=== PATIENT | male | born 1965 | race Caucasian/White ===

== ENCOUNTER 2016-12-13 17:26 | Emergency (ER) | payer OTHER ==
[2016-12-13 17:49] VITALS: RESP 18
--- NOTE | 2016-12-13 18:22 | ED ---
General Adult HPI - General Chief complaint: Psychiatric Symptoms Stated complaint: ETOH/Suicidal Time Seen by Provider: 12/13/16 17:29 Source: patient, police, EMS, RN notes reviewed, old records reviewed Mode of arrival: EMS Limitations: no limitations - History of Present Illness Initial comments: Chief complaint history of present illness this is a 51-year-old male who is intoxicated. Brought emergency room by police. States he is suicidal. States he's been kicked out of most of the facilities in town because of alcohol. Denies any current medical problems. Blood alcohol is 0.138 - Related Data Home Medications Medication Instructions Recorded Confirmed QUEtiapine FUMARATE [SEROquel] 600 mg PO HS 05/04/16 06/26/16 Previous Rx's Medication Instructions Recorded Nicotine 21Mg/24Hr Patch [Habitrol] 1 patch TRANSDERM DAILY #30 patch 06/05/16 Benztropine Mesylate [Cogentin] 1 mg PO DAILY #30 tab 06/30/16 Escitalopram [Lexapro] 20 mg PO DAILY #30 tab 06/30/16 Folic Acid 1 mg PO DAILY@1200 #30 tab 06/30/16 Haloperidol [Haldol] 10 mg PO HS #30 tab 06/30/16 Ibuprofen [Motrin] 800 mg PO Q8HR PRN #20 tab 06/30/16 LORazepam [Ativan] 1 mg PO Q4HR PRN #20 tab 06/30/16 Lisinopril [Zestril] 10 mg PO DAILY #30 tab 06/30/16 Loratadine [Claritin] 10 mg PO DAILY #30 tab 06/30/16 Propranolol HCl [Inderal Xl] 120 mg PO DAILY #30 cap.er.24h 06/30/16 QUEtiapine [SEROquel] 400 mg PO HS #30 tab 06/30/16 Thiamine [Vitamin B-1] 100 mg PO DAILY@1200 #30 tab 06/30/16 Topiramate [Topamax] 50 mg PO BID #30 tablet 06/30/16 Venlafaxine HCl [Effexor XR] 300 mg PO DAILY #30 cap.er.24h 06/30/16 cloNIDine HCL [Catapres] 0.1 mg PO TID PRN #60 tab 06/30/16 Allergies Allergy/AdvReac Type Severity Reaction Status Date / Time No Known Allergies Allergy Verified 06/26/16 04:07 Review of Systems ROS Statement: Those systems with pertinent positive or pertinent negative responses have been documented in the HPI. Review of systems patient denying any headache chest pain shortness breath GI/ problems. States not alcoholic. States he's depressed and wants to kill himself. States he's penniless homeless. He's been kicked out of most homeless shelters because of his alcohol problems. States he is suicidal all systems are reviewed. Past medical problems denies hypertension, denies any medical problems other than alcohol abuse. Surgeries he has a salma in his left femur had reconstruction of his right knee. Family history mental health issues or relatives with dependencies. Patient denies any ALLERGIES she does smoke strongly encouraged to stop the patient's alcoholic. ROS Other: All systems not noted in ROS Statement are negative. Past Medical History Past Medical History: Hypertension Additional Past Medical History / Comment(s): etoh History of Any Multi-Drug Resistant Organisms: None Reported Past Surgical History: Orthopedic Surgery Additional Past Surgical History / Comment(s): Right knee surgery and salma placed in left femur, 3 surgeries on his eyes. Past Anesthesia/Blood Transfusion Reactions: No Reported Reaction Past Psychological History: Anxiety, Bipolar, Depression, Schizoaffective Disorder Additional Psychological History / Comment(s): pt states he hears voices in his head, and they them him to harm himself and sometimes others. Smoking Status: Current every day smoker Past Alcohol Use History: Abuse, Daily, Heavy Additional Past Alcohol Use History / Comment(s): Patient states that he is a smoker one pack per day for 40 years. He states he smokes marijuana when he can get it. He drinks alcohol 12 pack per day for greater than 20 years. Patient is single and does not have any children. Patient is unemployment, homeless, and he is trying to get disability. Past Drug Use History: None Reported - Past Family History Mother Additional Family Medical History / Comment(s): Mother at age 36 from motor vehicle accident. His father is also past but does not know the cause or his age. Patient has 3 brothers that are apparently without major medical problems. General Exam - General Exam Comments Initial Comments: General: The patient is awake and answering questions appropriately. Denies any current medical problems. Denying any headache chest pain shortness breath GI/ problems. He is intoxicated breath alcohol is 0.138. Vital signs show temperature 96.2 pulse 83 respiratory rate 18 pulse ox 90% room air blood pressure 142/92 elevated systolic and diastolic noted. Patient denies ever having had hypertension in the past. He'll be in hospital and is to be dealt with here or discharge to be given then pain follow-up with a local family physician next week. Eye: Pupils are equal, extra-ocular movements are intact; there is normal conjunctiva bilaterally. No signs of icterus. Ears, nose, mouth and throat: There are moist mucous membranes and no oral lesions. Neck: The neck is supple, there is no tenderness , no complaint of neck pain. Cardiovascular: There is a regular rate and rhythm. No murmur, rub or gallop is appreciated. Respiratory: Lungs are clear to auscultation, respirations are non-labored, breath sounds are equal. No wheezes, stridor, rales, or rhonchi. Gastrointestinal: Soft, non-distended, non-tender abdomen without masses or organomegaly noted. There is no rebound or guarding present. Denies pain to his abdomen or back Back: Chronic back pain. No new issues. Musculoskeletal: Normal ROM, no tenderness, There is no pedal edema. There is no calf tenderness or swelling. Sensation intact. Neurological: No dizziness. No evidence of any focal or lateralizing findings. No complaint of any weakness. Skin: Skin is warm and dry and no rashes or lesions are noted. Psychiatric: Depressed, suicidal, plan would be to jump in front of cars. Limitations: no limitations Course Vital Signs 12/13/16 17:47 Temperature 96.2 F L Pulse Rate 83 Respiratory 18 Rate Blood Pressure 142/92 O2 Sat by Pulse 98 Oximetry Medical Decision Making - Medical Decision Making Medical decision-making. The patient was evaluated by the psychiatric nurse. The act team was notified. The plant this time is for the patient to follow-up tomorrow with [facility]. This evening [facility] He will be taken there by taxi. Patient was advised to consider alcohol rehab programs. - Lab Data Lab Results 12/13/16 Range/Units 18:30 Urine Opiates Screen Not Detected (NotDetected) Ur Oxycodone Screen Not Detected (NotDetected) Urine Methadone Screen Not Detected (NotDetected) Ur Propoxyphene Screen Not Detected (NotDetected) Ur Barbiturates Screen Not Detected (NotDetected) U Tricyclic Antidepress Not Detected (NotDetected) Ur Phencyclidine Scrn Not Detected (NotDetected) Ur Amphetamines Screen Not Detected (NotDetected) U Methamphetamines Scrn Not Detected (NotDetected) U Benzodiazepines Scrn Not Detected (NotDetected) Urine Cocaine Screen Not Detected (NotDetected) U Marijuana (THC) Screen Not Detected (NotDetected) Disposition Clinical Impression: ETOH abuse Disposition: HOME SELF-CARE Condition: Stable Instructions: Abuse of Alcohol (ED) Additional Instructions: Follow-up tomorrow morning with [facility]. Follow-up with Alcoholics Anonymous and consider going to rehab programs for alcohol abuse Time of Disposition: 00:51
[2016-12-14 00:50] VITALS: BP 129/85; PULSE 98; TEMP 98
== END 2016-12-14 00:53 | disposition home or self-care (01) ==
LOC: EC 17:26
DX: F10.129 Alcohol abuse with intoxication, unspecified (principal); Y90.6 Blood alcohol level of 120-199 mg/100 ml; Z79.899 Other long term (current) drug therapy; I10 Essential (primary) hypertension; Z59.0 Homelessness; F41.9 Anxiety disorder, unspecified; F31.9 Bipolar disorder, unspecified; F25.9 Schizoaffective disorder, unspecified; F17.200 Nicotine dependence, unspecified, uncomplicated
CPT/HCPCS: 80306; 82075; 99285

== ENCOUNTER 2017-04-03 00:11 | Emergency (ER) | payer OTHER ==
[2017-04-03 00:18] VITALS: RESP 18
--- NOTE | 2017-04-03 02:35 | ED ---
Psych HPI - General Chief Complaint: Psychiatric Symptoms Stated Complaint: Suicidal Time Seen by Provider: 04/03/17 00:43 Source: patient, RN notes reviewed Mode of arrival: ambulatory - History of Present Illness Initial Comments: Patient is a 51-year-old male presents to the emergency room for psychiatric evaluation. Patient states he's been very depressed. Patient states he does have a history of depression. Patient states he's been on depression medications for a while. Patient states he sees a counselor and psychiatrist. Patient states that over the past few days he's been developing suicidal ideations. Patient denies any specific trigger. Patient states he wants to jump off the bridge. Patient does admit that he had a few beers earlier today. Patient denies illicit drug use. Patient states he smokes about a pack per day. Patient denies homicidal ideations. Patient denies visual or auditory hallucinations. Patient denies any significant past medical history. Patient denies headache, dizziness, chest pain, shortness of breath, abdominal pain, nausea, vomiting, fevers, chills. - Related Data Home Medications Medication Instructions Recorded Confirmed QUEtiapine FUMARATE [SEROquel] 600 mg PO HS 05/04/16 04/03/17 Previous Rx's Medication Instructions Recorded Nicotine 21Mg/24Hr Patch [Habitrol] 1 patch TRANSDERM DAILY #30 patch 06/05/16 Benztropine Mesylate [Cogentin] 1 mg PO DAILY #30 tab 06/30/16 Escitalopram [Lexapro] 20 mg PO DAILY #30 tab 06/30/16 Folic Acid 1 mg PO DAILY@1200 #30 tab 06/30/16 Haloperidol [Haldol] 10 mg PO HS #30 tab 06/30/16 Ibuprofen [Motrin] 800 mg PO Q8HR PRN #20 tab 06/30/16 LORazepam [Ativan] 1 mg PO Q4HR PRN #20 tab 06/30/16 Lisinopril [Zestril] 10 mg PO DAILY #30 tab 06/30/16 Loratadine [Claritin] 10 mg PO DAILY #30 tab 06/30/16 Propranolol HCl [Inderal Xl] 120 mg PO DAILY #30 cap.er.24h 06/30/16 QUEtiapine [SEROquel] 400 mg PO HS #30 tab 06/30/16 Thiamine [Vitamin B-1] 100 mg PO DAILY@1200 #30 tab 06/30/16 Topiramate [Topamax] 50 mg PO BID #30 tablet 06/30/16 Venlafaxine HCl [Effexor XR] 300 mg PO DAILY #30 cap.er.24h 06/30/16 cloNIDine HCL [Catapres] 0.1 mg PO TID PRN #60 tab 06/30/16 Allergies Allergy/AdvReac Type Severity Reaction Status Date / Time No Known Allergies Allergy Verified 04/03/17 00:18 Review of Systems ROS Statement: Those systems with pertinent positive or pertinent negative responses have been documented in the HPI. ROS Other: All systems not noted in ROS Statement are negative. Past Medical History Past Medical History: Hypertension Additional Past Medical History / Comment(s): etoh History of Any Multi-Drug Resistant Organisms: None Reported Past Surgical History: Orthopedic Surgery Additional Past Surgical History / Comment(s): Right knee surgery and salma placed in left femur, 3 surgeries on his eyes. Past Anesthesia/Blood Transfusion Reactions: No Reported Reaction Past Psychological History: Anxiety, Bipolar, Depression, Schizoaffective Disorder Smoking Status: Current every day smoker Past Alcohol Use History: Abuse, Daily, Heavy Past Drug Use History: None Reported - Past Family History Mother Additional Family Medical History / Comment(s): Mother at age 36 from motor vehicle accident. His father is also past but does not know the cause or his age. Patient has 3 brothers that are apparently without major medical problems. General Exam - General Exam Comments Initial Comments: sitting in exam room, no acute distress. Limitations: no limitations General appearance: alert, in no apparent distress, appears intoxicated Head exam: Present: atraumatic, normocephalic, normal inspection Eye exam: Present: normal appearance ENT exam: Present: normal exam Neck exam: Present: normal inspection Respiratory exam: Present: normal lung sounds bilaterally. Absent: respiratory distress Cardiovascular Exam: Present: regular rate, normal rhythm, normal heart sounds Extremities exam: Present: normal inspection Back exam: Present: normal inspection Neurological exam: Present: alert, oriented X3, CN II-XII intact, normal gait Psychiatric exam: Present: normal affect, normal mood Skin exam: Present: warm, dry, intact, normal color. Absent: rash Course Vital Signs 04/03/17 04/03/17 00:14 03:24 Temperature 98.1 F 97.8 F Pulse Rate 102 H 82 Respiratory 18 18 Rate Blood Pressure 115/71 142/70 O2 Sat by Pulse 95 95 Oximetry Medical Decision Making - Medical Decision Making Patient is a 51-year-old male presents emergency room facility for evaluation. Patient is well-known to the emergency room and to emergency psych services. Patient was evaluated by psych. The ACT team was notified. ACT team states that they will have patient follow up with [facility] tomorrow. - Lab Data Lab Results 04/03/17 Range/Units 00:40 Urine Opiates Screen Not Detected (NotDetected) Ur Oxycodone Screen Not Detected (NotDetected) Urine Methadone Screen Not Detected (NotDetected) Ur Propoxyphene Screen Not Detected (NotDetected) Ur Barbiturates Screen Not Detected (NotDetected) U Tricyclic Antidepress Not Detected (NotDetected) Ur Phencyclidine Scrn Not Detected (NotDetected) Ur Amphetamines Screen Not Detected (NotDetected) U Methamphetamines Scrn Not Detected (NotDetected) U Benzodiazepines Scrn Not Detected (NotDetected) Urine Cocaine Screen Not Detected (NotDetected) U Marijuana (THC) Screen Not Detected (NotDetected) Disposition Clinical Impression: Depression, Alcohol intoxication Disposition: HOME SELF-CARE Condition: Good Instructions: Depression (ED) Additional Instructions: Please follow-up with outpatient [facility]. If any new symptom arises or symptoms worsen, return to ER as soon as possible. Referrals: Kermit Partida MD [Primary Care Provider] - 1-2 days Time of Disposition: 03:16
[2017-04-03 03:24] VITALS: BP 142/70; PULSE 82; TEMP 97.8
== END 2017-04-03 03:23 | disposition home or self-care (01) ==
LOC: EC 00:11
DX: F32.9 Major depressive disorder, single episode, unspecified (principal); F10.129 Alcohol abuse with intoxication, unspecified; F25.9 Schizoaffective disorder, unspecified; F31.9 Bipolar disorder, unspecified; F41.9 Anxiety disorder, unspecified; F17.200 Nicotine dependence, unspecified, uncomplicated; Z79.899 Other long term (current) drug therapy
CPT/HCPCS: 80306; 82075; 99284

== ENCOUNTER 2017-04-11 07:38 | Emergency (ER) | payer OTHER ==
--- NOTE | 2017-04-11 07:44 | ED ---
Psych HPI - General Stated Complaint: depression, sucidal Time Seen by Provider: 04/11/17 07:38 Source: patient, police, EMS, RN notes reviewed Mode of arrival: EMS - History of Present Illness Initial Comments: This is a 51-year-old male with a history depression and suicidal ideation who is apparently been off his medications for past 4 days. He states he saw depressed and suicidal he does not have any particular plan it seems. He denies any drugs or alcohol doesn't smoking cigarettes. Patient does admit to being a smoker. MD Complaint: suicidal ideation, feels depressed - Related Data Home Medications Medication Instructions Recorded Confirmed QUEtiapine FUMARATE [SEROquel] 600 mg PO HS 05/04/16 04/11/17 Previous Rx's Medication Instructions Recorded Nicotine 21Mg/24Hr Patch [Habitrol] 1 patch TRANSDERM DAILY #30 patch 06/05/16 Benztropine Mesylate [Cogentin] 1 mg PO DAILY #30 tab 06/30/16 Escitalopram [Lexapro] 20 mg PO DAILY #30 tab 06/30/16 Folic Acid 1 mg PO DAILY@1200 #30 tab 06/30/16 Haloperidol [Haldol] 10 mg PO HS #30 tab 06/30/16 Ibuprofen [Motrin] 800 mg PO Q8HR PRN #20 tab 06/30/16 LORazepam [Ativan] 1 mg PO Q4HR PRN #20 tab 06/30/16 Lisinopril [Zestril] 10 mg PO DAILY #30 tab 06/30/16 Loratadine [Claritin] 10 mg PO DAILY #30 tab 06/30/16 Propranolol HCl [Inderal Xl] 120 mg PO DAILY #30 cap.er.24h 06/30/16 QUEtiapine [SEROquel] 400 mg PO HS #30 tab 06/30/16 Thiamine [Vitamin B-1] 100 mg PO DAILY@1200 #30 tab 06/30/16 Topiramate [Topamax] 50 mg PO BID #30 tablet 06/30/16 Venlafaxine HCl [Effexor XR] 300 mg PO DAILY #30 cap.er.24h 06/30/16 cloNIDine HCL [Catapres] 0.1 mg PO TID PRN #60 tab 06/30/16 Allergies Allergy/AdvReac Type Severity Reaction Status Date / Time No Known Allergies Allergy Verified 04/11/17 08:05 Review of Systems ROS Statement: Those systems with pertinent positive or pertinent negative responses have been documented in the HPI. ROS Other: All systems not noted in ROS Statement are negative. Past Medical History Past Medical History: Hypertension Additional Past Medical History / Comment(s): etoh History of Any Multi-Drug Resistant Organisms: None Reported Past Surgical History: Orthopedic Surgery Additional Past Surgical History / Comment(s): Right knee surgery and salma placed in left femur, 3 surgeries on his eyes. Past Anesthesia/Blood Transfusion Reactions: No Reported Reaction Past Psychological History: Anxiety, Bipolar, Depression, Schizoaffective Disorder Smoking Status: Current every day smoker Past Alcohol Use History: Abuse, Daily, Heavy Past Drug Use History: None Reported - Past Family History Mother Additional Family Medical History / Comment(s): Mother at age 36 from motor vehicle accident. His father is also past but does not know the cause or his age. Patient has 3 brothers that are apparently without major medical problems. General Exam - General Exam Comments Initial Comments: This is a well-developed well-nourished awake alert oriented 3 male he is disheveled. He does demonstrate poor hygiene General appearance: alert, in no apparent distress Head exam: Present: atraumatic, normocephalic, normal inspection Eye exam: Present: normal appearance, PERRL, EOMI. Absent: scleral icterus, conjunctival injection, periorbital swelling ENT exam: Present: normal exam, mucous membranes moist Neck exam: Present: normal inspection. Absent: tenderness, meningismus, lymphadenopathy Respiratory exam: Present: normal lung sounds bilaterally. Absent: respiratory distress, wheezes, rales, rhonchi, stridor Cardiovascular Exam: Present: regular rate, normal rhythm, normal heart sounds. Absent: systolic murmur, diastolic murmur, rubs, gallop, clicks GI/Abdominal exam: Present: soft, normal bowel sounds. Absent: distended, tenderness, guarding, rebound, rigid Extremities exam: Present: normal inspection, full ROM, normal capillary refill. Absent: tenderness, pedal edema, joint swelling, calf tenderness Back exam: Present: normal inspection Neurological exam: Present: alert, oriented X3, CN II-XII intact Psychiatric exam: Present: depressed, flat affect, suicidal ideation Skin exam: Present: warm, dry, intact, normal color. Absent: rash Course Vital Signs 04/11/17 07:45 Temperature 97.7 F Pulse Rate 90 Respiratory 20 Rate Blood Pressure 150/89 O2 Sat by Pulse 95 Oximetry - Reevaluation(s) Reevaluation #1: 04/11/17 07:47 We did discuss the risks and benefits of smoking cessation certain benefits or decreased wrist of lung disease heart disease stroke various cancers. Patient does states that he will stop smoking when he denies. This conversation lasted 3. Medical Decision Making - Medical Decision Making The patient was evaluated by the psychiatric service he currently is not a risk to himself or anyone else he will be discharged Disposition Clinical Impression: Adjustment disorder Disposition: HOME SELF-CARE Condition: Good Instructions: Anxiety (ED), Generalized Anxiety Disorder (ED) Referrals: Kermit Partida MD [Primary Care Provider] - 1-2 days
[2017-04-11 07:48] VITALS: TEMP 97.7
--- NOTE | 2017-04-11 10:38 | ED ---
Disposition Clinical Impression: Adjustment disorder, Alcohol intoxication Disposition: HOME SELF-CARE Condition: Good Instructions: Generalized Anxiety Disorder (ED), Anxiety (ED) Referrals: Kermit Partida MD [Primary Care Provider] - 1-2 days
[2017-04-11 11:52] VITALS: BP 127/80; PULSE 94; RESP 20
== END 2017-04-11 11:51 | disposition home or self-care (01) ==
LOC: EC 07:38
DX: F43.20 Adjustment disorder, unspecified (principal); R45.851 Suicidal ideations; F25.9 Schizoaffective disorder, unspecified; F31.9 Bipolar disorder, unspecified; F17.200 Nicotine dependence, unspecified, uncomplicated; Z79.899 Other long term (current) drug therapy
CPT/HCPCS: 82075; 99285

== ENCOUNTER 2017-04-14 16:41 | Emergency (ER) | payer OTHER ==
--- NOTE | 2017-04-14 17:26 | ED ---
Psych HPI - General Chief Complaint: Psychiatric Symptoms Stated Complaint: Mental Health Time Seen by Provider: 04/14/17 16:58 Source: patient, police, RN notes reviewed, old records reviewed Mode of arrival: ambulatory - History of Present Illness Initial Comments: 51-year-old male presenting to the ED chief complaint of suicidal ideation. Patient reports that he has been off of his Seroquel for the past 5 days. He reports that he restarted taking it yesterday. He states without Seroquel he has not slept. Patient reports that he feels like he wants to end his life. He does have some suicidal thoughts and wants to run in oncoming traffic. He reports he is currently living at the [facility]. Previously has been homeless. He denies any recent drug or alcohol use. Patient states that he is also going through nicotine withdrawals. Patient also reports that he was having some homicidal ideations however he states that he does not really mean that. Patient states that he was just "talking". - Related Data Home Medications Medication Instructions Recorded Confirmed Gabapentin [Neurontin] 800 mg PO TID 04/14/17 04/14/17 Ibuprofen [Motrin] 800 mg PO Q8HR PRN 04/14/17 04/14/17 Previous Rx's Medication Instructions Recorded Lisinopril [Zestril] 10 mg PO DAILY #30 tab 06/30/16 Loratadine [Claritin] 10 mg PO DAILY #30 tab 06/30/16 QUEtiapine [SEROquel] 400 mg PO HS #30 tab 06/30/16 Allergies Allergy/AdvReac Type Severity Reaction Status Date / Time No Known Allergies Allergy Verified 04/11/17 08:05 Review of Systems ROS Statement: Those systems with pertinent positive or pertinent negative responses have been documented in the HPI. ROS Other: All systems not noted in ROS Statement are negative. Past Medical History Past Medical History: Hypertension Additional Past Medical History / Comment(s): etoh History of Any Multi-Drug Resistant Organisms: None Reported Past Surgical History: Orthopedic Surgery Additional Past Surgical History / Comment(s): Right knee surgery and salma placed in left femur, 3 surgeries on his eyes. Past Anesthesia/Blood Transfusion Reactions: No Reported Reaction Past Psychological History: Anxiety, Bipolar, Depression, Schizoaffective Disorder Smoking Status: Current every day smoker Past Alcohol Use History: Abuse, Daily, Heavy Past Drug Use History: None Reported - Past Family History Mother Additional Family Medical History / Comment(s): Mother at age 36 from motor vehicle accident. His father is also past but does not know the cause or his age. Patient has 3 brothers that are apparently without major medical problems. General Exam - General Exam Comments Initial Comments: 51-year-old male. No acute distress. Limitations: no limitations General appearance: alert, in no apparent distress Head exam: Present: atraumatic, normocephalic, normal inspection Eye exam: Present: normal appearance, PERRL, EOMI. Absent: scleral icterus, conjunctival injection, periorbital swelling ENT exam: Present: normal exam, mucous membranes moist Neck exam: Present: normal inspection. Absent: tenderness, meningismus, lymphadenopathy Respiratory exam: Present: normal lung sounds bilaterally. Absent: respiratory distress, wheezes, rales, rhonchi, stridor Cardiovascular Exam: Present: regular rate, normal rhythm, normal heart sounds. Absent: systolic murmur, diastolic murmur, rubs, gallop, clicks GI/Abdominal exam: Present: soft, normal bowel sounds. Absent: distended, tenderness, guarding, rebound, rigid Extremities exam: Present: normal inspection, full ROM, normal capillary refill. Absent: tenderness, pedal edema, joint swelling, calf tenderness Back exam: Present: normal inspection Neurological exam: Present: alert, oriented X3, CN II-XII intact Psychiatric exam: Present: normal affect, normal mood, homicidal ideation, suicidal ideation (Patient wants to run into the streets. ) Skin exam: Present: warm, dry, intact, normal color. Absent: rash Course Vital Signs 04/14/17 16:42 Temperature 97.5 F L Pulse Rate 102 H Respiratory 16 Rate Blood Pressure 132/90 O2 Sat by Pulse 96 Oximetry Medical Decision Making - Medical Decision Making 51-year-old male presents the ED with PD for chief complaint suicidal ideation. He reports that he wanted to walk on traffic. Patient reports that he has been out of his Seroquel and recently started back on it. Reports that he has a scaling prescription is not having Much sleep. Patient evaluated by EPS. They determined the patient was out of his Seroquel due to the fact that he was placed in shelter for the past 3 days after violating probation for drinking. Patient does admit to this. Patient will be discharged at this time back to the [facility]. They feel is safe to discharge the patient home. He does have a court order to be there. Patient agrees. Discussed these make his medication and follow his probation. - Lab Data Lab Results 04/14/17 Range/Units 18:53 Urine Opiates Screen Not Detected (NotDetected) Ur Oxycodone Screen Not Detected (NotDetected) Urine Methadone Screen Not Detected (NotDetected) Ur Propoxyphene Screen Not Detected (NotDetected) Ur Barbiturates Screen Not Detected (NotDetected) U Tricyclic Antidepress Not Detected (NotDetected) Ur Phencyclidine Scrn Not Detected (NotDetected) Ur Amphetamines Screen Not Detected (NotDetected) U Methamphetamines Scrn Not Detected (NotDetected) U Benzodiazepines Scrn Not Detected (NotDetected) Urine Cocaine Screen Not Detected (NotDetected) U Marijuana (THC) Screen Not Detected (NotDetected) Disposition Clinical Impression: Depression Disposition: HOME SELF-CARE Condition: Good Instructions: Depression (ED) Additional Instructions: Follow-up with [facility] and the [facility]. Return to the emergency department if any alarming signs or symptoms occur. Take your medications as prescribed. Referrals: Kermit Partida MD [Primary Care Provider] - 1-2 days Time of Disposition: 21:37
[2017-04-15 04:24] VITALS: BP 132/61; PULSE 88; RESP 18; TEMP 98
== END 2017-04-14 22:00 | disposition home or self-care (01) ==
LOC: EC 16:41
DX: F32.9 Major depressive disorder, single episode, unspecified (principal); F17.200 Nicotine dependence, unspecified, uncomplicated; Z79.899 Other long term (current) drug therapy
CPT/HCPCS: 80306; 82075; 99285

== ENCOUNTER 2017-06-17 05:33 | Inpatient (IN) | payer MEDICAID ==
[2017-06-17] MEDS ORDERED: MAGNESIUM HYDROXIDE 2,400 MG/10 ML CUP PO PRN (17:59)
[2017-06-17] MEDS ORDERED: MAG HYDROX/AL HYDROX/SIMETH 30 ML CUP PO PRN (17:59)
[2017-06-17] MEDS ORDERED: LORazepam 1 MG TAB PO PRN ×2 (18:03→19:39)
[2017-06-17] MEDS: NICOTINE 14MG/24HR PATCH TRANSDERM SCH (18:24)
[2017-06-18 06:34] VITALS: RESP 16; TEMP 98
[2017-06-18] MEDS: NICOTINE 14MG/24HR PATCH TRANSDERM SCH (09:07)
--- NOTE | 2017-06-18 11:23 | P.HP ---
Psychiatric H&P - . H&P Date: 06/18/17 History & Physical: Allergies Allergy/AdvReac Type Severity Reaction Status Date / Time No Known Allergies Allergy Verified 04/11/17 08:05 Vital Signs Temp 98.0 F 06/18/17 06:33 Pulse 95 06/18/17 06:33 Resp 16 06/18/17 06:33 BP 125/79 06/18/17 06:33 Pulse Ox Intake & Output 06/17/17 06/18/17 06/18/17 18:59 06:59 18:59 Weight 72.575 kg Laboratory Last Values TSH 3.530 mIU/L (0.465-4.680) 06/18/17 08:24 06/18/17 10:37 Identification: Patient is a 51-year-old male who presented to the emergency room stating that he doesn't feel good and wanted to kill himself, by jumping in the river or jumping in front of a car. History of Present Illness: [Patient presents to the emergency room reporting that he did not feel good and wanted to kill himself. Patient is a poor historian and has not been seen since March [address] [facility]. Patient states he has let [facility] where he has been living several days ago because he didn't like the rules there. He states that he was "tired of it". Patient states he's been living on the streets since that time and states he has not taken any of his medications for the last several days. Patient also reports that he's been drinking 8 beers a day. Patient also presented to the emergency room and claimed that he was aRymond Jones and so some of this information is on that chart. Patient is unable to tell me why he used a different name when he presented to the emergency room for admission. Patient is unable to tell me why he has been feeling suicidal, in reviewing the most recent [facility] medication review dated 03/27/2017, patient was in the act program and it is unclear to me if he has followed up with that or not. Patient states that he last took his medications 2 days ago referring to his gabapentin and Seroquel he is unclear about whether he is been taking his lisinopril or not. Patient does not give any prior history stating he is unclear about when he was last in the hospital or not. Patient tells me that he is unclear about how long he has been a [facility]. Patient states that he has had 1 prior suicide attempt a long time ago he states he jumped in the car and this is when he fractured his leg and shattered his knee however he is unable to tell me when this was. Past Psychiatric History: Per the record the patient was admitted here in June 2016 for the last time he says he has about 5 inpatient admissions unable to tell me when they began. Patient has no idea what other medications he's been on but per the record the patient has been tried on numerous medications in the past per [facility] record patient has been on Celexa Effexor and Remeron naltrexone Topamax propranolol clonidine. Patient's last appointment at [facility] in March he was taking 400 mg of Seroquel at bedtime, gabapentin 800 mg 3 times a day and lisinopril 10 mg once a day is unclear to me if these are his current meds or not. Past Medical/Surgical History: Patient states that his right foot hurts and he is in a wheelchair due to this his x-rays of his right ankle and right foot showed no acute injuries. Patient reports that he fractured his left femur, and shattered his right knee in the past and he says he thinks he has a history of hypertension but is unsure. Home Medications Medication Instructions Recorded Confirmed Gabapentin [Neurontin] 800 mg PO TID 04/14/17 04/14/17 Ibuprofen [Motrin] 800 mg PO Q8HR PRN 04/14/17 04/14/17 Previous Rx's Medication Instructions Recorded Lisinopril [Zestril] 10 mg PO DAILY #30 tab 06/30/16 Loratadine [Claritin] 10 mg PO DAILY #30 tab 06/30/16 QUEtiapine [SEROquel] 400 mg PO HS #30 tab 06/30/16 Family History: Patient states that he known as family has a psychiatric history and no one in his family has an alcohol or drug use history and no one has completed suicide in his family. Social History: Patient states he was born and raised in [place] and his parents are both and he has 3 living brothers. He quit high school in the 11th grade but did obtain his GED. 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 Is unable to tell me why he stopped working. Patient states he is on disability and this is how he supports himself currently. Patient is not and has no children and denies any history of abuse. Patient does have a guardian. Substance Use History: Patient states he began using alcohol at the age of 16 and is unable to tell me what his longest sobriety was and he states he drinks 8 beers a day "as long as I can afford it". Patient denies any current drug use and states he has no history of IV drug use in the past. Patient states he used marijuana in the past. Legal History: Patient states he's had 6 DUIs Mental Status:Appearance/Attitude: Patient is in a wheelchair due to pain in his right foot, he was dressed in a hospital gown and he was superficially cooperative and kept his head down and made no eye contact during the interview. Behavior: Patient does not display any psychomotor agitation or retardation. Speech/Language: Patient's speech is not spontaneous, he only responds to questions and he is coherent. Thought Process: Patient's responses to questions are mostly "I don't know or I can't remember" no loose associations or flight of ideas were noted. Thought Content: Patient denies any auditory or visual hallucinations no paranoid or delusional ideation was elicited. Patient states that he just wants to because he doesn't feel good. Patient can't tell me if he has been sleeping or eating well prior to his admission. Suicidal/Homicidal Ideation: Patient states he had suicidal thoughts to jump in the river or jump in front of a car prior to admission and this is why he came to the emergency room yesterday and he denies any homicidal ideation at this time. Sensorium/Cognition: Patient is alert and oriented to person, date, and location and his memory was not formally tested due to his not being cooperative. Mood/Affect: Patient's mood is irritable and his affect is blunted. Insight/Judgement: Patient's insight and judgment are limited. Intellectual Functioning: Patient's intellectual functioning appears average. Strength/Weaknesses: Patient was on the act team, living at [facility]/ continued to use alcohol and noncompliance with medication Assessment: Patient presented to the emergency room and used a different name, he is unable to tell me why but states he came to the emergency room because he "doesn't feel good" and states that he wants to kill himself he had thoughts of jumping in the river or jumping in front of a car. Patient is supposed to be followed by the act team that he is unable to tell me when he was last seen by them. Patient was last seen at [facility] in March of this year. Patient states he has not taken his medications for the last 2 days after he left the [facility] where he had been living. He states he was tired of it there and didn't like the rules. Patient has been using alcohol 8 beers a day for the last several days and it is unclear if he been drinking prior to that or not. Admission Diagnoses: Alcohol-induced depressive disorder, alcohol use disorder Plan: Patient was admitted on a voluntary basis, routine laboratory studies were ordered and these were done under the name of Raymond Jones but they revealed that the patient's white count revealed an elevated white count of 11.4 with an increased neutrophil count of 8.1. Patient's metabolic panel revealed an elevated alk phos and his TSH was within normal limits. His UDS was negative for any drug use and his blood alcohol level in the emergency room was 0.183. Patient also had a x-ray of his right foot and right ankle both of which showed no acute injuries. Patient will be placed on routine precautions, ordered group and activity therapy and a physical examination was also performed when he was admitted under the name of Raymond Jones. Patient will be restarted on his Seroquel 400 milligrams at bedtime and gabapentin 800 mg 3 times a day. Will continue to follow the patient's blood pressure while he was in the hospital and evaluate the need for lisinopril. Will discuss with [facility] with the discharge plans for this gentleman are, can he returned to [facility] and is he still being followed by the act team. 06/18/17 10:41 06/18/17 11:10 06/18/17 11:22
--- NOTE | 2017-06-18 11:55 | HP ---
HISTORY AND PHYSICAL DATE OF SERVICE: June 17, 2017. IDENTIFYING DATA: The patient is a 51-year-old male, he had been living in [facility]. He was referred to the emergency room for evaluation. CHIEF COMPLAINT: The patient was depressed he had suicide thinking. He had jumped in the [place] with the idea of killing himself. He stated that when he hit the water he realized that this was an impulsive mistake. HISTORY OF PRESENT ILLNESS: The patient has had long-term psychiatric issues. He had a number of past hospitalizations. His last psych admission at this facility was June 20, 2016. At that time, he was admitted due to depression. His complaint at that time, was that he had someone has stole his medications. He was off his medications for a week or 2 and developed increasing depression with suicide thoughts. Medications included Seroquel and Effexor, Cogentin, Lexapro, Haldol and Topamax. He was admitted for substance use disorder and depression. The patient states that he has been followed through [facility]. He said he was seen a couple of weeks ago though he was vague on details. He says that he has had a number of stress issues which identified as "life in general." Though he did not provide details. He notes that he had been living in a [facility] and found that he had stress in that setting. He apparently has had on and off drinking though he did not provide details. He did say that he drank on the day prior to admission. Though said otherwise he was off of alcohol for about 1 month until a few days prior to admission. He was in the [facility]. He was vague about his alcohol use prior to 1 month ago. He notes that he has had long-term stress years issues. One included that his mother in a motor vehicle accident in 1996 when she essentially was going to work for her last day at a job where she was working to take care of him. He notes that after that he moved home to take care of his father who needed support in the house. The patient's father had alcoholism. He ultimately in 2014. The patient notes that he was exposed to alcohol in the home and started drinking himself at age 15. He said recently he had been drinking about 10 high alcohol content beers per day. He reports some vague symptoms of auditory hallucinations that come and go. He notes anxiety. He does not clearly identify panic attacks. It is unclear whether he has posttraumatic symptoms. There is question about medications that he was taking at home. There is a question that he may have been on Seroquel 400 mg at bedtime as well as Neurontin 800 mg 3 times a day. Though we have no information to confirm that. He is admitted for further evaluation. SUBSTANCE USE HISTORY: As above. Past medical history, review of systems and physical exam as per medical consultation. Family and social history: The only information I have is as above. MENTAL STATUS EXAM: Patient was somewhat unkempt in appearance. Eye contact fair. Psychomotor activity was a little restless. Speech was clear though he spoke with a soft voice. He had an anxious affect. His mood was dysphoric. He was moderately distressed. He did make an effort to answer formal cognitive questions. He appeared oriented and alert. He seemed to have recent remote memory intact. Insight was questionable. Judgment poor. Fund of knowledge and intellectual level average. ASSESSMENT: This 51-year-old male is admitted for depression and substance use disorder. He has had long-term psychiatric issues. Social support system appears to be limited. Strengths include his efforts to connect with outpatient treatment. Weakness includes risk for relapse to alcohol use. DIAGNOSES: 1. Major depressive disorder, chronic and recurrent with acute exacerbation. Unclear severity without psychotic features. 2. Alcohol dependence and acute alcohol abuse. 3. Hypertension. RECOMMENDATIONS: Patient will be admitted for comprehensive medical psychiatric and psychosocial evaluation. We will engage the patient in individual and group therapeutic activity. At this time, I will defer starting any psychotropic medications. Will continue to monitor for both withdrawal issues as well as mood difficulties. We will focus on stabilization and discharge planning. MMODL / IJN: [id number] /
[2017-06-18] MEDS: ACETAMINOPHEN TAB 325 MG TAB PO PRN ×2 (13:30→19:29)
[2017-06-18] MEDS: GABAPENTIN 400 MG CAP PO SCH ×2 (16:26→20:53)
[2017-06-18] MEDS ORDERED: QUEtiapine 400 MG TAB PO SCH (21:00)
[2017-06-19 06:46] VITALS: BP 112/74; PULSE 93
[2017-06-19] MEDS: NICOTINE 14MG/24HR PATCH TRANSDERM SCH (09:49)
[2017-06-19] MEDS: GABAPENTIN 400 MG CAP PO SCH (09:49)
--- NOTE | 2017-06-19 12:13 | P.DS ---
Providers Date of admission: 06/17/17 05:33 Expected date of discharge: 06/19/17 Attending physician: Keerthi Chavez MD Consults: 06/17/17 17:59 Consult Physician Routine Consulting Provider: Osmany Benito Consult Reason/Comments: h and p, eval and tx. r/o metabolic disorder Do you want consulting provider notified?: Already Contacted Primary care physician: [facility] Course: Discharge Diagnoses:[ Alcohol-induced depressive disorder, alcohol use disorder , moderate Reason for Admission: Patient presented to the emergency room reporting that he did not feel good and wanted to kill himself. Patient was a poor historian and was last seen at [facility] in March for a medication management appointment. Patient is also part of the act team. Patient states that he left a [place] house because he did not like the rules there and states that he is tired of it. Reports that he been living on the streets and has not taken any of his medication for the last several days. He also reported that he has been using 8 beers a day. When patient presented to the emergency room he claimed that he was his brother Raymond Jones and this was later found to be incorrect and he was correctly identified as Zhao Jones. Patient is unable to verbalize why he has been feeling suicidal, stating that he would throw himself in the river or jump in front of a car other than that he dislikes having to follow rules. Patient has been prescribed gabapentin 800 mg 3 times a day, Seroquel 400 mg at bedtime and Zestril 10 mg daily which she is uncertain if he has taken any of these for the last several days. Patient has multiple admissions in the past his last one here was in June 2016.] Hospital Course: Patient was admitted on a voluntary basis, routine laboratory studies were ordered these were done under the name of Raymond Jones but they revealed that the patient's white count was elevated to 11.4 with an increased neutrophil count of 8.1. His metabolic panel revealed an elevated alk phos and his TSH was within normal limits. His UDS on admission was negative for any drug use and his blood alcohol level in the emergency room was 0.183. Patient also had an x-ray of his right foot and ankle due to complaints of pain and there were no acute injuries noted. Patient was placed on routine precautions and he was ordered group and activity therapy and a medical consultation was also obtained. Patient was restarted on his prior medications of Seroquel 400 mg at bedtime, gabapentin 800 mg 3 times a day. Patient was not restarted on his lisinopril as he claimed that he had not been taking it. Patient's blood pressure in the hospital was within normal limits. Patient was discussed with [facility] and they requested the patient be rude at least for his mental health court date today as well as follow up with the act team. Discharge Mental Status:Appearance/Attitude: Patient is appropriately dressed, makes intermittent eye contact and is superficially cooperative. Behavior: Patient does not display any psychomotor agitation or retardation. Speech/Language: Patient's speech is nonspontaneous he is only responding to questions, and he is coherent. Thought Process: Patient is goal-directed in his brief responses to questions and there is no evidence of flight of ideas or loose associations. Thought Content: Patient denies any auditory or visual hallucinations and no delusions or paranoid ideation were elicited. Patient states "I hate all the stuff I have to go through" and I'm going to act crazy so that I can stay in the hospital. He stated that he was tired of "following all of these rules" and ripped off his hospital bracelet. Patient states that he does not want to return to the [facility] does not want to follow up with anything. Suicidal/Homicidal Ideation: Patient denied any current suicidal or homicidal ideation but stated I may act crazy in the future. Sensorium/Cognition: Patient is alert and oriented to person, place, and time and his memory Mood/Affect: Patient's mood is argumentative and his affect is appropriate to his mood Insight/Judgement: Patient's insight and judgment are limited. Laboratory Last Values TSH 3.530 mIU/L (0.465-4.680) 06/18/17 08:24 Risk Assessment: Patient's risk for self-harm is moderate due to his continued use of alcohol, noncompliance with housing and follow-up care as well as medication. Discharge Plan: Patient will be discharged to return to the [facility] and will be followed by the act team patient will be transported to his mental health court hearing this afternoon. Patient will continue on Seroquel 400 mg at bedtime and gabapentin 800 mg 3 times a day and he will be given prescriptions for these. Patient will also continue on lisinopril and a prescription will be given for this. Patient was advised to avoid any alcohol and be compliant with medication and follow up care. Patient Condition at Discharge: Stable Plan - Discharge Summary New Discharge Prescriptions: Continue Loratadine [Claritin] 10 mg PO DAILY #30 tab Ibuprofen [Motrin] 800 mg PO Q8HR PRN PRN Reason: Pain Gabapentin [Neurontin] 800 mg PO TID #52 Lisinopril [Zestril] 10 mg PO DAILY #14 tab QUEtiapine [SEROquel] 400 mg PO HS #14 tab Discharge Medication List Loratadine [Claritin] 10 mg PO DAILY #30 tab 06/30/16 [Rx] Ibuprofen [Motrin] 800 mg PO Q8HR PRN 04/14/17 [History] Gabapentin [Neurontin] 800 mg PO TID #52 06/19/17 [Rx] Lisinopril [Zestril] 10 mg PO DAILY #14 tab 06/19/17 [Rx] QUEtiapine [SEROquel] 400 mg PO HS #14 tab 06/19/17 [Rx] Patient Instructions/Handouts: Abuse of Alcohol (DC) Activity/Diet/Wound Care/Special Instructions: Remove all weapons and firearms from the home. No street drugs or alcohol. Regular Diet. Activity as tolerated. Follow up care with your PCP in 1-2 days. Keep all scheduled follow up appointments for continuity of care. Any problems call your PCP or the Crisis Line Discharge Disposition: OTHER INSTITUTION NOT DEFINED
== END 2017-06-19 13:54 | disposition home or self-care (01) | DRG 897 ==
LOC: 3MHU 05:33
PROVIDERS: ADMIT Psychiatry & Neurology Psychiatry; ATTEND Psychiatry & Neurology Psychiatry
DX: F10.24 Alcohol dependence with alcohol-induced mood disorder (principal); R45.851 Suicidal ideations; I10 Essential (primary) hypertension; F32.9 Major depressive disorder, single episode, unspecified; F41.9 Anxiety disorder, unspecified; Z79.899 Other long term (current) drug therapy; Z91.14 Patient's other noncompliance with medication regimen; Z91.19 Patient's noncompliance with other medical treatment and regimen; Z91.5 Personal history of self-harm
CPT/HCPCS: 84443

== ENCOUNTER 2017-07-16 21:30 | Emergency (ER) | payer MEDICAID, OTHER ==
--- NOTE | 2017-07-16 22:00 | ED ---
General Adult HPI - General Stated complaint: ETOH Time Seen by Provider: 07/16/17 21:32 Source: patient, EMS, RN notes reviewed, old records reviewed - History of Present Illness Initial comments: 51-year-old male with known history of depression and alcohol abuse presents from the bus stop acutely intoxicated. Patient does report to EMS that he is suicidal. Patient denies a specific plan, states he wants to "". Patient originally stated he would like to be admitted directly to the psychiatric floor. When informed that he could not be admitted psychiatrically without suicidal thoughts he immediately began complaining of suicidal ideation. Patient has complaints of chronic back pain, no chest pain or shortness of breath. No nausea vomiting or diarrhea. Patient does admit to drinking alcohol today. - Related Data Home Medications Medication Instructions Recorded Confirmed Ibuprofen [Motrin] 800 mg PO Q8HR PRN 04/14/17 07/16/17 Previous Rx's Medication Instructions Recorded Loratadine [Claritin] 10 mg PO DAILY #30 tab 06/30/16 Gabapentin [Neurontin] 800 mg PO TID #52 06/19/17 Lisinopril [Zestril] 10 mg PO DAILY #14 tab 06/19/17 QUEtiapine [SEROquel] 400 mg PO HS #14 tab 06/19/17 Allergies Allergy/AdvReac Type Severity Reaction Status Date / Time No Known Allergies Allergy Verified 07/16/17 22:02 Review of Systems ROS Statement: Those systems with pertinent positive or pertinent negative responses have been documented in the HPI. ROS Other: All systems not noted in ROS Statement are negative. Past Medical History Past Medical History: Hypertension Additional Past Medical History / Comment(s): etoh History of Any Multi-Drug Resistant Organisms: None Reported Past Surgical History: Orthopedic Surgery Additional Past Surgical History / Comment(s): Right knee surgery and salma placed in left femur, 3 surgeries on his eyes. Past Anesthesia/Blood Transfusion Reactions: No Reported Reaction Past Psychological History: Anxiety, Bipolar, Depression, Schizoaffective Disorder Smoking Status: Current every day smoker Past Alcohol Use History: Abuse, Daily, Heavy Past Drug Use History: None Reported - Past Family History Mother Additional Family Medical History / Comment(s): Mother at age 36 from motor vehicle accident. His father is also past but does not know the cause or his age. Patient has 3 brothers that are apparently without major medical problems. General Exam Limitations: no limitations General appearance: alert, in no apparent distress, appears intoxicated Head exam: Present: normocephalic, other (Superficial abrasion above the left eye) Eye exam: Present: normal appearance, PERRL ENT exam: Present: normal exam Neck exam: Present: normal inspection, full ROM. Absent: tenderness Respiratory exam: Present: normal lung sounds bilaterally. Absent: respiratory distress Cardiovascular Exam: Present: regular rate, normal rhythm GI/Abdominal exam: Present: soft. Absent: distended, tenderness Extremities exam: Present: normal inspection, full ROM Back exam: Present: full ROM. Absent: normal inspection, tenderness Neurological exam: Present: alert, oriented X3. Absent: motor sensory deficit Psychiatric exam: Present: depressed, flat affect, suicidal ideation Skin exam: Present: warm, dry, intact Course Vital Signs 07/16/17 07/16/17 07/17/17 21:57 23:20 00:51 Temperature 98.1 F Pulse Rate 95 Respiratory 16 18 18 Rate Blood Pressure 167/90 O2 Sat by Pulse 96 Oximetry 07/17/17 07/17/17 02:52 05:00 Temperature 98.7 F Pulse Rate 93 Respiratory 16 16 Rate Blood Pressure 103/75 O2 Sat by Pulse 99 Oximetry - Reevaluation(s) Reevaluation #1: 07/17/17 05:46 Patient is medically cleared, clinically sober. Medical Decision Making - Medical Decision Making 51-year-old male presenting with alcohol intoxication. Patient does have abrasion over the left eye. Head CT is obtained. This does show hydrocephalus , this is unchanged from previous. No intracranial hemorrhage. Patient is awaiting clinical sobriety and EPS evaluation. There is a court order for Zhao Jones to not be evaluated by EPS. He will be discharged into the custody of police. They will take him to [facility] or to his [facility]. Patient has tried on multiple occasions to be admitted for psychiatric reasons, including using his brothers IV. He did not begin complaining of suicidal ideation until he was told he could not be admitted. Diagnosis: Alcohol intoxication, closed head injury - Lab Data Lab Results 07/16/17 Range/Units 21:54 Urine Opiates Screen Not Detected (NotDetected) Ur Oxycodone Screen Not Detected (NotDetected) Urine Methadone Screen Not Detected (NotDetected) Ur Propoxyphene Screen Not Detected (NotDetected) Ur Barbiturates Screen Not Detected (NotDetected) U Tricyclic Antidepress Not Detected (NotDetected) Ur Phencyclidine Scrn Not Detected (NotDetected) Ur Amphetamines Screen Not Detected (NotDetected) U Methamphetamines Scrn Not Detected (NotDetected) U Benzodiazepines Scrn Not Detected (NotDetected) Urine Cocaine Screen Not Detected (NotDetected) U Marijuana (THC) Screen Not Detected (NotDetected) Disposition Clinical Impression: Alcohol dependence, Forehead laceration Disposition: HOME SELF-CARE Condition: Good Instructions: Alcohol Intoxication (ED) Additional Instructions: Patient will return to emergency department with worsening symptoms. Follow up with both his primary care physician and his psychiatrist. Referrals: None,Stated [Primary Care Provider] - 1-2 days Time of Disposition: 05:48
--- NOTE | 2017-07-16 22:43 | CT ---
EXAMINATION TYPE: CT brain nikolai wo con DATE OF EXAM: 07/16/2017 COMPARISON: 05/25/2016 HISTORY: Headache. Neck pain. CT DLP: 1454.50 mGycm Automated exposure control for dose reduction was used. TECHNIQUE: CT scan of the head and cervical spine are performed without contrast. FINDINGS: There is some cerebral cortical atrophy with enlargement of the ventricles. There is no m ass effect nor midline shift. There is no sign of intracranial hemorrhage. The calvarium is intact. There is multilevel anterior fusion surgery from C4 to C7. Vertebra have normal alignment. Posterior elements appear intact. Skull base is intact. There is no sign of a fracture. There is severe thinnin g or agenesis of the corpus callosum. IMPRESSION: No acute intracranial abnormality. 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 No fracture. There is no significant change in the cervical spine and brain compared to old exam.
[2017-07-17 02:53] VITALS: RESP 16
[2017-07-17 06:55] VITALS: BP 122/85; PULSE 116; TEMP 98.3
== END 2017-07-17 06:55 | disposition home or self-care (01) ==
LOC: EC 21:30 → EEVIPCON 21:30 → EC 07-17 06:55
DX: S01.81XA Laceration without foreign body of other part of head, initial encounter (principal); F10.229 Alcohol dependence with intoxication, unspecified; F17.200 Nicotine dependence, unspecified, uncomplicated; X58.XXXA Exposure to other specified factors, initial encounter; Y92.89 Other specified places as the place of occurrence of the external cause
CPT/HCPCS: 70450; 72125; 80306; 82075; 99285

== ENCOUNTER 2017-07-23 10:59 | Emergency (ER) | payer OTHER ==
[2017-07-23 11:50] VITALS: BP 144/93; PULSE 105; RESP 17; TEMP 98.3
--- NOTE | 2017-07-23 12:13 | ED ---
General Adult HPI - General Chief complaint: Recheck/Abnormal Lab/Rx Stated complaint: toenail issue Time Seen by Provider: 07/23/17 12:01 Source: patient Mode of arrival: ambulatory Limitations: no limitations - History of Present Illness Initial comments: 51-year-old male patient presents to emergency department today for evaluation of overgrown and thick toenails. Patient states that he has difficulty cutting them on his own as they do not fit into a regular set of nail clippers. Patient denies ever having staked care for this from his primary care physician or mingler operator. He states that they are getting to the point where they're uncomfortable in his shoes. He denies any erythema, drainage, fever, chills, or difficulty ambulating. He denies any other physical concerns. - Related Data Home Medications Medication Instructions Recorded Confirmed Ibuprofen [Motrin] 800 mg PO Q8HR PRN 04/14/17 07/16/17 Previous Rx's Medication Instructions Recorded Loratadine [Claritin] 10 mg PO DAILY #30 tab 06/30/16 Gabapentin [Neurontin] 800 mg PO TID #52 06/19/17 Lisinopril [Zestril] 10 mg PO DAILY #14 tab 06/19/17 QUEtiapine [SEROquel] 400 mg PO HS #14 tab 06/19/17 Allergies Allergy/AdvReac Type Severity Reaction Status Date / Time No Known Allergies Allergy Verified 07/16/17 22:02 Review of Systems ROS Statement: Those systems with pertinent positive or pertinent negative responses have been documented in the HPI. ROS Other: All systems not noted in ROS Statement are negative. Past Medical History Past Medical History: Hypertension Additional Past Medical History / Comment(s): etoh History of Any Multi-Drug Resistant Organisms: None Reported Past Surgical History: Orthopedic Surgery Additional Past Surgical History / Comment(s): Right knee surgery and salma placed in left femur, 3 surgeries on his eyes. Past Anesthesia/Blood Transfusion Reactions: No Reported Reaction Past Psychological History: Anxiety, Bipolar, Depression, Schizoaffective Disorder Smoking Status: Current every day smoker Past Alcohol Use History: Abuse, Daily, Heavy Past Drug Use History: None Reported - Past Family History Mother Additional Family Medical History / Comment(s): Mother at age 36 from motor vehicle accident. His father is also past but does not know the cause or his age. Patient has 3 brothers that are apparently without major medical problems. General Exam Limitations: no limitations General appearance: alert, in no apparent distress, other (This is a well- developed, well-nourished adult male patient in no acute distress. Vital signs upon presentation her temperature 98.3F, pulse 105, respirations 17, blood pressure 144/93, pulse ox 100% on room air.) Respiratory exam: Present: normal lung sounds bilaterally. Absent: respiratory distress, wheezes, rales, rhonchi, stridor Cardiovascular Exam: Present: regular rate, normal rhythm, normal heart sounds. Absent: systolic murmur, diastolic murmur, rubs, gallop, clicks Neurological exam: Present: alert, oriented X3, CN II-XII intact Psychiatric exam: Present: normal affect, normal mood Skin exam: Present: warm, dry, intact, normal color. Absent: rash Course Vital Signs 07/23/17 11:45 Temperature 98.3 F Pulse Rate 105 H Respiratory 17 Rate Blood Pressure 144/93 O2 Sat by Pulse 100 Oximetry Medical Decision Making - Medical Decision Making 51-year-old male patient presented for assistance cutting his toenails. I explained to patient that we did not have the proper equipment for this and I would refer him to a mingler operator. He stated that he did have this procedure done here before and he was upset that I would not help him. He stated that he had the procedure done here before. I told him I would look through the medical records to see which equipment was used at that time, when I returned to the room patient had left the department. Disposition Clinical Impression: Overgrown toenails Disposition: HOME SELF-CARE Condition: Good Additional Instructions: Follow up with a mingler operator as soon as possible for further evaluation. Follow up with your primary care physician for a recheck. Return here for any new, worsening, or concerning symptoms. Referrals: Kermit Partida MD [Primary Care Provider] - 1-2 days Yong Chambers DPM [STAFF PHYSICIAN] - 1-2 days Time of Disposition: 12:12
== END 2017-07-23 12:30 | disposition home or self-care (01) ==
LOC: EC 10:59 → EEVIPCON 10:59 → EC 12:30
DX: L60.8 Other nail disorders (principal); F17.200 Nicotine dependence, unspecified, uncomplicated
CPT/HCPCS: 99282

== ENCOUNTER 2017-08-31 19:12 | Inpatient (IN) | payer MEDICAID, OTHER ==
--- NOTE | 2017-08-31 20:28 | ED ---
General Adult HPI - General Chief complaint: Psychiatric Symptoms Stated complaint: Mental Health Time Seen by Provider: 08/31/17 19:37 Source: patient, RN notes reviewed Mode of arrival: ambulatory Limitations: no limitations - History of Present Illness Initial comments: 52-year-old male presents emergency department with a chief complaint of suicidal thoughts. Patient states that everything is just feeling very overwhelmed. He feels like he wanted to kill himself earlier and he had a plan. He states that he is not homicidal. He states that he's been taking his medications as well as using alcohol. He states that he just feels like he needs help he's been admitted psychiatrically for any feels like he is at that point again. Patient denies any recent fever, chills, shortness of breath, chest pain, back pain, abdominal pain, nausea vomiting, numbness or tingling, dysuria or hematuria, constipation or diarrhea, headaches or visual changes, or any other current symptoms. - Related Data Previous Rx's Medication Instructions Recorded Gabapentin [Neurontin] 800 mg PO TID #52 06/19/17 QUEtiapine [SEROquel] 400 mg PO HS #14 tab 06/19/17 Allergies Allergy/AdvReac Type Severity Reaction Status Date / Time No Known Allergies Allergy Verified 08/31/17 20:18 Review of Systems ROS Statement: Those systems with pertinent positive or pertinent negative responses have been documented in the HPI. ROS Other: All systems not noted in ROS Statement are negative. Past Medical History Past Medical History: Hypertension Additional Past Medical History / Comment(s): etoh History of Any Multi-Drug Resistant Organisms: None Reported Past Surgical History: Orthopedic Surgery Additional Past Surgical History / Comment(s): Right knee surgery and salma placed in left femur, 3 surgeries on his eyes. Past Anesthesia/Blood Transfusion Reactions: No Reported Reaction Past Psychological History: Anxiety, Bipolar, Depression, Schizoaffective Disorder Smoking Status: Current every day smoker Past Alcohol Use History: Abuse, Daily, Heavy Past Drug Use History: None Reported - Past Family History Mother Additional Family Medical History / Comment(s): Mother at age 36 from motor vehicle accident. His father is also past but does not know the cause or his age. Patient has 3 brothers that are apparently without major medical problems. General Exam Limitations: no limitations General appearance: alert, in no apparent distress ENT exam: Present: normal exam, mucous membranes moist Respiratory exam: Present: normal lung sounds bilaterally. Absent: respiratory distress, wheezes, rales, rhonchi, stridor Cardiovascular Exam: Present: regular rate, normal rhythm, normal heart sounds. Absent: systolic murmur, diastolic murmur, rubs, gallop, clicks Back exam: Present: normal inspection Neurological exam: Present: alert, oriented X3 Psychiatric exam: Present: suicidal ideation. Absent: homicidal ideation Skin exam: Present: warm, dry, intact, normal color. Absent: rash Course Vital Signs 08/31/17 19:16 Temperature 96.8 F L Pulse Rate 102 H Respiratory 18 Rate Blood Pressure 155/102 O2 Sat by Pulse 97 Oximetry Medical Decision Making - Medical Decision Making 52-year-old male presents emergency Department chief complaint of suicidal ideation. At this time the patient does not be suffering from any acute medical emergencies. This time the patient is cleared to be evaluated by psychiatry. At this time patient was evaluated and will be admitted for psychiatric care. - Lab Data Lab Results 08/31/17 Range/Units 20:22 Urine Opiates Screen Not Detected (NotDetected) Ur Oxycodone Screen Not Detected (NotDetected) Urine Methadone Screen Not Detected (NotDetected) Ur Propoxyphene Screen Not Detected (NotDetected) Ur Barbiturates Screen Not Detected (NotDetected) U Tricyclic Antidepress Detected H (NotDetected) Ur Phencyclidine Scrn Not Detected (NotDetected) Ur Amphetamines Screen Not Detected (NotDetected) U Methamphetamines Scrn Not Detected (NotDetected) U Benzodiazepines Scrn Not Detected (NotDetected) Urine Cocaine Screen Not Detected (NotDetected) U Marijuana (THC) Screen Not Detected (NotDetected) Disposition Clinical Impression: Alcohol dependence, Major depression Disposition: TRANSFER TO PSYCH HOSP/UNIT Referrals: Kermit Partida MD [Primary Care Provider] - 1-2 days
[2017-09-01] MEDS ORDERED: IBUPROFEN 600 MG TAB PO STA (02:38)
[2017-09-01] MEDS ORDERED: ZIPRASIDONE 20 MG VIAL IM PRN (04:41)
[2017-09-01] MEDS ORDERED: MAG HYDROX/AL HYDROX/SIMETH 30 ML CUP PO PRN (04:41)
[2017-09-01] MEDS ORDERED: LORazepam 1 MG TAB PO PRN (04:41)
[2017-09-01] MEDS ORDERED: ACETAMINOPHEN TAB 325 MG TAB PO PRN (04:41)
[2017-09-01] MEDS ORDERED: MAGNESIUM HYDROXIDE 2,400 MG/10 ML CUP PO PRN (04:41)
[2017-09-01] MEDS: GABAPENTIN 400 MG CAP PO SCH ×3 (08:54→21:36)
--- NOTE | 2017-09-01 13:05 | P.CONS ---
History of Present Illness - Reason for Consult Medical clearance - History of Present Illness She was admitted for suicidal ideations. Patient denied any fever, chills, nausea, vomiting, abdominal pain patient doesn't have any major medical problems patient is bit tachycardic secondary to anxiety. Review of Systems REVIEW OF SYSTEMS: CONSTITUTIONAL: No fever, no malaise, no fatigue. HEENT: No recent visual problems or hearing problems. Denied any sore throat. CARDIOVASCULAR: No chest pain, orthopnea, PND, no palpitations, no syncope. PULMONARY: No shortness of breath, no cough, no hemoptysis. GASTROINTESTINAL: No diarrhea, no nausea, no vomiting, no abdominal pain. Normoactive bowel sounds. NEUROLOGICAL: No headaches, no weakness, no numbness. HEMATOLOGICAL: Denies any bleeding or petechiae. GENITOURINARY: Denies any burning micturition, frequency, or urgency. MUSCULOSKELETAL/RHEUMATOLOGICAL: Denies any joint pain, swelling, or any muscle pain. ENDOCRINE: Denies any polyuria or polydipsia. The rest of the 14-point review of systems is negative. Past Medical History Past Medical History: Hypertension Additional Past Medical History / Comment(s): etoh History of Any Multi-Drug Resistant Organisms: None Reported Past Surgical History: Orthopedic Surgery Additional Past Surgical History / Comment(s): Right knee surgery and salma placed in left femur, 3 surgeries on his eyes. Past Anesthesia/Blood Transfusion Reactions: No Reported Reaction Past Psychological History: Anxiety, Bipolar, Depression, Schizoaffective Disorder Smoking Status: Current every day smoker Past Alcohol Use History: Abuse, Daily, Heavy Past Drug Use History: None Reported - Past Family History Mother Additional Family Medical History / Comment(s): Mother at age 36 from motor vehicle accident. His father is also past but does not know the cause or his age. Patient has 3 brothers that are apparently without major medical problems. Medications and Allergies Home Medications Medication Instructions Recorded Confirmed Type Gabapentin [Neurontin] 800 mg PO TID #52 06/19/17 08/31/17 Rx QUEtiapine [SEROquel] 400 mg PO HS #14 tab 06/19/17 08/31/17 Rx Allergies Allergy/AdvReac Type Severity Reaction Status Date / Time No Known Allergies Allergy Verified 08/31/17 20:18 Physical Exam Vitals: Vital Signs Temp Pulse Pulse Resp BP BP Pulse Ox 09/01/17 05:49 97.8 F 80 16 126/79 95 08/31/17 19:16 96.8 F L 102 H 18 155/102 97 Intake and Output 08/31/17 09/01/17 09/01/17 22:59 06:59 14:59 Other: Weight 72.575 kg 69.5 kg PHYSICAL EXAMINATION: GENERAL: The patient is alert and oriented x3, not in any acute distress. Well developed, well nourished. HEENT: Pupils are round and equally reacting to light. EOMI. No scleral icterus. No conjunctival pallor. Normocephalic, atraumatic. No pharyngeal erythema. No thyromegaly. CARDIOVASCULAR: S1 and S2 present. No murmurs, rubs, or gallops. PULMONARY: Chest is clear to auscultation, no wheezing or crackles. ABDOMEN: Soft, nontender, nondistended, normoactive bowel sounds. No palpable organomegaly. MUSCULOSKELETAL: No joint swelling or deformity. EXTREMITIES: No cyanosis, clubbing, or pedal edema. NEUROLOGICAL: Gross neurological examination did not reveal any focal deficits. SKIN: No rashes. Results Labs: Abnormal Lab Results - Last 24 Hours (Table) 08/31/17 Range/Units 20:22 U Tricyclic Antidepress Detected H (NotDetected) Assessment and Plan Plan: #1 depression and suicidal ideation: Management as per primary service #2 tachycardia: Although patient does not have any other symptoms of alcohol withdrawal patient does have heavy alcohol use history counseling was provided #3 nicotine abuse: Counseling was provided Patient is otherwise clinically doing well and no further recommendations from medicine perspective. Please call us back if needed.
--- NOTE | 2017-09-01 14:42 | P.HP ---
Psychiatric H&P - . H&P Date: 09/01/17 History & Physical: Allergies Allergy/AdvReac Type Severity Reaction Status Date / Time No Known Allergies Allergy Verified 08/31/17 20:18 Vital Signs Temp 97.8 F 09/01/17 05:49 Pulse 80 09/01/17 05:49 Resp 16 09/01/17 05:49 BP 126/79 09/01/17 05:49 Pulse Ox 95 09/01/17 05:49 Intake & Output 08/31/17 09/01/17 09/01/17 18:59 06:59 18:59 Weight 69.5 kg Laboratory Last Values Urine Opiates Screen Not Detected (NotDetected) 08/31/17 20:22 Ur Oxycodone Screen Not Detected (NotDetected) 08/31/17 20:22 Urine Methadone Screen Not Detected (NotDetected) 08/31/17 20:22 Ur Propoxyphene Screen Not Detected (NotDetected) 08/31/17 20:22 Ur Barbiturates Screen Not Detected (NotDetected) 08/31/17 20:22 U Tricyclic Antidepress Detected (NotDetected) H 08/31/17 20:22 Ur Phencyclidine Scrn Not Detected (NotDetected) 08/31/17 20:22 Ur Amphetamines Screen Not Detected (NotDetected) 08/31/17 20:22 U Methamphetamines Scrn Not Detected (NotDetected) 08/31/17 20:22 U Benzodiazepines Scrn Not Detected (NotDetected) 08/31/17 20:22 Urine Cocaine Screen Not Detected (NotDetected) 08/31/17 20:22 U Marijuana (THC) Screen Not Detected (NotDetected) 08/31/17 20:22 09/01/17 14:32 IDENTIFYING DATA: 52-year-old single male patient HPI: patient admitted to the inpatient psychiatric unit [facility] on an involuntary basis with concerns of depression and thoughts of suicide.he relates that he doesn't know what happened. He says "I'm going crazy." He admits to recent depression and says that he was starting to have some thoughts of suicide. Reports that he had a thought of jumping in front of a car. Says he came in on his own and he has been homeless recently, living on the street. Says the most recent place he was living with at the snf. He has been on Neurontin and Seroquel and feels that those work pretty well for him. PAST PSYCHIATRIC HISTORY: he has had multiple inpatient psychiatric hospitalizations, the last in June 2017. Past medications include Effexor , Cogentin, Lexapro, Haldol, Topamax.he thinks he may have been on Zoloft in the past, does not report having any problems with it. Discharge medications from his last admission were Neurontin 800 mg 3 times a day and Seroquel 400 mg at bedtime. His history of diagnoses of major depressive disorder and alcohol use disorder. He has seen Dr. Ravi in the past. He does admit to suicide attempts a couple of times where he jumped in front of a car and then by drinking. PMH:hypertension ALLERGIES: no known ALLERGIES MEDICATIONS: Tylenol when necessary, Maalox when necessary,Neurontin, Ativan when necessary,milk of magnesia when necessary, Seroquel,Geodon when necessary CHEMICAL DEPENDENCY HISTORY: patient states that he has been drinking alcohol lately as much as he can. He says the last day without alcohol he is not sure he has been to [employer] in the past once he does have some interest in going to [place] again. No other drug use. FAMILY PSYCHIATRIC HISTORY: none known at this time. FAMILY CHEMICAL DEPENDENCY HISTORY: per chart history dad with alcoholism. SOCIAL HISTORY: currently homeless. No current relationship. He's never been . He does not have any children. He is not recently working. He says he was on state disability he has been denied for federal disability but is appealing this. MENTAL STATUS EXAM: he is alert and cooperative with the interview. His speech is fluent, not rapid or pressured. Thought processes organized. Mood is depressed. He denies any current thoughts of harm to self or others. No current evidence of psychosis. Is not appears slightly to any interval stimuli. Cognitively appears to be grossly intact. I do not note any significant memory disturbance or disorientation. Insight is adequate, judgment shows evidence of recent impairment. STRENGTHS/WEAKNESSES: strengthsseeking treatment; weaknessescoping skills INTELLECTUAL FUNCTIONING: average IMPRESSIONS: major depressive disorder recurrent; alcohol use disorder PLAN: patient is admitted to the inpatient psychiatric unit [facility] on a voluntary basis. He is agreeable to sign an adult formal voluntary form. He will be placed on SP 15 minute precautions. Baseline laboratory workup will be done the patient and medical custody she'll be ordered. We'll maintain his Neurontin and Seroquel as current. We will be initiating Zoloft 50 motives daily to help with depression. We'll monitor for any medication side effects and continue to monitor regarding any suicidal ideations. Look into the options for substance abuse treatment including inpatient treatment at [place]. We'll continue to cover this patient through the weekend. Estimated length of stay is 3-5 days. Prognosis is guarded.
[2017-09-01] MEDS: QUEtiapine 400 MG TAB PO SCH (21:36)
[2017-09-02 08:25] LABS: Basophils % (A) 1 %; CH 29.2; CHCM 32.5; Eosinophils # (A) 0.2 k/uL (0-0.7); Eosinophils % (A) 3 %; HCT 44.7 % (39.0-53.0); HDW 2.31; HGB 14.4 gm/dL (13.0-17.5); Luc # (Auto) 0.18; Luc % (Auto) 3; Lymphocytes # (A) 2.7 k/uL (1.0-4.8); Lymphocytes % (A) 38 %; MCHC 32.2 g/dL (31.0-37.0); MCV 90.3 fL (80.0-100.0); Mean Platelet Volume 7.3; Monocytes # (A) 0.6 k/uL (0-1.0); Monocytes % (A) 8 %; Neutrophils # (A) 3.4 k/uL (1.3-7.7); Neutrophils % (A) 48 %; RBC 4.95 m/uL (4.30-5.90); WBC 7.1 k/uL (3.8-10.6)
[2017-09-02 08:36] LABS: ALT 21 U/L (21-72); AST 17 U/L (17-59); Alkaline Phosphatase 82 U/L (38-126); Anion Gap 8 mmol/L; Blood Urea Nitrogen 22 mg/dL (9-20); Calcium 9.7 mg/dL (8.4-10.2); Carbon Dioxide 23 mmol/L (22-30); Chloride 109 mmol/L (98-107); Cholesterol 224 mg/dL (<200); Glucose 85 mg/dL (74-99); HDL Cholesterol 44 mg/dL (40-60); Non-African American GFR(MDRD) >60 (>60 ml/min/1.73 sqM); Potassium 4.2 mmol/L (3.5-5.1); Sodium 140 mmol/L (137-145); Total Bilirubin 0.3 mg/dL (0.2-1.3)
[2017-09-02] MEDS: GABAPENTIN 400 MG CAP PO SCH ×3 (09:38→21:18)
[2017-09-02] MEDS: SERTRALINE 50 MG TAB PO SCH (09:38)
--- NOTE | 2017-09-02 17:39 | P.PN ---
Progress Note - Text Progress Note Date: 09/02/17 Interval history: Patient reports that he slept pretty well last night. He seems to be eating well. He does not voice any adverse psychotropic medication side effects. He has started the Zoloft. He describes his mood is maybe a little bit better. He does describe the stress of thinking about going back to the same situations after discharge. Mental status exam: He is alert and cooperative with the interview. His speech is fluent, not rapid or pressured. His mood is some described as a little bit better, affect is restricted. He denies any thoughts of harm to others. He does admit to still some ongoing thoughts of suicide but feels safe here on the unit. He does not show any active evidence of psychosis. He does not show any agitation. Plan: Patient will be maintained on current psychotropic medication regimen. He will be monitored regarding his mood and regarding any suicidal ideations. Dr. Márquez to initiate care this patient starting tomorrow.
[2017-09-02] MEDS: QUEtiapine 400 MG TAB PO SCH (21:18)
[2017-09-03] MEDS: SERTRALINE 50 MG TAB PO SCH (08:53)
[2017-09-03] MEDS: GABAPENTIN 400 MG CAP PO SCH ×3 (08:53→21:45)
[2017-09-03] MEDS: QUEtiapine 400 MG TAB PO SCH (21:45)
--- NOTE | 2017-09-03 22:45 | HP ---
HISTORY AND PHYSICAL ADDENDUM: DATE OF ADMISSION: 09/03/17. CHIEF COMPLAINT: Major depression. HISTORY OF PRESENT ILLNESS: This gentleman was admitted to the psych floor in my absence. He has a history of hypertension and dementia as well as alcoholism and schizophrenia. He has not been seen in the office since October of 2015. The remainder of his history is was obtained at the time of his admission and is otherwise unremarkable. PHYSICAL EXAMINATION: Physical exam also performed at the time of admission. IMPRESSION: 1. Major depression. 2. Alcoholism. 3. History of schizophrenia and bipolar depression. RECOMMENDATIONS: None. MMODL / IJN: [id number] /
--- NOTE | 2017-09-04 02:18 | P.PN ---
Progress Note - Text Progress Note Date: 09/03/17 Interval history: Patient reports that he slept pretty well last night. He seems to be eating well. He does not voice any adverse psychotropic medication side effects. He has started the Zoloft. He describes his mood is maybe a little bit better. He does describe the stress of thinking about going back to the same situations after discharge. Patient initially resistant to discharging tomorrow but after extensive discussion accepts that he needs to participate in his own recovery. Mental status exam: He is alert and cooperative with the interview. His speech is fluent, not rapid or pressured. His mood is some described as a little bit better, affect is restricted. He denies any thoughts of harm to others. He does admit to still some ongoing thoughts of suicide but feels safe here on the unit. He does not show any active evidence of psychosis. He does not show any agitation. Plan: Patient will be maintained on current psychotropic medication regimen. He will be monitored regarding his mood and regarding any suicidal ideations.
[2017-09-04 06:45] VITALS: BP 123/73; PULSE 78; RESP 14; TEMP 98
[2017-09-04] MEDS ORDERED: NALTREXONE HCL 50 MG TAB PO SCH (07:30)
[2017-09-04] MEDS: SERTRALINE 50 MG TAB PO SCH (08:36)
[2017-09-04] MEDS: GABAPENTIN 400 MG CAP PO SCH (08:37)
[2017-09-04 14:30] VITALS: BMI 19.1
== END 2017-09-04 15:40 | disposition home or self-care (01) | DRG 751 ==
LOC: EC 19:12 → 3MHU 09-01 04:39
PROVIDERS: ADMIT Psychiatry & Neurology Psychiatry; ATTEND Psychiatry & Neurology Psychiatry
DX: F33.9 Major depressive disorder, recurrent, unspecified (principal); F03.90 Unspecified dementia, unspecified severity, without behavioral disturbance, psychotic disturbance, mood disturbance, and anxiety; R45.851 Suicidal ideations; F10.20 Alcohol dependence, uncomplicated; F17.200 Nicotine dependence, unspecified, uncomplicated; F25.9 Schizoaffective disorder, unspecified; F41.9 Anxiety disorder, unspecified; I10 Essential (primary) hypertension; Z59.0 Homelessness; Z79.899 Other long term (current) drug therapy
CPT/HCPCS: 80053; 80061; 80306; 82075; 83036; 84443; 85025; 99285

== ENCOUNTER 2017-09-13 17:14 | Emergency (ER) | payer OTHER ==
[2017-09-13 17:33] VITALS: BP 172/81; PULSE 80; RESP 20; TEMP 97.4
--- NOTE | 2017-09-13 17:47 | ED ---
Psych HPI - General Source: patient, RN notes reviewed Mode of arrival: ambulatory Limitations: no limitations <Ángel Klein - Last Filed: 09/13/17 17:49> <Cordell Cervantes - Last Filed: 09/13/17 22:35> - General Chief Complaint: Psychiatric Symptoms Stated Complaint: sucidal Time Seen by Provider: 09/13/17 17:33 - History of Present Illness Initial Comments: Is a 52-year-old male presents emergency Department chief complaint depression, suicidal ideation. Patient states that he has chronic depression. He states he has not been taking his medications as directed. Patient states he did drink some alcohol today. Patient denies any physical complaints. Patient denies any plan to harm himself denies any illicit drug use no homicidal ideation. (Ángel Klein) - Related Data Previous Rx's Medication Instructions Recorded Gabapentin [Neurontin] 800 mg PO TID #52 tablet 09/04/17 Naltrexone HCl [Revia] 50 mg PO W/BRKFST #14 tab 09/04/17 QUEtiapine [SEROquel] 400 mg PO HS #14 tab 09/04/17 Sertraline [Zoloft] 50 mg PO DAILY #14 tab 09/04/17 Allergies Allergy/AdvReac Type Severity Reaction Status Date / Time No Known Allergies Allergy Verified 09/13/17 17:33 Review of Systems ROS Other: All systems not noted in ROS Statement are negative. <Ángel Klein - Last Filed: 09/13/17 17:49> ROS Other: All systems not noted in ROS Statement are negative. <Cordell Cervantes - Last Filed: 09/13/17 22:35> ROS Statement: Those systems with pertinent positive or pertinent negative responses have been documented in the HPI. Past Medical History Past Medical History: Hypertension Additional Past Medical History / Comment(s): etoh History of Any Multi-Drug Resistant Organisms: None Reported Past Surgical History: Orthopedic Surgery Additional Past Surgical History / Comment(s): Right knee surgery and salma placed in left femur, 3 surgeries on his eyes. Past Anesthesia/Blood Transfusion Reactions: No Reported Reaction Past Psychological History: Anxiety, Bipolar, Depression, Schizoaffective Disorder Smoking Status: Current every day smoker Past Alcohol Use History: Daily Past Drug Use History: None Reported - Past Family History Mother Additional Family Medical History / Comment(s): Mother at age 36 from motor vehicle accident. His father is also past but does not know the cause or his age. Patient has 3 brothers that are apparently without major medical problems. <LatoyaÁngel Miguelito - Last Filed: 09/13/17 17:49> General Exam Limitations: no limitations General appearance: alert, in no apparent distress Head exam: Present: atraumatic, normocephalic, normal inspection Eye exam: Present: normal appearance, PERRL, EOMI. Absent: scleral icterus, conjunctival injection, periorbital swelling ENT exam: Present: normal exam, normal oropharynx, mucous membranes moist Neck exam: Present: normal inspection, full ROM. Absent: tenderness, meningismus, lymphadenopathy Respiratory exam: Present: normal lung sounds bilaterally. Absent: respiratory distress, wheezes, rales, rhonchi, stridor Cardiovascular Exam: Present: regular rate, normal rhythm, normal heart sounds. Absent: systolic murmur, diastolic murmur, rubs, gallop, clicks Extremities exam: Present: other (Bilateral knee is full range of motion there are abrasions noted but non-tender.) Neurological exam: Present: alert Psychiatric exam: Present: depressed <Ángel Klein - Last Filed: 09/13/17 17:49> Vital Signs 09/13/17 17:31 Temperature 97.4 F L Pulse Rate 80 Respiratory 20 Rate Blood Pressure 172/81 O2 Sat by Pulse 98 Oximetry Medical Decision Making <Ángel Klein - Last Filed: 09/13/17 17:49> <Cordell Cervantes - Last Filed: 09/13/17 22:35> - Medical Decision Making Patient reevaluated by myself, Dr. Cervantes. Patient resting comfortably in bed. No suicidal ideation at this time. Patient was seen by mental health services who states patient is chronically suicidal. They did discuss the case with the act team as well as the patient's guardian as well as a psychiatrist twice. They do recommend discharge. Patient states he has a prison he can go to. ( Cordell Cervantes) - Lab Data Lab Results 09/13/17 Range/Units 19:10 Urine Opiates Screen Not Detected (NotDetected) Ur Oxycodone Screen Not Detected (NotDetected) Urine Methadone Screen Not Detected (NotDetected) Ur Propoxyphene Screen Not Detected (NotDetected) Ur Barbiturates Screen Not Detected (NotDetected) U Tricyclic Antidepress Detected H (NotDetected) Ur Phencyclidine Scrn Not Detected (NotDetected) Ur Amphetamines Screen Not Detected (NotDetected) U Methamphetamines Scrn Not Detected (NotDetected) U Benzodiazepines Scrn Not Detected (NotDetected) Urine Cocaine Screen Not Detected (NotDetected) U Marijuana (THC) Screen Detected H (NotDetected) Disposition <Ángel Klein - Last Filed: 09/13/17 17:49> <Cordell Cervantes - Last Filed: 09/13/17 22:35> Clinical Impression: Alcohol abuse, Depression Disposition: HOME SELF-CARE Condition: Stable Instructions: Depression (ED), Abuse of Alcohol (ED) Additional Instructions: Discontinue alcohol use. Return for worsening symptoms or other concerns. Please follow-up with your doctor tomorrow. Follow-up with the act team tomorrow Referrals: Kermit Partida MD [Primary Care Provider] - 1-2 days
== END 2017-09-13 23:26 | disposition home or self-care (01) ==
LOC: EEVIPCON 17:14 → EC 17:14
DX: F10.10 Alcohol abuse, uncomplicated (principal); F32.9 Major depressive disorder, single episode, unspecified; R45.851 Suicidal ideations; F17.200 Nicotine dependence, unspecified, uncomplicated
CPT/HCPCS: 80306; 82075; 99284

== ENCOUNTER 2018-03-24 12:41 | Emergency (ER) | payer OTHER ==
[2018-03-24] MEDS ORDERED: KETOROLAC 30 MG/ML 1 ML VIAL IVP STA (12:59)
--- NOTE | 2018-03-24 13:04 | ED ---
Chest Pain HPI - General Stated Complaint: Chest Pain Time Seen by Provider: 03/24/18 12:41 Source: patient, EMS, RN notes reviewed, old records reviewed Mode of arrival: EMS Limitations: no limitations - History of Present Illness Initial Comments: This is a 52-year-old male with a history of depression and alcoholism who currently staying a portable hopes who is brought in by EMS because of chest pain and apparently started last evening. He describes it as sharp achy in nature about 6/10 severity he took 2 nitroglycerin from EMS he took his own aspirin prior no relief she states is actually low but worse describes it more now sharp and throbbing 67/10. He has had a recent cough with some yellow phlegm production no fevers chills or sweats. No known history of heart disease she does have a family history of heart disease. He is a smoker. Additionally he states he showing depressed and suicidal and would like to walk on her telephone of a car he had killed. He has tried this in the past he has a intermittently salma in her left femur apparently has a history of right knee injury from the same. He does admit to drinking alcohol yesterday. MD Complaint: chest pain, other - Related Data Home Medications Medication Instructions Recorded Confirmed Cymbalta 1 cap PO QAM 03/24/18 03/24/18 Previous Rx's Medication Instructions Recorded QUEtiapine [SEROquel] 400 mg PO HS #14 tab 09/04/17 Allergies Allergy/AdvReac Type Severity Reaction Status Date / Time No Known Allergies Allergy Verified 03/24/18 13:01 Review of Systems ROS Statement: Those systems with pertinent positive or pertinent negative responses have been documented in the HPI. ROS Other: All systems not noted in ROS Statement are negative. EKG Findings - EKG Results: EKG: interpreted by WYATT, sinus rhythm (Sinus rhythm rate of 95. Interval 176 QRS duration 60 QT since QTC of 364/457 left exodeviation evidence of old inferior changes) Past Medical History Past Medical History: Hypertension Additional Past Medical History / Comment(s): etoh History of Any Multi-Drug Resistant Organisms: None Reported Past Surgical History: Orthopedic Surgery Additional Past Surgical History / Comment(s): Right knee surgery and salma placed in left femur, 3 surgeries on his eyes. Past Anesthesia/Blood Transfusion Reactions: No Reported Reaction Past Psychological History: Anxiety, Bipolar, Depression, Schizoaffective Disorder Smoking Status: Current every day smoker Past Alcohol Use History: Abuse, Daily, Heavy Past Drug Use History: None Reported - Past Family History Mother Additional Family Medical History / Comment(s): Mother at age 36 from motor vehicle accident. His father is also past but does not know the cause or his age. Patient has 3 brothers that are apparently without major medical problems. General Exam - General Exam Comments Initial Comments: This a well-developed well-nourished awake alert oriented 3 male Limitations: no limitations General appearance: alert, in no apparent distress Head exam: Present: atraumatic, normocephalic, normal inspection Eye exam: Present: normal appearance, PERRL, EOMI. Absent: scleral icterus, conjunctival injection, periorbital swelling ENT exam: Present: normal exam, mucous membranes moist Neck exam: Present: normal inspection. Absent: tenderness, meningismus, lymphadenopathy Respiratory exam: Present: normal lung sounds bilaterally, chest wall tenderness (Reproducible tennis palpation of left costochondral costal sternal margin.). Absent: respiratory distress, wheezes, rales, rhonchi, stridor Cardiovascular Exam: Present: regular rate, normal rhythm, normal heart sounds. Absent: systolic murmur, diastolic murmur, rubs, gallop, clicks GI/Abdominal exam: Present: soft, normal bowel sounds. Absent: distended, tenderness, guarding, rebound, rigid Extremities exam: Present: normal inspection, full ROM, normal capillary refill. Absent: tenderness, pedal edema, joint swelling, calf tenderness Back exam: Present: normal inspection Neurological exam: Present: alert, oriented X3, CN II-XII intact Psychiatric exam: Present: depressed, flat affect, suicidal ideation Skin exam: Present: warm, dry, intact, normal color. Absent: rash Course Vital Signs 03/24/18 03/24/18 03/24/18 12:53 14:02 14:42 Temperature 97.7 F 100.1 F H Pulse Rate 108 H 96 98 Respiratory 18 18 16 Rate Blood Pressure 141/87 156/87 O2 Sat by Pulse 95 94 L 95 Oximetry - Reevaluation(s) Reevaluation #1: 03/24/18 15:52 The patient is a smoker and is well prior to arrival in emergency department this would explain the elevated oral temperature Chest Pain MDM - MDM I did review the imaging and report no acute findings lab work thus far indicates no evidence of cardiopulmonary disease the chest pain was reproducible. Patient was evaluated by psychiatric service and found not to be wrist herself or anyone else he'll be discharged and picked up by the act team. Disposition Clinical Impression: Chest wall pain, Costochondritis, acute, Adjustment disorder, Substance abuse Disposition: HOME SELF-CARE Condition: Good Instructions: Costochondritis (ED), Mood Disorders (ED), Polysubstance Abuse ( ED), Abuse of Alcohol (ED) Is patient prescribed a controlled substance at d/c from ED?: No Referrals: None,Stated [Primary Care Provider] - 1-2 days
[2018-03-24 13:50] LABS: Basophils % (A) 0 %; Eosinophils # (A) 0.2 k/uL (0-0.7); Eosinophils % (A) 2 %; HCT 45.4 % (39.0-53.0); HGB 15.3 gm/dL (13.0-17.5); Lymphocytes # (A) 1.9 k/uL (1.0-4.8); Lymphocytes % (A) 16 %; MCH 29.3 pg (25.0-35.0); MCHC 33.7 g/dL (31.0-37.0); Mean Platelet Volume 6.5; Monocytes # (A) 0.7 k/uL (0-1.0); Monocytes % (A) 6 %; Neutrophils # (A) 8.7 k/uL (1.3-7.7); Neutrophils % (A) 75 %; Platelet Count 362 k/uL (150-450); RBC 5.21 m/uL (4.30-5.90); RDW 14.4 % (11.5-15.5); WBC 11.7 k/uL (3.8-10.6)
[2018-03-24 13:54] LABS: Partial Thromboplastin Time 23.8 sec (22.0-30.0); Prothrombin Time 9.9 sec (9.0-12.0)
--- NOTE | 2018-03-24 13:54 | XR ---
EXAMINATION TYPE: XR chest 2V DATE OF EXAM: 03/24/2018 COMPARISON: 09/15/2017 TECHNIQUE: PA and lateral views submitted. HISTORY: Chest pain FINDINGS: The lungs are clear and there is no pneumothorax, pleural effusion, or focal pneumonia. Chronic def ormity right clavicle stable. No overt failure. Mild hypertrophic change of the spine. Linear changes at the lung bases. IMPRESSION: 1. Subsegmental linear changes at the lung bases. Atelectasis favored over infiltrate correlate clini emy..
[2018-03-24 13:55] LABS: Albumin 4.3 g/dL (3.5-5.0); Alcohol 41 mg/dL; Amylase 103 U/L (30-110); Anion Gap 14 mmol/L; Calcium 9.2 mg/dL (8.4-10.2); Carbon Dioxide 24 mmol/L (22-30); Chloride 102 mmol/L (98-107); Glucose 94 mg/dL (74-99); Lipase 121 U/L (23-300); Sodium 140 mmol/L (137-145); Total Bilirubin 0.5 mg/dL (0.2-1.3); Total Protein 7.2 g/dL (6.3-8.2)
[2018-03-24 14:01] LABS: ALT 26 U/L (21-72); AST 32 U/L (17-59); Alkaline Phosphatase 115 U/L (38-126); Blood Urea Nitrogen 6 mg/dL (9-20); Potassium 4.5 mmol/L (3.5-5.1)
[2018-03-24 14:04] LABS: Creatine Kinase 214 U/L (55-170)
[2018-03-24 14:16] LABS: Appearance,Urine Clear (Clear); Bacteria,Urine Rare /hpf; Bilirubin,Urine Negative (Negative); Blood,Urine Small (Negative); Color,Urine Yellow; Glucose,Urine (UA) Negative (Negative); Ketones,Urine Trace (Negative); Leukocyte Esterase,Urine Small (Negative); Mucus,Urine Rare /hpf; Nitrite,Urine Negative (Negative); PH, Urine 6.5 (5.0-8.0); Protein,Urine 1+ (Negative); RBC,Urine 8 /hpf (0-5); Specific Gravity,Urine 1.011 (1.001-1.035); WBC,Urine 3 /hpf (0-5)
[2018-03-24 14:17] LABS: Creatine Kinase MB 0.8 ng/mL (0.0-2.4); Troponin I <0.012 ng/mL (0.000-0.034)
[2018-03-24 14:27] LABS: Amphetamine Screen,Urine Not Detected (NotDetected); Barbiturate Screen,Urine Not Detected (NotDetected); Benzodiazepines Screen,Urine Detected (NotDetected); Cocaine Screen,Urine Not Detected (NotDetected); Methadone Screen, Urine Not Detected (NotDetected); Opiate Screen,Urine Not Detected (NotDetected); Oxycodone Screen, Urine Not Detected (NotDetected); Phencyclidine Screen,Urine Not Detected (NotDetected); Tricyclic Antidepressant,Urine Detected (NotDetected); Urn Cannabinoid Scrn Detected (NotDetected)
[2018-03-24 16:23] VITALS: BP 152/86; PULSE 92; RESP 18; TEMP 98
== END 2018-03-24 16:30 | disposition home or self-care (01) ==
LOC: EC 12:41
DX: M94.0 Chondrocostal junction syndrome [Tietze] (principal); F43.20 Adjustment disorder, unspecified; F19.10 Other psychoactive substance abuse, uncomplicated; F32.9 Major depressive disorder, single episode, unspecified; R45.851 Suicidal ideations; R05 Cough; F17.200 Nicotine dependence, unspecified, uncomplicated; Z79.899 Other long term (current) drug therapy; Z82.49 Family history of ischemic heart disease and other diseases of the circulatory system
CPT/HCPCS: 99285; 96374; 82075; 36415; 93005; 83880; 80053; 82150; 82550; 82553; 83690; 83735; 84484; 85025; 85610; 85730; 81001; 80306; 80320; 71046; J1885

== ENCOUNTER 2018-03-27 00:16 | Emergency (ER) | payer OTHER ==
[2018-03-27 00:54] VITALS: RESP 18
--- NOTE | 2018-03-27 02:52 | ED ---
Psych HPI <Max Head - Last Filed: 03/27/18 05:54> - General Source: patient Mode of arrival: wheelchair <Tawanna Narvaez - Last Filed: 03/27/18 21:22> - General Chief Complaint: Psychiatric Symptoms Stated Complaint: Mental health Time Seen by Provider: 03/27/18 02:28 - History of Present Illness Initial Comments: 52-year-old male patient presented to the emergency department today for evaluation of suicidal ideation. Patient states that he is sick of living his life. He states that all he does is "drink and feels sorry for myself, drink and feels sorry for myself, and I'm getting sick of it". He states that he is currently homeless, [facility]. States he doesn' t feel like going back to like to be admitted to 3 . Patient states his plan is to jump in front of a car. Patient states he has tried to commit suicide in the past. Denies taking any medications currently. Denies any street drug use. Denies any hallucinations. Patient denies any recent rash, fever, chills, shortness breath, chest pain, abdominal pain, nausea, vomiting, diarrhea, constipation, back pain, numbness, tingling, dizziness, weakness, hematuria, dysuria, urinary urgency, urinary frequency, headache, visual changes, or any other complaints. (Tawanna Narvaez) - Related Data Home Medications Medication Instructions Recorded Confirmed Cymbalta 1 cap PO QAM 03/24/18 03/27/18 Previous Rx's Medication Instructions Recorded QUEtiapine [SEROquel] 400 mg PO HS #14 tab 09/04/17 Allergies Allergy/AdvReac Type Severity Reaction Status Date / Time No Known Allergies Allergy Verified 03/27/18 00:54 Review of Systems ROS Other: All systems not noted in ROS Statement are negative. <Max Head - Last Filed: 03/27/18 05:54> ROS Other: All systems not noted in ROS Statement are negative. <Tawanna Narvaez - Last Filed: 03/27/18 21:22> ROS Statement: Those systems with pertinent positive or pertinent negative responses have been documented in the HPI. Past Medical History Past Medical History: Hypertension Additional Past Medical History / Comment(s): etoh History of Any Multi-Drug Resistant Organisms: None Reported Past Surgical History: Orthopedic Surgery Additional Past Surgical History / Comment(s): Right knee surgery and salma placed in left femur, 3 surgeries on his eyes. Past Anesthesia/Blood Transfusion Reactions: No Reported Reaction Past Psychological History: Anxiety, Bipolar, Depression, Schizoaffective Disorder Smoking Status: Current every day smoker Past Alcohol Use History: Abuse, Daily, Heavy Past Drug Use History: None Reported - Past Family History Mother Additional Family Medical History / Comment(s): Mother at age 36 from motor vehicle accident. His father is also past but does not know the cause or his age. Patient has 3 brothers that are apparently without major medical problems. <Tawanna Narvaez - Last Filed: 03/27/18 21:22> General Exam Limitations: no limitations General appearance: alert, in no apparent distress, appears intoxicated, other ( Physical well-developed, well-nourished adult male patient in no acute distress. Vital signs upon presentation To 97.6F, pulse 100, respirations 18, blood pressure 95/61, pulse ox 94% on room air.) Eye exam: Present: normal appearance, PERRL, EOMI. Absent: scleral icterus, conjunctival injection, periorbital swelling ENT exam: Present: normal exam, normal oropharynx, mucous membranes moist Respiratory exam: Present: normal lung sounds bilaterally. Absent: respiratory distress, wheezes, rales, rhonchi, stridor Cardiovascular Exam: Present: regular rate, normal rhythm, normal heart sounds. Absent: systolic murmur, diastolic murmur, rubs, gallop, clicks GI/Abdominal exam: Present: soft, normal bowel sounds. Absent: distended, tenderness, guarding, rebound, rigid Neurological exam: Present: alert, oriented X3, CN II-XII intact Psychiatric exam: Present: suicidal ideation Skin exam: Present: warm, dry, intact, normal color. Absent: rash <Tawanna Narvaez - Last Filed: 03/27/18 21:22> Vital Signs 03/27/18 03/27/18 00:51 06:15 Temperature 97.6 F 98 F Pulse Rate 100 102 H Respiratory 18 18 Rate Blood Pressure 95/61 90/51 O2 Sat by Pulse 94 L 98 Oximetry Medical Decision Making <Max Head - Last Filed: 03/27/18 05:54> <Tawanna Narvaez - Last Filed: 03/27/18 21:22> - Medical Decision Making 52-year-old male patient presented to the emergency department today for evaluation of suicidal ideation. Patient was intoxicated upon arrival. Patient was seen and evaluated by emergency psychiatric services. She does have to call the psychiatrist for recommendations. At this time care will be handed over to my attending Dr. Head will manage patient until disposition. (Tawanna Narvaez) - Lab Data Lab Results 03/27/18 Range/Units 02:30 Urine Opiates Screen Not Detected (NotDetected) Ur Oxycodone Screen Not Detected (NotDetected) Urine Methadone Screen Not Detected (NotDetected) Ur Propoxyphene Screen Not Detected (NotDetected) Ur Barbiturates Screen Not Detected (NotDetected) U Tricyclic Antidepress Detected H (NotDetected) Ur Phencyclidine Scrn Not Detected (NotDetected) Ur Amphetamines Screen Not Detected (NotDetected) U Methamphetamines Scrn Not Detected (NotDetected) U Benzodiazepines Scrn Not Detected (NotDetected) Urine Cocaine Screen Not Detected (NotDetected) U Marijuana (THC) Screen Not Detected (NotDetected) Disposition Is patient prescribed a controlled substance at d/c from ED?: No <Max Head - Last Filed: 03/27/18 05:54> Is patient prescribed a controlled substance at d/c from ED?: No <Tawanna Narvaez - Last Filed: 03/27/18 21:22> Clinical Impression: Alcohol intoxication, Mood disorder Disposition: HOME SELF-CARE Condition: Good Instructions: Alcohol Intoxication (ED) Referrals: Kermit Partida MD [Primary Care Provider] - 1-2 days
[2018-03-27 03:09] LABS: Amphetamine Screen,Urine Not Detected (NotDetected); Barbiturate Screen,Urine Not Detected (NotDetected); Benzodiazepines Screen,Urine Not Detected (NotDetected); Cocaine Screen,Urine Not Detected (NotDetected); Methadone Screen, Urine Not Detected (NotDetected); Opiate Screen,Urine Not Detected (NotDetected); Oxycodone Screen, Urine Not Detected (NotDetected); Phencyclidine Screen,Urine Not Detected (NotDetected); Tricyclic Antidepressant,Urine Detected (NotDetected); Urn Cannabinoid Scrn Not Detected (NotDetected)
[2018-03-27 06:20] VITALS: BP 90/51; PULSE 102; TEMP 98
== END 2018-03-27 06:15 | disposition home or self-care (01) ==
LOC: EC 00:16
DX: F39 Unspecified mood [affective] disorder (principal); F10.129 Alcohol abuse with intoxication, unspecified; R45.851 Suicidal ideations; F25.9 Schizoaffective disorder, unspecified; F31.9 Bipolar disorder, unspecified; F41.9 Anxiety disorder, unspecified; F17.200 Nicotine dependence, unspecified, uncomplicated; Z79.899 Other long term (current) drug therapy
CPT/HCPCS: 80306; 82075; 99284

== ENCOUNTER 2018-03-29 14:28 | Emergency (ER) | payer OTHER ==
--- NOTE | 2018-03-29 14:43 | ED ---
General Adult HPI - General Chief complaint: Psychiatric Symptoms Stated complaint: ETOH/Suicidal Time Seen by Provider: 03/29/18 14:32 Source: patient, EMS, RN notes reviewed Mode of arrival: EMS Limitations: altered mental status - History of Present Illness Initial comments: Patient is a pleasant 52-year-old male presenting to the emergency Department with alcohol intoxication and depression. Patient has felt suicidal for the past week or so. Patient has thoughts of jumping in front of the car. patient does have a history of similar problems previously. Patient does admit to drinking frequently and drinking alcohol today. No reported street drugs. Patient does at times hear voices however is unable to hear what they're saying. No homicidal thoughts. No physical complaints. - Related Data Home Medications Medication Instructions Recorded Confirmed DULoxetine HCL [Cymbalta] 40 mg PO DAILY 03/29/18 03/29/18 QUEtiapine [SEROquel] 400 mg PO HS 03/29/18 03/29/18 Allergies Allergy/AdvReac Type Severity Reaction Status Date / Time No Known Allergies Allergy Verified 03/27/18 00:54 Review of Systems ROS Statement: Those systems with pertinent positive or pertinent negative responses have been documented in the HPI. ROS Other: All systems not noted in ROS Statement are negative. Constitutional: Denies: fever Eyes: Denies: eye pain ENT: Denies: ear pain Respiratory: Denies: cough Cardiovascular: Denies: chest pain Endocrine: Denies: fatigue Gastrointestinal: Denies: abdominal pain Genitourinary: Denies: dysuria Musculoskeletal: Denies: back pain Skin: Denies: rash Neurological: Denies: headache Psychiatric: Reports: depression, suicidal thoughts Past Medical History Past Medical History: Hypertension Additional Past Medical History / Comment(s): etoh History of Any Multi-Drug Resistant Organisms: None Reported Past Surgical History: Orthopedic Surgery Additional Past Surgical History / Comment(s): Right knee surgery and salma placed in left femur, 3 surgeries on his eyes. Past Anesthesia/Blood Transfusion Reactions: No Reported Reaction Past Psychological History: Anxiety, Bipolar, Depression, Schizoaffective Disorder Smoking Status: Current every day smoker Past Alcohol Use History: Abuse, Daily, Heavy Past Drug Use History: None Reported - Past Family History Mother Additional Family Medical History / Comment(s): Mother at age 36 from motor vehicle accident. His father is also past but does not know the cause or his age. Patient has 3 brothers that are apparently without major medical problems. General Exam Limitations: altered mental status General appearance: alert, in no apparent distress Head exam: Present: atraumatic Eye exam: Present: normal appearance, PERRL ENT exam: Present: normal oropharynx Neck exam: Present: normal inspection Respiratory exam: Present: normal lung sounds bilaterally Cardiovascular Exam: Present: regular rate, normal rhythm GI/Abdominal exam: Present: soft. Absent: tenderness Extremities exam: Present: normal inspection Neurological exam: Present: alert Psychiatric exam: Present: depressed Skin exam: Present: normal color Course Vital Signs 03/29/18 14:31 Temperature 99.1 F Pulse Rate 109 H Respiratory 18 Rate Blood Pressure 135/84 O2 Sat by Pulse 92 L Oximetry Medical Decision Making - Medical Decision Making Patient was seen by mental health services with plan for discharge. Patient meet with act team in the morning. Patient reevaluated and denies suicidal ideation. Patient does contract for safety. - Lab Data Lab Results 03/29/18 Range/Units 14:43 Urine Opiates Screen Not Detected (NotDetected) Ur Oxycodone Screen Not Detected (NotDetected) Urine Methadone Screen Not Detected (NotDetected) Ur Propoxyphene Screen Not Detected (NotDetected) Ur Barbiturates Screen Not Detected (NotDetected) U Tricyclic Antidepress Detected H (NotDetected) Ur Phencyclidine Scrn Not Detected (NotDetected) Ur Amphetamines Screen Not Detected (NotDetected) U Methamphetamines Scrn Not Detected (NotDetected) U Benzodiazepines Scrn Not Detected (NotDetected) Urine Cocaine Screen Not Detected (NotDetected) U Marijuana (THC) Screen Not Detected (NotDetected) Disposition Clinical Impression: Alcohol abuse, Intoxication, Bipolar disorder Disposition: HOME SELF-CARE Condition: Stable Instructions: Depression (ED), Abuse of Alcohol (ED) Additional Instructions: Discontinue alcohol use. Follow-up with act team as planned at 9:30 in the morning. Follow up with her primary care physician being the week. Return for thoughts of self-harm, worsening symptoms or other concerns. Is patient prescribed a controlled substance at d/c from ED?: No Referrals: Kermit Partida MD [Primary Care Provider] - 1-2 days Time of Disposition: 20:40
[2018-03-29 15:08] LABS: Amphetamine Screen,Urine Not Detected (NotDetected); Barbiturate Screen,Urine Not Detected (NotDetected); Benzodiazepines Screen,Urine Not Detected (NotDetected); Cocaine Screen,Urine Not Detected (NotDetected); Methadone Screen, Urine Not Detected (NotDetected); Opiate Screen,Urine Not Detected (NotDetected); Oxycodone Screen, Urine Not Detected (NotDetected); Phencyclidine Screen,Urine Not Detected (NotDetected); Tricyclic Antidepressant,Urine Detected (NotDetected); Urn Cannabinoid Scrn Not Detected (NotDetected)
[2018-03-29 20:59] VITALS: BP 114/70; PULSE 80; RESP 16; TEMP 98.5
== END 2018-03-29 21:02 | disposition home or self-care (01) ==
LOC: EC 14:28
DX: F10.120 Alcohol abuse with intoxication, uncomplicated (principal); F25.0 Schizoaffective disorder, bipolar type; F41.9 Anxiety disorder, unspecified; F25.1 Schizoaffective disorder, depressive type; F17.200 Nicotine dependence, unspecified, uncomplicated; Z79.899 Other long term (current) drug therapy
CPT/HCPCS: 80306; 82075; 99285

== ENCOUNTER 2018-03-30 19:37 | Emergency (ER) | payer OTHER ==
--- NOTE | 2018-03-30 20:18 | ED ---
General Adult HPI - General Stated complaint: Fall Time Seen by Provider: 03/30/18 19:37 Source: patient, EMS, RN notes reviewed Mode of arrival: EMS Limitations: no limitations - History of Present Illness Initial comments: This a 52-year-old male presents from chief complaint of trip and fall. Patient states she's been drinking alcohol today states is bleeding when these and fell striking his chest and right knee. Patient has had a history of right knee problems. Denies any head injury, neck pain, back pain. Patient was hematuria after his fall. Patient states he called EMS because of his right knee and fall. Patient denies any loss conscious denies any nausea and diarrhea constipation. Patient chronically drinks alcohol. Patient has had several ER visits last few days for similar complaints. Patient reports after triage and exam that he is now suicidal because he has no place to go. - Related Data Home Medications Medication Instructions Recorded Confirmed DULoxetine HCL [Cymbalta] 40 mg PO DAILY 03/29/18 03/29/18 QUEtiapine [SEROquel] 400 mg PO HS 03/29/18 03/29/18 Allergies Allergy/AdvReac Type Severity Reaction Status Date / Time No Known Allergies Allergy Verified 03/27/18 00:54 Review of Systems ROS Statement: Those systems with pertinent positive or pertinent negative responses have been documented in the HPI. ROS Other: All systems not noted in ROS Statement are negative. Past Medical History Past Medical History: Hypertension Additional Past Medical History / Comment(s): etoh History of Any Multi-Drug Resistant Organisms: None Reported Past Surgical History: Orthopedic Surgery Additional Past Surgical History / Comment(s): Right knee surgery and salma placed in left femur, 3 surgeries on his eyes. Past Anesthesia/Blood Transfusion Reactions: No Reported Reaction Past Psychological History: Anxiety, Bipolar, Depression, Schizoaffective Disorder Smoking Status: Current every day smoker Past Alcohol Use History: Abuse, Daily, Heavy Past Drug Use History: None Reported - Past Family History Mother Additional Family Medical History / Comment(s): Mother at age 36 from motor vehicle accident. His father is also past but does not know the cause or his age. Patient has 3 brothers that are apparently without major medical problems. General Exam Limitations: no limitations General appearance: alert, in no apparent distress Head exam: Present: atraumatic, normocephalic, normal inspection Eye exam: Present: normal appearance, PERRL, EOMI. Absent: scleral icterus, conjunctival injection, periorbital swelling ENT exam: Present: normal exam, normal oropharynx, mucous membranes moist Neck exam: Present: normal inspection, full ROM. Absent: tenderness, meningismus, lymphadenopathy Respiratory exam: Present: normal lung sounds bilaterally, chest wall tenderness. Absent: respiratory distress, wheezes, rales, rhonchi, stridor Cardiovascular Exam: Present: regular rate, normal rhythm, normal heart sounds. Absent: systolic murmur, diastolic murmur, rubs, gallop, clicks GI/Abdominal exam: Present: soft, normal bowel sounds. Absent: distended, tenderness, guarding, rebound, rigid Extremities exam: Present: other (Right knee old surgical scar noted, small abrasion full range of motion minimally tender) Back exam: Absent: CVA tenderness (R), CVA tenderness (L) Neurological exam: Present: alert, oriented X3, CN II-XII intact Skin exam: Present: warm, dry, intact, normal color. Absent: rash Course Vital Signs 03/30/18 03/30/18 03/30/18 19:39 21:41 22:05 Temperature 98.4 F Pulse Rate 101 H 108 H Respiratory 18 16 16 Rate Blood Pressure 171/102 150/84 O2 Sat by Pulse 95 94 L Oximetry Medical Decision Making - Medical Decision Making 52-year-old male present emergency from via EMS for a fall. Patient x-rays of his knee and chest after injury which show no acute abnormality. Patient proceeded states he was suicidal. Patient was evaluated by EPS and patient is safe for discharge patient states that he is not suicidal after being sober. - Lab Data Lab Results 03/30/18 Range/Units Unknown Urine Opiates Screen Not Detected (NotDetected) Ur Oxycodone Screen Not Detected (NotDetected) Urine Methadone Screen Not Detected (NotDetected) Ur Propoxyphene Screen Not Detected (NotDetected) Ur Barbiturates Screen Not Detected (NotDetected) U Tricyclic Antidepress Detected H (NotDetected) Ur Phencyclidine Scrn Not Detected (NotDetected) Ur Amphetamines Screen Not Detected (NotDetected) U Methamphetamines Scrn Not Detected (NotDetected) U Benzodiazepines Scrn Not Detected (NotDetected) Urine Cocaine Screen Not Detected (NotDetected) U Marijuana (THC) Screen Not Detected (NotDetected) Disposition Clinical Impression: Alcohol abuse, Alcohol intoxication, Knee contusion Disposition: HOME SELF-CARE Condition: Stable Instructions: Abuse of Alcohol (ED) Additional Instructions: Please return to the Emergency Department if symptoms worsen or any other concerns. Is patient prescribed a controlled substance at d/c from ED?: No Referrals: Kermit Partida MD [Primary Care Provider] - 1-2 days Time of Disposition: 01:12
--- NOTE | 2018-03-30 20:43 | XR ---
EXAMINATION TYPE: XR chest 2V DATE OF EXAM: 03/30/2018 COMPARISON: 03/24/2018 HISTORY: Chest pain TECHNIQUE: Frontal and lateral views of the chest are obtained. FINDINGS: Heart and mediastinum are normal. Lungs are clear of infiltrate. There is no heart failure . There are no hilar masses. Costophrenic angles are clear. Bony thorax is intact IMPRESSION: Normal chest. No change.
--- NOTE | 2018-03-30 20:44 | XR ---
EXAMINATION TYPE: XR knee complete RT DATE OF EXAM: 03/30/2018 COMPARISON: 02/05/2014 HISTORY: Knee pain. Fall. TECHNIQUE: 3 views FINDINGS: There are jacey in the lateral femoral and tibial condyles. I see no fracture nor disloca tion. There is no sign of joint effusion. Joint spaces are fairly normal. IMPRESSION: Previous surgery. No acute abnormality of the right knee. Old ligamentous injury. No andrade ge compared to old exam.
[2018-03-30 21:01] LABS: Amphetamine Screen,Urine Not Detected (NotDetected); Barbiturate Screen,Urine Not Detected (NotDetected); Benzodiazepines Screen,Urine Not Detected (NotDetected); Cocaine Screen,Urine Not Detected (NotDetected); Methadone Screen, Urine Not Detected (NotDetected); Opiate Screen,Urine Not Detected (NotDetected); Oxycodone Screen, Urine Not Detected (NotDetected); Phencyclidine Screen,Urine Not Detected (NotDetected); Tricyclic Antidepressant,Urine Detected (NotDetected); Urn Cannabinoid Scrn Not Detected (NotDetected)
[2018-03-31] MEDS ORDERED: ONDANSETRON ODT 4 MG TAB PO STA (01:03)
[2018-03-31 01:14] VITALS: BP 154/94; PULSE 109; RESP 18; TEMP 99.7
== END 2018-03-31 01:22 | disposition home or self-care (01) ==
LOC: EC 19:37
DX: S80.01XA Contusion of right knee, initial encounter (principal); F10.129 Alcohol abuse with intoxication, unspecified; S29.9XXA Unspecified injury of thorax, initial encounter; F31.9 Bipolar disorder, unspecified; F41.9 Anxiety disorder, unspecified; F17.200 Nicotine dependence, unspecified, uncomplicated; Z79.899 Other long term (current) drug therapy; Z98.890 Other specified postprocedural states; W01.0XXA Fall on same level from slipping, tripping and stumbling without subsequent striking against object, initial encounter; Y92.89 Other specified places as the place of occurrence of the external cause
CPT/HCPCS: 71046; 80306; 82075; 99284

== ENCOUNTER 2018-04-02 23:00 | Emergency (ER) | payer OTHER ==
[2018-04-02] MEDS ORDERED: LORazepam 2 MG/ML INJ IV STA (23:02)
--- NOTE | 2018-04-02 23:07 | ED ---
General Adult HPI - General Stated complaint: Fall-ETOH Time Seen by Provider: 04/02/18 23:02 Source: RN notes reviewed, old records reviewed - History of Present Illness Initial comments: This is a 52-year-old male the ER for evaluation. Patient presents today for evaluation of fall. Patient multiple this hospital for mental health alcoholism and falls. Patient did call EMS himself after having a fall. Patient states his headache back pain. Patient has no neurological complaints. Able to move all extremities without difficulty. Patient is awake and alert, does admit to alcohol intoxication again tonight - Related Data Home Medications Medication Instructions Recorded Confirmed DULoxetine HCL [Cymbalta] 40 mg PO DAILY 03/29/18 04/02/18 QUEtiapine [SEROquel] 400 mg PO HS 03/29/18 04/02/18 Allergies Allergy/AdvReac Type Severity Reaction Status Date / Time No Known Allergies Allergy Verified 04/03/18 23:27 Review of Systems ROS Statement: Those systems with pertinent positive or pertinent negative responses have been documented in the HPI. ROS Other: All systems not noted in ROS Statement are negative. Past Medical History Past Medical History: Hypertension Additional Past Medical History / Comment(s): etoh History of Any Multi-Drug Resistant Organisms: None Reported Past Surgical History: Orthopedic Surgery Additional Past Surgical History / Comment(s): Right knee surgery and salma placed in left femur, 3 surgeries on his eyes. Past Anesthesia/Blood Transfusion Reactions: No Reported Reaction Past Psychological History: Anxiety, Bipolar, Depression, Schizoaffective Disorder Smoking Status: Current every day smoker Past Alcohol Use History: Abuse, Daily, Heavy Past Drug Use History: None Reported - Past Family History Mother Additional Family Medical History / Comment(s): Mother at age 36 from motor vehicle accident. His father is also past but does not know the cause or his age. Patient has 3 brothers that are apparently without major medical problems. General Exam General appearance: alert, in no apparent distress Head exam: Present: atraumatic, normocephalic, normal inspection Eye exam: Present: normal appearance, PERRL, EOMI. Absent: scleral icterus, conjunctival injection, periorbital swelling ENT exam: Present: normal exam, mucous membranes moist Neck exam: Present: normal inspection. Absent: tenderness, meningismus, lymphadenopathy Respiratory exam: Present: normal lung sounds bilaterally. Absent: respiratory distress, wheezes, rales, rhonchi, stridor Cardiovascular Exam: Present: regular rate, normal rhythm, normal heart sounds. Absent: systolic murmur, diastolic murmur, rubs, gallop, clicks GI/Abdominal exam: Present: soft, normal bowel sounds. Absent: distended, tenderness, guarding, rebound, rigid Extremities exam: Present: normal inspection, full ROM, normal capillary refill. Absent: tenderness, pedal edema, joint swelling, calf tenderness Back exam: Present: normal inspection Neurological exam: Present: alert, oriented X3, CN II-XII intact Psychiatric exam: Present: normal affect, normal mood Skin exam: Present: warm, dry, intact, normal color. Absent: rash Course Vital Signs 04/02/18 04/03/18 23:00 03:07 Temperature 97.7 F 97.2 F L Pulse Rate 71 102 H Respiratory 16 16 Rate Blood Pressure 158/93 153/92 O2 Sat by Pulse 97 94 L Oximetry Medical Decision Making - Medical Decision Making 52 male this facility patient presents ER for evaluation of fall. Patient is no injury. Patient will be discharged home - Lab Data Lab Results 04/03/18 Range/Units 00:17 Urine Opiates Screen Not Detected (NotDetected) Ur Oxycodone Screen Not Detected (NotDetected) Urine Methadone Screen Not Detected (NotDetected) Ur Propoxyphene Screen Not Detected (NotDetected) Ur Barbiturates Screen Not Detected (NotDetected) U Tricyclic Antidepress Not Detected (NotDetected) Ur Phencyclidine Scrn Not Detected (NotDetected) Ur Amphetamines Screen Not Detected (NotDetected) U Methamphetamines Scrn Not Detected (NotDetected) U Benzodiazepines Scrn Not Detected (NotDetected) Urine Cocaine Screen Not Detected (NotDetected) U Marijuana (THC) Screen Not Detected (NotDetected) - Radiology Data Radiology results: report reviewed (CT brain C-spine x-ray chest and pelvis negative for traumatic injury), image reviewed Disposition Clinical Impression: Alcohol dependence, continuous, Alcohol abuse Disposition: HOME SELF-CARE Instructions: Alcohol Use Disorder (ED) Additional Instructions: Please follow-up with [facility], the ACT team and your public guardian later this morning. Is patient prescribed a controlled substance at d/c from ED?: No Referrals: Kermit Partida MD [Primary Care Provider] - 1-2 days
[2018-04-02 23:19] VITALS: RESP 16
[2018-04-03] MEDS ORDERED: LORazepam 2 MG/ML INJ IM STA (00:22)
[2018-04-03 00:41] LABS: Amphetamine Screen,Urine Not Detected (NotDetected); Barbiturate Screen,Urine Not Detected (NotDetected); Benzodiazepines Screen,Urine Not Detected (NotDetected); Cocaine Screen,Urine Not Detected (NotDetected); Methadone Screen, Urine Not Detected (NotDetected); Opiate Screen,Urine Not Detected (NotDetected); Oxycodone Screen, Urine Not Detected (NotDetected); Phencyclidine Screen,Urine Not Detected (NotDetected); Tricyclic Antidepressant,Urine Not Detected (NotDetected); Urn Cannabinoid Scrn Not Detected (NotDetected)
--- NOTE | 2018-04-03 00:56 | CT ---
EXAMINATION TYPE: CT brain [facility] [place] DATE OF EXAM: 04/03/2018 COMPARISON: July 16, 2017 HISTORY: fall CT DLP: 1618.10 mGycm Automated exposure control for dose reduction was used. TECHNIQUE: CT scan of the head and cervical spine are performed without contrast. FINDINGS: There is some enlargement of the ventricles. There is no mass effect nor midline shift. T here is no sign of intracranial hemorrhage. There is 1.7 cm subcutaneous cystic area anterior to the right zygoma. There is mild cerebral atrophy. There is marked thinning of the corpus callosum. There is apparent old anterior fusion surgery from C4 to C7. There is moderate anterior spurring at C 7-T1 disc space. The posterior elements are intact. There is no evidence of a compression fracture. T he skull base appears intact. IMPRESSION: Hydrocephalus. Cerebral atrophy. No acute intracranial abnormality. No change. Multilevel fusion surgery. Spondylotic changes. No fracture. No change.
--- NOTE | 2018-04-03 01:35 | XR ---
EXAMINATION TYPE: XR pelvis AP view DATE OF EXAM: 04/03/2018 COMPARISON: NONE HISTORY: Pain TECHNIQUE: Single view FINDINGS: The pelvic ring is intact. There is intramedullary salma in the left femur. Proximal femurs a nd hip joints are intact. Sacroiliac joints are normal. IMPRESSION: No acute abnormality of the pelvis. Normal hip joint spaces.
--- NOTE | 2018-04-03 01:35 | XR ---
EXAMINATION TYPE: XR lumbar spine 2 or 3V DATE OF EXAM: 04/03/2018 COMPARISON: NONE HISTORY: Back pain TECHNIQUE: 3 views FINDINGS: The lumbar vertebra have normal alignment. Posterior element are intact. Disc spaces are fa irly normal. There is minor spurring of the endplates. Sacroiliac joints appear intact. IMPRESSION: Negative lumbar spine exam. No fracture.
--- NOTE | 2018-04-03 01:36 | XR ---
EXAMINATION TYPE: XR chest 1V DATE OF EXAM: 04/03/2018 COMPARISON: 03/30/2018 HISTORY: Chest pain TECHNIQUE: Single frontal view of the chest is obtained. FINDINGS: There is no heart failure nor confluent pneumonic infiltrate. Costophrenic angles are nicole r. Heart size is normal. Bony thorax is intact. There is deformity of the right AC joint consistent w ith old injury. IMPRESSION: No active cardiopulmonary disease. Normal heart. No change.
[2018-04-03 03:12] VITALS: BP 153/92; PULSE 102; TEMP 97.2
== END 2018-04-03 03:15 | disposition home or self-care (01) ==
LOC: EC 23:00
DX: F10.229 Alcohol dependence with intoxication, unspecified (principal); R51 Headache; M54.9 Dorsalgia, unspecified; R29.6 Repeated falls; F31.9 Bipolar disorder, unspecified; F41.9 Anxiety disorder, unspecified; F17.200 Nicotine dependence, unspecified, uncomplicated; Z79.899 Other long term (current) drug therapy; Z53.8 Procedure and treatment not carried out for other reasons; W19.XXXA Unspecified fall, initial encounter; Y92.009 Unspecified place in unspecified non-institutional (private) residence as the place of occurrence of the external cause
CPT/HCPCS: 82075; 80306; 72100; 72170; 71045; 72125; 70450; 99285; 96372; J2060

== ENCOUNTER 2018-04-03 05:01 | Emergency (ER) | payer OTHER ==
--- NOTE | 2018-04-03 06:51 | ED ---
General Adult HPI - General Chief complaint: Skin/Abscess/Foreign Body Stated complaint: boil on face Time Seen by Provider: 04/03/18 05:51 Source: patient, RN notes reviewed, old records reviewed Mode of arrival: ambulatory Limitations: no limitations - History of Present Illness Initial comments: This is a 32-year-old male the ER for evaluation. This patient's second ER evaluation tonight. Is known to be homeless, known alcoholic. Patient is discharged mental health and no further admission was necessary. Patient has no medical history, states that he may have abscess. Patient states he is states something do for the next few hours - Related Data Home Medications Medication Instructions Recorded Confirmed DULoxetine HCL [Cymbalta] 40 mg PO DAILY 03/29/18 04/02/18 QUEtiapine [SEROquel] 400 mg PO HS 03/29/18 04/02/18 Allergies Allergy/AdvReac Type Severity Reaction Status Date / Time No Known Allergies Allergy Verified 04/03/18 05:05 Review of Systems ROS Statement: Those systems with pertinent positive or pertinent negative responses have been documented in the HPI. ROS Other: All systems not noted in ROS Statement are negative. Past Medical History Past Medical History: Hypertension Additional Past Medical History / Comment(s): etoh History of Any Multi-Drug Resistant Organisms: None Reported Past Surgical History: Orthopedic Surgery Additional Past Surgical History / Comment(s): Right knee surgery and salma placed in left femur, 3 surgeries on his eyes. Past Anesthesia/Blood Transfusion Reactions: No Reported Reaction Past Psychological History: Anxiety, Bipolar, Depression, Schizoaffective Disorder Smoking Status: Current every day smoker Past Alcohol Use History: Abuse, Daily, Heavy Past Drug Use History: None Reported - Past Family History Mother Additional Family Medical History / Comment(s): Mother at age 36 from motor vehicle accident. His father is also past but does not know the cause or his age. Patient has 3 brothers that are apparently without major medical problems. General Exam Limitations: no limitations General appearance: alert, in no apparent distress Head exam: Present: atraumatic, normocephalic, normal inspection Eye exam: Present: normal appearance, PERRL, EOMI. Absent: scleral icterus, conjunctival injection, periorbital swelling ENT exam: Present: normal exam, mucous membranes moist Neck exam: Present: normal inspection. Absent: tenderness, meningismus, lymphadenopathy Respiratory exam: Present: normal lung sounds bilaterally. Absent: respiratory distress, wheezes, rales, rhonchi, stridor Cardiovascular Exam: Present: regular rate, normal rhythm, normal heart sounds. Absent: systolic murmur, diastolic murmur, rubs, gallop, clicks GI/Abdominal exam: Present: soft, normal bowel sounds. Absent: distended, tenderness, guarding, rebound, rigid Extremities exam: Present: normal inspection, full ROM, normal capillary refill. Absent: tenderness, pedal edema, joint swelling, calf tenderness Back exam: Present: normal inspection Neurological exam: Present: alert, oriented X3, CN II-XII intact Psychiatric exam: Present: normal affect, normal mood Skin exam: Present: warm, dry, intact, normal color. Absent: rash Course Vital Signs 04/03/18 05:03 Temperature 98.2 F Pulse Rate 100 Respiratory 18 Rate Blood Pressure 148/92 O2 Sat by Pulse 96 Oximetry Medical Decision Making - Medical Decision Making 52 male the ER for evaluation. Patient's to be discharged home Disposition Clinical Impression: Alcohol abuse Disposition: HOME SELF-CARE Condition: Good Instructions: Abuse of Alcohol (ED) Is patient prescribed a controlled substance at d/c from ED?: No Referrals: Kermit Partida MD [Primary Care Provider] - 1-2 days
[2018-04-03 07:10] VITALS: BP 154/98; PULSE 89; RESP 17; TEMP 98.8
== END 2018-04-03 07:12 | disposition home or self-care (01) ==
LOC: EC 05:01
DX: F10.10 Alcohol abuse, uncomplicated (principal); F41.9 Anxiety disorder, unspecified; F31.9 Bipolar disorder, unspecified; F25.9 Schizoaffective disorder, unspecified; F17.200 Nicotine dependence, unspecified, uncomplicated; Z59.0 Homelessness; Z79.899 Other long term (current) drug therapy
CPT/HCPCS: 99283

== ENCOUNTER 2018-04-03 23:15 | Emergency (ER) | payer OTHER ==
--- NOTE | 2018-04-03 23:39 | ED ---
General Adult HPI - General Chief complaint: Psychiatric Symptoms Stated complaint: Chest pain Time Seen by Provider: 04/03/18 23:23 Source: EMS, RN notes reviewed, old records reviewed Mode of arrival: EMS Limitations: no limitations - History of Present Illness Initial comments: This is a 52-year-old male the ER for evaluation based coming in for recurrent psychiatric evaluation. Patient as well as this emergency room and myself with reviewed the ER in the last 24 hours. Patient states he does not feel well he just feels like something is wrong, he is depressed. - Related Data Home Medications Medication Instructions Recorded Confirmed DULoxetine HCL [Cymbalta] 40 mg PO DAILY 03/29/18 04/02/18 QUEtiapine [SEROquel] 400 mg PO HS 03/29/18 04/02/18 Allergies Allergy/AdvReac Type Severity Reaction Status Date / Time No Known Allergies Allergy Verified 04/03/18 23:27 Review of Systems ROS Statement: Those systems with pertinent positive or pertinent negative responses have been documented in the HPI. ROS Other: All systems not noted in ROS Statement are negative. Past Medical History Past Medical History: Hypertension Additional Past Medical History / Comment(s): etoh History of Any Multi-Drug Resistant Organisms: None Reported Past Surgical History: Orthopedic Surgery Additional Past Surgical History / Comment(s): Right knee surgery and salma placed in left femur, 3 surgeries on his eyes. Past Anesthesia/Blood Transfusion Reactions: No Reported Reaction Past Psychological History: Anxiety, Bipolar, Depression, Schizoaffective Disorder Smoking Status: Current every day smoker Past Alcohol Use History: Abuse, Daily, Heavy Past Drug Use History: None Reported - Past Family History Mother Additional Family Medical History / Comment(s): Mother at age 36 from motor vehicle accident. His father is also past but does not know the cause or his age. Patient has 3 brothers that are apparently without major medical problems. General Exam Limitations: no limitations General appearance: alert, in no apparent distress Head exam: Present: atraumatic, normocephalic, normal inspection Eye exam: Present: normal appearance, PERRL, EOMI. Absent: scleral icterus, conjunctival injection, periorbital swelling ENT exam: Present: normal exam, mucous membranes moist Neck exam: Present: normal inspection. Absent: tenderness, meningismus, lymphadenopathy Respiratory exam: Present: normal lung sounds bilaterally. Absent: respiratory distress, wheezes, rales, rhonchi, stridor Cardiovascular Exam: Present: regular rate, normal rhythm, normal heart sounds. Absent: systolic murmur, diastolic murmur, rubs, gallop, clicks GI/Abdominal exam: Present: soft, normal bowel sounds. Absent: distended, tenderness, guarding, rebound, rigid Extremities exam: Present: normal inspection, full ROM, normal capillary refill. Absent: tenderness, pedal edema, joint swelling, calf tenderness Back exam: Present: normal inspection Neurological exam: Present: alert, oriented X3, CN II-XII intact Psychiatric exam: Present: normal affect, normal mood Skin exam: Present: warm, dry, intact, normal color. Absent: rash Course Vital Signs 04/03/18 04/04/18 23:24 01:11 Temperature 98.8 F Pulse Rate 87 85 Respiratory 18 20 Rate Blood Pressure 141/85 117/64 O2 Sat by Pulse 97 97 Oximetry - Reevaluation(s) Reevaluation #1: 04/04/18 01:45 Patient medically clear for psychiatric evaluation Medical Decision Making - Medical Decision Making 52 male the ER for evaluation, patient seen evaluated with psychiatry. Patient can be discharged home Disposition Clinical Impression: Alcohol abuse Disposition: HOME SELF-CARE Condition: Good Instructions: Alcohol Use Disorder (ED) Is patient prescribed a controlled substance at d/c from ED?: No Referrals: Kermit Partida MD [Primary Care Provider] - 1-2 days
[2018-04-04 01:12] VITALS: RESP 20
[2018-04-04 06:58] VITALS: BP 147/85; PULSE 107; TEMP 97.8
== END 2018-04-04 06:58 | disposition home or self-care (01) ==
LOC: EC 23:15
DX: F10.10 Alcohol abuse, uncomplicated (principal); R07.9 Chest pain, unspecified; F41.9 Anxiety disorder, unspecified; F25.1 Schizoaffective disorder, depressive type; F25.0 Schizoaffective disorder, bipolar type; F17.200 Nicotine dependence, unspecified, uncomplicated; Z79.899 Other long term (current) drug therapy
CPT/HCPCS: 82075; 99285

== ENCOUNTER 2018-04-05 05:37 | Emergency (ER) | payer OTHER ==
--- NOTE | 2018-04-05 06:00 | ED ---
General Adult HPI - General Chief complaint: Psychiatric Symptoms Stated complaint: Chest pain Time Seen by Provider: 04/05/18 05:44 Source: patient, RN notes reviewed, old records reviewed Mode of arrival: EMS Limitations: no limitations - History of Present Illness Initial comments: This is a 52-year-old male the ER for evaluation. Patient presents today by EMS for evaluation chest pain, upon arrival to ER patient states related is wants to began last. Patient states he has been in the hospital 3 straight days and continues to complain of suicidal thoughts not feeling well and not feeling himself. - Related Data Home Medications Medication Instructions Recorded Confirmed DULoxetine HCL [Cymbalta] 40 mg PO DAILY 03/29/18 04/02/18 QUEtiapine [SEROquel] 400 mg PO HS 03/29/18 04/02/18 Allergies Allergy/AdvReac Type Severity Reaction Status Date / Time No Known Allergies Allergy Verified 04/03/18 23:27 Review of Systems ROS Statement: Those systems with pertinent positive or pertinent negative responses have been documented in the HPI. ROS Other: All systems not noted in ROS Statement are negative. Past Medical History Past Medical History: Hypertension Additional Past Medical History / Comment(s): etoh History of Any Multi-Drug Resistant Organisms: None Reported Past Surgical History: Orthopedic Surgery Additional Past Surgical History / Comment(s): Right knee surgery and salma placed in left femur, 3 surgeries on his eyes. Past Anesthesia/Blood Transfusion Reactions: No Reported Reaction Past Psychological History: Anxiety, Bipolar, Depression, Schizoaffective Disorder Smoking Status: Current every day smoker Past Alcohol Use History: Abuse, Daily, Heavy Past Drug Use History: None Reported - Past Family History Mother Additional Family Medical History / Comment(s): Mother at age 36 from motor vehicle accident. His father is also past but does not know the cause or his age. Patient has 3 brothers that are apparently without major medical problems. General Exam Limitations: no limitations General appearance: alert, in no apparent distress Head exam: Present: atraumatic, normocephalic, normal inspection Eye exam: Present: normal appearance, PERRL, EOMI. Absent: scleral icterus, conjunctival injection, periorbital swelling ENT exam: Present: normal exam, mucous membranes moist Neck exam: Present: normal inspection. Absent: tenderness, meningismus, lymphadenopathy Respiratory exam: Present: normal lung sounds bilaterally. Absent: respiratory distress, wheezes, rales, rhonchi, stridor Cardiovascular Exam: Present: regular rate, normal rhythm, normal heart sounds. Absent: systolic murmur, diastolic murmur, rubs, gallop, clicks GI/Abdominal exam: Present: soft, normal bowel sounds. Absent: distended, tenderness, guarding, rebound, rigid Extremities exam: Present: normal inspection, full ROM, normal capillary refill. Absent: tenderness, pedal edema, joint swelling, calf tenderness Back exam: Present: normal inspection Neurological exam: Present: alert, oriented X3, CN II-XII intact Psychiatric exam: Present: normal affect, normal mood Skin exam: Present: warm, dry, intact, normal color. Absent: rash Course Vital Signs 04/05/18 05:42 Temperature 98.1 F Pulse Rate 106 H Respiratory 20 Rate Blood Pressure 124/77 O2 Sat by Pulse 93 L Oximetry - Reevaluation(s) Reevaluation #1: 04/05/18 06:11 Medically clear for psychiatric evaluation Reevaluation #2: 04/05/18 06:22 Patient does not follow up with [facility] as directed he is not follow-up with active as directed EKG Findings - EKG Comments: EKG Findings:: EKG shows normal sinus rhythm 95, PA 146, QRS 80, QTC 505 Medical Decision Making - Medical Decision Making 52 male the ER for evaluation psychiatric evaluation chest pain evaluation. Patient well-known to facility patient will be discharged home Disposition Clinical Impression: Alcohol abuse Disposition: HOME SELF-CARE Condition: Good Instructions: Alcohol Use Disorder (ED), Abuse of Alcohol (ED) Is patient prescribed a controlled substance at d/c from ED?: No Referrals: Kermit Partida MD [Primary Care Provider] - 1-2 days
[2018-04-05 06:46] VITALS: BP 129/82; PULSE 100; RESP 16; TEMP 97.1
== END 2018-04-05 07:38 | disposition home or self-care (01) ==
LOC: EC 05:37
DX: F10.10 Alcohol abuse, uncomplicated (principal); R07.9 Chest pain, unspecified; R45.851 Suicidal ideations; F31.9 Bipolar disorder, unspecified; F41.9 Anxiety disorder, unspecified; F25.9 Schizoaffective disorder, unspecified; F17.200 Nicotine dependence, unspecified, uncomplicated; Z79.899 Other long term (current) drug therapy
CPT/HCPCS: 82075; 93005; 99285

== ENCOUNTER 2018-04-05 20:49 | Emergency (ER) | payer OTHER ==
[2018-04-05 20:56] VITALS: BP 137/87; PULSE 81; RESP 20; TEMP 98.1
--- NOTE | 2018-04-05 22:03 | ED ---
Psych HPI - General Chief Complaint: Psychiatric Symptoms Stated Complaint: Mental Health Eval Time Seen by Provider: 04/05/18 21:44 Source: patient, RN notes reviewed Mode of arrival: ambulatory - History of Present Illness Initial Comments: This is a 52-year-old male who presents to the emergency department for mental health evaluation. Patient states that he has been feeling depressed over the past few days. He states that he ran out of his Cymbalta and Seroquel. He admits to suicidal ideation and does state that he has thoughts of hurting others. He states there are "people get on my nerves." Patient denies any auditory or visual hallucinations. Does state that he drank a few beers prior to arrival. Denies illicit drug use. Denies recent illnesses or infections. Denies fever, chills, chest pain, shortness of breath, abdominal pain, nausea or vomiting, constipation or diarrhea, dysuria or hematuria, numbness or tingling, headache or vision changes. - Related Data Home Medications Medication Instructions Recorded Confirmed DULoxetine HCL [Cymbalta] 40 mg PO DAILY 03/29/18 04/05/18 QUEtiapine [SEROquel] 400 mg PO HS 03/29/18 04/05/18 Allergies Allergy/AdvReac Type Severity Reaction Status Date / Time No Known Allergies Allergy Verified 04/05/18 21:45 Review of Systems ROS Statement: Those systems with pertinent positive or pertinent negative responses have been documented in the HPI. ROS Other: All systems not noted in ROS Statement are negative. Past Medical History Past Medical History: Hypertension Additional Past Medical History / Comment(s): etoh History of Any Multi-Drug Resistant Organisms: None Reported Past Surgical History: Orthopedic Surgery Additional Past Surgical History / Comment(s): Right knee surgery and salma placed in left femur, 3 surgeries on his eyes. Past Anesthesia/Blood Transfusion Reactions: No Reported Reaction Past Psychological History: Anxiety, Bipolar, Depression, Schizoaffective Disorder Smoking Status: Current every day smoker Past Alcohol Use History: Abuse, Daily, Heavy Past Drug Use History: None Reported - Past Family History Mother Additional Family Medical History / Comment(s): Mother at age 36 from motor vehicle accident. His father is also past but does not know the cause or his age. Patient has 3 brothers that are apparently without major medical problems. General Exam - General Exam Comments Initial Comments: General: Awake and alert, well-developed; in no apparent distress. Calm and cooperative. HEENT: Head atraumatic, normocephalic. Pupils are equal, round and reactive to light. Extraocular movements intact. Oropharynx moist without erythema or exudate. Neck: Supple. Normal ROM. Cardiovascular: Regular rate and rhythm. No murmurs, rubs or gallops. Chest symmetrical. Respiratory: Lungs clear to auscultation bilaterally. No wheezes, rales or rhonchi. Normal respiratory effort with no use of accessory muscles. Abdomen: Soft, non-tender, non-distended. No rigidity, rebound or guarding. Normal bowel sounds in all 4 quadrants. Musculoskeletal: Normal ROM, no tenderness bilateral upper and lower extremities. Ambulating normally. Skin: [place], warm and dry without rashes or lesions. Neurological: Alert and oriented x3. CN II-XII grossly intact. Speech is fluent and answers are appropriate. No focal neuro deficits. Psychiatric: Normal mood and affect. No overt signs of depression or anxiety noted. Limitations: no limitations Course Vital Signs 04/05/18 20:51 Temperature 98.1 F Pulse Rate 81 Respiratory 20 Rate Blood Pressure 137/87 O2 Sat by Pulse 98 Oximetry Medical Decision Making - Medical Decision Making This is a 52-year-old male who presents to the emergency department for mental health evaluation. Patient admits to feeling depressed, stating that he has run out of his Cymbalta and Seroquel. Patient has been seen in the emergency department multiple times over the past few days with similar complaints. Patient is on court order to refrain from drinking alcohol and is in violation of this. Patient was evaluated by EPS nurse and they're recommending discharge home. EPS nurse was in contact with the patient's guardian who will be in contact with the local police department where patient will be transported to [facility] for violation of his probation. Vital signs are stable and patient is in no acute distress. Denies suicidal or homicidal ideation at this time. He'll be discharged home. Disposition Clinical Impression: Alcohol abuse, Depression Disposition: HOME SELF-CARE Condition: Good Instructions: Abuse of Alcohol (ED), Depression (ED) Additional Instructions: Please follow up with primary care provider within 1-2 days. Return to emergency department if symptoms should worsen or any concerns arise. Is patient prescribed a controlled substance at d/c from ED?: No Referrals: Kermit Partida MD [Primary Care Provider] - 1-2 days Time of Disposition: 23:18
== END 2018-04-05 23:45 | disposition home or self-care (01) ==
LOC: EC 20:49
DX: F32.9 Major depressive disorder, single episode, unspecified (principal); F10.10 Alcohol abuse, uncomplicated; F25.0 Schizoaffective disorder, bipolar type; F41.9 Anxiety disorder, unspecified; F17.200 Nicotine dependence, unspecified, uncomplicated; Z79.899 Other long term (current) drug therapy
CPT/HCPCS: 82075; 99285

== ENCOUNTER 2018-04-09 00:33 | Emergency (ER) | payer OTHER ==
[2018-04-09 00:40] VITALS: RESP 18
--- NOTE | 2018-04-09 01:14 | ED ---
Alcohol HPI - General Chief Complaint: Alcohol Stated Complaint: Fall-ETOH Time Seen by Provider: 04/09/18 00:58 Source: patient, RN notes reviewed Mode of arrival: ambulatory Limitations: no limitations, language barrier - History of Present Illness Initial Comments: This is a 52-year-old male who presents to the emergency department with chief complaint of fall and alcohol intoxication. Patient states that he has been drinking a little bit tonight. He states he was walking and tripped on the sidewalk, falling and injuring the palms of his hands. He states that his head hurts a little bit. Patient was transported to the emergency department via EMS. Patient does complain of a mild headache and some neck tenderness. He denies any other injuries or trauma. Patient states that he is depressed. Denies suicidal homicidal ideation. Denies auditory or visual hallucinations. Denies illicit drug use. Denies fevers or chills, chest pain or shortness breath, abdominal pain, nausea or vomiting. Denies any loss of consciousness. - Related Data Home Medications Medication Instructions Recorded Confirmed DULoxetine HCL [Cymbalta] 40 mg PO DAILY 03/29/18 04/09/18 QUEtiapine [SEROquel] 400 mg PO HS 03/29/18 04/09/18 Allergies Allergy/AdvReac Type Severity Reaction Status Date / Time No Known Allergies Allergy Verified 04/09/18 00:38 Review of Systems ROS Statement: Those systems with pertinent positive or pertinent negative responses have been documented in the HPI. ROS Other: All systems not noted in ROS Statement are negative. Past Medical History Past Medical History: Hypertension Additional Past Medical History / Comment(s): etoh History of Any Multi-Drug Resistant Organisms: None Reported Past Surgical History: Orthopedic Surgery Additional Past Surgical History / Comment(s): Right knee surgery and salma placed in left femur, 3 surgeries on his eyes. Past Anesthesia/Blood Transfusion Reactions: No Reported Reaction Past Psychological History: Anxiety, Bipolar, Depression, Schizoaffective Disorder Smoking Status: Current every day smoker Past Alcohol Use History: Abuse, Daily, Heavy Past Drug Use History: None Reported - Past Family History Mother Additional Family Medical History / Comment(s): Mother at age 36 from motor vehicle accident. His father is also past but does not know the cause or his age. Patient has 3 brothers that are apparently without major medical problems. General Exam - General Exam Comments Initial Comments: General: Awake and alert, well-developed; in no apparent distress. HEENT: Head atraumatic, normocephalic. Pupils are equal, round and reactive to light. Extraocular movements intact. Oropharynx moist without erythema or exudate. Neck: Supple. Normal ROM. Cardiovascular: Regular rate and rhythm. No murmurs, rubs or gallops. Chest symmetrical. Respiratory: Lungs clear to auscultation bilaterally. No wheezes, rales or rhonchi. Normal respiratory effort with no use of accessory muscles. Musculoskeletal: Normal ROM, no tenderness bilateral upper and lower extremities. Skin: [place], warm and dry without rashes or lesions. Neurological: Alert and oriented x3. CN II-XII grossly intact. Speech is fluent and answers are appropriate. No focal neuro deficits. Psychiatric: Patient does appear slightly intoxicated. Limitations: no limitations, language barrier Course Vital Signs 04/09/18 00:34 Temperature 97 F L Pulse Rate 87 Respiratory 18 Rate Blood Pressure 161/94 O2 Sat by Pulse 95 Oximetry Medical Decision Making - Medical Decision Making 52-year-old male who presents to the emergency department with chief complaint of alcohol intoxication and fall. Patient did have c-collar in place on presentation to the emergency department. He was transported via EMS. Patient does complain of some head and neck pain. Denies back or extremity pain. States he has been drinking and had a fall on the sidewalk. Denies loss of consciousness, nausea or vomiting, dizziness. Computed tomography scan of brain and C-spine was obtained. This revealed no acute abnormalities. Patient was evaluated by EPS nurse. Patient will be discharged to [facility] on . He is in no acute distress. - Lab Data Lab Results 04/09/18 Range/Units 01:40 Urine Opiates Screen Not Detected (NotDetected) Ur Oxycodone Screen Not Detected (NotDetected) Urine Methadone Screen Not Detected (NotDetected) Ur Propoxyphene Screen Not Detected (NotDetected) Ur Barbiturates Screen Not Detected (NotDetected) U Tricyclic Antidepress Detected H (NotDetected) Ur Phencyclidine Scrn Not Detected (NotDetected) Ur Amphetamines Screen Not Detected (NotDetected) U Methamphetamines Scrn Not Detected (NotDetected) U Benzodiazepines Scrn Not Detected (NotDetected) Urine Cocaine Screen Not Detected (NotDetected) U Marijuana (THC) Screen Detected H (NotDetected) - Radiology Data Radiology results: report reviewed CT brain and C-spine without contrast impression: Hydrocephalus. No evidence of cerebral edema. Mild atrophy. No change compared to old exam. Previous cervical spine surgery. No acute bony abnormality. No change compared to old exam. Disposition Clinical Impression: Alcohol abuse, Alcohol dependence Disposition: HOME SELF-CARE Condition: Good Instructions: Abuse of Alcohol (ED), Alcohol Dependence (ED) Additional Instructions: Please follow up with primary care provider within 1-2 days. Return to emergency department if symptoms should worsen or any concerns arise. Is patient prescribed a controlled substance at d/c from ED?: No Referrals: Kermit Partida MD [Primary Care Provider] - 1-2 days Time of Disposition: 04:01
[2018-04-09 02:07] LABS: Amphetamine Screen,Urine Not Detected (NotDetected); Barbiturate Screen,Urine Not Detected (NotDetected); Benzodiazepines Screen,Urine Not Detected (NotDetected); Cocaine Screen,Urine Not Detected (NotDetected); Methadone Screen, Urine Not Detected (NotDetected); Opiate Screen,Urine Not Detected (NotDetected); Oxycodone Screen, Urine Not Detected (NotDetected); Phencyclidine Screen,Urine Not Detected (NotDetected); Tricyclic Antidepressant,Urine Detected (NotDetected); Urn Cannabinoid Scrn Detected (NotDetected)
--- NOTE | 2018-04-09 02:11 | CT ---
EXAMINATION TYPE: CT brain [facility] [place] DATE OF EXAM: 04/09/2018 COMPARISON: 04/03/2018 HISTORY: Prior on synapse, ETOH, dizziness, fall CT DLP: [id number] body-318.80 mGycm Automated exposure control for dose reduction was used. TECHNIQUE: CT scan of the head and cervical spine are performed without contrast. FINDINGS: There is enlargement of the ventricles. There is mild cerebral cortical atrophy. There is no mass effect nor midline shift. There is no sign of intracranial hemorrhage. Calvarium is intact. The cervical vertebra show normal alignment. There is anterior fusion of the cervical spine from C4 t o C7. There is moderate spurring at C7-T1. There is no evidence of cervical spine fracture. Skull bas e is intact. IMPRESSION: Hydrocephalus. No evidence of cerebral edema. Mild atrophy. No change compared to old exam. Previous cervical spine surgery. No acute bony abnormality. No change compared to old exam.
[2018-04-09 04:24] VITALS: BP 149/79; PULSE 78; TEMP 98.5
== END 2018-04-09 04:30 | disposition home or self-care (01) ==
LOC: EC 00:33
DX: F10.229 Alcohol dependence with intoxication, unspecified (principal); G91.9 Hydrocephalus, unspecified; G31.9 Degenerative disease of nervous system, unspecified; S69.91XA Unspecified injury of right wrist, hand and finger(s), initial encounter; S69.92XA Unspecified injury of left wrist, hand and finger(s), initial encounter; R51 Headache; M54.2 Cervicalgia; F31.9 Bipolar disorder, unspecified; F41.9 Anxiety disorder, unspecified; F17.200 Nicotine dependence, unspecified, uncomplicated; Z79.899 Other long term (current) drug therapy; W18.09XA Striking against other object with subsequent fall, initial encounter; Y93.01 Activity, walking, marching and hiking; Y92.480 Sidewalk as the place of occurrence of the external cause
CPT/HCPCS: 70450; 72125; 80306; 82075; 99285

== ENCOUNTER 2018-04-11 10:01 | Emergency (ER) | payer OTHER ==
[2018-04-11 10:07] VITALS: RESP 20
--- NOTE | 2018-04-11 11:20 | ED ---
Psych HPI - General Chief Complaint: Psychiatric Symptoms Stated Complaint: Mental Health Time Seen by Provider: 04/11/18 10:07 Source: patient, police, RN notes reviewed Mode of arrival: ambulatory Limitations: no limitations - History of Present Illness Initial Comments: This a 52-year-old male present emergency from with police for psychiatric evaluation. Patient states that is not suicidal or homicidal denies any recent alcohol drinking but has a history of alcohol abuse. Patient has been from several times. Patient reportedly stated the police that he was any kill himself and jumped out front of vehicles. Patient denies this. Patient denies illicit drug use at this time. - Related Data Home Medications Medication Instructions Recorded Confirmed DULoxetine HCL [Cymbalta] 40 mg PO DAILY 03/29/18 04/11/18 QUEtiapine [SEROquel] 400 mg PO HS 03/29/18 04/11/18 Allergies Allergy/AdvReac Type Severity Reaction Status Date / Time No Known Allergies Allergy Verified 04/11/18 10:32 Review of Systems ROS Statement: Those systems with pertinent positive or pertinent negative responses have been documented in the HPI. ROS Other: All systems not noted in ROS Statement are negative. Past Medical History Past Medical History: Hypertension Additional Past Medical History / Comment(s): etoh History of Any Multi-Drug Resistant Organisms: None Reported Past Surgical History: Orthopedic Surgery Additional Past Surgical History / Comment(s): Right knee surgery and salma placed in left femur, 3 surgeries on his eyes. Past Anesthesia/Blood Transfusion Reactions: No Reported Reaction Past Psychological History: Anxiety, Bipolar, Depression, Schizoaffective Disorder Smoking Status: Current every day smoker Past Alcohol Use History: Abuse, Daily, Heavy Past Drug Use History: None Reported - Past Family History Mother Additional Family Medical History / Comment(s): Mother at age 36 from motor vehicle accident. His father is also past but does not know the cause or his age. Patient has 3 brothers that are apparently without major medical problems. General Exam General appearance: alert, in no apparent distress Head exam: Present: atraumatic, normocephalic, normal inspection Eye exam: Present: normal appearance, PERRL, EOMI. Absent: scleral icterus, conjunctival injection, periorbital swelling Respiratory exam: Present: normal lung sounds bilaterally. Absent: respiratory distress, wheezes, rales, rhonchi, stridor Cardiovascular Exam: Present: regular rate, normal rhythm, normal heart sounds. Absent: systolic murmur, diastolic murmur, rubs, gallop, clicks Neurological exam: Present: alert, oriented X3, CN II-XII intact Psychiatric exam: Present: normal affect, normal mood Skin exam: Present: warm, dry, intact, normal color. Absent: rash Course Vital Signs 04/11/18 10:04 Temperature 98.2 F Pulse Rate 97 Respiratory 20 Rate Blood Pressure 151/101 O2 Sat by Pulse 97 Oximetry Medical Decision Making - Medical Decision Making 52-year-old male presented for psychiatric evaluation. Patient was evaluated by [facility] and [facility]. Patient has a safety plan in place. Patient will be with CM to go to your offices and will be set up with programs and possible rehab. Disposition Clinical Impression: Alcohol dependence, Depression Disposition: HOME SELF-CARE Condition: Stable Instructions: Depression (ED) Additional Instructions: Please return to the Emergency Department if symptoms worsen or any other concerns. Is patient prescribed a controlled substance at d/c from ED?: No Referrals: Phillip Noel MD [Primary Care Provider] - 1-2 days Time of Disposition: 13:05
[2018-04-11 13:24] VITALS: BP 135/56; PULSE 78; TEMP 98.3
== END 2018-04-11 13:10 | disposition home or self-care (01) ==
LOC: SUPCPDRO 10:01 → EC 10:01
DX: F10.20 Alcohol dependence, uncomplicated (principal); F31.9 Bipolar disorder, unspecified; F25.9 Schizoaffective disorder, unspecified; F41.9 Anxiety disorder, unspecified; F17.200 Nicotine dependence, unspecified, uncomplicated; Z79.899 Other long term (current) drug therapy
CPT/HCPCS: 82075; 99284

== ENCOUNTER 2018-04-26 02:54 | Emergency (ER) | payer OTHER ==
[2018-04-26 03:02] VITALS: RESP 18
[2018-04-26] MEDS ORDERED: SODIUM CHLORIDE 0.9% 500 ML IV ONE (03:02)
--- NOTE | 2018-04-26 03:50 | XR ---
EXAMINATION TYPE: XR chest 2V DATE OF EXAM: 04/26/2018 COMPARISON: 04/03/2018 HISTORY: Chest pain TECHNIQUE: Frontal and lateral views of the chest are obtained. FINDINGS: Heart and mediastinum are normal. Lungs are clear. Diaphragm is normal. Bony thorax appear s normal. IMPRESSION: Normal chest. No change.
--- NOTE | 2018-04-26 04:12 | ED ---
General Adult HPI - General Chief complaint: Chest Pain Stated complaint: Chest pain Time Seen by Provider: 04/26/18 02:55 Source: patient, EMS, RN notes reviewed, old records reviewed Mode of arrival: EMS Limitations: no limitations - History of Present Illness Initial comments: 52-year-old male presents for evaluation of chest pain. Patient has had chest pain on and off for several days. This is typical for this patient. He is an alcoholic and admits to drinking heavily this evening. He is also having some epigastric pain associated with this chest pain. No dyspnea. Pain is nonradiating. No vomiting or diarrhea. No diaphoresis. - Related Data Home Medications Medication Instructions Recorded Confirmed DULoxetine HCL [Cymbalta] 40 mg PO DAILY 03/29/18 04/11/18 QUEtiapine [SEROquel] 400 mg PO HS 03/29/18 04/11/18 Allergies Allergy/AdvReac Type Severity Reaction Status Date / Time No Known Allergies Allergy Verified 04/26/18 03:00 Review of Systems ROS Statement: Those systems with pertinent positive or pertinent negative responses have been documented in the HPI. ROS Other: All systems not noted in ROS Statement are negative. Past Medical History Past Medical History: Hypertension Additional Past Medical History / Comment(s): etoh History of Any Multi-Drug Resistant Organisms: None Reported Past Surgical History: Orthopedic Surgery Additional Past Surgical History / Comment(s): Right knee surgery and salma placed in left femur, 3 surgeries on his eyes. Past Anesthesia/Blood Transfusion Reactions: No Reported Reaction Past Psychological History: Anxiety, Bipolar, Depression, Schizoaffective Disorder Smoking Status: Current every day smoker Past Alcohol Use History: Abuse, Daily, Heavy Past Drug Use History: None Reported - Past Family History Mother Additional Family Medical History / Comment(s): Mother at age 36 from motor vehicle accident. His father is also past but does not know the cause or his age. Patient has 3 brothers that are apparently without major medical problems. General Exam Limitations: no limitations General appearance: alert, in no apparent distress Head exam: Present: atraumatic, normocephalic Eye exam: Present: normal appearance, PERRL ENT exam: Present: mucous membranes dry Neck exam: Present: normal inspection. Absent: tenderness, meningismus Respiratory exam: Present: normal lung sounds bilaterally. Absent: respiratory distress, wheezes Cardiovascular Exam: Present: regular rate, normal rhythm GI/Abdominal exam: Present: soft, tenderness (Mild epigastric tenderness). Absent: distended Extremities exam: Present: normal inspection, normal capillary refill. Absent: pedal edema Neurological exam: Present: alert, motor sensory deficit Psychiatric exam: Present: normal affect, normal mood Skin exam: Present: warm, dry, intact. Absent: cyanosis, diaphoretic Course Vital Signs 04/26/18 04/26/18 04/26/18 02:56 04:53 06:20 Temperature 97.7 F 98.0 F Pulse Rate 100 108 H 103 H Respiratory 18 Rate Blood Pressure 144/87 129/71 112/62 O2 Sat by Pulse 96 98 96 Oximetry - Reevaluation(s) Reevaluation #1: 04/26/18 06:38 On reevaluation, patient is chest pain-free. EKG Findings - EKG Comments: EKG Findings:: EKG: Sinus tachycardia, left anterior fascicular block and inferior infarct, age undetermined, rate of 102, MD interval 170, QRS duration 86, QTC [address] segment elevation or depression Medical Decision Making - Medical Decision Making CBC, CMP and troponin are negative. Lipase is negative. Patient is resting comfortably on reevaluation. Chest x-ray negative for acute cardiopulmonary disease. - Lab Data Result diagrams: 04/26/18 04:05 04/26/18 04:05 Lab Results 04/26/18 04/26/18 04/26/18 Range/Units 04:05 04:05 04:05 WBC 10.0 (3.8-10.6) k/uL RBC 5.69 (4.30-5.90) m/uL Hgb 16.4 (13.0-17.5) gm/dL Hct 51.2 (39.0-53.0) % MCV 89.9 (80.0-100.0) fL MCH 28.8 (25.0-35.0) pg MCHC 32.1 (31.0-37.0) g/dL RDW 14.1 (11.5-15.5) % Plt Count 398 (150-450) k/uL Neutrophils % 73 % Lymphocytes % 17 % Monocytes % 8 % Eosinophils % 1 % Basophils % 0 % Neutrophils # 7.3 (1.3-7.7) k/uL Lymphocytes # 1.7 (1.0-4.8) k/uL Monocytes # 0.8 (0-1.0) k/uL Eosinophils # 0.1 (0-0.7) k/uL Basophils # 0.0 (0-0.2) k/uL Sodium 139 (137-145) mmol/L Potassium 4.2 (3.5-5.1) mmol/L Chloride 101 (98-107) mmol/L Carbon Dioxide 22 (22-30) mmol/L Anion Gap 16 mmol/L BUN 14 (9-20) mg/dL Creatinine 0.70 (0.66-1.25) mg/dL Est GFR (CKD-EPI)AfAm >90 (>60 ml/min/1.73 sqM) Est GFR (CKD-EPI)NonAf >90 (>60 ml/min/1.73 sqM) Glucose 90 (74-99) mg/dL Calcium 9.7 (8.4-10.2) mg/dL Magnesium 2.3 (1.6-2.3) mg/dL Total Bilirubin 0.5 (0.2-1.3) mg/dL AST 32 (17-59) U/L ALT 29 (21-72) U/L Alkaline Phosphatase 133 H (38-126) U/L Total Creatine Kinase 106 (55-170) U/L CK-MB (CK-2) 1.0 (0.0-2.4) ng/mL CK-MB (CK-2) Rel Index 0.9 Troponin I <0.012 (0.000-0.034) ng/mL Total Protein 8.4 H (6.3-8.2) g/dL Albumin 4.8 (3.5-5.0) g/dL Lipase 265 (23-300) U/L Serum Alcohol 57 mg/dL Disposition Clinical Impression: Chest pain, Alcohol dependence, continuous Disposition: HOME SELF-CARE Condition: Fair Instructions: Chest Pain (ED) Is patient prescribed a controlled substance at d/c from ED?: No Referrals: Phillip Noel MD [Primary Care Provider] - 1-2 days Time of Disposition: 05:38
[2018-04-26 04:35] LABS: ALT 29 U/L (21-72); AST 32 U/L (17-59); Albumin 4.8 g/dL (3.5-5.0); Alcohol 57 mg/dL; Alkaline Phosphatase 133 U/L (38-126); Anion Gap 16 mmol/L; Blood Urea Nitrogen 14 mg/dL (9-20); Calcium 9.7 mg/dL (8.4-10.2); Carbon Dioxide 22 mmol/L (22-30); Chloride 101 mmol/L (98-107); Glucose 90 mg/dL (74-99); Lipase 265 U/L (23-300); Magnesium 2.3 mg/dL (1.6-2.3); Potassium 4.2 mmol/L (3.5-5.1); Sodium 139 mmol/L (137-145); Total Bilirubin 0.5 mg/dL (0.2-1.3); Total Protein 8.4 g/dL (6.3-8.2)
[2018-04-26 04:38] LABS: Basophils % (A) 0 %; Eosinophils # (A) 0.1 k/uL (0-0.7); Eosinophils % (A) 1 %; HCT 51.2 % (39.0-53.0); HGB 16.4 gm/dL (13.0-17.5); Lymphocytes # (A) 1.7 k/uL (1.0-4.8); Lymphocytes % (A) 17 %; MCH 28.8 pg (25.0-35.0); MCHC 32.1 g/dL (31.0-37.0); MCV 89.9 fL (80.0-100.0); Mean Platelet Volume 6.9; Monocytes # (A) 0.8 k/uL (0-1.0); Monocytes % (A) 8 %; Neutrophils # (A) 7.3 k/uL (1.3-7.7); Neutrophils % (A) 73 %; Platelet Count 398 k/uL (150-450); RBC 5.69 m/uL (4.30-5.90); RDW 14.1 % (11.5-15.5)
[2018-04-26 04:40] LABS: Creatine Kinase 106 U/L (55-170)
[2018-04-26 04:53] LABS: Troponin I <0.012 ng/mL (0.000-0.034)
[2018-04-26 06:21] VITALS: BP 112/62; PULSE 103; TEMP 98
== END 2018-04-26 06:48 | disposition home or self-care (01) ==
LOC: EC 02:54
DX: R07.9 Chest pain, unspecified (principal); F10.20 Alcohol dependence, uncomplicated; R10.13 Epigastric pain; F25.0 Schizoaffective disorder, bipolar type; F25.1 Schizoaffective disorder, depressive type; F41.9 Anxiety disorder, unspecified; F17.200 Nicotine dependence, unspecified, uncomplicated; Z79.899 Other long term (current) drug therapy
CPT/HCPCS: 36415; 71046; 80053; 80320; 82550; 82553; 83690; 83735; 84484; 85025; 93005; 96360; 96361; 99285

== ENCOUNTER 2018-04-27 01:33 | Emergency (ER) | payer OTHER ==
--- NOTE | 2018-04-27 03:21 | ED ---
Alcohol HPI - General Chief Complaint: Alcohol Stated Complaint: ETOH Time Seen by Provider: 04/27/18 01:51 Source: patient Mode of arrival: EMS Limitations: no limitations - History of Present Illness Initial Comments: 52-year-old male patient presents the emergency department today after being picked up for alcohol intoxication. Reports from EMS states the patient was stumbling around nares concerned. Patient does admit to drinking alcohol. He denies any current physical symptoms or concerns. States he does not have a ride home. Patient does have a public guardian who was contacted and states that patient is in court order for rehabilitation services but keeps leaving to get drunk. Patient denies any suicidal or homicidal ideation. Patient denies any recent rash, fever, chills, shortness breath, chest pain, abdominal pain, nausea, vomiting, diarrhea, constipation, back pain, numbness, tingling, dizziness, weakness, hematuria, dysuria, urinary urgency, urinary frequency, headache, visual changes, or any other complaints. - Related Data Home Medications Medication Instructions Recorded Confirmed DULoxetine HCL [Cymbalta] 40 mg PO DAILY 03/29/18 04/27/18 QUEtiapine [SEROquel] 400 mg PO HS 03/29/18 04/27/18 Allergies Allergy/AdvReac Type Severity Reaction Status Date / Time No Known Allergies Allergy Verified 04/26/18 03:00 Review of Systems ROS Statement: Those systems with pertinent positive or pertinent negative responses have been documented in the HPI. ROS Other: All systems not noted in ROS Statement are negative. Past Medical History Past Medical History: Hypertension Additional Past Medical History / Comment(s): etoh History of Any Multi-Drug Resistant Organisms: None Reported Past Surgical History: Orthopedic Surgery Additional Past Surgical History / Comment(s): Right knee surgery and salma placed in left femur, 3 surgeries on his eyes. Past Anesthesia/Blood Transfusion Reactions: No Reported Reaction Past Psychological History: Anxiety, Bipolar, Depression, Schizoaffective Disorder Smoking Status: Current every day smoker Past Alcohol Use History: Abuse, Daily, Heavy Past Drug Use History: None Reported - Past Family History Mother Additional Family Medical History / Comment(s): Mother at age 36 from motor vehicle accident. His father is also past but does not know the cause or his age. Patient has 3 brothers that are apparently without major medical problems. General Exam Limitations: no limitations General appearance: alert, in no apparent distress, other (The well-developed, well-nourished adult male patient in no acute distress. Vital signs upon presentation are temperature 98.0F, pulse 111, respirations 20, blood pressure 153/90, pulse ox 96% on room air.) Eye exam: Present: normal appearance, PERRL, EOMI. Absent: scleral icterus, conjunctival injection, periorbital swelling ENT exam: Present: normal exam, normal oropharynx, mucous membranes moist Respiratory exam: Present: normal lung sounds bilaterally. Absent: respiratory distress, wheezes, rales, rhonchi, stridor Cardiovascular Exam: Present: regular rate, normal rhythm, normal heart sounds. Absent: systolic murmur, diastolic murmur, rubs, gallop, clicks GI/Abdominal exam: Present: soft, normal bowel sounds. Absent: distended, tenderness, guarding, rebound, rigid Neurological exam: Present: alert, oriented X3, CN II-XII intact Psychiatric exam: Present: normal affect, normal mood Skin exam: Present: warm, dry, intact, normal color. Absent: rash Course Vital Signs 04/27/18 04/27/18 01:39 03:43 Temperature 98.0 F 98.7 F Pulse Rate 111 H 110 H Respiratory 20 17 Rate Blood Pressure 153/90 120/75 O2 Sat by Pulse 96 98 Oximetry Medical Decision Making - Medical Decision Making 52-year-old male patient presented to the emergency department today brought in by EMS for being intoxicated. Physical examination is unremarkable. Patient denies any current physical concerns. Repeat that testing did show an alcohol level 0. 027. He'll be discharged home a blood guardian was informed of discharge. He is instructed to follow-up with his primary care physician for recheck in 1-2 days. He is instructed to avoid alcohol and the future. Return parameters discussed in detail. He verbalizes understanding and agrees with this plan. Disposition Clinical Impression: Alcohol intoxication Disposition: HOME SELF-CARE Condition: Good Instructions: Alcohol Intoxication (ED) Additional Instructions: Avoid alcohol use in the future. Follow-up with your primary care physician for further evaluation 1-2 days. Return here immediately for any new, worsening , or concerning symptoms. Is patient prescribed a controlled substance at d/c from ED?: No Referrals: Phillip Noel MD [Primary Care Provider] - 1-2 days Time of Disposition: 03:21
[2018-04-27 03:45] VITALS: BP 120/75; PULSE 110; RESP 17; TEMP 98.7
== END 2018-04-27 03:45 | disposition home or self-care (01) ==
LOC: EC 01:33
DX: F10.129 Alcohol abuse with intoxication, unspecified (principal); F31.9 Bipolar disorder, unspecified; F41.9 Anxiety disorder, unspecified; F25.9 Schizoaffective disorder, unspecified; F17.200 Nicotine dependence, unspecified, uncomplicated; Z79.899 Other long term (current) drug therapy
CPT/HCPCS: 82075; 99284

== ENCOUNTER 2018-06-06 04:05 | Emergency (ER) | payer OTHER ==
[2018-06-06 04:10] VITALS: RESP 18; TEMP 97
--- NOTE | 2018-06-06 04:28 | ED ---
Psych HPI - General Source: EMS Mode of arrival: EMS - History of Present Illness MD Complaint: suicidal ideation <Marlene Velázquez - Last Filed: 06/06/18 07:37> <Anam Foy - Last Filed: 06/06/18 10:47> - General Chief Complaint: Psychiatric Symptoms Stated Complaint: ETOH Time Seen by Provider: 06/06/18 04:06 - History of Present Illness Initial Comments: 52-year-old male with a history of depression and alcoholism is brought to the ER today via EMS for evaluation of suicidal thoughts. Patient reports that for the past 2 days he has been having suicidal thoughts and increased frequency. He denies any recent events that have caused this. He states that he is an alcoholic and this causes some emotional stress with his family. He states that over the past 2 days he has just been trying to drink himself into a stupor. Patient reports that he drank 10 beers today prior to EMS being called. He denies any other attempts to hurt himself but denies any other ingestions, admits to smoking marijuana. He has a history of depression, history of suicide attempts in the past, patient is an alcoholic reports daily alcohol use, he is currently homeless and reports that he is living in the [address]. He states that he is on antidepressant medication and has been taking it, he states that he takes Seroquel Remeron and he cannot recall what his third medication is but that he has been taking. (Marlene Velázquez) - Related Data Home Medications Medication Instructions Recorded Confirmed FLUoxetine HCL [PROzac] 20 mg PO DAILY 06/06/18 06/06/18 Gabapentin 800 mg PO TID 06/06/18 06/06/18 Mirtazapine [Remeron] 30 mg PO HS 06/06/18 06/06/18 Naltrexone HCl [Revia] 50 mg PO DAILY 06/06/18 06/06/18 QUEtiapine FUMARATE [SEROquel] 300 mg PO HS 06/06/18 06/06/18 Terbinafine [LamISIL] 250 mg PO DAILY 06/06/18 06/06/18 Vivitrol 380mg Injection 380 mg IM Q28D 06/06/18 06/06/18 Allergies Allergy/AdvReac Type Severity Reaction Status Date / Time No Known Allergies Allergy Verified 06/06/18 10:19 Review of Systems ROS Other: All systems not noted in ROS Statement are negative. <Marlene Velázquez - Last Filed: 06/06/18 07:37> ROS Other: All systems not noted in ROS Statement are negative. <Anam Foy - Last Filed: 06/06/18 10:47> ROS Statement: Those systems with pertinent positive or pertinent negative responses have been documented in the HPI. Past Medical History Past Medical History: Hypertension Additional Past Medical History / Comment(s): etoh History of Any Multi-Drug Resistant Organisms: None Reported Past Surgical History: Orthopedic Surgery Additional Past Surgical History / Comment(s): Right knee surgery and salma placed in left femur, 3 surgeries on his eyes. Past Anesthesia/Blood Transfusion Reactions: No Reported Reaction Past Psychological History: Anxiety, Bipolar, Depression, Schizoaffective Disorder Smoking Status: Current every day smoker Past Alcohol Use History: Abuse, Daily, Heavy Past Drug Use History: None Reported - Past Family History Mother Additional Family Medical History / Comment(s): Mother at age 36 from motor vehicle accident. His father is also past but does not know the cause or his age. Patient has 3 brothers that are apparently without major medical problems. <Marlene Velázquez P - Last Filed: 06/06/18 07:37> General Exam Limitations: no limitations General appearance: alert, appears intoxicated, other Head exam: Present: atraumatic, normocephalic Eye exam: Present: normal appearance, PERRL ENT exam: Present: normal exam Neck exam: Present: normal inspection Respiratory exam: Absent: respiratory distress Cardiovascular Exam: Present: regular rate, normal rhythm GI/Abdominal exam: Present: soft. Absent: distended Rectal exam: Present: deferred Extremities exam: Present: full ROM Back exam: Present: full ROM Neurological exam: Present: alert, oriented X3 Psychiatric exam: Present: depressed, suicidal ideation. Absent: homicidal ideation Skin exam: Present: warm, dry <Marlene Velázquez P - Last Filed: 06/06/18 07:37> Vital Signs 06/06/18 04:07 Temperature 97.0 F L Pulse Rate 90 Respiratory 18 Rate Blood Pressure 138/79 O2 Sat by Pulse 100 Oximetry Medical Decision Making - Lab Data Result diagrams: 06/06/18 05:30 06/06/18 05:30 <Marlene Velázquez - Last Filed: 06/06/18 07:37> - Lab Data Result diagrams: 06/06/18 05:30 06/06/18 05:30 <Anam Foy - Last Filed: 06/06/18 10:47> - Medical Decision Making The patient was seen and evaluated, history was obtained from the patient and EMS Patient with a history of alcohol abuse and depression reports that he has been trying to drink himself into a stupor because he is feeling suicidal Patient currently intoxicated, labs were ordered 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 Foy who will follow-up on psych recommendations (Marlene Velázquez) formula room worker will be driving the patient from the emergency department to his psychiatrist (Anam Foy) - Lab Data Lab Results 06/06/18 06/06/18 06/06/18 Range/Units 04:40 05:30 05:30 WBC 10.3 (3.8-10.6) k/uL RBC 5.37 (4.30-5.90) m/uL Hgb 14.6 (13.0-17.5) gm/dL Hct 47.7 (39.0-53.0) % MCV 88.9 (80.0-100.0) fL MCH 27.1 (25.0-35.0) pg MCHC 30.5 L (31.0-37.0) g/dL RDW 14.4 (11.5-15.5) % Plt Count 215 (150-450) k/uL Neutrophils % 73 % Lymphocytes % 18 % Monocytes % 6 % Eosinophils % 1 % Basophils % 0 % Neutrophils # 7.6 (1.3-7.7) k/uL Lymphocytes # 1.8 (1.0-4.8) k/uL Monocytes # 0.6 (0-1.0) k/uL Eosinophils # 0.1 (0-0.7) k/uL Basophils # 0.0 (0-0.2) k/uL Sodium 142 (137-145) mmol/L Potassium 4.3 (3.5-5.1) mmol/L Chloride 110 H (98-107) mmol/L Carbon Dioxide 16 L (22-30) mmol/L Anion Gap 16 mmol/L BUN 8 L (9-20) mg/dL Creatinine 0.70 (0.66-1.25) mg/dL Est GFR (CKD-EPI)AfAm >90 (>60 ml/min/1.73 sqM) Est GFR (CKD-EPI)NonAf >90 (>60 ml/min/1.73 sqM) Glucose 87 (74-99) mg/dL Calcium 9.3 (8.4-10.2) mg/dL Total Bilirubin 0.6 (0.2-1.3) mg/dL AST 32 (17-59) U/L ALT 23 (21-72) U/L Alkaline Phosphatase 104 (38-126) U/L Total Protein 7.6 (6.3-8.2) g/dL Albumin 4.6 (3.5-5.0) g/dL Urine Color Colorless Urine Appearance Clear (Clear) Urine pH 5.0 (5.0-8.0) Ur Specific [place] 1.002 (1.001-1.035) Urine Protein Negative (Negative) Urine Glucose (UA) Negative (Negative) Urine Ketones Negative (Negative) Urine Blood Negative (Negative) Urine Nitrite Negative (Negative) Urine Bilirubin Negative (Negative) Urine Urobilinogen <2.0 (<2.0) mg/dL Ur Leukocyte Esterase Negative (Negative) Urine Opiates Screen Not Detected (NotDetected) Ur Oxycodone Screen Not Detected (NotDetected) Urine Methadone Screen Not Detected (NotDetected) Ur Propoxyphene Screen Not Detected (NotDetected) Ur Barbiturates Screen Not Detected (NotDetected) U Tricyclic Antidepress Detected H (NotDetected) Ur Phencyclidine Scrn Not Detected (NotDetected) Ur Amphetamines Screen Not Detected (NotDetected) U Methamphetamines Scrn Not Detected (NotDetected) U Benzodiazepines Scrn Not Detected (NotDetected) Urine Cocaine Screen Not Detected (NotDetected) U Marijuana (THC) Screen Detected H (NotDetected) Serum Alcohol 128 mg/dL Disposition <Marlene Velázquez P - Last Filed: 06/06/18 07:37> Is patient prescribed a controlled substance at d/c from ED?: No Time of Disposition: 10:47 <Anam Foy - Last Filed: 06/06/18 10:47> Clinical Impression: Situational depression, Alcohol intoxication Disposition: HOME SELF-CARE Referrals: Phillip Noel MD [Primary Care Provider] - 1-2 days
[2018-06-06 05:12] LABS: Appearance,Urine Clear (Clear); Bilirubin,Urine Negative (Negative); Blood,Urine Negative (Negative); Color,Urine Colorless; Glucose,Urine (UA) Negative (Negative); Ketones,Urine Negative (Negative); Leukocyte Esterase,Urine Negative (Negative); Nitrite,Urine Negative (Negative); Protein,Urine Negative (Negative); Specific Gravity,Urine 1.002 (1.001-1.035); Urobilinogen,Urine <2.0 mg/dL (<2.0)
[2018-06-06 05:38] LABS: Basophils % (A) 0 %; Eosinophils # (A) 0.1 k/uL (0-0.7); Eosinophils % (A) 1 %; HCT 47.7 % (39.0-53.0); HGB 14.6 gm/dL (13.0-17.5); Lymphocytes # (A) 1.8 k/uL (1.0-4.8); Lymphocytes % (A) 18 %; MCH 27.1 pg (25.0-35.0); MCHC 30.5 g/dL (31.0-37.0); MCV 88.9 fL (80.0-100.0); Mean Platelet Volume 7.4; Monocytes # (A) 0.6 k/uL (0-1.0); Monocytes % (A) 6 %; Neutrophils # (A) 7.6 k/uL (1.3-7.7); Neutrophils % (A) 73 %; Platelet Count 215 k/uL (150-450); RBC 5.37 m/uL (4.30-5.90); RDW 14.4 % (11.5-15.5); WBC 10.3 k/uL (3.8-10.6)
[2018-06-06 05:39] LABS: Amphetamine Screen,Urine Not Detected (NotDetected); Barbiturate Screen,Urine Not Detected (NotDetected); Benzodiazepines Screen,Urine Not Detected (NotDetected); Cocaine Screen,Urine Not Detected (NotDetected); Methadone Screen, Urine Not Detected (NotDetected); Opiate Screen,Urine Not Detected (NotDetected); Oxycodone Screen, Urine Not Detected (NotDetected); Phencyclidine Screen,Urine Not Detected (NotDetected); Tricyclic Antidepressant,Urine Detected (NotDetected); Urn Cannabinoid Scrn Detected (NotDetected)
[2018-06-06 05:50] LABS: Anion Gap 16 mmol/L; Calcium 9.3 mg/dL (8.4-10.2); Carbon Dioxide 16 mmol/L (22-30); Chloride 110 mmol/L (98-107); Glucose 87 mg/dL (74-99); Sodium 142 mmol/L (137-145); Total Bilirubin 0.6 mg/dL (0.2-1.3)
[2018-06-06 06:02] LABS: ALT 23 U/L (21-72); AST 32 U/L (17-59); Albumin 4.6 g/dL (3.5-5.0); Alcohol 128 mg/dL; Alkaline Phosphatase 104 U/L (38-126); Blood Urea Nitrogen 8 mg/dL (9-20); Potassium 4.3 mmol/L (3.5-5.1); Total Protein 7.6 g/dL (6.3-8.2)
[2018-06-06 11:00] VITALS: BP 97/59; PULSE 125
== END 2018-06-06 11:00 | disposition home or self-care (01) ==
LOC: EC 04:05
DX: F43.21 Adjustment disorder with depressed mood (principal); F10.120 Alcohol abuse with intoxication, uncomplicated; F41.9 Anxiety disorder, unspecified; F25.1 Schizoaffective disorder, depressive type; F25.0 Schizoaffective disorder, bipolar type; F17.200 Nicotine dependence, unspecified, uncomplicated; Z79.899 Other long term (current) drug therapy
CPT/HCPCS: 36415; 80053; 80306; 80320; 81003; 82075; 85025; 99285

== ENCOUNTER 2018-06-07 22:49 | Emergency (ER) | payer OTHER ==
[2018-06-07 23:42] LABS: Appearance,Urine Clear (Clear); Basophils % (A) 0 %; Bilirubin,Urine Negative (Negative); Blood,Urine Negative (Negative); Color,Urine Colorless; Eosinophils # (A) 0.2 k/uL (0-0.7); Eosinophils % (A) 2 %; Glucose,Urine (UA) Negative (Negative); HCT 52.6 % (39.0-53.0); HGB 16.9 gm/dL (13.0-17.5); Ketones,Urine Negative (Negative); Leukocyte Esterase,Urine Negative (Negative); Lymphocytes # (A) 2.3 k/uL (1.0-4.8); Lymphocytes % (A) 27 %; MCH 28.2 pg (25.0-35.0); MCHC 32.2 g/dL (31.0-37.0); MCV 87.5 fL (80.0-100.0); Mean Platelet Volume 7.3; Monocytes # (A) 0.5 k/uL (0-1.0); Monocytes % (A) 6 %; Neutrophils # (A) 5.4 k/uL (1.3-7.7); Neutrophils % (A) 64 %; Nitrite,Urine Negative (Negative); PH, Urine 5.5 (5.0-8.0); Platelet Count 270 k/uL (150-450); Protein,Urine Negative (Negative); RBC 6.01 m/uL (4.30-5.90); RDW 14.4 % (11.5-15.5); Specific Gravity,Urine 1.002 (1.001-1.035); Urobilinogen,Urine <2.0 mg/dL (<2.0); WBC 8.4 k/uL (3.8-10.6)
[2018-06-07 23:50] LABS: Partial Thromboplastin Time 26.1 sec (22.0-30.0)
[2018-06-07 23:54] LABS: ALT 27 U/L (21-72); AST 29 U/L (17-59); Alkaline Phosphatase 143 U/L (38-126); Anion Gap 16 mmol/L; Blood Urea Nitrogen 8 mg/dL (9-20); Calcium 9.9 mg/dL (8.4-10.2); Carbon Dioxide 24 mmol/L (22-30); Chloride 107 mmol/L (98-107); Glucose 108 mg/dL (74-99); Magnesium 2.3 mg/dL (1.6-2.3); Potassium 3.8 mmol/L (3.5-5.1); Sodium 147 mmol/L (137-145); Total Bilirubin 0.5 mg/dL (0.2-1.3); Total Protein 8.5 g/dL (6.3-8.2)
--- NOTE | 2018-06-08 00:42 | CT ---
EXAMINATION TYPE: CT brain nikolai powell con DATE OF EXAM: 06/08/2018 COMPARISON: 04/09/2018 HISTORY: Fall;evaluate for trauma CT DLP: 1684 mGycm Automated exposure control for dose reduction was used. TECHNIQUE: CT scan of the head and cervical spine are performed without contrast. FINDINGS: There is enlargement of the ventricles. There is no mass effect nor midline shift. There is no sign of intracranial hemorrhage. There is no evidence of cerebral edema. The calvarium appears intact. Cervical vertebra have normal alignment. There is apparent old anterior fusion from C4 to C7. There i s spurring at C6-7 endplates. There is mild hypertrophic multilevel facet arthropathy. The skull base is intact. There is no evidence of cervical spine fracture. IMPRESSION: Moderate hydrocephalus. No evidence of cerebral edema. No acute intracranial abnormality. No change c ompared to old exam. Spondylotic changes and multilevel fusion surgery. No fracture. No change.
--- NOTE | 2018-06-08 03:38 | ED ---
General Adult HPI - General Source: patient, RN notes reviewed Mode of arrival: EMS Limitations: no limitations <Bala Rodgers P - Last Filed: 06/08/18 17:00> <Marlene Velázquez P - Last Filed: 06/09/18 06:45> - General Chief complaint: Fall Stated complaint: ETOH/Fall Time Seen by Provider: 06/07/18 23:16 - History of Present Illness Initial comments: 52-year-old male presents to the emergency department for a chief complaint of head injury. Patient states he was walking near a [employer] when he tripped on the sidewalk and fell and hit his head. Patient denies any loss of consciousness. Patient denies any headache. Patient admits to drinking tonight stating he drank about 20 beers. Patient denies pain elsewhere. Patient denies any thoughts of suicide or harming himself. Patient denies any thoughts of harming anyone else. Patient has no other complaints at this time including shortness of breath, chest pain, abdominal pain, nausea or vomiting, headache, or visual changes. (Bala Rodgers) - Related Data Home Medications Medication Instructions Recorded Confirmed FLUoxetine HCL [PROzac] 20 mg PO DAILY 06/06/18 06/07/18 Gabapentin 800 mg PO TID 06/06/18 06/07/18 Mirtazapine [Remeron] 30 mg PO HS 06/06/18 06/07/18 Naltrexone HCl [Revia] 50 mg PO DAILY 06/06/18 06/07/18 QUEtiapine FUMARATE [SEROquel] 300 mg PO HS 06/06/18 06/07/18 Terbinafine [LamISIL] 250 mg PO DAILY 06/06/18 06/07/18 Vivitrol 380mg Injection 380 mg IM Q28D 06/06/18 06/07/18 Allergies Allergy/AdvReac Type Severity Reaction Status Date / Time No Known Allergies Allergy Verified 06/07/18 23:07 Review of Systems ROS Other: All systems not noted in ROS Statement are negative. <Bala Rodgers P - Last Filed: 06/08/18 17:00> ROS Other: All systems not noted in ROS Statement are negative. <Marlene Velázquez P - Last Filed: 06/09/18 06:45> ROS Statement: Those systems with pertinent positive or pertinent negative responses have been documented in the HPI. Past Medical History Past Medical History: Hypertension Additional Past Medical History / Comment(s): etoh History of Any Multi-Drug Resistant Organisms: None Reported Past Surgical History: Orthopedic Surgery Additional Past Surgical History / Comment(s): Right knee surgery and salma placed in left femur, 3 surgeries on his eyes. Past Anesthesia/Blood Transfusion Reactions: No Reported Reaction Past Psychological History: Anxiety, Bipolar, Depression, Schizoaffective Disorder Smoking Status: Current every day smoker Past Alcohol Use History: Abuse, Daily, Heavy Past Drug Use History: None Reported - Past Family History Mother Additional Family Medical History / Comment(s): Mother at age 36 from motor vehicle accident. His father is also past but does not know the cause or his age. Patient has 3 brothers that are apparently without major medical problems. <Bala Rodgers P - Last Filed: 06/08/18 17:00> General Exam Limitations: no limitations General appearance: alert, in no apparent distress Head exam: Present: atraumatic (no evidence of hematoma or contusion), normocephalic, normal inspection Eye exam: Present: normal appearance, PERRL, EOMI. Absent: scleral icterus, conjunctival injection, periorbital swelling ENT exam: Present: normal exam, mucous membranes moist Neck exam: Present: normal inspection, full ROM. Absent: tenderness, meningismus, lymphadenopathy Respiratory exam: Present: normal lung sounds bilaterally. Absent: respiratory distress, wheezes, rales, rhonchi, stridor Cardiovascular Exam: Present: regular rate, normal rhythm, normal heart sounds. Absent: systolic murmur, diastolic murmur, rubs, gallop, clicks GI/Abdominal exam: Present: soft, normal bowel sounds. Absent: distended, tenderness, guarding, rebound, rigid Neurological exam: Present: alert, oriented X3, CN II-XII intact Psychiatric exam: Present: normal affect, normal mood. Absent: homicidal ideation, suicidal ideation <Bala Rodgers P - Last Filed: 06/08/18 17:00> Vital Signs 06/07/18 06/08/18 06/08/18 23:02 03:51 06:33 Temperature 98.7 F 97.8 F 98.6 F Pulse Rate 97 90 123 H Respiratory 18 17 18 Rate Blood Pressure 161/83 110/62 104/62 O2 Sat by Pulse 96 96 96 Oximetry EKG Findings - EKG Comments: EKG Findings:: EKG shows ventricular rate of 106, sinus tachycardia, AK interval 156, QTc 523 <Bala Rodgers - Last Filed: 06/08/18 17:00> Medical Decision Making - Lab Data Result diagrams: 06/07/18 22:28 06/07/18 22:28 <Bala Rodgers - Last Filed: 06/08/18 17:00> - Lab Data Result diagrams: 06/07/18 22:28 06/07/18 22:28 <Marlene Velázquez - Last Filed: 06/09/18 06:45> - Medical Decision Making 52-year-old male presents to the emergency department for a chief complaint of fall occurring about one hour ago. Patient denies loss of consciousness but does state he hit his head. Patient denies headache at this time. Full range of motion of the neck. No focal neuro deficits. GCS 15. Patient does have a sinus tachycardia 106 on EKG with a prolonged QT. CBC and CMP were unremarkable. Sodium 147, potassium 3.8. Urine negative. Patient does have a positive EtOH in the emergency department. Head CT showed moderate hydrocephalus without evidence of cerebral edema or acute intracranial abnormality. No change compared to old exam. No fracture in the C-spine. At this time, patient is stable. He is alert and interactive. Care handed over to Dr. Velázquez at 0530. (Bala Rodgers) I personally saw and examined the patient. I reviewed and agree with the mid- level provider findings including all diagnostic interpretations and treatment plans as written unless otherwise stated. I was present for wesley portions of any procedures performed. EKG revealed a prolonged QT which was new from previous EKGs however cardiac workup and electrolytes were within normal limits The patient was noted to be intoxicated, patient care was signed out to me by Bala BROWNE awaiting patient's clinical sobriety. Patient was sober in the morning is stable for discharge home. Patient was able to cough or ride home. (Marlene Velázquez) - Lab Data Lab Results 06/07/18 06/07/18 06/07/18 Range/Units 22:28 22:28 22:28 WBC 8.4 (3.8-10.6) k/uL RBC 6.01 H (4.30-5.90) m/uL Hgb 16.9 (13.0-17.5) gm/dL Hct 52.6 (39.0-53.0) % MCV 87.5 (80.0-100.0) fL MCH 28.2 (25.0-35.0) pg MCHC 32.2 (31.0-37.0) g/dL RDW 14.4 (11.5-15.5) % Plt Count 270 (150-450) k/uL Neutrophils % 64 % Lymphocytes % 27 % Monocytes % 6 % Eosinophils % 2 % Basophils % 0 % Neutrophils # 5.4 (1.3-7.7) k/uL Lymphocytes # 2.3 (1.0-4.8) k/uL Monocytes # 0.5 (0-1.0) k/uL Eosinophils # 0.2 (0-0.7) k/uL Basophils # 0.0 (0-0.2) k/uL PT 10.0 (9.0-12.0) sec INR 1.0 (<1.2) APTT 26.1 (22.0-30.0) sec Sodium 147 H (137-145) mmol/L Potassium 3.8 (3.5-5.1) mmol/L Chloride 107 (98-107) mmol/L Carbon Dioxide 24 (22-30) mmol/L Anion Gap 16 mmol/L BUN 8 L (9-20) mg/dL Creatinine 0.80 (0.66-1.25) mg/dL Est GFR (CKD-EPI)AfAm >90 (>60 ml/min/1.73 sqM) Est GFR (CKD-EPI)NonAf >90 (>60 ml/min/1.73 sqM) Glucose 108 H (74-99) mg/dL Calcium 9.9 (8.4-10.2) mg/dL Magnesium 2.3 (1.6-2.3) mg/dL Total Bilirubin 0.5 (0.2-1.3) mg/dL AST 29 (17-59) U/L ALT 27 (21-72) U/L Alkaline Phosphatase 143 H (38-126) U/L Troponin I (0.000-0.034) ng/mL Total Protein 8.5 H (6.3-8.2) g/dL Albumin 5.0 (3.5-5.0) g/dL Urine Color Urine Appearance (Clear) Urine pH (5.0-8.0) Ur Specific [place] (1.001-1.035) Urine Protein (Negative) Urine Glucose (UA) (Negative) Urine Ketones (Negative) Urine Blood (Negative) Urine Nitrite (Negative) Urine Bilirubin (Negative) Urine Urobilinogen (<2.0) mg/dL Ur Leukocyte Esterase (Negative) 06/07/18 06/07/18 Range/Units 22:28 22:28 WBC (3.8-10.6) k/uL RBC (4.30-5.90) m/uL Hgb (13.0-17.5) gm/dL Hct (39.0-53.0) % MCV (80.0-100.0) fL MCH (25.0-35.0) pg MCHC (31.0-37.0) g/dL RDW (11.5-15.5) % Plt Count (150-450) k/uL Neutrophils % % Lymphocytes % % Monocytes % % Eosinophils % % Basophils % % Neutrophils # (1.3-7.7) k/uL Lymphocytes # (1.0-4.8) k/uL Monocytes # (0-1.0) k/uL Eosinophils # (0-0.7) k/uL Basophils # (0-0.2) k/uL PT (9.0-12.0) sec INR (<1.2) APTT (22.0-30.0) sec Sodium (137-145) mmol/L Potassium (3.5-5.1) mmol/L Chloride (98-107) mmol/L Carbon Dioxide (22-30) mmol/L Anion Gap mmol/L BUN (9-20) mg/dL Creatinine (0.66-1.25) mg/dL Est GFR (CKD-EPI)AfAm (>60 ml/min/1.73 sqM) Est GFR (CKD-EPI)NonAf (>60 ml/min/1.73 sqM) Glucose (74-99) mg/dL Calcium (8.4-10.2) mg/dL Magnesium (1.6-2.3) mg/dL Total Bilirubin (0.2-1.3) mg/dL AST (17-59) U/L ALT (21-72) U/L Alkaline Phosphatase (38-126) U/L Troponin I <0.012 (0.000-0.034) ng/mL Total Protein (6.3-8.2) g/dL Albumin (3.5-5.0) g/dL Urine Color Colorless Urine Appearance Clear (Clear) Urine pH 5.5 (5.0-8.0) Ur Specific [place] 1.002 (1.001-1.035) Urine Protein Negative (Negative) Urine Glucose (UA) Negative (Negative) Urine Ketones Negative (Negative) Urine Blood Negative (Negative) Urine Nitrite Negative (Negative) Urine Bilirubin Negative (Negative) Urine Urobilinogen <2.0 (<2.0) mg/dL Ur Leukocyte Esterase Negative (Negative) Disposition Is patient prescribed a controlled substance at d/c from ED?: No Time of Disposition: 04:34 <Bala Rodgers P - Last Filed: 06/08/18 17:00> <Marlene Velázquez P - Last Filed: 06/09/18 06:45> Clinical Impression: Head injury Disposition: HOME SELF-CARE Condition: Good Instructions: Head Injury (ED) Additional Instructions: Please take Tylenol for pain. Please follow-up with primary care in 1-2 days. Return to the emergency department if you have any worsening symptoms. Referrals: Phillip Noel MD [Primary Care Provider] - 1-2 days
[2018-06-08 06:34] VITALS: BP 104/62; PULSE 123; RESP 18; TEMP 98.6
== END 2018-06-08 06:47 | disposition home or self-care (01) ==
LOC: EC 22:49
DX: S09.90XA Unspecified injury of head, initial encounter (principal); G91.9 Hydrocephalus, unspecified; R40.2412 Glasgow coma scale score 13-15, at arrival to emergency department; R00.0 Tachycardia, unspecified; F41.9 Anxiety disorder, unspecified; F25.0 Schizoaffective disorder, bipolar type; F25.1 Schizoaffective disorder, depressive type; F17.200 Nicotine dependence, unspecified, uncomplicated; Z79.899 Other long term (current) drug therapy; W01.10XA Fall on same level from slipping, tripping and stumbling with subsequent striking against unspecified object, initial encounter; Y92.480 Sidewalk as the place of occurrence of the external cause
CPT/HCPCS: 36415; 70450; 72125; 80053; 81003; 83735; 84484; 85025; 85610; 85730; 93005; 99285

== ENCOUNTER 2018-06-14 02:13 | Emergency (ER) | payer OTHER ==
[2018-06-14 02:27] VITALS: RESP 18
[2018-06-14 07:24] VITALS: PULSE 98
[2018-06-14 08:27] VITALS: BP 133/78; TEMP 98.2
--- NOTE | 2018-06-27 07:34 | ED ---
Alcohol HPI - General Chief Complaint: Fall Stated Complaint: ETOH Time Seen by Provider: 06/14/18 02:16 Source: patient, EMS Mode of arrival: EMS Limitations: no limitations - History of Present Illness Initial Comments: This patient is a 52-year-old man who was brought to be evaluated after first responders were called for an intoxicated person. When I interview the patient he does not have any complaints. He states that he wants to go home. 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 Previous Visits for Alcohol Intoxication?: Yes Recent Trauma: No Associated Symptoms: denies other symptoms Treatments Prior to Arrival: none Chronic Alcohol Use: Yes - Related Data Home Medications Medication Instructions Recorded Confirmed FLUoxetine HCL [PROzac] 20 mg PO DAILY 06/06/18 06/24/18 Gabapentin 800 mg PO TID 06/06/18 06/24/18 Mirtazapine [Remeron] 30 mg PO HS 06/06/18 06/24/18 Naltrexone HCl [Revia] 50 mg PO DAILY 06/06/18 06/24/18 QUEtiapine FUMARATE [SEROquel] 300 mg PO HS 06/06/18 06/24/18 [place] Carbonate 600 mg PO HS 06/24/18 06/24/18 Vivitrol 380 mg INJ Q28D 06/24/18 06/24/18 Previous Rx's Medication Instructions Recorded Metoprolol Tartrate [Lopressor] 50 mg PO BID #20 tab 06/25/18 Thiamine [Vitamin B-1] 100 mg PO BID@1200,1700 tab 06/25/18 Allergies Allergy/AdvReac Type Severity Reaction Status Date / Time No Known Allergies Allergy Verified 06/24/18 14:35 Review of Systems ROS Statement: Those systems with pertinent positive or pertinent negative responses have been documented in the HPI. ROS Other: All systems not noted in ROS Statement are negative. Constitutional: Denies: fever, chills Respiratory: Denies: cough, dyspnea Cardiovascular: Denies: chest pain, syncope Gastrointestinal: Denies: abdominal pain, vomiting, diarrhea Musculoskeletal: Denies: back pain Skin: Denies: rash Neurological: Denies: headache, weakness, numbness Psychiatric: Denies: homicidal thoughts, suicidal thoughts Past Medical History Past Medical History: Hypertension Additional Past Medical History / Comment(s): etoh History of Any Multi-Drug Resistant Organisms: None Reported Past Surgical History: Orthopedic Surgery Additional Past Surgical History / Comment(s): Right knee surgery and salma placed in left femur, 3 surgeries on his eyes. Past Anesthesia/Blood Transfusion Reactions: No Reported Reaction Past Psychological History: Anxiety, Bipolar, Depression, Schizoaffective Disorder Smoking Status: Current every day smoker Past Alcohol Use History: Abuse, Daily, Heavy Past Drug Use History: None Reported - Past Family History Mother Additional Family Medical History / Comment(s): Mother at age 36 from motor vehicle accident. His father is also past but does not know the cause or his age. Patient has 3 brothers that are apparently without major medical problems. General Exam Limitations: no limitations General appearance: alert, in no apparent distress, appears intoxicated Head exam: Present: atraumatic, normocephalic Eye exam: Present: normal appearance. Absent: scleral icterus, conjunctival injection Neck exam: Present: normal inspection, full ROM Respiratory exam: Present: normal lung sounds bilaterally. Absent: respiratory distress, wheezes, rales, rhonchi, stridor, chest wall tenderness Cardiovascular Exam: Present: regular rate, normal rhythm, normal heart sounds. Absent: systolic murmur, diastolic murmur, rubs, gallop GI/Abdominal exam: Present: soft. Absent: distended, tenderness, guarding, rebound, rigid, mass Extremities exam: Present: normal inspection, normal capillary refill Back exam: Present: normal inspection. Absent: CVA tenderness (R), CVA tenderness (L), paraspinal tenderness, vertebral tenderness Neurological exam: Present: alert, oriented X3, normal gait. Absent: motor sensory deficit Skin exam: Present: warm, dry, intact, normal color. Absent: rash Course Vital Signs 06/14/18 06/14/18 06/14/18 02:16 07:22 08:26 Temperature 97.1 F L 98.2 F Pulse Rate 77 98 98 Respiratory 18 18 18 Rate Blood Pressure 158/88 132/85 133/78 O2 Sat by Pulse 96 99 100 Oximetry Medical Decision Making - Medical Decision Making This patient's 52-year-old man wrought in by EMS after they were called to a gas station for an intoxicated person. He did not have any complaints and was observed in the emergency department. Review of the triage note reveal that he did have a fall. Patient did not have tenderness and declined x-ray Disposition Clinical Impression: Alcohol intoxication, Fall Disposition: HOME SELF-CARE Condition: Good Instructions: Abuse of Alcohol (ED) Is patient prescribed a controlled substance at d/c from ED?: No Referrals: Phillip Noel MD [Primary Care Provider] - 1-2 days
== END 2018-06-14 08:29 | disposition home or self-care (01) ==
LOC: EC 02:13
DX: F10.129 Alcohol abuse with intoxication, unspecified (principal); F31.9 Bipolar disorder, unspecified; F41.9 Anxiety disorder, unspecified; F17.200 Nicotine dependence, unspecified, uncomplicated; Z79.899 Other long term (current) drug therapy; W10.1XXA Fall (on)(from) sidewalk curb, initial encounter; Y92.89 Other specified places as the place of occurrence of the external cause
CPT/HCPCS: 99283

== ENCOUNTER 2018-06-15 11:50 | Emergency (ER) | payer OTHER ==
--- NOTE | 2018-06-15 12:12 | ED ---
Fall HPI - General Chief Complaint: Fall Stated Complaint: ETOH Time Seen by Provider: 06/15/18 12:03 Source: patient, EMS, RN notes reviewed Mode of arrival: EMS Limitations: no limitations - History of Present Illness Initial Comments: This is a 52-year-old male who presented to the emergency room via EMS for alcohol intoxication. Patient was found asleep on a porch of a house that is for sale. Police were called EMS were called. He is brought here because he was intoxicated. Patient has had multiple falls recently. He did have a CAT scan of his head and neck which was shown have no acute abnormality. He does have an abrasion on his nose and last tetanus and record was from 2014. Patient denies headache, blurred vision, nausea, vomiting, neck pain, back pain , chest pain or shortness breath. Patient was able to ambulate without difficulty. Patient is alcoholic he does admit to drinking 6-8 beers today. - Related Data Home Medications Medication Instructions Recorded Confirmed FLUoxetine HCL [PROzac] 20 mg PO DAILY 06/06/18 06/14/18 Gabapentin 800 mg PO TID 06/06/18 06/14/18 Mirtazapine [Remeron] 30 mg PO HS 06/06/18 06/14/18 Naltrexone HCl [Revia] 50 mg PO DAILY 06/06/18 06/14/18 QUEtiapine FUMARATE [SEROquel] 300 mg PO HS 06/06/18 06/14/18 Allergies Allergy/AdvReac Type Severity Reaction Status Date / Time No Known Allergies Allergy Verified 06/15/18 12:08 Review of Systems ROS Statement: Those systems with pertinent positive or pertinent negative responses have been documented in the HPI. ROS Other: All systems not noted in ROS Statement are negative. Past Medical History Past Medical History: Hypertension Additional Past Medical History / Comment(s): etoh History of Any Multi-Drug Resistant Organisms: None Reported Past Surgical History: Orthopedic Surgery Additional Past Surgical History / Comment(s): Right knee surgery and salma placed in left femur, 3 surgeries on his eyes. Past Anesthesia/Blood Transfusion Reactions: No Reported Reaction Past Psychological History: Anxiety, Bipolar, Depression, Schizoaffective Disorder Smoking Status: Current every day smoker Past Alcohol Use History: Abuse, Daily, Heavy Past Drug Use History: None Reported - Past Family History Mother Additional Family Medical History / Comment(s): Mother at age 36 from motor vehicle accident. His father is also past but does not know the cause or his age. Patient has 3 brothers that are apparently without major medical problems. General Exam Limitations: no limitations General appearance: alert, in no apparent distress Head exam: Present: atraumatic, normocephalic, normal inspection Eye exam: Present: normal appearance, PERRL, EOMI. Absent: scleral icterus, conjunctival injection, periorbital swelling ENT exam: Present: normal oropharynx, mucous membranes moist, TM's normal bilaterally, normal external ear exam. Absent: normal exam (An abrasion noted on the bridge of the nose, no ecchymosis no septal hematoma or deformity) Neck exam: Present: normal inspection, full ROM. Absent: tenderness, meningismus, lymphadenopathy Respiratory exam: Present: normal lung sounds bilaterally. Absent: respiratory distress, wheezes, rales, rhonchi, stridor Cardiovascular Exam: Present: regular rate, normal rhythm, normal heart sounds. Absent: systolic murmur, diastolic murmur, rubs, gallop, clicks Neurological exam: Present: alert, oriented X3, CN II-XII intact, reflexes normal. Absent: motor sensory deficit Skin exam: Present: warm, dry, intact, normal color. Absent: rash Course Vital Signs 06/15/18 06/15/18 06/15/18 12:03 13:41 16:56 Temperature 97.9 F Pulse Rate 81 72 70 Respiratory 18 16 16 Rate Blood Pressure 127/82 102/64 109/71 O2 Sat by Pulse 94 L 94 L 93 L Oximetry Medical Decision Making - Medical Decision Making 52-year-old male presented to emergency department for alcohol intoxication. He did have a fall CT was obtained that showed no acute findings. Patient is sober at this time. Patient is able to ambulate with no difficulty. Patient will be discharged. Disposition Clinical Impression: Alcohol abuse, Alcohol intoxication, Facial abrasion, Fall Disposition: HOME SELF-CARE Condition: Stable Instructions: Alcohol Intoxication (ED) Additional Instructions: Please return to the Emergency Department if symptoms worsen or any other concerns. Is patient prescribed a controlled substance at d/c from ED?: No Referrals: Kermit Partida MD [Primary Care Provider] - 1-2 days Time of Disposition: 18:53
[2018-06-15 13:42] VITALS: RESP 16
--- NOTE | 2018-06-15 14:14 | CT ---
EXAMINATION TYPE: CT brain nikolai powell con DATE OF EXAM: 06/15/2018 COMPARISON: 06/08/2018 HISTORY: 52-year-old male with pain after Fall, head injury, alcohol intoxication CT DLP: 1651 mGycm Automated exposure control for dose reduction was used. Technique: Examination of the head was done in axial plane without intravenous contrast. Coronal and sagittal reconstructions performed. CT of the cervical spine was obtained in axial plane without intravenous injection of contrast mater ial. Coronal and sagittal reformatted images were obtained from the axial views for evaluation of f ractures, spinal alignment and canal. FINDINGS: Head: There is no evidence of acute intracranial hemorrhage, acute ischemic changes, mass, mass-effect, or extra-axial fluid collection. There is no effacement of cerebral sulci or basal subarachnoid cister ns. Stable moderate hydrocephalus. There is no midline shift. Hammer-white matter distinction is prese rved. No calvarial fracture. Paranasal sinuses and mastoid air cells are well pneumatized. Cervical spine: No craniocervical junction abnormality, predental space widening, or prevertebral soft tissue swellin g. Preserved alignment of the cervical spine with interbody lordosis from C4 through C7 levels. Moderate degenerative disc disease below the fusion at C7-T1. Posterior osteophytic ridging contributing to v lesley minimal mild narrowing of the spinal canal. Scattered facet and uncovertebral joint arthropathy contributing to variable [id number] neurofo raminal stenoses. No acute fracture of the cervical spine. Some bony hypertrophic changes suggesting old injury at the right AC joint and coracoclavicular ligaments. The alignment of the cervical spine is normal on coronal and reformatted images. There is no cranial vertebral abnormality. Fracture of the cervical spine is not seen. . There is no evidence of focal d isk herniation. There is no central spinal canal stenosis. Sagittal and coronal reformatted images confirm above findings. COMBINED IMPRESSION: 1. Stable moderate hydrocephalus; correlate for possible component of NPH. No acute intracranial abno rmality seen. 2. No acute fracture or malalignment of the cervical spine. Stable interbody fusion changes from C4 t hrough C7.
[2018-06-15 19:08] VITALS: BP 135/70; PULSE 79; TEMP 98.7
== END 2018-06-15 19:07 | disposition home or self-care (01) ==
LOC: EC 11:50
DX: S00.31XA Abrasion of nose, initial encounter (principal); F10.129 Alcohol abuse with intoxication, unspecified; F25.9 Schizoaffective disorder, unspecified; F31.9 Bipolar disorder, unspecified; F41.9 Anxiety disorder, unspecified; F17.200 Nicotine dependence, unspecified, uncomplicated; Z79.899 Other long term (current) drug therapy; W19.XXXA Unspecified fall, initial encounter
CPT/HCPCS: 70450; 72125; 82075; 99284; 99285

== ENCOUNTER 2018-06-15 19:39 | Emergency (ER) | payer OTHER ==
--- NOTE | 2018-06-15 20:03 | ED ---
Psych HPI - General Chief Complaint: Psychiatric Symptoms Stated Complaint: suicidal Time Seen by Provider: 06/15/18 19:55 Source: patient, RN notes reviewed Mode of arrival: wheelchair Limitations: no limitations - History of Present Illness Initial Comments: This is a 52-year-old male presents emergency department for psychiatric evaluation. Patient was just discharged from the hospital for alcohol intoxication of fall. He did have a CT which negative for acute intracranial bleed or acute abnormality. Patient was not suicidal at this time states that he is now suicidal and wants to jump in front of the car because he has no place to live currently. Patient states that he does drink alcohol on a regular basis. Patient denies any homicidal ideation. Denies any illicit drug use. - Related Data Home Medications Medication Instructions Recorded Confirmed FLUoxetine HCL [PROzac] 20 mg PO DAILY 06/06/18 06/14/18 Gabapentin 800 mg PO TID 06/06/18 06/14/18 Mirtazapine [Remeron] 30 mg PO HS 06/06/18 06/14/18 Naltrexone HCl [Revia] 50 mg PO DAILY 06/06/18 06/14/18 QUEtiapine FUMARATE [SEROquel] 300 mg PO HS 06/06/18 06/14/18 Allergies Allergy/AdvReac Type Severity Reaction Status Date / Time No Known Allergies Allergy Verified 06/15/18 12:08 Review of Systems ROS Statement: Those systems with pertinent positive or pertinent negative responses have been documented in the HPI. ROS Other: All systems not noted in ROS Statement are negative. Past Medical History Past Medical History: Hypertension Additional Past Medical History / Comment(s): etoh History of Any Multi-Drug Resistant Organisms: None Reported Past Surgical History: Orthopedic Surgery Additional Past Surgical History / Comment(s): Right knee surgery and salma placed in left femur, 3 surgeries on his eyes. Past Anesthesia/Blood Transfusion Reactions: No Reported Reaction Past Psychological History: Anxiety, Bipolar, Depression, Schizoaffective Disorder Smoking Status: Current every day smoker Past Alcohol Use History: Abuse, Daily, Heavy Past Drug Use History: None Reported - Past Family History Mother Additional Family Medical History / Comment(s): Mother at age 36 from motor vehicle accident. His father is also past but does not know the cause or his age. Patient has 3 brothers that are apparently without major medical problems. General Exam Limitations: no limitations General appearance: alert, in no apparent distress Head exam: Present: atraumatic, normocephalic, normal inspection Eye exam: Present: normal appearance, PERRL, EOMI. Absent: scleral icterus, conjunctival injection, periorbital swelling ENT exam: Present: normal oropharynx, mucous membranes moist, TM's normal bilaterally, normal external ear exam. Absent: normal exam (Abrasion over the nasal bridge noted) Neck exam: Present: normal inspection, full ROM. Absent: tenderness, meningismus, lymphadenopathy Respiratory exam: Present: normal lung sounds bilaterally. Absent: respiratory distress, wheezes, rales, rhonchi, stridor Cardiovascular Exam: Present: regular rate, normal rhythm, normal heart sounds. Absent: systolic murmur, diastolic murmur, rubs, gallop, clicks Neurological exam: Present: alert, oriented X3, CN II-XII intact Psychiatric exam: Present: normal affect, normal mood Skin exam: Present: warm, dry, intact, normal color. Absent: rash Course Vital Signs 06/15/18 19:54 Temperature 98.4 F Pulse Rate 108 H Respiratory 18 Rate Blood Pressure 97/68 O2 Sat by Pulse 97 Oximetry Medical Decision Making - Medical Decision Making 52-year-old male present emergency Department for psychiatric evaluation. Patient was evaluated case discussed with psychiatrist they do not feel he needs to be admitted. Patient will be discharged return parameters were discussed. Disposition Clinical Impression: Alcohol abuse Disposition: HOME SELF-CARE Condition: Stable Instructions: Abuse of Alcohol (ED) Additional Instructions: Please return to the Emergency Department if symptoms worsen or any other concerns. Is patient prescribed a controlled substance at d/c from ED?: No Referrals: Kermit Partida MD [Primary Care Provider] - 1-2 days Time of Disposition: 22:10
[2018-06-15 23:19] VITALS: BP 115/60; PULSE 99; RESP 16; TEMP 98.6
== END 2018-06-15 23:17 | disposition home or self-care (01) ==
LOC: EC 19:39
DX: F10.10 Alcohol abuse, uncomplicated (principal); S00.31XA Abrasion of nose, initial encounter; R45.851 Suicidal ideations; F31.9 Bipolar disorder, unspecified; F41.9 Anxiety disorder, unspecified; F17.200 Nicotine dependence, unspecified, uncomplicated; Z79.899 Other long term (current) drug therapy; X58.XXXA Exposure to other specified factors, initial encounter
CPT/HCPCS: 82075; 99285

== ENCOUNTER 2018-06-23 20:59 | Observation (INO) | payer OTHER ==
--- NOTE | 2018-06-23 21:53 | ED ---
General Adult HPI - General Chief complaint: Psychiatric Symptoms Stated complaint: Petition Time Seen by Provider: 06/23/18 21:19 Source: patient, police Mode of arrival: ambulatory Limitations: no limitations - History of Present Illness Initial comments: Patient is a 52-year-old male presenting for chest pain and suicidal ideation. He currently states that he is homeless and that he has been coughing for an unknown period of time. He states that the chest pain started after he was coughing and the pain feels a sharp sensation radiating upwards. He admits to some nausea but no vomiting or diarrhea and states that he is abusing alcohol but no drugs. He admits to chills but no fevers or abdominal pain. - Related Data Home Medications Medication Instructions Recorded Confirmed FLUoxetine HCL [PROzac] 20 mg PO DAILY 06/06/18 06/14/18 Gabapentin 800 mg PO TID 06/06/18 06/14/18 Mirtazapine [Remeron] 30 mg PO HS 06/06/18 06/14/18 Naltrexone HCl [Revia] 50 mg PO DAILY 06/06/18 06/14/18 QUEtiapine FUMARATE [SEROquel] 300 mg PO HS 06/06/18 06/14/18 Allergies Allergy/AdvReac Type Severity Reaction Status Date / Time No Known Allergies Allergy Verified 06/23/18 21:06 Review of Systems ROS Statement: Those systems with pertinent positive or pertinent negative responses have been documented in the HPI. Constitutional: Negative for chills, fatigue and fever. HENT: Negative for congestion. Respiratory: Negative for chest tightness, shortness of breath and wheezing. Positive for cough Cardiovascular: Positive for chest pain and negative palpitations. Gastrointestinal: Negative for abdominal pain. Negative for abdominal distention , diarrhea, nausea and vomiting. Genitourinary: Negative for dysuria. Musculoskeletal: Negative for back pain, neck pain and neck stiffness. Skin: Negative for color change. Neurological: Negative for dizziness, speech difficulty, weakness and light- headedness. Psychiatric/Behavioral: Negative for agitation and confusion. Negative for anxiety. Positive for suicidal ideation ROS Other: All systems not noted in ROS Statement are negative. Past Medical History Past Medical History: Hypertension Additional Past Medical History / Comment(s): etoh History of Any Multi-Drug Resistant Organisms: None Reported Past Surgical History: Orthopedic Surgery Additional Past Surgical History / Comment(s): Right knee surgery and salma placed in left femur, 3 surgeries on his eyes. Past Anesthesia/Blood Transfusion Reactions: No Reported Reaction Past Psychological History: Anxiety, Bipolar, Depression, Schizoaffective Disorder Smoking Status: Current every day smoker Past Alcohol Use History: Abuse, Daily, Heavy Past Drug Use History: None Reported - Past Family History Mother Additional Family Medical History / Comment(s): Mother at age 36 from motor vehicle accident. His father is also past but does not know the cause or his age. Patient has 3 brothers that are apparently without major medical problems. General Exam - General Exam Comments Initial Comments: Constitutional: Pt is oriented to person, place, and time. Pt appears well- developed and well-nourished. No distress. HENT: Head: Normocephalic and atraumatic. Eyes: EOM are normal. Neck: Normal range of motion. Neck supple. Cardiovascular: Normal rate, regular rhythm, S1 normal, S2 normal and normal heart sounds. Exam reveals no gallop and no friction rub. No murmur heard. Pulmonary/Chest: Effort normal and breath sounds normal. No tachypnea and no bradypnea. No respiratory distress. No wheezes or rales noted. Abdominal: Soft. Bowel sounds are normal. Pt exhibits no shifting dullness, no distension, no pulsatile liver, no fluid wave, no abdominal bruit and no ascites. There is no tenderness. There is no rigidity, no rebound, no guarding, no tenderness at McBurney's point and negative Thomason's sign. Musculoskeletal: Normal range of motion. Neurological: Pt is alert and oriented to person, place, and time. No cranial nerve deficit. Skin: Skin is warm and dry. No rash noted. Pt is not diaphoretic. No erythema. No pallor. Psychiatric: Pt has a normal mood and affect. Pt behavior is normal. Patient expresses suicidal ideation with a plan. Patient denies any hallucinations Limitations: no limitations Course Vital Signs 06/23/18 21:04 Temperature 98.7 F Pulse Rate 81 Respiratory 16 Rate Blood Pressure 160/87 O2 Sat by Pulse 98 Oximetry EKG Findings - EKG Comments: EKG Findings:: EKG shows normal sinus rhythm with a rate of 83 bpm, WA interval 160, QRS 72, QTC 611. Medical Decision Making - Medical Decision Making Cardiac evaluation revealed that initial troponin was negative and chest x-ray showed no significant ST depressions or elevations. Laboratory studies also did show mild leukocytosis but there is no evidence of active infection and electrolytes were relatively within normal limits. However, because the EKG showed a QTC of 611, it was felt that the patient could not be safely cleared medically until further evaluation is completed. Explained all labs and diagnostic test results and that we will admit patient to hospital. Pt is agreeable to plan and case has been discussed with Dr. Partida and they agree to accept the pt. - Lab Data Result diagrams: 06/23/18 22:10 06/23/18 22:10 Lab Results 06/23/18 06/23/18 06/23/18 Range/Units 21:21 22:10 22:10 WBC 14.0 H (3.8-10.6) k/uL RBC 5.40 (4.30-5.90) m/uL Hgb 15.7 (13.0-17.5) gm/dL Hct 48.0 (39.0-53.0) % MCV 88.8 (80.0-100.0) fL MCH 29.0 (25.0-35.0) pg MCHC 32.6 (31.0-37.0) g/dL RDW 15.8 H (11.5-15.5) % Plt Count 301 (150-450) k/uL Neutrophils % 80 % Lymphocytes % 10 % Monocytes % 8 % Eosinophils % 1 % Basophils % 0 % Neutrophils # 11.2 H (1.3-7.7) k/uL Lymphocytes # 1.4 (1.0-4.8) k/uL Monocytes # 1.1 H (0-1.0) k/uL Eosinophils # 0.1 (0-0.7) k/uL Basophils # 0.0 (0-0.2) k/uL PT (9.0-12.0) sec INR (<1.2) APTT (22.0-30.0) sec Sodium 138 (137-145) mmol/L Potassium 3.9 (3.5-5.1) mmol/L Chloride 95 L (98-107) mmol/L Carbon Dioxide 27 (22-30) mmol/L Anion Gap 16 mmol/L BUN 4 L (9-20) mg/dL Creatinine 0.59 L (0.66-1.25) mg/dL Est GFR (CKD-EPI)AfAm >90 (>60 ml/min/1.73 sqM) Est GFR (CKD-EPI)NonAf >90 (>60 ml/min/1.73 sqM) Glucose 83 (74-99) mg/dL Calcium 9.4 (8.4-10.2) mg/dL Magnesium 2.0 (1.6-2.3) mg/dL Troponin I (0.000-0.034) ng/mL Urine Opiates Screen Not Detected (NotDetected) Ur Oxycodone Screen Not Detected (NotDetected) Urine Methadone Screen Not Detected (NotDetected) Ur Propoxyphene Screen Not Detected (NotDetected) Ur Barbiturates Screen Not Detected (NotDetected) U Tricyclic Antidepress Not Detected (NotDetected) Ur Phencyclidine Scrn Not Detected (NotDetected) Ur Amphetamines Screen Not Detected (NotDetected) U Methamphetamines Scrn Not Detected (NotDetected) U Benzodiazepines Scrn Not Detected (NotDetected) Urine Cocaine Screen Not Detected (NotDetected) U Marijuana (THC) Screen Detected H (NotDetected) 06/23/18 06/23/18 Range/Units 22:10 22:10 WBC (3.8-10.6) k/uL RBC (4.30-5.90) m/uL Hgb (13.0-17.5) gm/dL Hct (39.0-53.0) % MCV (80.0-100.0) fL MCH (25.0-35.0) pg MCHC (31.0-37.0) g/dL RDW (11.5-15.5) % Plt Count (150-450) k/uL Neutrophils % % Lymphocytes % % Monocytes % % Eosinophils % % Basophils % % Neutrophils # (1.3-7.7) k/uL Lymphocytes # (1.0-4.8) k/uL Monocytes # (0-1.0) k/uL Eosinophils # (0-0.7) k/uL Basophils # (0-0.2) k/uL PT 9.7 (9.0-12.0) sec INR 1.0 (<1.2) APTT 22.7 (22.0-30.0) sec Sodium (137-145) mmol/L Potassium (3.5-5.1) mmol/L Chloride (98-107) mmol/L Carbon Dioxide (22-30) mmol/L Anion Gap mmol/L BUN (9-20) mg/dL Creatinine (0.66-1.25) mg/dL Est GFR (CKD-EPI)AfAm (>60 ml/min/1.73 sqM) Est GFR (CKD-EPI)NonAf (>60 ml/min/1.73 sqM) Glucose (74-99) mg/dL Calcium (8.4-10.2) mg/dL Magnesium (1.6-2.3) mg/dL Troponin I <0.012 (0.000-0.034) ng/mL Urine Opiates Screen (NotDetected) Ur Oxycodone Screen (NotDetected) Urine Methadone Screen (NotDetected) Ur Propoxyphene Screen (NotDetected) Ur Barbiturates Screen (NotDetected) U Tricyclic Antidepress (NotDetected) Ur Phencyclidine Scrn (NotDetected) Ur Amphetamines Screen (NotDetected) U Methamphetamines Scrn (NotDetected) U Benzodiazepines Scrn (NotDetected) Urine Cocaine Screen (NotDetected) U Marijuana (THC) Screen (NotDetected) Disposition Clinical Impression: Chest pain, Prolonged QT interval Disposition: ADMITTED IP TO THIS [facility] Condition: Good Referrals: Kermit Partida MD [Primary Care Provider] - 1-2 days Decision to Admit Reason: Admit from EC Decision Date: 06/24/18 Decision Time: 00:18
[2018-06-23 22:12] LABS: Amphetamine Screen,Urine Not Detected (NotDetected); Barbiturate Screen,Urine Not Detected (NotDetected); Benzodiazepines Screen,Urine Not Detected (NotDetected); Cocaine Screen,Urine Not Detected (NotDetected); Methadone Screen, Urine Not Detected (NotDetected); Opiate Screen,Urine Not Detected (NotDetected); Oxycodone Screen, Urine Not Detected (NotDetected); Phencyclidine Screen,Urine Not Detected (NotDetected); Tricyclic Antidepressant,Urine Not Detected (NotDetected); Urn Cannabinoid Scrn Detected (NotDetected)
--- NOTE | 2018-06-23 22:18 | XR ---
EXAMINATION TYPE: XR chest 2V DATE OF EXAM: 06/23/2018 COMPARISON: 04/26/2018 HISTORY: Chest pain TECHNIQUE: Frontal and lateral views of the chest are obtained. FINDINGS: Heart and mediastinum are normal. Lungs are clear. Diaphragm is normal. Bony thorax appear s normal. IMPRESSION: Normal chest. No change.
[2018-06-23 22:34] LABS: Basophils % (A) 0 %; Eosinophils # (A) 0.1 k/uL (0-0.7); Eosinophils % (A) 1 %; HGB 15.7 gm/dL (13.0-17.5); Lymphocytes # (A) 1.4 k/uL (1.0-4.8); Lymphocytes % (A) 10 %; MCHC 32.6 g/dL (31.0-37.0); MCV 88.8 fL (80.0-100.0); Monocytes # (A) 1.1 k/uL (0-1.0); Monocytes % (A) 8 %; Neutrophils # (A) 11.2 k/uL (1.3-7.7); Neutrophils % (A) 80 %; Platelet Count 301 k/uL (150-450); RDW 15.8 % (11.5-15.5)
[2018-06-23 22:42] LABS: Partial Thromboplastin Time 22.7 sec (22.0-30.0); Prothrombin Time 9.7 sec (9.0-12.0)
[2018-06-23 22:47] LABS: Anion Gap 16 mmol/L; Blood Urea Nitrogen 4 mg/dL (9-20); Calcium 9.4 mg/dL (8.4-10.2); Carbon Dioxide 27 mmol/L (22-30); Chloride 95 mmol/L (98-107); Glucose 83 mg/dL (74-99); Potassium 3.9 mmol/L (3.5-5.1); Sodium 138 mmol/L (137-145)
[2018-06-24] MEDS ORDERED: NALOXONE 0.4 MG/ML 1 ML VIAL IV PRN (00:20)
[2018-06-24] MEDS ORDERED: THIAMINE 100 MG/ML 2 ML VIAL IM STA (00:31)
[2018-06-24] MEDS ORDERED: LORazepam 2 MG/ML INJ IV PRN ×2 (00:31)
[2018-06-24 01:41] VITALS: BMI 21.4
--- NOTE | 2018-06-24 09:31 | P.CRDCN ---
History of Present Illness Consult date: 06/24/18 Requesting physician: Kermit Partida Consult reason: chest pain Chief complaint: Chest pain History of present illness: This is a 52-year-old gentleman who is currently homeless, he has history of hypertension, no diabetes, no hyperlipidemia, smokes approximately a pack of cigarettes per day, and drinks 7-8 alcoholic drinks per day when he can afford it. Patient also has had admissions to the hospital with mental health issues and depression. Patient presents to the hospital on this occasion with symptoms of chest tightness and heaviness which she states is intermittent, lasting 5-10 minutes each time he gets it. It can come with rest or with exertion according to the patient. He denies any associated symptoms with this other than the fact he states he gets diaphoretic, but the patient states he has intermittent episodes of diaphoresis. He is unsure of his family history. The patient was also having suicidal ideations and for this reason has a sitter at the bedside. Cardiology consultation was requested because of the chest discomfort. Chest x-ray on admission was normal. EKG shows a normal sinus rhythm with no acute changes noted, patient does have a prolonged QT interval, QTc measuring 611. Patient does take Remeron, Neurontin, Prozac, Seroquel, and ReVia at home. Temperature on arrival here 98.7, he has been running a low- grade temperature since admission up to 100.2. Blood pressure on admission 160/ 80 with a heart rate in the 100-120 range. Continues to have low-grade temperature of 99.5 this morning. Blood cell count 14.0, hemoglobin 15.7, platelet count 301. Sodium 138, potassium 3.9, BUN 4, creatinine 0.5. Magnesium 2.0, troponins negative 2. Drug screen positive for marijuana. Time of my examination this morning, patient denies any chest discomfort, he is quite diaphoretic. Past Medical History Past Medical History: Chest Pain / Angina, Hypertension Additional Past Medical History / Comment(s): ETOH History of Any Multi-Drug Resistant Organisms: None Reported Past Surgical History: Orthopedic Surgery Additional Past Surgical History / Comment(s): Right knee surgery and salma placed in left femur, 3 surgeries on his eyes. Past Anesthesia/Blood Transfusion Reactions: No Reported Reaction Past Psychological History: Anxiety, Bipolar, Depression, Schizoaffective Disorder Additional Psychological History / Comment(s): pt states he hears voices in his head, and they tell him to harm himself and sometimes others. Smoking Status: Current every day smoker Past Alcohol Use History: Abuse, Daily, Heavy Additional Past Alcohol Use History / Comment(s): Patient states that he is a smoker one pack per day for 40 years. He states he smokes marijuana when he can get it. He drinks 6/7 beers a day. Patient is single and does not have any children. Patient is unemployment, homeless, and he is trying to get disability. Past Drug Use History: None Reported - Past Family History Mother Additional Family Medical History / Comment(s): Mother at age 36 from motor vehicle accident. His father is also past but does not know the cause or his age. Patient has 3 brothers that are apparently without major medical problems. Medications and Allergies Home Medications Medication Instructions Recorded Confirmed Type FLUoxetine HCL [PROzac] 20 mg PO DAILY 06/06/18 06/24/18 History Gabapentin 800 mg PO TID 06/06/18 06/24/18 History Mirtazapine [Remeron] 30 mg PO HS 06/06/18 06/24/18 History Naltrexone HCl [Revia] 50 mg PO DAILY 06/06/18 06/24/18 History QUEtiapine FUMARATE [SEROquel] 300 mg PO HS 06/06/18 06/24/18 History Allergies Allergy/AdvReac Type Severity Reaction Status Date / Time No Known Allergies Allergy Verified 06/23/18 21:06 Physical Exam Vitals: Vital Signs Temp Pulse Pulse Resp BP BP Pulse Ox 06/24/18 08:50 99.5 F 108 H 18 133/75 95 06/24/18 03:58 99.1 F 123 H 17 133/68 94 L 06/24/18 00:59 100.2 F H 118 H 18 129/97 96 06/24/18 00:51 100.6 F H 109 H 18 139/82 95 06/23/18 21:04 98.7 F 81 16 160/87 98 Intake and Output 06/23/18 06/24/18 06/24/18 22:59 06:59 14:59 Intake Total 480 240 Balance 480 240 Intake: Oral 480 240 Other: Voiding Method Toilet Weight 68.039 kg 68 kg PHYSICAL EXAMINATION: GENERAL: 52-year-old gentleman in no acute distress at the time of my examination HEENT: Head is atraumatic, normocephalic. Pupils equal, round. Sclera anicteric. Conjunctiva are clear. Mucous membranes of the mouth are moist. Neck is supple. There is no elevated jugular venous pressure. No carotid bruit is heard. HEART EXAMINATION: Heart S1 and S2 tachycardic CHEST EXAMINATION: Lungs are clear to auscultation and precussion. No chest wall tenderness is noted on palpation or with deep breathing. ABDOMEN: Soft, nontender. Bowel sounds are heard. No organomegaly noted. EXTREMITIES: 2+ peripheral pulses with no evidence of peripheral edema and no calf tenderness noted. NEUROLOGIC patient is awake, alert and oriented ?-3. . Results 06/23/18 22:10 06/23/18 22:10 Cardiac Enzymes 06/23/18 06/24/18 Range/Units 22:10 03:59 Troponin I <0.012 <0.012 (0.000-0.034) ng/mL Coagulation 06/23/18 Range/Units 22:10 PT 9.7 (9.0-12.0) sec APTT 22.7 (22.0-30.0) sec CBC 06/23/18 Range/Units 22:10 WBC 14.0 H (3.8-10.6) k/uL RBC 5.40 (4.30-5.90) m/uL Hgb 15.7 (13.0-17.5) gm/dL Hct 48.0 (39.0-53.0) % Plt Count 301 (150-450) k/uL Comprehensive Metabolic Panel 06/23/18 Range/Units 22:10 Sodium 138 (137-145) mmol/L Potassium 3.9 (3.5-5.1) mmol/L Chloride 95 L (98-107) mmol/L Carbon Dioxide 27 (22-30) mmol/L BUN 4 L (9-20) mg/dL Creatinine 0.59 L (0.66-1.25) mg/dL Glucose 83 (74-99) mg/dL Calcium 9.4 (8.4-10.2) mg/dL Current Medications Generic Name Dose Route Start Last Admin Trade Name Freq PRN Reason Stop Dose Admin Lorazepam 1 mg 06/24/18 00:31 Ativan IV Q2HR PRN CIWA 8 or 9 Lorazepam 1 mg 06/24/18 00:31 Ativan IV Q1HR PRN CIWA 10 to 15 Lorazepam 2 mg 06/24/18 00:31 Ativan IV 06/26/18 00:31 Q10M PRN CIWA 16 or higher Naloxone HCl 0.2 mg 06/24/18 00:20 Narcan IV Q2M PRN Opioid Reversal Thiamine HCl 100 mg 06/24/18 12:00 Vitamin B-1 PO BID@1200,1700 AIDEN Intake and Output 06/23/18 06/24/18 06/24/18 22:59 06:59 14:59 Intake Total 480 240 Balance 480 240 Intake: Oral 480 240 Other: Voiding Method Toilet Weight 68.039 kg 68 kg 06/23/18 22:10 06/23/18 22:10 EKG Interpretations (text) EKG on admission shows normal sinus rhythm with a prolonged QT interval Assessment and Plan Plan: Assessment and plan #1 symptoms of chest discomfort, atypical for acute coronary syndrome. Troponins negative 2. EKG shows normal sinus rhythm with prolonged QT interval #2 fever of unknown origin #3 history of hypertension, not on any medications for this #4 nicotine dependence #5 EtOH use, history of alcoholism with several admissions to the emergency room for this #6 bipolar depression and suicidal ideation Plan Will obtain an echocardiogram with Doppler study. Obtain a third troponin as well. Repeat EKG this morning. Recommend patient undergo stress echocardiographic study today. Psychiatry and Social work has also been consulted. Further recommendations to follow. DNP note has been reviewed, I agree with a documented findings and plan of care. Patient was seen and examined.
[2018-06-24] MEDS: THIAMINE 100 MG TAB PO SCH ×2 (12:11→17:13)
--- NOTE | 2018-06-24 12:59 | ECHOF ---
Referral Reason:chest pain MEASUREMENTS -------- HEIGHT: 177.8 cm WEIGHT: 67.6 kg BP: 133/75 IVSd: 0.9 cm (0.6 - 1.1) LVIDd: 3.4 cm (3.9 - 5.3) LVPWd: 0.9 cm (0.6 - 1.1) IVSs: 1.2 cm LVIDs: 2.2 cm LVPWs: 1.1 cm LAESV Index (A-L): 11.34 ml/m Ao Diam: 3.6 cm (2.0 - 3.7) AV Cusp: 2.1 cm (1.5 - 2.6) LA Diam: 1.9 cm (2.7 - 3.8) MV E Sumanth: 0.56 m/s MV DecT: 386 ms MV A Sumanth: 0.77 m/s MV E/A Ratio: 0.72 RAP: 5.00 mmHg RVSP: 15.35 mmHg FINDINGS -------- Sinus rhythm. This was a technically good study. The left ventricular size is normal. Left ventricular wall thickness is normal. Overall left vent ricular systolic function is low-normal with, an EF between 50 - 55 %. The right ventricle is normal in size and function. Normal LA size by volume 22+/-6 ml/m2. The right atrium is normal in size. There is mild aortic valve sclerosis. There is no evidence of aortic regurgitation. There is no e vidence of aortic stenosis. The mitral valve leaflets are mildly thickened. There is trace to mild mitral regurgitation. Trace tricuspid regurgitation present. Right ventricular systolic pressure is normal at < 35 mmHg. There is no evidence of pulmonary hypertension. The pulmonic valve was not well visualized. The aortic root size is normal. Normal inferior vena cava with normal inspiratory collapse consistent with estimated right atrial pre ssure of 5 mmHg. There is no pericardial effusion. CONCLUSIONS -------- 1. Sinus rhythm. 2. This was a technically good study. 3. The left ventricular size is normal. 4. Left ventricular wall thickness is normal. 5. Overall left ventricular systolic function is low-normal with, an EF between 50 - 55 %. 6. Normal LA size by volume 22+/-6 ml/m2. 7. There is mild aortic valve sclerosis. 8. The mitral valve leaflets are mildly thickened. 9. There is trace to mild mitral regurgitation. 10. Trace tricuspid regurgitation present. 11. Right ventricular systolic pressure is normal at < 35 mmHg. 12. There is no evidence of pulmonary hypertension. 13. The pulmonic valve was not well visualized. 14. The aortic root size is normal. 15. There is no pericardial effusion. CORPORATE INTERN: Jaspreet Posada RDCS
--- NOTE | 2018-06-24 13:57 | P.CN ---
Psychiatric Consult - . Consult date: 06/24/18 Consult:: IDENTIFYING DATA: The patient is a 52-year-old single male admitted to medicine service for evaluation of chest pain. The hospitalist consult to psychiatry for evaluation of suicidal ideation. HISTORY OF PRESENT ILLNESS: I reviewed the medical record and interviewed the patient. He was minimally cooperative with the interview. He responded to several questions with phrases such as "I don't know", "I don't remember", "for a while" or "maybe a couple months ago." He complained that he is homeless, has no income and has no job. He has been "sleeping on the streets" and this lifestyle has become more uncomfortable with the colder temperatures. He could not go to a longterm because his chronic and ongoing alcohol use. He stated he drinks every day usually "beer and liquor" as much as he could afford. In response to questions about how long he has been homeless he replied "for a while ... Maybe couple months or so." He complained of feeling depressed about his social problems, continue drinking and estrangement from his family. He described thoughts of suicide but denied intent or plan. He thought about "stepping in front of traffic" but added that he "would not do it ... I tried it a while ago and I only brought by leg." He is angry with his brothers for forcing him to leave the family home after his father . He feels bad about his social problems but denied feelings of self reproach, guilt and did not ruminate about past errors. He complained of difficulty sleeping that he attributes to the uncomfortable circumstances on sleeping in the alley ways. He denied persistent anxiety that interferes with his ability to function. He denied symptoms suggestive of panic attack, obsessions or compulsions. He denied auditory, visual or olfactory hallucinations, he denied other symptoms psychosis such as ideas reference, thought insertion etc. He denied use of other drugs to get high, help him sleep or change his mood. However, his UDS was positive for marijuana. PAST PSYCHIATRIC HISTORY: He is had multiple admissions to the psychiatric unit the last was in August 2017. Since last psychiatric admission sees had 22 presentations to the emergency room for various complaints that usually involved chronic alcohol use. He has been involved with community mental health but alleged that he could not remember when he last met with his therapist. His diagnosis of present the patient and alcohol induced depressive disorder and alcohol use disorder severe. PAST MEDICAL HISTORY: He has a past history of angina and hypertension. ALLERGIES: No known ALLERGIES. SUBSTANCE USE HISTORY: He has a history of an alcohol use disorder and his only period of abstinence occurred while he was attending an alcohol/substance abuse treatment program. He was unable to identify a period of abstinence outside of a treatment program. He smokes marijuana but denied use of other drugs. He was in [place] rehabilitation program "a while ago". FAMILY PSYCHIATRIC/SUBSTANCE USE HISTORY: He is unaware of a family history of psychiatric or substance use problems. SOCIAL HISTORY: His born and raised in [place] to an intact family. His parents are . He has 3 brothers who has no contact with him. He quit school in 11th grade but obtained his GED. 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 He last worked "many years ago". He has no income. He is chronically homeless. He is single and has no children. He has had multiple misdemeanor charges primarily for alcohol related offenses. He has been incarcerated for alcohol related offenses. He is currently in substance abuse court and the court has issues up and walk for his arrest for failure to keep an appointment. MENTAL STATUS EXAM: He presented as a frail appearing middle-aged male who was pleasant on approach. He made eye contact and attended to the interview. He had poor dentition but no other distinguishing features. He had no prominent physical abnormalities. He had a blunted facial expression. He is alert and oriented to person, place and time. He showed psychomotor retardation but no abnormal movements. Her speech was spontaneous with decreased rate and rhythm. His affect was blunted but stable and appropriate. He described thoughts of suicide but denied intent or plan. He expressed feelings of hopelessness, helplessness related to his chronic social problems including his chronic homelessness. He did not express phobias, ideas reference , paranoid ideation or delusions. His thinking was concrete but his associations were coherent, logical and goal directed. He denied hallucinations and did not appear to be responding to internal stimuli. IMPRESSIONS: He is a 52-year-old single male who has a history of an alcohol use disorder and multiple and severe social problems including homelessness, lack of income and lack of employment. He is had multiple admissions psychiatric unit and multiple presentations to the emergency room related to his chronic alcohol use. He is distressed over his chronic social problems. He alleged that he is unable to control his alcohol use outside the treatment program and that his alcohol use is preventing him from using community homeless resources. He should be referred to a residential substance abuse treatment program when he is medically stable. DIAGNOSIS: Alcohol use disorder severe, alcohol induced mood disorder, multiple social problems PLAN: There is no indication for transfer this psychiatric unit at this time. Social work to assist with referral to a residential substance abuse treatment program. Thank you for this consult. 06/24/18 13:00
[2018-06-24] MEDS: LORazepam 2 MG/ML INJ IV PRN (15:40)
[2018-06-24] MEDS: GABAPENTIN 400 MG CAP PO SCH ×2 (15:42→20:40)
--- NOTE | 2018-06-24 18:59 | HP ---
HISTORY AND PHYSICAL CHIEF COMPLAINT: Acute alcohol intoxication, depression with suicidal thoughts and prolonged QT interval. HISTORY OF PRESENT ILLNESS: This is another of many admissions for this 52-year-old white male. He is an alcoholic. He is brought to the emergency room intoxicated and talking about killing himself. His QT interval was prolonged without reason. He was admitted for observation. To be seen by Cardiology. REVIEW OF SYSTEMS: He has strabismus. He has had no other neurologic complaints. He has had no shortness of breath, chest pain, cough, hemoptysis, hypertension, murmurs, rheumatic fever, abdominal pain, vomiting, nausea, melena, hematochezia, jaundice, hepatitis, cirrhosis, hematuria frequency, urgency and dysuria, renal failure, diabetes, etc. Past medical history, family history and personal and social histories are unremarkable and otherwise noncontributory. He states that he tripped. He is supposed to be on Remeron and Seroquel, but has not been on for some time. He is not allergic to anything. The surgery he has had procedure on his left knee. SOCIAL HISTORY: He drinks heavily and smokes a pack of cigarettes a day. PHYSICAL EXAMINATION: Blood pressure is 129/76 with a pulse of 113, respirations of 18 and temperature 99. In general, he appeared to be somewhat disheveled. HEENT: Head, ears, eyes, nose, mouth and throat demonstrated a strabismus and abrasion across the bridge of the nose. Chest is clear. Cardiac exam is normal. Abdomen is soft, nontender and extremities are normal. Neurological is intact. IMPRESSION: 1. Alcohol intoxication. 2. Fall with abrasion of the nose. 3. Chronic obstructive pulmonary disease. 4. Strabismus. 5. Prolonged QT interval, etiology unknown. PLAN: 1. Bed rest. 2. IV fluids. 3. Telemetry. 4. Cardiology consult. MMODL / IJN: [id number] /
[2018-06-24] MEDS ORDERED: QUEtiapine 100 MG TAB PO SCH (21:00)
[2018-06-24] MEDS ORDERED: MIRTAZAPINE 15 MG TAB PO SCH ×2 (21:00)
[2018-06-24] MEDS ORDERED: QUEtiapine 50 MG TAB PO SCH (21:00)
[2018-06-24] MEDS: LACTATED RINGERS 1,000 ML IV SCH (23:04)
[2018-06-25] MEDS: LACTATED RINGERS 1,000 ML IV SCH ×4 (00:10→14:54)
[2018-06-25] MEDS: LORazepam 2 MG/ML INJ IV PRN ×2 (01:16→14:55)
[2018-06-25] MEDS: METOPROLOL TARTRATE 50 MG TAB PO SCH ×2 (05:09→09:00)
[2018-06-25] MEDS ORDERED: ATROPINE SULFATE 0.1 MG/ML 10ML SYRINGE ONE (08:11)
[2018-06-25] MEDS ORDERED: NALTREXONE HCL 50 MG TAB PO SCH (09:00)
[2018-06-25] MEDS: GABAPENTIN 400 MG CAP PO SCH (09:00)
[2018-06-25] MEDS ORDERED: FLUoxetine HCL 20 MG CAP PO SCH (09:00)
[2018-06-25] MEDS ORDERED: FLUoxetine HCL 10 MG CAP PO SCH (09:00)
[2018-06-25] MEDS ORDERED: DOBUTamine DRIP for NUC MED 500 MG in DEXTROSE/WATER 1 250ML.BAG IV ONE (11:24)
--- NOTE | 2018-06-25 12:04 | P.PN ---
Subjective Mr. Jones is seen and examined in the stress lab. He is attempted to walk on the treadmill but is unable to stand up straight due to dizziness and weakness. He denies symptoms of chest pain, shortness of breath, nausea, vomiting or palpitations. His test was changed to a dobutamine stress echo. Unfortunately we were unable to achieve his target heart rate at maximum dose of dobutamine with atropine administration. He was given lopressor 50 mg this morning. Blood pressure 106/63. Echocardiogram obtained reveals preserved left ventricular systolic function with ejection fraction 50-55%, mild aortic valve sclerosis and trace to mild MR. Cardiac enzymes negative 3. He has been seen in consultation by psychiatric services at this time he recommended is stable for discharge to follow-up outpatient mental health. Objective - Vital Signs Vital signs: Vital Signs Temp 98.6 F 06/25/18 06:00 Pulse 104 H 06/25/18 06:00 Resp 18 06/25/18 06:00 BP 106/63 06/25/18 06:00 Pulse Ox 95 06/25/18 06:00 Intake & Output 06/24/18 06/25/18 06/25/18 18:59 06:59 18:59 Intake Total 360 Balance 360 Weight 65 kg Intake: Oral 360 Other: Voiding Method Toilet Toilet Toilet Urinal Urinal # Voids 2 3 - Exam GENERAL: Well-appearing, well-nourished and in no acute distress. NECK: Supple without JVD or thyromegaly. LUNGS: Breath sounds clear to auscultation bilaterally. Respiration equal and unlabored. No wheezes, rales or rhonchi. HEART: Regular rate and rhythm without murmurs, rubs or gallops. S1 and S2 heard. EXTREMITIES: Normal range of motion, no edema. No clubbing or cyanosis. Peripheral pulses intact. - Labs CBC & Chem 7: 06/23/18 22:10 06/23/18 22:10 Assessment and Plan Assessment: ASSESSMENT Chest pain, atypical. An acute coronary event has been ruled out. Fever of unknown origin History of hypertension not currently on any medications Chronic nicotine dependence History of significant alcohol abuse with several hospital admissions Bipolar depression and suicidal ideation PLAN Stable from a cardiac perspective. If clinical concern for ischemia, stress test can be repeated with NO beta blockers in his system. At 66% of target heart rate there is normal LV systolic function with no evidence of stress induced ischemic changes. Follow up with Dr. NANCY Melchor in 2-3 weeks, stress test can be repeated at that time. Smoking cessation and alcohol cessation recommended. Nurse Practitioner note has been reviewed, I agree with a documented findings and plan of care. Patient was seen and examined.
--- NOTE | 2018-06-25 13:15 | ECHOS ---
STRESS ECHOCARDIOGRAM DOBUTAMINE ECHO DATE OF SERVICE: 06/25/2018 INDICATIONS: Chest pain. MEDICATIONS: BASELINE HEART RATE: 81 BASELINE BLOOD PRESSURE: 108/71 MAXIMUM HEART RATE: 116 MAXIMUM BLOOD PRESSURE: 107/59 85% MPHR: 143 100% MPHR: 168 METS: MAXIMUM STAGE REACHED: TOTAL EXERCISE TIME: CLINICAL INFORMATION: Patient was given dobutamine infusion according to standard protocol. The patient also received 2 mg of atropine. In spite of that, the heart rate of only 116 was achieved, which is 66% of the age predicted heart rate. Maximum blood pressure of 107/59 mmHg was noted. Resting EKG shows normal sinus rhythm with normal VT interval and QRS duration and normal ST-T waves. No ST-segment depression suggestive of ischemia is noted. The baseline echocardiographic images reveal normal left ventricular chamber size with normal left ventricular systolic function. At the peak dose of dobutamine infusion, normal increase in the wall thickness and contractility is noted. FINAL IMPRESSION: 1. This dobutamine stress echocardiographic study is not suggestive of ischemia up to 66% of the age predicted heart rate. 2. Patient did not complain of any chest pain during the test. 3. If there is a high suspicion for cardiac ischemia, then the stress test may be repeated without the patient being on Lopressor. MMODL / IJN: [id number] /
[2018-06-25] MEDS: THIAMINE 100 MG TAB PO SCH (14:26)
[2018-06-25 15:15] VITALS: BP 110/65; PULSE 89; RESP 16; TEMP 99.2
--- NOTE | 2018-06-26 23:39 | DS ---
DISCHARGE SUMMARY CHIEF COMPLAINT: Acute alcohol intoxication, suicidal thoughts, and prolonged QT interval. HISTORY OF PRESENT ILLNESS AND PHYSICAL EXAM: Details of this man's history and physical can be found in the initial workup. LABORATORY STUDIES: While he was in the hospital, he had laboratory studies, details which can be found laboratory section of chart were and which were essentially unremarkable. COURSE IN THE HOSPITAL: After admission, he was seen by Cardiology and his QT interval had retracted to normal. He had no other difficulties or issues. It was felt that he could be discharged on the . FINAL DIAGNOSES: 1. Acute alcohol intoxication. 2. Major depression with suicidal thoughts. 3. Prolonged QT interval. OPERATIONS: None. CONSULTATIONS: Psychiatry and Cardiology. He is improved. MMODL / IJN: [id number] /
== END 2018-06-25 17:12 | disposition home or self-care (01) ==
LOC: EC 20:59 → 6SEL 06-24 00:21 → INTOOBSV 06-24 00:21 → 6SEL 06-24 01:28 → 4MS4W 06-24 17:55
PROVIDERS: ADMIT Family Medicine; ATTEND Family Medicine
DX: F10.229 Alcohol dependence with intoxication, unspecified (principal); R45.851 Suicidal ideations; F31.9 Bipolar disorder, unspecified; R07.89 Other chest pain; I45.81 Long QT syndrome; D72.829 Elevated white blood cell count, unspecified; F12.90 Cannabis use, unspecified, uncomplicated; I10 Essential (primary) hypertension; F25.9 Schizoaffective disorder, unspecified; F41.9 Anxiety disorder, unspecified; F10.24 Alcohol dependence with alcohol-induced mood disorder; F17.210 Nicotine dependence, cigarettes, uncomplicated; J44.9 Chronic obstructive pulmonary disease, unspecified; R50.9 Fever, unspecified; R61 Generalized hyperhidrosis; R53.1 Weakness; H50.9 Unspecified strabismus; S00.31XA Abrasion of nose, initial encounter; W01.0XXA Fall on same level from slipping, tripping and stumbling without subsequent striking against object, initial encounter; Z79.899 Other long term (current) drug therapy; Z59.0 Homelessness
CPT/HCPCS: 99285 ×2; 96372 ×2; 96376; 96374; 82075; 36415; 93005; 93306; 80048; 83605; 83735; 84484 ×2; 85025; 85610; 85730; 87040; 80306; 71046; G0378 ×3; C8930; J2060 ×2; J1250; J3411; J0461; Q9950; 93351

== ENCOUNTER 2018-07-06 00:06 | Emergency (ER) | payer OTHER ==
--- NOTE | 2018-07-06 00:53 | ED ---
General Adult HPI - General Chief complaint: Psychiatric Symptoms Stated complaint: Chest Pain/Mental Health/ETOH Time Seen by Provider: 07/06/18 00:45 Source: patient, EMS Mode of arrival: EMS Limitations: no limitations - History of Present Illness -: hour(s) Location: chest, abdomen Radiation: non-radiation Quality: burning, aching Consistency: constant Improves with: none Worsens with: none Associated Symptoms: nausea/vomiting Treatments Prior to Arrival: none - Related Data Home Medications Medication Instructions Recorded Confirmed FLUoxetine HCL [PROzac] 20 mg PO DAILY 06/06/18 07/06/18 Gabapentin 800 mg PO TID 06/06/18 07/06/18 Mirtazapine [Remeron] 30 mg PO HS 06/06/18 07/06/18 Naltrexone HCl [Revia] 50 mg PO DAILY 06/06/18 07/06/18 QUEtiapine FUMARATE [SEROquel] 300 mg PO HS 06/06/18 07/06/18 [place] Carbonate 600 mg PO HS 06/24/18 07/06/18 Vivitrol 380 mg INJ Q28D 06/24/18 07/06/18 Previous Rx's Medication Instructions Recorded Metoprolol Tartrate [Lopressor] 50 mg PO BID #20 tab 06/25/18 Thiamine [Vitamin B-1] 100 mg PO BID@1200,1700 tab 06/25/18 Allergies Allergy/AdvReac Type Severity Reaction Status Date / Time No Known Allergies Allergy Verified 07/06/18 00:14 Review of Systems ROS Statement: Those systems with pertinent positive or pertinent negative responses have been documented in the HPI. ROS Other: All systems not noted in ROS Statement are negative. Constitutional: Denies: fever, chills Respiratory: Denies: cough, dyspnea Cardiovascular: Reports: chest pain. Denies: palpitations, orthopnea, edema Gastrointestinal: Reports: abdominal pain, nausea, vomiting. Denies: diarrhea, hematemesis, melena, hematochezia Genitourinary: Denies: dysuria, hematuria Musculoskeletal: Denies: back pain Skin: Denies: rash Neurological: Denies: headache, weakness Past Medical History Past Medical History: Chest Pain / Angina, Hypertension Additional Past Medical History / Comment(s): ETOH History of Any Multi-Drug Resistant Organisms: None Reported Past Surgical History: Orthopedic Surgery Additional Past Surgical History / Comment(s): Right knee surgery and salma placed in left femur, 3 surgeries on his eyes. Past Anesthesia/Blood Transfusion Reactions: No Reported Reaction Past Psychological History: Anxiety, Bipolar, Depression, Schizoaffective Disorder Smoking Status: Current every day smoker Past Alcohol Use History: Abuse, Daily, Heavy Past Drug Use History: None Reported - Past Family History Mother Additional Family Medical History / Comment(s): Mother at age 36 from motor vehicle accident. His father is also past but does not know the cause or his age. Patient has 3 brothers that are apparently without major medical problems. General Exam Limitations: no limitations General appearance: alert, in no apparent distress Head exam: Present: atraumatic, normocephalic Eye exam: Present: normal appearance. Absent: scleral icterus, conjunctival injection ENT exam: Present: mucous membranes dry Neck exam: Present: normal inspection Respiratory exam: Present: normal lung sounds bilaterally. Absent: respiratory distress, wheezes, rales, rhonchi, stridor, chest wall tenderness, accessory muscle use Cardiovascular Exam: Present: regular rate, normal rhythm, normal heart sounds. Absent: systolic murmur, diastolic murmur, rubs, gallop GI/Abdominal exam: Present: soft, tenderness. Absent: distended, guarding, rebound, rigid, mass, pulsatile mass, hernia Extremities exam: Present: normal inspection, normal capillary refill. Absent: pedal edema, calf tenderness Back exam: Present: normal inspection. Absent: CVA tenderness (R), CVA tenderness (L) Neurological exam: Present: alert Skin exam: Present: warm, dry, intact, normal color. Absent: rash Course Vital Signs 07/06/18 07/06/18 07/06/18 00:07 00:35 01:43 Temperature 98.4 F Pulse Rate 94 97 Pulse Rate [ 87 Screwhead Polisher ] Respiratory 16 18 Rate Blood Pressure 169/89 161/98 O2 Sat by Pulse 98 95 Oximetry 07/06/18 07/06/18 07/06/18 02:44 03:39 05:16 Temperature Pulse Rate 100 94 93 Pulse Rate [ Screwhead Polisher ] Respiratory 17 15 18 Rate Blood Pressure 141/90 128/78 116/80 O2 Sat by Pulse 95 94 L 94 L Oximetry EKG Findings - EKG Results: EKG: interpreted by ERMD, WNL, sinus rhythm (Rate 84 bpm), normal axis, normal QRS, normal ST/T, no acute changes Medical Decision Making - Lab Data Result diagrams: 07/06/18 00:28 07/06/18 00:28 Lab Results 07/06/18 07/06/18 07/06/18 Range/Units 00:15 00:28 00:28 WBC 16.9 H (3.8-10.6) k/uL RBC 5.78 (4.30-5.90) m/uL Hgb 16.5 (13.0-17.5) gm/dL Hct 53.3 H (39.0-53.0) % MCV 92.2 (80.0-100.0) fL MCH 28.5 (25.0-35.0) pg MCHC 31.0 (31.0-37.0) g/dL RDW 15.9 H (11.5-15.5) % Plt Count 383 (150-450) k/uL Neutrophils % 85 % Lymphocytes % 9 % Monocytes % 4 % Eosinophils % 0 % Basophils % 0 % Neutrophils # 14.4 H (1.3-7.7) k/uL Lymphocytes # 1.5 (1.0-4.8) k/uL Monocytes # 0.7 (0-1.0) k/uL Eosinophils # 0.1 (0-0.7) k/uL Basophils # 0.1 (0-0.2) k/uL Hypochromasia Slight PT (9.0-12.0) sec INR (<1.2) APTT (22.0-30.0) sec Sodium (137-145) mmol/L Potassium (3.5-5.1) mmol/L Chloride (98-107) mmol/L Carbon Dioxide (22-30) mmol/L Anion Gap mmol/L BUN (9-20) mg/dL Creatinine (0.66-1.25) mg/dL Est GFR (CKD-EPI)AfAm (>60 ml/min/1.73 sqM) Est GFR (CKD-EPI)NonAf (>60 ml/min/1.73 sqM) Glucose (74-99) mg/dL Calcium (8.4-10.2) mg/dL Magnesium (1.6-2.3) mg/dL Total Bilirubin (0.2-1.3) mg/dL AST (17-59) U/L ALT (21-72) U/L Alkaline Phosphatase (38-126) U/L Total Creatine Kinase 45 L (55-170) U/L CK-MB (CK-2) 0.4 (0.0-2.4) ng/mL CK-MB (CK-2) Rel Index 0.9 Troponin I <0.012 (0.000-0.034) ng/mL Total Protein (6.3-8.2) g/dL Albumin (3.5-5.0) g/dL Amylase (30-110) U/L Lipase (23-300) U/L Urine Opiates Screen Not Detected (NotDetected) Ur Oxycodone Screen Not Detected (NotDetected) Urine Methadone Screen Not Detected (NotDetected) Ur Propoxyphene Screen Not Detected (NotDetected) Ur Barbiturates Screen Not Detected (NotDetected) U Tricyclic Antidepress Detected H (NotDetected) Ur Phencyclidine Scrn Not Detected (NotDetected) Ur Amphetamines Screen Not Detected (NotDetected) U Methamphetamines Scrn Not Detected (NotDetected) U Benzodiazepines Scrn Not Detected (NotDetected) Urine Cocaine Screen Not Detected (NotDetected) U Marijuana (THC) Screen Not Detected (NotDetected) 07/06/18 07/06/18 Range/Units 00:28 00:28 WBC (3.8-10.6) k/uL RBC (4.30-5.90) m/uL Hgb (13.0-17.5) gm/dL Hct (39.0-53.0) % MCV (80.0-100.0) fL MCH (25.0-35.0) pg MCHC (31.0-37.0) g/dL RDW (11.5-15.5) % Plt Count (150-450) k/uL Neutrophils % % Lymphocytes % % Monocytes % % Eosinophils % % Basophils % % Neutrophils # (1.3-7.7) k/uL Lymphocytes # (1.0-4.8) k/uL Monocytes # (0-1.0) k/uL Eosinophils # (0-0.7) k/uL Basophils # (0-0.2) k/uL Hypochromasia PT 9.7 (9.0-12.0) sec INR 1.0 (<1.2) APTT 23.4 (22.0-30.0) sec Sodium 144 (137-145) mmol/L Potassium 4.6 (3.5-5.1) mmol/L Chloride 104 (98-107) mmol/L Carbon Dioxide 22 (22-30) mmol/L Anion Gap 18 mmol/L BUN 16 (9-20) mg/dL Creatinine 0.93 (0.66-1.25) mg/dL Est GFR (CKD-EPI)AfAm >90 (>60 ml/min/1.73 sqM) Est GFR (CKD-EPI)NonAf >90 (>60 ml/min/1.73 sqM) Glucose 111 H (74-99) mg/dL Calcium 9.9 (8.4-10.2) mg/dL Magnesium 2.2 (1.6-2.3) mg/dL Total Bilirubin 0.7 (0.2-1.3) mg/dL AST 43 (17-59) U/L ALT 55 (21-72) U/L Alkaline Phosphatase 114 (38-126) U/L Total Creatine Kinase (55-170) U/L CK-MB (CK-2) (0.0-2.4) ng/mL CK-MB (CK-2) Rel Index Troponin I (0.000-0.034) ng/mL Total Protein 8.7 H (6.3-8.2) g/dL Albumin 4.9 (3.5-5.0) g/dL Amylase 244 H (30-110) U/L Lipase 354 H (23-300) U/L Urine Opiates Screen (NotDetected) Ur Oxycodone Screen (NotDetected) Urine Methadone Screen (NotDetected) Ur Propoxyphene Screen (NotDetected) Ur Barbiturates Screen (NotDetected) U Tricyclic Antidepress (NotDetected) Ur Phencyclidine Scrn (NotDetected) Ur Amphetamines Screen (NotDetected) U Methamphetamines Scrn (NotDetected) U Benzodiazepines Scrn (NotDetected) Urine Cocaine Screen (NotDetected) U Marijuana (THC) Screen (NotDetected) Disposition Clinical Impression: Chest pain, Alcohol intoxication Disposition: HOME SELF-CARE Condition: Fair Instructions: Alcohol Intoxication (ED) Is patient prescribed a controlled substance at d/c from ED?: No Referrals: None,Stated [Primary Care Provider] - 1-2 days
[2018-07-06 01:14] LABS: Basophils # (A) 0.1 k/uL (0-0.2); Basophils % (A) 0 %; Eosinophils # (A) 0.1 k/uL (0-0.7); Eosinophils % (A) 0 %; HCT 53.3 % (39.0-53.0); HGB 16.5 gm/dL (13.0-17.5); Hypochromasia Slight; Lymphocytes # (A) 1.5 k/uL (1.0-4.8); Lymphocytes % (A) 9 %; MCH 28.5 pg (25.0-35.0); MCV 92.2 fL (80.0-100.0); Mean Platelet Volume 8.4; Monocytes # (A) 0.7 k/uL (0-1.0); Monocytes % (A) 4 %; Neutrophils # (A) 14.4 k/uL (1.3-7.7); Neutrophils % (A) 85 %; Platelet Count 383 k/uL (150-450); RBC 5.78 m/uL (4.30-5.90); RDW 15.9 % (11.5-15.5); WBC 16.9 k/uL (3.8-10.6)
[2018-07-06 01:22] LABS: Amylase 244 U/L (30-110); Calcium 9.9 mg/dL (8.4-10.2); Carbon Dioxide 22 mmol/L (22-30); Glucose 111 mg/dL (74-99); Lipase 354 U/L (23-300); Total Bilirubin 0.7 mg/dL (0.2-1.3)
[2018-07-06 01:22] LABS: Amphetamine Screen,Urine Not Detected (NotDetected); Barbiturate Screen,Urine Not Detected (NotDetected); Benzodiazepines Screen,Urine Not Detected (NotDetected); Cocaine Screen,Urine Not Detected (NotDetected); Methadone Screen, Urine Not Detected (NotDetected); Opiate Screen,Urine Not Detected (NotDetected); Oxycodone Screen, Urine Not Detected (NotDetected); Phencyclidine Screen,Urine Not Detected (NotDetected); Tricyclic Antidepressant,Urine Detected (NotDetected); Urn Cannabinoid Scrn Not Detected (NotDetected)
[2018-07-06 01:24] LABS: Partial Thromboplastin Time 23.4 sec (22.0-30.0); Prothrombin Time 9.7 sec (9.0-12.0)
--- NOTE | 2018-07-06 01:27 | XR ---
EXAMINATION TYPE: XR chest 1V portable DATE OF EXAM: 07/06/2018 COMPARISON: 06/23/2018 HISTORY: Chest pain TECHNIQUE: Single frontal view of the chest is obtained. FINDINGS: Heart and mediastinum are normal. Lungs are clear. Diaphragm is normal. There are chest le ads. Bony thorax is intact. IMPRESSION: Normal chest. No change.
[2018-07-06 01:32] LABS: ALT 55 U/L (21-72); AST 43 U/L (17-59); Albumin 4.9 g/dL (3.5-5.0); Blood Urea Nitrogen 16 mg/dL (9-20); Magnesium 2.2 mg/dL (1.6-2.3); Total Protein 8.7 g/dL (6.3-8.2)
[2018-07-06 01:33] LABS: Alkaline Phosphatase 114 U/L (38-126)
[2018-07-06 01:37] LABS: Anion Gap 18 mmol/L; Chloride 104 mmol/L (98-107); Sodium 144 mmol/L (137-145)
[2018-07-06 01:38] LABS: Potassium 4.6 mmol/L (3.5-5.1)
[2018-07-06 01:46] LABS: Creatine Kinase 45 U/L (55-170)
[2018-07-06 01:59] LABS: Creatine Kinase MB 0.4 ng/mL (0.0-2.4); Troponin I <0.012 ng/mL (0.000-0.034)
[2018-07-06] MEDS ORDERED: IBUPROFEN 600 MG TAB PO STA (02:34)
[2018-07-06 05:17] VITALS: RESP 18
[2018-07-06] MEDS ORDERED: NICOTINE 21MG/24HR PATCH TRANSDERM STA (05:25)
[2018-07-06] MEDS ORDERED: chlordiazePOXIDE 25 MG CAP PO STA (06:47)
[2018-07-06 07:15] VITALS: BP 124/80; PULSE 96; TEMP 97.4
== END 2018-07-06 07:15 | disposition home or self-care (01) ==
LOC: EC 00:06
DX: R07.9 Chest pain, unspecified (principal); F10.129 Alcohol abuse with intoxication, unspecified; F41.9 Anxiety disorder, unspecified; F25.9 Schizoaffective disorder, unspecified; F17.200 Nicotine dependence, unspecified, uncomplicated; Z79.899 Other long term (current) drug therapy
CPT/HCPCS: 82075; 36415; 93005; 80053; 82150; 82550; 82553; 83690; 83735; 84484; 85025; 85610; 85730; 80306; 71045; 99285; S4990

== ENCOUNTER 2018-07-08 14:28 | Emergency (ER) | payer OTHER ==
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
[2018-07-08 16:06] LABS: Cocaine Screen,Urine Not Detected (NotDetected); Phencyclidine Screen,Urine Not Detected (NotDetected); Urn Cannabinoid Scrn Detected (NotDetected)
[2018-07-08 16:07] LABS: Amphetamine Screen,Urine Not Detected (NotDetected); Barbiturate Screen,Urine Not Detected (NotDetected); Benzodiazepines Screen,Urine Detected (NotDetected); Methadone Screen, Urine Not Detected (NotDetected); Opiate Screen,Urine Not Detected (NotDetected); Oxycodone Screen, Urine Not Detected (NotDetected); Tricyclic Antidepressant,Urine Detected (NotDetected)
[2018-07-08 20:31] VITALS: BP 127/79; PULSE 113; RESP 18; TEMP 97.9
== END 2018-07-08 20:38 | disposition home or self-care (01) ==
LOC: EC 14:28
DX: F10.229 Alcohol dependence with intoxication, unspecified (principal); F25.9 Schizoaffective disorder, unspecified; F31.9 Bipolar disorder, unspecified; F41.9 Anxiety disorder, unspecified; F17.200 Nicotine dependence, unspecified, uncomplicated; Z79.899 Other long term (current) drug therapy
CPT/HCPCS: 80306; 82075; 93005; 99285

== ENCOUNTER 2018-07-13 20:34 | Emergency (ER) | payer OTHER ==
[2018-07-13 20:45] VITALS: TEMP 98.2
--- NOTE | 2018-07-13 23:30 | ED ---
Psych HPI - General Chief Complaint: Psychiatric Symptoms Stated Complaint: Mental Health Time Seen by Provider: 07/13/18 21:33 Source: police Mode of arrival: ambulatory - History of Present Illness Initial Comments: -year-old man presenting to have psychiatric evaluation for depression and suicidal ideation. Patient states that his life seems worthless, and he does not have reason to go on. He started feeling worse after drinking tonight. MD Complaint: suicidal ideation, feels depressed -: week(s) Associated Psychiatric Symptoms: depression, suicidal ideation Quality: constant Improves With: none Worsens With: none Context: recent alcohol abuse Associated Symptoms: denies other symptoms - Related Data Home Medications Medication Instructions Recorded Confirmed FLUoxetine HCL [PROzac] 20 mg PO DAILY 06/06/18 07/08/18 Gabapentin 800 mg PO TID 06/06/18 07/08/18 Mirtazapine [Remeron] 30 mg PO HS 06/06/18 07/08/18 Naltrexone HCl [Revia] 50 mg PO DAILY 06/06/18 07/08/18 QUEtiapine FUMARATE [SEROquel] 300 mg PO HS 06/06/18 07/08/18 [place] Carbonate 600 mg PO HS 06/24/18 07/08/18 Vivitrol 380 mg INJ Q28D 06/24/18 07/08/18 Previous Rx's Medication Instructions Recorded Metoprolol Tartrate [Lopressor] 50 mg PO BID #20 tab 06/25/18 Thiamine [Vitamin B-1] 100 mg PO BID@1200,1700 tab 06/25/18 Allergies Allergy/AdvReac Type Severity Reaction Status Date / Time No Known Allergies Allergy Verified 07/13/18 20:45 Review of Systems ROS Statement: Those systems with pertinent positive or pertinent negative responses have been documented in the HPI. ROS Other: All systems not noted in ROS Statement are negative. Constitutional: Denies: fever Respiratory: Denies: cough, dyspnea Cardiovascular: Denies: chest pain, palpitations Gastrointestinal: Denies: abdominal pain, vomiting, diarrhea, constipation Musculoskeletal: Denies: back pain Skin: Denies: rash Neurological: Denies: headache, weakness Psychiatric: Reports: depression, suicidal thoughts Past Medical History Past Medical History: Chest Pain / Angina, Hypertension Additional Past Medical History / Comment(s): ETOH History of Any Multi-Drug Resistant Organisms: None Reported Past Surgical History: Orthopedic Surgery Additional Past Surgical History / Comment(s): Right knee surgery and salma placed in left femur, 3 surgeries on his eyes. Past Anesthesia/Blood Transfusion Reactions: No Reported Reaction Past Psychological History: Anxiety, Bipolar, Depression, Schizoaffective Disorder Smoking Status: Current every day smoker Past Alcohol Use History: Abuse, Daily, Heavy Past Drug Use History: None Reported - Past Family History Mother Additional Family Medical History / Comment(s): Mother at age 36 from motor vehicle accident. His father is also past but does not know the cause or his age. Patient has 3 brothers that are apparently without major medical problems. General Exam Limitations: no limitations General appearance: alert, in no apparent distress Head exam: Present: atraumatic, normocephalic Eye exam: Present: normal appearance. Absent: scleral icterus, conjunctival injection Respiratory exam: Present: normal lung sounds bilaterally. Absent: respiratory distress, wheezes, rales, rhonchi, stridor Cardiovascular Exam: Present: regular rate, normal rhythm, normal heart sounds. Absent: systolic murmur, diastolic murmur, rubs, gallop GI/Abdominal exam: Present: soft. Absent: distended, tenderness, guarding, rebound, rigid, mass Extremities exam: Present: normal inspection, normal capillary refill. Absent: pedal edema, calf tenderness Neurological exam: Present: alert Psychiatric exam: Present: depressed, suicidal ideation. Absent: agitated, anxious, manic, homicidal ideation Skin exam: Present: warm, dry, intact, normal color. Absent: rash Course Vital Signs 07/13/18 20:43 Temperature 98.2 F Pulse Rate 94 Respiratory 18 Rate Blood Pressure 121/78 O2 Sat by Pulse 99 Oximetry Disposition Clinical Impression: Alcohol intoxication Disposition: HOME SELF-CARE Condition: Fair Instructions: Alcohol Intoxication (ED) Is patient prescribed a controlled substance at d/c from ED?: No Referrals: Kermit Partida MD [Primary Care Provider] - 1-2 days
[2018-07-13 23:46] LABS: Anisocytosis Slight; Basophils # (A) 0.1 k/uL (0-0.2); Basophils % (A) 1 %; Eosinophils # (A) 0.5 k/uL (0-0.7); Eosinophils % (A) 4 %; HCT 42.1 % (39.0-53.0); HGB 13.8 gm/dL (13.0-17.5); Lymphocytes # (A) 2.5 k/uL (1.0-4.8); Lymphocytes % (A) 18 %; MCH 29.5 pg (25.0-35.0); MCHC 32.8 g/dL (31.0-37.0); MCV 89.9 fL (80.0-100.0); Mean Platelet Volume 8.1; Monocytes # (A) 0.9 k/uL (0-1.0); Monocytes % (A) 7 %; Neutrophils # (A) 9.4 k/uL (1.3-7.7); Neutrophils % (A) 69 %; Platelet Count 297 k/uL (150-450); RBC 4.69 m/uL (4.30-5.90); RDW 16.1 % (11.5-15.5); WBC 13.7 k/uL (3.8-10.6)
[2018-07-13 23:52] LABS: Anion Gap 11 mmol/L; Blood Urea Nitrogen 5 mg/dL (9-20); Calcium 8.9 mg/dL (8.4-10.2); Carbon Dioxide 23 mmol/L (22-30); Chloride 104 mmol/L (98-107); Glucose 68 mg/dL (74-99); Potassium 3.8 mmol/L (3.5-5.1); Sodium 138 mmol/L (137-145)
[2018-07-13 23:58] VITALS: BP 109/71; PULSE 95; RESP 16
== END 2018-07-13 23:57 | disposition home or self-care (01) ==
LOC: EC 20:34
DX: F10.129 Alcohol abuse with intoxication, unspecified (principal); R45.851 Suicidal ideations; I10 Essential (primary) hypertension; F20.9 Schizophrenia, unspecified; F31.9 Bipolar disorder, unspecified; F41.9 Anxiety disorder, unspecified; F17.200 Nicotine dependence, unspecified, uncomplicated; Z79.899 Other long term (current) drug therapy
CPT/HCPCS: 36415; 80048; 82075; 85025; 99285

== ENCOUNTER 2018-07-14 20:07 | Emergency (ER) | payer OTHER ==
[2018-07-14 20:16] VITALS: RESP 16; TEMP 97.4
[2018-07-14 21:02] LABS: Anisocytosis Slight; Basophils # (A) 0.1 k/uL (0-0.2); Basophils % (A) 0 %; Eosinophils # (A) 0.5 k/uL (0-0.7); Eosinophils % (A) 3 %; HCT 46.7 % (39.0-53.0); Lymphocytes # (A) 1.7 k/uL (1.0-4.8); Lymphocytes % (A) 11 %; MCH 29.3 pg (25.0-35.0); MCHC 32.2 g/dL (31.0-37.0); Mean Platelet Volume 8.2; Monocytes # (A) 0.8 k/uL (0-1.0); Monocytes % (A) 5 %; Neutrophils # (A) 12.7 k/uL (1.3-7.7); Neutrophils % (A) 80 %; Platelet Count 327 k/uL (150-450); RBC 5.13 m/uL (4.30-5.90); RDW 16.1 % (11.5-15.5); WBC 15.9 k/uL (3.8-10.6)
--- NOTE | 2018-07-14 21:06 | ED ---
Chest Pain HPI - General Chief Complaint: Chest Pain Stated Complaint: Chest pain Time Seen by Provider: 07/14/18 20:45 Source: patient, RN notes reviewed Mode of arrival: ambulatory Limitations: no limitations - History of Present Illness Initial Comments: This is a 52-year-old man, well-known to the emergency department, who presents with chief complaint of chest pain. On initial evaluation, patient has chief complaint of depression. Patient is seen here frequently for mental health evaluations. Patient states that a couple hours ago he developed chest pain. He states that it is throbbing and pressure-like. He states that it is in the central chest and is intermittent. He states it is made worse with smoking cigarettes. Denies shortness of breath, fevers or chills, abdominal pain, nausea or vomiting. - Related Data Home Medications Medication Instructions Recorded Confirmed FLUoxetine HCL [PROzac] 20 mg PO DAILY 06/06/18 07/08/18 Gabapentin 800 mg PO TID 06/06/18 07/08/18 Mirtazapine [Remeron] 30 mg PO HS 06/06/18 07/08/18 Naltrexone HCl [Revia] 50 mg PO DAILY 06/06/18 07/08/18 QUEtiapine FUMARATE [SEROquel] 300 mg PO HS 06/06/18 07/08/18 [place] Carbonate 600 mg PO HS 06/24/18 07/08/18 Vivitrol 380 mg INJ Q28D 06/24/18 07/08/18 Previous Rx's Medication Instructions Recorded Metoprolol Tartrate [Lopressor] 50 mg PO BID #20 tab 06/25/18 Thiamine [Vitamin B-1] 100 mg PO BID@1200,1700 tab 06/25/18 Allergies Allergy/AdvReac Type Severity Reaction Status Date / Time No Known Allergies Allergy Verified 07/14/18 20:16 Review of Systems ROS Statement: Those systems with pertinent positive or pertinent negative responses have been documented in the HPI. ROS Other: All systems not noted in ROS Statement are negative. EKG Findings - EKG Comments: EKG Findings:: 20:24:36. Normal sinus rhythm, right atrial enlargement, left axis deviation, pulmonary disease pattern, nonspecific ST abnormality. Ventricular rate 87 bpm, OK interval 154, QRS duration 60, QT/QTC 390/469 Past Medical History Past Medical History: Chest Pain / Angina, Hypertension Additional Past Medical History / Comment(s): ETOH History of Any Multi-Drug Resistant Organisms: None Reported Past Surgical History: Orthopedic Surgery Additional Past Surgical History / Comment(s): Right knee surgery and salma placed in left femur, 3 surgeries on his eyes. Past Anesthesia/Blood Transfusion Reactions: No Reported Reaction Past Psychological History: Anxiety, Bipolar, Depression, Schizoaffective Disorder Smoking Status: Current every day smoker Past Alcohol Use History: Abuse, Daily, Heavy Past Drug Use History: None Reported - Past Family History Mother Additional Family Medical History / Comment(s): Mother at age 36 from motor vehicle accident. His father is also past but does not know the cause or his age. Patient has 3 brothers that are apparently without major medical problems. General Exam - General Exam Comments Initial Comments: General: Awake and alert, well-developed; in no apparent distress. Lying comfortably on ED stretcher. HEENT: Head atraumatic, normocephalic. Pupils are equal, round and reactive to light. Extraocular movements intact. Oropharynx moist without erythema or exudate. Neck: Supple. Normal ROM. Cardiovascular: Regular rate and rhythm. No murmurs, rubs or gallops. Chest symmetrical. Tenderness on palpation of right chest wall. Respiratory: Lungs clear to auscultation bilaterally. No wheezes, rales or rhonchi. Normal respiratory effort with no use of accessory muscles. Abdomen: Soft, non-tender, non-distended. No rigidity, rebound or guarding. Normal bowel sounds in all 4 quadrants. Musculoskeletal: Normal ROM, no tenderness bilateral upper and lower extremities. Skin: [place], warm and dry without rashes or lesions. Neurological: Alert and oriented x3. CN II-XII grossly intact. Speech is fluent and answers are appropriate. No focal neuro deficits. Psychiatric: Normal mood and affect. No overt signs of depression or anxiety noted. Limitations: no limitations Course Vital Signs 07/14/18 07/14/18 20:11 22:17 Temperature 97.4 F L Pulse Rate 107 H 85 Respiratory 16 16 Rate Blood Pressure 115/69 126/72 O2 Sat by Pulse 99 98 Oximetry Chest Pain MDM - MDM This is a 52-year-old female who presents to the emergency department with chief complaint of chest pain. Patient is well-known to the emergency department. He is homeless and is seen here frequently for mental health evaluations and chest pain. Patient reports a throbbing chest pain for the last few hours. There is tenderness on palpation of patient's right chest wall. Troponin is within normal limits. EKG reveals normal sinus rhythm. Chest x-ray reveals no acute abnormalities. Findings were discussed with patient. He requests to stay a little longer to get some rest. Findings discussed with attending physician, Dr. Head. His vital signs have been stable and he is in no acute distress. He will be discharged home at this time. He voices understanding. All questions were answered. Chest x-ray impression: Normal chest. No change. Disposition Clinical Impression: Chest wall pain Disposition: HOME SELF-CARE Condition: Good Instructions: Chest Pain (ED) Additional Instructions: Please follow up with primary care provider within 1-2 days. Return to emergency department if symptoms should worsen or any concerns arise. Is patient prescribed a controlled substance at d/c from ED?: No Referrals: Kermit Partida MD [Primary Care Provider] - 1-2 days Time of Disposition: 22:53
[2018-07-14 21:10] LABS: Partial Thromboplastin Time 24.4 sec (22.0-30.0); Prothrombin Time 9.9 sec (9.0-12.0)
--- NOTE | 2018-07-14 21:11 | XR ---
EXAMINATION TYPE: XR chest 2V DATE OF EXAM: 07/14/2018 COMPARISON: 07/06/2018 HISTORY: Chest pain TECHNIQUE: Frontal and lateral views of the chest are obtained. FINDINGS: Heart and mediastinum are normal. Lungs are clear. Diaphragm is normal. There are chest le ads. Bony thorax is intact. IMPRESSION: Normal chest. No change.
[2018-07-14 21:13] LABS: ALT 22 U/L (21-72); AST 21 U/L (17-59); Albumin 3.8 g/dL (3.5-5.0); Alkaline Phosphatase 117 U/L (38-126); Anion Gap 13 mmol/L; Blood Urea Nitrogen 7 mg/dL (9-20); Calcium 9.4 mg/dL (8.4-10.2); Carbon Dioxide 22 mmol/L (22-30); Chloride 103 mmol/L (98-107); Glucose 109 mg/dL (74-99); Lipase 224 U/L (23-300); Magnesium 2.1 mg/dL (1.6-2.3); Potassium 3.6 mmol/L (3.5-5.1); Sodium 138 mmol/L (137-145); Total Bilirubin 1.2 mg/dL (0.2-1.3); Total Protein 6.8 g/dL (6.3-8.2)
[2018-07-14 21:31] LABS: Creatine Kinase 73 U/L (55-170)
[2018-07-14 21:45] LABS: Creatine Kinase MB 0.5 ng/mL (0.0-2.4); Troponin I <0.012 ng/mL (0.000-0.034)
[2018-07-14 22:17] VITALS: BP 126/72; PULSE 85
== END 2018-07-14 23:07 | disposition home or self-care (01) ==
LOC: EC 20:07
DX: R07.89 Other chest pain (principal); F32.9 Major depressive disorder, single episode, unspecified; Z59.0 Homelessness; I10 Essential (primary) hypertension; F25.9 Schizoaffective disorder, unspecified; F31.9 Bipolar disorder, unspecified; F17.210 Nicotine dependence, cigarettes, uncomplicated; Z79.899 Other long term (current) drug therapy
CPT/HCPCS: 36415; 71046; 80053; 82550; 82553; 83690; 83735; 84484; 85025; 85610; 85730; 93005; 99285

== ENCOUNTER 2018-07-15 13:48 | Emergency (ER) | payer OTHER ==
[2018-07-15 14:21] VITALS: BP 122/86; PULSE 93; RESP 18; TEMP 97.8
--- NOTE | 2018-07-15 15:34 | ED ---
General Adult HPI - General Chief complaint: Psychiatric Symptoms Stated complaint: mental health Time Seen by Provider: 07/15/18 15:23 Source: patient, RN notes reviewed Mode of arrival: ambulatory Limitations: no limitations - History of Present Illness Initial comments: Patient is a pleasant 52-year-old male presenting to the emergency Department with depression and suicidal thoughts. Symptoms have been bugging him for the past few days. Patient states he cannot take it anymore. Patient does have thoughts of self-harm by jumping in front of a car. Patient does have a history of depression. Patient feels slightly paranoid and does see shadows. Otherwise no hallucinations. No homicidal thoughts however patient does admit he gets angry frequently. No new physical complaints. No alcohol or drug use. - Related Data Home Medications Medication Instructions Recorded Confirmed FLUoxetine HCL [PROzac] 20 mg PO DAILY 06/06/18 07/15/18 Mirtazapine [Remeron] 30 mg PO HS 06/06/18 07/15/18 QUEtiapine FUMARATE [SEROquel] 300 mg PO HS 06/06/18 07/15/18 [place] Carbonate 600 mg PO HS 06/24/18 07/15/18 Gabapentin 800 mg PO TID 07/15/18 07/15/18 Metoprolol Tartrate [Lopressor] 50 mg PO DAILY 07/15/18 07/15/18 Naltrexone HCl [Revia] 50 mg PO DAILY 07/15/18 07/15/18 Terbinafine [LamISIL] 250 mg PO DAILY 07/15/18 07/15/18 Allergies Allergy/AdvReac Type Severity Reaction Status Date / Time No Known Allergies Allergy Verified 07/15/18 16:20 Review of Systems ROS Statement: Those systems with pertinent positive or pertinent negative responses have been documented in the HPI. ROS Other: All systems not noted in ROS Statement are negative. Constitutional: Denies: fever Eyes: Denies: eye pain ENT: Denies: ear pain Respiratory: Denies: cough Cardiovascular: Denies: chest pain Endocrine: Denies: fatigue Gastrointestinal: Denies: abdominal pain Genitourinary: Denies: dysuria Musculoskeletal: Denies: back pain Skin: Denies: rash Neurological: Denies: headache Psychiatric: Reports: depression, suicidal thoughts. Denies: auditory hallucinations, homicidal thoughts Past Medical History Past Medical History: Chest Pain / Angina, Hypertension Additional Past Medical History / Comment(s): ETOH History of Any Multi-Drug Resistant Organisms: None Reported Past Surgical History: Orthopedic Surgery Additional Past Surgical History / Comment(s): Right knee surgery and salma placed in left femur, 3 surgeries on his eyes. Past Anesthesia/Blood Transfusion Reactions: No Reported Reaction Past Psychological History: Anxiety, Bipolar, Depression, Schizoaffective Disorder Smoking Status: Current every day smoker Past Alcohol Use History: Abuse, Daily, Heavy Past Drug Use History: None Reported - Past Family History Mother Additional Family Medical History / Comment(s): Mother at age 36 from motor vehicle accident. His father is also past but does not know the cause or his age. Patient has 3 brothers that are apparently without major medical problems. General Exam Limitations: no limitations General appearance: alert, in no apparent distress Head exam: Present: atraumatic Eye exam: Present: normal appearance Neck exam: Present: normal inspection Respiratory exam: Present: normal lung sounds bilaterally Cardiovascular Exam: Present: regular rate, normal rhythm GI/Abdominal exam: Present: soft. Absent: tenderness Extremities exam: Present: normal inspection Neurological exam: Present: alert Psychiatric exam: Present: flat affect Skin exam: Present: normal color Course Vital Signs 07/15/18 14:19 Temperature 97.8 F Pulse Rate 93 Respiratory 18 Rate Blood Pressure 122/86 O2 Sat by Pulse 98 Oximetry Medical Decision Making - Medical Decision Making Patient was seen by his professor of lat[place] [employer] studies with the act team with [facility]. She is comfortable taking the patient to the [facility]. Patient is comfortable with this plan. Patient denies suicidal ideation and does contract for safety. Patient does have an appointment with the psychiatrist on . Disposition Clinical Impression: Depression Disposition: HOME SELF-CARE Condition: Stable Instructions: Depression (ED), Suicide Prevention (ED) Additional Instructions: Discharge to act team. Please follow-up with [facility] as directed. Please follow- up with your psychiatrist as scheduled. Return for onset of self-harm , worsening symptoms, or other concerns. Is patient prescribed a controlled substance at d/c from ED?: No Referrals: Kermit Partida MD [Primary Care Provider] - 1-2 days Time of Disposition: 17:19
== END 2018-07-15 17:48 | disposition home or self-care (01) ==
LOC: EC 13:48
DX: F31.9 Bipolar disorder, unspecified (principal); R45.851 Suicidal ideations; F25.9 Schizoaffective disorder, unspecified; F41.9 Anxiety disorder, unspecified; F17.200 Nicotine dependence, unspecified, uncomplicated; I10 Essential (primary) hypertension; I20.9 Angina pectoris, unspecified; Z98.890 Other specified postprocedural states; Z79.899 Other long term (current) drug therapy
CPT/HCPCS: 99284

== ENCOUNTER 2018-07-26 15:59 | Emergency (ER) | payer OTHER ==
[2018-07-26 16:10] VITALS: RESP 18; TEMP 98
--- NOTE | 2018-07-26 17:11 | ED ---
Psych HPI - General Chief Complaint: Psychiatric Symptoms Stated Complaint: depression Time Seen by Provider: 07/26/18 16:22 Source: patient, RN notes reviewed Mode of arrival: ambulatory Limitations: no limitations - History of Present Illness Initial Comments: This a 52-year-old male presents emergency Department chief complaint of depression, suicidal ideation. Patient states that he is sober at this time he has not drank last few days. He does intermittently drinking has a history of alcohol abuse. Patient denies illicit drug use. Patient states he plans to shoot himself or jump in the river. Patient states that is not homicidal. Denies any physical complaints. - Related Data Home Medications Medication Instructions Recorded Confirmed FLUoxetine HCL [PROzac] 20 mg PO DAILY 06/06/18 07/26/18 Mirtazapine [Remeron] 30 mg PO HS 06/06/18 07/26/18 QUEtiapine FUMARATE [SEROquel] 300 mg PO HS 06/06/18 07/26/18 [place] Carbonate 600 mg PO HS 06/24/18 07/26/18 Gabapentin 800 mg PO TID 07/15/18 07/26/18 Naltrexone HCl [Revia] 50 mg PO DAILY 07/15/18 07/26/18 Terbinafine [LamISIL] 250 mg PO DAILY 07/15/18 07/26/18 Allergies Allergy/AdvReac Type Severity Reaction Status Date / Time No Known Allergies Allergy Verified 07/26/18 17:10 Review of Systems ROS Statement: Those systems with pertinent positive or pertinent negative responses have been documented in the HPI. ROS Other: All systems not noted in ROS Statement are negative. Past Medical History Past Medical History: Chest Pain / Angina, Hypertension Additional Past Medical History / Comment(s): ETOH History of Any Multi-Drug Resistant Organisms: None Reported Past Surgical History: Orthopedic Surgery Additional Past Surgical History / Comment(s): Right knee surgery and salma placed in left femur, 3 surgeries on his eyes. Past Anesthesia/Blood Transfusion Reactions: No Reported Reaction Past Psychological History: Anxiety, Bipolar, Depression, Schizoaffective Disorder Smoking Status: Current every day smoker Past Alcohol Use History: Abuse, Daily Past Drug Use History: None Reported - Past Family History Mother Additional Family Medical History / Comment(s): Mother at age 36 from motor vehicle accident. His father is also past but does not know the cause or his age. Patient has 3 brothers that are apparently without major medical problems. General Exam Limitations: no limitations General appearance: alert, in no apparent distress Head exam: Present: atraumatic, normocephalic, normal inspection Neck exam: Present: normal inspection, full ROM. Absent: tenderness, meningismus, lymphadenopathy Respiratory exam: Present: normal lung sounds bilaterally. Absent: respiratory distress, wheezes, rales, rhonchi, stridor Cardiovascular Exam: Present: regular rate, normal rhythm, normal heart sounds. Absent: systolic murmur, diastolic murmur, rubs, gallop, clicks Back exam: Absent: CVA tenderness (R), CVA tenderness (L) Neurological exam: Present: alert, oriented X3, CN II-XII intact Psychiatric exam: Present: depressed Course Vital Signs 07/26/18 16:07 Temperature 98 F Pulse Rate 86 Respiratory 18 Rate Blood Pressure 136/96 O2 Sat by Pulse 98 Oximetry Medical Decision Making - Medical Decision Making 52-year-old male presented for psychiatric evaluation. Patient was evaluated by EPS case discussed with psychiatrist psychiatry recommends patient to be discharged back to [place] home. Return parameters were discussed. Patient contracts for safety states he is not suicidal. - Lab Data Lab Results 07/26/18 Range/Units 17:00 Urine Opiates Screen Not Detected (NotDetected) Ur Oxycodone Screen Not Detected (NotDetected) Urine Methadone Screen Not Detected (NotDetected) Ur Propoxyphene Screen Not Detected (NotDetected) Ur Barbiturates Screen Not Detected (NotDetected) U Tricyclic Antidepress Detected H (NotDetected) Ur Phencyclidine Scrn Not Detected (NotDetected) Ur Amphetamines Screen Not Detected (NotDetected) U Methamphetamines Scrn Not Detected (NotDetected) U Benzodiazepines Scrn Detected H (NotDetected) Urine Cocaine Screen Not Detected (NotDetected) U Marijuana (THC) Screen Not Detected (NotDetected) Disposition Clinical Impression: Depression Disposition: HOME SELF-CARE Condition: Stable Instructions: Depression (ED) Additional Instructions: Please return to the Emergency Department if symptoms worsen or any other concerns. Is patient prescribed a controlled substance at d/c from ED?: No Referrals: Kermit Partida MD [Primary Care Provider] - 1-2 days Time of Disposition: 18:43
[2018-07-26 17:34] LABS: Amphetamine Screen,Urine Not Detected (NotDetected); Barbiturate Screen,Urine Not Detected (NotDetected); Benzodiazepines Screen,Urine Detected (NotDetected); Cocaine Screen,Urine Not Detected (NotDetected); Methadone Screen, Urine Not Detected (NotDetected); Opiate Screen,Urine Not Detected (NotDetected); Oxycodone Screen, Urine Not Detected (NotDetected); Phencyclidine Screen,Urine Not Detected (NotDetected); Tricyclic Antidepressant,Urine Detected (NotDetected); Urn Cannabinoid Scrn Not Detected (NotDetected)
[2018-07-26 19:00] VITALS: BP 140/76; PULSE 88
== END 2018-07-26 19:00 | disposition home or self-care (01) ==
LOC: EC 15:59
DX: F32.9 Major depressive disorder, single episode, unspecified (principal); R45.851 Suicidal ideations; F41.9 Anxiety disorder, unspecified; F25.0 Schizoaffective disorder, bipolar type; F17.200 Nicotine dependence, unspecified, uncomplicated; Z79.899 Other long term (current) drug therapy
CPT/HCPCS: 80306; 99284

== ENCOUNTER 2018-08-02 18:11 | Emergency (ER) | payer OTHER ==
[2018-08-02 18:27] VITALS: RESP 18; TEMP 98.2
--- NOTE | 2018-08-02 18:42 | ED ---
Psych HPI - General Source: patient Mode of arrival: ambulatory <Yumiko Gandhi - Last Filed: 08/02/18 23:55> <Marlene Velázquez - Last Filed: 08/03/18 02:20> - General Chief Complaint: Psychiatric Symptoms Stated Complaint: Mental Health - History of Present Illness Initial Comments: 52-year-old male with past medical history of major depression and bipolar presenting today for chief complaint of I want to jump out of the car. Patient states that today he has felt more depressed than usual, he thought about jumping out of a cart in his life. Patient denies taking any medications, or recreational drugs. Patient does state that he drank about 4 big beers today to deal with the depression. He states he was not drinking the beer to a displaced. Patient has multiple hospitalizations for suicidal ideations/plan in the past with the most recent being 1 week ago. Remainder of ROS negative, Patient denies any homicidal ideations, recent fever, chills, shortness of breath, chest pain, back pain, abdominal pain, nausea or vomiting, numbness or tingling, dysuria or hematuria, constipation or diarrhea, headaches or visual changes, or any other complaints. (Yumiko Gandhi) - Related Data Home Medications Medication Instructions Recorded Confirmed FLUoxetine HCL [PROzac] 20 mg PO DAILY 06/06/18 08/02/18 Mirtazapine [Remeron] 30 mg PO HS 06/06/18 08/02/18 QUEtiapine FUMARATE [SEROquel] 300 mg PO HS 06/06/18 08/02/18 [place] Carbonate 600 mg PO HS 06/24/18 08/02/18 Gabapentin 800 mg PO TID 07/15/18 08/02/18 Naltrexone HCl [Revia] 50 mg PO DIRECTED 07/15/18 08/02/18 Terbinafine [LamISIL] 250 mg PO DAILY 07/15/18 08/02/18 Atorvastatin [Lipitor] 20 mg PO HS 08/02/18 08/02/18 Loratadine [Claritin] 10 mg PO DAILY 08/02/18 08/02/18 Naltrexone 380mg Inj 1 dose IM Q30D 08/02/18 08/02/18 amLODIPine [Norvasc] 2.5 mg PO DAILY 08/02/18 08/02/18 Allergies Allergy/AdvReac Type Severity Reaction Status Date / Time No Known Allergies Allergy Verified 07/26/18 17:10 Review of Systems ROS Other: All systems not noted in ROS Statement are negative. Constitutional: Denies: fever, chills, night sweats ENT: Denies: ear pain, throat pain Respiratory: Denies: cough, dyspnea, wheezes, hemoptysis, stridor Cardiovascular: Denies: chest pain, palpitations Gastrointestinal: Denies: abdominal pain, nausea, vomiting, diarrhea, constipation Genitourinary: Denies: urgency, dysuria, frequency Musculoskeletal: Denies: back pain Skin: Denies: rash, lesions Neurological: Denies: headache, weakness, numbness, paresthesias, confusion, abnormal gait <Yumiko Gandhi - Last Filed: 08/02/18 23:55> ROS Other: All systems not noted in ROS Statement are negative. <Marlene Velázquez P - Last Filed: 08/03/18 02:20> ROS Statement: Those systems with pertinent positive or pertinent negative responses have been documented in the HPI. Past Medical History Past Medical History: Chest Pain / Angina, Hypertension Additional Past Medical History / Comment(s): ETOH History of Any Multi-Drug Resistant Organisms: None Reported Past Surgical History: Orthopedic Surgery Additional Past Surgical History / Comment(s): Right knee surgery and salma placed in left femur, 3 surgeries on his eyes. Past Anesthesia/Blood Transfusion Reactions: No Reported Reaction Past Psychological History: Anxiety, Bipolar, Depression, Schizoaffective Disorder Smoking Status: Current every day smoker Past Alcohol Use History: Abuse, Daily, Heavy Past Drug Use History: None Reported - Past Family History Mother Additional Family Medical History / Comment(s): Mother at age 36 from motor vehicle accident. His father is also past but does not know the cause or his age. Patient has 3 brothers that are apparently without major medical problems. <Yumiko aGndhi - Last Filed: 08/02/18 23:55> General Exam Limitations: no limitations <Yumiko Gandhi - Last Filed: 08/02/18 23:55> <Marlene Velázquez P - Last Filed: 08/03/18 02:20> - General Exam Comments Initial Comments: General: The patient is awake and alert, in no distress, and does not appear acutely ill. Smell of alcohol on breath. Eye: Pupils are equal, round and reactive to light, extra-ocular movements are intact. No nystagmus. There is normal conjunctiva bilaterally. No signs of icterus. Ears, nose, mouth and throat: There are moist mucous membranes and no oral lesions. Neck: The neck is supple, there is no tenderness or JVD. Cardiovascular: There is a regular rate and rhythm. No murmur, rub or gallop is appreciated. Respiratory: Lungs are clear to auscultation, respirations are non-labored, breath sounds are equal. No wheezes, stridor, rales, or rhonchi. Gastrointestinal: Soft, non-distended, non-tender abdomen without masses or organomegaly noted. There is no rebound or guarding present. Bowel sounds are unremarkable. Musculoskeletal: Normal ROM, no tenderness. Strength 5/5. Sensation intact. Pulses equal bilaterally 2+. Neurological: A&O x 3. CN II-XII intact, There are no obvious motor or sensory deficits. Coordination appears grossly intact. Speech is normal. Skin: Skin is warm and dry and no rashes or lesions are noted. Scarring noted on the anterior knees b/l. Psychiatric: Cooperative, appropriate mood & affect, normal judgment. (Yumiko Gandhi) Vital Signs 08/02/18 18:24 Temperature 98.2 F Pulse Rate 88 Respiratory 18 Rate Blood Pressure 128/84 O2 Sat by Pulse 99 Oximetry Medical Decision Making <Yumiko Gandhi - Last Filed: 08/02/18 23:55> <Marlene Velázquez - Last Filed: 08/03/18 02:20> - Medical Decision Making BAT EOTH .143. POC glucose 68, pt fed repeat 84. Repeat BAT ETOH 0.051. Pt medically cleared at 11:00PM contacted EPS. EPS notified. Case discussed with Dr. Velázquez who will continue care of patient, until admission. Signed out at 11 :55PM. (Yumiko Gandhi) Patient was evaluated by EPS, at this time they recommend the patient be discharged home. The time is currently 2 AM, the patient cannot return to the homeless half-way at this time, the weather outside is 49 in raining. At this time and I think it would be environmentally safe for the patient be discharged home. Will discharge home and allow the patient to sleep in the ER waiting room until he has a place to go in the morning. (Marlene Velázquez) - Lab Data Lab Results 08/02/18 08/02/18 08/02/18 Range/Units 18:53 18:56 19:44 POC Glucose (mg/dL) 68 L 87 (75-99) mg/dL POC Glu Fisher Eel Spear ID Davon Keenji Franz Darshana Urine Opiates Screen Not Detected (NotDetected) Ur Oxycodone Screen Not Detected (NotDetected) Urine Methadone Screen Not Detected (NotDetected) Ur Propoxyphene Screen Not Detected (NotDetected) Ur Barbiturates Screen Not Detected (NotDetected) U Tricyclic Antidepress Detected H (NotDetected) Ur Phencyclidine Scrn Not Detected (NotDetected) Ur Amphetamines Screen Not Detected (NotDetected) U Methamphetamines Scrn Not Detected (NotDetected) U Benzodiazepines Scrn Not Detected (NotDetected) Urine Cocaine Screen Not Detected (NotDetected) U Marijuana (THC) Screen Not Detected (NotDetected) Disposition <Yumiko Gandhi - Last Filed: 08/02/18 23:55> Is patient prescribed a controlled substance at d/c from ED?: No <Marlene Velázquez - Last Filed: 08/03/18 02:20> Clinical Impression: Alcohol abuse Disposition: HOME SELF-CARE Condition: Stable Instructions: Abuse of Alcohol (ED) Referrals: Kermit Partida MD [Primary Care Provider] - 1-2 days
[2018-08-02 19:19] LABS: Amphetamine Screen,Urine Not Detected (NotDetected); Barbiturate Screen,Urine Not Detected (NotDetected); Benzodiazepines Screen,Urine Not Detected (NotDetected); Cocaine Screen,Urine Not Detected (NotDetected); Methadone Screen, Urine Not Detected (NotDetected); Opiate Screen,Urine Not Detected (NotDetected); Oxycodone Screen, Urine Not Detected (NotDetected); Phencyclidine Screen,Urine Not Detected (NotDetected); Tricyclic Antidepressant,Urine Detected (NotDetected); Urn Cannabinoid Scrn Not Detected (NotDetected)
[2018-08-02 20:18] LABS: Glucose,Whole Blood 87 mg/dL (75-99)
[2018-08-02 20:18] LABS: Glucose,Whole Blood 68 mg/dL (75-99)
[2018-08-03 02:51] VITALS: BP 117/90; PULSE 53
== END 2018-08-03 02:48 | disposition home or self-care (01) ==
LOC: EC 18:11
DX: F10.10 Alcohol abuse, uncomplicated (principal); L90.5 Scar conditions and fibrosis of skin; R45.851 Suicidal ideations; I10 Essential (primary) hypertension; F31.30 Bipolar disorder, current episode depressed, mild or moderate severity, unspecified; F41.9 Anxiety disorder, unspecified; F17.200 Nicotine dependence, unspecified, uncomplicated; Z79.899 Other long term (current) drug therapy; Y90.7 Blood alcohol level of 200-239 mg/100 ml
CPT/HCPCS: 36415; 80306; 82075; 99285

== ENCOUNTER 2018-08-08 19:00 | Emergency (ER) | payer OTHER ==
[2018-08-08 20:43] LABS: Amphetamine Screen,Urine Not Detected (NotDetected); Barbiturate Screen,Urine Not Detected (NotDetected); Benzodiazepines Screen,Urine Not Detected (NotDetected); Cocaine Screen,Urine Not Detected (NotDetected); Methadone Screen, Urine Not Detected (NotDetected); Opiate Screen,Urine Not Detected (NotDetected); Oxycodone Screen, Urine Not Detected (NotDetected); Phencyclidine Screen,Urine Not Detected (NotDetected); Tricyclic Antidepressant,Urine Not Detected (NotDetected); Urn Cannabinoid Scrn Not Detected (NotDetected)
--- NOTE | 2018-08-08 21:28 | ED ---
General Adult HPI - General Source: patient Mode of arrival: wheelchair Limitations: no limitations <Anibal Lynch - Last Filed: 08/08/18 23:13> <Max Head - Last Filed: 08/09/18 03:33> - General Chief complaint: Psychiatric Symptoms Stated complaint: mental health - History of Present Illness Initial comments: Dictation was produced using [employer] dictation software. please excuse any grammatical, word or spelling errors. Chief Complaint: 53-year-old homeless man presents with suicidal ideation. History of Present Illness: Patient is a 53-year-old male presents with suicidal ideation. Patient states he was drinking alcohol today. He feels severely depressed and wants to jump in front of the car. Denies any homicidal ideation. Denies any visual auditory hallucinations. Patient has no other complaints at this time. He states he is homeless The ROS documented in this emergency department record has been reviewed and confirmed by me. Those systems with pertinent positive or negative responses have been documented in the HPI. All other systems are other negative and/or noncontributory. (Anibal Lynch) - Related Data Home Medications Medication Instructions Recorded Confirmed FLUoxetine HCL [PROzac] 20 mg PO DAILY 06/06/18 08/08/18 Mirtazapine [Remeron] 30 mg PO HS 06/06/18 08/08/18 QUEtiapine FUMARATE [SEROquel] 300 mg PO HS 06/06/18 08/08/18 [place] Carbonate 600 mg PO HS 06/24/18 08/08/18 Gabapentin 800 mg PO TID 07/15/18 08/08/18 Naltrexone HCl [Revia] 50 mg PO DAILY 07/15/18 08/08/18 Terbinafine [LamISIL] 250 mg PO DAILY 07/15/18 08/08/18 Atorvastatin [Lipitor] 20 mg PO HS 08/02/18 08/08/18 Loratadine [Claritin] 10 mg PO DAILY 08/02/18 08/08/18 amLODIPine [Norvasc] 2.5 mg PO DAILY 08/02/18 08/08/18 FLUoxetine HCL [PROzac] 20 mg PO DAILY 08/08/18 08/08/18 Vivitrol 360mg Er Powder Susp 380 mg IM Q30D 08/08/18 08/08/18 Allergies Allergy/AdvReac Type Severity Reaction Status Date / Time No Known Allergies Allergy Verified 08/08/18 20:09 Review of Systems ROS Other: All systems not noted in ROS Statement are negative. <nAibal Lynch - Last Filed: 08/08/18 23:13> ROS Other: All systems not noted in ROS Statement are negative. <Max Head - Last Filed: 08/09/18 03:33> ROS Statement: Those systems with pertinent positive or pertinent negative responses have been documented in the HPI. Past Medical History Past Medical History: Chest Pain / Angina, Hypertension Additional Past Medical History / Comment(s): ETOH History of Any Multi-Drug Resistant Organisms: None Reported Past Surgical History: Orthopedic Surgery Additional Past Surgical History / Comment(s): Right knee surgery and salma placed in left femur, 3 surgeries on his eyes. Past Anesthesia/Blood Transfusion Reactions: No Reported Reaction Past Psychological History: Anxiety, Bipolar, Depression, Schizoaffective Disorder Smoking Status: Current every day smoker Past Alcohol Use History: Abuse, Daily, Heavy Past Drug Use History: None Reported - Past Family History Mother Additional Family Medical History / Comment(s): Mother at age 36 from motor vehicle accident. His father is also past but does not know the cause or his age. Patient has 3 brothers that are apparently without major medical problems. <Anibal Lynch - Last Filed: 08/08/18 23:13> General Exam Limitations: no limitations <Anibal Lynch - Last Filed: 08/08/18 23:13> <Max Head - Last Filed: 08/09/18 03:33> - General Exam Comments Initial Comments: PHYSICAL EXAM: General Impression: Alert and oriented x3, not in acute distress HEENT: Normocephalic atraumatic, extra-ocular movements intact, pupils equal and reactive to light bilaterally, mucous membranes moist. Cardiovascular: Heart regular rate and rhythm, S1&S2 audible, no murmurs, rubs or gallops Chest: Lungs clear to auscultation bilaterally, no rhonchi, no wheeze, no rales Abdomen: Bowel sounds present, abdomen soft, non-tender, non-distended, no organomegaly Musculoskeletal: Pulses present and equal in all extremities, no peripheral edema Motor: Power 5/5 bilaterally, no focal deficits noted Neurological: CN II-XII grossly intact, no focal motor or sensory deficits noted Skin: Intact with no visualized rashes Psych: Normal affect and mood (Anibal Lynch) Vital Signs 08/08/18 19:18 Temperature 98.0 F Pulse Rate 84 Respiratory 20 Rate Blood Pressure 119/86 O2 Sat by Pulse 97 Oximetry Medical Decision Making <Anibal Lynch - Last Filed: 08/08/18 23:13> <Max Head - Last Filed: 08/09/18 03:33> - Medical Decision Making ED course: 53-year-old male presents with suicidal ideation and depression. Vital signs upon arrival are within acceptable limits. Patient is well- appearing. Patient has positive breath alcohol test.. Pending sobriety and EPS evaluation. Patient is sent out to oncoming physician for follow-up of clinical sobriety and EPS recommendations. (Anibal Lynch) - Lab Data Lab Results 08/08/18 Range/Units 20:10 Urine Opiates Screen Not Detected (NotDetected) Ur Oxycodone Screen Not Detected (NotDetected) Urine Methadone Screen Not Detected (NotDetected) Ur Propoxyphene Screen Not Detected (NotDetected) Ur Barbiturates Screen Not Detected (NotDetected) U Tricyclic Antidepress Not Detected (NotDetected) Ur Phencyclidine Scrn Not Detected (NotDetected) Ur Amphetamines Screen Not Detected (NotDetected) U Methamphetamines Scrn Not Detected (NotDetected) U Benzodiazepines Scrn Not Detected (NotDetected) Urine Cocaine Screen Not Detected (NotDetected) U Marijuana (THC) Screen Not Detected (NotDetected) Disposition <Anibal Lynch - Last Filed: 08/08/18 23:13> Is patient prescribed a controlled substance at d/c from ED?: No <Max Head - Last Filed: 08/09/18 03:33> Clinical Impression: Alcohol abuse Disposition: HOME SELF-CARE Condition: Fair Instructions: Alcohol Intoxication (ED) Referrals: Kermit Partida MD [Primary Care Provider] - 1-2 days
[2018-08-09 04:00] VITALS: BP 134/91; PULSE 94; RESP 17; TEMP 98.4
== END 2018-08-09 04:28 | disposition home or self-care (01) ==
LOC: EC 19:00
DX: F10.10 Alcohol abuse, uncomplicated (principal); I10 Essential (primary) hypertension; F25.9 Schizoaffective disorder, unspecified; F31.9 Bipolar disorder, unspecified; F41.9 Anxiety disorder, unspecified; F17.200 Nicotine dependence, unspecified, uncomplicated; Z79.899 Other long term (current) drug therapy; Z59.0 Homelessness
CPT/HCPCS: 80306; 82075; 99285

== ENCOUNTER 2018-08-09 17:55 | Emergency (ER) | payer OTHER ==
[2018-08-09 21:17] LABS: Amphetamine Screen,Urine Not Detected (NotDetected); Barbiturate Screen,Urine Not Detected (NotDetected); Benzodiazepines Screen,Urine Not Detected (NotDetected); Cocaine Screen,Urine Not Detected (NotDetected); Methadone Screen, Urine Not Detected (NotDetected); Opiate Screen,Urine Not Detected (NotDetected); Oxycodone Screen, Urine Not Detected (NotDetected); Phencyclidine Screen,Urine Not Detected (NotDetected); Tricyclic Antidepressant,Urine Detected (NotDetected); Urn Cannabinoid Scrn Not Detected (NotDetected)
--- NOTE | 2018-08-09 23:47 | ED ---
General Adult HPI - General Source: patient, RN notes reviewed Mode of arrival: ambulatory Limitations: no limitations <Bala Rodgers - Last Filed: 08/09/18 23:48> <Max Head - Last Filed: 08/10/18 04:38> - General Chief complaint: Psychiatric Symptoms Stated complaint: Petition Time Seen by Provider: 08/09/18 18:11 - History of Present Illness Initial comments: 53-year-old male well-known to this emergency department presents for chief complaint of suicidal thoughts. Patient was brought in by [facility] department. Patient states he is having suicidal thoughts like he has most days. He states he does have a plan which includes jumping in front of a car. He states he does have thoughts of hurting other individuals but does not have any thoughts of hurting anyone specific. He does not have any plans of harming anyone else. Patient does admit to drinking today. Patient does have a history of bipolar disorder, depression, schizoaffective disorder, and anxiety. Patient is on Seroquel and Remeron for this which he states he is taking. Patient has no other complaints at this time including shortness of breath, chest pain, abdominal pain, nausea or vomiting, headache, or visual changes. ( Bala Rodgers) - Related Data Home Medications Medication Instructions Recorded Confirmed FLUoxetine HCL [PROzac] 20 mg PO DAILY 06/06/18 08/09/18 Mirtazapine [Remeron] 30 mg PO HS 06/06/18 08/09/18 QUEtiapine FUMARATE [SEROquel] 300 mg PO HS 06/06/18 08/09/18 [place] Carbonate 600 mg PO HS 06/24/18 08/09/18 Gabapentin 800 mg PO TID 07/15/18 08/09/18 Naltrexone HCl [Revia] 50 mg PO DAILY 07/15/18 08/09/18 Terbinafine [LamISIL] 250 mg PO DAILY 07/15/18 08/09/18 Atorvastatin [Lipitor] 20 mg PO DAILY 08/02/18 08/09/18 Loratadine [Claritin] 10 mg PO DAILY 08/02/18 08/09/18 amLODIPine [Norvasc] 2.5 mg PO DAILY 08/02/18 08/09/18 Vivitrol 380mg Powder For 380 mg IM Q28D 08/09/18 08/09/18 Suspension Extended Release Allergies Allergy/AdvReac Type Severity Reaction Status Date / Time No Known Allergies Allergy Verified 08/09/18 19:41 Review of Systems ROS Other: All systems not noted in ROS Statement are negative. <Bala Rodgers - Last Filed: 08/09/18 23:48> ROS Other: All systems not noted in ROS Statement are negative. <Max Head - Last Filed: 08/10/18 04:38> ROS Statement: Those systems with pertinent positive or pertinent negative responses have been documented in the HPI. Past Medical History Past Medical History: Chest Pain / Angina, Hypertension Additional Past Medical History / Comment(s): ETOH History of Any Multi-Drug Resistant Organisms: None Reported Past Surgical History: Orthopedic Surgery Additional Past Surgical History / Comment(s): Right knee surgery and salma placed in left femur, 3 surgeries on his eyes. Past Anesthesia/Blood Transfusion Reactions: No Reported Reaction Past Psychological History: Anxiety, Bipolar, Depression, Schizoaffective Disorder Smoking Status: Current every day smoker Past Alcohol Use History: Abuse, Daily, Heavy Past Drug Use History: None Reported - Past Family History Mother Additional Family Medical History / Comment(s): Mother at age 36 from motor vehicle accident. His father is also past but does not know the cause or his age. Patient has 3 brothers that are apparently without major medical problems. <Bala Rodgers P - Last Filed: 08/09/18 23:48> General Exam Limitations: no limitations General appearance: alert, in no apparent distress Head exam: Present: atraumatic, normocephalic, normal inspection Eye exam: Present: normal appearance ENT exam: Present: normal exam, mucous membranes moist Neck exam: Present: normal inspection, full ROM. Absent: tenderness, meningismus, lymphadenopathy Respiratory exam: Present: normal lung sounds bilaterally. Absent: respiratory distress, wheezes, rales, rhonchi, stridor Cardiovascular Exam: Present: regular rate, normal rhythm, normal heart sounds. Absent: systolic murmur, diastolic murmur, rubs, gallop, clicks Extremities exam: Present: other ([place] is appear within normal limits.) Neurological exam: Present: alert, oriented X3, CN II-XII intact Psychiatric exam: Present: suicidal ideation <Bala Rodgers - Last Filed: 08/09/18 23:48> Vital Signs 08/09/18 08/10/18 18:21 00:00 Temperature 97.8 F Pulse Rate 88 104 H Respiratory 18 16 Rate Blood Pressure 155/103 102/68 O2 Sat by Pulse 95 98 Oximetry Medical Decision Making <Bala Rodgers - Last Filed: 08/09/18 23:48> <Max Head - Last Filed: 08/10/18 04:38> - Medical Decision Making 53-year-old male presents to the emergency department for a chief complaint of suicidal thoughts. Patient states he has these thoughts daily. Patient states he does have a plan of jumping in front of a car. Patient was last seen in the emergency department yesterday for this. He states he thoughts of harming other people but no one specific and does not have a plan for this. Patient is alert and oriented 3. He appears comfortable and is lying in bed. BAT 0.203, patient was held until sober. Care was handed over to Dr. Head at approximately 12 AM (Bala Rodgers) - Lab Data Lab Results 08/09/18 Range/Units 20:58 Urine Opiates Screen Not Detected (NotDetected) Ur Oxycodone Screen Not Detected (NotDetected) Urine Methadone Screen Not Detected (NotDetected) Ur Propoxyphene Screen Not Detected (NotDetected) Ur Barbiturates Screen Not Detected (NotDetected) U Tricyclic Antidepress Detected H (NotDetected) Ur Phencyclidine Scrn Not Detected (NotDetected) Ur Amphetamines Screen Not Detected (NotDetected) U Methamphetamines Scrn Not Detected (NotDetected) U Benzodiazepines Scrn Not Detected (NotDetected) Urine Cocaine Screen Not Detected (NotDetected) U Marijuana (THC) Screen Not Detected (NotDetected) Disposition <Bala Rodgers - Last Filed: 08/09/18 23:48> Is patient prescribed a controlled substance at d/c from ED?: No <Max Head - Last Filed: 08/10/18 04:38> Clinical Impression: Alcohol abuse Disposition: HOME SELF-CARE Condition: Fair Instructions: Alcohol Intoxication (ED) Referrals: Kermit Partida MD [Primary Care Provider] - 1-2 days
[2018-08-10 05:23] VITALS: BP 109/64; PULSE 90; RESP 18; TEMP 98
== END 2018-08-10 05:23 | disposition home or self-care (01) ==
LOC: EC 17:55
DX: F10.10 Alcohol abuse, uncomplicated (principal); R45.851 Suicidal ideations; R45.850 Homicidal ideations; F41.9 Anxiety disorder, unspecified; F25.0 Schizoaffective disorder, bipolar type; F25.1 Schizoaffective disorder, depressive type; I10 Essential (primary) hypertension; F17.200 Nicotine dependence, unspecified, uncomplicated; Z79.899 Other long term (current) drug therapy
CPT/HCPCS: 80306; 82075; 99285

== ENCOUNTER 2018-08-10 14:11 | Emergency (ER) | payer OTHER ==
[2018-08-10 14:18] VITALS: RESP 16
--- NOTE | 2018-08-10 14:35 | ED ---
General Adult HPI - General Chief complaint: Alcohol Stated complaint: Etoh Time Seen by Provider: 08/10/18 14:18 Source: patient, police, EMS, RN notes reviewed Mode of arrival: EMS Limitations: no limitations - History of Present Illness Initial comments: Patient is a pleasant 53-year-old male presenting to the emergency department for alcohol intoxication. Patient states he does drink regularly. Patient has no complaints otherwise. Patient was brought in by police after being found sleeping outside. Patient denies injury. Patient denies any pain. - Related Data Home Medications Medication Instructions Recorded Confirmed FLUoxetine HCL [PROzac] 20 mg PO DAILY 06/06/18 08/10/18 Mirtazapine [Remeron] 30 mg PO HS 06/06/18 08/10/18 QUEtiapine FUMARATE [SEROquel] 300 mg PO HS 06/06/18 08/10/18 [place] Carbonate 600 mg PO HS 06/24/18 08/10/18 Gabapentin 800 mg PO TID 07/15/18 08/10/18 Naltrexone HCl [Revia] 50 mg PO DAILY 07/15/18 08/10/18 Terbinafine [LamISIL] 250 mg PO DAILY 07/15/18 08/10/18 Atorvastatin [Lipitor] 20 mg PO DAILY 08/02/18 08/10/18 Loratadine [Claritin] 10 mg PO DAILY 08/02/18 08/10/18 amLODIPine [Norvasc] 2.5 mg PO DAILY 08/02/18 08/10/18 Vivitrol 380mg Powder For 380 mg IM Q28D 08/09/18 08/10/18 Suspension Extended Release Allergies Allergy/AdvReac Type Severity Reaction Status Date / Time No Known Allergies Allergy Verified 08/10/18 14:40 Review of Systems ROS Statement: Those systems with pertinent positive or pertinent negative responses have been documented in the HPI. ROS Other: All systems not noted in ROS Statement are negative. Constitutional: Denies: fever Eyes: Denies: eye pain ENT: Denies: ear pain Respiratory: Denies: cough Cardiovascular: Denies: chest pain Endocrine: Denies: fatigue Gastrointestinal: Denies: abdominal pain Genitourinary: Denies: dysuria Musculoskeletal: Denies: back pain Skin: Denies: rash Neurological: Denies: weakness Past Medical History Past Medical History: Chest Pain / Angina, Hypertension Additional Past Medical History / Comment(s): ETOH History of Any Multi-Drug Resistant Organisms: None Reported Past Surgical History: Orthopedic Surgery Additional Past Surgical History / Comment(s): Right knee surgery and salma placed in left femur, 3 surgeries on his eyes. Past Anesthesia/Blood Transfusion Reactions: No Reported Reaction Past Psychological History: Anxiety, Bipolar, Depression, Schizoaffective Disorder Smoking Status: Current every day smoker Past Alcohol Use History: Abuse, Daily, Heavy Past Drug Use History: None Reported - Past Family History Mother Additional Family Medical History / Comment(s): Mother at age 36 from motor vehicle accident. His father is also past but does not know the cause or his age. Patient has 3 brothers that are apparently without major medical problems. General Exam Limitations: no limitations General appearance: alert, in no apparent distress, other (EtOH odor) Head exam: Present: atraumatic, normocephalic Eye exam: Present: normal appearance Neck exam: Present: normal inspection. Absent: tenderness Respiratory exam: Present: normal lung sounds bilaterally Cardiovascular Exam: Present: regular rate, normal rhythm GI/Abdominal exam: Present: soft. Absent: tenderness Extremities exam: Present: normal inspection Neurological exam: Present: alert, oriented X3. Absent: motor sensory deficit Psychiatric exam: Present: normal affect, normal mood Skin exam: Present: normal color Course Vital Signs 08/10/18 14:15 Temperature 96 F L Pulse Rate 93 Respiratory 16 Rate Blood Pressure 135/95 O2 Sat by Pulse 99 Oximetry Medical Decision Making - Medical Decision Making Patient reevaluated. Patient alert and appropriate. Steady gait. Disposition Clinical Impression: Alcohol intoxication Disposition: HOME SELF-CARE Condition: Stable Instructions: Alcohol Intoxication (ED) Additional Instructions: Discontinue alcohol use. Please follow-up with primary care physician. Return for worsening symptoms. Is patient prescribed a controlled substance at d/c from ED?: No Referrals: Kermit Partida MD [Primary Care Provider] - 1-2 days Time of Disposition: 18:32
[2018-08-10 19:04] VITALS: BP 102/56; PULSE 88; TEMP 97.4
== END 2018-08-10 19:00 | disposition home or self-care (01) ==
LOC: EC 14:11
DX: F10.129 Alcohol abuse with intoxication, unspecified (principal); I10 Essential (primary) hypertension; F31.9 Bipolar disorder, unspecified; F25.9 Schizoaffective disorder, unspecified; F41.9 Anxiety disorder, unspecified; F17.200 Nicotine dependence, unspecified, uncomplicated; Z79.899 Other long term (current) drug therapy
CPT/HCPCS: 82075; 99284

== ENCOUNTER 2018-08-15 17:19 | Emergency (ER) | payer OTHER ==
--- NOTE | 2018-08-15 18:01 | ED ---
General Adult HPI - General Source: patient Mode of arrival: wheelchair Limitations: no limitations <Anibal Lynch - Last Filed: 08/15/18 19:05> <Marlene Velázquez - Last Filed: 08/16/18 00:27> - General Chief complaint: Psychiatric Symptoms Stated complaint: eps eval? - History of Present Illness Initial comments: Dictation was produced using [employer] dictation software. please excuse any grammatical, word or spelling errors. Chief Complaint: 53-year-old homeless male presents with suicidal ideation. History of Present Illness: Patient is a 53-year-old male with past medical history of EtOH abuse and schizophrenia presents with suicidal ideation. States he wants to jump frontal part. Patient is well-known to emergency department for multiple visitations for the same complaint. This is patient's 7 times in the last 30 days. The ROS documented in this emergency department record has been reviewed and confirmed by me. Those systems with pertinent positive or negative responses have been documented in the HPI. All other systems are other negative and/or noncontributory. (Anibal Lynch) - Related Data Home Medications Medication Instructions Recorded Confirmed FLUoxetine HCL [PROzac] 20 mg PO DAILY 06/06/18 08/15/18 Mirtazapine [Remeron] 30 mg PO HS 06/06/18 08/15/18 QUEtiapine FUMARATE [SEROquel] 300 mg PO HS 06/06/18 08/15/18 [place] Carbonate 600 mg PO HS 06/24/18 08/15/18 Gabapentin 800 mg PO TID 07/15/18 08/15/18 Naltrexone HCl [Revia] 50 mg PO DAILY 07/15/18 08/15/18 Terbinafine [LamISIL] 250 mg PO DAILY 07/15/18 08/15/18 Atorvastatin [Lipitor] 20 mg PO DAILY 08/02/18 08/15/18 Loratadine [Claritin] 10 mg PO DAILY 08/02/18 08/15/18 amLODIPine [Norvasc] 2.5 mg PO DAILY 08/02/18 08/15/18 Vivitrol 380mg Powder For 380 mg IM Q28D 08/09/18 08/15/18 Suspension Extended Release Allergies Allergy/AdvReac Type Severity Reaction Status Date / Time No Known Allergies Allergy Verified 08/15/18 18:28 Review of Systems ROS Other: All systems not noted in ROS Statement are negative. <Anibal Lynch - Last Filed: 08/15/18 19:05> ROS Other: All systems not noted in ROS Statement are negative. <Marlene Velázquez - Last Filed: 08/16/18 00:27> ROS Statement: Those systems with pertinent positive or pertinent negative responses have been documented in the HPI. Past Medical History Past Medical History: Chest Pain / Angina, Hypertension Additional Past Medical History / Comment(s): ETOH History of Any Multi-Drug Resistant Organisms: None Reported Past Surgical History: Orthopedic Surgery Additional Past Surgical History / Comment(s): Right knee surgery and salma placed in left femur, 3 surgeries on his eyes. Past Anesthesia/Blood Transfusion Reactions: No Reported Reaction Past Psychological History: Anxiety, Bipolar, Depression, Schizoaffective Disorder Smoking Status: Current every day smoker Past Alcohol Use History: Abuse, Daily, Heavy Past Drug Use History: None Reported - Past Family History Mother Additional Family Medical History / Comment(s): Mother at age 36 from motor vehicle accident. His father is also past but does not know the cause or his age. Patient has 3 brothers that are apparently without major medical problems. <Anibal Lynch - Last Filed: 08/15/18 19:05> General Exam Limitations: no limitations <Anibal Lynch - Last Filed: 08/15/18 19:05> <Marlene Velázquez - Last Filed: 08/16/18 00:27> - General Exam Comments Initial Comments: PHYSICAL EXAM: General Impression: Alert and oriented x3, not in acute distress HEENT: Normocephalic atraumatic, extra-ocular movements intact, pupils equal and reactive to light bilaterally, mucous membranes moist. Cardiovascular: Heart regular rate and rhythm, S1&S2 audible, no murmurs, rubs or gallops Chest: Lungs clear to auscultation bilaterally, no rhonchi, no wheeze, no rales Abdomen: Bowel sounds present, abdomen soft, non-tender, non-distended, no organomegaly Musculoskeletal: Pulses present and equal in all extremities, no peripheral edema Motor: Power 5/5 bilaterally, no focal deficits noted Neurological: CN II-XII grossly intact, no focal motor or sensory deficits noted Skin: Intact with no visualized rashes Psych: Normal affect and mood (Anibal Lynch) Vital Signs 08/15/18 08/15/18 17:20 20:00 Temperature 97.6 F Pulse Rate 68 Respiratory 18 17 Rate Blood Pressure 156/93 O2 Sat by Pulse 97 Oximetry Medical Decision Making <Anibal Lynch - Last Filed: 08/15/18 19:05> <Marlene Velázquez - Last Filed: 08/16/18 00:27> - Medical Decision Making ED course: 53-year-old male past medical history of schizophrenia, homelessness and alcohol abuse presents with suicidal ideation. Patient states he was interpreted by the car. Vital signs upon arrival are within acceptable limits. Patient is well-appearing. Pending sobriety and then EPS evaluation. Patient care to be sent out to oncoming physician for follow-up of EPS evaluation. (Anibal Lynch) Patient care was signed out to me by Dr. Lynch at 9pm, patient currently intoxicated, awaiting sobriety to be evauated by [facility] nurse. Patient was seen and evaluated by EPS, they recommend discharge home with out patient follow up. Patient agreeable. (Marlene Velázquez) Disposition <Anibal Lynch - Last Filed: 08/15/18 19:05> Is patient prescribed a controlled substance at d/c from ED?: No <Marlene Velázquez - Last Filed: 08/16/18 00:27> Clinical Impression: Alcohol abuse Disposition: HOME SELF-CARE Referrals: None,Stated [Primary Care Provider] - 1-2 days
[2018-08-16 00:42] VITALS: BP 142/94; PULSE 110; RESP 18; TEMP 98
== END 2018-08-16 00:41 | disposition home or self-care (01) ==
LOC: EC 17:19
DX: F10.120 Alcohol abuse with intoxication, uncomplicated (principal); R45.851 Suicidal ideations; I10 Essential (primary) hypertension; I20.9 Angina pectoris, unspecified; F41.9 Anxiety disorder, unspecified; F31.9 Bipolar disorder, unspecified; F25.9 Schizoaffective disorder, unspecified; F17.200 Nicotine dependence, unspecified, uncomplicated; Z59.0 Homelessness; Z98.890 Other specified postprocedural states; Z79.899 Other long term (current) drug therapy
CPT/HCPCS: 82075; 99285

== ENCOUNTER 2018-08-19 14:08 | Emergency (ER) | payer OTHER ==
[2018-08-19 14:17] VITALS: BP 116/74; PULSE 76; RESP 16; TEMP 97.4
--- NOTE | 2018-08-19 14:38 | ED ---
General Adult HPI - General Chief complaint: Psychiatric Symptoms Stated complaint: Mental health Time Seen by Provider: 08/19/18 14:17 Source: patient, RN notes reviewed, old records reviewed Mode of arrival: ambulatory Limitations: no limitations - History of Present Illness Initial comments: Patient's a 53-year-old male presents to the emergency room today with chief complaint of suicidal ideation. Patient does admit that his had thoughts of jumping out in front of a car. He does admit that he's had thoughts in the past and has acted on them in the past. Patient states that he is currently on medication as been taking as prescribed. He states and he is currently staying in a [facility] [place] [facility]. States he does not like it there. Patient denies any thoughts of hurting anyone else. He denies any other physical complaints. - Related Data Home Medications Medication Instructions Recorded Confirmed FLUoxetine HCL [PROzac] 20 mg PO DAILY 06/06/18 08/19/18 Mirtazapine [Remeron] 30 mg PO HS 06/06/18 08/19/18 QUEtiapine FUMARATE [SEROquel] 300 mg PO HS 06/06/18 08/19/18 [place] Carbonate 600 mg PO HS 06/24/18 08/19/18 Gabapentin 800 mg PO TID 07/15/18 08/19/18 Naltrexone HCl [Revia] 50 mg PO DAILY 07/15/18 08/19/18 Terbinafine [LamISIL] 250 mg PO DAILY 07/15/18 08/19/18 Atorvastatin [Lipitor] 20 mg PO DAILY 08/02/18 08/19/18 Loratadine [Claritin] 10 mg PO DAILY 08/02/18 08/19/18 amLODIPine [Norvasc] 2.5 mg PO DAILY 08/02/18 08/19/18 Vivitrol 380mg Powder For 380 mg IM Q28D 08/09/18 08/19/18 Suspension Extended Release Allergies Allergy/AdvReac Type Severity Reaction Status Date / Time No Known Allergies Allergy Verified 08/19/18 14:28 Review of Systems ROS Statement: Those systems with pertinent positive or pertinent negative responses have been documented in the HPI. ROS Other: All systems not noted in ROS Statement are negative. Past Medical History Past Medical History: Chest Pain / Angina, Hypertension Additional Past Medical History / Comment(s): ETOH History of Any Multi-Drug Resistant Organisms: None Reported Past Surgical History: Orthopedic Surgery Additional Past Surgical History / Comment(s): Right knee surgery and salma placed in left femur, 3 surgeries on his eyes. Past Anesthesia/Blood Transfusion Reactions: No Reported Reaction Past Psychological History: Anxiety, Bipolar, Depression, Schizoaffective Disorder Smoking Status: Current every day smoker Past Alcohol Use History: Abuse, Daily, Heavy Past Drug Use History: None Reported - Past Family History Mother Additional Family Medical History / Comment(s): Mother at age 36 from motor vehicle accident. His father is also past but does not know the cause or his age. Patient has 3 brothers that are apparently without major medical problems. General Exam - General Exam Comments Initial Comments: General: The patient is awake and alert, in no distress, and does not appear acutely ill. Eye: Pupils are equal, round and reactive to light. Extra-ocular movements are intact. No nystagmus. There is normal conjunctiva bilaterally. No signs of icterus. Ears, nose, mouth and throat: There are moist mucous membranes and no oral lesions. Neck: The neck is supple. Cardiovascular: There is a regular rate and rhythm. No murmur, rub or gallop is appreciated. Respiratory: Lungs are clear to auscultation, respirations are non-labored, breath sounds are equal. No wheezes, stridor, rales, or rhonchi. Musculoskeletal: Normal ROM, no tenderness. Sensation intact. Strength 5/5. Pulses equal bilaterally 2+. Neurological: A&O x 3. CN II-XII intact, There are no obvious motor or sensory deficits. Coordination appears grossly intact. Speech is normal. Skin: Skin is warm and dry and no rashes or lesions are noted. Psychiatric: Cooperative. Disheveled appearance. Limitations: no limitations Course Vital Signs 08/19/18 14:14 Temperature 97.4 F L Pulse Rate 76 Respiratory 16 Rate Blood Pressure 116/74 O2 Sat by Pulse 98 Oximetry Medical Decision Making - Medical Decision Making Patient was seen here in the emergency room by mental health. They recommend the patient may be discharged home. [facility] will be following up with the patient. - Lab Data Lab Results 08/19/18 Range/Units 14:38 Urine Opiates Screen Not Detected (NotDetected) Ur Oxycodone Screen Not Detected (NotDetected) Urine Methadone Screen Not Detected (NotDetected) Ur Propoxyphene Screen Not Detected (NotDetected) Ur Barbiturates Screen Not Detected (NotDetected) U Tricyclic Antidepress Not Detected (NotDetected) Ur Phencyclidine Scrn Not Detected (NotDetected) Ur Amphetamines Screen Not Detected (NotDetected) U Methamphetamines Scrn Not Detected (NotDetected) U Benzodiazepines Scrn Not Detected (NotDetected) Urine Cocaine Screen Not Detected (NotDetected) U Marijuana (THC) Screen Not Detected (NotDetected) Disposition Clinical Impression: Bipolar disorder Disposition: HOME SELF-CARE Condition: Stable Is patient prescribed a controlled substance at d/c from ED?: No Referrals: Kermit Partida MD [Primary Care Provider] - 1-2 days Time of Disposition: 19:55
[2018-08-19 15:15] LABS: Amphetamine Screen,Urine Not Detected (NotDetected); Barbiturate Screen,Urine Not Detected (NotDetected); Benzodiazepines Screen,Urine Not Detected (NotDetected); Cocaine Screen,Urine Not Detected (NotDetected); Methadone Screen, Urine Not Detected (NotDetected); Opiate Screen,Urine Not Detected (NotDetected); Oxycodone Screen, Urine Not Detected (NotDetected); Phencyclidine Screen,Urine Not Detected (NotDetected); Tricyclic Antidepressant,Urine Not Detected (NotDetected); Urn Cannabinoid Scrn Not Detected (NotDetected)
== END 2018-08-19 20:01 | disposition home or self-care (01) ==
LOC: EC 14:08
DX: F31.9 Bipolar disorder, unspecified (principal); R45.851 Suicidal ideations; I10 Essential (primary) hypertension; F25.9 Schizoaffective disorder, unspecified; F41.9 Anxiety disorder, unspecified; F17.200 Nicotine dependence, unspecified, uncomplicated; Z79.899 Other long term (current) drug therapy; Z59.0 Homelessness
CPT/HCPCS: 80306; 82075; 99285

== ENCOUNTER 2018-08-20 18:42 | Emergency (ER) | payer OTHER ==
[2018-08-20 18:49] VITALS: BP 117/78; PULSE 82; RESP 20; TEMP 97.6
--- NOTE | 2018-08-20 22:12 | ED ---
Psych HPI - General Source: patient Mode of arrival: ambulatory <Yumiko Gandhi - Last Filed: 08/21/18 00:37> <Marlene Velázquez - Last Filed: 08/21/18 02:04> - General Chief Complaint: Psychiatric Symptoms Stated Complaint: mental health - History of Present Illness Initial Comments: 53-year-old male with past medical history of previous suicidal ideations and plans presents today for chief complaint of "I dont feel like living anymore", Pt states that he has had suicidal ideations and thoughts for quite some time now. He states today he was depressed more than usual and thought about jumping in front of a slow moving vehicle. pt denies homicidal ideations. Pt states that he gets his psych mediations at [facility]. Pt admits to anxiety. Range of ROS negative, patient denies any recent fever, chills, shortness of breath, chest pain, back pain, abdominal pain, nausea or vomiting, numbness or tingling, dysuria or hematuria, constipation or diarrhea, headaches or visual changes, or any other complaints. Pt does admit to having 4 large beers this morning. Upon arrival pt blood alcohol elevated. (Yumiko Gandhi) - Related Data Home Medications Medication Instructions Recorded Confirmed FLUoxetine HCL [PROzac] 20 mg PO DAILY 06/06/18 08/20/18 Mirtazapine [Remeron] 30 mg PO HS 06/06/18 08/20/18 QUEtiapine FUMARATE [SEROquel] 300 mg PO HS 06/06/18 08/20/18 [place] Carbonate 600 mg PO HS 06/24/18 08/20/18 Gabapentin 800 mg PO TID 07/15/18 08/20/18 Naltrexone HCl [Revia] 50 mg PO DAILY 07/15/18 08/20/18 Terbinafine [LamISIL] 250 mg PO DAILY 07/15/18 08/20/18 Atorvastatin [Lipitor] 20 mg PO DAILY 08/02/18 08/20/18 Loratadine [Claritin] 10 mg PO DAILY 08/02/18 08/20/18 amLODIPine [Norvasc] 2.5 mg PO DAILY 08/02/18 08/20/18 Vivitrol 380mg Powder For 380 mg IM Q28D 08/09/18 08/20/18 Suspension Extended Release Allergies Allergy/AdvReac Type Severity Reaction Status Date / Time No Known Allergies Allergy Verified 08/20/18 19:24 Review of Systems ROS Other: All systems not noted in ROS Statement are negative. Constitutional: Denies: fever, chills, night sweats Eyes: Denies: eye pain ENT: Denies: ear pain, throat pain, dental pain Respiratory: Denies: cough, dyspnea, wheezes, hemoptysis, stridor Cardiovascular: Denies: chest pain, palpitations Endocrine: Denies: fatigue Gastrointestinal: Denies: abdominal pain, nausea, vomiting, diarrhea, constipation Genitourinary: Denies: urgency, dysuria, frequency Musculoskeletal: Denies: back pain Skin: Denies: rash, lesions Neurological: Denies: headache, weakness, numbness, paresthesias, confusion Psychiatric: Reports: anxiety, depression, suicidal thoughts. Denies: auditory hallucinations, visual hallucinations, homicidal thoughts <Yumiko Gandhi L - Last Filed: 08/21/18 00:37> ROS Other: All systems not noted in ROS Statement are negative. <Marlene Velázquez - Last Filed: 08/21/18 02:04> ROS Statement: Those systems with pertinent positive or pertinent negative responses have been documented in the HPI. Past Medical History Past Medical History: Chest Pain / Angina, Hypertension Additional Past Medical History / Comment(s): ETOH History of Any Multi-Drug Resistant Organisms: None Reported Past Surgical History: Orthopedic Surgery Additional Past Surgical History / Comment(s): Right knee surgery and salma placed in left femur, 3 surgeries on his eyes. Past Anesthesia/Blood Transfusion Reactions: No Reported Reaction Past Psychological History: Anxiety, Bipolar, Depression, Schizoaffective Disorder Smoking Status: Current every day smoker Past Alcohol Use History: Abuse, Daily, Heavy Past Drug Use History: None Reported - Past Family History Mother Additional Family Medical History / Comment(s): Mother at age 36 from motor vehicle accident. His father is also past but does not know the cause or his age. Patient has 3 brothers that are apparently without major medical problems. <Yumiko Gandhi - Last Filed: 08/21/18 00:37> General Exam Limitations: no limitations <Yumiko Gandhi - Last Filed: 08/21/18 00:37> <Marlene Velázquez - Last Filed: 08/21/18 02:04> - General Exam Comments Initial Comments: General: The patient is awake and alert, in no distress, and does not appear acutely ill. Eye: Pupils are equal, round and reactive to light, extra-ocular movements are intact. No nystagmus. There is normal conjunctiva bilaterally. No signs of icterus. Ears, nose, mouth and throat: There are moist mucous membranes and no oral lesions. Neck: The neck is supple, there is no tenderness or JVD. Cardiovascular: There is a regular rate and rhythm. No murmur, rub or gallop is appreciated. Respiratory: Lungs are clear to auscultation, respirations are non-labored, breath sounds are equal. No wheezes, stridor, rales, or rhonchi. Gastrointestinal: Soft, non-distended, non-tender abdomen without masses or organomegaly noted. There is no rebound or guarding present. No CVA tenderness. Bowel sounds are unremarkable. Musculoskeletal: Normal ROM, no tenderness. Strength 5/5. Sensation intact. Pulses equal bilaterally 2+. Neurological: A&O x 3. CN II-XII intact, There are no obvious motor or sensory deficits. Coordination appears grossly intact. Speech is normal. Skin: Skin is warm and dry and no rashes or lesions are noted. Psychiatric: Cooperative, appropriate mood & affect, normal judgment. (Yumiko Gandhi) Vital Signs 08/20/18 18:47 Temperature 97.6 F Pulse Rate 82 Respiratory 20 Rate Blood Pressure 117/78 O2 Sat by Pulse 98 Oximetry Medical Decision Making <Yumiko Gandhi - Last Filed: 08/21/18 00:37> <Marlene Velázquez - Last Filed: 08/21/18 02:04> - Medical Decision Making EPS aware of pt. I spoke with EPS nurse who stated the there is a plan in place pt has a scheduled appointment at [facility] on the for housing and work as well as rehabilitation for alcohol. They have collaborated with [facility] in order to create this plan. Once patient EWELINA below the legal limit of 0.08 pt will be evaluated, pt is medically cleared for evaluation. Pt was dispositioned with Dr. Velázquez who will continue care until EPS evaluation. (Yumiko Gandhi) Disposition <Yumiko Gandhi - Last Filed: 08/21/18 00:37> Is patient prescribed a controlled substance at d/c from ED?: No <Marlene Velázquez - Last Filed: 08/21/18 02:04> Clinical Impression: Alcohol abuse Disposition: HOME SELF-CARE Referrals: Kermit Partida MD [Primary Care Provider] - 1-2 days
== END 2018-08-21 03:06 | disposition home or self-care (01) ==
LOC: EC 18:42
DX: F10.10 Alcohol abuse, uncomplicated (principal); R45.851 Suicidal ideations; F41.9 Anxiety disorder, unspecified; I10 Essential (primary) hypertension; F31.9 Bipolar disorder, unspecified; F25.9 Schizoaffective disorder, unspecified; F17.200 Nicotine dependence, unspecified, uncomplicated; Z79.899 Other long term (current) drug therapy
CPT/HCPCS: 99285

== ENCOUNTER 2018-08-21 18:32 | Emergency (ER) | payer OTHER ==
[2018-08-21] MEDS ORDERED: ASPIRIN 81 MG PO STA (18:54)
[2018-08-21 19:46] LABS: Basophils % (A) 0 %; Eosinophils # (A) 0.3 k/uL (0-0.7); Eosinophils % (A) 2 %; Lymphocytes # (A) 2.6 k/uL (1.0-4.8); Lymphocytes % (A) 20 %; MCH 30.3 pg (25.0-35.0); MCHC 32.7 g/dL (31.0-37.0); MCV 92.7 fL (80.0-100.0); Mean Platelet Volume 7.1; Monocytes # (A) 0.9 k/uL (0-1.0); Monocytes % (A) 7 %; Neutrophils # (A) 9.1 k/uL (1.3-7.7); Neutrophils % (A) 69 %; Platelet Count 421 k/uL (150-450); RBC 4.96 m/uL (4.30-5.90); RDW 14.4 % (11.5-15.5); WBC 13.1 k/uL (3.8-10.6)
--- NOTE | 2018-08-21 19:49 | ED ---
Chest Pain HPI - General Chief Complaint: Chest Pain Stated Complaint: chest pain Time Seen by Provider: 08/21/18 18:53 Source: patient, RN notes reviewed Mode of arrival: ambulatory Limitations: no limitations - History of Present Illness Initial Comments: This is a 53-year-old male with no prior history of heart disease he states he had the onset some chest pain yesterday. He states the pain is midsternal nonradiating does get somewhat worse with movement and deep breathing no fevers chills nausea vomiting sweats cough or other symptoms. He is a smoker. Patient also states he is feeling depressed and suicidal please see the initial triage encounter note MD Complaint: chest pain - Related Data Home Medications Medication Instructions Recorded Confirmed FLUoxetine HCL [PROzac] 20 mg PO DAILY 06/06/18 08/21/18 Mirtazapine [Remeron] 30 mg PO HS 06/06/18 08/21/18 QUEtiapine FUMARATE [SEROquel] 300 mg PO HS 06/06/18 08/21/18 [place] Carbonate 600 mg PO HS 06/24/18 08/21/18 Gabapentin 800 mg PO TID 07/15/18 08/21/18 Naltrexone HCl [Revia] 50 mg PO DAILY 07/15/18 08/21/18 Terbinafine [LamISIL] 250 mg PO DAILY 07/15/18 08/21/18 Atorvastatin [Lipitor] 20 mg PO DAILY 08/02/18 08/21/18 Loratadine [Claritin] 10 mg PO DAILY 08/02/18 08/21/18 amLODIPine [Norvasc] 2.5 mg PO DAILY 08/02/18 08/21/18 Vivitrol 380mg Powder For 380 mg IM Q28D 08/09/18 08/21/18 Suspension Extended Release Allergies Allergy/AdvReac Type Severity Reaction Status Date / Time No Known Allergies Allergy Verified 08/21/18 18:54 Review of Systems ROS Statement: Those systems with pertinent positive or pertinent negative responses have been documented in the HPI. ROS Other: All systems not noted in ROS Statement are negative. EKG Findings - EKG Results: EKG: interpreted by WYATT, sinus rhythm (Sinus rhythm of 70. Interval 166 QRS duration 86 QT since QTC 433/464 left exodeviation no acute ST-T wave changes) Past Medical History Past Medical History: Chest Pain / Angina, Hypertension Additional Past Medical History / Comment(s): ETOH History of Any Multi-Drug Resistant Organisms: None Reported Past Surgical History: Orthopedic Surgery Additional Past Surgical History / Comment(s): Right knee surgery and salma placed in left femur, 3 surgeries on his eyes. Past Anesthesia/Blood Transfusion Reactions: No Reported Reaction Past Psychological History: Anxiety, Bipolar, Depression, Schizoaffective Disorder Smoking Status: Current every day smoker Past Alcohol Use History: Abuse, Daily, Heavy Past Drug Use History: None Reported - Past Family History Mother Additional Family Medical History / Comment(s): Mother at age 36 from motor vehicle accident. His father is also past but does not know the cause or his age. Patient has 3 brothers that are apparently without major medical problems. General Exam - General Exam Comments Initial Comments: This a well-developed well-nourished awake alert oriented 3 male Limitations: no limitations General appearance: alert, in no apparent distress Head exam: Present: atraumatic, normocephalic, normal inspection Eye exam: Present: normal appearance, PERRL, EOMI. Absent: scleral icterus, conjunctival injection, periorbital swelling ENT exam: Present: normal exam, mucous membranes moist Neck exam: Present: normal inspection. Absent: tenderness, meningismus, lymphadenopathy Respiratory exam: Present: normal lung sounds bilaterally, chest wall tenderness (Reproducible tenderness palpation of the costal sternal margin). Absent: respiratory distress, wheezes, rales, rhonchi, stridor Cardiovascular Exam: Present: regular rate, normal rhythm, normal heart sounds. Absent: systolic murmur, diastolic murmur, rubs, gallop, clicks GI/Abdominal exam: Present: soft, normal bowel sounds. Absent: distended, tenderness, guarding, rebound, rigid Extremities exam: Present: normal inspection, full ROM, normal capillary refill. Absent: tenderness, pedal edema, joint swelling, calf tenderness Back exam: Present: normal inspection Neurological exam: Present: alert, oriented X3, CN II-XII intact Psychiatric exam: Present: normal affect, normal mood Skin exam: Present: warm, dry, intact, normal color. Absent: rash Course Vital Signs 08/21/18 08/21/18 08/22/18 18:37 23:02 00:09 Temperature 98 F Pulse Rate 73 97 84 Respiratory 16 16 16 Rate Blood Pressure 148/91 115/74 O2 Sat by Pulse 99 98 98 Oximetry - Reevaluation(s) Reevaluation #1: 08/21/18 19:48 The patient is a smoker we did discuss smoking cessation and the necessity of this in light of risk factors for disease. Total encounter 3.1 minutes Chest Pain MDM - MDM I did review the imaging and results of acute findings at work is unremarkable except the elevated d-dimer which is stuffy. Positive. Patient was evaluated by psychiatric service and found not to be a risk to himself he will be discharged Disposition Clinical Impression: Atypical chest pain, Adjustment disorder Disposition: HOME SELF-CARE Condition: Good Instructions: Chest Pain (ED), Mood Disorders (ED) Additional Instructions: Follow-up as per the psychiatric department Is patient prescribed a controlled substance at d/c from ED?: No Referrals: Kermit Partida MD [Primary Care Provider] - 1-2 days
[2018-08-21 19:57] LABS: ALT 13 U/L (21-72); AST 38 U/L (17-59); Albumin 4.2 g/dL (3.5-5.0); Alkaline Phosphatase 97 U/L (38-126); Amphetamine Screen,Urine Not Detected (NotDetected); Anion Gap 10 mmol/L; Barbiturate Screen,Urine Not Detected (NotDetected); Benzodiazepines Screen,Urine Not Detected (NotDetected); Blood Urea Nitrogen 4 mg/dL (9-20); Calcium 9.4 mg/dL (8.4-10.2); Carbon Dioxide 28 mmol/L (22-30); Chloride 99 mmol/L (98-107); Cocaine Screen,Urine Not Detected (NotDetected); Glucose 89 mg/dL (74-99); Magnesium 2.2 mg/dL (1.6-2.3); Methadone Screen, Urine Not Detected (NotDetected); Opiate Screen,Urine Not Detected (NotDetected); Oxycodone Screen, Urine Not Detected (NotDetected); Phencyclidine Screen,Urine Not Detected (NotDetected); Potassium 4.9 mmol/L (3.5-5.1); Sodium 137 mmol/L (137-145); Total Bilirubin 0.7 mg/dL (0.2-1.3); Total Protein 7.8 g/dL (6.3-8.2); Tricyclic Antidepressant,Urine Not Detected (NotDetected); Urn Cannabinoid Scrn Not Detected (NotDetected)
--- NOTE | 2018-08-21 20:07 | XR ---
EXAMINATION TYPE: XR chest 2V DATE OF EXAM: 08/21/2018 COMPARISON: 07/14/2018 HISTORY: Chest pain TECHNIQUE: Frontal and lateral views of the chest are obtained. FINDINGS: Heart and mediastinum are normal. Lungs are clear. Diaphragm is normal. There is deformity of the right clavicle with old separation of the AC joint. IMPRESSION: No active cardiopulmonary disease. Normal heart. No change.
[2018-08-21 20:09] LABS: Creatine Kinase 83 U/L (55-170)
[2018-08-21 20:21] LABS: Creatine Kinase MB 0.6 ng/mL (0.0-2.4); Troponin I <0.012 ng/mL (0.000-0.034)
[2018-08-21 20:23] LABS: Prothrombin Time 9.8 sec (9.0-12.0)
[2018-08-21 20:25] LABS: D-Dimer 1.35 mg/L FEU (<0.60); Partial Thromboplastin Time 21.6 sec (22.0-30.0)
--- NOTE | 2018-08-21 21:25 | CT ---
EXAMINATION TYPE: CT angio chest DATE OF EXAM: 08/21/2018 9:10 PM COMPARISON: None HISTORY: chest pain CT DLP: 241.7 mGycm Automated exposure control for dose reduction was used. CONTRAST: CTA scan of the thorax is performed with IV Contrast, patient injected with 60 mL of Isovue 370, pulm onary embolism protocol. There are 3-D post processed images.. FINDINGS: The lungs are clear of consolidation. There is no evidence of a pulmonary mass. There is 4 mm faint n odular density in the lateral right upper lobe. There is normal contrast opacification of the pulmonary arteries. I see no filling defect. There is n o evidence of thoracic aortic aneurysm or dissection. There is no mediastinal adenopathy. There are n o hilar masses. The bony thorax is intact. There is some spurring in the thoracic spine. There is small hiatal hernia. The upper abdominal soft tissues are otherwise unremarkable. There is m ild atheromatous change in the aortic arch. IMPRESSION: NO EVIDENCE OF PULMONARY EMBOLISM.
[2018-08-22 00:13] VITALS: PULSE 84
[2018-08-22 01:35] VITALS: BP 125/79; RESP 17; TEMP 84
== END 2018-08-22 01:10 | disposition home or self-care (01) ==
LOC: EC 18:32
DX: F43.21 Adjustment disorder with depressed mood (principal); R07.89 Other chest pain; R79.1 Abnormal coagulation profile; R45.851 Suicidal ideations; I10 Essential (primary) hypertension; F31.9 Bipolar disorder, unspecified; F41.9 Anxiety disorder, unspecified; F17.200 Nicotine dependence, unspecified, uncomplicated; Z79.899 Other long term (current) drug therapy
CPT/HCPCS: 36415; 93005; 85379; 80053; 82550; 82553; 83735; 84484; 85025; 85610; 85730; 80306; 71046; 71275; 99285; Q9967

== ENCOUNTER 2018-08-24 20:23 | Emergency (ER) | payer OTHER ==
[2018-08-24 20:38] VITALS: TEMP 98
--- NOTE | 2018-08-24 21:09 | ED ---
Psych HPI - General Source: patient, EMS, RN notes reviewed Mode of arrival: EMS Limitations: no limitations <nÁgel Klein - Last Filed: 08/25/18 03:54> <Marlene Velázquez - Last Filed: 08/25/18 23:59> - General Chief Complaint: Psychiatric Symptoms Stated Complaint: ETOH Time Seen by Provider: 08/24/18 20:26 - History of Present Illness Initial Comments: 53-year-old male presents emergency department via EMS for alcohol and ice condition, suicidal ideation. Patient was found intoxicated by [place] [employer]. Patient states that his been drinking for most the day is a chronic alcoholic. Patient does state that he is suicidal denies underlying homicidal ideation denies any physical complaints denies any illicit drug use. (Ángel Klein) - Related Data Home Medications Medication Instructions Recorded Confirmed FLUoxetine HCL [PROzac] 20 mg PO DAILY 06/06/18 08/21/18 Mirtazapine [Remeron] 30 mg PO HS 06/06/18 08/21/18 QUEtiapine FUMARATE [SEROquel] 300 mg PO HS 06/06/18 08/21/18 [place] Carbonate 600 mg PO HS 06/24/18 08/21/18 Gabapentin 800 mg PO TID 07/15/18 08/21/18 Naltrexone HCl [Revia] 50 mg PO DAILY 07/15/18 08/21/18 Terbinafine [LamISIL] 250 mg PO DAILY 07/15/18 08/21/18 Atorvastatin [Lipitor] 20 mg PO DAILY 08/02/18 08/21/18 Loratadine [Claritin] 10 mg PO DAILY 08/02/18 08/21/18 amLODIPine [Norvasc] 2.5 mg PO DAILY 08/02/18 08/21/18 Vivitrol 380mg Powder For 380 mg IM Q28D 08/09/18 08/21/18 Suspension Extended Release Allergies Allergy/AdvReac Type Severity Reaction Status Date / Time No Known Allergies Allergy Verified 08/21/18 18:54 Review of Systems ROS Other: All systems not noted in ROS Statement are negative. <Ángel Klein - Last Filed: 08/25/18 03:54> ROS Other: All systems not noted in ROS Statement are negative. <Marlene Velázquez - Last Filed: 08/25/18 23:59> ROS Statement: Those systems with pertinent positive or pertinent negative responses have been documented in the HPI. Past Medical History Past Medical History: Chest Pain / Angina, Hypertension Additional Past Medical History / Comment(s): ETOH History of Any Multi-Drug Resistant Organisms: None Reported Past Surgical History: Orthopedic Surgery Additional Past Surgical History / Comment(s): Right knee surgery and salma placed in left femur, 3 surgeries on his eyes. Past Anesthesia/Blood Transfusion Reactions: No Reported Reaction Past Psychological History: Anxiety, Bipolar, Depression, Schizoaffective Disorder Smoking Status: Current every day smoker Past Alcohol Use History: Abuse, Daily, Heavy Past Drug Use History: None Reported - Past Family History Mother Additional Family Medical History / Comment(s): Mother at age 36 from motor vehicle accident. His father is also past but does not know the cause or his age. Patient has 3 brothers that are apparently without major medical problems. <Ángel Klein M - Last Filed: 08/25/18 03:54> General Exam Limitations: no limitations General appearance: alert, in no apparent distress, appears intoxicated Head exam: Present: atraumatic, normocephalic, normal inspection Eye exam: Present: normal appearance, PERRL, EOMI. Absent: scleral icterus, conjunctival injection, periorbital swelling ENT exam: Present: normal exam, mucous membranes moist Neck exam: Present: normal inspection, full ROM. Absent: tenderness, meningismus, lymphadenopathy Respiratory exam: Present: normal lung sounds bilaterally. Absent: respiratory distress, wheezes, rales, rhonchi, stridor Cardiovascular Exam: Present: regular rate, normal rhythm, normal heart sounds. Absent: systolic murmur, diastolic murmur, rubs, gallop, clicks GI/Abdominal exam: Present: soft, normal bowel sounds. Absent: distended, tenderness, guarding, rebound, rigid Neurological exam: Present: alert, oriented X3, CN II-XII intact Skin exam: Present: warm, dry, intact, normal color. Absent: rash <Ángel Klein M - Last Filed: 08/25/18 03:54> Vital Signs 08/24/18 08/25/18 20:29 06:10 Temperature 98.0 F Pulse Rate 94 110 H Respiratory 18 16 Rate Blood Pressure 135/87 113/76 O2 Sat by Pulse 98 100 Oximetry Medical Decision Making <Ángel Klein - Last Filed: 08/25/18 03:54> <Marlene Velázquez - Last Filed: 08/25/18 23:59> - Medical Decision Making 53-year-old male presented for alcohol intoxication, psychiatric evaluation. Patient was sober was evaluated by EPS case discussed with psychiatrist. Patient will be discharged to [facility] in the a.m. and return parameters were discussed. Stable and safe for discharge (Ángel Klein) I personally saw and examined the patient. I reviewed and agree with the mid- level provider findings including all diagnostic interpretations and treatment plans as written unless otherwise stated. I was present for [place]esley portions of any procedures performed. (Malrene Velázquez) - Lab Data Lab Results 08/24/18 Range/Units 20:20 Urine Opiates Screen Not Detected (NotDetected) Ur Oxycodone Screen Not Detected (NotDetected) Urine Methadone Screen Not Detected (NotDetected) Ur Propoxyphene Screen Not Detected (NotDetected) Ur Barbiturates Screen Not Detected (NotDetected) U Tricyclic Antidepress Not Detected (NotDetected) Ur Phencyclidine Scrn Not Detected (NotDetected) Ur Amphetamines Screen Not Detected (NotDetected) U Methamphetamines Scrn Not Detected (NotDetected) U Benzodiazepines Scrn Not Detected (NotDetected) Urine Cocaine Screen Not Detected (NotDetected) U Marijuana (THC) Screen Not Detected (NotDetected) Disposition Is patient prescribed a controlled substance at d/c from ED?: No Time of Disposition: 03:55 <Ángel Klein - Last Filed: 08/25/18 03:54> <Marlene Velázquez - Last Filed: 08/25/18 23:59> Clinical Impression: Alcohol abuse, Depression Disposition: HOME SELF-CARE Condition: Stable Instructions: Depression (ED) Additional Instructions: Please return to the Emergency Department if symptoms worsen or any other concerns. Referrals: Kermit Partida MD [Primary Care Provider] - 1-2 days
[2018-08-24 21:18] LABS: Amphetamine Screen,Urine Not Detected (NotDetected); Barbiturate Screen,Urine Not Detected (NotDetected); Benzodiazepines Screen,Urine Not Detected (NotDetected); Cocaine Screen,Urine Not Detected (NotDetected); Methadone Screen, Urine Not Detected (NotDetected); Opiate Screen,Urine Not Detected (NotDetected); Oxycodone Screen, Urine Not Detected (NotDetected); Phencyclidine Screen,Urine Not Detected (NotDetected); Tricyclic Antidepressant,Urine Not Detected (NotDetected); Urn Cannabinoid Scrn Not Detected (NotDetected)
[2018-08-25 06:12] VITALS: BP 113/76; PULSE 110; RESP 16
== END 2018-08-25 06:12 | disposition home or self-care (01) ==
LOC: EC 20:23
DX: F10.10 Alcohol abuse, uncomplicated (principal); F32.9 Major depressive disorder, single episode, unspecified; F41.9 Anxiety disorder, unspecified; F25.0 Schizoaffective disorder, bipolar type; I10 Essential (primary) hypertension; F17.200 Nicotine dependence, unspecified, uncomplicated; Z79.899 Other long term (current) drug therapy
CPT/HCPCS: 80306; 82075; 99285

== ENCOUNTER 2018-09-28 18:20 | Emergency (ER) | payer OTHER ==
[2018-09-28 18:43] VITALS: RESP 18
[2018-09-28] MEDS ORDERED: IPRATROPIUM-ALBUTEROL 3 ML NEB INHALATION STA (19:57)
--- NOTE | 2018-09-28 20:28 | XR ---
EXAMINATION TYPE: XR chest 2V DATE OF EXAM: 09/28/2018 COMPARISON: 08/21/2018 HISTORY: Chest pain TECHNIQUE: Frontal and lateral views of the chest are obtained. FINDINGS: Heart and mediastinum are normal. Lungs are clear. Diaphragm is normal. Bony thorax is nor mal. IMPRESSION: Normal chest. No change.
--- NOTE | 2018-09-28 20:32 | ED ---
Psych HPI - General Source: patient, RN notes reviewed, old records reviewed Mode of arrival: EMS <Heather Alexandre - Last Filed: 10/01/18 18:30> <Marlene Velázquez P - Last Filed: 10/04/18 03:56> - General Chief Complaint: Psychiatric Symptoms Stated Complaint: chest pain/ETOH Time Seen by Provider: 09/28/18 19:04 - History of Present Illness Initial Comments: 53-year-old male, well-known to the emergency department for alcohol abuse and suicidal thoughts presents emergency department again today for similar complaints. Patient is currently homeless. Patient reports that she also has a chronic cough and shortness of breath. Similar to his previous complaints. Patient states that he feels like he does not want to live anymore. He states that he would run in front of a car. Patient is well-known to the psych services and active. He is currently living in a care home. (Heather Alexandre) - Related Data Home Medications Medication Instructions Recorded Confirmed FLUoxetine HCL [PROzac] 20 mg PO DAILY 06/06/18 09/28/18 QUEtiapine FUMARATE [SEROquel] 300 mg PO HS 06/06/18 09/28/18 Gabapentin 800 mg PO TID 07/15/18 09/28/18 Naltrexone HCl [Revia] 50 mg PO DAILY 07/15/18 09/28/18 Terbinafine [LamISIL] 250 mg PO DAILY 07/15/18 09/28/18 Atorvastatin [Lipitor] 20 mg PO DAILY 08/02/18 09/28/18 Loratadine [Claritin] 10 mg PO DAILY 08/02/18 09/28/18 amLODIPine [Norvasc] 2.5 mg PO DAILY 08/02/18 09/28/18 Allergies Allergy/AdvReac Type Severity Reaction Status Date / Time No Known Allergies Allergy Verified 09/28/18 18:40 Review of Systems ROS Other: All systems not noted in ROS Statement are negative. <Heather Alexandre - Last Filed: 10/01/18 18:30> ROS Other: All systems not noted in ROS Statement are negative. <Marlene Velázquez P - Last Filed: 10/04/18 03:56> ROS Statement: Those systems with pertinent positive or pertinent negative responses have been documented in the HPI. Past Medical History Past Medical History: Chest Pain / Angina, Hypertension Additional Past Medical History / Comment(s): ETOH History of Any Multi-Drug Resistant Organisms: None Reported Past Surgical History: Orthopedic Surgery Additional Past Surgical History / Comment(s): Right knee surgery and salma placed in left femur, 3 surgeries on his eyes. Past Anesthesia/Blood Transfusion Reactions: No Reported Reaction Past Psychological History: Anxiety, Bipolar, Depression, Schizoaffective Disorder Smoking Status: Current every day smoker Past Alcohol Use History: Abuse, Daily, Heavy Past Drug Use History: None Reported - Past Family History Mother Additional Family Medical History / Comment(s): Mother at age 36 from motor vehicle accident. His father is also past but does not know the cause or his age. Patient has 3 brothers that are apparently without major medical problems. <Heather Alexandre - Last Filed: 10/01/18 18:30> General Exam Limitations: no limitations General appearance: alert, in no apparent distress Head exam: Present: atraumatic, normocephalic, normal inspection Eye exam: Present: normal appearance, PERRL, EOMI. Absent: scleral icterus, conjunctival injection, periorbital swelling ENT exam: Present: normal exam, mucous membranes moist Neck exam: Present: normal inspection. Absent: tenderness, meningismus, lymphadenopathy Respiratory exam: Present: wheezes (Slight wheezing bilaterally.). Absent: normal lung sounds bilaterally, respiratory distress, rales, rhonchi, stridor Cardiovascular Exam: Present: regular rate, normal rhythm, normal heart sounds. Absent: systolic murmur, diastolic murmur, rubs, gallop, clicks Extremities exam: Present: normal inspection, full ROM, normal capillary refill. Absent: tenderness, pedal edema, joint swelling, calf tenderness Back exam: Present: normal inspection Neurological exam: Present: alert, oriented X3, CN II-XII intact Psychiatric exam: Present: normal affect, normal mood <Heather Alexandre - Last Filed: 10/01/18 18:30> <Marlene Velázquez - Last Filed: 10/04/18 03:56> - General Exam Comments Initial Comments: 53-year-old male. Alert and oriented. Patient appears in no acute distress. ( Heather Alexandre) Vital Signs 09/28/18 09/28/18 09/28/18 18:40 20:54 23:00 Temperature 98.2 F 98.7 F Pulse Rate 89 89 98 Respiratory 18 18 Rate Blood Pressure 159/91 120/79 O2 Sat by Pulse 94 L 95 Oximetry Medical Decision Making - Radiology Data Radiology results: report reviewed <Heather Alexandre - Last Filed: 10/01/18 18:30> <Marlene Velázquez - Last Filed: 10/04/18 03:56> - Medical Decision Making 53-year-old male present to emergency department today with alcohol abuse. Patient states that he feels like ending his life. He states that he must walk in front of the car. Patient was clinically sober 2 hours after his emergency room stay. Also complains of slight shortness of breath. His EKG and chest x- ray were negative for any acute changes. Patient at this time has other complaints and is here for EPS. EPS study Patient states the Patient is stable for discharge home. Patient will be transferred back to the care home. (Heather Alexandre) I was available for consultation in the emergency department. The history and physical exam were done by the Midlevel Provider. Medical decision making was done by the Midlevel Provider. The Midlevel Provider did not contact me for this patient's care. I was not directly involved in this patient's care. (Marlene Velázquez) - Lab Data Lab Results 09/28/18 Range/Units 20:45 Urine Opiates Screen Not Detected (NotDetected) Ur Oxycodone Screen Not Detected (NotDetected) Urine Methadone Screen Not Detected (NotDetected) Ur Propoxyphene Screen Not Detected (NotDetected) Ur Barbiturates Screen Not Detected (NotDetected) U Tricyclic Antidepress Not Detected (NotDetected) Ur Phencyclidine Scrn Not Detected (NotDetected) Ur Amphetamines Screen Not Detected (NotDetected) U Methamphetamines Scrn Not Detected (NotDetected) U Benzodiazepines Scrn Not Detected (NotDetected) Urine Cocaine Screen Not Detected (NotDetected) U Marijuana (THC) Screen Detected H (NotDetected) 09/28/18 23:33 EKG shows a sinus rhythm with anterior fascicular block. Abnormal EKG. Genitourinary of 90 bpm. Was 164 ms. QRS duration is 108 ms. QT QTC 34/469 ms. (Heather Alexandre) - Radiology Data Normal chest x-ray. No changes. (Heather Alexandre) Disposition Is patient prescribed a controlled substance at d/c from ED?: No Time of Disposition: 22:35 <Heather Alexandre - Last Filed: 10/01/18 18:30> <Marlene Velázquez - Last Filed: 10/04/18 03:56> Clinical Impression: Alcohol intoxication, Depression Disposition: HOME SELF-CARE Condition: Good Instructions: Help Prevent Suicide (ED) Additional Instructions: Patient advised to follow-up with primary care physician. Return to emergency department if any alarming signs or symptoms occur. Referrals: Kermit Partida MD [Primary Care Provider] - 1-2 days
[2018-09-28 21:06] LABS: Amphetamine Screen,Urine Not Detected (NotDetected); Barbiturate Screen,Urine Not Detected (NotDetected); Benzodiazepines Screen,Urine Not Detected (NotDetected); Cocaine Screen,Urine Not Detected (NotDetected); Methadone Screen, Urine Not Detected (NotDetected); Opiate Screen,Urine Not Detected (NotDetected); Oxycodone Screen, Urine Not Detected (NotDetected); Phencyclidine Screen,Urine Not Detected (NotDetected); Tricyclic Antidepressant,Urine Not Detected (NotDetected); Urn Cannabinoid Scrn Detected (NotDetected)
[2018-09-28 23:07] VITALS: BP 120/79; PULSE 98; TEMP 98.7
== END 2018-09-28 23:07 | disposition home or self-care (01) ==
LOC: EC 18:20
DX: F10.129 Alcohol abuse with intoxication, unspecified (principal); F32.9 Major depressive disorder, single episode, unspecified; R45.851 Suicidal ideations; R06.02 Shortness of breath; I10 Essential (primary) hypertension; F31.9 Bipolar disorder, unspecified; F25.9 Schizoaffective disorder, unspecified; F17.200 Nicotine dependence, unspecified, uncomplicated; Z79.899 Other long term (current) drug therapy; Z59.0 Homelessness
CPT/HCPCS: 71046; 80306; 82075; 94640; 99285

== ENCOUNTER 2018-10-05 04:11 | Emergency (ER) | payer OTHER ==
[2018-10-05 04:27] VITALS: RESP 18
[2018-10-05 05:42] LABS: Amphetamine Screen,Urine Not Detected (NotDetected); Barbiturate Screen,Urine Not Detected (NotDetected); Benzodiazepines Screen,Urine Detected (NotDetected); Cocaine Screen,Urine Not Detected (NotDetected); Methadone Screen, Urine Not Detected (NotDetected); Opiate Screen,Urine Not Detected (NotDetected); Oxycodone Screen, Urine Not Detected (NotDetected); Phencyclidine Screen,Urine Not Detected (NotDetected); Tricyclic Antidepressant,Urine Detected (NotDetected); Urn Cannabinoid Scrn Detected (NotDetected)
--- NOTE | 2018-10-05 06:17 | ED ---
General Adult HPI - General Chief complaint: Chest Pain Stated complaint: Chest Pain, Suicidal Time Seen by Provider: 10/05/18 04:33 Source: EMS Mode of arrival: EMS Limitations: no limitations - History of Present Illness Initial comments: This patient is 53-year-old man with history of mood disorders who presents with worsening of his mood tonight over the past few hours. The patient states that over the past few hours been feeling more depressed. He did have some thoughts of harming himself. The patient does admit to drinking alcohol about 6 hours ago. -: hour(s) Associated Symptoms: denies other symptoms - Related Data Home Medications Medication Instructions Recorded Confirmed FLUoxetine HCL [PROzac] 20 mg PO DAILY 06/06/18 09/28/18 QUEtiapine FUMARATE [SEROquel] 300 mg PO HS 06/06/18 09/28/18 Gabapentin 800 mg PO TID 07/15/18 09/28/18 Naltrexone HCl [Revia] 50 mg PO DAILY 07/15/18 09/28/18 Terbinafine [LamISIL] 250 mg PO DAILY 07/15/18 09/28/18 Atorvastatin [Lipitor] 20 mg PO DAILY 08/02/18 09/28/18 Loratadine [Claritin] 10 mg PO DAILY 08/02/18 09/28/18 amLODIPine [Norvasc] 2.5 mg PO DAILY 08/02/18 09/28/18 Previous Rx's Medication Instructions Recorded Mirtazapine [Remeron] 15 mg PO HS #7 tab 10/05/18 QUEtiapine FUMARATE [SEROquel] 300 mg PO HS #7 tab 10/05/18 Allergies Allergy/AdvReac Type Severity Reaction Status Date / Time No Known Allergies Allergy Verified 09/28/18 18:40 Review of Systems ROS Statement: Those systems with pertinent positive or pertinent negative responses have been documented in the HPI. ROS Other: All systems not noted in ROS Statement are negative. Constitutional: Denies: fever, chills Respiratory: Denies: cough, dyspnea Cardiovascular: Denies: chest pain, palpitations, syncope Gastrointestinal: Denies: abdominal pain, vomiting, diarrhea Musculoskeletal: Denies: back pain Psychiatric: Reports: depression, suicidal thoughts. Denies: auditory hallucinations, visual hallucinations, homicidal thoughts Past Medical History Past Medical History: Chest Pain / Angina, Hypertension Additional Past Medical History / Comment(s): ETOH History of Any Multi-Drug Resistant Organisms: None Reported Past Surgical History: Orthopedic Surgery Additional Past Surgical History / Comment(s): Right knee surgery and salma placed in left femur, 3 surgeries on his eyes. Past Anesthesia/Blood Transfusion Reactions: No Reported Reaction Past Psychological History: Anxiety, Bipolar, Depression, Schizoaffective Disorder Smoking Status: Current every day smoker Past Alcohol Use History: Abuse, Daily, Heavy Past Drug Use History: None Reported - Past Family History Mother Additional Family Medical History / Comment(s): Mother at age 36 from motor vehicle accident. His father is also past but does not know the cause or his age. Patient has 3 brothers that are apparently without major medical problems. General Exam Limitations: no limitations General appearance: alert, in no apparent distress Head exam: Present: atraumatic, normocephalic Eye exam: Present: normal appearance. Absent: scleral icterus, conjunctival injection ENT exam: Present: normal oropharynx Respiratory exam: Present: normal lung sounds bilaterally. Absent: respiratory distress, wheezes, rales, rhonchi, stridor Cardiovascular Exam: Present: regular rate, normal rhythm, normal heart sounds. Absent: systolic murmur, diastolic murmur, rubs, gallop GI/Abdominal exam: Present: soft. Absent: tenderness Back exam: Present: normal inspection. Absent: CVA tenderness (R), CVA tenderness (L) Psychiatric exam: Present: normal affect, depressed, suicidal ideation. Absent : agitated, anxious, flat affect, homicidal ideation Skin exam: Present: warm, dry, intact, normal color. Absent: rash Course Vital Signs 10/05/18 10/05/18 10/05/18 04:18 04:35 04:44 Temperature 98.7 F 98.5 F Pulse Rate 96 Pulse Rate [ 80 Bilateral Dorsalis Pedis] Respiratory 18 Rate Blood Pressure 150/87 O2 Sat by Pulse 98 Oximetry EKG Findings - EKG Results: EKG: interpreted by ERMD, sinus rhythm, normal QRS, normal ST/T - Blocks, [place], Hypertrophy, ST Abn: QRS axis and voltage: left axis deviation (-30 to -90) Repolarization changes or abnormalities: Q-T interval prolongation Medical Decision Making - Medical Decision Making The patient is seen by behavioral health and following there interview with him , I did reevaluate the patient. At this point he states that he does feel better after talking to someone. He does contract for safety. He states that he will return should anything worsen or if his symptoms recur. - Lab Data Lab Results 10/05/18 Range/Units 04:58 Urine Opiates Screen Not Detected (NotDetected) Ur Oxycodone Screen Not Detected (NotDetected) Urine Methadone Screen Not Detected (NotDetected) Ur Propoxyphene Screen Not Detected (NotDetected) Ur Barbiturates Screen Not Detected (NotDetected) U Tricyclic Antidepress Detected H (NotDetected) Ur Phencyclidine Scrn Not Detected (NotDetected) Ur Amphetamines Screen Not Detected (NotDetected) U Methamphetamines Scrn Not Detected (NotDetected) U Benzodiazepines Scrn Detected H (NotDetected) Urine Cocaine Screen Not Detected (NotDetected) U Marijuana (THC) Screen Detected H (NotDetected) Disposition Clinical Impression: Alcohol intoxication, Depression Disposition: HOME SELF-CARE Condition: Good Instructions: Mood Disorders (ED), Alcohol Intoxication (ED) Prescriptions: Mirtazapine [Remeron] 15 mg PO HS #7 tab QUEtiapine FUMARATE [SEROquel] 300 mg PO HS #7 tab Is patient prescribed a controlled substance at d/c from ED?: No Referrals: Kermit Partida MD [Primary Care Provider] - 1-2 days
[2018-10-05 07:16] VITALS: BP 132/85; PULSE 83; TEMP 98.6
== END 2018-10-05 07:24 | disposition home or self-care (01) ==
LOC: EC 04:11
DX: F10.129 Alcohol abuse with intoxication, unspecified (principal); F31.9 Bipolar disorder, unspecified; R45.851 Suicidal ideations; I10 Essential (primary) hypertension; F41.9 Anxiety disorder, unspecified; F25.9 Schizoaffective disorder, unspecified; F17.200 Nicotine dependence, unspecified, uncomplicated; Z79.899 Other long term (current) drug therapy
CPT/HCPCS: 80306; 93005; 99285

== ENCOUNTER 2019-01-06 23:02 | Emergency (ER) | payer OTHER ==
[2019-01-06 23:20] VITALS: TEMP 98.5
--- NOTE | 2019-01-07 00:08 | ED ---
General Adult HPI - General Chief complaint: Psychiatric Symptoms Stated complaint: Suicidal, ETOH Time Seen by Provider: 01/06/19 23:24 Source: patient Mode of arrival: ambulatory Limitations: no limitations - History of Present Illness Initial comments: This patient is a 53-year-old man with history of depression, who presents because she has been feeling suicidal tonight. Patient states that he is out of his usual medications which include Seroquel and Remeron. He states that as result of this he has not slept in going on 3 days. He states that this is making him feel like he is suicidal. Patient believes however that if he was able to sleep that he would be feeling much better. -: hour(s) Consistency: constant Improves with: none Worsens with: none Associated Symptoms: denies other symptoms Treatments Prior to Arrival: none - Related Data Home Medications Medication Instructions Recorded Confirmed FLUoxetine HCL [PROzac] 20 mg PO DAILY 06/06/18 09/28/18 QUEtiapine FUMARATE [SEROquel] 300 mg PO HS 06/06/18 09/28/18 Gabapentin 800 mg PO TID 07/15/18 09/28/18 Naltrexone HCl [Revia] 50 mg PO DAILY 07/15/18 09/28/18 Terbinafine [LamISIL] 250 mg PO DAILY 07/15/18 09/28/18 Atorvastatin [Lipitor] 20 mg PO DAILY 08/02/18 09/28/18 Loratadine [Claritin] 10 mg PO DAILY 08/02/18 09/28/18 amLODIPine [Norvasc] 2.5 mg PO DAILY 08/02/18 09/28/18 Previous Rx's Medication Instructions Recorded Mirtazapine [Remeron] 15 mg PO HS #7 tab 10/05/18 QUEtiapine FUMARATE [SEROquel] 300 mg PO HS #7 tab 10/05/18 Allergies Allergy/AdvReac Type Severity Reaction Status Date / Time No Known Allergies Allergy Verified 09/28/18 18:40 Review of Systems ROS Statement: Those systems with pertinent positive or pertinent negative responses have been documented in the HPI. ROS Other: All systems not noted in ROS Statement are negative. Constitutional: Denies: fever, chills Respiratory: Denies: cough, dyspnea Cardiovascular: Denies: chest pain Gastrointestinal: Denies: abdominal pain, nausea, vomiting Genitourinary: Denies: dysuria Musculoskeletal: Denies: back pain Skin: Denies: rash Neurological: Denies: headache, weakness, numbness Psychiatric: Reports: depression, suicidal thoughts. Denies: anxiety, auditory hallucinations, visual hallucinations, homicidal thoughts Past Medical History Past Medical History: Chest Pain / Angina, Hypertension Additional Past Medical History / Comment(s): ETOH History of Any Multi-Drug Resistant Organisms: None Reported Past Surgical History: Orthopedic Surgery Additional Past Surgical History / Comment(s): Right knee surgery and salma placed in left femur, 3 surgeries on his eyes. Past Anesthesia/Blood Transfusion Reactions: No Reported Reaction Past Psychological History: Anxiety, Bipolar, Depression, Schizoaffective Disorder Smoking Status: Current every day smoker Past Alcohol Use History: Abuse, Daily, Heavy Past Drug Use History: None Reported - Past Family History Mother Additional Family Medical History / Comment(s): Mother at age 36 from motor vehicle accident. His father is also past but does not know the cause or his age. Patient has 3 brothers that are apparently without major medical problems. General Exam Limitations: no limitations General appearance: alert, in no apparent distress Head exam: Present: atraumatic, normocephalic Eye exam: Present: normal appearance. Absent: scleral icterus, conjunctival injection ENT exam: Present: mucous membranes dry Respiratory exam: Present: normal lung sounds bilaterally. Absent: respiratory distress, wheezes, rales, rhonchi, stridor Cardiovascular Exam: Present: regular rate, normal rhythm, normal heart sounds. Absent: systolic murmur, diastolic murmur, rubs, gallop GI/Abdominal exam: Present: soft. Absent: distended, tenderness, guarding, rebound, mass Extremities exam: Present: normal inspection, normal capillary refill. Absent: pedal edema, calf tenderness Back exam: Present: normal inspection. Absent: CVA tenderness (R), CVA tenderness (L) Neurological exam: Present: alert Skin exam: Present: warm, dry, intact, normal color. Absent: rash Course Vital Signs 01/06/19 23:16 Temperature 98.5 F Pulse Rate 92 Respiratory 18 Rate Blood Pressure 125/91 O2 Sat by Pulse 97 Oximetry Disposition Clinical Impression: Alcohol abuse Disposition: HOME SELF-CARE Condition: Good Instructions (If sedation given, give patient instructions): Mood Disorders (ED) Is patient prescribed a controlled substance at d/c from ED?: No Referrals: Kermit Partida MD [Primary Care Provider] - 1-2 days
[2019-01-07] MEDS ORDERED: QUEtiapine 100 MG TAB PO STA (00:30)
[2019-01-07] MEDS ORDERED: MIRTAZAPINE 15 MG TAB PO STA (00:30)
[2019-01-07 06:45] VITALS: BP 107/73; PULSE 81; RESP 16
== END 2019-01-07 06:53 | disposition home or self-care (01) ==
LOC: EC 23:02
DX: F10.10 Alcohol abuse, uncomplicated (principal); R45.851 Suicidal ideations; I10 Essential (primary) hypertension; F31.9 Bipolar disorder, unspecified; F25.9 Schizoaffective disorder, unspecified; F41.9 Anxiety disorder, unspecified; F17.200 Nicotine dependence, unspecified, uncomplicated; Z79.899 Other long term (current) drug therapy
CPT/HCPCS: 82075; 99285

== ENCOUNTER 2019-01-22 18:44 | Emergency (ER) | payer OTHER ==
[2019-01-22 18:59] VITALS: RESP 16
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
[2019-01-22] MEDS ORDERED: NICOTINE 14MG/24HR PATCH TRANSDERM STA (21:01)
[2019-01-22] MEDS ORDERED: MIRTAZAPINE 15 MG TAB PO STA (21:05)
[2019-01-22] MEDS ORDERED: LITHIUM CARBONATE 300 MG CAP PO STA (21:05)
[2019-01-22] MEDS ORDERED: QUEtiapine 100 MG TAB PO STA (21:06)
[2019-01-22 23:56] LABS: Cocaine Screen,Urine Not Detected (NotDetected); Opiate Screen,Urine Not Detected (NotDetected); Phencyclidine Screen,Urine Not Detected (NotDetected); Urn Cannabinoid Scrn Detected (NotDetected)
[2019-01-22 23:57] LABS: Amphetamine Screen,Urine Not Detected (NotDetected); Barbiturate Screen,Urine Not Detected (NotDetected); Benzodiazepines Screen,Urine Not Detected (NotDetected); Methadone Screen, Urine Not Detected (NotDetected); Oxycodone Screen, Urine Not Detected (NotDetected); Tricyclic Antidepressant,Urine Detected (NotDetected)
[2019-01-23 02:18] VITALS: BP 112/71; PULSE 115; TEMP 99.1
== END 2019-01-23 03:46 | disposition home or self-care (01) ==
LOC: EC 18:44
DX: F25.0 Schizoaffective disorder, bipolar type (principal); F10.129 Alcohol abuse with intoxication, unspecified; F17.200 Nicotine dependence, unspecified, uncomplicated; F41.9 Anxiety disorder, unspecified; F25.1 Schizoaffective disorder, depressive type; I10 Essential (primary) hypertension; Z79.899 Other long term (current) drug therapy
CPT/HCPCS: 80306; 99285; S4990

== ENCOUNTER 2019-01-25 15:25 | Emergency (ER) | payer OTHER ==
[2019-01-25 15:36] VITALS: BP 130/87; PULSE 91; RESP 18; TEMP 98.7
--- NOTE | 2019-01-25 16:24 | ED ---
Psych HPI - General Chief Complaint: Psychiatric Symptoms Stated Complaint: Mental Health Time Seen by Provider: 01/25/19 15:53 Source: family Mode of arrival: ambulatory - History of Present Illness Initial Comments: Patient is a 53-year-old male with a history of antisocial personality the presents for suicidal ideation. He states that for the last couple days, he has been having thoughts of jumping off a bridge or onto incoming traffic to kill himself. He denies any physical complaints as well as homicidal ideation. - Related Data Home Medications Medication Instructions Recorded Confirmed Atorvastatin [Lipitor] 20 mg PO DAILY 08/02/18 01/25/19 Loratadine [Claritin] 10 mg PO DAILY 08/02/18 01/25/19 amLODIPine [Norvasc] 2.5 mg PO DAILY 08/02/18 01/25/19 FLUoxetine HCL [PROzac] 40 mg PO DAILY 01/22/19 01/25/19 [place] Carbonate 600 mg PO HS 01/22/19 01/25/19 Mirtazapine 30 mg PO HS 01/25/19 01/25/19 Previous Rx's Medication Instructions Recorded QUEtiapine FUMARATE [SEROquel] 300 mg PO HS #7 tab 10/05/18 Allergies Allergy/AdvReac Type Severity Reaction Status Date / Time No Known Allergies Allergy Verified 01/25/19 17:29 Review of Systems ROS Statement: Those systems with pertinent positive or pertinent negative responses have been documented in the HPI. Constitutional: Negative for chills, fatigue and fever. HENT: Negative for congestion. Respiratory: Negative for chest tightness, shortness of breath and wheezing. Negative for cough Cardiovascular: Negative for chest pain and palpitations. Gastrointestinal: Negative for abdominal pain. Negative for abdominal distention, diarrhea, nausea and vomiting. Genitourinary: Negative for dysuria. Musculoskeletal: Negative for back pain, neck pain and neck stiffness. Skin: Negative for color change. Neurological: Negative for dizziness, speech difficulty, weakness and light- headedness. Psychiatric/Behavioral: Negative for agitation and confusion. Negative for anxiety. Positive for suicidal ideation. Negative for homicidal ideation ROS Other: All systems not noted in ROS Statement are negative. Past Medical History Past Medical History: Chest Pain / Angina, Hypertension Additional Past Medical History / Comment(s): ETOH History of Any Multi-Drug Resistant Organisms: None Reported Past Surgical History: Orthopedic Surgery Additional Past Surgical History / Comment(s): Right knee surgery and salma placed in left femur, 3 surgeries on his eyes. Past Anesthesia/Blood Transfusion Reactions: No Reported Reaction Past Psychological History: Anxiety, Bipolar, Depression, Schizoaffective Disorder Smoking Status: Current every day smoker Past Alcohol Use History: Abuse, Daily, Heavy Past Drug Use History: None Reported - Past Family History Mother Additional Family Medical History / Comment(s): Mother at age 36 from motor vehicle accident. His father is also past but does not know the cause or his age. Patient has 3 brothers that are apparently without major medical problems. General Exam - General Exam Comments Initial Comments: Constitutional: Pt appears well-developed and well-nourished. No distress. Head: Normocephalic and atraumatic. Eyes: EOM are normal. Neck: Normal range of motion. Neck supple. Cardiovascular: Normal rate, regular rhythm, S1 normal, S2 normal and normal heart sounds. Exam reveals no gallop and no friction rub. No murmur heard. Pulmonary/Chest: Effort normal and breath sounds normal. No tachypnea and no bradypnea. No respiratory distress. No wheezes or rales noted. Abdominal: Soft. Bowel sounds are normal. Pt exhibits no shifting dullness, no distension, no pulsatile liver, no fluid wave, no abdominal bruit and no ascites. There is no rigidity, no rebound, no guarding, no tenderness at McBurney's point and negative Thomason's sign. There is no tenderness. Musculoskeletal: Normal range of motion. Neurological: Pt is alert and oriented to person, place, and time. No cranial nerve deficit. Skin: Skin is warm and dry. No rash noted. Pt is not diaphoretic. No erythema. No pallor. Psychiatric: Pt has a normal mood and affect. Pt behavior is normal. Positive for suicidal ideation with a plan. Negative for homicidal ideation Limitations: no limitations Course Vital Signs 01/25/19 15:34 Temperature 98.7 F Pulse Rate 91 Respiratory 18 Rate Blood Pressure 130/87 O2 Sat by Pulse 100 Oximetry Medical Decision Making - Medical Decision Making Patient was evaluated multiple times by psychiatric nurse as well as the case been discussed with the psychiatrist. rejected his earlier statements and stated that he only came in because he does not like the place that he lives at. Because the patient rejected the statements and because he was cleared by psychiatry, it is thought that it would be appropriate to discharge the patient back to his living facility. His time of disposition, the patient showed no evidence of suicidal ideation. - Lab Data Lab Results 01/25/19 Range/Units Unknown Urine Opiates Screen Not Detected (NotDetected) Ur Oxycodone Screen Not Detected (NotDetected) Urine Methadone Screen Not Detected (NotDetected) Ur Propoxyphene Screen Not Detected (NotDetected) Ur Barbiturates Screen Not Detected (NotDetected) U Tricyclic Antidepress Detected H (NotDetected) Ur Phencyclidine Scrn Not Detected (NotDetected) Ur Amphetamines Screen Not Detected (NotDetected) U Methamphetamines Scrn Not Detected (NotDetected) U Benzodiazepines Scrn Not Detected (NotDetected) Urine Cocaine Screen Not Detected (NotDetected) U Marijuana (THC) Screen Not Detected (NotDetected) Disposition Clinical Impression: Evaluation by psychiatric service required Disposition: HOME SELF-CARE Condition: Good Is patient prescribed a controlled substance at d/c from ED?: No Referrals: Kermit Partida MD [Primary Care Provider] - 1-2 days Time of Disposition: 20:57
[2019-01-25 17:58] LABS: Amphetamine Screen,Urine Not Detected (NotDetected); Barbiturate Screen,Urine Not Detected (NotDetected); Benzodiazepines Screen,Urine Not Detected (NotDetected); Cocaine Screen,Urine Not Detected (NotDetected); Methadone Screen, Urine Not Detected (NotDetected); Opiate Screen,Urine Not Detected (NotDetected); Oxycodone Screen, Urine Not Detected (NotDetected); Phencyclidine Screen,Urine Not Detected (NotDetected); Tricyclic Antidepressant,Urine Detected (NotDetected); Urn Cannabinoid Scrn Not Detected (NotDetected)
== END 2019-01-25 21:06 | disposition home or self-care (01) ==
LOC: EC 15:25
DX: Z00.8 Encounter for other general examination (principal); I10 Essential (primary) hypertension; F41.9 Anxiety disorder, unspecified; F31.9 Bipolar disorder, unspecified; F25.9 Schizoaffective disorder, unspecified; F17.200 Nicotine dependence, unspecified, uncomplicated; Z79.899 Other long term (current) drug therapy
CPT/HCPCS: 80306; 82075; 99285

== ENCOUNTER 2019-01-26 17:44 | Emergency (ER) | payer OTHER ==
[2019-01-26 17:51] VITALS: RESP 18
[2019-01-26 19:08] LABS: Amphetamine Screen,Urine Not Detected (NotDetected); Benzodiazepines Screen,Urine Not Detected (NotDetected); Cocaine Screen,Urine Not Detected (NotDetected); Methadone Screen, Urine Not Detected (NotDetected); Opiate Screen,Urine Not Detected (NotDetected); Phencyclidine Screen,Urine Not Detected (NotDetected); Urn Cannabinoid Scrn Not Detected (NotDetected)
[2019-01-26 19:09] LABS: Barbiturate Screen,Urine Not Detected (NotDetected); Oxycodone Screen, Urine Not Detected (NotDetected); Tricyclic Antidepressant,Urine Detected (NotDetected)
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
[2019-01-26 21:55] LABS: Basophils # (A) 0.1 k/uL (0-0.2); Basophils % (A) 0 %; Eosinophils # (A) 0.4 k/uL (0-0.7); Eosinophils % (A) 3 %; HCT 38.5 % (39.0-53.0); HGB 12.6 gm/dL (13.0-17.5); Lymphocytes # (A) 2.9 k/uL (1.0-4.8); Lymphocytes % (A) 21 %; MCH 29.7 pg (25.0-35.0); MCHC 32.8 g/dL (31.0-37.0); MCV 90.6 fL (80.0-100.0); Mean Platelet Volume 6.6; Monocytes # (A) 0.7 k/uL (0-1.0); Monocytes % (A) 5 %; Neutrophils # (A) 9.6 k/uL (1.3-7.7); Neutrophils % (A) 69 %; Platelet Count 373 k/uL (150-450); RBC 4.25 m/uL (4.30-5.90); RDW 14.6 % (11.5-15.5); WBC 13.8 k/uL (3.8-10.6)
[2019-01-26 22:02] LABS: Appearance,Urine Clear (Clear); Bilirubin,Urine Negative (Negative); Blood,Urine Negative (Negative); Color,Urine Light Yellow; Glucose,Urine (UA) Negative (Negative); Ketones,Urine Negative (Negative); Leukocyte Esterase,Urine Trace (Negative); Mucus,Urine Rare /hpf; Nitrite,Urine Negative (Negative); Protein,Urine Negative (Negative); RBC,Urine 1 /hpf (0-5); Specific Gravity,Urine 1.005 (1.001-1.035); Urobilinogen,Urine <2.0 mg/dL (<2.0); WBC,Urine 3 /hpf (0-5)
[2019-01-26 22:06] LABS: ALT 15 U/L (21-72); AST 18 U/L (17-59); Albumin 3.7 g/dL (3.5-5.0); Alkaline Phosphatase 94 U/L (38-126); Anion Gap 6 mmol/L; Blood Urea Nitrogen 10 mg/dL (9-20); Calcium 9.1 mg/dL (8.4-10.2); Carbon Dioxide 27 mmol/L (22-30); Chloride 104 mmol/L (98-107); Glucose 84 mg/dL (74-99); Lithium 0.2 mmol/L; Potassium 4.2 mmol/L (3.5-5.1); Sodium 137 mmol/L (137-145); Total Bilirubin 0.3 mg/dL (0.2-1.3); Total Protein 6.4 g/dL (6.3-8.2)
[2019-01-26] MEDS ORDERED: MIRTAZAPINE 15 MG TAB PO STA (22:07)
[2019-01-26] MEDS ORDERED: QUEtiapine 100 MG TAB PO STA (22:07)
[2019-01-27 03:11] VITALS: TEMP 98
[2019-01-27 05:36] VITALS: BP 144/74; PULSE 79
== END 2019-01-27 05:36 ==
LOC: EC 17:44
DX: F32.9 Major depressive disorder, single episode, unspecified (principal); R45.851 Suicidal ideations; R00.0 Tachycardia, unspecified; I10 Essential (primary) hypertension; F41.9 Anxiety disorder, unspecified; F25.9 Schizoaffective disorder, unspecified; F17.200 Nicotine dependence, unspecified, uncomplicated; Z79.899 Other long term (current) drug therapy
CPT/HCPCS: 36415; 80053; 80178; 80306; 81001; 84443; 85025; 99285

== ENCOUNTER 2019-02-22 01:39 | Emergency (ER) | payer OTHER ==
[2019-02-22 02:17] VITALS: BP 135/84; PULSE 75; RESP 19; TEMP 97.7
[2019-02-22 03:43] LABS: Basophils # (A) 0.1 k/uL (0-0.2); Basophils % (A) 0 %; Eosinophils # (A) 0.1 k/uL (0-0.7); Eosinophils % (A) 1 %; HCT 44.8 % (39.0-53.0); HGB 13.9 gm/dL (13.0-17.5); Lymphocytes # (A) 1.6 k/uL (1.0-4.8); Lymphocytes % (A) 8 %; MCH 28.9 pg (25.0-35.0); MCHC 31.2 g/dL (31.0-37.0); MCV 92.8 fL (80.0-100.0); Mean Platelet Volume 8.3; Monocytes # (A) 0.9 k/uL (0-1.0); Monocytes % (A) 4 %; Neutrophils # (A) 17.5 k/uL (1.3-7.7); Neutrophils % (A) 86 %; Platelet Count 292 k/uL (150-450); RBC 4.82 m/uL (4.30-5.90); RDW 14.8 % (11.5-15.5); WBC 20.4 k/uL (3.8-10.6)
[2019-02-22 03:49] LABS: Amphetamine Screen,Urine Not Detected (NotDetected); Barbiturate Screen,Urine Detected (NotDetected); Benzodiazepines Screen,Urine Not Detected (NotDetected); Cocaine Screen,Urine Not Detected (NotDetected); Methadone Screen, Urine Not Detected (NotDetected); Opiate Screen,Urine Not Detected (NotDetected); Oxycodone Screen, Urine Not Detected (NotDetected); Phencyclidine Screen,Urine Not Detected (NotDetected); Tricyclic Antidepressant,Urine Detected (NotDetected); Urn Cannabinoid Scrn Not Detected (NotDetected)
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
[2019-02-22 05:24] LABS: ALT 22 U/L (21-72); AST 34 U/L (17-59); Albumin 4.4 g/dL (3.5-5.0); Alkaline Phosphatase 95 U/L (38-126); Anion Gap 12 mmol/L; Blood Urea Nitrogen 15 mg/dL (9-20); Calcium 9.3 mg/dL (8.4-10.2); Carbon Dioxide 23 mmol/L (22-30); Chloride 105 mmol/L (98-107); Glucose 77 mg/dL (74-99); Potassium 4.1 mmol/L (3.5-5.1); Sodium 140 mmol/L (137-145); Total Bilirubin 0.3 mg/dL (0.2-1.3); Total Protein 6.9 g/dL (6.3-8.2)
== END 2019-02-22 07:53 | disposition home or self-care (01) ==
LOC: EC 01:39
DX: F10.10 Alcohol abuse, uncomplicated (principal); D72.829 Elevated white blood cell count, unspecified; R45.851 Suicidal ideations; I10 Essential (primary) hypertension; F25.9 Schizoaffective disorder, unspecified; F31.9 Bipolar disorder, unspecified; F41.9 Anxiety disorder, unspecified; F17.200 Nicotine dependence, unspecified, uncomplicated; Z79.899 Other long term (current) drug therapy
CPT/HCPCS: 36415; 80053; 80306; 82075; 85025; 99284

== ENCOUNTER 2019-02-25 03:09 | Emergency (ER) | payer OTHER ==
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
[2019-02-25 07:02] VITALS: BP 108/78; PULSE 93; RESP 19; TEMP 98.3
== END 2019-02-25 07:02 | disposition home or self-care (01) ==
LOC: EC 03:09
DX: F10.10 Alcohol abuse, uncomplicated (principal); R45.851 Suicidal ideations; I10 Essential (primary) hypertension; F41.9 Anxiety disorder, unspecified; F25.0 Schizoaffective disorder, bipolar type; F17.200 Nicotine dependence, unspecified, uncomplicated
CPT/HCPCS: 82075; 99285

== ENCOUNTER 2019-02-25 21:53 | Emergency (ER) | payer OTHER ==
[2019-02-25] MEDS ORDERED: SODIUM CHLORIDE 0.9% 1,000 ML IV ONE (22:02)
--- NOTE | 2019-02-25 22:05 | ED ---
General Adult HPI - General Stated complaint: ETOH Time Seen by Provider: 02/25/19 21:54 - History of Present Illness Initial comments: This is a 53-year-old alcoholic male very well-known to the emergency department for his frequent visits. I have seen and evaluated and 3 times this week. Patient reports that today he drank 6 talk and severe and felt very weak and unwell. He did follow up with [facility] this morning he reports he is no longer feeling suicidal he just felt weak and tired. Of note the patient is homeless and upon arrival asks for multiple warm blankets and food and immediately fell asleep. - Related Data Home Medications Medication Instructions Recorded Confirmed Atorvastatin [Lipitor] 20 mg PO DAILY 08/02/18 02/25/19 Loratadine [Claritin] 10 mg PO DAILY 08/02/18 02/25/19 amLODIPine [Norvasc] 2.5 mg PO DAILY 08/02/18 02/25/19 FLUoxetine HCL [PROzac] 40 mg PO DAILY 01/22/19 02/25/19 [place] Carbonate 600 mg PO HS 01/22/19 02/25/19 Mirtazapine 30 mg PO HS 01/25/19 02/25/19 Vivitrol 380mg Er 380 mg IM Q28D 02/25/19 02/25/19 Previous Rx's Medication Instructions Recorded QUEtiapine FUMARATE [SEROquel] 300 mg PO HS #7 tab 10/05/18 Allergies Allergy/AdvReac Type Severity Reaction Status Date / Time No Known Allergies Allergy Verified 02/25/19 22:14 Review of Systems ROS Statement: Those systems with pertinent positive or pertinent negative responses have been documented in the HPI. ROS Other: All systems not noted in ROS Statement are negative. Past Medical History Past Medical History: Chest Pain / Angina, Hypertension Additional Past Medical History / Comment(s): ETOH History of Any Multi-Drug Resistant Organisms: None Reported Past Surgical History: Orthopedic Surgery Additional Past Surgical History / Comment(s): Right knee surgery and salma placed in left femur, 3 surgeries on his eyes. Past Anesthesia/Blood Transfusion Reactions: No Reported Reaction Past Psychological History: Anxiety, Bipolar, Depression, Schizoaffective Disorder Smoking Status: Current every day smoker Past Alcohol Use History: Abuse, Daily, Heavy Past Drug Use History: None Reported - Past Family History Mother Additional Family Medical History / Comment(s): Mother at age 36 from motor vehicle accident. His father is also past but does not know the cause or his age. Patient has 3 brothers that are apparently without major medical problems. General Exam - General Exam Comments Initial Comments: Physical Exam GENERAL: Chronically ill-appearing, unkempt, poor personal hygiene HENT: Normocephalic, Atraumatic. EYES: PERRL, EOMI PULMONARY: Unlabored respirations CARDIOVASCULAR: RRR ABDOMEN: Soft and nontender with normal bowel sounds. SKIN: Skin is clear with no lesions or rashes and otherwise unremarkable. : Deferred NEUROLOGIC: Patient is alert and oriented x3 Moving all extremities spontaneously MUSCULOSKELETAL: Normal extremities with adequate strength and full range of motion. No lower extremity swelling or edema. No calf tenderness. PSYCHIATRIC: Normal psychiatric evaluation Course Vital Signs 02/25/19 22:20 Temperature 97.5 F L Pulse Rate 92 Respiratory 18 Rate Blood Pressure 140/91 O2 Sat by Pulse 96 Oximetry Medical Decision Making - Medical Decision Making Patient was seen and evaluated, history is obtained from the patient Patient reports feeling weak and tired him a no focal neurologic deficits no focal weakness just generalized malaise the patient is intoxicated with a breath alcohol level of 0.174 this is consistent with the patient's history of drinking 6 call cans of beer Basic labs are ordered IV fluids ordered patient was given food and drink warm blankets and was noted to be sleeping comfortably. Labs with no significant abnormalities Patient slept comfortably throughout the night in the emergency department was discharged home - Lab Data Result diagrams: 02/25/19 23:40 02/25/19 23:40 Lab Results 02/25/19 02/25/19 Range/Units 23:40 23:40 WBC 7.6 (3.8-10.6) k/uL RBC 4.44 (4.30-5.90) m/uL Hgb 12.9 L (13.0-17.5) gm/dL Hct 41.6 (39.0-53.0) % MCV 93.6 (80.0-100.0) fL MCH 29.1 (25.0-35.0) pg MCHC 31.1 (31.0-37.0) g/dL RDW 14.2 (11.5-15.5) % Plt Count 252 (150-450) k/uL Neutrophils % 54 % Lymphocytes % 36 % Monocytes % 5 % Eosinophils % 3 % Basophils % 1 % Neutrophils # 4.1 (1.3-7.7) k/uL Lymphocytes # 2.7 (1.0-4.8) k/uL Monocytes # 0.4 (0-1.0) k/uL Eosinophils # 0.2 (0-0.7) k/uL Basophils # 0.0 (0-0.2) k/uL Sodium 145 (137-145) mmol/L Potassium 3.7 (3.5-5.1) mmol/L Chloride 108 H (98-107) mmol/L Carbon Dioxide 24 (22-30) mmol/L Anion Gap 13 mmol/L BUN 7 L (9-20) mg/dL Creatinine 0.79 (0.66-1.25) mg/dL Est GFR (CKD-EPI)AfAm >90 (>60 ml/min/1.73 sqM) Est GFR (CKD-EPI)NonAf >90 (>60 ml/min/1.73 sqM) Glucose 73 L (74-99) mg/dL Calcium 9.5 (8.4-10.2) mg/dL Total Bilirubin 0.3 (0.2-1.3) mg/dL AST 36 (17-59) U/L ALT 18 L (21-72) U/L Alkaline Phosphatase 109 (38-126) U/L Total Protein 7.1 (6.3-8.2) g/dL Albumin 4.4 (3.5-5.0) g/dL Disposition Clinical Impression: Alcohol abuse Disposition: HOME SELF-CARE Condition: Stable Instructions (If sedation given, give patient instructions): Alcohol Intoxication (ED) Is patient prescribed a controlled substance at d/c from ED?: No Referrals: Kermit Partida MD [Primary Care Provider] - 1-2 days
[2019-02-25 22:26] VITALS: BP 140/91; PULSE 92; RESP 18; TEMP 97.5
[2019-02-26 06:36] LABS: Basophils % (A) 1 %; Eosinophils # (A) 0.2 k/uL (0-0.7); Eosinophils % (A) 3 %; HCT 41.6 % (39.0-53.0); HGB 12.9 gm/dL (13.0-17.5); Lymphocytes # (A) 2.7 k/uL (1.0-4.8); Lymphocytes % (A) 36 %; MCH 29.1 pg (25.0-35.0); MCHC 31.1 g/dL (31.0-37.0); MCV 93.6 fL (80.0-100.0); Mean Platelet Volume 7.2; Monocytes # (A) 0.4 k/uL (0-1.0); Monocytes % (A) 5 %; Neutrophils # (A) 4.1 k/uL (1.3-7.7); Neutrophils % (A) 54 %; Platelet Count 252 k/uL (150-450); RBC 4.44 m/uL (4.30-5.90); RDW 14.2 % (11.5-15.5); WBC 7.6 k/uL (3.8-10.6)
[2019-02-26 07:35] LABS: ALT 18 U/L (21-72); AST 36 U/L (17-59); African American GFR (CKD) >90 (>60 ml/min/1.73 sqM); Albumin 4.4 g/dL (3.5-5.0); Alkaline Phosphatase 109 U/L (38-126); Anion Gap 13 mmol/L; Blood Urea Nitrogen 7 mg/dL (9-20); Calcium 9.5 mg/dL (8.4-10.2); Carbon Dioxide 24 mmol/L (22-30); Chloride 108 mmol/L (98-107); Glucose 73 mg/dL (74-99); Potassium 3.7 mmol/L (3.5-5.1); Sodium 145 mmol/L (137-145); Total Bilirubin 0.3 mg/dL (0.2-1.3); Total Protein 7.1 g/dL (6.3-8.2)
== END 2019-02-26 02:20 | disposition home or self-care (01) ==
LOC: EC 21:53
DX: F10.129 Alcohol abuse with intoxication, unspecified (principal); I10 Essential (primary) hypertension; F41.9 Anxiety disorder, unspecified; F25.0 Schizoaffective disorder, bipolar type; F17.200 Nicotine dependence, unspecified, uncomplicated; Z79.899 Other long term (current) drug therapy; Z59.0 Homelessness
CPT/HCPCS: 36415; 80053; 82075; 85025; 96360; 99284; 99285

== ENCOUNTER 2019-02-26 17:56 | Emergency (ER) | payer OTHER ==
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
[2019-02-26 19:34] LABS: Appearance,Urine Clear (Clear); Bilirubin,Urine Negative (Negative); Blood,Urine Negative (Negative); Color,Urine Colorless; Glucose,Urine (UA) Negative (Negative); Ketones,Urine Negative (Negative); Leukocyte Esterase,Urine Negative (Negative); Nitrite,Urine Negative (Negative); PH, Urine 5.5 (5.0-8.0); Protein,Urine Negative (Negative); Specific Gravity,Urine 1.003 (1.001-1.035); Urobilinogen,Urine <2.0 mg/dL (<2.0)
[2019-02-26 19:53] LABS: Basophils % (A) 0 %; Eosinophils # (A) 0.3 k/uL (0-0.7); Eosinophils % (A) 2 %; HCT 43.6 % (39.0-53.0); HGB 13.9 gm/dL (13.0-17.5); Lymphocytes # (A) 3.2 k/uL (1.0-4.8); Lymphocytes % (A) 25 %; MCH 29.3 pg (25.0-35.0); MCHC 31.8 g/dL (31.0-37.0); MCV 92.1 fL (80.0-100.0); Mean Platelet Volume 6.7; Monocytes # (A) 0.8 k/uL (0-1.0); Monocytes % (A) 6 %; Neutrophils # (A) 8.3 k/uL (1.3-7.7); Neutrophils % (A) 65 %; Platelet Count 339 k/uL (150-450); RBC 4.73 m/uL (4.30-5.90); RDW 14.3 % (11.5-15.5); WBC 12.8 k/uL (3.8-10.6)
[2019-02-26 20:05] LABS: ALT 20 U/L (21-72); AST 40 U/L (17-59); Albumin 4.6 g/dL (3.5-5.0); Alkaline Phosphatase 118 U/L (38-126); Anion Gap 10 mmol/L; Blood Urea Nitrogen 7 mg/dL (9-20); Calcium 9.5 mg/dL (8.4-10.2); Carbon Dioxide 24 mmol/L (22-30); Chloride 112 mmol/L (98-107); Creatine Kinase 610 U/L (55-170); Glucose 70 mg/dL (74-99); Lipase 823 U/L (23-300); Magnesium 2.1 mg/dL (1.6-2.3); Potassium 4.3 mmol/L (3.5-5.1); Sodium 146 mmol/L (137-145); Total Bilirubin 0.2 mg/dL (0.2-1.3); Total Protein 7.5 g/dL (6.3-8.2)
[2019-02-26 20:08] LABS: Alcohol 258 mg/dL
[2019-02-26 20:33] LABS: Amphetamine Screen,Urine Not Detected (NotDetected); Barbiturate Screen,Urine Not Detected (NotDetected); Benzodiazepines Screen,Urine Not Detected (NotDetected); Cocaine Screen,Urine Not Detected (NotDetected); Methadone Screen, Urine Not Detected (NotDetected); Opiate Screen,Urine Not Detected (NotDetected); Oxycodone Screen, Urine Not Detected (NotDetected); Phencyclidine Screen,Urine Not Detected (NotDetected); Tricyclic Antidepressant,Urine Not Detected (NotDetected); Urn Cannabinoid Scrn Not Detected (NotDetected)
--- NOTE | 2019-02-26 20:34 | CT ---
EXAMINATION TYPE: CT brain cspine wo con DATE OF EXAM: 02/26/2019 COMPARISON: CT brain and cervical spine June 15, 2018. HISTORY: ams, attempted suicide with headache and neck pain. CT DLP: 1468.7 mGycm. Automated Exposure Control for Dose Reduction was Utilized. TECHNIQUE: CT scan of the head and cervical spine are performed without contrast. FINDINGS: There is no acute intracranial hemorrhage or midline shift identified. Stable ventricular prominence and colpocephaly out of proportion to degree of sulcal effacement. The globes are intact and the visualized sinuses are predominantly clear. Tiny mucous retention cyst or polyp anterior inf erior right maxillary sinus incidentally noted. Calvarium intact. Cervical spine is visualized in its entirety from C1 through upper thoracic levels and redemonstrates straightened alignment without evidence of acute fracture or dislocation. Prevertebral soft tissue appears within normal limits. The C1-C2 articulation is within normal limits on the coronal images. There is redemonstration of anterior fusion of the mid C4 vertebral through the superior C7 level. T here is redemonstration of mild to moderate disc space narrowing C4-C5 and C5-C6 levels with advanced disc space narrowing C6-C7 level. There is redemonstration of advanced disc space narrowing with end plate sclerosis and moderate spurring at C7-T1 level. No new large posterior disc herniation is prese nt. Moderate anterior spurring C3 level is redemonstrated. Review of axial images shows uncovertebral facet degenerative changes bilaterally contributing to mul tilevel neural foraminal narrowing most prominent at C3-C4 level. Thyroid gland is normal in size. Sofiya ng apices show emphysematous change. IMPRESSION: 1. There is no acute fracture or dislocation evident in the cervical spine. Stable multilevel degener ative changes. 2. No acute intracranial hemorrhage or midline shift is seen. Stable ventricular prominence or modera te hydrocephalus.
[2019-02-26] MEDS ORDERED: SODIUM CHLORIDE 0.9% 1,000 ML IV STA (20:56)
[2019-02-27 04:28] VITALS: BP 133/81; PULSE 95; RESP 16; TEMP 98
== END 2019-02-27 04:24 | disposition home or self-care (01) ==
LOC: EC 17:56
DX: F10.10 Alcohol abuse, uncomplicated (principal); R45.851 Suicidal ideations; F39 Unspecified mood [affective] disorder; I10 Essential (primary) hypertension; F25.9 Schizoaffective disorder, unspecified; F31.9 Bipolar disorder, unspecified; F41.9 Anxiety disorder, unspecified; F17.200 Nicotine dependence, unspecified, uncomplicated; Z79.899 Other long term (current) drug therapy
CPT/HCPCS: 99285; 82075; 36415; 93005; 80053; 82550; 83690; 83735; 85025; 81003; 80306; 72125; 70450; 96360; G0480; 80320

== ENCOUNTER 2019-02-27 13:40 | Emergency (ER) | payer OTHER ==
[2019-02-27] MEDS ORDERED: SODIUM CHLORIDE 0.9% 1,000 ML IV ONE (13:59)
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
[2019-02-27 14:39] LABS: Basophils % (A) 0 %; Eosinophils # (A) 0.2 k/uL (0-0.7); Eosinophils % (A) 2 %; HCT 42.4 % (39.0-53.0); HGB 13.2 gm/dL (13.0-17.5); Lymphocytes # (A) 2.6 k/uL (1.0-4.8); Lymphocytes % (A) 25 %; MCHC 31.2 g/dL (31.0-37.0); Mean Platelet Volume 6.6; Monocytes # (A) 0.8 k/uL (0-1.0); Monocytes % (A) 7 %; Neutrophils # (A) 6.7 k/uL (1.3-7.7); Neutrophils % (A) 64 %; Platelet Count 285 k/uL (150-450); RBC 4.56 m/uL (4.30-5.90); RDW 14.3 % (11.5-15.5); WBC 10.6 k/uL (3.8-10.6)
[2019-02-27 14:50] LABS: ALT 21 U/L (21-72); AST 37 U/L (17-59); Albumin 4.1 g/dL (3.5-5.0); Alkaline Phosphatase 105 U/L (38-126); Anion Gap 9 mmol/L; Blood Urea Nitrogen 8 mg/dL (9-20); Calcium 8.8 mg/dL (8.4-10.2); Carbon Dioxide 26 mmol/L (22-30); Chloride 110 mmol/L (98-107); Glucose 70 mg/dL (74-99); Magnesium 2.2 mg/dL (1.6-2.3); Potassium 3.9 mmol/L (3.5-5.1); Sodium 145 mmol/L (137-145); Total Bilirubin 0.3 mg/dL (0.2-1.3); Total Protein 6.6 g/dL (6.3-8.2)
[2019-02-27 15:01] LABS: Alcohol 249 mg/dL
[2019-02-27 16:15] LABS: Amphetamine Screen,Urine Not Detected (NotDetected); Barbiturate Screen,Urine Detected (NotDetected); Benzodiazepines Screen,Urine Not Detected (NotDetected); Cocaine Screen,Urine Not Detected (NotDetected); Methadone Screen, Urine Not Detected (NotDetected); Opiate Screen,Urine Not Detected (NotDetected); Oxycodone Screen, Urine Not Detected (NotDetected); Phencyclidine Screen,Urine Not Detected (NotDetected); Tricyclic Antidepressant,Urine Detected (NotDetected); Urn Cannabinoid Scrn Not Detected (NotDetected)
[2019-02-27 21:25] VITALS: RESP 18
[2019-02-27 21:33] VITALS: BP 124/87; PULSE 88; TEMP 98.7
== END 2019-02-27 21:33 | disposition home or self-care (01) ==
LOC: EC 13:40
DX: F43.21 Adjustment disorder with depressed mood (principal); F10.129 Alcohol abuse with intoxication, unspecified; R45.851 Suicidal ideations; I10 Essential (primary) hypertension; F31.9 Bipolar disorder, unspecified; F41.9 Anxiety disorder, unspecified; F25.9 Schizoaffective disorder, unspecified; F17.200 Nicotine dependence, unspecified, uncomplicated; Z79.899 Other long term (current) drug therapy
CPT/HCPCS: 36415; 80053; 83735; 85025; 80306; 99285; 96360; G0480; 80320

== ENCOUNTER 2019-03-01 04:24 | Emergency (ER) | payer OTHER ==
[2019-03-01] MEDS ORDERED: MAG HYDROX/AL HYDROX/SIMETH 30 ML, HYOSCYAMINE ELIXIR 10 ML, CIMETIDINE HCL 300 MG, LID... PO STA ×4 (06:45)
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
--- NOTE | 2019-03-01 07:15 | XR ---
EXAMINATION TYPE: XR chest 2V DATE OF EXAM: 03/01/2019 HISTORY: Pain. REFERENCE: Previous study dated 09/28/2018. FINDINGS: The lungs remain clear. Pleural spaces are clear. The heart is not enlarged. IMPRESSION: NORMAL CHEST.
[2019-03-01 07:39] VITALS: BP 154/92; PULSE 92; RESP 18; TEMP 98
== END 2019-03-01 07:41 | disposition home or self-care (01) ==
LOC: EC 04:24
DX: F25.0 Schizoaffective disorder, bipolar type (principal); F31.9 Bipolar disorder, unspecified; F41.9 Anxiety disorder, unspecified; I10 Essential (primary) hypertension; F17.200 Nicotine dependence, unspecified, uncomplicated; Z79.899 Other long term (current) drug therapy
CPT/HCPCS: 71046; 82075; 93005; 99285

== ENCOUNTER 2019-03-01 11:19 | Emergency (ER) | payer OTHER ==
[2019-03-01 12:20] VITALS: RESP 18
--- NOTE | 2019-03-01 12:25 | ED ---
Psych HPI - General Chief Complaint: Psychiatric Symptoms Stated Complaint: Mental health Time Seen by Provider: 03/01/19 12:18 Source: patient Mode of arrival: ambulatory - History of Present Illness Initial Comments: 53-year-old male presenting today for chief complaint of suicidal thoughts. Patient states she was seen here earlier today he states his thoughts had started after he is not able to return to the long term. Patient states he really feels like he needs to kill himself now. Patient denies any attempt. Patient denies any homicidal ideation. Patient had complaints of burning chest pain earlier this morning. He states this has since resolved. Patient denies experiencing this again. Patient states he feels well aside from depression and suicidal ideation. Patient denies a specific plan. Remaining review of systems negative, patient denies any recent fever, chills, shortness of breath, chest pain, back pain, abdominal pain, nausea or vomiting, numbness or tingling, dysuria or hematuria, constipation or diarrhea, headaches or visual changes, or any other complaints. Upon gross examination dried feces on the legs, pt states he had an accident a few days prior and didnt have anywhere to shower. - Related Data Home Medications Medication Instructions Recorded Confirmed Atorvastatin [Lipitor] 20 mg PO DAILY 08/02/18 03/01/19 Loratadine [Claritin] 10 mg PO DAILY 08/02/18 03/01/19 amLODIPine [Norvasc] 2.5 mg PO DAILY 08/02/18 03/01/19 FLUoxetine HCL [PROzac] 40 mg PO DAILY 01/22/19 03/01/19 [place] Carbonate 600 mg PO HS 01/22/19 03/01/19 Mirtazapine 30 mg PO HS 01/25/19 03/01/19 Vivitrol 380mg Er 380 mg IM Q28D 02/25/19 03/01/19 Previous Rx's Medication Instructions Recorded QUEtiapine FUMARATE [SEROquel] 300 mg PO HS #7 tab 10/05/18 Allergies Allergy/AdvReac Type Severity Reaction Status Date / Time No Known Allergies Allergy Verified 03/01/19 12:20 Review of Systems ROS Statement: Those systems with pertinent positive or pertinent negative responses have been documented in the HPI. ROS Other: All systems not noted in ROS Statement are negative. Past Medical History Past Medical History: Chest Pain / Angina, Hypertension Additional Past Medical History / Comment(s): ETOH History of Any Multi-Drug Resistant Organisms: None Reported Past Surgical History: Orthopedic Surgery Additional Past Surgical History / Comment(s): Right knee surgery and salma placed in left femur, 3 surgeries on his eyes. Past Anesthesia/Blood Transfusion Reactions: No Reported Reaction Past Psychological History: Anxiety, Bipolar, Depression, Schizoaffective Disorder Smoking Status: Current every day smoker Past Alcohol Use History: Abuse, Daily, Heavy Past Drug Use History: None Reported - Past Family History Mother Additional Family Medical History / Comment(s): Mother at age 36 from motor vehicle accident. His father is also past but does not know the cause or his age. Patient has 3 brothers that are apparently without major medical problems. General Exam - General Exam Comments Initial Comments: General: The patient is awake and alert, in no distress, and does not appear acutely ill. Eye: Pupils are equal, round and reactive to light, extra-ocular movements are intact. No nystagmus. There is normal conjunctiva bilaterally. No signs of icterus. Ears, nose, mouth and throat: There are moist mucous membranes and no oral lesions. Neck: The neck is supple, there is no tenderness or JVD. Cardiovascular: There is a regular rate and rhythm. No murmur, rub or gallop is appreciated. Respiratory: Lungs are clear to auscultation, respirations are non-labored, breath sounds are equal. No wheezes, stridor, rales, or rhonchi. Gastrointestinal: Soft, non-distended, non-tender abdomen without masses or organomegaly noted. There is no rebound or guarding present. No CVA tenderness. Bowel sounds are unremarkable. Musculoskeletal: Normal ROM, no tenderness. Strength 5/5. Sensation intact. Pulses equal bilaterally 2+. Neurological: A&O x 3. CN II-XII intact, There are no obvious motor or sensory deficits. Coordination appears grossly intact. Speech is normal. Skin: Skin is warm and dry and no rashes or lesions are noted. Psychiatric: Cooperative, appropriate mood & affect, normal judgment. Limitations: no limitations Course Vital Signs 03/01/19 12:14 Temperature 98.5 F Pulse Rate 68 Respiratory 18 Rate Blood Pressure 146/81 O2 Sat by Pulse 99 Oximetry Medical Decision Making - Medical Decision Making 53-year-old male presenting today for chief complaint of suicidal thoughts. Pt has history of alcoholic dementia, well known to the ER. Recently dismissed from his long term, pt homeless. Pt has no other complaints nor plan upon examination. Pt showered, medically cleared for evaluation. EPS states that there is a warrant out for patient arrest and do not feel pt is a threat to himself nor others, they recommended discharge. I agree with impression. Discussed case with Dr. Lynch who is agreeable with discharge. Disposition Clinical Impression: Depression Disposition: HOME SELF-CARE Condition: Good Instructions (If sedation given, give patient instructions): Depression (ED) Additional Instructions: Please use medication as discussed. Please follow-up with family doctor in the next 2 days of symptoms have not improved. Please return to emergency room if the symptoms increase or worsen or for any other concerns. Is patient prescribed a controlled substance at d/c from ED?: No Referrals: Kermit Partida MD [Primary Care Provider] - 1-2 days Time of Disposition: 17:32
[2019-03-01 17:54] VITALS: BP 139/75; PULSE 75; TEMP 99.3
== END 2019-03-01 17:53 | disposition home or self-care (01) ==
LOC: EC 11:19
DX: F32.9 Major depressive disorder, single episode, unspecified (principal); R45.851 Suicidal ideations; I10 Essential (primary) hypertension; F41.9 Anxiety disorder, unspecified; F17.200 Nicotine dependence, unspecified, uncomplicated; Z79.899 Other long term (current) drug therapy
CPT/HCPCS: 82075; 99285

== ENCOUNTER 2019-03-02 02:00 | Emergency (ER) | payer OTHER ==
[2019-03-02 02:20] VITALS: BP 131/84; PULSE 85; RESP 18; TEMP 97.7
--- NOTE | 2019-03-02 02:30 | ED ---
Medical Clearance HPI - General Chief complaint: Medical Clearance Stated complaint: Mental Health Time Seen by Provider: 03/02/19 02:06 Source: police Mode of arrival: ambulatory - History of Present Illness Initial comments: Patient is 53-year-old man brought to have clearance for police custody. The patient reportedly picked up for outstanding warrants. Patient's denies co mplaints at my interview. Denies trauma. MD Complaint: medical clearance requested Reason for Medical Clearance: other Place: street Traumatic Symptoms: denies traumatic injury Treatments Prior to Arrival: none Home medications: Home Medications Medication Instructions Recorded Confirmed Atorvastatin [Lipitor] 20 mg PO DAILY 08/02/18 03/01/19 Loratadine [Claritin] 10 mg PO DAILY 08/02/18 03/01/19 amLODIPine [Norvasc] 2.5 mg PO DAILY 08/02/18 03/01/19 FLUoxetine HCL [PROzac] 40 mg PO DAILY 01/22/19 03/01/19 [place] Carbonate 600 mg PO HS 01/22/19 03/01/19 Mirtazapine 30 mg PO HS 01/25/19 03/01/19 Vivitrol 380mg Er 380 mg IM Q28D 02/25/19 03/01/19 Previous Rx's Medication Instructions Recorded QUEtiapine FUMARATE [SEROquel] 300 mg PO HS #7 tab 10/05/18 Allergies/Adverse reactions: Allergies Allergy/AdvReac Type Severity Reaction Status Date / Time No Known Allergies Allergy Verified 03/01/19 12:20 Review of Systems ROS Statement: Those systems with pertinent positive or pertinent negative responses have been documented in the HPI. ROS Other: All systems not noted in ROS Statement are negative. Respiratory: Denies: cough, dyspnea Gastrointestinal: Denies: abdominal pain, vomiting Neurological: Denies: headache Psychiatric: Denies: suicidal thoughts Past Medical History Past Medical History: Chest Pain / Angina, Hypertension Additional Past Medical History / Comment(s): ETOH History of Any Multi-Drug Resistant Organisms: None Reported Past Surgical History: Orthopedic Surgery Additional Past Surgical History / Comment(s): Right knee surgery and salma placed in left femur, 3 surgeries on his eyes. Past Anesthesia/Blood Transfusion Reactions: No Reported Reaction Past Psychological History: Anxiety, Bipolar, Depression, Schizoaffective Disorder Smoking Status: Current every day smoker Past Alcohol Use History: Abuse, Daily, Heavy Past Drug Use History: None Reported - Past Family History Mother Additional Family Medical History / Comment(s): Mother at age 36 from motor vehicle accident. His father is also past but does not know the cause or his age. Patient has 3 brothers that are apparently without major medical problems. General Exam Limitations: no limitations General appearance: alert, in no apparent distress Head exam: Present: atraumatic, normocephalic Respiratory exam: Present: normal lung sounds bilaterally. Absent: respiratory distress, wheezes, rales, rhonchi, stridor Cardiovascular Exam: Present: regular rate, normal rhythm, normal heart sounds. Absent: systolic murmur, diastolic murmur, rubs, gallop GI/Abdominal exam: Present: soft. Absent: distended, tenderness, guarding, rebound Extremities exam: Present: normal inspection, normal capillary refill. Absent: pedal edema, calf tenderness Neurological exam: Present: alert, normal gait. Absent: motor sensory deficit Skin exam: Present: warm, dry, intact, normal color. Absent: rash Course Vital Signs 03/02/19 02:16 Temperature 97.7 F Pulse Rate 85 Respiratory 18 Rate Blood Pressure 131/84 O2 Sat by Pulse 98 Oximetry Disposition Clinical Impression: Medical clearance for incarceration Disposition: OTHER INSTITUTION NOT DEFINED Condition: Good Is patient prescribed a controlled substance at d/c from ED?: No Referrals: Kermit Partida MD [Primary Care Provider] - 1-2 days - Out of Hospital Transfer - Req. Specs Out of Hospital Transfer - Requested Specifics: Other Non-Acute
== END 2019-03-02 02:28 | disposition home or self-care (01) ==
LOC: EC 02:00
DX: Z00.8 Encounter for other general examination (principal); I10 Essential (primary) hypertension; F31.9 Bipolar disorder, unspecified; F25.9 Schizoaffective disorder, unspecified; F41.9 Anxiety disorder, unspecified; F17.200 Nicotine dependence, unspecified, uncomplicated; Z79.899 Other long term (current) drug therapy
CPT/HCPCS: 99282

== ENCOUNTER 2019-03-03 17:23 | Emergency (ER) | payer OTHER ==
--- NOTE | 2019-03-03 17:44 | ED ---
General Adult HPI - General Source: police, EMS Mode of arrival: EMS <Anibal Lynch D - Last Filed: 03/04/19 00:56> <VelázquezAndradeMarlene P - Last Filed: 03/04/19 06:54> - General Chief complaint: Psychiatric Symptoms Stated complaint: ETOH Time Seen by Provider: 03/03/19 17:32 - History of Present Illness Initial comments: Dictation was produced using [employer] dictation software. please excuse any grammatical, word or spelling errors. Chief Complaint: 53 well-known to emergency department presents with EtOH in toxication. History of Present Illness: 53-year-old male he is a daily alcohol drinker. Patient is here almost every other day for the last 2 months for EtOH intoxication. Patient was allegedly caught stealing beer at the local grocery store he was caught. He appeared inebriated was brought to the emergency department. He reports that he is feeling suicidal. Patient has no complaints at this time. This is patient's 10th visit this month. The ROS documented in this emergency department record has been reviewed and confirmed by me. Those systems with pertinent positive or negative responses have been documented in the HPI. All other systems are other negative and/or noncontributory. PHYSICAL EXAM: General Impression: Alert and oriented x3, not in acute distress HEENT: Normocephalic atraumatic, extra-ocular movements intact, pupils equal and reactive to light bilaterally, mucous membranes moist. Cardiovascular: Heart regular rate and rhythm, S1&S2 audible, no murmurs, rubs or gallops Chest: Lungs clear to auscultation bilaterally, no rhonchi, no wheeze, no rales Abdomen: Bowel sounds present, abdomen soft, non-tender, non-distended, no organomegaly Musculoskeletal: Pulses present and equal in all extremities, no peripheral edema Motor: no focal deficits noted Neurological: CN II-XII grossly intact, no focal motor or sensory deficits noted Skin: Intact with no visualized rashes ED course: 53year-old male presents with EtOH intoxication. He reports he is suicidal. As upon arrival are within acceptable limits. Patient smells of EtOH. Does report suicidality. Return evaluation obtained. CBC unremarkable. Sodium 146 echo secondary to the opponent rajat. Glucose 46. Patient given by mouth glucose with improvement of sugars to 108. Serum alcohol is 286. Patient's petition by police law enforcement. Pending EPS evaluation. Patient care sent out to Dr. Velázquez following EPS evaluation and reevaluation for clinical sobriety. (Anibal Lynch) - Related Data Home Medications Medication Instructions Recorded Confirmed Atorvastatin [Lipitor] 20 mg PO DAILY 08/02/18 03/03/19 Loratadine [Claritin] 10 mg PO DAILY 08/02/18 03/03/19 amLODIPine [Norvasc] 2.5 mg PO DAILY 08/02/18 03/03/19 FLUoxetine HCL [PROzac] 40 mg PO DAILY 01/22/19 03/03/19 [place] Carbonate 600 mg PO HS 01/22/19 03/03/19 Mirtazapine 30 mg PO HS 01/25/19 03/03/19 Vivitrol 380mg Er 380 mg IM Q28D 02/25/19 03/03/19 Previous Rx's Medication Instructions Recorded QUEtiapine FUMARATE [SEROquel] 300 mg PO HS #7 tab 10/05/18 Allergies Allergy/AdvReac Type Severity Reaction Status Date / Time No Known Allergies Allergy Verified 03/03/19 17:47 Review of Systems ROS Other: All systems not noted in ROS Statement are negative. <Anibal Lynch - Last Filed: 03/04/19 00:56> ROS Other: All systems not noted in ROS Statement are negative. <Marlene Velázquez - Last Filed: 03/04/19 06:54> ROS Statement: Those systems with pertinent positive or pertinent negative responses have been documented in the HPI. Past Medical History Past Medical History: Chest Pain / Angina, Hypertension Additional Past Medical History / Comment(s): ETOH History of Any Multi-Drug Resistant Organisms: None Reported Past Surgical History: Orthopedic Surgery Additional Past Surgical History / Comment(s): Right knee surgery and salma placed in left femur, 3 surgeries on his eyes. Past Anesthesia/Blood Transfusion Reactions: No Reported Reaction Past Psychological History: Anxiety, Bipolar, Depression, Schizoaffective Disorder Smoking Status: Current every day smoker Past Alcohol Use History: Abuse, Daily, Heavy Past Drug Use History: None Reported - Past Family History Mother Additional Family Medical History / Comment(s): Mother at age 36 from motor vehicle accident. His father is also past but does not know the cause or his age. Patient has 3 brothers that are apparently without major medical problems. <Anibal Lynch - Last Filed: 03/04/19 00:56> Course Vital Signs 03/03/19 03/03/19 03/04/19 17:30 19:48 03:35 Temperature 98 F 98.7 F Pulse Rate 84 89 96 Respiratory 18 16 16 Rate Blood Pressure 123/78 106/64 128/77 O2 Sat by Pulse 97 98 96 Oximetry Medical Decision Making - Lab Data Result diagrams: 03/03/19 22:05 03/03/19 17:57 <Anibal Lynch - Last Filed: 03/04/19 00:56> - Lab Data Result diagrams: 03/03/19 22:05 03/03/19 17:57 <Marlene Velázquez - Last Filed: 03/04/19 06:54> - Medical Decision Making Patient care was signed out to me by Dr. ELIZABETH, patient presented intoxicated he was found to be stealing alcohol and was caught by the police. He then started reporting suicidal thoughts. At the time of sign out patient was awaiting sobriety to be evaluated by EPS. Patient was determined to be sober around 5 AM he was evaluated by EPS at that time it was determined the patient is stable for discharge home with continued follow [facility]. (Marlene Velázquez) - Lab Data Lab Results 03/03/19 03/03/19 03/03/19 Range/Units 17:57 19:53 21:58 WBC (3.8-10.6) k/uL RBC (4.30-5.90) m/uL Hgb (13.0-17.5) gm/dL Hct (39.0-53.0) % MCV (80.0-100.0) fL MCH (25.0-35.0) pg MCHC (31.0-37.0) g/dL RDW (11.5-15.5) % Plt Count (150-450) k/uL Neutrophils % % Lymphocytes % % Monocytes % % Eosinophils % % Basophils % % Neutrophils # (1.3-7.7) k/uL Lymphocytes # (1.0-4.8) k/uL Monocytes # (0-1.0) k/uL Eosinophils # (0-0.7) k/uL Basophils # (0-0.2) k/uL Sodium 146 H (137-145) mmol/L Potassium 4.5 (3.5-5.1) mmol/L Chloride 109 H (98-107) mmol/L Carbon Dioxide 24 (22-30) mmol/L Anion Gap 13 mmol/L BUN 6 L (9-20) mg/dL Creatinine 0.56 L (0.66-1.25) mg/dL Est GFR (CKD-EPI)AfAm >90 (>60 ml/min/1.73 sqM) Est GFR (CKD-EPI)NonAf >90 (>60 ml/min/1.73 sqM) Glucose 46 L* (74-99) mg/dL POC Glucose (mg/dL) 108 H (75-99) mg/dL POC Glu Digital Content Marketing Manager ID Marlene Mckeon Calcium 9.6 (8.4-10.2) mg/dL Magnesium 2.1 (1.6-2.3) mg/dL Urine Opiates Screen Not Detected (NotDetected) Ur Oxycodone Screen Not Detected (NotDetected) Urine Methadone Screen Not Detected (NotDetected) Ur Propoxyphene Screen Not Detected (NotDetected) Ur Barbiturates Screen Not Detected (NotDetected) U Tricyclic Antidepress Not Detected (NotDetected) Ur Phencyclidine Scrn Not Detected (NotDetected) Ur Amphetamines Screen Not Detected (NotDetected) U Methamphetamines Scrn Not Detected (NotDetected) U Benzodiazepines Scrn Not Detected (NotDetected) Urine Cocaine Screen Not Detected (NotDetected) U Marijuana (THC) Screen Not Detected (NotDetected) Serum Alcohol 286 H* mg/dL 03/03/19 Range/Units 22:05 WBC 7.7 (3.8-10.6) k/uL RBC 4.19 L (4.30-5.90) m/uL Hgb 12.2 L (13.0-17.5) gm/dL Hct 39.0 (39.0-53.0) % MCV 93.2 (80.0-100.0) fL MCH 29.1 (25.0-35.0) pg MCHC 31.3 (31.0-37.0) g/dL RDW 14.6 (11.5-15.5) % Plt Count 292 (150-450) k/uL Neutrophils % 55 % Lymphocytes % 31 % Monocytes % 6 % Eosinophils % 5 % Basophils % 1 % Neutrophils # 4.2 (1.3-7.7) k/uL Lymphocytes # 2.4 (1.0-4.8) k/uL Monocytes # 0.5 (0-1.0) k/uL Eosinophils # 0.4 (0-0.7) k/uL Basophils # 0.0 (0-0.2) k/uL Sodium (137-145) mmol/L Potassium (3.5-5.1) mmol/L Chloride (98-107) mmol/L Carbon Dioxide (22-30) mmol/L Anion Gap mmol/L BUN (9-20) mg/dL Creatinine (0.66-1.25) mg/dL Est GFR (CKD-EPI)AfAm (>60 ml/min/1.73 sqM) Est GFR (CKD-EPI)NonAf (>60 ml/min/1.73 sqM) Glucose (74-99) mg/dL POC Glucose (mg/dL) (75-99) mg/dL POC Glu Digital Content Marketing Manager ID Calcium (8.4-10.2) mg/dL Magnesium (1.6-2.3) mg/dL Urine Opiates Screen (NotDetected) Ur Oxycodone Screen (NotDetected) Urine Methadone Screen (NotDetected) Ur Propoxyphene Screen (NotDetected) Ur Barbiturates Screen (NotDetected) U Tricyclic Antidepress (NotDetected) Ur Phencyclidine Scrn (NotDetected) Ur Amphetamines Screen (NotDetected) U Methamphetamines Scrn (NotDetected) U Benzodiazepines Scrn (NotDetected) Urine Cocaine Screen (NotDetected) U Marijuana (THC) Screen (NotDetected) Serum Alcohol mg/dL Disposition <Anibal Lynch - Last Filed: 03/04/19 00:56> Is patient prescribed a controlled substance at d/c from ED?: No <Marlene Velázquez P - Last Filed: 03/04/19 06:54> Clinical Impression: Alcohol abuse Disposition: HOME SELF-CARE Condition: Stable Instructions (If sedation given, give patient instructions): Alcohol Intoxication (ED) Additional Instructions: Follow up with CM today Referrals: Kermit Partida MD [Primary Care Provider] - 1-2 days
[2019-03-03 18:20] LABS: Anion Gap 13 mmol/L; Blood Urea Nitrogen 6 mg/dL (9-20); Calcium 9.6 mg/dL (8.4-10.2); Carbon Dioxide 24 mmol/L (22-30); Chloride 109 mmol/L (98-107); Magnesium 2.1 mg/dL (1.6-2.3); Potassium 4.5 mmol/L (3.5-5.1); Sodium 146 mmol/L (137-145)
[2019-03-03 18:30] LABS: Alcohol 286 mg/dL; Glucose 46 mg/dL (74-99)
[2019-03-03] MEDS ORDERED: SODIUM CHLORIDE 0.9% 1,000 ML IV STA (18:45)
[2019-03-03 19:48] VITALS: RESP 16
[2019-03-03 19:55] LABS: Glucose,Whole Blood 108 mg/dL (75-99)
[2019-03-03 22:15] LABS: Basophils % (A) 1 %; Eosinophils # (A) 0.4 k/uL (0-0.7); Eosinophils % (A) 5 %; HGB 12.2 gm/dL (13.0-17.5); Lymphocytes # (A) 2.4 k/uL (1.0-4.8); Lymphocytes % (A) 31 %; MCH 29.1 pg (25.0-35.0); MCHC 31.3 g/dL (31.0-37.0); MCV 93.2 fL (80.0-100.0); Mean Platelet Volume 6.8; Monocytes # (A) 0.5 k/uL (0-1.0); Monocytes % (A) 6 %; Neutrophils # (A) 4.2 k/uL (1.3-7.7); Neutrophils % (A) 55 %; Platelet Count 292 k/uL (150-450); RBC 4.19 m/uL (4.30-5.90); RDW 14.6 % (11.5-15.5); WBC 7.7 k/uL (3.8-10.6)
[2019-03-03 22:40] LABS: Amphetamine Screen,Urine Not Detected (NotDetected); Barbiturate Screen,Urine Not Detected (NotDetected); Benzodiazepines Screen,Urine Not Detected (NotDetected); Cocaine Screen,Urine Not Detected (NotDetected); Methadone Screen, Urine Not Detected (NotDetected); Opiate Screen,Urine Not Detected (NotDetected); Oxycodone Screen, Urine Not Detected (NotDetected); Phencyclidine Screen,Urine Not Detected (NotDetected); Tricyclic Antidepressant,Urine Not Detected (NotDetected); Urn Cannabinoid Scrn Not Detected (NotDetected)
[2019-03-04 03:36] VITALS: BP 128/77; PULSE 96; TEMP 98.7
[2019-03-04] MEDS ORDERED: MULTIVITAMINS, THERA 1 EACH TAB PO SCH (09:00)
== END 2019-03-04 07:36 | disposition home or self-care (01) ==
LOC: EC 17:23
DX: F10.29 Alcohol dependence with unspecified alcohol-induced disorder (principal); R45.851 Suicidal ideations; I10 Essential (primary) hypertension; F25.9 Schizoaffective disorder, unspecified; F31.9 Bipolar disorder, unspecified; F41.9 Anxiety disorder, unspecified; F17.200 Nicotine dependence, unspecified, uncomplicated; Z79.899 Other long term (current) drug therapy
CPT/HCPCS: 36415; 80048; 83735; 85025; 80306; 99285; 96360; 96361 ×7; G0480; 80320

== ENCOUNTER 2019-10-09 00:17 | Emergency (ER) | payer OTHER ==
[2019-10-09 00:28] VITALS: TEMP 97.6
--- NOTE | 2019-10-09 02:42 | ED ---
Psych HPI - General Source: patient, police Mode of arrival: ambulatory <Tawanna Narvaez - Last Filed: 10/09/19 02:42> <Cordell Cervantes - Last Filed: 10/09/19 09:06> - General Chief Complaint: Psychiatric Symptoms Stated Complaint: Mental Health Time Seen by Provider: 10/09/19 00:30 - History of Present Illness Initial Comments: 54-year-old male patient presents to the emergency department today for evaluation of suicidal ideation. Patient states he was discharged from rehab approximately one week ago. States he has been staying at the [facility] and he cannot stand living there. Patient states that he does not like the people who live there. States makes him feel suicidal. His plan is to jump in front of a car. Patient states that he has tried to do this in the past. Denies any hallucinations per Patient states he has not been drinking alcohol. Denies any street drug use. Denies any physical symptoms or concerns. Patient denies any recent rash, fever, chills, shortness breath, chest pain, abdominal pain, nausea, vomiting, diarrhea, constipation, back pain, numbness, tingling, dizziness, weakness, hematuria, dysuria, urinary urgency, urinary frequency, headache, visual changes, or any other complaints. (Tawanna Narvaez) - Related Data Home Medications Medication Instructions Recorded Confirmed amLODIPine [Norvasc] 2.5 mg PO DAILY 08/02/18 10/09/19 [place] Carbonate 600 mg PO HS 01/22/19 10/09/19 Mirtazapine 30 mg PO HS 01/25/19 10/09/19 Vivitrol 380mg Er 380 mg IM Q28D 02/25/19 10/09/19 Atorvastatin [Lipitor] 10 mg PO DAILY 10/09/19 10/09/19 Desvenlafaxine Succinate [Pristiq 50 mg PO DAILY 10/09/19 10/09/19 ER] QUEtiapine FUMARATE [SEROquel] 400 mg PO HS 10/09/19 10/09/19 Allergies Allergy/AdvReac Type Severity Reaction Status Date / Time No Known Allergies Allergy Verified 10/09/19 08:16 Review of Systems ROS Other: All systems not noted in ROS Statement are negative. <Tawanna Narvaez - Last Filed: 10/09/19 02:42> ROS Other: All systems not noted in ROS Statement are negative. <BillyCordell - Last Filed: 10/09/19 09:06> ROS Statement: Those systems with pertinent positive or pertinent negative responses have been documented in the HPI. Past Medical History Past Medical History: Chest Pain / Angina, Hypertension Additional Past Medical History / Comment(s): ETOH History of Any Multi-Drug Resistant Organisms: None Reported Past Surgical History: Orthopedic Surgery Additional Past Surgical History / Comment(s): Right knee surgery and salma placed in left femur, 3 surgeries on his eyes. Past Anesthesia/Blood Transfusion Reactions: No Reported Reaction Past Psychological History: Anxiety, Bipolar, Depression, Schizoaffective Disorder Smoking Status: Current every day smoker Past Alcohol Use History: Abuse, Daily, Heavy Past Drug Use History: None Reported - Past Family History Mother Additional Family Medical History / Comment(s): Mother at age 36 from motor vehicle accident. His father is also past but does not know the cause or his age. Patient has 3 brothers that are apparently without major medical problems. <Tawanna Narvaez - Last Filed: 10/09/19 02:42> General Exam Limitations: no limitations General appearance: alert, in no apparent distress, other (This is a well- developed, well-nourished adult male patient in no acute distress. Vital signs upon presentation are temperature 97.6F, pulse 104, respirations 20, blood pressure 119/83, pulse ox 95% on room air.) Eye exam: Present: normal appearance, PERRL, EOMI. Absent: scleral icterus, conjunctival injection, periorbital swelling ENT exam: Present: normal exam, normal oropharynx, mucous membranes moist Respiratory exam: Present: normal lung sounds bilaterally. Absent: respiratory distress, wheezes, rales, rhonchi, stridor Cardiovascular Exam: Present: regular rate, normal rhythm, normal heart sounds. Absent: systolic murmur, diastolic murmur, rubs, gallop, clicks GI/Abdominal exam: Present: soft, normal bowel sounds. Absent: distended, tenderness, guarding, rebound, rigid Neurological exam: Present: alert, oriented X3, CN II-XII intact Psychiatric exam: Present: depressed, suicidal ideation. Absent: homicidal ideation Skin exam: Present: warm, dry, intact, normal color. Absent: rash <Tawanna Narvaez - Last Filed: 10/09/19 02:42> Course <Cordell Cervantes - Last Filed: 10/09/19 09:06> Vital Signs 10/09/19 10/09/19 00:24 05:30 Temperature 97.6 F Pulse Rate 104 H 95 Respiratory 20 17 Rate Blood Pressure 119/83 120/81 O2 Sat by Pulse 95 98 Oximetry - Reevaluation(s) Reevaluation #1: 10/09/19 09:04 Patient was seen by [facility] and discharged to the act team. (Cordell Cervantes) Medical Decision Making <Tawanna Narvaez - Last Filed: 10/09/19 02:42> - Medical Decision Making Patient presented for suicidal ideation. Plan is to jump in front of a car. He was medically clear. Was evaluated by emergency psychiatric services. It is felt that he does not meet inpatient criteria, but he is not safe to discharge without outpatient follow up. Plan is to monitor overnight and call mobile crisis unit in the morning. Care handed over to Dr. Velázquez at 0400. (Tawanna Narvaez) - Lab Data Lab Results 10/09/19 Range/Units 02:28 Urine Opiates Screen Not Detected (NotDetected) Ur Oxycodone Screen Not Detected (NotDetected) Urine Methadone Screen Not Detected (NotDetected) Ur Propoxyphene Screen Not Detected (NotDetected) Ur Barbiturates Screen Not Detected (NotDetected) U Tricyclic Antidepress Detected H (NotDetected) Ur Phencyclidine Scrn Not Detected (NotDetected) Ur Amphetamines Screen Not Detected (NotDetected) U Methamphetamines Scrn Not Detected (NotDetected) U Benzodiazepines Scrn Not Detected (NotDetected) Urine Cocaine Screen Not Detected (NotDetected) U Marijuana (THC) Screen Not Detected (NotDetected) Disposition <Tawanna Narvaez - Last Filed: 10/09/19 02:42> Is patient prescribed a controlled substance at d/c from ED?: No <Cordell Cervantes - Last Filed: 10/09/19 09:06> Clinical Impression: Depression Disposition: HOME SELF-CARE Instructions (If sedation given, give patient instructions): Depression (ED) Additional Instructions: Discharge to act team. Return for thoughts of self-harm, worsening symptoms or other concerns. Referrals: Kermit Partida MD [Primary Care Provider] - 1-2 days
[2019-10-09 02:48] LABS: Amphetamine Screen,Urine Not Detected (NotDetected); Barbiturate Screen,Urine Not Detected (NotDetected); Benzodiazepines Screen,Urine Not Detected (NotDetected); Cocaine Screen,Urine Not Detected (NotDetected); Methadone Screen, Urine Not Detected (NotDetected); Opiate Screen,Urine Not Detected (NotDetected); Oxycodone Screen, Urine Not Detected (NotDetected); Phencyclidine Screen,Urine Not Detected (NotDetected); Tricyclic Antidepressant,Urine Detected (NotDetected); Urn Cannabinoid Scrn Not Detected (NotDetected)
[2019-10-09 05:30] VITALS: RESP 17
[2019-10-09 10:11] VITALS: BP 119/79; PULSE 87
== END 2019-10-09 10:10 | disposition home or self-care (01) ==
LOC: EC 00:17
DX: F31.30 Bipolar disorder, current episode depressed, mild or moderate severity, unspecified (principal); R45.851 Suicidal ideations; I10 Essential (primary) hypertension; F41.9 Anxiety disorder, unspecified; F25.9 Schizoaffective disorder, unspecified; F17.200 Nicotine dependence, unspecified, uncomplicated; Z79.899 Other long term (current) drug therapy
CPT/HCPCS: 80306; 82075; 99285

== ENCOUNTER 2019-10-14 20:03 | Emergency (ER) | payer OTHER ==
[2019-10-14 20:11] VITALS: BP 106/81; PULSE 79; RESP 20; TEMP 98.8
--- NOTE | 2019-10-14 20:25 | ED ---
Psych HPI - General Chief Complaint: Psychiatric Symptoms Stated Complaint: Psychiatric symptoms Time Seen by Provider: 10/14/19 20:11 Source: patient, RN notes reviewed Mode of arrival: ambulatory Limitations: no limitations - History of Present Illness Initial Comments: 54-year-old male presents emergency Department chief complaint of depression, alcohol abuse. Patient has been drinking tonight and which is a daily drinker. Patient's hasn't contemplating and coming to the ER he states. States that he is depressed and may want her himself but is not sure. Patient has no physical complaints denies any illicit drug use. - Related Data Home Medications Medication Instructions Recorded Confirmed amLODIPine [Norvasc] 2.5 mg PO DAILY 08/02/18 10/09/19 [place] Carbonate 600 mg PO HS 01/22/19 10/09/19 Mirtazapine 30 mg PO HS 01/25/19 10/09/19 Vivitrol 380mg Er 380 mg IM Q28D 02/25/19 10/09/19 Atorvastatin [Lipitor] 10 mg PO DAILY 10/09/19 10/09/19 Desvenlafaxine Succinate [Pristiq 50 mg PO DAILY 10/09/19 10/09/19 ER] QUEtiapine FUMARATE [SEROquel] 400 mg PO HS 10/09/19 10/09/19 Allergies Allergy/AdvReac Type Severity Reaction Status Date / Time No Known Allergies Allergy Verified 10/09/19 08:16 Review of Systems ROS Statement: Those systems with pertinent positive or pertinent negative responses have been documented in the HPI. ROS Other: All systems not noted in ROS Statement are negative. Past Medical History Past Medical History: Chest Pain / Angina, Hypertension Additional Past Medical History / Comment(s): ETOH History of Any Multi-Drug Resistant Organisms: None Reported Past Surgical History: Orthopedic Surgery Additional Past Surgical History / Comment(s): Right knee surgery and salma placed in left femur, 3 surgeries on his eyes. Past Anesthesia/Blood Transfusion Reactions: No Reported Reaction Past Psychological History: Anxiety, Bipolar, Depression, Schizoaffective Disorder Smoking Status: Current every day smoker Past Alcohol Use History: Abuse, Daily, Heavy Past Drug Use History: None Reported - Past Family History Mother Additional Family Medical History / Comment(s): Mother at age 36 from motor vehicle accident. His father is also past but does not know the cause or his age. Patient has 3 brothers that are apparently without major medical problems. General Exam General appearance: alert, in no apparent distress Head exam: Present: atraumatic, normocephalic, normal inspection Eye exam: Present: normal appearance, PERRL, EOMI. Absent: scleral icterus, conjunctival injection, periorbital swelling ENT exam: Present: normal exam, normal oropharynx, mucous membranes moist Neck exam: Present: normal inspection, full ROM. Absent: tenderness, meningismus, lymphadenopathy Respiratory exam: Present: normal lung sounds bilaterally. Absent: respiratory distress, wheezes, rales, rhonchi, stridor Cardiovascular Exam: Present: regular rate, normal rhythm, normal heart sounds. Absent: systolic murmur, diastolic murmur, rubs, gallop, clicks GI/Abdominal exam: Present: soft, normal bowel sounds. Absent: distended, tenderness, guarding, rebound, rigid Neurological exam: Present: alert, oriented X3, CN II-XII intact Psychiatric exam: Present: depressed Skin exam: Present: warm, dry, intact, normal color. Absent: rash Course Vital Signs 10/14/19 20:08 Temperature 98.8 F Pulse Rate 79 Respiratory 20 Rate Blood Pressure 106/81 O2 Sat by Pulse 98 Oximetry Medical Decision Making - Medical Decision Making Patient was evaluated by EPS, case discussed with psychiatrist does not recommend inpatient treatment. Patient acting will be contacted and they will find him a bed [place] [facility] at this time. - Lab Data Lab Results 10/14/19 Range/Units 20:26 Urine Opiates Screen Not Detected (NotDetected) Ur Oxycodone Screen Not Detected (NotDetected) Urine Methadone Screen Not Detected (NotDetected) Ur Propoxyphene Screen Not Detected (NotDetected) Ur Barbiturates Screen Not Detected (NotDetected) U Tricyclic Antidepress Detected H (NotDetected) Ur Phencyclidine Scrn Not Detected (NotDetected) Ur Amphetamines Screen Not Detected (NotDetected) U Methamphetamines Scrn Not Detected (NotDetected) U Benzodiazepines Scrn Not Detected (NotDetected) Urine Cocaine Screen Not Detected (NotDetected) U Marijuana (THC) Screen Not Detected (NotDetected) Disposition Clinical Impression: Alcohol abuse, Depression Disposition: HOME SELF-CARE Condition: Stable Instructions (If sedation given, give patient instructions): Depression (ED) Additional Instructions: Please return to the Emergency Department if symptoms worsen or any other concerns. Is patient prescribed a controlled substance at d/c from ED?: No Referrals: Kermit Partida MD [Primary Care Provider] - 1-2 days Time of Disposition: 02:19
[2019-10-14 20:56] LABS: Amphetamine Screen,Urine Not Detected (NotDetected); Barbiturate Screen,Urine Not Detected (NotDetected); Benzodiazepines Screen,Urine Not Detected (NotDetected); Cocaine Screen,Urine Not Detected (NotDetected); Methadone Screen, Urine Not Detected (NotDetected); Opiate Screen,Urine Not Detected (NotDetected); Oxycodone Screen, Urine Not Detected (NotDetected); Phencyclidine Screen,Urine Not Detected (NotDetected); Tricyclic Antidepressant,Urine Detected (NotDetected); Urn Cannabinoid Scrn Not Detected (NotDetected)
[2019-10-15] MEDS ORDERED: ACETAMINOPHEN TAB 325 MG TAB PO STA (00:59)
== END 2019-10-15 03:05 | disposition home or self-care (01) ==
LOC: EC 20:03
DX: F32.9 Major depressive disorder, single episode, unspecified (principal); F10.10 Alcohol abuse, uncomplicated; I10 Essential (primary) hypertension; F41.9 Anxiety disorder, unspecified; F17.200 Nicotine dependence, unspecified, uncomplicated; Z79.899 Other long term (current) drug therapy
CPT/HCPCS: 80306; 82075; 99284

== ENCOUNTER 2019-11-05 22:51 | Emergency (ER) | payer OTHER ==
--- NOTE | 2019-11-05 23:32 | XR ---
EXAMINATION TYPE: XR Hip RT and AP Pelvis DATE OF EXAM: 11/05/2019 COMPARISON: NONE HISTORY: Fall. Pain. TECHNIQUE: 3 views FINDINGS: There is a vertical fracture through the right iliac bone with displacement up to 1 cm. The acetabulum appears intact. Proximal right femur is intact. There is no dislocation. Sacroiliac joint s appear intact. There is intramedullary salma in the left femur. IMPRESSION: There is unusual vertical fracture through the lateral aspect of the right iliac bone wit h mild displacement. Edges are slightly rounded and this may not be an acute fracture. I do not have an old exam to compare.
[2019-11-05] MEDS ORDERED: ONDANSETRON 4 MG/2 ML VIAL IVP STA (23:36)
[2019-11-05] MEDS ORDERED: MORPHINE SULFATE 4 MG/ML SYRINGE IVP STA (23:36)
--- NOTE | 2019-11-05 23:52 | XR ---
EXAMINATION TYPE: XR foot complete LT DATE OF EXAM: 11/05/2019 COMPARISON: NONE HISTORY: Fall. Foot pain TECHNIQUE: 3 views FINDINGS: There is mild hallux valgus. I see no fracture nor dislocation. Joint spaces are normal. Me tatarsals are intact. There are no erosions. IMPRESSION: No acute abnormality of the left foot. No fracture.
--- NOTE | 2019-11-05 23:54 | CT ---
EXAMINATION TYPE: CT pelvis wo con DATE OF EXAM: 11/05/2019 COMPARISON: HISTORY: fall right hip pain CT DLP: 285.7 mGycm Automated exposure control for dose reduction was used. Multiple axial sections were obtained from the iliac crest to the subtrochanteric femurs without cont rast. There is a vertical fracture through the body of the right iliac bone. There is bridging callus forma tion. Fracture line extends to the lateral aspect of the acetabulum. The hip joints are intact. Hip j oint spaces are fairly normal. Proximal femurs are intact. There is intramedullary salma in the left fe mur fixing an old fracture mid shaft of the left femur. Sacroiliac joints appear intact. There is no free fluid in the pelvis. There is no sign of a pelvic mass. There is no inguinal hernia. IMPRESSION: Healing fracture of the right iliac bone with approximate 12 mm of lateral and posterior displacement . No involvement seen of the hip joints.
--- NOTE | 2019-11-05 23:57 | ED ---
Fall HPI - General Source: patient, RN notes reviewed Mode of arrival: ambulatory Limitations: no limitations <Ángel Klein - Last Filed: 11/06/19 01:01> <Max Head - Last Filed: 11/09/19 07:42> - General Chief Complaint: Fall Stated Complaint: Fall Time Seen by Provider: 11/05/19 22:58 - History of Present Illness Initial Comments: This a 54-year-old male presents emergency Department chief complaint of right hip, pelvic pain. Patient states that he slipped and fell on some ice while for clot today. Patient states that it is very difficult and very painful to walk. Patient denies any head injury no loss conscious. He also complains of mild left foot pain. Patient denies having any prior fracture to his right pelvic or hip aspect. (Ángel Klein) - Related Data Home Medications Medication Instructions Recorded Confirmed amLODIPine [Norvasc] 2.5 mg PO DAILY 08/02/18 10/09/19 [place] Carbonate 600 mg PO HS 01/22/19 10/09/19 Mirtazapine 30 mg PO HS 01/25/19 10/09/19 Vivitrol 380mg Er 380 mg IM Q28D 02/25/19 10/09/19 Atorvastatin [Lipitor] 10 mg PO DAILY 10/09/19 10/09/19 Desvenlafaxine Succinate [Pristiq 50 mg PO DAILY 10/09/19 10/09/19 ER] QUEtiapine FUMARATE [SEROquel] 400 mg PO HS 10/09/19 10/09/19 Allergies Allergy/AdvReac Type Severity Reaction Status Date / Time No Known Allergies Allergy Verified 11/05/19 22:56 Review of Systems ROS Other: All systems not noted in ROS Statement are negative. <Ángel Klein - Last Filed: 11/06/19 01:01> ROS Other: All systems not noted in ROS Statement are negative. <Max Head - Last Filed: 11/09/19 07:42> ROS Statement: Those systems with pertinent positive or pertinent negative responses have been documented in the HPI. Past Medical History Past Medical History: Chest Pain / Angina, Hypertension Additional Past Medical History / Comment(s): ETOH History of Any Multi-Drug Resistant Organisms: None Reported Past Surgical History: Orthopedic Surgery Additional Past Surgical History / Comment(s): Right knee surgery and salma placed in left femur, 3 surgeries on his eyes. Past Anesthesia/Blood Transfusion Reactions: No Reported Reaction Past Psychological History: Anxiety, Bipolar, Depression, Schizoaffective Disorder Smoking Status: Current every day smoker Past Alcohol Use History: Abuse, Daily, Heavy Past Drug Use History: None Reported - Past Family History Mother Additional Family Medical History / Comment(s): Mother at age 36 from motor vehicle accident. His father is also past but does not know the cause or his age. Patient has 3 brothers that are apparently without major medical problems. <Ángel Klein - Last Filed: 11/06/19 01:01> General Exam Limitations: no limitations General appearance: alert, in no apparent distress Head exam: Present: atraumatic, normocephalic, normal inspection Eye exam: Present: normal appearance, PERRL, EOMI. Absent: scleral icterus, conjunctival injection, periorbital swelling ENT exam: Present: normal exam, normal oropharynx, mucous membranes moist Neck exam: Present: normal inspection, full ROM. Absent: tenderness, meni ngismus, lymphadenopathy Respiratory exam: Present: normal lung sounds bilaterally. Absent: respiratory distress, wheezes, rales, rhonchi, stridor Cardiovascular Exam: Present: regular rate, normal rhythm, normal heart sounds. Absent: systolic murmur, diastolic murmur, rubs, gallop, clicks GI/Abdominal exam: Present: soft, normal bowel sounds. Absent: distended, tenderness, guarding, rebound, rigid Extremities exam: Present: other (Tenderness the right hip, pelvic region no obvious deformity no ecchymosis. Left foot is mildly tender no obvious deformity neurovascular intact no ankle tenderness) Back exam: Present: full ROM. Absent: tenderness, paraspinal tenderness, vertebral tenderness Neurological exam: Present: alert, oriented X3, CN II-XII intact Skin exam: Present: warm, dry, intact, normal color. Absent: rash <Ángel Klein - Last Filed: 11/06/19 01:01> Course Vital Signs 11/05/19 11/06/19 22:54 01:26 Temperature 97.7 F 98.0 F Pulse Rate 108 H 95 Respiratory 20 18 Rate Blood Pressure 130/71 135/89 O2 Sat by Pulse 98 98 Oximetry Medical Decision Making - Lab Data Result diagrams: 11/06/19 00:12 11/06/19 00:12 <Ángel Klein - Last Filed: 11/06/19 01:01> - Lab Data Result diagrams: 11/06/19 00:12 11/06/19 00:12 <Max Head - Last Filed: 11/09/19 07:42> - Medical Decision Making Initial x-ray was obtained which shows pelvic fracture on the right side. At this point further imaging was ordered including CT CT shows callus formation and indicates that this is a remote injury and not in acute injury today. Patient's labwork is essentially unremarkable. Patient has no bowel, bladder incontinence or retention he is able to ambulate. Patient's case discussed with on-call orthopedics Dr. Mark who states the patient may be discharged if he is stable to follow up in clinic tomorrow and return for any worsening symptoms. (Ángel Klein) I saw this patient in conjunction with the physician fiscal assistant. I performed independent history and physical exam. Agree with case management. I did discuss the case with Dr. Mark, who given that the injury is 1-month-old will see the patient in clinic. Return parameters discussed (Max Head) - Lab Data Lab Results 11/06/19 11/06/19 11/06/19 Range/Units 00:09 00:12 00:12 WBC 14.0 H (3.8-10.6) k/uL RBC 4.80 (4.30-5.90) m/uL Hgb 14.0 (13.0-17.5) gm/dL Hct 43.5 (39.0-53.0) % MCV 90.7 (80.0-100.0) fL MCH 29.3 (25.0-35.0) pg MCHC 32.3 (31.0-37.0) g/dL RDW 14.5 (11.5-15.5) % Plt Count 454 H (150-450) k/uL Neutrophils % 66 % Lymphocytes % 22 % Monocytes % 4 % Eosinophils % 6 % Basophils % 1 % Neutrophils # 9.3 H (1.3-7.7) k/uL Lymphocytes # 3.1 (1.0-4.8) k/uL Monocytes # 0.6 (0-1.0) k/uL Eosinophils # 0.8 H (0-0.7) k/uL Basophils # 0.2 (0-0.2) k/uL PT (9.0-12.0) sec INR (<1.2) APTT (22.0-30.0) sec Sodium 139 (137-145) mmol/L Potassium 3.8 (3.5-5.1) mmol/L Chloride 103 (98-107) mmol/L Carbon Dioxide 24 (22-30) mmol/L Anion Gap 12 mmol/L BUN 8 L (9-20) mg/dL Creatinine 0.78 (0.66-1.25) mg/dL Est GFR (CKD-EPI)AfAm >90 (>60 ml/min/1.73 sqM) Est GFR (CKD-EPI)NonAf >90 (>60 ml/min/1.73 sqM) Glucose 86 (74-99) mg/dL Calcium 10.0 (8.4-10.2) mg/dL Total Bilirubin 0.5 (0.2-1.3) mg/dL AST 39 (17-59) U/L ALT 19 (4-49) U/L Alkaline Phosphatase 297 H (38-126) U/L Total Protein 8.6 H (6.3-8.2) g/dL Albumin 5.1 H (3.5-5.0) g/dL Urine Color Urine Appearance (Clear) Urine pH (5.0-8.0) Ur Specific [place] (1.001-1.035) Urine Protein (Negative) Urine Glucose (UA) (Negative) Urine Ketones (Negative) Urine Blood (Negative) Urine Nitrite (Negative) Urine Bilirubin (Negative) Urine Urobilinogen (<2.0) mg/dL Ur Leukocyte Esterase (Negative) Blood Type Blood Type Confirm A Positive Blood Type Recheck Bld Type Recheck Status Antibody Screen Spec Expiration Date 11/06/19 11/06/19 11/06/19 Range/Units 00:12 00:12 01:25 WBC (3.8-10.6) k/uL RBC (4.30-5.90) m/uL Hgb (13.0-17.5) gm/dL Hct (39.0-53.0) % MCV (80.0-100.0) fL MCH (25.0-35.0) pg MCHC (31.0-37.0) g/dL RDW (11.5-15.5) % Plt Count (150-450) k/uL Neutrophils % % Lymphocytes % % Monocytes % % Eosinophils % % Basophils % % Neutrophils # (1.3-7.7) k/uL Lymphocytes # (1.0-4.8) k/uL Monocytes # (0-1.0) k/uL Eosinophils # (0-0.7) k/uL Basophils # (0-0.2) k/uL PT 9.5 (9.0-12.0) sec INR 0.9 (<1.2) APTT 26.4 (22.0-30.0) sec Sodium (137-145) mmol/L Potassium (3.5-5.1) mmol/L Chloride (98-107) mmol/L Carbon Dioxide (22-30) mmol/L Anion Gap mmol/L BUN (9-20) mg/dL Creatinine (0.66-1.25) mg/dL Est GFR (CKD-EPI)AfAm (>60 ml/min/1.73 sqM) Est GFR (CKD-EPI)NonAf (>60 ml/min/1.73 sqM) Glucose (74-99) mg/dL Calcium (8.4-10.2) mg/dL Total Bilirubin (0.2-1.3) mg/dL AST (17-59) U/L ALT (4-49) U/L Alkaline Phosphatase (38-126) U/L Total Protein (6.3-8.2) g/dL Albumin (3.5-5.0) g/dL Urine Color Yellow Urine Appearance Clear (Clear) Urine pH 6.0 (5.0-8.0) Ur Specific [place] 1.011 (1.001-1.035) Urine Protein Negative (Negative) Urine Glucose (UA) Negative (Negative) Urine Ketones Negative (Negative) Urine Blood Negative (Negative) Urine Nitrite Negative (Negative) Urine Bilirubin Negative (Negative) Urine Urobilinogen <2.0 (<2.0) mg/dL Ur Leukocyte Esterase Negative (Negative) Blood Type A Positive Blood Type Confirm Blood Type Recheck No Previous Record Bld Type Recheck Status CABO Indicated Antibody Screen NEGATIVE Spec Expiration Date 11/09/2019 - 2311 Disposition Is patient prescribed a controlled substance at d/c from ED?: No Time of Disposition: 01:03 <Ángel Klein - Last Filed: 11/06/19 01:01> <Max Head - Last Filed: 11/09/19 07:42> Clinical Impression: Pelvic fracture Disposition: HOME SELF-CARE Condition: Stable Instructions (If sedation given, give patient instructions): Pelvic Fracture (ED) Additional Instructions: Please return to the Emergency Department if symptoms worsen or any other concerns. Referrals: Kermit Partida MD [Primary Care Provider] - 1-2 days Murali Mark MD [STAFF PHYSICIAN] - 1-2 days
[2019-11-06 00:34] LABS: Basophils # (A) 0.2 k/uL (0-0.2); Basophils % (A) 1 %; Eosinophils # (A) 0.8 k/uL (0-0.7); Eosinophils % (A) 6 %; HCT 43.5 % (39.0-53.0); Lymphocytes # (A) 3.1 k/uL (1.0-4.8); Lymphocytes % (A) 22 %; MCH 29.3 pg (25.0-35.0); MCHC 32.3 g/dL (31.0-37.0); MCV 90.7 fL (80.0-100.0); Mean Platelet Volume 7.6; Monocytes # (A) 0.6 k/uL (0-1.0); Monocytes % (A) 4 %; Neutrophils # (A) 9.3 k/uL (1.3-7.7); Neutrophils % (A) 66 %; Platelet Count 454 k/uL (150-450); RDW 14.5 % (11.5-15.5)
[2019-11-06 00:49] LABS: INR 0.9 (<1.2); Partial Thromboplastin Time 26.4 sec (22.0-30.0); Prothrombin Time 9.5 sec (9.0-12.0)
[2019-11-06 00:52] LABS: ALT 19 U/L (4-49); AST 39 U/L (17-59); African American GFR (CKD) >90 (>60 ml/min/1.73 sqM); Albumin 5.1 g/dL (3.5-5.0); Alkaline Phosphatase 297 U/L (38-126); Anion Gap 12 mmol/L; Blood Urea Nitrogen 8 mg/dL (9-20); Carbon Dioxide 24 mmol/L (22-30); Chloride 103 mmol/L (98-107); Glucose 86 mg/dL (74-99); Non-African American GFR(CKD) >90 (>60 ml/min/1.73 sqM); Potassium 3.8 mmol/L (3.5-5.1); Sodium 139 mmol/L (137-145); Total Bilirubin 0.5 mg/dL (0.2-1.3); Total Protein 8.6 g/dL (6.3-8.2)
[2019-11-06] MEDS ORDERED: ACET/COD 300 MG/30 MG STARTER PACK 6 TAB BTL PO STA (01:03)
[2019-11-06 01:28] VITALS: BP 135/89; PULSE 95; RESP 18; TEMP 98
[2019-11-06 01:37] LABS: Appearance,Urine Clear (Clear); Bilirubin,Urine Negative (Negative); Blood,Urine Negative (Negative); Color,Urine Yellow; Glucose,Urine (UA) Negative (Negative); Ketones,Urine Negative (Negative); Leukocyte Esterase,Urine Negative (Negative); Nitrite,Urine Negative (Negative); Protein,Urine Negative (Negative); Specific Gravity,Urine 1.011 (1.001-1.035); Urobilinogen,Urine <2.0 mg/dL (<2.0)
== END 2019-11-06 01:31 | disposition home or self-care (01) ==
LOC: EC 22:51
DX: S32.301A Unspecified fracture of right ilium, initial encounter for closed fracture (principal); I10 Essential (primary) hypertension; F41.9 Anxiety disorder, unspecified; F31.9 Bipolar disorder, unspecified; F17.200 Nicotine dependence, unspecified, uncomplicated; Z79.899 Other long term (current) drug therapy; W00.9XXA Unspecified fall due to ice and snow, initial encounter
CPT/HCPCS: 36415; 86900; 86901; 80053; 85025; 85610; 85730; 86850; 81003; 73502; 73630; 72192; 99284; 96374; 96375; J2270; J2405

== ENCOUNTER 2019-11-14 14:58 | Emergency (ER) | payer OTHER ==
[2019-11-14 15:17] VITALS: BP 146/91; PULSE 91; TEMP 98.2
--- NOTE | 2019-11-14 15:36 | ED ---
General Adult HPI - General Chief complaint: Psychiatric Symptoms Stated complaint: Mental Health Time Seen by Provider: 11/14/19 15:20 Source: patient, RN notes reviewed Mode of arrival: ambulatory Limitations: no limitations - History of Present Illness Initial comments: Patient is a pleasant 4-year-old male presenting to the emergency Department with depression and suicidal thoughts. Patient has plan of jumping in front of a car. Patient states he does have history of depression. Patient has a history of alcohol use however has been sober for the past month or 2. Patient occasionally has recently seen hallucinations of himself holding a book however when he looks back it disappears. Patient states he did break his pelvis a couple weeks ago and has followed up with orthopedics since then, no new symptoms regarding that. - Related Data Home Medications Medication Instructions Recorded Confirmed amLODIPine [Norvasc] 2.5 mg PO DAILY 08/02/18 10/09/19 [place] Carbonate 600 mg PO HS 01/22/19 10/09/19 Mirtazapine 30 mg PO HS 01/25/19 10/09/19 Vivitrol 380mg Er 380 mg IM Q28D 02/25/19 10/09/19 Atorvastatin [Lipitor] 10 mg PO DAILY 10/09/19 10/09/19 Desvenlafaxine Succinate [Pristiq 50 mg PO DAILY 10/09/19 10/09/19 ER] QUEtiapine FUMARATE [SEROquel] 400 mg PO HS 10/09/19 10/09/19 Allergies Allergy/AdvReac Type Severity Reaction Status Date / Time No Known Allergies Allergy Verified 11/14/19 15:18 Review of Systems ROS Statement: Those systems with pertinent positive or pertinent negative responses have been documented in the HPI. ROS Other: All systems not noted in ROS Statement are negative. Constitutional: Denies: fever Eyes: Denies: eye pain ENT: Denies: ear pain Respiratory: Denies: cough Cardiovascular: Denies: chest pain Endocrine: Denies: fatigue Gastrointestinal: Denies: abdominal pain Genitourinary: Denies: dysuria Musculoskeletal: Denies: back pain Skin: Denies: rash Past Medical History Past Medical History: Chest Pain / Angina, Hypertension Additional Past Medical History / Comment(s): ETOH History of Any Multi-Drug Resistant Organisms: None Reported Past Surgical History: Orthopedic Surgery Additional Past Surgical History / Comment(s): Right knee surgery and salma placed in left femur, 3 surgeries on his eyes. Past Anesthesia/Blood Transfusion Reactions: No Reported Reaction Past Psychological History: Anxiety, Bipolar, Depression, Schizoaffective Disorder Smoking Status: Current every day smoker Past Alcohol Use History: Abuse, Daily, Heavy Past Drug Use History: None Reported - Past Family History Mother Additional Family Medical History / Comment(s): Mother at age 36 from motor vehicle accident. His father is also past but does not know the cause or his age. Patient has 3 brothers that are apparently without major medical problems. General Exam Limitations: no limitations General appearance: alert, in no apparent distress Head exam: Present: normocephalic Eye exam: Present: normal appearance Neck exam: Present: normal inspection Respiratory exam: Present: normal lung sounds bilaterally Cardiovascular Exam: Present: regular rate, normal rhythm GI/Abdominal exam: Present: soft. Absent: tenderness Extremities exam: Present: normal inspection Neurological exam: Present: alert Psychiatric exam: Present: depressed Skin exam: Present: normal color Course Vital Signs 11/14/19 15:14 Temperature 98.2 F Pulse Rate 91 Respiratory 16 Rate Blood Pressure 146/91 O2 Sat by Pulse 99 Oximetry Medical Decision Making - Medical Decision Making Patient seen by mental health services with plan for discharge and will assist patient with other living options that he appears to have any problem with. Patient is agreeable with plan. Disposition Clinical Impression: Depression Disposition: HOME SELF-CARE Condition: Stable Instructions (If sedation given, give patient instructions): Depression (ED) Additional Instructions: Please follow-up with primary care physician in the next couple days for recheck. Please follow-up with mental health services as directed. Return for thoughts of self-harm, worsening symptoms or other concerns. Is patient prescribed a controlled substance at d/c from ED?: No Referrals: Kermit Partida MD [Primary Care Provider] - 1-2 days Time of Disposition: 16:44
[2019-11-14 17:00] VITALS: RESP 17
== END 2019-11-14 17:00 | disposition home or self-care (01) ==
LOC: EC 14:58
DX: F32.9 Major depressive disorder, single episode, unspecified (principal); I10 Essential (primary) hypertension; F41.9 Anxiety disorder, unspecified; F17.200 Nicotine dependence, unspecified, uncomplicated; Z79.899 Other long term (current) drug therapy
CPT/HCPCS: 82075; 99285

== ENCOUNTER 2019-11-19 19:17 | Emergency (ER) | payer OTHER ==
[2019-11-19] MEDS ORDERED: IBUPROFEN 600 MG TAB PO STA (20:48)
--- NOTE | 2019-11-19 21:23 | XR ---
EXAMINATION TYPE: XR Hip RT and AP Pelvis DATE OF EXAM: 11/19/2019 COMPARISON: NONE HISTORY: Hip pain TECHNIQUE: 3 views FINDINGS: Pelvic ring is intact. There is old ununited large fracture of the lateral aspect of the ri ght iliac bone. No change in position. Intramedullary salma is seen in the left femur. Sacroiliac joint s are intact. Proximal femurs are intact. Hip joint spaces are fairly normal. 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 No acute fracture.
--- NOTE | 2019-11-19 22:18 | ED ---
Fall HPI - General Chief Complaint: Fall Stated Complaint: ETOH, Mental Health Time Seen by Provider: 11/19/19 19:42 Source: patient Mode of arrival: EMS - History of Present Illness Initial Comments: 54-year-old male patient presents to the emergency department today for evaluation of right hip pain and suicidal ideation. Patient states he did have a fall couple months ago and broke his pelvis. Patient states he fell again 2 days ago injuring the same region. Patient states that having a lot of pain over the right hip. Denies any radiation of the pain down his leg or up his back. Denies any hematuria. Denies hitting his head or losing consciousness with this fall. Patient is also reporting suicidal ideation. States this plan as a temperature car. Patient does admit to drinking alcohol today. Denies any other injuries or concerns. Patient denies any headache, chest pain, shortness of breath, dizziness, weakness, abdominal pain, nausea, vomiting, or difficul ties with bowel movements or urination. - Related Data Home Medications Medication Instructions Recorded Confirmed amLODIPine [Norvasc] 2.5 mg PO DAILY 08/02/18 10/09/19 [place] Carbonate 600 mg PO HS 01/22/19 10/09/19 Mirtazapine 30 mg PO HS 01/25/19 10/09/19 Vivitrol 380mg Er 380 mg IM Q28D 02/25/19 10/09/19 Atorvastatin [Lipitor] 10 mg PO DAILY 10/09/19 10/09/19 Desvenlafaxine Succinate [Pristiq 50 mg PO DAILY 10/09/19 10/09/19 ER] QUEtiapine FUMARATE [SEROquel] 400 mg PO HS 10/09/19 10/09/19 Allergies Allergy/AdvReac Type Severity Reaction Status Date / Time No Known Allergies Allergy Verified 11/14/19 15:18 Review of Systems ROS Statement: Those systems with pertinent positive or pertinent negative responses have been documented in the HPI. ROS Other: All systems not noted in ROS Statement are negative. Past Medical History Past Medical History: Chest Pain / Angina, Hypertension Additional Past Medical History / Comment(s): ETOH History of Any Multi-Drug Resistant Organisms: None Reported Past Surgical History: Orthopedic Surgery Additional Past Surgical History / Comment(s): Right knee surgery and salma placed in left femur, 3 surgeries on his eyes. Past Anesthesia/Blood Transfusion Reactions: No Reported Reaction Past Psychological History: Anxiety, Bipolar, Depression, Schizoaffective Disorder Smoking Status: Current every day smoker Past Alcohol Use History: Abuse, Daily, Heavy Past Drug Use History: None Reported - Past Family History Mother Additional Family Medical History / Comment(s): Mother at age 36 from motor vehicle accident. His father is also past but does not know the cause or his age. Patient has 3 brothers that are apparently without major medical problems. General Exam Limitations: no limitations General appearance: alert, in no apparent distress, other (Well-developed, well- nourished adult male patient in no acute distress. Vital signs upon presentation are temperature 98.3F, pulse 76, respirations 20, blood pressure 147/89.) Eye exam: Present: normal appearance, PERRL, EOMI. Absent: scleral icterus, conjunctival injection, periorbital swelling ENT exam: Present: normal exam, normal oropharynx, mucous membranes moist Respiratory exam: Present: normal lung sounds bilaterally. Absent: respiratory distress, wheezes, rales, rhonchi, stridor Cardiovascular Exam: Present: regular rate, normal rhythm, normal heart sounds. Absent: systolic murmur, diastolic murmur, rubs, gallop, clicks GI/Abdominal exam: Present: soft, normal bowel sounds. Absent: distended, tenderness, guarding, rebound, rigid Extremities exam: Present: normal inspection, full ROM, tenderness (Right lateral hip tenderness), normal capillary refill, other (Skin to the right leg is pink, warm, dry. Cap refills less than 3 seconds. Pedal pulses 2+ and equal bilaterally.). Absent: pedal edema, joint swelling, calf tenderness Neurological exam: Present: alert, oriented X3, CN II-XII intact Psychiatric exam: Present: normal affect, normal mood Skin exam: Present: warm, dry, intact, normal color. Absent: rash Course Vital Signs 11/19/19 11/20/19 20:14 00:32 Temperature 98.3 F 98.5 F Pulse Rate 76 112 H Respiratory 20 18 Rate Blood Pressure 147/89 129/78 O2 Sat by Pulse 97 Oximetry Medical Decision Making - Medical Decision Making 54-year-old male patient presents to the emergency department today for evaluation of right hip pain and suicidal ideation. Patient is intoxicated upon arrival. Physical examination reveals normal appearing skin over the right hip. Patient does have a known pelvic fracture. He did experiencing new falls we did repeat the x-ray, showed no changes. Patient was evaluated by emergency psychiatric services after becoming sober. They were able to develop a safety plan he will be discharged home to follow-up with his primary care physician for recheck in 1-2 days. He verbalizes understanding and agrees with this plan. - Lab Data Lab Results 11/19/19 Range/Units 21:20 Urine Color Light Yellow Urine Appearance Clear (Clear) Urine pH 6.5 (5.0-8.0) Ur Specific [place] 1.004 (1.001-1.035) Urine Protein Negative (Negative) Urine Glucose (UA) Negative (Negative) Urine Ketones Negative (Negative) Urine Blood Trace H (Negative) Urine Nitrite Negative (Negative) Urine Bilirubin Negative (Negative) Urine Urobilinogen <2.0 (<2.0) mg/dL Ur Leukocyte Esterase Negative (Negative) Urine RBC 2 (0-5) /hpf Urine WBC 1 (0-5) /hpf Disposition Clinical Impression: Right hip pain, Suicidal ideation Disposition: HOME SELF-CARE Condition: Good Instructions (If sedation given, give patient instructions): Pelvic Fracture (ED), Suicide Prevention (ED) Additional Instructions: Take Tylenol Motrin for pain. Follow up with her primary care physician for recheck in 1-2 days. Return to the emergency department immediately for any new, worsening, or concerning symptoms. Is patient prescribed a controlled substance at d/c from ED?: No Referrals: Kermit Partida MD [Primary Care Provider] - 1-2 days Time of Disposition: 01:43
[2019-11-19 22:30] LABS: Appearance,Urine Clear (Clear); Bilirubin,Urine Negative (Negative); Blood,Urine Trace (Negative); Color,Urine Light Yellow; Glucose,Urine (UA) Negative (Negative); Ketones,Urine Negative (Negative); Leukocyte Esterase,Urine Negative (Negative); Nitrite,Urine Negative (Negative); PH, Urine 6.5 (5.0-8.0); Protein,Urine Negative (Negative); RBC,Urine 2 /hpf (0-5); Specific Gravity,Urine 1.004 (1.001-1.035); Urobilinogen,Urine <2.0 mg/dL (<2.0); WBC,Urine 1 /hpf (0-5)
[2019-11-20 00:36] VITALS: PULSE 112; RESP 18
[2019-11-20] MEDS ORDERED: ONDANSETRON ODT 4 MG TAB PO STA (00:37)
[2019-11-20 01:48] VITALS: BP 129/79; TEMP 99.4
== END 2019-11-20 01:59 | disposition home or self-care (01) ==
LOC: EC 19:17
DX: R45.851 Suicidal ideations (principal); F10.129 Alcohol abuse with intoxication, unspecified; S32.9XXD Fracture of unspecified parts of lumbosacral spine and pelvis, subsequent encounter for fracture with routine healing; F25.9 Schizoaffective disorder, unspecified; F41.9 Anxiety disorder, unspecified; F31.9 Bipolar disorder, unspecified; I10 Essential (primary) hypertension; I25.2 Old myocardial infarction; F17.200 Nicotine dependence, unspecified, uncomplicated; Z79.899 Other long term (current) drug therapy; W19.XXXA Unspecified fall, initial encounter
CPT/HCPCS: 73502; 81001; 82075; 99285

== ENCOUNTER 2020-01-02 00:21 | Emergency (ER) | payer OTHER ==
[2020-01-02 00:29] VITALS: RESP 16
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
[2020-01-02] MEDS ORDERED: SODIUM CHLORIDE 0.9% 1,000 ML IV STA (00:56)
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
[2020-01-02 01:26] LABS: Basophils % (A) 0 %; Eosinophils # (A) 0.2 k/uL (0-0.7); Eosinophils % (A) 1 %; HCT 44.5 % (39.0-53.0); HGB 14.3 gm/dL (13.0-17.5); Lymphocytes # (A) 2.2 k/uL (1.0-4.8); Lymphocytes % (A) 11 %; MCH 29.1 pg (25.0-35.0); MCHC 32.2 g/dL (31.0-37.0); MCV 90.3 fL (80.0-100.0); Monocytes % (A) 5 %; Neutrophils # (A) 16.6 k/uL (1.3-7.7); Neutrophils % (A) 82 %; Platelet Count 355 k/uL (150-450); RBC 4.92 m/uL (4.30-5.90); RDW 13.9 % (11.5-15.5); WBC 20.3 k/uL (3.8-10.6)
[2020-01-02 01:31] LABS: ALT 13 U/L (4-49); AST 36 U/L (17-59); Acetaminophen <10.0 ug/mL; African American GFR (CKD) >90 (>60 ml/min/1.73 sqM); Albumin 4.8 g/dL (3.5-5.0); Alkaline Phosphatase 154 U/L (38-126); Anion Gap 16 mmol/L; Blood Urea Nitrogen 7 mg/dL (9-20); Calcium 8.9 mg/dL (8.4-10.2); Carbon Dioxide 19 mmol/L (22-30); Chloride 104 mmol/L (98-107); Glucose 106 mg/dL (74-99); Magnesium 2.1 mg/dL (1.6-2.3); Non-African American GFR(CKD) >90 (>60 ml/min/1.73 sqM); Salicylate <1.0 mg/dL; Sodium 139 mmol/L (137-145); Total Bilirubin 0.5 mg/dL (0.2-1.3); Total Protein 8.1 g/dL (6.3-8.2)
[2020-01-02 01:35] LABS: Alcohol 185 mg/dL; Potassium 4.7 mmol/L (3.5-5.1)
[2020-01-02 01:44] LABS: INR 0.9 (<1.2)
[2020-01-02 01:45] LABS: Prothrombin Time 9.6 sec (9.0-12.0)
[2020-01-02 01:53] LABS: Partial Thromboplastin Time 21.2 sec (22.0-30.0)
[2020-01-02 03:03] LABS: Amphetamine Screen,Urine Not Detected (NotDetected); Barbiturate Screen,Urine Not Detected (NotDetected); Benzodiazepines Screen,Urine Not Detected (NotDetected); Cocaine Screen,Urine Not Detected (NotDetected); Methadone Screen, Urine Not Detected (NotDetected); Opiate Screen,Urine Not Detected (NotDetected); Oxycodone Screen, Urine Not Detected (NotDetected); Phencyclidine Screen,Urine Not Detected (NotDetected); Tricyclic Antidepressant,Urine Detected (NotDetected); Urn Cannabinoid Scrn Not Detected (NotDetected)
[2020-01-02 11:04] VITALS: BP 138/70; PULSE 78; TEMP 98.7
== END 2020-01-02 11:03 | disposition home or self-care (01) ==
LOC: EC 00:21
DX: F10.10 Alcohol abuse, uncomplicated (principal); F32.9 Major depressive disorder, single episode, unspecified; I10 Essential (primary) hypertension; F41.9 Anxiety disorder, unspecified; F25.9 Schizoaffective disorder, unspecified; F17.200 Nicotine dependence, unspecified, uncomplicated; Z79.899 Other long term (current) drug therapy
CPT/HCPCS: 36415; 93005; 80053; 83735; 84484; 85025; 85610; 85730; 80306; 83520; 71046; 99285; 96360; 96361 ×10; G0480 ×2; 80320; 80329

== ENCOUNTER 2020-01-02 20:44 | Emergency (ER) | payer OTHER ==
--- NOTE | 2020-01-02 21:08 | ED ---
Chest Pain HPI - General Stated Complaint: Chest Pain Time Seen by Provider: 01/02/20 21:01 Source: RN notes reviewed, old records reviewed Limitations: no limitations - History of Present Illness Initial Comments: This is a 54-year-old male who presents with mild alcohol intoxication coming in that he is homeless, sleeping unassigned is a place to stay. Patient does drink alcohol no no cough was also here tonight. Per [facility] patient is given attempt was supposed to be sleeping behind [employer]. Patient does not appear like a proposal and has recovered to ER for evaluation. Patient does admit alcohol use today. States he is significantly depressed but is living situation although from talking to [facility] as well patient has been not allowed 11 any other shelters. Patient has no complaints currently MD Complaint: other (Patient has no chest pain, depressed with homelessness) -: week(s) Onset: other (No pain) Pain Location: other ((No pain) Pain Radiation: other (No pain) Quality: other (No pain) Improves With: other (No pain) Treatments Prior to Arrival: none - Related Data Home Medications Medication Instructions Recorded Confirmed [place] Carbonate 600 mg PO HS 01/22/19 01/02/20 Mirtazapine 30 mg PO HS 01/25/19 01/02/20 Atorvastatin [Lipitor] 10 mg PO DAILY 10/09/19 01/02/20 Desvenlafaxine Succinate [Pristiq 50 mg PO DAILY 10/09/19 01/02/20 ER] QUEtiapine FUMARATE [SEROquel] 400 mg PO HS 10/09/19 01/02/20 amLODIPine [Norvasc] 5 mg PO DAILY 01/02/20 01/02/20 Allergies Allergy/AdvReac Type Severity Reaction Status Date / Time No Known Allergies Allergy Verified 01/02/20 21:53 Review of Systems ROS Statement: Those systems with pertinent positive or pertinent negative responses have been documented in the HPI. ROS Other: All systems not noted in ROS Statement are negative. EKG Findings - EKG Comments: EKG Findings:: EKG shows sinus rhythm of 87, MN 164, QRS 90, QTc 466 Past Medical History Past Medical History: Chest Pain / Angina, Hypertension Additional Past Medical History / Comment(s): ETOH History of Any Multi-Drug Resistant Organisms: None Reported Past Surgical History: Orthopedic Surgery Additional Past Surgical History / Comment(s): Right knee surgery and salma placed in left femur, 3 surgeries on his eyes. Past Anesthesia/Blood Transfusion Reactions: No Reported Reaction Past Psychological History: Anxiety, Bipolar, Depression, Schizoaffective Disorder Smoking Status: Current every day smoker Past Alcohol Use History: Abuse, Daily, Heavy Past Drug Use History: None Reported - Past Family History Mother Additional Family Medical History / Comment(s): Mother at age 36 from motor vehicle accident. His father is also past but does not know the cause or his age. Patient has 3 brothers that are apparently without major medical problems. General Exam General appearance: alert, in no apparent distress Head exam: Present: atraumatic, normocephalic, normal inspection Eye exam: Present: normal appearance, PERRL, EOMI. Absent: scleral icterus, conjunctival injection, periorbital swelling ENT exam: Present: normal exam, mucous membranes moist Neck exam: Present: normal inspection. Absent: tenderness, meningismus, lymphadenopathy Respiratory exam: Present: normal lung sounds bilaterally. Absent: respiratory distress, wheezes, rales, rhonchi, stridor Cardiovascular Exam: Present: regular rate, normal rhythm, normal heart sounds. Absent: systolic murmur, diastolic murmur, rubs, gallop, clicks GI/Abdominal exam: Present: soft, normal bowel sounds. Absent: distended, tenderness, guarding, rebound, rigid Extremities exam: Present: normal inspection, full ROM, normal capillary refill. Absent: tenderness, pedal edema, joint swelling, calf tenderness Back exam: Present: normal inspection Neurological exam: Present: alert, oriented X3, CN II-XII intact Psychiatric exam: Present: normal affect, normal mood Skin exam: Present: warm, dry, intact, normal color. 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 Patient has no complaints currently will be discharged home Disposition Clinical Impression: Alcohol abuse, Homelessness, Alcohol dependence, continuous Disposition: HOME SELF-CARE Condition: Fair Is patient prescribed a controlled substance at d/c from ED?: No Referrals: Kermit Partida MD [Primary Care Provider] - 1-2 days
[2020-01-02 21:15] VITALS: RESP 18; TEMP 98.5
[2020-01-03 03:41] VITALS: BP 130/81; PULSE 100
== END 2020-01-03 03:45 | disposition home or self-care (01) ==
LOC: EC 20:44
DX: F10.229 Alcohol dependence with intoxication, unspecified (principal); R07.9 Chest pain, unspecified; F31.9 Bipolar disorder, unspecified; F25.9 Schizoaffective disorder, unspecified; F41.9 Anxiety disorder, unspecified; I10 Essential (primary) hypertension; F17.200 Nicotine dependence, unspecified, uncomplicated; Z59.0 Homelessness; Z79.899 Other long term (current) drug therapy
CPT/HCPCS: 82075; 99285

== ENCOUNTER 2020-01-05 10:56 | Emergency (ER) | payer OTHER ==
[2020-01-05 11:04] VITALS: TEMP 97.6
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
[2020-01-05 12:33] VITALS: RESP 20
[2020-01-05 14:41] VITALS: BP 138/68; PULSE 71
[2020-01-05 14:53] LABS: Amphetamine Screen,Urine Not Detected (NotDetected); Barbiturate Screen,Urine Not Detected (NotDetected); Benzodiazepines Screen,Urine Not Detected (NotDetected); Cocaine Screen,Urine Not Detected (NotDetected); Methadone Screen, Urine Not Detected (NotDetected); Opiate Screen,Urine Not Detected (NotDetected); Oxycodone Screen, Urine Not Detected (NotDetected); Phencyclidine Screen,Urine Not Detected (NotDetected); Tricyclic Antidepressant,Urine Detected (NotDetected); Urn Cannabinoid Scrn Not Detected (NotDetected)
== END 2020-01-05 14:43 | disposition home or self-care (01) ==
LOC: EC 10:56
DX: F31.30 Bipolar disorder, current episode depressed, mild or moderate severity, unspecified (principal); F10.10 Alcohol abuse, uncomplicated; R45.851 Suicidal ideations; I10 Essential (primary) hypertension; F41.9 Anxiety disorder, unspecified; F25.9 Schizoaffective disorder, unspecified; F17.200 Nicotine dependence, unspecified, uncomplicated; Z79.899 Other long term (current) drug therapy; Z59.0 Homelessness
CPT/HCPCS: 80306; 82075; 99285

== ENCOUNTER 2020-01-16 19:49 | Emergency (ER) | payer OTHER ==
[2020-01-16 20:08] VITALS: RESP 16
--- NOTE | 2020-01-16 20:13 | ED ---
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) Previous Visits for Alcohol Intoxication?: Yes Recent Trauma: Yes Associated Symptoms: denies other symptoms Treatments Prior to Arrival: none Chronic Alcohol Use: No <Anam Pinzon - Last Filed: 01/16/20 22:16> <Max Head - Last Filed: 01/17/20 05:03> - General Chief Complaint: Alcohol Stated Complaint: ETOH Time Seen by Provider: 01/16/20 19:52 - History of Present Illness Initial Comments: This is a 54-year-old male DF for evaluation patient Dese for evaluation of alcohol intoxication in by EMS with PDD, patient is significantly intoxicated, (Anam Pinzon) - Related Data Home Medications Medication Instructions Recorded Confirmed [place] Carbonate 600 mg PO HS 01/22/19 01/05/20 Mirtazapine 30 mg PO HS 01/25/19 01/05/20 Atorvastatin [Lipitor] 10 mg PO DAILY 10/09/19 01/05/20 Desvenlafaxine Succinate [Pristiq 50 mg PO DAILY 10/09/19 01/05/20 ER] QUEtiapine FUMARATE [SEROquel] 400 mg PO HS 10/09/19 01/05/20 amLODIPine [Norvasc] 5 mg PO DAILY 01/02/20 01/05/20 Allergies Allergy/AdvReac Type Severity Reaction Status Date / Time No Known Allergies Allergy Verified 01/05/20 11:00 Review of Systems ROS Other: All systems not noted in ROS Statement are negative. <Anam Pinzon - Last Filed: 01/16/20 22:16> ROS Other: All systems not noted in ROS Statement are negative. <Max Head - Last Filed: 01/17/20 05:03> ROS Statement: Those systems with pertinent positive or pertinent negative responses have been documented in the HPI. Past Medical History Past Medical History: Chest Pain / Angina, Hypertension Additional Past Medical History / Comment(s): ETOH History of Any Multi-Drug Resistant Organisms: None Reported Past Surgical History: Orthopedic Surgery Additional Past Surgical History / Comment(s): Right knee surgery and salma placed in left femur, 3 surgeries on his eyes. Past Anesthesia/Blood Transfusion Reactions: No Reported Reaction Past Psychological History: Anxiety, Bipolar, Depression, Schizoaffective Disorder Smoking Status: Current every day smoker Past Alcohol Use History: Abuse, Daily, Heavy Past Drug Use History: None Reported - Past Family History Mother Additional Family Medical History / Comment(s): Mother at age 36 from motor vehicle accident. His father is also past but does not know the cause or his age. Patient has 3 brothers that are apparently without major medical problems. <Anam Pinzon - Last Filed: 01/16/20 22:16> General Exam Limitations: altered mental status, physical limitation General appearance: alert, in no apparent distress Head exam: Present: atraumatic, normocephalic, normal inspection Eye exam: Present: normal appearance, PERRL, EOMI. Absent: scleral icterus, conjunctival injection, periorbital swelling ENT exam: Present: normal exam, mucous membranes moist Neck exam: Present: normal inspection. Absent: tenderness, meningismus, lymphadenopathy Respiratory exam: Present: normal lung sounds bilaterally. Absent: respiratory distress, wheezes, rales, rhonchi, stridor Cardiovascular Exam: Present: regular rate, normal rhythm, normal heart sounds. Absent: systolic murmur, diastolic murmur, rubs, gallop, clicks GI/Abdominal exam: Present: soft, normal bowel sounds. Absent: distended, tenderness, guarding, rebound, rigid Extremities exam: Present: normal inspection, full ROM, normal capillary refill. Absent: tenderness, pedal edema, joint swelling, calf tenderness Back exam: Present: normal inspection Neurological exam: Present: alert, oriented X3, CN II-XII intact Psychiatric exam: Present: normal affect, normal mood Skin exam: Present: warm, dry, intact, normal color. Absent: rash <Anam Pinzon - Last Filed: 01/16/20 22:16> Course <Anam Pinzon Last Filed: 01/16/20 22:16> Vital Signs 01/16/20 01/16/20 20:02 23:57 Temperature 97.5 F L 97.9 F Pulse Rate 87 106 H Respiratory 16 16 Rate Blood Pressure 161/88 132/76 O2 Sat by Pulse 97 96 Oximetry - Reevaluation(s) Reevaluation #1: 01/16/20 22:17 Medical record is reviewed (Anam Pinzon) Reevaluation #2: 01/16/20 22:17 Patient was not be medical. To 5 AM (Anam Pinzon) Disposition <Anam Pinzon - Last Filed: 01/16/20 22:16> Is patient prescribed a controlled substance at d/c from ED?: No <Max Head - Last Filed: 01/17/20 05:03> Clinical Impression: Alcohol intoxication Disposition: HOME SELF-CARE Condition: Good Instructions (If sedation given, give patient instructions): Alcohol Intoxication (ED) Referrals: Kermit Partida MD [Primary Care Provider] - 1-2 days
[2020-01-17 05:15] VITALS: BP 111/73; PULSE 100; TEMP 97.8
== END 2020-01-17 05:15 | disposition home or self-care (01) ==
LOC: EC 19:49
DX: F10.129 Alcohol abuse with intoxication, unspecified (principal); I10 Essential (primary) hypertension; F25.0 Schizoaffective disorder, bipolar type; F25.1 Schizoaffective disorder, depressive type; F17.200 Nicotine dependence, unspecified, uncomplicated; Z79.899 Other long term (current) drug therapy
CPT/HCPCS: 82075; 99285

== ENCOUNTER 2020-01-17 07:40 | Emergency (ER) | payer OTHER ==
[2020-01-17 07:46] VITALS: BP 131/94; PULSE 96; RESP 18; TEMP 97.5
--- NOTE | 2020-01-17 07:52 | ED ---
Psych HPI - General Chief Complaint: Psychiatric Symptoms Stated Complaint: MENTAL HEALTH ISSUES Time Seen by Provider: 01/17/20 07:47 Source: patient, RN notes reviewed Mode of arrival: ambulatory Limitations: no limitations - History of Present Illness Initial Comments: This a 54-year-old male presents emergency department for significant evaluation. Patient states that he is depressed, suicidal. Patient has a long history of mental health illness. Patient does admit that he has an issue with drinking. Patient has a history of alcohol abuse. Patient was evaluated and was from last night for alcohol intoxication is not evaluated by psychiatric services. Patient denies being homicidal. - Related Data Home Medications Medication Instructions Recorded Confirmed [place] Carbonate 600 mg PO HS 01/22/19 01/05/20 Mirtazapine 30 mg PO HS 01/25/19 01/05/20 Atorvastatin [Lipitor] 10 mg PO DAILY 10/09/19 01/05/20 Desvenlafaxine Succinate [Pristiq 50 mg PO DAILY 10/09/19 01/05/20 ER] QUEtiapine FUMARATE [SEROquel] 400 mg PO HS 10/09/19 01/05/20 amLODIPine [Norvasc] 5 mg PO DAILY 01/02/20 01/05/20 Allergies Allergy/AdvReac Type Severity Reaction Status Date / Time No Known Allergies Allergy Verified 01/17/20 07:46 Review of Systems ROS Statement: Those systems with pertinent positive or pertinent negative responses have been documented in the HPI. ROS Other: All systems not noted in ROS Statement are negative. Past Medical History Past Medical History: Chest Pain / Angina, Hypertension Additional Past Medical History / Comment(s): ETOH History of Any Multi-Drug Resistant Organisms: None Reported Past Surgical History: Orthopedic Surgery Additional Past Surgical History / Comment(s): Right knee surgery and salma placed in left femur, 3 surgeries on his eyes. Past Anesthesia/Blood Transfusion Reactions: No Reported Reaction Past Psychological History: Anxiety, Bipolar, Depression, Schizoaffective Disorder Smoking Status: Current every day smoker Past Alcohol Use History: Abuse, Daily, Heavy Past Drug Use History: None Reported - Past Family History Mother Additional Family Medical History / Comment(s): Mother at age 36 from motor vehicle accident. His father is also past but does not know the cause or his age. Patient has 3 brothers that are apparently without major medical problems. General Exam Limitations: no limitations General appearance: alert, in no apparent distress Head exam: Present: atraumatic, normocephalic, normal inspection Eye exam: Present: normal appearance, PERRL, EOMI. Absent: scleral icterus, conjunctival injection, periorbital swelling ENT exam: Present: normal exam, normal oropharynx, mucous membranes moist Neck exam: Present: normal inspection, full ROM. Absent: tenderness, meningismus, lymphadenopathy Respiratory exam: Present: normal lung sounds bilaterally. Absent: respiratory distress, wheezes, rales, rhonchi, stridor Cardiovascular Exam: Present: regular rate, normal rhythm, normal heart sounds. Absent: systolic murmur, diastolic murmur, rubs, gallop, clicks Neurological exam: Present: alert, oriented X3, CN II-XII intact Psychiatric exam: Present: depressed, flat affect Skin exam: Present: warm, dry, intact, normal color. Absent: rash Course Vital Signs 01/17/20 07:41 Temperature 97.5 F L Pulse Rate 96 Respiratory 18 Rate Blood Pressure 131/94 O2 Sat by Pulse 98 Oximetry Medical Decision Making - Medical Decision Making Patient evaluated by EPS patient does not meet inpatient criteria is stable for discharge contracts for safety. Disposition Clinical Impression: Depression Disposition: HOME SELF-CARE Condition: Stable Instructions (If sedation given, give patient instructions): Depression (ED) Additional Instructions: Please return to the Emergency Department if symptoms worsen or any other concerns. Is patient prescribed a controlled substance at d/c from ED?: No Referrals: Kermit Partida MD [Primary Care Provider] - 1-2 days Time of Disposition: 11:05
[2020-01-17 12:40] LABS: Amphetamine Screen,Urine Not Detected (NotDetected); Benzodiazepines Screen,Urine Not Detected (NotDetected); Cocaine Screen,Urine Not Detected (NotDetected); Opiate Screen,Urine Not Detected (NotDetected); Phencyclidine Screen,Urine Not Detected (NotDetected); Tricyclic Antidepressant,Urine Detected (NotDetected); Urn Cannabinoid Scrn Not Detected (NotDetected)
[2020-01-17 12:41] LABS: Barbiturate Screen,Urine Not Detected (NotDetected); Methadone Screen, Urine Not Detected (NotDetected); Oxycodone Screen, Urine Not Detected (NotDetected)
== END 2020-01-17 11:11 | disposition home or self-care (01) ==
LOC: EC 07:40
DX: F32.9 Major depressive disorder, single episode, unspecified (principal); R45.851 Suicidal ideations; I10 Essential (primary) hypertension; F25.0 Schizoaffective disorder, bipolar type; F25.1 Schizoaffective disorder, depressive type; F17.200 Nicotine dependence, unspecified, uncomplicated; Z79.899 Other long term (current) drug therapy
CPT/HCPCS: 80306; 82075; 99285

== ENCOUNTER 2020-01-17 18:17 | Emergency (ER) | payer OTHER ==
[2020-01-17 18:23] VITALS: TEMP 99.1
[2020-01-17] MEDS ORDERED: SODIUM CHLORIDE 0.9% 1,000 ML IV STA (18:36)
--- NOTE | 2020-01-17 18:36 | ED ---
General Adult HPI - General Source: EMS Mode of arrival: EMS Limitations: no limitations <SyedAnibal Ang - Last Filed: 01/17/20 19:12> <Max Head - Last Filed: 01/18/20 03:17> - General Chief complaint: Psychiatric Symptoms Stated complaint: ETOH Time Seen by Provider: 01/17/20 18:19 - History of Present Illness Initial comments: Dictation was produced using [employer] (formerly [employer]) dictation software. please excuse any grammatical, word or spelling errors. This patient was cared for during a federal and state declared state of emergency secondary to Covid 19 Chief Complaint: 54-year-old male brought in by EMS for EtOH intoxication suicidal thoughts. History of Present Illness: 54-year-old male who has past medical history of chronic alcoholism hypertension. He is brought in by EMS for EtOH intoxication. Patient is allegedly homeless. He was found by EMS rolling around on the sidewalk. Patient was here earlier today for suicidal thoughts. Patient denies any pain complaints at this time. He does admit to drinking. Patient does not have a specific suicidal plan. Denies any visual or auditory hallucinations. C-collar placed by EMS prior to arrival. The ROS documented in this emergency department record has been reviewed and confirmed by me. Those systems with pertinent positive or negative responses have been documented in the HPI. All other systems are other negative and/or noncontributory. PHYSICAL EXAM: General Impression: Alert and oriented x3, not in acute distress, c-collar in place HEENT: Normocephalic atraumatic, extra-ocular movements intact, pupils equal and reactive to light bilaterally, mucous membranes moist. Cardiovascular: Heart regular rate and rhythm, S1&S2 audible, no murmurs, rubs or gallops Chest: Lungs clear to auscultation bilaterally, no rhonchi, no wheeze, no rales Abdomen: Bowel sounds present, abdomen soft, non-tender, non-distended, no o rganomegaly Musculoskeletal: Pulses present and equal in all extremities, no peripheral edema Motor: no focal deficits noted Neurological: CN II-XII grossly intact, no focal motor or sensory deficits noted Skin: Intact with no visualized rashes Psych: Normal affect and mood ED course: 54-year-old male with homelessness and chronic alcoholism presents with a 2 intoxication and suicidal thoughts. Patient does not have a specific plan. Patient clinically inebriated. Vital signs upon arrival are within acceptable limits. Survey patient's inebriated and there is concern of possible fall with head trauma and neck trauma. Computed tomography scan was obtained. Computed tomography scan of the head and C-spine shows no acute processes. Patient pending clinical sobriety for EPS evaluation. EKG interpretation: Ventricular rate 86, normal sinus rhythm, CA interval 96, QRS is 78, QTC 452. No CA prolongation, no QTC prolongation, no ST or T-wave changes noted. EKG compared to January 02 2020 showing no changes. Overall, this EKG is unremarkable (Anibal Lynch) - Related Data Home Medications Medication Instructions Recorded Confirmed [place] Carbonate 600 mg PO HS 01/22/19 01/05/20 Mirtazapine 30 mg PO HS 01/25/19 01/05/20 Atorvastatin [Lipitor] 10 mg PO DAILY 10/09/19 01/05/20 Desvenlafaxine Succinate [Pristiq 50 mg PO DAILY 10/09/19 01/05/20 ER] QUEtiapine FUMARATE [SEROquel] 400 mg PO HS 10/09/19 01/05/20 amLODIPine [Norvasc] 5 mg PO DAILY 01/02/20 01/05/20 Allergies Allergy/AdvReac Type Severity Reaction Status Date / Time No Known Allergies Allergy Verified 01/17/20 07:46 Review of Systems ROS Other: All systems not noted in ROS Statement are negative. <Anibal Lynch - Last Filed: 01/17/20 19:12> ROS Other: All systems not noted in ROS Statement are negative. <Max Head - Last Filed: 01/18/20 03:17> ROS Statement: Those systems with pertinent positive or pertinent negative responses have been documented in the HPI. Past Medical History Past Medical History: Chest Pain / Angina, Hypertension Additional Past Medical History / Comment(s): ETOH History of Any Multi-Drug Resistant Organisms: None Reported Past Surgical History: Orthopedic Surgery Additional Past Surgical History / Comment(s): Right knee surgery and salma placed in left femur, 3 surgeries on his eyes. Past Anesthesia/Blood Transfusion Reactions: No Reported Reaction Past Psychological History: Anxiety, Bipolar, Depression, Schizoaffective Disorder Smoking Status: Current every day smoker Past Alcohol Use History: Abuse, Daily, Heavy Past Drug Use History: None Reported - Past Family History Mother Additional Family Medical History / Comment(s): Mother at age 36 from motor vehicle accident. His father is also past but does not know the cause or his age. Patient has 3 brothers that are apparently without major medical problems. <Anibal Lynch - Last Filed: 01/17/20 19:12> General Exam Limitations: no limitations <Anibal Lynch - Last Filed: 01/17/20 19:12> Course Vital Signs 01/17/20 01/18/20 18:20 02:01 Temperature 99.1 F Pulse Rate 87 72 Respiratory 16 18 Rate Blood Pressure 142/87 130/82 O2 Sat by Pulse 98 95 Oximetry Disposition <Anibal Lynch - Last Filed: 01/17/20 19:12> Is patient prescribed a controlled substance at d/c from ED?: No <Max Head - Last Filed: 01/18/20 03:17> Clinical Impression: Alcohol intoxication Disposition: HOME SELF-CARE Condition: Fair Instructions (If sedation given, give patient instructions): Abuse of Alcohol (ED) Referrals: None,Stated [Primary Care Provider] - 1-2 days
--- NOTE | 2020-01-17 19:10 | CT ---
EXAMINATION TYPE: CT brain carsonine wo con DATE OF EXAM: 01/17/2020 COMPARISON: 02/26/2019 HISTORY: ETOH and fall. CT DLP: 1435 mGycm Automated exposure control for dose reduction was used. Headache. Neck pain. FINDINGS: There is cerebral cortical atrophy. There is no mass effect nor midline shift. There is no sign of in tracranial hemorrhage. The calvarium is intact. There is probably some mild frontal scalp soft tissue swelling. There is previous anterior fusion surgery from C4 to C7. Vertebra have normal alignment. Posterior el ements are intact. Facet joints are intact. Skull base is intact. Temporal bones are intact. IMPRESSION: Cerebral atrophy. No acute intracranial abnormality. Previous cervical spine fusion surgery. Spondylosis at C7-T1. No fracture seen. No adverse change compared to old exam.
[2020-01-17] MEDS ORDERED: ONDANSETRON 4 MG/2 ML VIAL IVP STA (22:46)
[2020-01-18 02:02] VITALS: RESP 18
[2020-01-18 05:15] VITALS: BP 122/81; PULSE 98
== END 2020-01-18 05:20 | disposition home or self-care (01) ==
LOC: EC 18:17
DX: F10.129 Alcohol abuse with intoxication, unspecified (principal); R45.851 Suicidal ideations; Z59.0 Homelessness; I10 Essential (primary) hypertension; F31.9 Bipolar disorder, unspecified; F41.9 Anxiety disorder, unspecified; F25.9 Schizoaffective disorder, unspecified; F17.200 Nicotine dependence, unspecified, uncomplicated; Z79.899 Other long term (current) drug therapy
CPT/HCPCS: 82075; 93005; 72125; 70450; 99285; 96374; 96361 ×2; J2405

== ENCOUNTER 2020-01-18 16:49 | Emergency (ER) | payer OTHER ==
--- NOTE | 2020-01-18 17:16 | ED ---
General Adult HPI - General Chief complaint: Psychiatric Symptoms Stated complaint: ETOH Time Seen by Provider: 01/18/20 16:51 Source: patient, EMS, RN notes reviewed, old records reviewed Mode of arrival: EMS Limitations: no limitations - History of Present Illness Initial comments: 54-year-old male presenting for evaluation of alcohol abuse and suicidal ideation. Patient states he is feeling more suicidal. He was seen in the emergency department today. Yesterday with similar complaints. Patient states he is cold, hungry. He is currently homeless. He admits to heavy alcohol consumption today. He does not have a specific plan but feels that he is truly suicidal. - Related Data Home Medications Medication Instructions Recorded Confirmed [place] Carbonate 600 mg PO HS 01/22/19 01/19/20 Mirtazapine 30 mg PO HS 01/25/19 01/19/20 Atorvastatin [Lipitor] 10 mg PO DAILY 10/09/19 01/19/20 Desvenlafaxine Succinate [Pristiq 50 mg PO DAILY 10/09/19 01/19/20 ER] QUEtiapine FUMARATE [SEROquel] 400 mg PO HS 10/09/19 01/19/20 amLODIPine [Norvasc] 5 mg PO DAILY 01/02/20 01/19/20 Vivitrol 380mg Im 380 mg IM Q28D 01/18/20 01/19/20 Previous Rx's Medication Instructions Recorded Thiamine [Vitamin B-1] 100 mg PO BID-W/MEALS #60 tab 01/22/20 Allergies Allergy/AdvReac Type Severity Reaction Status Date / Time No Known Allergies Allergy Verified 01/19/20 20:23 Review of Systems ROS Statement: Those systems with pertinent positive or pertinent negative responses have been documented in the HPI. ROS Other: All systems not noted in ROS Statement are negative. Past Medical History Past Medical History: Chest Pain / Angina, Hypertension Additional Past Medical History / Comment(s): ETOH History of Any Multi-Drug Resistant Organisms: None Reported Past Surgical History: Orthopedic Surgery Additional Past Surgical History / Comment(s): Right knee surgery and salma placed in left femur, 3 surgeries on his eyes. Past Anesthesia/Blood Transfusion Reactions: No Reported Reaction Past Psychological History: Anxiety, Bipolar, Depression, Schizoaffective Disorder Smoking Status: Current every day smoker Past Alcohol Use History: Abuse, Daily, Heavy Past Drug Use History: None Reported - Past Family History Mother Additional Family Medical History / Comment(s): Mother at age 36 from motor vehicle accident. His father is also past but does not know the cause or his age. Patient has 3 brothers that are apparently without major medical problems. General Exam Limitations: no limitations General appearance: alert, in no apparent distress Head exam: Present: atraumatic, normocephalic Eye exam: Present: normal appearance, PERRL ENT exam: Present: mucous membranes dry Neck exam: Present: normal inspection. Absent: tenderness, meningismus Respiratory exam: Present: normal lung sounds bilaterally. Absent: respiratory distress, wheezes Cardiovascular Exam: Present: regular rate, normal rhythm GI/Abdominal exam: Present: soft. Absent: distended, tenderness, guarding Extremities exam: Present: normal inspection, normal capillary refill. Absent: pedal edema, calf tenderness Back exam: Present: normal inspection, full ROM Neurological exam: Present: alert, oriented X3, CN II-XII intact. Absent: motor sensory deficit Psychiatric exam: Present: depressed, anxious, flat affect, suicidal ideation Skin exam: Present: warm, dry, intact. Absent: cyanosis, diaphoretic Course Vital Signs 01/18/20 01/18/20 01/18/20 16:55 17:14 17:57 Temperature 96.3 F L Pulse Rate 82 Respiratory 18 18 18 Rate Blood Pressure 120/60 O2 Sat by Pulse 96 Oximetry 01/18/20 01/18/20 01/19/20 18:57 21:45 06:00 Temperature 97.2 F L 98.4 F Pulse Rate 78 84 Respiratory 18 18 16 Rate Blood Pressure 122/79 122/75 O2 Sat by Pulse 98 96 Oximetry 01/19/20 07:11 Temperature 98.4 F Pulse Rate 86 Respiratory 16 Rate Blood Pressure 124/75 O2 Sat by Pulse 96 Oximetry - Reevaluation(s) Reevaluation #1: Patient's care signed out to oncoming physician at shift change. Medical Decision Making - Lab Data Lab Results 01/19/20 Range/Units 05:57 Urine Opiates Screen Not Detected (NotDetected) Ur Oxycodone Screen Not Detected (NotDetected) Urine Methadone Screen Not Detected (NotDetected) Ur Propoxyphene Screen Not Detected (NotDetected) Ur Barbiturates Screen Not Detected (NotDetected) U Tricyclic Antidepress Not Detected (NotDetected) Ur Phencyclidine Scrn Not Detected (NotDetected) Ur Amphetamines Screen Not Detected (NotDetected) U Methamphetamines Scrn Not Detected (NotDetected) U Benzodiazepines Scrn Not Detected (NotDetected) Urine Cocaine Screen Not Detected (NotDetected) U Marijuana (THC) Screen Not Detected (NotDetected) Disposition Clinical Impression: Alcohol abuse, Depression Disposition: HOME SELF-CARE Condition: Fair Is patient prescribed a controlled substance at d/c from ED?: No Referrals: Kermit Partida MD [Primary Care Provider] - 1-2 days
[2020-01-19 06:03] VITALS: RESP 16; TEMP 98.4
[2020-01-19 07:13] VITALS: BP 124/75; PULSE 86
[2020-01-19 07:45] LABS: Amphetamine Screen,Urine Not Detected (NotDetected); Barbiturate Screen,Urine Not Detected (NotDetected); Benzodiazepines Screen,Urine Not Detected (NotDetected); Cocaine Screen,Urine Not Detected (NotDetected); Methadone Screen, Urine Not Detected (NotDetected); Opiate Screen,Urine Not Detected (NotDetected); Oxycodone Screen, Urine Not Detected (NotDetected); Phencyclidine Screen,Urine Not Detected (NotDetected); Tricyclic Antidepressant,Urine Not Detected (NotDetected); Urn Cannabinoid Scrn Not Detected (NotDetected)
== END 2020-01-19 07:15 | disposition home or self-care (01) ==
LOC: EC 16:49
DX: F32.9 Major depressive disorder, single episode, unspecified (principal); F10.10 Alcohol abuse, uncomplicated; I10 Essential (primary) hypertension; F41.9 Anxiety disorder, unspecified; F17.200 Nicotine dependence, unspecified, uncomplicated; Z79.899 Other long term (current) drug therapy; Z59.0 Homelessness
CPT/HCPCS: 80306; 82075; 99285

== ENCOUNTER 2020-01-19 19:03 | Inpatient (IN) | payer OTHER ==
--- NOTE | 2020-01-19 19:08 | ED ---
General Adult HPI - General Stated complaint: Chest Pain Time Seen by Provider: 01/19/20 19:05 - History of Present Illness Initial comments: Dictation was produced using [employer] dictation software. please excuse any grammatical, word or spelling errors. This patient was cared for during a federal and state declared state of emergency secondary to Covid 19 Chief Complaint: 54-year-old male brought in by EMS for EtOH intoxication and c hest pain. History of Present Illness: Patient is a 54-year-old male who is well-known to emergency department for multiple visitations for suicidal ideation and EtOH intoxication. This is patient's fifth visit to our emergency department the last week. Patient is a poor historian. He is clinically inebriated. Patient was at [facility] when he contacted EMS. He states he had some substernal chest pain. The ROS documented in this emergency department record has been reviewed and confirmed by me. Those systems with pertinent positive or negative responses have been documented in the HPI. All other systems are other negative and/or noncontributory. PHYSICAL EXAM: General Impression: Alert and oriented x3, not in acute distress, inebriated HEENT: Normocephalic atraumatic, extra-ocular movements intact, pupils equal and reactive to light bilaterally, mucous membranes moist. Cardiovascular: Heart regular rate and rhythm, S1&S2 audible, no murmurs, rubs or gallops Chest: Able to complete full sentences, no respiratory distress Abdomen: Bowel sounds present, abdomen soft, non-tender, non-distended, no organomegaly Musculoskeletal: Pulses present and equal in all extremities, no peripheral edema Motor: no focal deficits noted Neurological: CN II-XII grossly intact, no focal motor or sensory deficits noted Skin: Intact with no visualized rashes ED course: 54 y Old male presents with EtOH intoxication. Does complain of chest pain. Laboratory evaluation obtained. Mild leukocytosis secondary to stress. Potassium 5.7. Patient given intravenous fluids. Serum alcohol is 237. Chest x-ray is nonacute. Patient clinically inebriated. Considering patient's social situation. We will have patient admitted with social work consultation. Discussed patient case Dr. Partida who is willing to accept patient's care. Patient did complain of some chest pain however it is atypical. Patient given aspirin. EKGs benign. EKG interpretation: Ventricular rate 77, normal sinus rhythm,. Interval 180, QRS 76, QTC 468. No NV prolongation, no QTC prolongation, no ST or T-wave changes noted. Overall, this EKG is unremarkable - Related Data Home Medications Medication Instructions Recorded Confirmed [place] Carbonate 600 mg PO HS 01/22/19 01/18/20 Mirtazapine 30 mg PO HS 01/25/19 01/18/20 Atorvastatin [Lipitor] 10 mg PO DAILY 10/09/19 01/18/20 Desvenlafaxine Succinate [Pristiq 50 mg PO DAILY 10/09/19 01/18/20 ER] QUEtiapine FUMARATE [SEROquel] 400 mg PO HS 10/09/19 01/18/20 amLODIPine [Norvasc] 5 mg PO DAILY 01/02/20 01/18/20 Vivitrol 380mg Im 380 mg IM Q28D 01/18/20 01/18/20 Allergies Allergy/AdvReac Type Severity Reaction Status Date / Time No Known Allergies Allergy Verified 01/19/20 19:08 Review of Systems ROS Statement: Those systems with pertinent positive or pertinent negative responses have been documented in the HPI. ROS Other: All systems not noted in ROS Statement are negative. Past Medical History Past Medical History: Chest Pain / Angina, Hypertension Additional Past Medical History / Comment(s): ETOH History of Any Multi-Drug Resistant Organisms: None Reported Past Surgical History: Orthopedic Surgery Additional Past Surgical History / Comment(s): Right knee surgery and salma placed in left femur, 3 surgeries on his eyes. Past Anesthesia/Blood Transfusion Reactions: No Reported Reaction Past Psychological History: Anxiety, Bipolar, Depression, Schizoaffective Disorder Smoking Status: Current every day smoker Past Alcohol Use History: Abuse, Daily, Heavy Past Drug Use History: None Reported - Past Family History Mother Additional Family Medical History / Comment(s): Mother at age 36 from motor vehicle accident. His father is also past but does not know the cause or his age. Patient has 3 brothers that are apparently without major medical problems. 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 ] Respiratory 18 Rate Blood Pressure 114/83 O2 Sat by Pulse 95 Oximetry Medical Decision Making - Lab Data Result diagrams: 01/19/20 19:21 01/19/20 19:21 Lab Results 01/19/20 01/19/20 Range/Units 19:21 19:21 WBC 12.0 H (3.8-10.6) k/uL RBC 5.07 (4.30-5.90) m/uL Hgb 14.4 (13.0-17.5) gm/dL Hct 45.5 (39.0-53.0) % MCV 89.7 (80.0-100.0) fL MCH 28.3 (25.0-35.0) pg MCHC 31.6 (31.0-37.0) g/dL RDW 13.4 (11.5-15.5) % Plt Count 445 (150-450) k/uL Neutrophils % 56 % Lymphocytes % 32 % Monocytes % 7 % Eosinophils % 2 % Basophils % 1 % Neutrophils # 6.7 (1.3-7.7) k/uL Lymphocytes # 3.9 (1.0-4.8) k/uL Monocytes # 0.8 (0-1.0) k/uL Eosinophils # 0.2 (0-0.7) k/uL Basophils # 0.1 (0-0.2) k/uL Sodium 139 (137-145) mmol/L Potassium 5.7 H (3.5-5.1) mmol/L Chloride 101 (98-107) mmol/L Carbon Dioxide 25 (22-30) mmol/L Anion Gap 13 mmol/L BUN 12 (9-20) mg/dL Creatinine 0.75 (0.66-1.25) mg/dL Est GFR (CKD-EPI)AfAm >90 (>60 ml/min/1.73 sqM) Est GFR (CKD-EPI)NonAf >90 (>60 ml/min/1.73 sqM) Glucose 74 (74-99) mg/dL Calcium 9.6 (8.4-10.2) mg/dL Magnesium 2.3 (1.6-2.3) mg/dL Serum Alcohol 237 H* mg/dL Disposition Clinical Impression: Gravely disabled Disposition: ADMITTED IP TO THIS [facility] Condition: Fair Referrals: Kermit Partida MD [Primary Care Provider] - 1-2 days Decision Time: 19:59
[2020-01-19 19:36] LABS: Basophils # (A) 0.1 k/uL (0-0.2); Basophils % (A) 1 %; Eosinophils # (A) 0.2 k/uL (0-0.7); Eosinophils % (A) 2 %; HCT 45.5 % (39.0-53.0); HGB 14.4 gm/dL (13.0-17.5); Lymphocytes # (A) 3.9 k/uL (1.0-4.8); Lymphocytes % (A) 32 %; MCH 28.3 pg (25.0-35.0); MCHC 31.6 g/dL (31.0-37.0); MCV 89.7 fL (80.0-100.0); Mean Platelet Volume 7.4; Monocytes # (A) 0.8 k/uL (0-1.0); Monocytes % (A) 7 %; Neutrophils # (A) 6.7 k/uL (1.3-7.7); Neutrophils % (A) 56 %; Platelet Count 445 k/uL (150-450); RBC 5.07 m/uL (4.30-5.90); RDW 13.4 % (11.5-15.5)
--- NOTE | 2020-01-19 19:41 | XR ---
EXAMINATION TYPE: XR chest 1V portable DATE OF EXAM: 01/19/2020 HISTORY: Shortness of breath. COMPARISON: 01/02/2020 TECHNIQUE: Single view of the chest is submitted. FINDINGS: Demonstrated are scattered senescent parenchymal change. There is no evidence for focal infiltrate. The heart is stable. Hilar and mediastinal structures are within normal limits. Degenerative changes are seen of the dorsal spine. IMPRESSION: 1. Chronic changes without evidence for acute pulmonary disease.
[2020-01-19 19:49] LABS: African American GFR (CKD) >90 (>60 ml/min/1.73 sqM); Anion Gap 13 mmol/L; Blood Urea Nitrogen 12 mg/dL (9-20); Calcium 9.6 mg/dL (8.4-10.2); Carbon Dioxide 25 mmol/L (22-30); Chloride 101 mmol/L (98-107); Glucose 74 mg/dL (74-99); Magnesium 2.3 mg/dL (1.6-2.3); Non-African American GFR(CKD) >90 (>60 ml/min/1.73 sqM); Potassium 5.7 mmol/L (3.5-5.1); Sodium 139 mmol/L (137-145)
[2020-01-19 19:53] LABS: Alcohol 237 mg/dL
[2020-01-19] MEDS ORDERED: SODIUM CHLORIDE 0.9% 1,000 ML IV STA (19:56)
[2020-01-19] MEDS ORDERED: ASPIRIN 81 MG PO STA (19:56)
[2020-01-19] MEDS ORDERED: NALOXONE 0.4 MG/ML 1 ML VIAL IV PRN (19:56)
[2020-01-19] MEDS ORDERED: ACETAMINOPHEN TAB 325 MG TAB PO PRN (19:56)
[2020-01-19] MEDS ORDERED: LORazepam 2 MG/ML INJ IV PRN ×3 (19:58)
[2020-01-19] MEDS ORDERED: THIAMINE 100 MG/ML 2 ML VIAL IM STA (19:58)
[2020-01-19] MEDS: SODIUM CHLORIDE 0.9% 1,000 ML IV SCH (20:10)
[2020-01-19] MEDS: LITHIUM CARBONATE 300 MG CAP PO SCH (22:57)
[2020-01-19] MEDS: MIRTAZAPINE 15 MG TAB PO SCH (22:57)
[2020-01-19] MEDS: QUEtiapine 400 MG TAB PO SCH (22:57)
[2020-01-20] MEDS: SODIUM CHLORIDE 0.9% 1,000 ML IV SCH ×2 (05:16→17:37)
[2020-01-20] MEDS: THIAMINE 100 MG TAB PO SCH ×2 (08:23→17:37)
--- NOTE | 2020-01-20 16:57 | HP ---
HISTORY AND PHYSICAL CHIEF COMPLAINT: Acute alcohol intoxication and chronic alcoholism. HISTORY OF PRESENT ILLNESS: This is another admission for this 54-year-old white male. He has not been in the office for several years. He presented to the emergency room acutely intoxicated. He states he has also been depressed. Review of systems cannot be reliably obtained due to his intoxication. He had past medical history, family history and personal and social histories are known only to be significant regarding his alcoholism, history of depression and history of hypertension. He also had a diagnosis of schizophrenia and has been under the care of Psychiatry in the past as well. He is not known to be allergic to anything. He apparently continues to smoke. He has had a surgical procedure done on the left femur fracture and a procedure on the right knee. PHYSICAL EXAMINATION: Blood pressure 110/78 with a pulse of 106, respirations of 38 and he is afebrile. In general, he appeared to be disheveled. Skin was dry. Head, ears, eyes, nose, mouth, and throat were normal except for strabismus. Neck veins are not distended. Carotids were normal and the chest is clear. Cardiac exam demonstrated tachycardia and the abdomen is soft, nontender without visceromegaly or masses. Bowel sounds are present. Extremities are normal. Neurologically, he is lethargic, but no DTs. He is admitted to the hospital with diagnoses: 1. Acute alcohol intoxication. 2. Chronic alcoholism. 3. Schizophrenia. 4. Depression. 5. COPD. PLAN: 1. Bed rest. 2. IV fluids. 3. Watch for DTs. 4. CIVT protocol. MMISHMAEL / BHAVNAN: [id number] /
--- NOTE | 2020-01-20 17:21 | PN ---
PROGRESS NOTE DATE OF SERVICE: 01/20/2020 CHIEF COMPLAINT: Acute alcoholism and alcohol intoxication with DTs. HISTORY OF PRESENT ILLNESS: This gentleman is still quite lethargic. He states he is very depressed and we may wind up having refer to Psychiatry but in the meantime, we will continue to follow his alcohol situation and watching for DTs. PHYSICAL EXAMINATION: Otherwise unremarkable. His chest is clear and cardiac exam is normal. The abdomen is soft. IMPRESSION: 1. Acute alcohol intoxication. 2. Alcoholism. 3. Delirium tremens. 4. Depression. PLAN: Continue with IV fluids and close monitoring of his progress into and through DTs as well as depression. MMODL / IJN: [id number] /
[2020-01-20] MEDS: QUEtiapine 400 MG TAB PO SCH (21:03)
[2020-01-20] MEDS: MIRTAZAPINE 15 MG TAB PO SCH (21:03)
[2020-01-20] MEDS: LITHIUM CARBONATE 300 MG CAP PO SCH (21:03)
[2020-01-21] MEDS: SODIUM CHLORIDE 0.9% 1,000 ML IV SCH ×3 (02:15→22:44)
[2020-01-21] MEDS: THIAMINE 100 MG TAB PO SCH ×2 (09:44→17:36)
--- NOTE | 2020-01-21 11:27 | PN ---
PROGRESS NOTE CHIEF COMPLAINT: Acute alcohol intoxication, DTs and alcoholism with depression. HISTORY OF PRESENT ILLNESS: This gentleman is stable and he has had no seizures or significant problems with DTs. He states he is very depressed and is suicidal. PHYSICAL EXAMINATION: Chest is clear. Cardiac exam is normal. Abdomen is soft. Extremities are normal. IMPRESSION: 1. Acute alcohol intoxication. 2. Chronic alcoholism. 3. Possible delirium tremens. 4. Chronic obstructive pulmonary disease. 5. Depression. PLAN: 1. Continue with current program. 2. Psych consult. MMODL / IJN: [id number] /
[2020-01-21] MEDS: QUEtiapine 400 MG TAB PO SCH (20:44)
[2020-01-21] MEDS: LITHIUM CARBONATE 300 MG CAP PO SCH (20:45)
[2020-01-21] MEDS: MIRTAZAPINE 15 MG TAB PO SCH (20:45)
[2020-01-21 20:56] VITALS: RESP 20
[2020-01-22 04:48] VITALS: BP 131/86; PULSE 80; TEMP 98.6
[2020-01-22] MEDS: SODIUM CHLORIDE 0.9% 1,000 ML IV SCH (07:42)
[2020-01-22] MEDS: THIAMINE 100 MG TAB PO SCH (07:42)
[2020-01-22 11:05] LABS: Basophils # (A) 0.1 k/uL (0-0.2); Basophils % (A) 1 %; Eosinophils # (A) 0.4 k/uL (0-0.7); Eosinophils % (A) 5 %; HCT 42.1 % (39.0-53.0); HGB 13.5 gm/dL (13.0-17.5); Lymphocytes # (A) 1.5 k/uL (1.0-4.8); Lymphocytes % (A) 20 %; MCH 29.3 pg (25.0-35.0); MCV 91.5 fL (80.0-100.0); Mean Platelet Volume 7.2; Monocytes # (A) 0.4 k/uL (0-1.0); Monocytes % (A) 5 %; Neutrophils # (A) 4.9 k/uL (1.3-7.7); Neutrophils % (A) 67 %; Platelet Count 283 k/uL (150-450); RDW 13.9 % (11.5-15.5); WBC 7.2 k/uL (3.8-10.6)
[2020-01-22 11:15] LABS: ALT 10 U/L (4-49); AST 22 U/L (17-59); African American GFR (CKD) >90 (>60 ml/min/1.73 sqM); Albumin 3.6 g/dL (3.5-5.0); Alkaline Phosphatase 109 U/L (38-126); Anion Gap 8 mmol/L; Blood Urea Nitrogen 9 mg/dL (9-20); Calcium 8.9 mg/dL (8.4-10.2); Carbon Dioxide 24 mmol/L (22-30); Chloride 106 mmol/L (98-107); Glucose 92 mg/dL (74-99); Non-African American GFR(CKD) >90 (>60 ml/min/1.73 sqM); Potassium 4.9 mmol/L (3.5-5.1); Sodium 138 mmol/L (137-145); Total Bilirubin 0.3 mg/dL (0.2-1.3); Total Protein 6.5 g/dL (6.3-8.2)
--- NOTE | 2020-01-22 13:16 | DS ---
DISCHARGE SUMMARY CHIEF COMPLAINT: Acute alcohol intoxication and depression. HISTORY OF PRESENT ILLNESS AND PHYSICAL EXAMINATION: Details of this man's history and physical can be found in the initial workup. LABORATORY STUDIES: While he was in the hospital, he had laboratory studies, details of which can be found in the laboratory section of the chart. COURSE IN THE HOSPITAL: After admission, he was placed on bed rest and intravenous fluids and he was monitored should he go into DTs. He also was placed on suicide precautions with a sitter. He had no DTs or any other problems while in the hospital. He was seen by Psychiatry who did not feel that he needed to be moved to the psychiatric unit. It was felt that he was safe to be discharged with a guardian and he will go home on his usual activity, diet, and medications and we will follow him up in the office in several days. FINAL DIAGNOSES: 1. Acute alcohol intoxication. 2. Chronic alcoholism. 3. Delirium tremens. 4. Major depression. OPERATIONS: None. CONSULTATIONS: Psychiatry. He is improved. MMISHMAEL / BHAVNAN: [id number] /
== END 2020-01-22 13:28 | disposition home or self-care (01) | DRG 897 ==
LOC: EC 19:03 → 6NMEDSUR 19:56 → OBSVTOIN 01-22 09:20
PROVIDERS: ADMIT Family Medicine; ATTEND Family Medicine
DX: F10.229 Alcohol dependence with intoxication, unspecified (principal); F31.9 Bipolar disorder, unspecified; F25.9 Schizoaffective disorder, unspecified; F10.231 Alcohol dependence with withdrawal delirium; R07.2 Precordial pain; D72.829 Elevated white blood cell count, unspecified; I10 Essential (primary) hypertension; F41.9 Anxiety disorder, unspecified; F17.210 Nicotine dependence, cigarettes, uncomplicated; J44.9 Chronic obstructive pulmonary disease, unspecified; Y90.7 Blood alcohol level of 200-239 mg/100 ml; Z79.899 Other long term (current) drug therapy; Z98.890 Other specified postprocedural states; Z96.7 Presence of other bone and tendon implants; Z86.69 Personal history of other diseases of the nervous system and sense organs; Z87.81 Personal history of (healed) traumatic fracture
CPT/HCPCS: 36415; 71045; 80048; 80053; 80320; 82075; 83735; 84484; 85025; 93005; 96360; 96372; 99285

== ENCOUNTER 2020-01-22 22:01 | Emergency (ER) | payer OTHER ==
[2020-01-22 22:05] VITALS: BP 139/79; PULSE 90; RESP 18; TEMP 97.4
--- NOTE | 2020-01-22 22:17 | ED ---
General Adult HPI - General Chief complaint: Psychiatric Symptoms Stated complaint: Mental Health Time Seen by Provider: 01/22/20 22:14 Source: patient, police Mode of arrival: ambulatory Limitations: no limitations - History of Present Illness Initial comments: Dictation was produced using [employer] dictation software. please excuse any grammatical, word or spelling errors. This patient was cared for during a federal and state declared state of emergency secondary to Covid 19 Chief Complaint: 54-year-old male presents with suicidal ideation. History of Present Illness: 54-year-old male who presents today with suicidal ideation. This is patient's fifth visit in the last 9 days. Patient is well- known to emergency department for multiple visitations for suicidal complaints. Patient has been evaluated on multiple occasions in [place] by psychiatry and discharged every single time. Patient was brought at this time by law enfor cement. States is suicidal. He reports he is tired of his life. He has no specific plan. Patient will also known for significant intoxication. The ROS documented in this emergency department record has been reviewed and confirmed by me. Those systems with pertinent positive or negative responses have been documented in the HPI. All other systems are other negative and/or noncontributory. PHYSICAL EXAM: General Impression: Alert and oriented x3, not in acute distress HEENT: Normocephalic atraumatic, extra-ocular movements intact, pupils equal and reactive to light bilaterally, mucous membranes moist. Cardiovascular: Heart regular rate and rhythm, S1&S2 audible, no murmurs, rubs or gallops Chest: Able to complete full sentences, no retractions, no tachypnea Abdomen: Bowel sounds present, abdomen soft, non-tender, non-distended, no organomegaly Musculoskeletal: Pulses present and equal in all extremities, no peripheral edema Motor: no focal deficits noted Neurological: CN II-XII grossly intact, no focal motor or sensory deficits noted Skin: Intact with no visualized rashes Psych: Normal affect and mood ED course: 54-year-old male presents with suicidal ideation. Vital signs upon arrival are within acceptable limits. Patient's well-appearing. He appears to be at baseline. Patient to be discharge. - Related Data Home Medications Medication Instructions Recorded Confirmed [place] Carbonate 600 mg PO HS 01/22/19 01/19/20 Mirtazapine 30 mg PO HS 01/25/19 01/19/20 Atorvastatin [Lipitor] 10 mg PO DAILY 10/09/19 01/19/20 Desvenlafaxine Succinate [Pristiq 50 mg PO DAILY 10/09/19 01/19/20 ER] QUEtiapine FUMARATE [SEROquel] 400 mg PO HS 10/09/19 01/19/20 amLODIPine [Norvasc] 5 mg PO DAILY 01/02/20 01/19/20 Vivitrol 380mg Im 380 mg IM Q28D 01/18/20 01/19/20 Previous Rx's Medication Instructions Recorded Thiamine [Vitamin B-1] 100 mg PO BID-W/MEALS #60 tab 01/22/20 Allergies Allergy/AdvReac Type Severity Reaction Status Date / Time No Known Allergies Allergy Verified 01/19/20 20:23 Review of Systems ROS Statement: Those systems with pertinent positive or pertinent negative responses have been documented in the HPI. ROS Other: All systems not noted in ROS Statement are negative. Past Medical History Past Medical History: Chest Pain / Angina, Hypertension Additional Past Medical History / Comment(s): ETOH History of Any Multi-Drug Resistant Organisms: None Reported Past Surgical History: Orthopedic Surgery Additional Past Surgical History / Comment(s): Right knee surgery and salma placed in left femur, 3 surgeries on his eyes. Past Anesthesia/Blood Transfusion Reactions: No Reported Reaction Past Psychological History: Anxiety, Bipolar, Depression, Schizoaffective Disorder Smoking Status: Current every day smoker Past Alcohol Use History: Abuse, Daily, Heavy Past Drug Use History: None Reported - Past Family History Mother Additional Family Medical History / Comment(s): Mother at age 36 from motor vehicle accident. His father is also past but does not know the cause or his age. Patient has 3 brothers that are apparently without major medical problems. General Exam Limitations: no limitations Course Vital Signs 01/22/20 22:02 Temperature 97.4 F L Pulse Rate 90 Respiratory 18 Rate Blood Pressure 139/79 O2 Sat by Pulse 98 Oximetry Disposition Clinical Impression: Depression Disposition: HOME SELF-CARE Condition: Good Instructions (If sedation given, give patient instructions): Depression (ED) Is patient prescribed a controlled substance at d/c from ED?: No Referrals: Kermit Partida MD [Primary Care Provider] - 1-2 days Time of Disposition: 22:17
== END 2020-01-22 22:29 | disposition home or self-care (01) ==
LOC: EC 22:01
DX: F31.9 Bipolar disorder, unspecified (principal); I10 Essential (primary) hypertension; F41.9 Anxiety disorder, unspecified; F17.200 Nicotine dependence, unspecified, uncomplicated; Z79.899 Other long term (current) drug therapy
CPT/HCPCS: 99284

== ENCOUNTER 2020-01-22 22:50 | Emergency (ER) | payer OTHER ==
[2020-01-22 23:42] LABS: Appearance,Urine Clear (Clear); Bilirubin,Urine Negative (Negative); Blood,Urine Small (Negative); Color,Urine Yellow; Glucose,Urine (UA) Negative (Negative); Hyaline Casts,Urine 61 /lpf (0-2); Ketones,Urine Negative (Negative); Leukocyte Esterase,Urine Negative (Negative); Mucus,Urine Rare /hpf; Nitrite,Urine Negative (Negative); PH, Urine 5.5 (5.0-8.0); Protein,Urine 1+ (Negative); RBC,Urine 4 /hpf (0-5); Specific Gravity,Urine 1.016 (1.001-1.035); Urobilinogen,Urine <2.0 mg/dL (<2.0); WBC,Urine 1 /hpf (0-5)
[2020-01-22 23:46] LABS: Amphetamine Screen,Urine Not Detected (NotDetected); Barbiturate Screen,Urine Not Detected (NotDetected); Benzodiazepines Screen,Urine Not Detected (NotDetected); Cocaine Screen,Urine Not Detected (NotDetected); Methadone Screen, Urine Not Detected (NotDetected); Opiate Screen,Urine Not Detected (NotDetected); Oxycodone Screen, Urine Not Detected (NotDetected); Phencyclidine Screen,Urine Not Detected (NotDetected); Tricyclic Antidepressant,Urine Detected (NotDetected); Urn Cannabinoid Scrn Not Detected (NotDetected)
[2020-01-22 23:47] VITALS: TEMP 98.3
--- NOTE | 2020-01-22 23:55 | ED ---
Alcohol HPI - General Chief Complaint: Psychiatric Symptoms Stated Complaint: Mental Health Time Seen by Provider: 01/22/20 23:06 Source: police, RN notes reviewed, old records reviewed Mode of arrival: ambulatory Limitations: no limitations - History of Present Illness Initial Comments: This is a 74-year-old male is facility for evaluation of psychiatric illness. Patient presents today with some drinking discharge recently today and that this is his third ER visit today. Patient does admit to some alcohol states is depressed but is homeless as well MD Complaint: alcohol intoxication Last Drink: just [employer] -: minute(s) Previous Visits for Alcohol Intoxication?: Yes Recent Trauma: Yes Associated Symptoms: denies other symptoms Treatments Prior to Arrival: none Chronic Alcohol Use: Yes - Related Data Home Medications Medication Instructions Recorded Confirmed [place] Carbonate 600 mg PO HS 01/22/19 01/19/20 Mirtazapine 30 mg PO HS 01/25/19 01/19/20 Atorvastatin [Lipitor] 10 mg PO DAILY 10/09/19 01/19/20 Desvenlafaxine Succinate [Pristiq 50 mg PO DAILY 10/09/19 01/19/20 ER] QUEtiapine FUMARATE [SEROquel] 400 mg PO HS 10/09/19 01/19/20 amLODIPine [Norvasc] 5 mg PO DAILY 01/02/20 01/19/20 Vivitrol 380mg Im 380 mg IM Q28D 01/18/20 01/19/20 Previous Rx's Medication Instructions Recorded Thiamine [Vitamin B-1] 100 mg PO BID-W/MEALS #60 tab 01/22/20 Allergies Allergy/AdvReac Type Severity Reaction Status Date / Time No Known Allergies Allergy Verified 01/19/20 20:23 Review of Systems ROS Statement: Those systems with pertinent positive or pertinent negative responses have been documented in the HPI. ROS Other: All systems not noted in ROS Statement are negative. Past Medical History Past Medical History: Chest Pain / Angina, Hypertension Additional Past Medical History / Comment(s): ETOH History of Any Multi-Drug Resistant Organisms: None Reported Past Surgical History: Orthopedic Surgery Additional Past Surgical History / Comment(s): Right knee surgery and salma placed in left femur, 3 surgeries on his eyes. Past Anesthesia/Blood Transfusion Reactions: No Reported Reaction Past Psychological History: Anxiety, Bipolar, Depression, Schizoaffective Disorder Smoking Status: Current every day smoker Past Alcohol Use History: Abuse, Daily, Heavy Past Drug Use History: None Reported - Past Family History Mother Additional Family Medical History / Comment(s): Mother at age 36 from motor vehicle accident. His father is also past but does not know the cause or his age. Patient has 3 brothers that are apparently without major medical problems. General Exam Limitations: no limitations General appearance: alert, in no apparent distress Head exam: Present: atraumatic, normocephalic, normal inspection Eye exam: Present: normal appearance, PERRL, EOMI. Absent: scleral icterus, conjunctival injection, periorbital swelling ENT exam: Present: normal exam, mucous membranes moist Neck exam: Present: normal inspection. Absent: tenderness, meningismus, lymphadenopathy Respiratory exam: Present: normal lung sounds bilaterally. Absent: respiratory distress, wheezes, rales, rhonchi, stridor Cardiovascular Exam: Present: regular rate, normal rhythm, normal heart sounds. Absent: systolic murmur, diastolic murmur, rubs, gallop, clicks GI/Abdominal exam: Present: soft, normal bowel sounds. Absent: distended, tenderness, guarding, rebound, rigid Extremities exam: Present: normal inspection, full ROM, normal capillary refill. Absent: tenderness, pedal edema, joint swelling, calf tenderness Back exam: Present: normal inspection Neurological exam: Present: alert, oriented X3, CN II-XII intact Psychiatric exam: Present: normal affect, normal mood Skin exam: Present: warm, dry, intact, normal color. Absent: rash Course Vital Signs 01/22/20 01/22/20 22:50 23:45 Temperature 97.4 F L 98.3 F Pulse Rate 82 96 Respiratory 18 14 Rate Blood Pressure 136/80 149/88 O2 Sat by Pulse 97 97 Oximetry - Reevaluation(s) Reevaluation #1: 01/23/20 03:34 Medical record is reviewed in patient's made medically clear for psychiatric evaluation Patient was admitted inpatient hospitalization as of recent for drug or alcohol abuse as well as psychiatric illness Medical Decision Making - Medical Decision Making 50 more 4-year-old male seen in however psychiatry, patient deemed stable for d ischarge home patient is known to be homeless with whether for place to stay - Lab Data Lab Results 01/22/20 01/22/20 Range/Units 23:23 23:23 Urine Color Yellow Urine Appearance Clear (Clear) Urine pH 5.5 (5.0-8.0) Ur Specific [place] 1.016 (1.001-1.035) Urine Protein 1+ H (Negative) Urine Glucose (UA) Negative (Negative) Urine Ketones Negative (Negative) Urine Blood Small H (Negative) Urine Nitrite Negative (Negative) Urine Bilirubin Negative (Negative) Urine Urobilinogen <2.0 (<2.0) mg/dL Ur Leukocyte Esterase Negative (Negative) Urine RBC 4 (0-5) /hpf Urine WBC 1 (0-5) /hpf Hyaline Casts 61 H (0-2) /lpf Urine Mucus Rare H (None) /hpf Urine Opiates Screen Not Detected (NotDetected) Ur Oxycodone Screen Not Detected (NotDetected) Urine Methadone Screen Not Detected (NotDetected) Ur Propoxyphene Screen Not Detected (NotDetected) Ur Barbiturates Screen Not Detected (NotDetected) U Tricyclic Antidepress Detected H (NotDetected) Ur Phencyclidine Scrn Not Detected (NotDetected) Ur Amphetamines Screen Not Detected (NotDetected) U Methamphetamines Scrn Not Detected (NotDetected) U Benzodiazepines Scrn Not Detected (NotDetected) Urine Cocaine Screen Not Detected (NotDetected) U Marijuana (THC) Screen Not Detected (NotDetected) Disposition Clinical Impression: Alcohol abuse, Depression Disposition: HOME SELF-CARE Condition: Good Instructions (If sedation given, give patient instructions): Depression (ED) Is patient prescribed a controlled substance at d/c from ED?: No Referrals: Kermit Partida MD [Primary Care Provider] - 1-2 days
[2020-01-23 06:05] VITALS: BP 142/84; PULSE 90; RESP 18
== END 2020-01-23 06:04 | disposition home or self-care (01) ==
LOC: EC 22:50
DX: F31.9 Bipolar disorder, unspecified (principal); F10.10 Alcohol abuse, uncomplicated; I10 Essential (primary) hypertension; F17.200 Nicotine dependence, unspecified, uncomplicated; Z79.899 Other long term (current) drug therapy
CPT/HCPCS: 80306; 81001; 82075; 99284

== ENCOUNTER 2020-05-12 10:59 | Emergency (ER) | payer OTHER ==
--- NOTE | 2020-05-12 14:09 | ED ---
Psych HPI - General Chief Complaint: Psychiatric Symptoms Stated Complaint: mental health Time Seen by Provider: 05/12/20 11:20 Source: patient, police, RN notes reviewed Mode of arrival: wheelchair - History of Present Illness Initial Comments: This is a 54-year-old male history depression was brought in by police after stating he wanted to walk out in front of a truck and kill himself. He does admit to drinking alcohol today. No medications ingested. No other complaints at this time. MD Complaint: suicidal ideation, feels depressed - Related Data Home Medications Medication Instructions Recorded Confirmed [place] Carbonate 600 mg PO HS 01/22/19 05/12/20 Mirtazapine 30 mg PO HS 01/25/19 05/12/20 Atorvastatin [Lipitor] 10 mg PO DAILY 10/09/19 05/12/20 QUEtiapine FUMARATE [SEROquel] 400 mg PO HS 10/09/19 05/12/20 amLODIPine [Norvasc] 5 mg PO DAILY 01/02/20 05/12/20 Desvenlafaxine [Pristiq ER] 100 mg PO DAILY 05/12/20 05/12/20 Allergies Allergy/AdvReac Type Severity Reaction Status Date / Time No Known Allergies Allergy Verified 05/12/20 12:38 Review of Systems ROS Statement: Those systems with pertinent positive or pertinent negative responses have been documented in the HPI. ROS Other: All systems not noted in ROS Statement are negative. Past Medical History Past Medical History: Chest Pain / Angina, Hypertension Additional Past Medical History / Comment(s): ETOH History of Any Multi-Drug Resistant Organisms: None Reported Past Surgical History: Orthopedic Surgery Additional Past Surgical History / Comment(s): Right knee surgery and salma placed in left femur, 3 surgeries on his eyes. Past Anesthesia/Blood Transfusion Reactions: No Reported Reaction Past Psychological History: Anxiety, Bipolar, Depression, Schizoaffective Disorder Smoking Status: Current every day smoker Past Alcohol Use History: Abuse, Daily, Heavy Past Drug Use History: None Reported - Past Family History Mother Additional Family Medical History / Comment(s): Mother at age 36 from motor vehicle accident. His father is also past but does not know the cause or his age. Patient has 3 brothers that are apparently without major medical problems. General Exam - General Exam Comments Initial Comments: This is a well-developed asthenic appearing male who is awake alert oriented the smell of alcohol conjoiners on his breath Limitations: no limitations General appearance: alert, in no apparent distress Head exam: Present: atraumatic, normocephalic, normal inspection Eye exam: Present: normal appearance, PERRL, EOMI. Absent: scleral icterus, conjunctival injection, periorbital swelling ENT exam: Present: normal exam, mucous membranes moist Neck exam: Present: normal inspection. Absent: tenderness, meningismus, lymphadenopathy Respiratory exam: Present: normal lung sounds bilaterally. Absent: respiratory distress, wheezes, rales, rhonchi, stridor Cardiovascular Exam: Present: regular rate, normal rhythm, normal heart sounds. Absent: systolic murmur, diastolic murmur, rubs, gallop, clicks GI/Abdominal exam: Present: soft, normal bowel sounds. Absent: distended, tenderness, guarding, rebound, rigid Extremities exam: Present: normal inspection, full ROM, normal capillary refill. Absent: tenderness, pedal edema, joint swelling, calf tenderness Back exam: Present: normal inspection Neurological exam: Present: alert, oriented X3, CN II-XII intact Psychiatric exam: Present: flat affect, suicidal ideation Skin exam: Present: warm, dry, intact, normal color. Absent: rash Course Vital Signs 05/12/20 05/12/20 05/12/20 11:00 11:32 13:09 Temperature 98.6 F Pulse Rate 91 Respiratory 18 18 18 Rate Blood Pressure 96/71 O2 Sat by Pulse 95 Oximetry 05/12/20 13:54 Temperature Pulse Rate Respiratory 18 Rate Blood Pressure O2 Sat by Pulse Oximetry Medical Decision Making - Medical Decision Making The patient was evaluated by [facility] and is currently not a risk to himself is not suicidal or homicidal. He will be discharged with outpatient treatment Disposition Clinical Impression: Adjustment reaction of adult life Disposition: HOME SELF-CARE Condition: Good Instructions (If sedation given, give patient instructions): Suicide Prevention (ED), Mood Disorders (ED) Is patient prescribed a controlled substance at d/c from ED?: No Referrals: Kermit Partida MD [Primary Care Provider] - 1-2 days
[2020-05-12 15:22] VITALS: BP 110/69; PULSE 78; RESP 17; TEMP 97.7
== END 2020-05-12 14:42 | disposition home or self-care (01) ==
LOC: EC 10:59
DX: F43.20 Adjustment disorder, unspecified (principal); R45.851 Suicidal ideations; I10 Essential (primary) hypertension; F31.9 Bipolar disorder, unspecified; F41.9 Anxiety disorder, unspecified; F17.200 Nicotine dependence, unspecified, uncomplicated; Z79.899 Other long term (current) drug therapy
CPT/HCPCS: 82075; 99285

== ENCOUNTER 2020-06-28 16:40 | Emergency (ER) | payer OTHER ==
[2020-06-28 16:50] VITALS: BP 148/97; PULSE 79; RESP 18; TEMP 98.4
[2020-06-28] MEDS ORDERED: SODIUM CHLORIDE 0.9% 1,000 ML IV STA ×2 (17:14)
--- NOTE | 2020-06-28 17:52 | ED ---
Fall HPI - General Source: patient, RN notes reviewed, old records reviewed Mode of arrival: ambulatory <Heather Vega - Last Filed: 06/28/20 19:52> <Marlene Velázquez P - Last Filed: 06/29/20 08:34> - General Chief Complaint: Fall Stated Complaint: fall Time Seen by Provider: 06/28/20 17:07 - History of Present Illness Initial Comments: Patient is a 34-year-old male presents the ER today for evaluation for alcohol intoxication. Patient states that he fell hitting the right side of his head. Denies loss of consciousness. Was brought in by EMS. He has a history of long- standing alcohol abuse as well as mental health. He did state that he is suicidal on a ER triage. (Heather Vega) - Related Data Home Medications Medication Instructions Recorded Confirmed [place] Carbonate 600 mg PO HS 01/22/19 05/12/20 Mirtazapine 30 mg PO HS 01/25/19 05/12/20 Atorvastatin [Lipitor] 10 mg PO DAILY 10/09/19 05/12/20 QUEtiapine FUMARATE [SEROquel] 400 mg PO HS 10/09/19 05/12/20 amLODIPine [Norvasc] 5 mg PO DAILY 01/02/20 05/12/20 Desvenlafaxine [Pristiq ER] 100 mg PO DAILY 05/12/20 05/12/20 Allergies Allergy/AdvReac Type Severity Reaction Status Date / Time No Known Allergies Allergy Verified 06/28/20 16:50 Review of Systems ROS Other: All systems not noted in ROS Statement are negative. <Heather Vega - Last Filed: 06/28/20 19:52> ROS Other: All systems not noted in ROS Statement are negative. <Marlene Velázquez P - Last Filed: 06/29/20 08:34> ROS Statement: Those systems with pertinent positive or pertinent negative responses have been documented in the HPI. Past Medical History Past Medical History: Chest Pain / Angina, Hypertension Additional Past Medical History / Comment(s): ETOH History of Any Multi-Drug Resistant Organisms: None Reported Past Surgical History: Orthopedic Surgery Additional Past Surgical History / Comment(s): Right knee surgery and salma placed in left femur, 3 surgeries on his eyes. Past Anesthesia/Blood Transfusion Reactions: No Reported Reaction Past Psychological History: Anxiety, Bipolar, Depression, Schizoaffective Disorder Smoking Status: Current every day smoker Past Alcohol Use History: Abuse, Daily, Heavy Past Drug Use History: None Reported - Past Family History Mother Additional Family Medical History / Comment(s): Mother at age 36 from motor vehicle accident. His father is also past but does not know the cause or his age. Patient has 3 brothers that are apparently without major medical problems. <Heather Vega - Last Filed: 06/28/20 19:52> General Exam Limitations: no limitations General appearance: alert, in no apparent distress Head exam: Present: atraumatic, normocephalic, normal inspection Eye exam: Present: normal appearance, PERRL, EOMI. Absent: scleral icterus, conjunctival injection, periorbital swelling ENT exam: Present: normal exam, mucous membranes moist, other (Patient is a 37 m laceration above the right eyebrow.) Neck exam: Present: normal inspection. Absent: tenderness, meningismus, lymphadenopathy Respiratory exam: Present: normal lung sounds bilaterally. Absent: respiratory distress, wheezes, rales, rhonchi, stridor Cardiovascular Exam: Present: regular rate, normal rhythm, normal heart sounds. Absent: systolic murmur, diastolic murmur, rubs, gallop, clicks GI/Abdominal exam: Present: soft, normal bowel sounds. Absent: distended, tenderness, guarding, rebound, rigid Extremities exam: Present: normal inspection, full ROM, normal capillary refill, other (Patient is abrasion over the right forearm.). Absent: tenderness, pedal edema, joint swelling, calf tenderness Back exam: Present: normal inspection Neurological exam: Present: alert, oriented X3, CN II-XII intact Psychiatric exam: Present: normal affect, normal mood Skin exam: Present: warm, dry, intact, normal color. Absent: rash <Heather Vega - Last Filed: 06/28/20 19:52> - General Exam Comments Initial Comments: 54-year-old male. Alert.. No significant distress. Patient is intoxicated. (Heather Vega) Course Vital Signs 06/28/20 16:41 Temperature 98.4 F Pulse Rate 79 Respiratory 18 Rate Blood Pressure 148/97 O2 Sat by Pulse 99 Oximetry Procedures - Laceration Laceration #1 Indication: laceration Site: face Size (cm): 3 Description: irregular Anesthetic Used: lidocaine 1% Anesthesia Technique: local infiltration Amount (mls): 4 Pre-repair: wound explored, irrigated extensively Type of Sutures: nylon Size of Sutures: 5-0 Number of Sutures: 4 Technique: simple, interrupted Patient Tolerated Procedure: well, no complications <Heather Vega - Last Filed: 06/28/20 19:52> Medical Decision Making - Lab Data Result diagrams: 06/28/20 18:18 06/28/20 18:50 - Radiology Data Radiology results: report reviewed <Heather Vega - Last Filed: 06/28/20 19:52> - Lab Data Result diagrams: 06/28/20 18:18 06/28/20 18:50 <Marlene Velázquez - Last Filed: 06/29/20 08:34> - Medical Decision Making 54-year-old male history of falls and presents today with a fall. Patient hit the right side of his head from standing position. Patient has a contusion over the right eyebrow laceration. The wound is irrigated and closed with [address] of the brain was reviewed and negative for any acute process. Patient's serum alcohol is 235. He did mention he is suicidal initially on a triage. Psych precautions were completed. When Patient was getting states she stated he was not suicidal. He is still intoxicated this time. Patient is a be transferred to Dr. Cortez's 8 PM. (Heather Vega) Patient care was signed out to me by Dr. Cervantes at 11 PM. Patient was initially evaluated for fall and medically cleared he then made suicidal statements. Patient was determined to be intoxicated, he was determined to be sober at 1:30 AM and was evaluated by the emergency psychiatric services nurse. Patient was able to contract for safety and was determined to be safe for discharge home. ( Marlene Velázquez) - Lab Data Lab Results 06/28/20 06/28/20 06/28/20 Range/Units 18:18 18:50 19:19 WBC 12.1 H (3.8-10.6) k/uL RBC 5.62 (4.30-5.90) m/uL Hgb 16.8 (13.0-17.5) gm/dL Hct 54.0 H (39.0-53.0) % MCV 96.1 (80.0-100.0) fL MCH 29.9 (25.0-35.0) pg MCHC 31.1 (31.0-37.0) g/dL RDW 13.6 (11.5-15.5) % Plt Count 337 (150-450) k/uL Neutrophils % 70 % Lymphocytes % 17 % Monocytes % 9 % Eosinophils % 2 % Basophils % 0 % Neutrophils # 8.4 H (1.3-7.7) k/uL Lymphocytes # 2.0 (1.0-4.8) k/uL Monocytes # 1.1 H (0-1.0) k/uL Eosinophils # 0.3 (0-0.7) k/uL Basophils # 0.0 (0-0.2) k/uL Hypochromasia Slight Sodium 140 (137-145) mmol/L Potassium 3.8 (3.5-5.1) mmol/L Chloride 111 H (98-107) mmol/L Carbon Dioxide 22 (22-30) mmol/L Anion Gap 7 mmol/L BUN 2 L (9-20) mg/dL Creatinine 0.58 L (0.66-1.25) mg/dL Est GFR (CKD-EPI)AfAm >90 (>60 ml/min/1.73 sqM) Est GFR (CKD-EPI)NonAf >90 (>60 ml/min/1.73 sqM) Glucose 95 (74-99) mg/dL Calcium 8.7 (8.4-10.2) mg/dL Magnesium 2.1 (1.6-2.3) mg/dL Total Bilirubin 0.3 (0.2-1.3) mg/dL AST 27 (17-59) U/L ALT 10 (4-49) U/L Alkaline Phosphatase 118 (38-126) U/L Total Protein 6.3 (6.3-8.2) g/dL Albumin 3.5 (3.5-5.0) g/dL Amylase 164 H (30-110) U/L Lipase 558 H (23-300) U/L Urine Color Colorless Urine Appearance Clear (Clear) Urine pH 6.5 (5.0-8.0) Ur Specific [place] 1.001 (1.001-1.035) Urine Protein Negative (Negative) Urine Glucose (UA) Negative (Negative) Urine Ketones Negative (Negative) Urine Blood Trace H (Negative) Urine Nitrite Negative (Negative) Urine Bilirubin Negative (Negative) Urine Urobilinogen <2.0 (<2.0) mg/dL Ur Leukocyte Esterase Negative (Negative) Urine Opiates Screen (NotDetected) Ur Oxycodone Screen (NotDetected) Urine Methadone Screen (NotDetected) Ur Propoxyphene Screen (NotDetected) Ur Barbiturates Screen (NotDetected) U Tricyclic Antidepress (NotDetected) Ur Phencyclidine Scrn (NotDetected) Ur Amphetamines Screen (NotDetected) U Methamphetamines Scrn (NotDetected) U Benzodiazepines Scrn (NotDetected) Urine Cocaine Screen (NotDetected) U Marijuana (THC) Screen (NotDetected) Serum Alcohol 235 H* mg/dL 06/28/20 Range/Units 19:19 WBC (3.8-10.6) k/uL RBC (4.30-5.90) m/uL Hgb (13.0-17.5) gm/dL Hct (39.0-53.0) % MCV (80.0-100.0) fL MCH (25.0-35.0) pg MCHC (31.0-37.0) g/dL RDW (11.5-15.5) % Plt Count (150-450) k/uL Neutrophils % % Lymphocytes % % Monocytes % % Eosinophils % % Basophils % % Neutrophils # (1.3-7.7) k/uL Lymphocytes # (1.0-4.8) k/uL Monocytes # (0-1.0) k/uL Eosinophils # (0-0.7) k/uL Basophils # (0-0.2) k/uL Hypochromasia Sodium (137-145) mmol/L Potassium (3.5-5.1) mmol/L Chloride (98-107) mmol/L Carbon Dioxide (22-30) mmol/L Anion Gap mmol/L BUN (9-20) mg/dL Creatinine (0.66-1.25) mg/dL Est GFR (CKD-EPI)AfAm (>60 ml/min/1.73 sqM) Est GFR (CKD-EPI)NonAf (>60 ml/min/1.73 sqM) Glucose (74-99) mg/dL Calcium (8.4-10.2) mg/dL Magnesium (1.6-2.3) mg/dL Total Bilirubin (0.2-1.3) mg/dL AST (17-59) U/L ALT (4-49) U/L Alkaline Phosphatase (38-126) U/L Total Protein (6.3-8.2) g/dL Albumin (3.5-5.0) g/dL Amylase (30-110) U/L Lipase (23-300) U/L Urine Color Urine Appearance (Clear) Urine pH (5.0-8.0) Ur Specific [place] (1.001-1.035) Urine Protein (Negative) Urine Glucose (UA) (Negative) Urine Ketones (Negative) Urine Blood (Negative) Urine Nitrite (Negative) Urine Bilirubin (Negative) Urine Urobilinogen (<2.0) mg/dL Ur Leukocyte Esterase (Negative) Urine Opiates Screen Not Detected (NotDetected) Ur Oxycodone Screen Not Detected (NotDetected) Urine Methadone Screen Not Detected (NotDetected) Ur Propoxyphene Screen Not Detected (NotDetected) Ur Barbiturates Screen Not Detected (NotDetected) U Tricyclic Antidepress Detected H (NotDetected) Ur Phencyclidine Scrn Not Detected (NotDetected) Ur Amphetamines Screen Not Detected (NotDetected) U Methamphetamines Scrn Not Detected (NotDetected) U Benzodiazepines Scrn Not Detected (NotDetected) Urine Cocaine Screen Not Detected (NotDetected) U Marijuana (THC) Screen Not Detected (NotDetected) Serum Alcohol mg/dL - Radiology Data Mild atrophy. Hydrocephalus. Brain unchanged compared old exam. Spondylitic changes in cervical spine stable compared old exam. Multilevel fusion surgery. (Heather Vega) Disposition <Heather Vega - Last Filed: 06/28/20 19:52> Is patient prescribed a controlled substance at d/c from ED?: No <Marlene Velázquez - Last Filed: 06/29/20 08:34> Clinical Impression: Alcohol abuse Disposition: HOME SELF-CARE Condition: Stable Referrals: Kermit Partida MD [Primary Care Provider] - 1-2 days
--- NOTE | 2020-06-28 17:58 | CT ---
EXAMINATION TYPE: CT brain cspine wo con DATE OF EXAM: 06/28/2020 COMPARISON: 01/17/2020 HISTORY: Fall today with Right sided injury CT DLP: 1455.1 mGycm Automated exposure control for dose reduction was used. There is enlargement of the ventricles. There is mild cerebral atrophy. There is no mass effect nor m idline shift. There is no sign of intracranial hemorrhage. The calvarium is intact. Cervical vertebra show multilevel anterior fusion from C4 to C7. There is C7-T1 anterior spurring and disc space narrowing. There is no evidence of cervical spine fracture. There is some patchy airspace infiltrate right upper lobe. IMPRESSION: Mild atrophy. Hydrocephalus. Brain unchanged compared to old exam. Spondylotic changes in the cervical spine appear stable compared to old exam. Multilevel fusion surge ry.
[2020-06-28 18:40] LABS: Basophils % (A) 0 %; Eosinophils # (A) 0.3 k/uL (0-0.7); Eosinophils % (A) 2 %; HGB 16.8 gm/dL (13.0-17.5); Hypochromasia Slight; Lymphocytes % (A) 17 %; MCH 29.9 pg (25.0-35.0); MCHC 31.1 g/dL (31.0-37.0); MCV 96.1 fL (80.0-100.0); Mean Platelet Volume 8.4; Monocytes # (A) 1.1 k/uL (0-1.0); Monocytes % (A) 9 %; Neutrophils # (A) 8.4 k/uL (1.3-7.7); Neutrophils % (A) 70 %; Platelet Count 337 k/uL (150-450); RBC 5.62 m/uL (4.30-5.90); RDW 13.6 % (11.5-15.5); WBC 12.1 k/uL (3.8-10.6)
[2020-06-28 19:12] LABS: ALT 10 U/L (4-49); AST 27 U/L (17-59); African American GFR (CKD) >90 (>60 ml/min/1.73 sqM); Albumin 3.5 g/dL (3.5-5.0); Alkaline Phosphatase 118 U/L (38-126); Amylase 164 U/L (30-110); Anion Gap 7 mmol/L; Blood Urea Nitrogen 2 mg/dL (9-20); Calcium 8.7 mg/dL (8.4-10.2); Carbon Dioxide 22 mmol/L (22-30); Chloride 111 mmol/L (98-107); Glucose 95 mg/dL (74-99); Magnesium 2.1 mg/dL (1.6-2.3); Non-African American GFR(CKD) >90 (>60 ml/min/1.73 sqM); Potassium 3.8 mmol/L (3.5-5.1); Sodium 140 mmol/L (137-145); Total Bilirubin 0.3 mg/dL (0.2-1.3); Total Protein 6.3 g/dL (6.3-8.2)
[2020-06-28 19:27] LABS: Alcohol 235 mg/dL
[2020-06-28 19:29] LABS: Appearance,Urine Clear (Clear); Bilirubin,Urine Negative (Negative); Blood,Urine Trace (Negative); Color,Urine Colorless; Glucose,Urine (UA) Negative (Negative); Ketones,Urine Negative (Negative); Leukocyte Esterase,Urine Negative (Negative); Nitrite,Urine Negative (Negative); PH, Urine 6.5 (5.0-8.0); Protein,Urine Negative (Negative); Specific Gravity,Urine 1.001 (1.001-1.035); Urobilinogen,Urine <2.0 mg/dL (<2.0)
[2020-06-28] MEDS ORDERED: LIDOCAINE 1% INJ 10MG/ML (20 ML MDV) SQ ONE (19:30)
[2020-06-28 19:40] LABS: Amphetamine Screen,Urine Not Detected (NotDetected); Benzodiazepines Screen,Urine Not Detected (NotDetected); Cocaine Screen,Urine Not Detected (NotDetected); Opiate Screen,Urine Not Detected (NotDetected); Phencyclidine Screen,Urine Not Detected (NotDetected); Urn Cannabinoid Scrn Not Detected (NotDetected)
[2020-06-28 19:41] LABS: Barbiturate Screen,Urine Not Detected (NotDetected); Methadone Screen, Urine Not Detected (NotDetected); Oxycodone Screen, Urine Not Detected (NotDetected); Tricyclic Antidepressant,Urine Detected (NotDetected)
[2020-06-28] MEDS ORDERED: 1: MVI, ADULT NO.4 WITH VIT K 10 ML, THIAMINE 100 MG, FOLIC ACID 1 MG in SODIUM CHLORIDE IV SCH ×4 (20:00)
== END 2020-06-29 02:47 | disposition home or self-care (01) ==
LOC: EC 16:40
DX: F10.129 Alcohol abuse with intoxication, unspecified (principal); S01.111A Laceration without foreign body of right eyelid and periocular area, initial encounter; F31.9 Bipolar disorder, unspecified; F25.9 Schizoaffective disorder, unspecified; F41.9 Anxiety disorder, unspecified; I10 Essential (primary) hypertension; I20.9 Angina pectoris, unspecified; Y90.7 Blood alcohol level of 200-239 mg/100 ml; F17.200 Nicotine dependence, unspecified, uncomplicated; Z79.899 Other long term (current) drug therapy; W18.00XA Striking against unspecified object with subsequent fall, initial encounter; Y92.009 Unspecified place in unspecified non-institutional (private) residence as the place of occurrence of the external cause
CPT/HCPCS: 82075; 36415; 80053; 82150; 83690; 83735; 85025; 81001; 80306; 70450; 72125; 99285; 12013; 96365; 96366 ×4; 96361 ×4; G0480; J3411; J2001; 80320

== ENCOUNTER → 2020-08-03 | Outpatient (CLI) | payer MEDICAID ==
[2020-08-03 22:35] LABS: African American GFR (CKD) 111.8 (60.0-200.0); Albumin 3.9 g/dL (3.80-4.90); Albumin/Globulin Ratio 1.86 (1.60-3.17); Bilirubin, Conjugated 0.2 mg/dL (0.20-0.40); Bilirubin,Unconjugated 0.2 mg/dL; Chol/HDL Ratio 4.38; Globulin 2.1 g/dL (1.6-3.3); LDL Cholesterol,Calculated 77.8 mg/dL (0.0-131.0); Non-African American GFR(CKD) 96.5 (60.0-200.0); Total Bilirubin 0.4 mg/dL (0.3-1.2); VLDL Calculation 37.2 mg/dL (5.00-40.00)
[2020-08-03 23:11] LABS: Lithium 0.6 mmol/L (0.5-1.2)
== END | disposition home or self-care (01) ==
LOC: LABWHC1 12:03
PROVIDERS: ATTEND Psychiatry & Neurology Psychiatry
DX: Z51.81 Encounter for therapeutic drug level monitoring (principal); Z79.899 Other long term (current) drug therapy
CPT/HCPCS: 36415; 80061; 80076; 80178; 82565; 83036; 84439; 84443; 84520

== ENCOUNTER 2021-01-08 23:38 | Emergency (ER) | payer OTHER ==
[2021-01-08 23:55] VITALS: BP 136/84; PULSE 67; RESP 18; TEMP 98.5
--- NOTE | 2021-01-09 00:47 | ED ---
General Adult HPI - General Chief complaint: Psychiatric Symptoms Stated complaint: Mental health Source: patient, RN notes reviewed Mode of arrival: ambulatory Limitations: no limitations - History of Present Illness Initial comments: 55-year-old male with a past psychiatric history presents to the emergency room for a chief complaint of not liking his living situation. Patient reports he has not liked his living situation for months. States he wants to get this fixed. Patient denies any suicidal or homicidal thoughts. Patient thinks that we will be able to do this for him through the emergency room or on .Patient has no other complaints at this time including shortness of breath, chest pain, abdominal pain, nausea or vomiting, headache, or visual changes. - Related Data Home Medications Medication Instructions Recorded Confirmed [place] Carbonate 600 mg PO HS 01/22/19 05/12/20 Mirtazapine 30 mg PO HS 01/25/19 05/12/20 Atorvastatin [Lipitor] 10 mg PO DAILY 10/09/19 05/12/20 QUEtiapine FUMARATE [SEROquel] 400 mg PO HS 10/09/19 05/12/20 amLODIPine [Norvasc] 5 mg PO DAILY 01/02/20 05/12/20 Desvenlafaxine [Pristiq ER] 100 mg PO DAILY 05/12/20 05/12/20 Allergies Allergy/AdvReac Type Severity Reaction Status Date / Time No Known Allergies Allergy Verified 06/28/20 16:50 Review of Systems ROS Statement: Those systems with pertinent positive or pertinent negative responses have been documented in the HPI. ROS Other: All systems not noted in ROS Statement are negative. Past Medical History Past Medical History: Chest Pain / Angina, Hypertension Additional Past Medical History / Comment(s): ETOH History of Any Multi-Drug Resistant Organisms: None Reported Past Surgical History: Orthopedic Surgery Additional Past Surgical History / Comment(s): Right knee surgery and salma placed in left femur, 3 surgeries on his eyes. Past Anesthesia/Blood Transfusion Reactions: No Reported Reaction Past Psychological History: Anxiety, Bipolar, Depression, Schizoaffective Disorder Smoking Status: Current every day smoker Past Alcohol Use History: Abuse, Daily, Heavy Past Drug Use History: None Reported - Past Family History Mother Additional Family Medical History / Comment(s): Mother at age 36 from motor vehicle accident. His father is also past but does not know the cause or his age. Patient has 3 brothers that are apparently without major medical problems. General Exam Limitations: no limitations General appearance: alert, in no apparent distress Head exam: Present: atraumatic, normocephalic, normal inspection Eye exam: Present: normal appearance, PERRL, EOMI. Absent: scleral icterus, conjunctival injection, periorbital swelling ENT exam: Present: normal exam, mucous membranes moist Neck exam: Present: normal inspection Respiratory exam: Present: normal lung sounds bilaterally. Absent: respiratory distress, wheezes, rales, rhonchi, stridor Cardiovascular Exam: Present: regular rate, normal rhythm, normal heart sounds. Absent: systolic murmur, diastolic murmur, rubs, gallop, clicks Neurological exam: Present: alert, oriented X3 Psychiatric exam: Present: normal affect, normal mood. Absent: homicidal ideation, suicidal ideation Course Vital Signs 01/08/21 23:49 Temperature 98.5 F Pulse Rate 67 Respiratory 18 Rate Blood Pressure 136/84 O2 Sat by Pulse 98 Oximetry Medical Decision Making - Medical Decision Making Vitals are stable. Patient is well appearing. Patient is denying any suicidal or homicidal thoughts. Patient is here for a change in his long term. RN did speak with her legal guardian for patient. Discussed situation with them. Discussed that patient is actually requesting to leave at this time. Legal guardian is okay with discharge home. We are offering to send patient in a cab. Patient again denying suicidal or homicidal thoughts. Disposition Clinical Impression: Adjustment reaction of adult life Disposition: HOME SELF-CARE Condition: Good Instructions (If sedation given, give patient instructions): Stress (ED) Additional Instructions: Please follow up with primary care in 1-2 days. Return to the emergency room for any worsening symptoms. Is patient prescribed a controlled substance at d/c from ED?: No Referrals: Phillip Noel MD [REFERRING] - 1-2 days Time of Disposition: 01:04
== END 2021-01-09 01:05 | disposition home or self-care (01) ==
LOC: EC 23:38
DX: F43.23 Adjustment disorder with mixed anxiety and depressed mood (principal); I10 Essential (primary) hypertension; F17.200 Nicotine dependence, unspecified, uncomplicated
CPT/HCPCS: 82075; 99283

== ENCOUNTER 2021-01-09 04:15 | Emergency (ER) | payer OTHER ==
[2021-01-09 04:28] VITALS: BP 136/84; PULSE 74; RESP 18; TEMP 97.7
--- NOTE | 2021-01-09 04:51 | ED ---
Psych HPI - General Chief Complaint: Psychiatric Symptoms Stated Complaint: Police Petition Time Seen by Provider: 01/09/21 04:44 Source: patient, police Mode of arrival: ambulatory - History of Present Illness Initial Comments: "I would be better off " MD Complaint: suicidal ideation, feels depressed -: unknown Associated Psychiatric Symptoms: suicidal ideation History of same: Yes Quality: constant Improves With: none Worsens With: none - Related Data Home Medications Medication Instructions Recorded Confirmed [place] Carbonate 600 mg PO HS 01/22/19 05/12/20 Mirtazapine 30 mg PO HS 01/25/19 05/12/20 Atorvastatin [Lipitor] 10 mg PO DAILY 10/09/19 05/12/20 QUEtiapine FUMARATE [SEROquel] 400 mg PO HS 10/09/19 05/12/20 amLODIPine [Norvasc] 5 mg PO DAILY 01/02/20 05/12/20 Desvenlafaxine [Pristiq ER] 100 mg PO DAILY 05/12/20 05/12/20 Allergies Allergy/AdvReac Type Severity Reaction Status Date / Time No Known Allergies Allergy Verified 01/09/21 04:28 Review of Systems ROS Statement: Those systems with pertinent positive or pertinent negative responses have been documented in the HPI. ROS Other: All systems not noted in ROS Statement are negative. Constitutional: Denies: fever Respiratory: Denies: cough, dyspnea Cardiovascular: Denies: chest pain, palpitations Gastrointestinal: Denies: abdominal pain, vomiting, diarrhea Musculoskeletal: Denies: back pain Skin: Denies: rash Neurological: Denies: headache, weakness Psychiatric: Reports: depression, suicidal thoughts. Denies: auditory hallucinations, visual hallucinations, homicidal thoughts Past Medical History Past Medical History: Chest Pain / Angina, Hypertension Additional Past Medical History / Comment(s): ETOH History of Any Multi-Drug Resistant Organisms: None Reported Past Surgical History: Orthopedic Surgery Additional Past Surgical History / Comment(s): Right knee surgery and salma placed in left femur, 3 surgeries on his eyes. Past Anesthesia/Blood Transfusion Reactions: No Reported Reaction Past Psychological History: Anxiety, Bipolar, Depression, Schizoaffective Disord er Smoking Status: Current every day smoker Past Alcohol Use History: Abuse, Daily, Heavy Past Drug Use History: None Reported - Past Family History Mother Additional Family Medical History / Comment(s): Mother at age 36 from motor vehicle accident. His father is also past but does not know the cause or his age. Patient has 3 brothers that are apparently without major medical problems. General Exam Limitations: no limitations General appearance: alert, in no apparent distress Head exam: Present: atraumatic, normocephalic Respiratory exam: Present: normal lung sounds bilaterally. Absent: respiratory distress, wheezes, rales, rhonchi, stridor Cardiovascular Exam: Present: regular rate, normal rhythm, normal heart sounds. Absent: systolic murmur, diastolic murmur, rubs, gallop GI/Abdominal exam: Present: soft. Absent: tenderness, guarding Extremities exam: Present: normal inspection Neurological exam: Present: alert Psychiatric exam: Present: depressed, suicidal ideation. Absent: agitated, anxious, flat affect, manic, homicidal ideation Skin exam: Present: warm, dry, intact, normal color. Absent: rash Course Vital Signs 01/09/21 04:23 Temperature 97.7 F Pulse Rate 74 Respiratory 18 Rate Blood Pressure 136/84 O2 Sat by Pulse 96 Oximetry Disposition Clinical Impression: Mood disorder Disposition: HOME SELF-CARE Condition: Good Instructions (If sedation given, give patient instructions): Mood Disorders (ED) Is patient prescribed a controlled substance at d/c from ED?: No Referrals: None,Stated [Primary Care Provider] - 1-2 days
[2021-01-09] MEDS ORDERED: NICOTINE 21MG/24HR PATCH TRANSDERM STA (06:55)
== END 2021-01-09 10:50 | disposition home or self-care (01) ==
LOC: EC 04:15
DX: F39 Unspecified mood [affective] disorder (principal); I10 Essential (primary) hypertension; F41.9 Anxiety disorder, unspecified; F32.9 Major depressive disorder, single episode, unspecified; F17.200 Nicotine dependence, unspecified, uncomplicated
CPT/HCPCS: 82075; 99285

== ENCOUNTER 2021-01-10 12:17 | Inpatient (IN) | payer MEDICAID, OTHER ==
--- NOTE | 2021-01-10 13:19 | ED ---
General Adult HPI - General Chief complaint: Psychiatric Symptoms Stated complaint: Mental health Time Seen by Provider: 01/10/21 12:45 Source: police, RN notes reviewed - History of Present Illness Initial comments: Patient is a 55-year-old male presenting to the emergency department with traffic police officer escort. Patient reportedly was trying to jump in front of traffic with threats of harming himself and others. Patient has history of frequent alcohol use. Patient is sitting upright in bed however remaining nonverbal at this time. Patient is also not speaking to the nurse. Patient makes no complaints. - Related Data Home Medications Medication Instructions Recorded Confirmed [place] Carbonate 600 mg PO HS@199901/22/19 01/10/21 Mirtazapine 30 mg PO HS@199901/25/19 01/10/21 QUEtiapine FUMARATE [SEROquel] 400 mg PO HS@199910/09/19 01/10/21 amLODIPine [Norvasc] 5 mg PO DAILY@69901/02/20 01/10/21 Artificial Tears-Hypromellose 1 drops BOTH EYES TID 01/09/21 01/10/21 [Artificial Tear Drops] Atorvastatin [Lipitor] 20 mg PO HS@199901/09/21 01/10/21 Ergocalciferol [Vitamin D2 (1250 1,250 mcg PO MO 01/09/21 01/10/21 Mcg = 72509 Iu)] FLUoxetine HCL [PROzac] 60 mg PO DAILY@0700 01/09/21 01/10/21 Omeprazole 20 mg PO DAILY@0701/09/21 01/10/21 Allergies Allergy/AdvReac Type Severity Reaction Status Date / Time No Known Allergies Allergy Verified 01/10/21 13:57 Review of Systems ROS Statement: Those systems with pertinent positive or pertinent negative responses have been documented in the HPI. ROS Other: All systems not noted in ROS Statement are negative. Limitations: ROS unobtainable due to patients medical condition Past Medical History Past Medical History: Chest Pain / Angina, Hypertension Additional Past Medical History / Comment(s): ETOH History of Any Multi-Drug Resistant Organisms: None Reported Past Surgical History: Orthopedic Surgery Additional Past Surgical History / Comment(s): Right knee surgery and salma placed in left femur, 3 surgeries on his eyes. Past Anesthesia/Blood Transfusion Reactions: No Reported Reaction Past Psychological History: Anxiety, Bipolar, Depression, Schizoaffective Disorder Smoking Status: Current every day smoker Past Alcohol Use History: Abuse, Daily, Heavy Past Drug Use History: None Reported - Past Family History Mother Additional Family Medical History / Comment(s): Mother at age 36 from motor vehicle accident. His father is also past but does not know the cause or his age. Patient has 3 brothers that are apparently without major medical problems. General Exam Limitations: altered mental status, physical limitation General appearance: alert, in no apparent distress, other (Patient sitting upright in bed. Patient refusing to talk.) Head exam: Present: atraumatic Eye exam: Present: normal appearance Neck exam: Present: normal inspection. Absent: tenderness Respiratory exam: Present: normal lung sounds bilaterally Cardiovascular Exam: Present: regular rate, normal rhythm GI/Abdominal exam: Present: soft. Absent: tenderness Extremities exam: Present: normal inspection Neurological exam: Present: alert Psychiatric exam: Present: flat affect Skin exam: Present: normal color Course Vital Signs 01/10/21 13:02 Temperature 98.6 F Pulse Rate 71 Respiratory 18 Rate Blood Pressure 124/88 O2 Sat by Pulse 97 Oximetry Medical Decision Making - Medical Decision Making Patient seen by mental health services with plans for transfer - Lab Data Result diagrams: 01/10/21 13:38 01/10/21 13:38 Lab Results 01/10/21 01/10/21 01/10/21 Range/Units 13:38 13:38 13:38 WBC 14.6 H (3.8-10.6) k/uL RBC 4.81 (4.30-5.90) m/uL Hgb 14.1 (13.0-17.5) gm/dL Hct 43.8 (39.0-53.0) % MCV 91.0 (80.0-100.0) fL MCH 29.3 (25.0-35.0) pg MCHC 32.2 (31.0-37.0) g/dL RDW 14.1 (11.5-15.5) % Plt Count 725 H (150-450) k/uL MPV 7.2 Neutrophils % 76 % Lymphocytes % 14 % Monocytes % 6 % Eosinophils % 2 % Basophils % 1 % Neutrophils # 11.1 H (1.3-7.7) k/uL Lymphocytes # 2.0 (1.0-4.8) k/uL Monocytes # 0.9 (0-1.0) k/uL Eosinophils # 0.3 (0-0.7) k/uL Basophils # 0.1 (0-0.2) k/uL Sodium 137 (137-145) mmol/L Potassium 5.5 H (3.5-5.1) mmol/L Chloride 107 (98-107) mmol/L Carbon Dioxide 22 (22-30) mmol/L Anion Gap 8 mmol/L BUN 5 L (9-20) mg/dL Creatinine 0.99 (0.66-1.25) mg/dL Est GFR (CKD-EPI)AfAm >90 (>60 ml/min/1.73 sqM) Est GFR (CKD-EPI)NonAf 85 (>60 ml/min/1.73 sqM) Glucose 86 (74-99) mg/dL Calcium 9.3 (8.4-10.2) mg/dL Urine Opiates Screen Not Detected (NotDetected) Ur Oxycodone Screen Not Detected (NotDetected) Urine Methadone Screen Not Detected (NotDetected) Ur Propoxyphene Screen Not Detected (NotDetected) Ur Barbiturates Screen Not Detected (NotDetected) U Tricyclic Antidepress Detected H (NotDetected) Ur Phencyclidine Scrn Not Detected (NotDetected) Ur Amphetamines Screen Not Detected (NotDetected) U Methamphetamines Scrn Not Detected (NotDetected) U Benzodiazepines Scrn Detected H (NotDetected) Urine Cocaine Screen Not Detected (NotDetected) U Marijuana (THC) Screen Not Detected (NotDetected) Serum Alcohol <10 mg/dL Disposition Clinical Impression: Depression, Suicidal ideation Disposition: TRANSFER TO PSYCH HOSP/UNIT Is patient prescribed a controlled substance at d/c from ED?: No Referrals: [facility] [Primary Care Provider] - 1-2 days Time of Disposition: 15:45
[2021-01-10 13:52] LABS: Basophils # (A) 0.1 k/uL (0-0.2); Basophils % (A) 1 %; Eosinophils # (A) 0.3 k/uL (0-0.7); Eosinophils % (A) 2 %; HCT 43.8 % (39.0-53.0); HGB 14.1 gm/dL (13.0-17.5); Lymphocytes % (A) 14 %; MCH 29.3 pg (25.0-35.0); MCHC 32.2 g/dL (31.0-37.0); Mean Platelet Volume 7.2; Monocytes # (A) 0.9 k/uL (0-1.0); Monocytes % (A) 6 %; Neutrophils # (A) 11.1 k/uL (1.3-7.7); Neutrophils % (A) 76 %; Platelet Count 725 k/uL (150-450); RBC 4.81 m/uL (4.30-5.90); RDW 14.1 % (11.5-15.5); WBC 14.6 k/uL (3.8-10.6)
[2021-01-10 13:59] LABS: African American GFR (CKD) >90 (>60 ml/min/1.73 sqM); Alcohol <10 mg/dL; Anion Gap 8 mmol/L; Blood Urea Nitrogen 5 mg/dL (9-20); Calcium 9.3 mg/dL (8.4-10.2); Carbon Dioxide 22 mmol/L (22-30); Chloride 107 mmol/L (98-107); Glucose 86 mg/dL (74-99); Non-African American GFR(CKD) 85 (>60 ml/min/1.73 sqM); Sodium 137 mmol/L (137-145)
[2021-01-10 14:02] LABS: Potassium 5.5 mmol/L (3.5-5.1)
[2021-01-10 15:18] LABS: Amphetamine Screen,Urine Not Detected (NotDetected); Cocaine Screen,Urine Not Detected (NotDetected); Opiate Screen,Urine Not Detected (NotDetected); Phencyclidine Screen,Urine Not Detected (NotDetected); Urn Cannabinoid Scrn Not Detected (NotDetected)
[2021-01-10 15:19] LABS: Barbiturate Screen,Urine Not Detected (NotDetected); Benzodiazepines Screen,Urine Detected (NotDetected); Methadone Screen, Urine Not Detected (NotDetected); Oxycodone Screen, Urine Not Detected (NotDetected); Tricyclic Antidepressant,Urine Detected (NotDetected)
[2021-01-10] MEDS ORDERED: LORazepam 2 MG/ML INJ IM STA (19:10)
[2021-01-10] MEDS ORDERED: THIAMINE 100 MG/ML 2 ML VIAL IM STA (19:12)
[2021-01-10] MEDS ORDERED: LORazepam 2 MG/ML INJ IV PRN ×3 (19:12)
[2021-01-10] MEDS ORDERED: NICOTINE 14MG/24HR PATCH TRANSDERM STA (19:13)
[2021-01-10] MEDS: THIAMINE 100 MG TAB PO SCH (20:15)
[2021-01-10] MEDS: MULTIVITAMINS, THERA 1 EACH TAB PO SCH (20:16)
[2021-01-11] MEDS ORDERED: NICOTINE 21MG/24HR PATCH TRANSDERM STA (10:03)
[2021-01-11] MEDS: MULTIVITAMINS, THERA 1 EACH TAB PO SCH (10:33)
[2021-01-11] MEDS: THIAMINE 100 MG TAB PO SCH ×2 (10:33→18:03)
[2021-01-11] MEDS ORDERED: MAG HYDROX/AL HYDROX/SIMETH 30 ML CUP PO PRN (16:50)
[2021-01-11] MEDS ORDERED: MAGNESIUM HYDROXIDE 2,400 MG/10 ML CUP PO PRN (16:50)
[2021-01-11] MEDS ORDERED: ACETAMINOPHEN TAB 325 MG TAB PO PRN (16:50)
[2021-01-11] MEDS ORDERED: LORazepam 2 MG/ML INJ IM PRN (16:53)
[2021-01-11] MEDS ORDERED: HALOPERIDOL LACTATE 5 MG/ML 1 ML VIAL IM PRN (16:53)
[2021-01-11] MEDS: NICOTINE 14MG/24HR PATCH TRANSDERM SCH (18:02)
[2021-01-11] MEDS: ATORVASTATIN 20 MG TAB PO SCH (20:34)
[2021-01-11] MEDS: LITHIUM CARBONATE 300 MG CAP PO SCH (20:34)
[2021-01-11] MEDS: QUEtiapine 400 MG TAB PO SCH (20:34)
[2021-01-11] MEDS: MIRTAZAPINE 15 MG TAB PO SCH (20:34)
--- NOTE | 2021-01-11 20:45 | P.CONS ---
History of Present Illness - Reason for Consult Consult date: 01/11/21 - History of Present Illness The patient is a 55 yo M, homeless with a PMH of EtOH abuse and HTN who was brought in by police after he was found walking into traffic and saying that he wanted to hurt himself. The patient was admitted to the [facility] where he was seen and evaluated. The patient notes that he is living at the longterm and continues to drink alcohol daily. Denied active complaints. Denied chest pain, SOB, fever, chills, abdominal pain, nausea, vomiting, or diarrhea. Laboratory evaluated was reviewed and was remarkable for leukocytosis of 14.6, plt 725, and Utox positive for TCA and Benzos. Review of Systems Pertinent positives and negatives as discussed in HPI, a complete review of systems was performed and all other systems are negative. Past Medical History Past Medical History: Chest Pain / Angina, Hypertension Additional Past Medical History / Comment(s): ETOH History of Any Multi-Drug Resistant Organisms: None Reported Past Surgical History: Orthopedic Surgery Additional Past Surgical History / Comment(s): Right knee surgery and salma placed in left femur, 3 surgeries on his eyes. Past Anesthesia/Blood Transfusion Reactions: No Reported Reaction Past Psychological History: Anxiety, Bipolar, Depression, Schizoaffective Disorder Smoking Status: Current every day smoker Past Alcohol Use History: Abuse, Daily, Heavy Additional Past Alcohol Use History / Comment(s): Patient states that he is a smoker one pack per day for 40 years. He states he smokes marijuana when he can get it. He drinks 6/7 beers a day. Patient is single and does not have any children. Patient is unemployment, homeless, and he is trying to get disability. Past Drug Use History: None Reported - Past Family History Mother Additional Family Medical History / Comment(s): Mother at age 36 from motor vehicle accident. His father is also past but does not know the cause or his age. Patient has 3 brothers that are apparently without major medical problems. Medications and Allergies Home Medications Medication Instructions Recorded Confirmed Type [place] Carbonate 600 mg PO HS@199901/22/19 01/11/21 History Mirtazapine 30 mg PO HS@199901/25/19 01/11/21 History QUEtiapine FUMARATE [SEROquel] 400 mg PO HS@199910/09/19 01/11/21 History amLODIPine [Norvasc] 5 mg PO DAILY@0701/02/20 01/11/21 History Artificial Tears-Hypromellose 1 drops BOTH EYES TID 01/09/21 01/11/21 History [Artificial Tear Drops] Atorvastatin [Lipitor] 20 mg PO HS@199901/09/21 01/11/21 History Ergocalciferol [Vitamin D2 (1250 1,250 mcg PO MO 01/09/21 01/11/21 History Mcg = 11815 Iu)] FLUoxetine HCL [PROzac] 60 mg PO DAILY@0701/09/21 01/11/21 History Omeprazole 20 mg PO DAILY@0701/09/21 01/11/21 History Allergies Allergy/AdvReac Type Severity Reaction Status Date / Time No Known Allergies Allergy Verified 01/11/21 17:27 Physical Exam Vitals: Vital Signs Temp Pulse Pulse Resp BP BP Pulse Ox 01/11/21 17:19 97.3 F L 84 18 118/82 96 01/11/21 16:41 98.7 F 87 18 116/76 98 01/11/21 07:16 98.4 F 93 18 127/85 95 01/11/21 06:30 72 18 102/52 96 01/10/21 21:53 72 16 98/54 96 Intake and Output 01/11/21 01/11/21 01/11/21 06:59 14:59 22:59 Other: Weight 65.3 kg General: non toxic, disheveled M, no distress, appears at stated age, normal weight Derm: no unusual rashes/lesions no unusual ecchymoses, warm, dry Head: atraumatic, normocephalic, symmetric Eyes: EOMI, no lid lag, anicteric sclera, pupils equal round reactive to light ENT: Nose and ears atraumatic, no thrush, no pharyngeal erythema Neck: No thyromegaly, no cervical lymphadenopathy, trachea midline, supple Mouth: no lip lesion, mucus membranes moist, poor dentition Cardiovascular: S1S2 reg, no murmur, positive posterior tibial pulse bilateral, no edema, capillary refill less than 2 seconds Lungs: CTA bilateral, no rhonchi, no rales , no accessory muscle use Abdominal: soft, nontender to palpation, no guarding, no appreciable organomegaly, normal bowel sounds Ext: no gross muscle atrophy, muscle strength 5 out of 5 in all 4 extremities grossly, no contractures, Neuro: CN II-XI grossly intact, light touch intact all 4 extremities, finger to nose within normal limits, Psych: Alert, oriented, appropriate affect Results CBC & Chem 7: 01/10/21 13:38 01/10/21 13:38 Assessment and Plan Plan: Tobacco and EtOH abuse -Advised on the importance of cessation -Nicotine patch prn -CIWA protocol -Thiamine qd HTN -C/w Norvasc Suicidal ideation -As per psychitry Thank you for allowing us to participate in the care of this patient. We will follow peripherally. Do not hesitate to contact us with questions. Someone can be reached from the [facility] hospitalist group at all hours of the day at [phone].
[2021-01-11] MEDS: ARTIFICIAL TEARS-HYPROMELLOSE DROPS 15 ML BTL BOTH EYES SCH (20:53)
[2021-01-12] MEDS: FLUoxetine HCL 20 MG CAP PO SCH ×2 (08:50→12:39)
[2021-01-12] MEDS: NICOTINE 14MG/24HR PATCH TRANSDERM SCH ×2 (08:50→12:41)
[2021-01-12] MEDS: MULTIVITAMINS, THERA 1 EACH TAB PO SCH ×2 (08:52→12:40)
[2021-01-12] MEDS: THIAMINE 100 MG TAB PO SCH ×3 (08:52→19:17)
[2021-01-12] MEDS: PANTOPRAZOLE 40 MG TABLET PO SCH ×2 (08:52→12:39)
[2021-01-12] MEDS: amLODIPine 5 MG TAB PO SCH ×2 (08:52→12:40)
--- NOTE | 2021-01-12 12:41 | P.HP ---
Psychiatric H&P - . H&P Date: 01/12/21 History & Physical: Allergies Allergy/AdvReac Type Severity Reaction Status Date / Time No Known Allergies Allergy Verified 01/11/21 17:27 Vital Signs Temp 97.3 F L 01/11/21 17:19 Pulse 84 01/11/21 17:19 Resp 18 01/11/21 17:19 BP 118/82 01/11/21 17:19 Pulse Ox 96 01/11/21 17:19 Intake & Output 01/11/21 01/12/21 01/12/21 18:59 06:59 18:59 Weight 65.3 kg Laboratory Last Values WBC 14.6 k/uL (3.8-10.6) H 01/10/21 13:38 RBC 4.81 m/uL (4.30-5.90) 01/10/21 13:38 Hgb 14.1 gm/dL (13.0-17.5) 01/10/21 13:38 Hct 43.8 % (39.0-53.0) 01/10/21 13:38 MCV 91.0 fL (80.0-100.0) 01/10/21 13:38 MCH 29.3 pg (25.0-35.0) 01/10/21 13:38 MCHC 32.2 g/dL (31.0-37.0) 01/10/21 13:38 RDW 14.1 % (11.5-15.5) 01/10/21 13:38 Plt Count 725 k/uL (150-450) H 01/10/21 13:38 MPV 7.2 01/10/21 13:38 Neutrophils % 76 % 01/10/21 13:38 Lymphocytes % 14 % 01/10/21 13:38 Monocytes % 6 % 01/10/21 13:38 Eosinophils % 2 % 01/10/21 13:38 Basophils % 1 % 01/10/21 13:38 Neutrophils # 11.1 k/uL (1.3-7.7) H 01/10/21 13:38 Lymphocytes # 2.0 k/uL (1.0-4.8) 01/10/21 13:38 Monocytes # 0.9 k/uL (0-1.0) 01/10/21 13:38 Eosinophils # 0.3 k/uL (0-0.7) 01/10/21 13:38 Basophils # 0.1 k/uL (0-0.2) 01/10/21 13:38 Sodium 137 mmol/L (137-145) 01/10/21 13:38 Potassium 5.5 mmol/L (3.5-5.1) H 01/10/21 13:38 Chloride 107 mmol/L (98-107) 01/10/21 13:38 Carbon Dioxide 22 mmol/L (22-30) 01/10/21 13:38 Anion Gap 8 mmol/L 01/10/21 13:38 BUN 5 mg/dL (9-20) L 01/10/21 13:38 Creatinine 0.99 mg/dL (0.66-1.25) 01/10/21 13:38 Est GFR (CKD-EPI)AfAm >90 (>60 ml/min/1.73 sqM) 01/10/21 13:38 Est GFR (CKD-EPI)NonAf 85 (>60 ml/min/1.73 sqM) 01/10/21 13:38 Glucose 86 mg/dL (74-99) 01/10/21 13:38 Calcium 9.3 mg/dL (8.4-10.2) 01/10/21 13:38 Urine Opiates Screen Not Detected (NotDetected) 01/10/21 13:38 Ur Oxycodone Screen Not Detected (NotDetected) 01/10/21 13:38 Urine Methadone Screen Not Detected (NotDetected) 01/10/21 13:38 Ur Propoxyphene Screen Not Detected (NotDetected) 01/10/21 13:38 Ur Barbiturates Screen Not Detected (NotDetected) 01/10/21 13:38 U Tricyclic Antidepress Detected (NotDetected) H 01/10/21 13:38 Ur Phencyclidine Scrn Not Detected (NotDetected) 01/10/21 13:38 Ur Amphetamines Screen Not Detected (NotDetected) 01/10/21 13:38 U Methamphetamines Scrn Not Detected (NotDetected) 01/10/21 13:38 U Benzodiazepines Scrn Detected (NotDetected) H 01/10/21 13:38 [place] 0.6 mmol/L 01/12/21 06:54 Urine Cocaine Screen Not Detected (NotDetected) 01/10/21 13:38 U Marijuana (THC) Screen Not Detected (NotDetected) 01/10/21 13:38 Serum Alcohol <10 mg/dL 01/10/21 13:38 Coronavirus (PCR) Not Detected (Not Detectd) 01/11/21 14:39 01/12/21 11:09 IDENTIFYING DATA: Patient is a single, unemployed, 55-year-old male with a significant history of depression and alcohol abuse was admitted for suicidal ideation with a plan to run into traffic HPI: Patient presented to the hospital on 01/10/2021 accompanied by police. Patient was reportedly trying to jump in front of traffic with threats of harming himself and others. When evaluated by EPS, the patient further stated that "I'd rather be . Life sucks then you ." He reported a plan to drink himself until he . Furthermore, the patient did endorse homicidal ideation thoughts to kill "everyone." At this time, the patient refused to elaborate further on the reasons for his admission. He is currently denying that he was trying to walk into traffic and is currently denying any suicidal or homicidal ideation, intention, and/or plan. He is very kaitlynn in his responses. He is not reporting any auditory or visual hallucinations. He is denying any paranoia or other delusions. The patient states that he would just like to be left alone at this time. Has had multiple visits to the emergency department for many reasons many of which included suicidal ideation. PAST PSYCHIATRIC HISTORY: Patient has been diagnosed with major depressive disorder, recurrent, severe, and alcohol use disorder, severe. The patient has had previous trials of medications including Neurontin, Ativan, Effexor, Cogentin, Lexapro, Haldol, Topamax, and Zoloft. His current regimen includes lithium, Remeron, Seroquel, and Prozac. This patient has had multiple inpatient psychiatric hospitalizations with the last one being in August 2017. He is currently open with [facility] and was last seen on 11/16/[address] Bernard. PMH: Past Medical History: Chest Pain / Angina, Hypertension Additional Past Medical History / Comment(s): ETOH History of Any Multi-Drug Resistant Organisms: None Reported Past Surgical History: Orthopedic Surgery Additional Past Surgical History / Comment(s): Right knee surgery and salma placed in left femur, 3 surgeries on his eyes. Past Anesthesia/Blood Transfusion Reactions: No Reported Reaction Past Psychological History: Anxiety, Bipolar, Depression, Schizoaffective Disorder Smoking Status: Current every day smoker Past Alcohol Use History: Abuse, Daily, Heavy Past Drug Use History: None Reported ALLERGIES: NO KNOWN DRUG ALLERGIES CHEMICAL DEPENDENCY HISTORY: The patient has significant history of alcohol use disorder. He has been to rehabilitation for alcohol use disorder at [facility] multiple times. He does not elaborate any further on his substance abuse at this time as he is uncooperative during the interview. FAMILY PSYCHIATRIC/SUBSTANCE USE HISTORY: As per chart review, father has been reported to be an alcoholic. SOCIAL HISTORY: Patient is reportedly living in an [facility] home as per medication review note from Dr Benrard. He is open to ACT services. He is single and never . He is currently unemployed. MENTAL STATUS EXAM: General Appearance: Patient covers himself with his bedsheet and refuses to show himself to this provider. Behavior: Patient is lying in bed without any agitated behavior. Eye contact is poor. Speech: Patient's speech is nonspontaneous, kaitlynn in his responses and minimal. Mood/Affect: Patient reports their mood is "okay," affect is irritable. Suicidality/Homicidality: Patient denies having any homicidal ideation intent or plan. Denies any suicidal ideations intent or plan Perceptions: Patient denies any visual hallucinations and denies any auditory hallucinations Though content/process: There is no evidence of any delusional thought content and thought process is linear and goal-directed. Memory and concentration: AOX3, grossly intact for the purposes of this session. Can spell "WORLD" backwards Judgment and insight: poor STRENGTHS/WEAKNESSES: Strength is that the patient has housing. Weakness is that the patient has significant substance abuse history and has severe mental illness with multiple inpatient psychiatric admissions. INTELLECT: average IMPRESSIONS: Major depressive disorder, recurrent, severe Alcohol use disorder, severe PLAN: -Patient is admitted under involuntary status to [facility] for stabilization of psychiatric symptoms and safety. A second certification was completed and along with petition will be filed for court. -Medications : Will start patient on His home medications of Prozac 60 mg by mouth daily, lithium 600 mg at bedtime, Remeron 30 mg at bedtime, and Seroquel 400 mg at bedtime. -Ativan and Haldol PRN for agitation/aggression -Started thiamine, MVM for etoh use -CIWA protocol with Ativan PRN for ETOH withdrawal -Patient was counselled on substance abuse and desired to cut back on use -Patient was informed of the risks, benefits and side effects of the medication and patient verbally consented to taking the medications. Patient signed med consent form and was placed in chart. -Internal Medicine consult to perform medical evaluation and physical. -NRT - nicotine patch -SW on board for discharge planning. Encourage patient to participate in groups to work on coping skills. 01/12/21 12:37
[2021-01-12] MEDS: ARTIFICIAL TEARS-HYPROMELLOSE DROPS 15 ML BTL BOTH EYES SCH ×3 (12:43→21:03)
[2021-01-12] MEDS: haloperidoL 5 MG TAB PO PRN (18:09)
[2021-01-12] MEDS: LORazepam 1 MG TAB PO PRN (18:09)
[2021-01-12] MEDS: ATORVASTATIN 20 MG TAB PO SCH (20:43)
[2021-01-12] MEDS: LITHIUM CARBONATE 300 MG CAP PO SCH (20:43)
[2021-01-12] MEDS: QUEtiapine 400 MG TAB PO SCH (20:44)
[2021-01-12] MEDS: MIRTAZAPINE 15 MG TAB PO SCH (20:44)
[2021-01-13] MEDS: NICOTINE 14MG/24HR PATCH TRANSDERM SCH (08:16)
[2021-01-13] MEDS: MULTIVITAMINS, THERA 1 EACH TAB PO SCH (08:16)
[2021-01-13] MEDS: amLODIPine 5 MG TAB PO SCH (08:16)
[2021-01-13] MEDS: THIAMINE 100 MG TAB PO SCH ×2 (08:16→17:56)
[2021-01-13] MEDS: FLUoxetine HCL 20 MG CAP PO SCH (08:16)
[2021-01-13] MEDS: PANTOPRAZOLE 40 MG TABLET PO SCH (08:16)
[2021-01-13] MEDS: ARTIFICIAL TEARS-HYPROMELLOSE DROPS 15 ML BTL BOTH EYES SCH ×3 (08:19→21:04)
--- NOTE | 2021-01-13 11:01 | P.PN ---
Progress Note - Text Progress Note Date: 01/13/21 Interval History: Patient was seen resting in bed and was directable and agreeable to speak with the sql report writer in his room. The patient continues to endorse significant symptoms of depression. He remains primarily supportive to himself in his room. He only steps out of his room for his medications and to eat meals. He is currently endorsing suicidal ideation with thoughts of walking into traffic. He denies any homicidal ideation, intention, and/or plan. He is not reporting any auditory or visual hallucinations. He is denying any paranoia or other delusions. Patient states that his primary stressors are his finances and his lack of housing. The patient explains that he does not want to return to his previous home. He has been adherent with his medications but feels that they are not working. Mental Status Exam: General Appearance: Patient appears to be stated age is alert, directable, and cooperative. He appears to be disheveled. Behavior: Patient is without any agitated behavior. Patient remains lying in bed with intermittent eye contact. Speech: Patient's speech is fluent and nonpressured. Nonspontaneous. Mood/Affect: Mood is depressed, affect is irritable. Suicidality/Homicidality: Patient endorses suicidal ideation, intention and plan but no homicidal ideation, intention, or plan. Perceptions: Patient denies any visual hallucinations and denies any auditory hallucinations Though content/process: There is no evidence of any delusional thought content and thought process is linear and goal-directed. Memory and concentration: AOX3, grossly intact for the purposes of this session Judgment and insight: Poor Assessment Major depressive disorder, recurrent, severe Alcohol use disorder, severe Plan: -Patient continues to meet criteria for inpatient psychiatric admission for symptom stabilization and safety. The patient has been petitioned and certified. -Medications: [place] 600 mg by mouth at bedtime for mood stabilization Remeron 30 mg by mouth at bedtime for insomnia/depression Seroquel 400 mg by mouth at bedtime for mood augmentation/psychosis/insomnia Decrease Prozac to 40 mg daily. We will slowly taper and then start SNRI or TCA medication for depression. -When necessary Ativan and Haldol for agitation/aggression. -NRT - nicotine patch -SW on board for discharge planning. Encouraged the patient to participate in milieu.
[2021-01-13] MEDS: ATORVASTATIN 20 MG TAB PO SCH (20:41)
[2021-01-13] MEDS: LITHIUM CARBONATE 300 MG CAP PO SCH (20:41)
[2021-01-13] MEDS: MIRTAZAPINE 15 MG TAB PO SCH (20:42)
[2021-01-13] MEDS: QUEtiapine 400 MG TAB PO SCH (20:42)
[2021-01-14] MEDS: NICOTINE 14MG/24HR PATCH TRANSDERM SCH (08:51)
[2021-01-14] MEDS: amLODIPine 5 MG TAB PO SCH (08:51)
[2021-01-14] MEDS: ARTIFICIAL TEARS-HYPROMELLOSE DROPS 15 ML BTL BOTH EYES SCH ×3 (08:52→20:04)
[2021-01-14] MEDS: FLUoxetine HCL 20 MG CAP PO SCH (08:52)
[2021-01-14] MEDS: PANTOPRAZOLE 40 MG TABLET PO SCH (08:52)
[2021-01-14] MEDS: MULTIVITAMINS, THERA 1 EACH TAB PO SCH (08:52)
[2021-01-14] MEDS: THIAMINE 100 MG TAB PO SCH ×2 (08:52→16:57)
--- NOTE | 2021-01-14 09:23 | P.PN ---
Progress Note - Text Progress Note Date: 01/14/21 Interval History: Patient was seen resting in bed and was directable and agreeable to speak with the display card writer in his room. Patient reports he is feeling better and ready to go home. He rates his depression 5/10 in severity with 10 being very severe. He states his primary concern is his alcohol use which he engages in because he does not like his living situation. He reports he was once in solitary confinement when he was incarcerated and is not used to living with others and would like his own apartment. He was informed that there are limited resources in the community and he will have to make do with what is available. He states he is less concerned with his suicidal behavior. He reports he engages in this behavior in order to get himself into the psychiatric unit so that he can "start fresh and get the ball rolling with stuff I need." He is currently denying any suicidal or homicidal ideation, intention,/or plan. He is not reporting any auditory or visual hallucinations. He reports no significant issues with sleep or appetite. He has been adherent with his medications and is not reporting any significant side effects at this time. Mental Status Exam: General Appearance: Patient appears to be stated age is alert, directable, and cooperative. He appears to be disheveled. He is wearing glasses. Behavior: Patient is without any agitated behavior. Patient has good eye contact. Normal psychomotor activity. Speech: Patient's speech is fluent and nonpressured. Nonspontaneous. Mood/Affect: Mood is feeling better, affect is constricted and somewhat irritable. Suicidality/Homicidality: Patient is denying suicidal or homicidal ideation, intention, and/or plan. Perceptions: Patient denies any visual hallucinations and denies any auditory hallucinations Though content/process: There is no evidence of any delusional thought content and thought process is linear and goal-directed. Memory and concentration: AOX3, grossly intact for the purposes of this session Judgment and insight: Poor Assessment Major depressive disorder, recurrent, severe Alcohol use disorder, severe Plan: -Patient continues to meet criteria for inpatient psychiatric admission for symptom stabilization and safety. The patient has been petitioned and certified. -Medications: Increase [place] to 900 mg by mouth at bedtime for mood stabilization Remeron 30 mg by mouth at bedtime for insomnia/depression Seroquel 400 mg by mouth at bedtime for mood augmentation/psychosis/insomnia Decrease Prozac to 40 mg daily. -When necessary Ativan and Haldol for agitation/aggression. -NRT - nicotine patch -SW on board for discharge planning. Encouraged the patient to participate in milieu.
[2021-01-14] MEDS: ATORVASTATIN 20 MG TAB PO SCH (20:06)
[2021-01-14] MEDS: LITHIUM CARBONATE 300 MG CAP PO SCH (20:06)
[2021-01-14] MEDS: QUEtiapine 400 MG TAB PO SCH (20:06)
[2021-01-14] MEDS: MIRTAZAPINE 15 MG TAB PO SCH (20:06)
[2021-01-15] MEDS: amLODIPine 5 MG TAB PO SCH (09:11)
[2021-01-15] MEDS: FLUoxetine HCL 20 MG CAP PO SCH (09:11)
[2021-01-15] MEDS: PANTOPRAZOLE 40 MG TABLET PO SCH (09:12)
[2021-01-15] MEDS: THIAMINE 100 MG TAB PO SCH ×2 (09:12→16:32)
[2021-01-15] MEDS: ARTIFICIAL TEARS-HYPROMELLOSE DROPS 15 ML BTL BOTH EYES SCH ×3 (09:13→21:28)
[2021-01-15] MEDS: LORazepam 1 MG TAB PO PRN (10:21)
--- NOTE | 2021-01-15 13:11 | P.PN ---
Progress Note - Text Progress Note Date: 01/15/21 Patient admitted to the hospital on 01/10/2021 accompanied by police. Patient was reportedly trying to jump in front of traffic with threats of harming himself and others. When evaluated by EPS, the patient further stated that "I'd rather be . Life sucks then you ." Patient continues to be irritable and depressed. He speaks in a very low monotonous voice. He was laying in the bed and has papers scattered all around his room. This patient has psychomotor retardation, is quiet and does not interact with his peers and continues to be a risk to himself. He will be maintained on medication and in the milieu.
[2021-01-15] MEDS: LITHIUM CARBONATE 300 MG CAP PO SCH (21:24)
[2021-01-15] MEDS: MIRTAZAPINE 15 MG TAB PO SCH (21:24)
[2021-01-15] MEDS: ATORVASTATIN 20 MG TAB PO SCH (21:24)
[2021-01-15] MEDS: QUEtiapine 400 MG TAB PO SCH (21:24)
[2021-01-16] MEDS: NICOTINE 14MG/24HR PATCH TRANSDERM SCH (08:35)
[2021-01-16] MEDS: FLUoxetine HCL 20 MG CAP PO SCH (08:36)
[2021-01-16] MEDS: THIAMINE 100 MG TAB PO SCH ×2 (08:36→17:19)
[2021-01-16] MEDS: PANTOPRAZOLE 40 MG TABLET PO SCH (08:36)
[2021-01-16] MEDS: MULTIVITAMINS, THERA 1 EACH TAB PO SCH (08:36)
[2021-01-16] MEDS: ARTIFICIAL TEARS-HYPROMELLOSE DROPS 15 ML BTL BOTH EYES SCH ×3 (08:37→21:21)
[2021-01-16] MEDS: amLODIPine 5 MG TAB PO SCH (08:38)
--- NOTE | 2021-01-16 11:47 | P.PN ---
Progress Note - Text Progress Note Date: 01/16/21 Patient was reportedly trying to jump in front of traffic with threats of staton rming himself and others. When evaluated by EPS, the patient further stated that "I'd rather be . Life sucks then you ." He reported a plan to drink himself until he . Furthermore, the patient did endorse homicidal ideation thoughts to kill "everyone." The patient was seen in his room and he keeps laying in the bed with the papers all over his room. He stated he is under his sheets and needs a lot of prompting to come out of the room. This patient is still depressed and continues to show severe symptoms of depression.
[2021-01-16] MEDS: LORazepam 1 MG TAB PO PRN (14:58)
[2021-01-16] MEDS: haloperidoL 5 MG TAB PO PRN (14:58)
[2021-01-16] MEDS: LITHIUM CARBONATE 300 MG CAP PO SCH (20:41)
[2021-01-16] MEDS: MIRTAZAPINE 15 MG TAB PO SCH (20:41)
[2021-01-16] MEDS: ATORVASTATIN 20 MG TAB PO SCH (20:41)
[2021-01-16] MEDS: QUEtiapine 400 MG TAB PO SCH (20:41)
[2021-01-17 07:21] VITALS: TEMP 97.9
[2021-01-17] MEDS: MULTIVITAMINS, THERA 1 EACH TAB PO SCH (08:29)
[2021-01-17] MEDS: PANTOPRAZOLE 40 MG TABLET PO SCH (08:29)
[2021-01-17] MEDS: FLUoxetine HCL 20 MG CAP PO SCH (08:29)
[2021-01-17] MEDS: amLODIPine 5 MG TAB PO SCH (08:29)
[2021-01-17] MEDS: THIAMINE 100 MG TAB PO SCH (08:29)
[2021-01-17] MEDS: NICOTINE 14MG/24HR PATCH TRANSDERM SCH (08:30)
[2021-01-17] MEDS: ARTIFICIAL TEARS-HYPROMELLOSE DROPS 15 ML BTL BOTH EYES SCH (08:30)
[2021-01-17 08:37] VITALS: BP 93/57; PULSE 89; RESP 16
--- NOTE | 2021-01-17 11:09 | P.DS ---
Providers Date of admission: 01/11/21 16:42 Expected date of discharge: 01/17/21 Attending physician: Geo Santoyo MD Consults: 01/11/21 16:52 Consult Physician Routine Consulting Provider: Irwin Pro Consult Reason/Comments: H&P and medical Do you want consulting provider notified?: Yes Primary care physician: [facility] Diagnosis(es) (1) Major depression Current Visit: Yes Status: Acute Priority: High (2) Nicotine dependence Current Visit: Yes Status: Chronic Priority: Medium (3) Alcohol dependence Current Visit: No Status: Chronic Priority: Medium Hospital Course: Admission HPI: Patient is a single, unemployed, 55-year-old male with a significant history of depression and alcohol abuse was admitted for suicidal ideation with a plan to run into traffic Patient presented to the hospital on 01/10/2021 accompanied by police. Patient was reportedly trying to jump in front of traffic with threats of harming himself and others. When evaluated by EPS, the patient further stated that "I'd rather be . Life sucks then you ." He reported a plan to drink himself until he . Furthermore, the patient did endorse homicidal ideation thoughts to kill "everyone." At this time, the patient refused to elaborate further on the reasons for his admission. He is currently denying that he was trying to walk into traffic and is currently denying any suicidal or homicidal ideation, intention, and/or plan. He is very kaitlynn in his responses. He is not reporting any auditory or visual hallucinations. He is denying any paranoia or other delusions. The patient states that he would just like to be left alone at this time. Has had multiple visits to the emergency department for many reasons many of which included suicidal ideation. Hospital course: Upon admission to the unit patient was initially very guarded and uncooperative. Second clinical certificate was filled out due to the patient's presentation and suicidal ideation. The patient was restarted on his home medications of Prozac, lithium, Remeron, and Seroquel. The patient was more cooperative the following day. He stated that he was not suicidal and that he only makes statements and acceptance such way so that he may find himself admitted into the psychiatric unit to give himself a break from his current housing situation. The patient maintains that he is "antisocial" due to his periods of isolation while he was incarcerated. He states that because of this it is difficult for him to interact with others and that his current living situation he is forced to causing him significant distress. The patient deferred mental health court and was agreeable to continue mental health treatment. Over the course of the hospitalization, the patient was adherent with his medications and gradually improved in his mood, hygiene, participation in milieu activities, and reported no suicidal or homicidal ideation or intention. On the day of discharge, the patient is not reporting any suicidal or homicidal ideation, intention, and/or plan. He is not reporting any auditory or visual hallucinations. He is denying any paranoia or other delusions. He is future oriented stating that he is looking forward to finding his own place eventually. He denies any access to firearms or other weapons. The patient does have significant history of substance abuse however was counseled on abstaining from all substances including alcohol and marijuana. The patient was counseled on his medications and the need for regular compliance and was encouraged to follow-up with his outpatient appointments for mental health and for primary care. The patient's lithium was titrated to a final dose of 900 mg at bedtime but his lithium level was determined to be 1.1 and therefore his lithium was decreased on discharge to 750 mg at bedtime. He has been adherent with his medications is not reporting any significant side effects today. Mental status exam: General Appearance: Patient appears to be stated age is alert, pleasant, and c ooperative. Patient is in no acute distress and has fair hygiene and grooming. Poor dentition. Behavior: Patient is calmly seated without any agitated behavior. Normal psychomotor activity. Speech: Patient's speech is fluent and nonpressured. Spontaneous, with normal rate, tone, volume. Mood/Affect: Patient reports their mood is "much better", affect is congruent and euthymic. Suicidality/Homicidality: Patient denies having any suicidal or homicidal ideation intent or plan. Perceptions: Patient denies any auditory or visual hallucinations. Though content/process: There is no evidence of any delusional thought content and thought process is linear and goal-directed. The patient is future oriented. Memory and concentration: AOX3, grossly intact for the purposes of this session. Can spell "WORLD" backwards correctly. Judgment and insight: Improved with guarded prognosis Impression: Major depressive disorder, recurrent, severe Alcohol use disorder, severe Nicotine Dependence Plan: -Continue with discharge today as patient has improved and stabilized psychiatrically and is not currently an imminent threat to himself and/or others. Patient will remain at chronically elevated risk for harm to self and/or others due to his impulsivity and alcohol abuse. -Continue medications: Seroquel 400 mg by mouth at bedtime for mood stabilization/mood augmentation [place] 750 mg by mouth at bedtime for suicidalityimpulsivity Prozac 40 mg by mouth daily for depression/anxiety Remeron 30 mg by mouth at bedtime for depression/insomnia Nicotine replacement therapy patches -Patient was counseled on the need for medication compliance and appropriate follow-up at mental health and also primary care for medical issues. Patient verbalized understanding and agreed. -Social work to arrange for and conduct family meeting to ensure safety upon discharge and answer any questions/concerns. Social work also to arrange for patients follow up appointments with [facility] for psychiatric care along with follow up with primary care provider. -Patient counseled on abstaining from recreational drugs and marijuana and alcohol. Was informed/educated on the adverse effects on their physical and ment al health. Patient verbally agreed and understood. Patient was offered substance abuse treatment however declined at this time. -Patient was instructed to return to the hospital or seek immediate medical care if their psychiatric or medical symptoms do worsen or reoccur. -Psychoeducation and supportive therapy provided to patient. Risks and benefits of pharmacological treatment versus the risks and benefits of nontreatment weight and discussed. Informed consent discussion held. Common side effects of psychotropics discussed such as, but not limited to headache, GI disturbance, sexual dysfunction, movement disorders, sedation, and orthostatic hypotension. Life threatening and blackbox warnings of prescribed medications also discussed. Potential risks of operating a vehicle or heavy machinery discussed with patient at length. Advised on importance of compliance and a reliable and responsible manner. Patient advised to review FDA consumer labeling of all medications prior to taking. Patient verbalized understanding of potential risks, and agrees with current treatment plan. Patient advised to medically contact physician/emergency personnel if any acute changes in condition occur. Vital Signs Temp 97.9 F 01/17/21 07:21 Pulse 89 01/17/21 08:30 Resp 16 01/17/21 08:30 BP 93/57 01/17/21 08:30 Pulse Ox 96 03/30/21 17:19 Intake & Output 01/16/21 01/17/21 01/17/21 18:59 06:59 18:59 Weight 66.3 kg Laboratory Results WBC 14.6 k/uL (3.8-10.6) H 01/10/21 13:38 RBC 4.81 m/uL (4.30-5.90) 01/10/21 13:38 Hgb 14.1 gm/dL (13.0-17.5) 01/10/21 13:38 Hct 43.8 % (39.0-53.0) 01/10/21 13:38 MCV 91.0 fL (80.0-100.0) 01/10/21 13:38 MCH 29.3 pg (25.0-35.0) 01/10/21 13:38 MCHC 32.2 g/dL (31.0-37.0) 01/10/21 13:38 RDW 14.1 % (11.5-15.5) 01/10/21 13:38 Plt Count 725 k/uL (150-450) H 01/10/21 13:38 MPV 7.2 01/10/21 13:38 Neutrophils % 76 % 01/10/21 13:38 Lymphocytes % 14 % 01/10/21 13:38 Monocytes % 6 % 01/10/21 13:38 Eosinophils % 2 % 01/10/21 13:38 Basophils % 1 % 01/10/21 13:38 Neutrophils # 11.1 k/uL (1.3-7.7) H 01/10/21 13:38 Lymphocytes # 2.0 k/uL (1.0-4.8) 01/10/21 13:38 Monocytes # 0.9 k/uL (0-1.0) 01/10/21 13:38 Eosinophils # 0.3 k/uL (0-0.7) 01/10/21 13:38 Basophils # 0.1 k/uL (0-0.2) 01/10/21 13:38 Sodium 137 mmol/L (137-145) 01/10/21 13:38 Potassium 5.5 mmol/L (3.5-5.1) H 01/10/21 13:38 Chloride 107 mmol/L (98-107) 01/10/21 13:38 Carbon Dioxide 22 mmol/L (22-30) 01/10/21 13:38 Anion Gap 8 mmol/L 01/10/21 13:38 BUN 5 mg/dL (9-20) L 01/10/21 13:38 Creatinine 0.99 mg/dL (0.66-1.25) 01/10/21 13:38 Est GFR (CKD-EPI)AfAm >90 (>60 ml/min/1.73 sqM) 01/10/21 13:38 Est GFR (CKD-EPI)NonAf 85 (>60 ml/min/1.73 sqM) 01/10/21 13:38 Glucose 86 mg/dL (74-99) 01/10/21 13:38 Calcium 9.3 mg/dL (8.4-10.2) 01/10/21 13:38 Urine Opiates Screen Not Detected (NotDetected) 01/10/21 13:38 Ur Oxycodone Screen Not Detected (NotDetected) 01/10/21 13:38 Urine Methadone Screen Not Detected (NotDetected) 01/10/21 13:38 Ur Propoxyphene Screen Not Detected (NotDetected) 01/10/21 13:38 Ur Barbiturates Screen Not Detected (NotDetected) 01/10/21 13:38 U Tricyclic Antidepress Detected (NotDetected) H 01/10/21 13:38 Ur Phencyclidine Scrn Not Detected (NotDetected) 01/10/21 13:38 Ur Amphetamines Screen Not Detected (NotDetected) 01/10/21 13:38 U Methamphetamines Scrn Not Detected (NotDetected) 01/10/21 13:38 U Benzodiazepines Scrn Detected (NotDetected) H 01/10/21 13:38 [place]uffs 1.1 mmol/L 01/16/21 07:49 Urine Cocaine Screen Not Detected (NotDetected) 01/10/21 13:38 U Marijuana (THC) Screen Not Detected (NotDetected) 01/10/21 13:38 Serum Alcohol <10 mg/dL 01/10/21 13:38 Coronavirus (PCR) Not Detected (Not Detectd) 01/11/21 14:39 Allergies Allergy/AdvReac Type Severity Reaction Status Date / Time No Known Allergies Allergy Verified 01/11/21 17:27 Patient Condition at Discharge: Stable Plan - Discharge Summary Discharge Rx Participant: No New Discharge Prescriptions: New Atorvastatin [Lipitor] 20 mg PO HS@1999 30 Days tab amLODIPine [Norvasc] 5 mg PO DAILY@0700 30 Days tab QUEtiapine [SEROquel] 400 mg PO HS@1999 30 Days tab Nicotine 14Mg/24Hr Patch [Habitrol] 1 patch TRANSDERM DAILY 30 Days patch [place] Carbonate 750 mg PO HS@1999 30 Days cap FLUoxetine HCL [PROzac] 40 mg PO DAILY@0700 30 Days cap Mirtazapine [Remeron] 30 mg PO HS@1999 30 Days tab Continue Ergocalciferol [Vitamin D2 (1250 Mcg = 45665 Iu)] 1,250 mcg PO MO Artificial Tears-Hypromellose [Artificial Tear Drops] 1 drops BOTH EYES TID Omeprazole 20 mg PO DAILY@0700 Discontinued [place] Carbonate 600 mg PO HS@1999 Mirtazapine 30 mg PO HS@1999 QUEtiapine FUMARATE [SEROquel] 400 mg PO HS@1999 amLODIPine [Norvasc] 5 mg PO DAILY@07 Atorvastatin [Lipitor] 20 mg PO HS@1999 FLUoxetine HCL [PROzac] 60 mg PO DAILY@0700 Discharge Medication List Artificial Tears-Hypromellose [Artificial Tear Drops] 1 drops BOTH EYES TID 01/09/21 [History] Ergocalciferol [Vitamin D2 (1250 Mcg = 40026 Iu)] 1,250 mcg PO MO 01/09/21 [History] Omeprazole 20 mg PO DAILY@0700 01/09/21 [History] Atorvastatin [Lipitor] 20 mg PO HS@1999 30 Days tab 01/17/21 [Rx] FLUoxetine HCL [PROzac] 40 mg PO DAILY@0700 30 Days cap 01/17/21 [Rx] [place] Carbonate 750 mg PO HS@1999 30 Days cap 01/17/21 [Rx] Mirtazapine [Remeron] 30 mg PO HS@1999 30 Days tab 01/17/21 [Rx] Nicotine 14Mg/24Hr Patch [Habitrol] 1 patch TRANSDERM DAILY 30 Days patch 01/17/21 [Rx] QUEtiapine [SEROquel] 400 mg PO HS@1999 30 Days tab 01/17/21 [Rx] amLODIPine [Norvasc] 5 mg PO DAILY@0700 30 Days tab 01/17/21 [Rx] Follow up Appointment(s)/Referral(s): [facility] [Primary Care Provider] - 1-2 days Activity/Diet/Wound Care/Special Instructions: Activity and diet as tolerated. Avoid the use of street drugs and alcohol. Take all medications as prescribed. When you are in need of refills on your medications please contact your medical provider and/or outpatient psychiatrist to have this done. Please go to scheduled outpatient appointment for aftercare treatment. If symptoms return or become worse, call the crisis line at and/or go to the nearest emergency room for evaluation.
[2021-01-17] MEDS: LORazepam 1 MG TAB PO PRN (11:16)
[2021-01-17] MEDS ORDERED: ERGOCALCIFEROL 1,250 MCG (50,000 IU) CAPSULE PO SCH (16:49)
== END 2021-01-17 13:25 | disposition home or self-care (01) | DRG 885 ==
LOC: EC 12:17 → 3MHU 01-11 16:42
PROVIDERS: ADMIT Psychiatry & Neurology Psychiatry; ATTEND Psychiatry & Neurology Psychiatry
DX: F33.2 Major depressive disorder, recurrent severe without psychotic features (principal); R45.851 Suicidal ideations; F25.9 Schizoaffective disorder, unspecified; F31.9 Bipolar disorder, unspecified; F41.9 Anxiety disorder, unspecified; F17.200 Nicotine dependence, unspecified, uncomplicated; Z20.822 Contact with and (suspected) exposure to COVID-19; F10.20 Alcohol dependence, uncomplicated; D72.829 Elevated white blood cell count, unspecified; G47.00 Insomnia, unspecified; I10 Essential (primary) hypertension; R45.850 Homicidal ideations; Z56.0 Unemployment, unspecified; Z59.0 Homelessness; Z79.899 Other long term (current) drug therapy
CPT/HCPCS: 36415; 80048; 80178; 80306; 80320; 85025; 87635; 99285

== ENCOUNTER 2021-01-19 19:58 | Emergency (ER) | payer OTHER ==
--- NOTE | 2021-01-19 21:57 | ED ---
Psych HPI - General Stated Complaint: Petition Time Seen by Provider: 01/19/21 21:23 Source: RN notes reviewed, old records reviewed Limitations: no limitations - History of Present Illness Initial Comments: this is a 55-year-old male DF for evaluation today. Patient presents under petition for evaluation of psychiatric illness. Patient has history of substance abuse and psychiatric illness presented for evaluation regarding Depression. MD Complaint: suicidal ideation, feels depressed -: year(s) Associated Psychiatric Symptoms: depression, suicidal ideation History of same: Yes Quality: constant Improves With: none, medication Context: recent alcohol abuse, recent drug abuse Associated Symptoms: denies other symptoms Treatments Prior to Arrival: placed on mental health hold If Self Harm: admits thoughts of self harm - Related Data Home Medications Medication Instructions Recorded Confirmed Artificial Tears-Hypromellose 1 drops BOTH EYES TID 01/09/21 01/19/21 [Artificial Tear Drops] Ergocalciferol [Vitamin D2 (1250 1,250 mcg PO MO 01/09/21 01/19/21 Mcg = 92437 Iu)] Omeprazole 20 mg PO DAILY 01/09/21 01/19/21 Atorvastatin [Lipitor] 20 mg PO HS 01/19/21 01/19/21 FLUoxetine HCL [PROzac] 40 mg PO DAILY 01/19/21 01/19/21 [place] Carbonate [Lithobid] 750 mg PO HS 01/19/21 01/19/21 Mirtazapine [Remeron] 30 mg PO HS 01/19/21 01/19/21 QUEtiapine [SEROquel] 400 mg PO HS 01/19/21 01/19/21 amLODIPine [Norvasc] 5 mg PO DAILY 01/19/21 01/19/21 Previous Rx's Medication Instructions Recorded Nicotine 14Mg/24Hr Patch [Habitrol] 1 patch TRANSDERM DAILY 30 Days 01/17/21 patch Allergies Allergy/AdvReac Type Severity Reaction Status Date / Time No Known Allergies Allergy Verified 01/19/21 23:03 Review of Systems ROS Statement: Those systems with pertinent positive or pertinent negative responses have been documented in the HPI. ROS Other: All systems not noted in ROS Statement are negative. Past Medical History Past Medical History: Chest Pain / Angina, Hypertension Additional Past Medical History / Comment(s): ETOH History of Any Multi-Drug Resistant Organisms: None Reported Past Surgical History: Orthopedic Surgery Additional Past Surgical History / Comment(s): Right knee surgery and salma placed in left femur, 3 surgeries on his eyes. Past Anesthesia/Blood Transfusion Reactions: No Reported Reaction Past Psychological History: Anxiety, Bipolar, Depression, Schizoaffective Disorder Smoking Status: Current every day smoker Past Alcohol Use History: Abuse, Daily, Heavy Additional Past Alcohol Use History / Comment(s): Patient states that he is a smoker one pack per day for 40 years. He states he smokes marijuana when he can get it. He drinks 6/7 beers a day. Patient is single and does not have any children. Patient is unemployment, homeless, and he is trying to get disability. Past Drug Use History: None Reported - Past Family History Mother Additional Family Medical History / Comment(s): Mother at age 36 from motor vehicle accident. His father is also past but does not know the cause or his age. Patient has 3 brothers that are apparently without major medical problems. General Exam General appearance: alert, in no apparent distress Head exam: Present: atraumatic, normocephalic, normal inspection Eye exam: Present: normal appearance, PERRL, EOMI. Absent: scleral icterus, conjunctival injection, periorbital swelling ENT exam: Present: normal exam, mucous membranes moist Neck exam: Present: normal inspection. Absent: tenderness, meningismus, lymphadenopathy Respiratory exam: Present: normal lung sounds bilaterally. Absent: respiratory distress, wheezes, rales, rhonchi, stridor Cardiovascular Exam: Present: regular rate, normal rhythm, normal heart sounds. Absent: systolic murmur, diastolic murmur, rubs, gallop, clicks GI/Abdominal exam: Present: soft, normal bowel sounds. Absent: distended, tenderness, guarding, rebound, rigid Extremities exam: Present: normal inspection, full ROM, normal capillary refill. Absent: tenderness, pedal edema, joint swelling, calf tenderness Back exam: Present: normal inspection Neurological exam: Present: alert, oriented X3, CN II-XII intact Psychiatric exam: Present: normal affect, normal mood Skin exam: Present: warm, dry, intact, normal color. Absent: rash Course Vital Signs 01/19/21 22:23 Temperature 98 F Pulse Rate 82 Respiratory 18 Rate Blood Pressure 139/83 O2 Sat by Pulse 94 L Oximetry - Reevaluation(s) Reevaluation #1: 01/19/21 21:57 Medical records reviewed Medical Decision Making - Medical Decision Making 55 male who is intoxicated seen and evaluated by psychiatry and can be discharged home - Lab Data Lab Results 01/20/21 Range/Units 00:22 Urine Opiates Screen Not Detected (NotDetected) Ur Oxycodone Screen Not Detected (NotDetected) Urine Methadone Screen Not Detected (NotDetected) Ur Propoxyphene Screen Not Detected (NotDetected) Ur Barbiturates Screen Not Detected (NotDetected) U Tricyclic Antidepress Detected H (NotDetected) Ur Phencyclidine Scrn Not Detected (NotDetected) Ur Amphetamines Screen Not Detected (NotDetected) U Methamphetamines Scrn Not Detected (NotDetected) U Benzodiazepines Scrn Detected H (NotDetected) Urine Cocaine Screen Not Detected (NotDetected) U Marijuana (THC) Screen Not Detected (NotDetected) Disposition Clinical Impression: Depression, Mood disorder, Alcohol abuse Disposition: HOME SELF-CARE Condition: Fair Instructions (If sedation given, give patient instructions): Depression (ED) Is patient prescribed a controlled substance at d/c from ED?: No Referrals: [facility] [Primary Care Provider] - 1-2 days
[2021-01-19 22:31] VITALS: RESP 18
[2021-01-20 02:01] LABS: Amphetamine Screen,Urine Not Detected (NotDetected); Barbiturate Screen,Urine Not Detected (NotDetected); Benzodiazepines Screen,Urine Detected (NotDetected); Cocaine Screen,Urine Not Detected (NotDetected); Methadone Screen, Urine Not Detected (NotDetected); Opiate Screen,Urine Not Detected (NotDetected); Oxycodone Screen, Urine Not Detected (NotDetected); Phencyclidine Screen,Urine Not Detected (NotDetected); Tricyclic Antidepressant,Urine Detected (NotDetected); Urn Cannabinoid Scrn Not Detected (NotDetected)
[2021-01-20 03:13] VITALS: BP 119/72; PULSE 104; TEMP 98.1
== END 2021-01-20 03:13 | disposition home or self-care (01) ==
LOC: EC 19:58
DX: F32.9 Major depressive disorder, single episode, unspecified (principal); F10.10 Alcohol abuse, uncomplicated; F17.210 Nicotine dependence, cigarettes, uncomplicated; I10 Essential (primary) hypertension; F41.9 Anxiety disorder, unspecified; Z79.899 Other long term (current) drug therapy
CPT/HCPCS: 80306; 82075; 99284

== ENCOUNTER 2021-01-20 06:15 | Emergency (ER) | payer OTHER ==
[2021-01-20 06:20] VITALS: BP 149/90; PULSE 74; RESP 18; TEMP 98
[2021-01-20] MEDS ORDERED: NICOTINE 21MG/24HR PATCH TRANSDERM STA (06:50)
[2021-01-20 08:24] LABS: Amphetamine Screen,Urine Not Detected (NotDetected); Barbiturate Screen,Urine Not Detected (NotDetected); Benzodiazepines Screen,Urine Detected (NotDetected); Cocaine Screen,Urine Not Detected (NotDetected); Methadone Screen, Urine Not Detected (NotDetected); Opiate Screen,Urine Not Detected (NotDetected); Oxycodone Screen, Urine Not Detected (NotDetected); Phencyclidine Screen,Urine Not Detected (NotDetected); Tricyclic Antidepressant,Urine Detected (NotDetected); Urn Cannabinoid Scrn Not Detected (NotDetected)
--- NOTE | 2021-01-20 08:35 | ED ---
Psych HPI - General Chief Complaint: Psychiatric Symptoms Stated Complaint: Mental Health Time Seen by Provider: 01/20/21 06:24 Source: patient, police Mode of arrival: ambulatory - History of Present Illness Initial Comments: 55-year-old male presents to the emergency department for psychiatric evaluation. Patient was petitioned by border police. Patient states she has been having suicidal thoughts and wants to jump into traffic. States he has been having these thoughts for quite some time and was recently evaluated for the same thing. He denies any homicidal thoughts or ideations. Denies using any illegal street drugs. - Related Data Home Medications Medication Instructions Recorded Confirmed Artificial Tears-Hypromellose 1 drops BOTH EYES TID 01/09/21 01/19/21 [Artificial Tear Drops] Ergocalciferol [Vitamin D2 (1250 1,250 mcg PO MO 01/09/21 01/19/21 Mcg = 12205 Iu)] Omeprazole 20 mg PO DAILY 01/09/21 01/19/21 Atorvastatin [Lipitor] 20 mg PO HS 01/19/21 01/19/21 FLUoxetine HCL [PROzac] 40 mg PO DAILY 01/19/21 01/19/21 [place] Carbonate [Lithobid] 750 mg PO HS 01/19/21 01/19/21 Mirtazapine [Remeron] 30 mg PO HS 01/19/21 01/19/21 QUEtiapine [SEROquel] 400 mg PO HS 01/19/21 01/19/21 amLODIPine [Norvasc] 5 mg PO DAILY 01/19/21 01/19/21 Previous Rx's Medication Instructions Recorded Nicotine 14Mg/24Hr Patch [Habitrol] 1 patch TRANSDERM DAILY 30 Days 01/17/21 patch Allergies Allergy/AdvReac Type Severity Reaction Status Date / Time No Known Allergies Allergy Verified 01/20/21 06:20 Review of Systems ROS Statement: Those systems with pertinent positive or pertinent negative responses have been documented in the HPI. ROS Other: All systems not noted in ROS Statement are negative. Past Medical History Past Medical History: Chest Pain / Angina, Hypertension Additional Past Medical History / Comment(s): ETOH History of Any Multi-Drug Resistant Organisms: None Reported Past Surgical History: Orthopedic Surgery Additional Past Surgical History / Comment(s): Right knee surgery and salma placed in left femur, 3 surgeries on his eyes. Past Anesthesia/Blood Transfusion Reactions: No Reported Reaction Past Psychological History: Anxiety, Bipolar, Depression, Schizoaffective Disorder Smoking Status: Current every day smoker Past Alcohol Use History: Abuse, Daily, Heavy Past Drug Use History: None Reported - Past Family History Mother Additional Family Medical History / Comment(s): Mother at age 36 from motor vehicle accident. His father is also past but does not know the cause or his age. Patient has 3 brothers that are apparently without major medical problems. General Exam Limitations: no limitations General appearance: alert, in no apparent distress Head exam: Present: atraumatic, normocephalic, normal inspection Eye exam: Present: normal appearance, PERRL, EOMI Pupils: Present: normal accommodation ENT exam: Present: normal exam, normal oropharynx, mucous membranes moist Neck exam: Present: normal inspection, full ROM. Absent: tenderness Respiratory exam: Present: normal lung sounds bilaterally. Absent: respiratory distress Cardiovascular Exam: Present: regular rate, normal rhythm, normal heart sounds Extremities exam: Present: normal inspection, full ROM, normal capillary refill Back exam: Present: normal inspection, full ROM Neurological exam: Present: alert, oriented X3, normal gait Psychiatric exam: Present: normal affect, normal mood Skin exam: Present: warm, dry, intact, normal color Course Vital Signs 01/20/21 06:16 Temperature 98 F Pulse Rate 74 Respiratory 18 Rate Blood Pressure 149/90 O2 Sat by Pulse 95 Oximetry Medical Decision Making - Medical Decision Making 55-year-old male presenting to the emergency department for psychiatric evaluation. Physical examination is unremarkable. He does report suicidal thoughts with a plan. EPS evaluated the patient and the recommended patient can be discharged. Patient verbalizes no suicidal thoughts or ideations to them. Supposedly the patient has been frustrated with his guardian regarding finances. Safety plan is in place. UA positive for benzodiazepines and tricyclic antidepressants. Case discussed with Dr. Foy. - Lab Data Lab Results 01/20/21 Range/Units 07:40 Urine Opiates Screen Not Detected (NotDetected) Ur Oxycodone Screen Not Detected (NotDetected) Urine Methadone Screen Not Detected (NotDetected) Ur Propoxyphene Screen Not Detected (NotDetected) Ur Barbiturates Screen Not Detected (NotDetected) U Tricyclic Antidepress Detected H (NotDetected) Ur Phencyclidine Scrn Not Detected (NotDetected) Ur Amphetamines Screen Not Detected (NotDetected) U Methamphetamines Scrn Not Detected (NotDetected) U Benzodiazepines Scrn Detected H (NotDetected) Urine Cocaine Screen Not Detected (NotDetected) U Marijuana (THC) Screen Not Detected (NotDetected) Disposition Clinical Impression: Adjustment reaction of adult life Disposition: HOME SELF-CARE Condition: Stable Instructions (If sedation given, give patient instructions): Help Prevent Suicide (ED) Additional Instructions: Please return to the Emergency Department if symptoms worsen or any other concerns. Is patient prescribed a controlled substance at d/c from ED?: No Referrals: [facility] [Primary Care Provider] - 1-2 days Time of Disposition: 10:47
== END 2021-01-20 11:30 | disposition home or self-care (01) ==
LOC: EC 06:15
DX: F43.20 Adjustment disorder, unspecified (principal); I10 Essential (primary) hypertension; F32.9 Major depressive disorder, single episode, unspecified; F25.9 Schizoaffective disorder, unspecified; F41.9 Anxiety disorder, unspecified; F17.200 Nicotine dependence, unspecified, uncomplicated
CPT/HCPCS: 80306; 82075; 99285

== ENCOUNTER 2021-01-21 03:03 | Emergency (ER) | payer OTHER ==
[2021-01-21 03:15] VITALS: RESP 18
--- NOTE | 2021-01-21 04:13 | ED ---
General Adult HPI - General Chief complaint: Psychiatric Symptoms Stated complaint: Mental Health, ETOH Time Seen by Provider: 01/21/21 03:37 Source: patient, EMS Mode of arrival: EMS Limitations: no limitations - History of Present Illness Initial comments: This patient is here main complaint is that he scraped his knee. Patient indicates anterior aspect left patella. Patient also apparently had told people that he would walk into traffic. -: hour(s) Location: left, lower extremity Improves with: none Worsens with: none Associated Symptoms: other - Related Data Home Medications Medication Instructions Recorded Confirmed Omeprazole 20 mg PO DAILY 01/09/21 01/21/21 Atorvastatin [Lipitor] 20 mg PO HS 01/19/21 01/21/21 FLUoxetine HCL [PROzac] 40 mg PO DAILY 01/19/21 01/21/21 [place] Carbonate [Lithobid] 750 mg PO HS 01/19/21 01/21/21 Mirtazapine [Remeron] 30 mg PO HS 01/19/21 01/21/21 QUEtiapine [SEROquel] 400 mg PO HS 01/19/21 01/21/21 amLODIPine [Norvasc] 5 mg PO DAILY 01/19/21 01/21/21 Previous Rx's Medication Instructions Recorded Nicotine 14Mg/24Hr Patch [Habitrol] 1 patch TRANSDERM DAILY 30 Days 01/17/21 patch Allergies Allergy/AdvReac Type Severity Reaction Status Date / Time No Known Allergies Allergy Verified 01/21/21 03:15 Review of Systems ROS Statement: Those systems with pertinent positive or pertinent negative responses have been documented in the HPI. ROS Other: All systems not noted in ROS Statement are negative. Constitutional: Denies: fever Respiratory: Denies: cough, dyspnea Cardiovascular: Denies: chest pain, palpitations Gastrointestinal: Denies: abdominal pain, vomiting Genitourinary: Denies: dysuria Musculoskeletal: Denies: back pain, arthralgia Skin: Reports: as per HPI, other (Abrasion) Neurological: Denies: headache Psychiatric: Reports: suicidal thoughts Past Medical History Past Medical History: Chest Pain / Angina, Hypertension Additional Past Medical History / Comment(s): ETOH History of Any Multi-Drug Resistant Organisms: None Reported Past Surgical History: Orthopedic Surgery Additional Past Surgical History / Comment(s): Right knee surgery and salma placed in left femur, 3 surgeries on his eyes. Past Anesthesia/Blood Transfusion Reactions: No Reported Reaction Past Psychological History: Anxiety, Bipolar, Depression, Schizoaffective Disorder Smoking Status: Current every day smoker Past Alcohol Use History: Abuse, Daily, Heavy Past Drug Use History: None Reported - Past Family History Mother Additional Family Medical History / Comment(s): Mother at age 36 from motor vehicle accident. His father is also past but does not know the cause or his age. Patient has 3 brothers that are apparently without major medical problems. General Exam Limitations: no limitations General appearance: alert, in no apparent distress Head exam: Present: atraumatic, normocephalic Eye exam: Present: normal appearance Respiratory exam: Present: normal lung sounds bilaterally. Absent: respiratory distress, wheezes, rales, rhonchi, stridor Cardiovascular Exam: Present: regular rate, normal rhythm, normal heart sounds. Absent: systolic murmur, diastolic murmur, rubs, gallop GI/Abdominal exam: Present: soft. Absent: distended, tenderness, guarding, rebound Extremities exam: Present: full ROM, normal capillary refill, other (Abrasion anterior aspect left patella). Absent: tenderness Back exam: Present: normal inspection. Absent: CVA tenderness (R), CVA tenderness (L) Neurological exam: Present: alert Psychiatric exam: Present: normal affect, normal mood, suicidal ideation. Absent: homicidal ideation Skin exam: Present: warm, dry, intact, normal color. Absent: rash Course Vital Signs 01/21/21 03:08 Temperature 98.3 F Pulse Rate 80 Respiratory 18 Rate Blood Pressure 143/84 O2 Sat by Pulse 95 Oximetry Disposition Clinical Impression: Abrasion of knee, left Disposition: HOME SELF-CARE Condition: Good Instructions (If sedation given, give patient instructions): Abrasion (ED) Is patient prescribed a controlled substance at d/c from ED?: No [facility] [[facility] Care [facility]] - 1-2 days
[2021-01-21] MEDS ORDERED: NICOTINE 21MG/24HR PATCH TRANSDERM STA (05:27)
[2021-01-21 07:43] VITALS: BP 146/84; PULSE 98; TEMP 98.9
== END 2021-01-21 07:58 | disposition home or self-care (01) ==
LOC: EC 03:03
DX: S80.212A Abrasion, left knee, initial encounter (principal); R45.851 Suicidal ideations; I10 Essential (primary) hypertension; F41.9 Anxiety disorder, unspecified; F32.9 Major depressive disorder, single episode, unspecified; F25.9 Schizoaffective disorder, unspecified; F17.200 Nicotine dependence, unspecified, uncomplicated; F10.10 Alcohol abuse, uncomplicated; X58.XXXA Exposure to other specified factors, initial encounter; Y90.9 Presence of alcohol in blood, level not specified
CPT/HCPCS: 82075; 99284; S4990

== ENCOUNTER 2021-01-23 21:15 | Emergency (ER) | payer OTHER ==
[2021-01-23 22:16] VITALS: RESP 20; TEMP 97.8
[2021-01-23] MEDS ORDERED: ACETAMINOPHEN TAB 325 MG TAB PO STA (22:29)
--- NOTE | 2021-01-23 22:31 | ED ---
Psych HPI - General Chief Complaint: Psychiatric Symptoms Stated Complaint: Mental health Time Seen by Provider: 01/23/21 22:27 Source: patient Mode of arrival: ambulatory - History of Present Illness MD Complaint: suicidal ideation, feels depressed -: days(s) Associated Psychiatric Symptoms: depression, suicidal ideation History of same: Yes Quality: constant Improves With: none Worsens With: none - Related Data Home Medications Medication Instructions Recorded Confirmed Omeprazole 20 mg PO DAILY 01/09/21 01/21/21 Atorvastatin [Lipitor] 20 mg PO HS 01/19/21 01/21/21 FLUoxetine HCL [PROzac] 40 mg PO DAILY 01/19/21 01/21/21 [place] Carbonate [Lithobid] 750 mg PO HS 01/19/21 01/21/21 Mirtazapine [Remeron] 30 mg PO HS 01/19/21 01/21/21 QUEtiapine [SEROquel] 400 mg PO HS 01/19/21 01/21/21 amLODIPine [Norvasc] 5 mg PO DAILY 01/19/21 01/21/21 Previous Rx's Medication Instructions Recorded Nicotine 14Mg/24Hr Patch [Habitrol] 1 patch TRANSDERM DAILY 30 Days 01/17/21 patch Allergies Allergy/AdvReac Type Severity Reaction Status Date / Time No Known Allergies Allergy Verified 01/23/21 22:16 Review of Systems ROS Statement: Those systems with pertinent positive or pertinent negative responses have been documented in the HPI. ROS Other: All systems not noted in ROS Statement are negative. Constitutional: Denies: fever Respiratory: Denies: cough, dyspnea Cardiovascular: Denies: chest pain, syncope Gastrointestinal: Denies: abdominal pain, vomiting, diarrhea Musculoskeletal: Denies: back pain Skin: Denies: rash Neurological: Denies: headache, weakness Psychiatric: Reports: depression, suicidal thoughts. Denies: auditory linton ucinations, visual hallucinations, homicidal thoughts Past Medical History Past Medical History: Chest Pain / Angina, Hypertension Additional Past Medical History / Comment(s): ETOH History of Any Multi-Drug Resistant Organisms: None Reported Past Surgical History: Orthopedic Surgery Additional Past Surgical History / Comment(s): Right knee surgery and salma placed in left femur, 3 surgeries on his eyes. Past Anesthesia/Blood Transfusion Reactions: No Reported Reaction Past Psychological History: Anxiety, Bipolar, Depression, Schizoaffective Disorder Smoking Status: Current every day smoker Past Alcohol Use History: Abuse, Daily, Heavy Past Drug Use History: None Reported - Past Family History Mother Additional Family Medical History / Comment(s): Mother at age 36 from motor vehicle accident. His father is also past but does not know the cause or his age. Patient has 3 brothers that are apparently without major medical problems. General Exam Limitations: no limitations General appearance: alert, in no apparent distress Head exam: Present: atraumatic, normocephalic Eye exam: Present: normal appearance Respiratory exam: Present: normal lung sounds bilaterally. Absent: respiratory distress, wheezes, rales, rhonchi, stridor Cardiovascular Exam: Present: regular rate, normal rhythm, normal heart sounds. Absent: systolic murmur, diastolic murmur, rubs, gallop GI/Abdominal exam: Present: soft. Absent: tenderness, guarding, rebound Neurological exam: Present: alert, normal gait Psychiatric exam: Present: depressed, suicidal ideation. Absent: agitated, anxious, manic, homicidal ideation Skin exam: Present: warm, dry, intact, normal color. Absent: rash Course Vital Signs 01/23/21 22:13 Temperature 97.8 F Pulse Rate 84 Respiratory 20 Rate Blood Pressure 136/78 O2 Sat by Pulse 97 Oximetry Disposition Clinical Impression: Mood disorder Disposition: HOME SELF-CARE Condition: Good Instructions (If sedation given, give patient instructions): Mood Disorders (ED) Is patient prescribed a controlled substance at d/c from ED?: No Referrals: [facility] [Primary Care Provider] - 1-2 days
[2021-01-23 23:24] VITALS: BP 130/80; PULSE 88
== END 2021-01-23 23:24 | disposition home or self-care (01) ==
LOC: EC 21:15
DX: F39 Unspecified mood [affective] disorder (principal); F41.9 Anxiety disorder, unspecified; F32.9 Major depressive disorder, single episode, unspecified; F17.200 Nicotine dependence, unspecified, uncomplicated; I10 Essential (primary) hypertension
CPT/HCPCS: 82075; 99284

== ENCOUNTER 2021-01-25 19:55 | Emergency (ER) | payer OTHER ==
[2021-01-25 20:08] VITALS: TEMP 97.4
--- NOTE | 2021-01-25 20:40 | ED ---
General Adult HPI - General Source: patient, police, RN notes reviewed, old records reviewed Mode of arrival: wheelchair Limitations: physical limitation <Florencio Porter - Last Filed: 01/25/21 20:38> <Anam Pinzon - Last Filed: 01/26/21 03:47> - General Chief complaint: Psychiatric Symptoms Stated complaint: Fall Time Seen by Provider: 01/25/21 20:20 - History of Present Illness Initial comments: 55-year-old male presenting for psychiatric evaluation, alcohol intoxication, multiple falls. Patient brought in by EMS after having multiple falls with minimal abrasion to the both right and the left forehead. Patient uncertain if he lost consciousness. He does admit to heavy alcohol consumption. Additionally he states that he is suicidal and plans to step down for traffic. (Florencio Porter) - Related Data Home Medications Medication Instructions Recorded Confirmed Omeprazole 20 mg PO DAILY 01/09/21 01/21/21 Atorvastatin [Lipitor] 20 mg PO HS 01/19/21 01/21/21 FLUoxetine HCL [PROzac] 40 mg PO DAILY 01/19/21 01/21/21 [place] Carbonate [Lithobid] 750 mg PO HS 01/19/21 01/21/21 Mirtazapine [Remeron] 30 mg PO HS 01/19/21 01/21/21 QUEtiapine [SEROquel] 400 mg PO HS 01/19/21 01/21/21 amLODIPine [Norvasc] 5 mg PO DAILY 01/19/21 01/21/21 Previous Rx's Medication Instructions Recorded Nicotine 14Mg/24Hr Patch [Habitrol] 1 patch TRANSDERM DAILY 30 Days 01/17/21 patch Allergies Allergy/AdvReac Type Severity Reaction Status Date / Time No Known Allergies Allergy Verified 01/25/21 20:07 Review of Systems ROS Other: All systems not noted in ROS Statement are negative. <Florencio Porter - Last Filed: 01/25/21 20:38> ROS Other: All systems not noted in ROS Statement are negative. <Anam Pinzon - Last Filed: 01/26/21 03:47> ROS Statement: Those systems with pertinent positive or pertinent negative responses have been documented in the HPI. Past Medical History Past Medical History: Chest Pain / Angina, Hypertension Additional Past Medical History / Comment(s): ETOH History of Any Multi-Drug Resistant Organisms: None Reported Past Surgical History: Orthopedic Surgery Additional Past Surgical History / Comment(s): Right knee surgery and salma placed in left femur, 3 surgeries on his eyes. Past Anesthesia/Blood Transfusion Reactions: No Reported Reaction Past Psychological History: Anxiety, Bipolar, Depression, Schizoaffective Disorder Smoking Status: Current every day smoker Past Alcohol Use History: Abuse, Daily, Heavy Past Drug Use History: None Reported - Past Family History Mother Additional Family Medical History / Comment(s): Mother at age 36 from motor vehicle accident. His father is also past but does not know the cause or his age. Patient has 3 brothers that are apparently without major medical problems. <Florencio Porter - Last Filed: 01/25/21 20:38> General Exam Limitations: physical limitation General appearance: alert, appears intoxicated Head exam: Present: other (Abrasion to the right forehead, small hematoma left lateral orbital ridge) Neck exam: Present: normal inspection, full ROM. Absent: tenderness, meningismus Respiratory exam: Present: normal lung sounds bilaterally. Absent: respiratory distress, wheezes Cardiovascular Exam: Present: regular rate, normal rhythm GI/Abdominal exam: Present: soft. Absent: distended, tenderness Extremities exam: Present: normal inspection, normal capillary refill. Absent: pedal edema Neurological exam: Present: alert, oriented X3, CN II-XII intact. Absent: motor sensory deficit Psychiatric exam: Present: suicidal ideation Skin exam: Present: warm, dry, abrasion <Florencio Porter - Last Filed: 01/25/21 20:38> Course <Florencio Porter - Last Filed: 01/25/21 20:38> <Anam Pinzon - Last Filed: 01/26/21 03:47> Vital Signs 01/25/21 20:04 Temperature 97.4 F L Pulse Rate 62 Respiratory 20 Rate Blood Pressure 144/95 O2 Sat by Pulse 99 Oximetry - Reevaluation(s) Reevaluation #1: 01/25/21 2300 Patient care signed out to Dr. Pinzon at shift change awaiting sobriety and EPS evaluation. (Florencio Porter) Reevaluation #2: 01/26/21 03:47 Medical record psychiatric evaluation (Anam Pinzon) Medical Decision Making <Anam Pinzon - Last Filed: 01/26/21 03:47> - Medical Decision Making 55 male to the ER for evaluation patient does have history of alcohol abuse. Coming in for psychiatric evaluation seen eval by psychiatry here in the ER and can be discharged home (Anam Pinzon) - Lab Data Lab Results 01/25/21 Range/Units 20:50 Urine Opiates Screen Not Detected (NotDetected) Ur Oxycodone Screen Not Detected (NotDetected) Urine Methadone Screen Not Detected (NotDetected) Ur Propoxyphene Screen Not Detected (NotDetected) Ur Barbiturates Screen Not Detected (NotDetected) U Tricyclic Antidepress Detected H (NotDetected) Ur Phencyclidine Scrn Not Detected (NotDetected) Ur Amphetamines Screen Not Detected (NotDetected) U Methamphetamines Scrn Not Detected (NotDetected) U Benzodiazepines Scrn Not Detected (NotDetected) Urine Cocaine Screen Not Detected (NotDetected) U Marijuana (THC) Screen Not Detected (NotDetected) Disposition <Florencio Porter - Last Filed: 01/25/21 20:38> Is patient prescribed a controlled substance at d/c from ED?: No <Anam Pinzon - Last Filed: 01/26/21 03:47> Clinical Impression: Alcohol abuse Disposition: HOME SELF-CARE Condition: Good Instructions (If sedation given, give patient instructions): Alcohol Intoxication (ED) Referrals: [facility] [Primary Care Provider] - 1-2 days
[2021-01-25 21:20] LABS: Amphetamine Screen,Urine Not Detected (NotDetected); Barbiturate Screen,Urine Not Detected (NotDetected); Benzodiazepines Screen,Urine Not Detected (NotDetected); Cocaine Screen,Urine Not Detected (NotDetected); Methadone Screen, Urine Not Detected (NotDetected); Opiate Screen,Urine Not Detected (NotDetected); Oxycodone Screen, Urine Not Detected (NotDetected); Phencyclidine Screen,Urine Not Detected (NotDetected); Tricyclic Antidepressant,Urine Detected (NotDetected); Urn Cannabinoid Scrn Not Detected (NotDetected)
--- NOTE | 2021-01-25 21:21 | CT ---
EXAMINATION TYPE: CT brain cspine wo con DATE OF EXAM: 01/25/2021 COMPARISON: 06/28/2020 HISTORY: Fall/etoh. Pt lacerations to forehead CT DLP: 1435.7 mGycm Automated exposure control for dose reduction was used. Images were obtained of the brain and cervical spine without contrast. There is enlargement of the ventricles. Calvarium is intact. There is no mass effect nor midline shif t. There is no sign of intracranial hemorrhage. Skull base is intact. There is normal aeration of the mastoid sinuses. There is apparent old anterior fusion surgery from C4 to C7. There is anterior spurring at C7-T1. The re is anterior mild spurring at C2-3 and C3-4. Facet joints are intact. There is no evidence of cervi rocky spine fracture. I see no bony destructive process. IMPRESSION: Previous cervical spine fusion surgery. Spondylotic changes. No fracture seen. No change compared to old exam. Moderate hydrocephalus similar to old exam. No acute intracranial abnormality.
[2021-01-26 03:55] VITALS: BP 136/90; PULSE 76; RESP 16
== END 2021-01-26 03:55 | disposition home or self-care (01) ==
LOC: EC 19:55
DX: F10.129 Alcohol abuse with intoxication, unspecified (principal); I10 Essential (primary) hypertension; F41.9 Anxiety disorder, unspecified; F31.9 Bipolar disorder, unspecified; F25.9 Schizoaffective disorder, unspecified; F17.200 Nicotine dependence, unspecified, uncomplicated; Z79.899 Other long term (current) drug therapy
CPT/HCPCS: 70450; 72125; 80306; 82075; 99285

== ENCOUNTER 2021-01-26 13:01 | Emergency (ER) | payer OTHER ==
[2021-01-26 13:53] VITALS: TEMP 97.6
--- NOTE | 2021-01-26 13:53 | ED ---
Psych HPI - General Source: patient, EMS Mode of arrival: EMS Limitations: no limitations <Ángel Klein - Last Filed: 01/26/21 13:52> <Florencio Porter - Last Filed: 01/26/21 21:21> - General Stated Complaint: Fall Time Seen by Provider: 01/26/21 13:50 - History of Present Illness Initial Comments: 55-year-old male presents emergency department via EMS chief complaint depression, suicidal ideation. Patient states she's been jump in front of a car. Patient sterilely intoxicated, drinking upon EMS arrival. Patient denies any drug use. Patient has long history of depression, alcohol abuse. Patient is currently now living at assisted. Patient's had multiple falls in which he's been evaluated for. (Ángel Klein) - Related Data Home Medications Medication Instructions Recorded Confirmed Omeprazole 20 mg PO DAILY 01/09/21 01/26/21 Atorvastatin [Lipitor] 20 mg PO HS 01/19/21 01/26/21 FLUoxetine HCL [PROzac] 40 mg PO DAILY 01/19/21 01/26/21 [place] Carbonate [Lithobid] 750 mg PO HS 01/19/21 01/26/21 Mirtazapine [Remeron] 30 mg PO HS 01/19/21 01/26/21 QUEtiapine [SEROquel] 400 mg PO HS 01/19/21 01/26/21 amLODIPine [Norvasc] 5 mg PO DAILY 01/19/21 01/26/21 Cholecalciferol (Vitamin D3) 125 mcg PO DAILY 01/26/21 01/26/21 [Vitamin D3 (5000 Iu)] Previous Rx's Medication Instructions Recorded Nicotine 14Mg/24Hr Patch [Habitrol] 1 patch TRANSDERM DAILY 30 Days 01/17/21 patch Allergies Allergy/AdvReac Type Severity Reaction Status Date / Time No Known Allergies Allergy Verified 01/26/21 16:22 Review of Systems ROS Other: All systems not noted in ROS Statement are negative. <Ángel Klein - Last Filed: 01/26/21 13:52> ROS Other: All systems not noted in ROS Statement are negative. <Florencio Porter - Last Filed: 01/26/21 21:21> ROS Statement: Those systems with pertinent positive or pertinent negative responses have been documented in the HPI. Past Medical History Past Medical History: Chest Pain / Angina, Hypertension Additional Past Medical History / Comment(s): ETOH History of Any Multi-Drug Resistant Organisms: None Reported Past Surgical History: Orthopedic Surgery Additional Past Surgical History / Comment(s): Right knee surgery and salma placed in left femur, 3 surgeries on his eyes. Past Anesthesia/Blood Transfusion Reactions: No Reported Reaction Past Psychological History: Anxiety, Bipolar, Depression, Schizoaffective Disorder Smoking Status: Current every day smoker Past Alcohol Use History: Abuse, Daily, Heavy Past Drug Use History: None Reported - Past Family History Mother Additional Family Medical History / Comment(s): Mother at age 36 from motor vehicle accident. His father is also past but does not know the cause or his age. Patient has 3 brothers that are apparently without major medical problems. <Ángel Klein - Last Filed: 01/26/21 13:52> General Exam General appearance: alert, in no apparent distress Head exam: Present: other (Abrasions on the forehead are appropriately healing) Eye exam: Present: normal appearance, PERRL ENT exam: Present: normal exam Neck exam: Present: normal inspection. Absent: tenderness, meningismus Respiratory exam: Present: normal lung sounds bilaterally. Absent: respiratory distress Cardiovascular Exam: Present: regular rate, normal rhythm GI/Abdominal exam: Present: soft. Absent: distended, tenderness, guarding, rebound Extremities exam: Present: normal inspection, normal capillary refill. Absent: pedal edema Neurological exam: Present: alert, oriented X3, CN II-XII intact. Absent: motor sensory deficit Psychiatric exam: Present: depressed, suicidal ideation Skin exam: Present: warm, dry, intact. Absent: cyanosis, diaphoretic <Florencio Porter - Last Filed: 01/26/21 21:21> Course <Florencio Porter - Last Filed: 01/26/21 21:21> Vital Signs 01/26/21 13:49 Temperature 97.6 F Pulse Rate 66 Respiratory 20 Rate Blood Pressure 120/79 O2 Sat by Pulse 97 Oximetry - Reevaluation(s) Reevaluation #1: 01/26/21 17:07 Patient cleared for EPS evaluation (Florencio Porter) Medical Decision Making <Florecnio Porter - Last Filed: 01/26/21 21:21> - Medical Decision Making Patient had been medically cleared, he been evaluated by EPS and will sign a safety plan. He is no longer suicidal. He's been cleared by EPS and psychiatrist corporate travel consultant. Return parameters discussed. (Florencio Porter) - Lab Data Lab Results 01/26/21 01/26/21 Range/Units 14:12 16:38 Urine Opiates Screen Not Detected (NotDetected) Ur Oxycodone Screen Not Detected (NotDetected) Urine Methadone Screen Not Detected (NotDetected) Ur Propoxyphene Screen Not Detected (NotDetected) Ur Barbiturates Screen Not Detected (NotDetected) U Tricyclic Antidepress Not Detected (NotDetected) Ur Phencyclidine Scrn Not Detected (NotDetected) Ur Amphetamines Screen Not Detected (NotDetected) U Methamphetamines Scrn Not Detected (NotDetected) U Benzodiazepines Scrn Not Detected (NotDetected) Urine Cocaine Screen Not Detected (NotDetected) U Marijuana (THC) Screen Not Detected (NotDetected) Serum Alcohol 55 mg/dL Disposition <Ángel Klein - Last Filed: 01/26/21 13:52> Is patient prescribed a controlled substance at d/c from ED?: No Time of Disposition: 21:20 <Florencio Porter - Last Filed: 01/26/21 21:21> Clinical Impression: Alcohol abuse, Depression Disposition: HOME SELF-CARE Condition: Fair Instructions (If sedation given, give patient instructions): Depression (ED) Referrals: Kermit Partida MD [Primary Care Provider] - 1-2 days
[2021-01-26 15:13] LABS: Amphetamine Screen,Urine Not Detected (NotDetected); Barbiturate Screen,Urine Not Detected (NotDetected); Benzodiazepines Screen,Urine Not Detected (NotDetected); Cocaine Screen,Urine Not Detected (NotDetected); Methadone Screen, Urine Not Detected (NotDetected); Opiate Screen,Urine Not Detected (NotDetected); Oxycodone Screen, Urine Not Detected (NotDetected); Phencyclidine Screen,Urine Not Detected (NotDetected); Tricyclic Antidepressant,Urine Not Detected (NotDetected); Urn Cannabinoid Scrn Not Detected (NotDetected)
[2021-01-26 21:42] VITALS: BP 140/82; PULSE 86; RESP 18
== END 2021-01-26 21:42 | disposition home or self-care (01) ==
LOC: EC 13:01
DX: F32.9 Major depressive disorder, single episode, unspecified (principal); F10.10 Alcohol abuse, uncomplicated; I10 Essential (primary) hypertension; F41.9 Anxiety disorder, unspecified; F25.9 Schizoaffective disorder, unspecified; F17.200 Nicotine dependence, unspecified, uncomplicated
CPT/HCPCS: 82075; 36415; 80306; 99285; G0480; 80320

== ENCOUNTER 2021-01-30 03:26 | Emergency (ER) | payer OTHER ==
[2021-01-30 03:48] VITALS: TEMP 97.9
[2021-01-30 04:29] LABS: Amphetamine Screen,Urine Not Detected (NotDetected); Barbiturate Screen,Urine Not Detected (NotDetected); Benzodiazepines Screen,Urine Not Detected (NotDetected); Cocaine Screen,Urine Not Detected (NotDetected); Methadone Screen, Urine Not Detected (NotDetected); Opiate Screen,Urine Not Detected (NotDetected); Oxycodone Screen, Urine Not Detected (NotDetected); Phencyclidine Screen,Urine Not Detected (NotDetected); Tricyclic Antidepressant,Urine Detected (NotDetected); Urn Cannabinoid Scrn Detected (NotDetected)
[2021-01-30] MEDS ORDERED: QUEtiapine 400 MG TAB PO STA (05:46)
[2021-01-30 06:32] VITALS: BP 128/61; PULSE 98; RESP 18
--- NOTE | 2021-02-25 07:12 | ED ---
Alcohol HPI - General Chief Complaint: Alcohol Stated Complaint: Police petition Time Seen by Provider: 01/30/21 03:32 Source: patient, EMS Mode of arrival: EMS - History of Present Illness Initial Comments: this patient is a 55-year-old man brought by police after being foung intoxicated in public and felt not able to ambulate. Patient admits drinking, denies medical complaints. MD Complaint: alcohol intoxication Last Drink: just [employer] TE[employer] -: hour(s) Previous Visits for Alcohol Intoxication?: Yes Recent Trauma: No Associated Symptoms: denies other symptoms Treatments Prior to Arrival: none Chronic Alcohol Use: Yes - Related Data Home Medications Medication Instructions Recorded Confirmed Omeprazole 20 mg PO DAILY 01/09/21 02/13/21 Atorvastatin [Lipitor] 20 mg PO HS 01/19/21 02/13/21 amLODIPine [Norvasc] 5 mg PO DAILY 01/19/21 02/13/21 Cholecalciferol (Vitamin D3) 125 mcg PO DAILY 01/26/21 02/13/21 [Vitamin D3 (5000 Iu)] Previous Rx's Medication Instructions Recorded Nicotine 14Mg/24Hr Patch [Habitrol] 1 patch TRANSDERM DAILY patch 02/16/21 OLANZapine [ZyPREXA] 20 mg PO HS #30 tab 02/16/21 Allergies Allergy/AdvReac Type Severity Reaction Status Date / Time No Known Allergies Allergy Verified 02/13/21 14:37 Review of Systems ROS Statement: Those systems with pertinent positive or pertinent negative responses have been documented in the HPI. ROS Other: All systems not noted in ROS Statement are negative. Constitutional: Denies: fever, chills Respiratory: Denies: cough, dyspnea Cardiovascular: Denies: chest pain, syncope Gastrointestinal: Denies: abdominal pain, vomiting, diarrhea Genitourinary: Denies: dysuria, hematuria Musculoskeletal: Denies: back pain Skin: Denies: rash Neurological: Denies: headache, weakness Past Medical History Past Medical History: Chest Pain / Angina, Hypertension Additional Past Medical History / Comment(s): ETOH History of Any Multi-Drug Resistant Organisms: None Reported Past Surgical History: Orthopedic Surgery Additional Past Surgical History / Comment(s): Right knee surgery and salma placed in left femur, 3 surgeries on his eyes. Past Anesthesia/Blood Transfusion Reactions: No Reported Reaction Past Psychological History: Anxiety, Bipolar, Depression, Schizoaffective Disorder Smoking Status: Current every day smoker Past Alcohol Use History: Abuse, Daily, Heavy Past Drug Use History: None Reported - Past Family History Mother Additional Family Medical History / Comment(s): Mother at age 36 from motor vehicle accident. His father is also past but does not know the cause or his age. Patient has 3 brothers that are apparently without major medical problems. General Exam General appearance: alert, in no apparent distress Head exam: Present: atraumatic, normocephalic Eye exam: Present: normal appearance. Absent: scleral icterus, conjunctival injection ENT exam: Present: mucous membranes dry Neck exam: Present: normal inspection Respiratory exam: Present: normal lung sounds bilaterally. Absent: respiratory distress, wheezes, rales, rhonchi, stridor Cardiovascular Exam: Present: regular rate, normal rhythm, normal heart sounds. Absent: systolic murmur, diastolic murmur, rubs, gallop GI/Abdominal exam: Present: soft. Absent: distended, tenderness, guarding, rebound, rigid Extremities exam: Present: normal inspection, normal capillary refill. Absent: pedal edema, calf tenderness Back exam: Present: normal inspection. Absent: CVA tenderness (R), CVA tenderness (L) Neurological exam: Present: alert Skin exam: Present: warm, dry, intact, normal color. Absent: rash Course Vital Signs 01/30/21 01/30/21 03:30 06:31 Temperature 97.9 F Pulse Rate 89 98 Respiratory 14 18 Rate Blood Pressure 136/66 128/61 O2 Sat by Pulse 98 95 Oximetry Medical Decision Making - Lab Data Lab Results 01/30/21 Range/Units 03:56 Urine Opiates Screen Not Detected (NotDetected) Ur Oxycodone Screen Not Detected (NotDetected) Urine Methadone Screen Not Detected (NotDetected) Ur Propoxyphene Screen Not Detected (NotDetected) Ur Barbiturates Screen Not Detected (NotDetected) U Tricyclic Antidepress Detected H (NotDetected) Ur Phencyclidine Scrn Not Detected (NotDetected) Ur Amphetamines Screen Not Detected (NotDetected) U Methamphetamines Scrn Not Detected (NotDetected) U Benzodiazepines Scrn Not Detected (NotDetected) Urine Cocaine Screen Not Detected (NotDetected) U Marijuana (THC) Screen Detected H (NotDetected) Disposition Clinical Impression: Mood disorder, Alcohol intoxication Disposition: HOME SELF-CARE Condition: Stable Instructions (If sedation given, give patient instructions): Mood Disorders (ED), Alcohol Intoxication (ED) Is patient prescribed a controlled substance at d/c from ED?: No Referrals: Kermit Partida MD [Primary Care Provider] - 1-2 days
== END 2021-01-30 06:32 | disposition home or self-care (01) ==
LOC: EC 03:26
DX: F39 Unspecified mood [affective] disorder (principal); F10.129 Alcohol abuse with intoxication, unspecified; I10 Essential (primary) hypertension; F41.9 Anxiety disorder, unspecified; F32.9 Major depressive disorder, single episode, unspecified; F25.9 Schizoaffective disorder, unspecified; F17.200 Nicotine dependence, unspecified, uncomplicated; Z79.899 Other long term (current) drug therapy; Y90.9 Presence of alcohol in blood, level not specified
CPT/HCPCS: 80306; 82075; 99284

== ENCOUNTER 2021-01-31 11:16 | Emergency (ER) | payer OTHER ==
[2021-01-31 11:55] VITALS: BP 117/77; PULSE 79; RESP 18; TEMP 97.7
--- NOTE | 2021-01-31 12:28 | ED ---
General Adult HPI - General Chief complaint: Psychiatric Symptoms Stated complaint: EPS eval Time Seen by Provider: 01/31/21 12:00 Source: patient, police, RN notes reviewed, old records reviewed Mode of arrival: ambulatory Limitations: no limitations - History of Present Illness Initial comments: This is a 55-year-old male who presents emergency department. Patient states he is homeless. Patient states he wants to kill himself he doesn't want to be here any longer. Patient states he has no specific plan other than possibly jumping in front of a car like he did 1994. Patient denies any alcohol use patient denies drug use. Patient denies any physical complaints today. Patient states last week he fell and that is why he has a small healing abrasion on his head but he denies headache denies neck pain denies numbness weakness. Patient denies any chest pain difficult breathing shortness of breath. Patient denies any abdominal pain patient denies nausea vomiting diarrhea. - Related Data Home Medications Medication Instructions Recorded Confirmed Omeprazole 20 mg PO DAILY 01/09/21 01/31/21 Atorvastatin [Lipitor] 20 mg PO HS 01/19/21 01/31/21 FLUoxetine HCL [PROzac] 40 mg PO DAILY 01/19/21 01/31/[address] [place] Carbonate [Lithobid] 600 mg PO HS 01/19/21 01/31/21 Mirtazapine [Remeron] 30 mg PO HS 01/19/21 01/31/21 QUEtiapine [SEROquel] 400 mg PO HS 01/19/21 01/31/21 amLODIPine [Norvasc] 5 mg PO DAILY 01/19/21 01/31/21 Cholecalciferol (Vitamin D3) 125 mcg PO DAILY 01/26/21 01/31/21 [Vitamin D3 (5000 Iu)] Previous Rx's Medication Instructions Recorded Nicotine 14Mg/24Hr Patch [Habitrol] 1 patch TRANSDERM DAILY 30 Days 01/17/21 patch Allergies Allergy/AdvReac Type Severity Reaction Status Date / Time No Known Allergies Allergy Verified 01/31/21 13:10 Review of Systems ROS Statement: Those systems with pertinent positive or pertinent negative responses have been documented in the HPI. ROS Other: All systems not noted in ROS Statement are negative. Past Medical History Past Medical History: Chest Pain / Angina, Hypertension Additional Past Medical History / Comment(s): ETOH History of Any Multi-Drug Resistant Organisms: None Reported Past Surgical History: Orthopedic Surgery Additional Past Surgical History / Comment(s): Right knee surgery and salam placed in left femur, 3 surgeries on his eyes. Past Anesthesia/Blood Transfusion Reactions: No Reported Reaction Past Psychological History: Anxiety, Bipolar, Depression, Schizoaffective Disorder Smoking Status: Current every day smoker Past Alcohol Use History: Abuse, Daily, Heavy Past Drug Use History: None Reported - Past Family History Mother Additional Family Medical History / Comment(s): Mother at age 36 from motor vehicle accident. His father is also past but does not know the cause or his age. Patient has 3 brothers that are apparently without major medical problems. General Exam - General Exam Comments Initial Comments: GENERAL: Patient is well-developed and well-nourished. Patient is nontoxic and well- hydrated and is in no acute distress. ENT: Neck is soft and supple. No significant lymphadenopathy is noted. Oropharynx is clear. Moist mucous membranes. Neck has full range of motion without eliciting any pain. EYES: The sclera were anicteric and conjunctiva were pink and moist. Extraocular movements were intact and pupils were equal round and reactive to light. Eyelids were unremarkable. PULMONARY: Unlabored respirations. Good breath sounds bilaterally. No audible rales rhonchi or wheezing was noted. CARDIOVASCULAR: There is a regular rate and rhythm without any murmurs gallops or rubs. ABDOMEN: Soft and nontender with normal bowel sounds. No palpable organomegaly was noted. There is no palpable pulsatile mass. SKIN: Skin is clear with no lesions or rashes and otherwise unremarkable. NEUROLOGIC: Patient is alert and oriented x3. Cranial nerves II through XII are grossly intact. Motor and sensory are also intact. Normal speech, volume and content. Symmetrical smile. MUSCULOSKELETAL: Normal extremities with adequate strength and full range of motion. No lower extremity swelling or edema. No calf tenderness. LYMPHATICS: No significant lymphadenopathy is noted PSYCHIATRIC: Patient states is having suicidal thoughts and considers jumping in front of a vehicle. Limitations: no limitations Course Vital Signs 01/31/21 11:51 Temperature 97.7 F Pulse Rate 79 Respiratory 18 Rate Blood Pressure 117/77 O2 Sat by Pulse 99 Oximetry Medical Decision Making - Medical Decision Making EPS evaluated the patient and determined the patient could be discharged home. Y spoke with the patient he stated he was no longer feeling suicidal because he had new living arrangements planned. Disposition Clinical Impression: Behavioral disorder Disposition: HOME SELF-CARE Condition: Good Instructions (If sedation given, give patient instructions): Depression (ED), Suicide Prevention (ED) Is patient prescribed a controlled substance at d/c from ED?: No Referrals: Kermit Partida MD [Primary Care Provider] - 1-2 days Time of Disposition: 15:15
== END 2021-01-31 15:39 | disposition home or self-care (01) ==
LOC: EC 11:16
DX: F91.9 Conduct disorder, unspecified (principal); I10 Essential (primary) hypertension; F32.9 Major depressive disorder, single episode, unspecified; F25.9 Schizoaffective disorder, unspecified; F17.200 Nicotine dependence, unspecified, uncomplicated
CPT/HCPCS: 82075; 99284

== ENCOUNTER 2021-02-04 14:32 | Emergency (ER) | payer OTHER ==
[2021-02-04 14:45] VITALS: RESP 20; TEMP 97.6
--- NOTE | 2021-02-04 14:58 | ED ---
Psych HPI - General Chief Complaint: Psychiatric Symptoms Stated Complaint: MENTAL HEALTH Time Seen by Provider: 02/04/21 14:48 Source: patient, police Mode of arrival: ambulatory - History of Present Illness Initial Comments: 55 year-old male patient presents to the emergency department brought by police for psychiatric evaluation. Patient does admit to drinking today. He currently resides at the [facility], staff called because patient was making suicidal statements. Bystanders also called because patient was stumbling around and was peeing outside. When police picked him up he stated that he was suicidal, wanted to take pills or jump in front of a car. Patient states he has felt this way for a "very long time". States he did have a fall yesterday and has pain in his "tailbone". Denies pain radiating down his legs, numbness or tingling to the lower extremities. Denies loss of bowel or bladder control. Patient denies any headache, neck pain, chest pain, shortness of breath, dizziness, weakness, abdominal pain, nausea, vomiting, or difficulties with bowel movements or urination. - Related Data Home Medications Medication Instructions Recorded Confirmed Omeprazole 20 mg PO DAILY 01/09/21 02/04/21 Atorvastatin [Lipitor] 20 mg PO HS 01/19/21 02/04/21 FLUoxetine HCL [PROzac] 60 mg PO DAILY 01/19/21 02/04/21 [place] Carbonate [Lithobid] 600 mg PO HS 01/19/21 02/04/21 Mirtazapine [Remeron] 30 mg PO HS 01/19/21 02/04/21 QUEtiapine [SEROquel] 400 mg PO HS 01/19/21 02/04/21 amLODIPine [Norvasc] 5 mg PO DAILY 01/19/21 02/04/21 Cholecalciferol (Vitamin D3) 125 mcg PO DAILY 01/26/21 02/04/21 [Vitamin D3 (5000 Iu)] Previous Rx's Medication Instructions Recorded Nicotine 14Mg/24Hr Patch [Habitrol] 1 patch TRANSDERM DAILY 30 Days 01/17/21 patch Allergies Allergy/AdvReac Type Severity Reaction Status Date / Time No Known Allergies Allergy Verified 02/04/21 15:24 Review of Systems ROS Statement: Those systems with pertinent positive or pertinent negative responses have been documented in the HPI. ROS Other: All systems not noted in ROS Statement are negative. Past Medical History Past Medical History: Chest Pain / Angina, Hypertension Additional Past Medical History / Comment(s): ETOH History of Any Multi-Drug Resistant Organisms: None Reported Past Surgical History: Orthopedic Surgery Additional Past Surgical History / Comment(s): Right knee surgery and salma placed in left femur, 3 surgeries on his eyes. Past Anesthesia/Blood Transfusion Reactions: No Reported Reaction Past Psychological History: Anxiety, Bipolar, Depression, Schizoaffective Disorder Smoking Status: Current every day smoker Past Alcohol Use History: Abuse, Daily, Heavy Past Drug Use History: None Reported - Past Family History Mother Additional Family Medical History / Comment(s): Mother at age 36 from motor vehicle accident. His father is also past but does not know the cause or his age. Patient has 3 brothers that are apparently without major medical problems. General Exam Limitations: no limitations General appearance: alert, in no apparent distress, other (Physical well- developed, well-nourished adult male patient in no acute distress. Vital signs upon presentation are temperature 97.6F, pulse 85, respirations 20, blood pressure 106/68, pulse ox 97% on room air.) Eye exam: Present: PERRL, EOMI, periorbital swelling (Left superior orbital). Absent: scleral icterus, conjunctival injection, periorbital tenderness ENT exam: Present: normal exam, normal oropharynx, mucous membranes moist Neck exam: Present: normal inspection, full ROM, other (Nontender, no step-off, no deformity to firm midline palpation of the posterior cervical spine. Full range of motion without pain or limitation.). Absent: tenderness, meningismus, lymphadenopathy Respiratory exam: Present: normal lung sounds bilaterally. Absent: respiratory distress, wheezes, rales, rhonchi, stridor Cardiovascular Exam: Present: regular rate, normal rhythm, normal heart sounds. Absent: systolic murmur, diastolic murmur, rubs, gallop, clicks GI/Abdominal exam: Present: soft, normal bowel sounds. Absent: distended, tenderness, guarding, rebound, rigid Neurological exam: Present: alert, oriented X3, CN II-XII intact Psychiatric exam: Present: normal affect, normal mood, suicidal ideation, other (Appears intoxicated). Absent: homicidal ideation Skin exam: Present: warm, dry, intact, normal color. Absent: rash Course Vital Signs 02/04/21 02/04/21 14:42 18:01 Temperature 97.6 F Pulse Rate 85 80 Respiratory 20 20 Rate Blood Pressure 106/68 120/66 O2 Sat by Pulse 97 98 Oximetry Medical Decision Making - Medical Decision Making 55-year-old male patient presents to the emergency department today for a psychiatric evaluation. He was cleared medically. Seen and evaluated by EPS. It was determined he is safe for discharge back to his long term. He is instructed to follow-up with outpatient mental services. Return parameters were discussed in detail. He verbalizes understanding and agrees with this plan. My attending is Dr. Porter. - Lab Data Lab Results 02/04/21 Range/Units 15:03 Urine Opiates Screen Not Detected (NotDetected) Ur Oxycodone Screen Not Detected (NotDetected) Urine Methadone Screen Not Detected (NotDetected) Ur Propoxyphene Screen Not Detected (NotDetected) Ur Barbiturates Screen Not Detected (NotDetected) U Tricyclic Antidepress Detected H (NotDetected) Ur Phencyclidine Scrn Not Detected (NotDetected) Ur Amphetamines Screen Not Detected (NotDetected) U Methamphetamines Scrn Not Detected (NotDetected) U Benzodiazepines Scrn Not Detected (NotDetected) Urine Cocaine Screen Not Detected (NotDetected) U Marijuana (THC) Screen Not Detected (NotDetected) Disposition Clinical Impression: Suicidal thoughts, Alcohol intoxication Disposition: HOME SELF-CARE Condition: Good Instructions (If sedation given, give patient instructions): Abuse of Alcohol (ED), Suicide Prevention (ED) Additional Instructions: Follow-up with outpatient mental services. Return for any new, worsening, or concerning symptoms. Is patient prescribed a controlled substance at d/c from ED?: No Referrals: Kermit Partida MD [Primary Care Provider] - 1-2 days Time of Disposition: 17:21
--- NOTE | 2021-02-04 15:24 | XR ---
EXAMINATION TYPE: XR lumbosacral spine min 4V DATE OF EXAM: 02/04/2021 Comparison: 04/03/2018 Clinical History: 55-year-old male Fall, lower back injury Findings: Subtle rotary dextro convex curvature lumbar spine. Facet arthropathy lower lumbar spine. 5 lumbar t ype vertebral bodies. No pars interarticularis defect identified. Mild multilevel degenerative disc d isease and endplate spondylosis. There is grade 1 retrolisthesis L3-L4. Vertebral body heights preser bernabe. Impression: Mild multilevel degenerative disc disease. Facet arthropathy lower lumbar spine. Trace grade 1 retrol isthesis L3-L4. No vertebral compression collapse.
[2021-02-04 15:31] LABS: Amphetamine Screen,Urine Not Detected (NotDetected); Barbiturate Screen,Urine Not Detected (NotDetected); Benzodiazepines Screen,Urine Not Detected (NotDetected); Cocaine Screen,Urine Not Detected (NotDetected); Methadone Screen, Urine Not Detected (NotDetected); Opiate Screen,Urine Not Detected (NotDetected); Oxycodone Screen, Urine Not Detected (NotDetected); Phencyclidine Screen,Urine Not Detected (NotDetected); Tricyclic Antidepressant,Urine Detected (NotDetected); Urn Cannabinoid Scrn Not Detected (NotDetected)
[2021-02-04 18:02] VITALS: BP 120/66; PULSE 80
== END 2021-02-04 18:02 | disposition home or self-care (01) ==
LOC: EC 14:32
DX: F10.129 Alcohol abuse with intoxication, unspecified (principal); R45.851 Suicidal ideations; I10 Essential (primary) hypertension; F41.9 Anxiety disorder, unspecified; F31.9 Bipolar disorder, unspecified; F25.9 Schizoaffective disorder, unspecified; F17.200 Nicotine dependence, unspecified, uncomplicated; Z79.899 Other long term (current) drug therapy
CPT/HCPCS: 72110; 80306; 82075; 99285

== ENCOUNTER 2021-02-12 20:42 | Emergency (ER) | payer OTHER ==
--- NOTE | 2021-02-12 21:48 | ED ---
Psych HPI - General Chief Complaint: Psychiatric Symptoms Stated Complaint: Police petition Time Seen by Provider: 02/12/21 20:59 Source: patient, police Mode of arrival: wheelchair - History of Present Illness Initial Comments: Patient is 55-year-old man brought by police after he had made some suicidal statements in their presence. When I interview the patient, he states that he is not feeling as bad as he was earlier. When asked how he is doing today he states "I'm fine." Complaint: suicidal ideation -: hour(s) Associated Psychiatric Symptoms: depression, suicidal ideation History of same: Yes Quality: intermittent Improves With: none Worsens With: alcohol Context: recent alcohol abuse Associated Symptoms: denies other symptoms - Related Data Home Medications Medication Instructions Recorded Confirmed Omeprazole 20 mg PO DAILY 01/09/21 02/04/21 Atorvastatin [Lipitor] 20 mg PO HS 01/19/21 02/04/21 FLUoxetine HCL [PROzac] 60 mg PO DAILY 01/19/21 02/04/21 [place] Carbonate [Lithobid] 600 mg PO HS 01/19/21 02/04/21 Mirtazapine [Remeron] 30 mg PO HS 01/19/21 02/04/21 QUEtiapine [SEROquel] 400 mg PO HS 01/19/21 02/04/21 amLODIPine [Norvasc] 5 mg PO DAILY 01/19/21 02/04/21 Cholecalciferol (Vitamin D3) 125 mcg PO DAILY 01/26/21 02/04/21 [Vitamin D3 (5000 Iu)] Previous Rx's Medication Instructions Recorded Nicotine 14Mg/24Hr Patch [Habitrol] 1 patch TRANSDERM DAILY 30 Days 01/17/21 patch Allergies Allergy/AdvReac Type Severity Reaction Status Date / Time No Known Allergies Allergy Verified 02/12/21 20:48 Review of Systems ROS Statement: Those systems with pertinent positive or pertinent negative responses have been documented in the HPI. ROS Other: All systems not noted in ROS Statement are negative. Constitutional: Denies: fever, chills Respiratory: Denies: cough, dyspnea Cardiovascular: Denies: chest pain, palpitations Gastrointestinal: Denies: abdominal pain, vomiting, diarrhea Musculoskeletal: Denies: back pain Skin: Denies: rash Neurological: Denies: headache, weakness Psychiatric: Reports: depression. Denies: auditory hallucinations, visual hallucinations, homicidal thoughts, suicidal thoughts Past Medical History Past Medical History: Chest Pain / Angina, Hypertension Additional Past Medical History / Comment(s): ETOH History of Any Multi-Drug Resistant Organisms: None Reported Past Surgical History: Orthopedic Surgery Additional Past Surgical History / Comment(s): Right knee surgery and salma placed in left femur, 3 surgeries on his eyes. Past Anesthesia/Blood Transfusion Reactions: No Reported Reaction Past Psychological History: Anxiety, Bipolar, Depression, Schizoaffective Disorder Smoking Status: Current every day smoker Past Alcohol Use History: Abuse, Daily, Heavy Past Drug Use History: None Reported - Past Family History Mother Additional Family Medical History / Comment(s): Mother at age 36 from motor vehicle accident. His father is also past but does not know the cause or his age. Patient has 3 brothers that are apparently without major medical problems. General Exam Limitations: no limitations General appearance: alert, in no apparent distress Head exam: Present: atraumatic, normocephalic Eye exam: Present: normal appearance. Absent: scleral icterus, conjunctival injection Respiratory exam: Present: normal lung sounds bilaterally. Absent: respiratory distress, wheezes, rales, rhonchi, stridor Cardiovascular Exam: Present: regular rate, normal rhythm, normal heart sounds. Absent: systolic murmur, diastolic murmur, rubs, gallop GI/Abdominal exam: Present: soft. Absent: distended, tenderness, guarding, rebound Extremities exam: Present: normal inspection, normal capillary refill Neurological exam: Present: alert Psychiatric exam: Absent: agitated, anxious, flat affect, manic, homicidal ideation, suicidal ideation Skin exam: Present: warm, dry, intact, normal color. Absent: rash Course Vital Signs 02/12/21 20:45 Temperature 98.1 F Pulse Rate 82 Respiratory 20 Rate Blood Pressure 135/81 O2 Sat by Pulse 99 Oximetry Disposition Clinical Impression: Mood disorder Disposition: HOME SELF-CARE Condition: Good Instructions (If sedation given, give patient instructions): Mood Disorders (ED) Is patient prescribed a controlled substance at d/c from ED?: No Referrals: Kermit Partida MD [Primary Care Provider] - 1-2 days
[2021-02-13 01:52] VITALS: BP 116/69; PULSE 81; RESP 18; TEMP 97.9
== END 2021-02-13 01:52 | disposition home or self-care (01) ==
LOC: EC 20:42
DX: F32.9 Major depressive disorder, single episode, unspecified (principal); I10 Essential (primary) hypertension; F25.9 Schizoaffective disorder, unspecified; F17.200 Nicotine dependence, unspecified, uncomplicated
CPT/HCPCS: 82075; 99284

== ENCOUNTER 2021-02-13 11:31 | Inpatient (IN) | payer MEDICAID, OTHER ==
--- NOTE | 2021-02-13 12:21 | ED ---
General Adult HPI - General Chief complaint: Psychiatric Symptoms Stated complaint: Petition Time Seen by Provider: 02/13/21 11:37 Source: patient, police, old records reviewed Mode of arrival: ambulatory Limitations: no limitations - History of Present Illness Initial comments: Patient is a 55-year-old male presenting to the emergency department with c oncerns regarding depression and suicidal thoughts. Patient admits to drinking alcohol. Patient states he drinks daily. Patient admits to having thoughts of running in front of traffic. Patient states no longer does he feel depressed or suicidal. Patient does have history of chronic problems previously. - Related Data Home Medications Medication Instructions Recorded Confirmed Omeprazole 20 mg PO DAILY 01/09/21 02/04/21 Atorvastatin [Lipitor] 20 mg PO HS 01/19/21 02/04/21 FLUoxetine HCL [PROzac] 60 mg PO DAILY 01/19/21 02/04/21 [place] Carbonate [Lithobid] 600 mg PO HS 01/19/21 02/04/21 Mirtazapine [Remeron] 30 mg PO HS 01/19/21 02/04/21 QUEtiapine [SEROquel] 400 mg PO HS 01/19/21 02/04/21 amLODIPine [Norvasc] 5 mg PO DAILY 01/19/21 02/04/21 Cholecalciferol (Vitamin D3) 125 mcg PO DAILY 01/26/21 02/04/21 [Vitamin D3 (5000 Iu)] Previous Rx's Medication Instructions Recorded Nicotine 14Mg/24Hr Patch [Habitrol] 1 patch TRANSDERM DAILY 30 Days 01/17/21 patch Allergies Allergy/AdvReac Type Severity Reaction Status Date / Time No Known Allergies Allergy Verified 02/13/21 11:36 Review of Systems ROS Statement: Those systems with pertinent positive or pertinent negative responses have been documented in the HPI. ROS Other: All systems not noted in ROS Statement are negative. Constitutional: Denies: fever Eyes: Denies: eye pain ENT: Denies: ear pain Respiratory: Denies: cough, dyspnea Cardiovascular: Denies: chest pain Endocrine: Denies: fatigue Gastrointestinal: Denies: abdominal pain Genitourinary: Denies: dysuria Musculoskeletal: Denies: back pain Skin: Denies: rash Neurological: Denies: weakness Psychiatric: Reports: depression Past Medical History Past Medical History: Chest Pain / Angina, Hypertension Additional Past Medical History / Comment(s): ETOH History of Any Multi-Drug Resistant Organisms: None Reported Past Surgical History: Orthopedic Surgery Additional Past Surgical History / Comment(s): Right knee surgery and salma placed in left femur, 3 surgeries on his eyes. Past Anesthesia/Blood Transfusion Reactions: No Reported Reaction Past Psychological History: Anxiety, Bipolar, Depression, Schizoaffective Disorder Smoking Status: Current every day smoker Past Alcohol Use History: Abuse, Daily, Heavy Past Drug Use History: None Reported - Past Family History Mother Additional Family Medical History / Comment(s): Mother at age 36 from motor vehicle accident. His father is also past but does not know the cause or his age. Patient has 3 brothers that are apparently without major medical problems. General Exam Limitations: no limitations General appearance: alert, in no apparent distress Head exam: Present: normocephalic Eye exam: Present: normal appearance Respiratory exam: Present: normal lung sounds bilaterally Cardiovascular Exam: Present: regular rate, normal rhythm, normal heart sounds GI/Abdominal exam: Present: soft. Absent: tenderness Extremities exam: Present: normal inspection Neurological exam: Present: alert Psychiatric exam: Present: flat affect Skin exam: Present: normal color Course Vital Signs 02/13/21 11:33 Temperature 98.6 F Pulse Rate 88 Respiratory 18 Rate Blood Pressure 116/75 O2 Sat by Pulse 98 Oximetry Medical Decision Making - Medical Decision Making Patient was seen by mental health services with plans for admission. Disposition Clinical Impression: Alcohol dependence, Depression, Suicidal ideation Disposition: TRANSFER TO PSYCH HOSP/UNIT Is patient prescribed a controlled substance at d/c from ED?: No Referrals: Kermit Partida MD [Primary Care Provider] - 1-2 days Decision Time: 12:30
[2021-02-13] MEDS ORDERED: MAG HYDROX/AL HYDROX/SIMETH 30 ML CUP PO PRN (13:43)
[2021-02-13] MEDS ORDERED: ACETAMINOPHEN TAB 325 MG TAB PO PRN (13:43)
[2021-02-13] MEDS ORDERED: LORazepam 1 MG TAB PO PRN (13:43)
[2021-02-13] MEDS ORDERED: MAGNESIUM HYDROXIDE 2,400 MG/10 ML CUP PO PRN (13:43)
[2021-02-13] MEDS ORDERED: LORazepam 2 MG/ML INJ IM PRN (13:47)
[2021-02-13] MEDS ORDERED: HALOPERIDOL LACTATE 5 MG/ML 1 ML VIAL IM PRN (13:48)
[2021-02-13 14:11] LABS: Amphetamine Screen,Urine Not Detected (NotDetected); Barbiturate Screen,Urine Not Detected (NotDetected); Benzodiazepines Screen,Urine Not Detected (NotDetected); Cocaine Screen,Urine Not Detected (NotDetected); Methadone Screen, Urine Not Detected (NotDetected); Opiate Screen,Urine Not Detected (NotDetected); Oxycodone Screen, Urine Not Detected (NotDetected); Phencyclidine Screen,Urine Not Detected (NotDetected); Tricyclic Antidepressant,Urine Detected (NotDetected); Urn Cannabinoid Scrn Not Detected (NotDetected)
[2021-02-13] MEDS: ATORVASTATIN 20 MG TAB PO SCH (20:13)
[2021-02-13] MEDS ORDERED: LITHIUM CARBONATE 300 MG CAP PO SCH (21:00)
[2021-02-13] MEDS ORDERED: MIRTAZAPINE 15 MG TAB PO SCH (21:00)
[2021-02-13] MEDS ORDERED: QUEtiapine 400 MG TAB PO SCH (21:00)
[2021-02-14 07:38] LABS: Basophils # (A) 0.1 k/uL (0-0.2); Basophils % (A) 1 %; Eosinophils # (A) 0.5 k/uL (0-0.7); Eosinophils % (A) 5 %; HGB 13.6 gm/dL (13.0-17.5); Lymphocytes # (A) 1.8 k/uL (1.0-4.8); Lymphocytes % (A) 17 %; MCH 29.2 pg (25.0-35.0); MCHC 32.4 g/dL (31.0-37.0); MCV 90.1 fL (80.0-100.0); Mean Platelet Volume 7.2; Monocytes # (A) 0.7 k/uL (0-1.0); Monocytes % (A) 6 %; Neutrophils # (A) 7.2 k/uL (1.3-7.7); Neutrophils % (A) 70 %; Platelet Count 383 k/uL (150-450); RBC 4.66 m/uL (4.30-5.90); RDW 14.6 % (11.5-15.5); WBC 10.4 k/uL (3.8-10.6)
[2021-02-14 07:52] LABS: ALT 10 U/L (4-49); AST 26 U/L (17-59); African American GFR (CKD) >90 (>60 ml/min/1.73 sqM); Albumin 3.8 g/dL (3.5-5.0); Alkaline Phosphatase 116 U/L (38-126); Anion Gap 7 mmol/L; Blood Urea Nitrogen 14 mg/dL (9-20); Calcium 9.2 mg/dL (8.4-10.2); Carbon Dioxide 24 mmol/L (22-30); Chloride 110 mmol/L (98-107); Cholesterol 173 mg/dL (<200); Glucose 83 mg/dL (74-99); HDL Cholesterol 54 mg/dL (40-60); LDL Cholesterol,Calculated 95 mg/dL (0-99); Non-African American GFR(CKD) 89 (>60 ml/min/1.73 sqM); Potassium 4.4 mmol/L (3.5-5.1); Sodium 141 mmol/L (137-145); Total Bilirubin 0.7 mg/dL (0.2-1.3); Total Protein 6.5 g/dL (6.3-8.2); Triglycerides 119 mg/dL (<150)
[2021-02-14] MEDS ORDERED: FLUoxetine HCL 20 MG CAP PO SCH (09:00)
[2021-02-14] MEDS ORDERED: NICOTINE 14MG/24HR PATCH TRANSDERM SCH (09:00)
[2021-02-14] MEDS: amLODIPine 5 MG TAB PO SCH (09:09)
[2021-02-14] MEDS: CHOLECALCIFEROL 25 MCG (1000 IU) TABLET PO SCH (09:09)
[2021-02-14] MEDS: PANTOPRAZOLE 40 MG TABLET PO SCH (09:09)
[2021-02-14] MEDS: NICOTINE 14MG/24HR PATCH TRANSDERM SCH (09:11)
[2021-02-14] MEDS ORDERED: OLANZapine 10 MG TAB PO ONE (11:54)
[2021-02-14] MEDS ORDERED: OLANZapine 10 MG TAB ONE (12:42)
[2021-02-14 14:35] LABS: Hemoglobin A1C 5.2 % (4.0-6.0)
--- NOTE | 2021-02-14 15:35 | HP ---
DATE OF SERVICE: 02/14/2021 HISTORY AND PHYSICAL IDENTIFYING DATA: The patient is a 55-year-old male. He had been living at [facility]. The patient now states that he is homeless. He has a guardian over financial affairs. He presented to the ED for evaluation. CHIEF COMPLAINT: The patient was depressed. He had suicide thoughts. He had been drinking daily. He had thoughts of running into traffic. HISTORY OF PRESENTING ILLNESS: The patient has long-term issues with substance abuse, namely alcohol, and issues of mood disorder. He has had multiple psychiatric hospitalizations. He has also been to substance abuse treatment on many occasions, including a number of contacts at [facility]. His last psychiatric admission was 01/12/2021, when he was admitted to this facility. He also had thoughts of harming himself by jumping in front of traffic. He made statements that "I would rather be . Life sucks. Then you ." He has been drinking on a daily basis. Today when I reviewed his history, the patient was not able to provide a clear picture of what may be precipitating his recent hospitalization, including the current one. In the records it is noted that with some contacts he would make statements of wanting to , then at others, would deny he had any thoughts of harming himself. According to [facility] records, recently he had been residing in an [facility], but was kicked out for unclear reasons. In the last week he was staying at [facility]. He was stating to [facility] staff, prior to this admission that all was "OK" with him and he had no significant issues. [facility] staff painted an entirely different picture, indicating he had eloped from the home several times and returned intoxicated, on 3 different occasions. He was having disturbing behavior in the home, such as spitting on others, intentionally spilling things, breaking cups. Other than alcohol, the patient was denying use of any other abusive substances, though urine drug screen from [facility] on 01/10 was positive for tricyclics and benzodiazepines. It is noteworthy that he had a number of psychiatric admissions from 2014 to 2016, then he had not had any psych admissions at this facility until the December admission. He was not able to give me much information as to how he maintained things for himself to stay out of the hospital or what would have changed to have him been coming back to the hospital. Apparently he does have issues in regard to the fact that he has a guardian who controls his money. He was vague about how much he has been drinking. He reports no use of other abusive substances. He acknowledges that he has not been sleeping well. His mood is up and down. He does not identify any immediate precipitants to him developing more intense thoughts of suicide. He denies problems with hallucinations, delusional thoughts, panic or post-traumatic issues. He acknowledges that he has major troubles with the idea of not drinking, let alone that he could actually take steps to not drink. He was unable to provide much information about his current functioning. Medications from the medical record that he has been prescribed prior to admission include Remeron 30 mg a day, Prozac 60 mg a day, Seroquel 400 mg a day and lithium carbonate 600 mg a day. He indicated that he has not been taking his medications consistently, though he could not give me a very clear picture at all about whether or not he has been making any effort at keeping up with his medications. He has not been seen in followup. He is admitted for further evaluation. SUBSTANCE USE HISTORY: The patient has long-term and persistent use of alcohol. He indicates that he has not been smoking marijuana or using other abusive substances. PAST MEDICAL HISTORY: Medical records indicate the patient has been diagnosed with COPD. FAMILY AND SOCIAL HISTORY: The patient did not provide any information. According to staff, he had been living at [facility]. I refer the reader to Dr. Santoyo's admission note of 01/12/2021 for further details. MENTAL STATUS EXAMINATION: The patient was lying in bed half asleep. It took him a little bit to wake up. He then came down to the office. Eye contact was poor. Psychomotor activity was slowed. Speech was monotone. He answered questions with brief responses. He did not say much. His affect was flat, his mood depressed. He was moderately distressed. It was difficult to assess for thought disorder. He acknowledged that he had thoughts of suicide, including running into traffic, though stated that he does not have any intention or plan of doing that. On cognitive exam, he did make an effort to answer formal cognitive questions. He could tell me he was in [facility]. He understood he was on the psychiatric unit. He was oriented to day, date and circumstance PHYSICAL EXAMINATION: As per medical consultation. ASSESSMENT: This 55-year-old male is diagnosed with alcohol dependence, continuous, and mood disorder. The primary issue with depression and suicidality clearly relates to his persistent drinking. He has a poor social support network; he describes no family or friends to support him in any way and currently identifies himself as homeless. Strengths include that he did come to the hospital seeking help. Weakness includes persistent drinking. DIAGNOSES: 1. Alcohol dependence, continuous. 2. Mood disorder, chronic and recurrent, severe. 3. Chronic obstructive pulmonary disease. RECOMMENDATIONS: The patient will be admitted for comprehensive medical, psychiatric and psychosocial evaluation. We will engage the patient in individual and group therapeutic activities. I will discontinue his listed home medications; namely, I will discontinue Seroquel, Remeron, lithium and Prozac. The best I am able to tell, he has not been taking those medications. He does not really have a clear indication for any of those medications at this time, given that the predominance of issues result revolves around his persistent drinking, I will start the patient on Zyprexa 10 mg three times a day. The aim of Zyprexa is to help reduce physiologic stress response relating to acute substance withdrawal. There is some question of the patient being reality- based, given the struggles he has with his drinking and the degree of social isolation he experiences. Zyprexa may benefit him in terms of any issues of thought disorder. At this point, given his history of recurring drinking and recurring hospitalizations and the fact that he just recently was hospitalized for exactly the same situation, I am looking to be assertive with his medication. We will monitor for effects of sedation, which may be the most immediate side effect that we might have to address. The aim of being assertive with medications is to see whether he shows any response to the medication. There is not a clear indication for him to be on multiple psychotropic medications, given that there has not been an established diagnosis outside of his persistent drinking. We will focus on stabilization and discharge planning. TAHIR / SARAH: [id number] / MTDD
[2021-02-14] MEDS: OLANZapine 10 MG TAB PO SCH ×2 (17:42→20:46)
--- NOTE | 2021-02-14 19:02 | CONS ---
CONSULTATION CHIEF COMPLAINT: Major depression. HISTORY OF PRESENT ILLNESS: This is another admission for this 55-year-old white male. I have not seen him for some time. He was in the office last in 2016. He apparently became depressed and came to the emergency room with suicidal thoughts and ideation. REVIEW OF SYSTEMS: He denies any headaches, seizures, head injuries, change in vision or hearing, chest pain, cough, shortness of breath, hemoptysis, hypertension, murmurs, rheumatic fever, heart disease, abdominal pain, nausea, vomiting, hematemesis, melena, hematochezia, jaundice, hepatitis, cirrhosis, renal failure, hematuria, frequency, urgency, dysuria, diabetes, etc. Past medical history, family history, and personal and social histories reveal that he is NOT ALLERGIC TO ANY MEDICATION. He does have a history of hypertension, alcohol abuse and depression. Surgically he has had surgery for a fracture of the left femur and a procedure on the right knee. He continues to smoke. PHYSICAL EXAMINATION: Blood pressure is 120/78 with a pulse of 88, respiratory rate 16. He is afebrile. In general he appeared to be well developed, well nourished, slender and in no acute distress. Skin color is normal. Skin is warm and dry. Lymph nodes are not enlarged. Head, ears, eyes, nose, mouth and throat are normal. Neck veins are not distended. Thyroid is not enlarged. Chest is clear. Cardiac exam is normal. Abdomen is soft, nontender. Extremities are normal. Neurologically he is intact. He has been admitted to the hospital with the diagnosis of major depression with suicidal thoughts. RECOMMENDATIONS: None at this time. MMODL / IJN: [id number] /
[2021-02-14] MEDS: ATORVASTATIN 20 MG TAB PO SCH (20:46)
[2021-02-15] MEDS: amLODIPine 5 MG TAB PO SCH (08:22)
[2021-02-15] MEDS: PANTOPRAZOLE 40 MG TABLET PO SCH (08:22)
[2021-02-15] MEDS: NICOTINE 14MG/24HR PATCH TRANSDERM SCH (08:22)
[2021-02-15] MEDS: CHOLECALCIFEROL 25 MCG (1000 IU) TABLET PO SCH (08:22)
[2021-02-15] MEDS: OLANZapine 10 MG TAB PO SCH ×2 (08:22→20:33)
--- NOTE | 2021-02-15 13:02 | PN ---
PROGRESS NOTE DATE OF SERVICE: 02/15/2021. CHIEF COMPLAINT: The patient was depressed. He had suicide thoughts. He had been drinking daily. He had thoughts of running into traffic. INTERVAL HISTORY: Patient continues to do about the same. He is quite withdrawn. Yesterday he mostly isolated. He spent most of the time in his room. He will come out in the day area occasionally. He does not interact with others. He did not attend groups yesterday. He seems to passively accept his situation of being in the hospital, though he does not identify any reason for being here or goals towards discharge. He slept much of the day and in the night. Today he has again been in his room. He has not attended groups today. He is appropriate in his interactions, though he does not make any effort to initiate interactions with staff or peers. At the team meeting today there was a discussion of a meeting with the patient's guardian and [facility]. Part of the plan was to look at placement in an alternative living situation for him. I reviewed the medical record noting that since January 09, he has presented to the emergency room 13 times. The patient said that he did not recall those contacts and believed that that was not him, but someone must have his name mixed up with someone else. He did acknowledge that in the past he has been to [place]. When I presented the option of his going to [place] again, he did not seem to resist the idea. He again does not really identify any goals or aims. We talked about working situation. 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 He tolerates his psychotropic medications. MENTAL STATUS: Patient sat in a slumped posture. Eye contact was poor. Psychomotor activity was slowed. He responded to questions with one-word responses. He did not say much. His affect was flat. His mood depressed. He was moderately distressed. It was difficult to assess for thought disorder. He was oriented to his circumstances and surroundings. ASSESSMENT: I will continue the current diagnosis and treatment plan. I will reduce Zyprexa to 10 mg twice a day. I discussed discharge planning issues possibly with a plan towards [place]. The patient did not resist that idea on the surface whether or not he would be accepting of that if an opening came up remains to be seen. Social Work will be making contact with his guardian and [facility] to review the issues further. We will focus on stabilization and discharge planning. MMODL / IJN: [id number] /
[2021-02-15] MEDS: ATORVASTATIN 20 MG TAB PO SCH (20:33)
[2021-02-15 20:35] LABS: Appearance,Urine Clear (Clear); Bilirubin,Urine Negative (Negative); Blood,Urine Small (Negative); Color,Urine Light Yellow; Glucose,Urine (UA) Negative (Negative); Ketones,Urine Negative (Negative); Leukocyte Esterase,Urine Negative (Negative); Nitrite,Urine Negative (Negative); PH, Urine 6.5 (5.0-8.0); Protein,Urine Negative (Negative); RBC,Urine 5 /hpf (0-5); Specific Gravity,Urine 1.016 (1.001-1.035); Urobilinogen,Urine <2.0 mg/dL (<2.0); WBC,Urine 1 /hpf (0-5)
[2021-02-16] MEDS: CHOLECALCIFEROL 25 MCG (1000 IU) TABLET PO SCH (08:00)
[2021-02-16] MEDS: OLANZapine 10 MG TAB PO SCH (08:01)
[2021-02-16] MEDS: amLODIPine 5 MG TAB PO SCH (08:01)
[2021-02-16] MEDS: PANTOPRAZOLE 40 MG TABLET PO SCH (08:01)
[2021-02-16] MEDS: NICOTINE 14MG/24HR PATCH TRANSDERM SCH (08:37)
[2021-02-16 08:43] VITALS: BP 119/64; PULSE 101; RESP 18; TEMP 96.8
[2021-02-16] MEDS ORDERED: OLANZapine 10 MG TAB PO SCH (21:00)
--- NOTE | 2021-02-18 17:37 | DS ---
DISCHARGE SUMMARY DATE OF ADMISSION: 02/13/2021. DATE OF DISCHARGE: 02/16/2021. ADMISSION AND DISCHARGE DIAGNOSES: 1. Alcohol dependence continuous. 2. Mood disorder, chronic and recurrent, severe. 3. Chronic obstructive pulmonary disease. HISTORY OF PRESENTING ILLNESS: The patient is a 55-year-old male. He had been residing in [facility]. He has a long history of issues relating to substance abuse and mood disorder. He has had multiple past psychiatric hospitalizations. He has had a number of substance use admissions including [facility]. He had a recent admission 01/12/2021 for depression with thoughts of jumping into traffic. He had made various statements of wanting to to various staff. He has had recent episodes where he would [facility] and on at least 3 different occasions recently returned intoxicated. Current medications as per his last hospitalization include Remeron 30 mg a day, Prozac 60 mg a day, Seroquel 400 mg a day and lithium carbonate 600 mg a day. He had not been taking his medications. He was admitted for further evaluation. MENTAL STATUS EXAM: The patient gave poor eye contact. Psychomotor activity was slowed. Speech was monotone. He answered questions with brief responses. He did not say much. His affect was flat. Mood depressed. He was moderately distressed. It was difficult to assess for thought disorder. He acknowledged thoughts of suicide. He was oriented and alert. COURSE OF HOSPITALIZATION: Patient was admitted for comprehensive medical psychiatric and psychosocial evaluation. We engaged the patient in individual and group therapeutic activities. On admission, I discontinued the patient's current prescribed medications and discontinued Seroquel, Remeron, lithium and Prozac. The patient had not been taking his medications on any consistent basis. Also, it was not likely that he would be compliant with medications anyway. I started the patient on Zyprexa 10 mg 3 times a day. For the patient's part, mostly he kept to himself. He would lie in bed some of the day. He would come out in the day area, though he did not interact much with others. He did not attend groups. We coordinated with [facility] for followup planning. The patient was cooperative with care. His Zyprexa ultimately was reduced to 10 mg twice a day and then 20 mg just at bedtime. CONDITION AT DISCHARGE: Patient was stable. His mood was improved. He was not voicing any thoughts the harm to self or others. He tolerated psychotropic medications. RECOMMENDATIONS AND FOLLOWUP: Patient is discharged to come to [facility]. DISCHARGE MEDICATIONS: Zyprexa 20 mg a day. All his other psychotropic medications that he was on previously should be discontinued. He will have followup through [facility]. MMISHMAEL / SARAH: [id number] /
== END 2021-02-16 13:04 | disposition home or self-care (01) | DRG 885 ==
LOC: EC 11:31 → 3MHU 13:40
PROVIDERS: ADMIT Psychiatry & Neurology Psychiatry; ATTEND Psychiatry & Neurology Psychiatry
DX: F25.9 Schizoaffective disorder, unspecified (principal); R45.851 Suicidal ideations; F17.200 Nicotine dependence, unspecified, uncomplicated; F10.20 Alcohol dependence, uncomplicated; F31.9 Bipolar disorder, unspecified; I10 Essential (primary) hypertension; J44.9 Chronic obstructive pulmonary disease, unspecified; Z59.0 Homelessness; Z63.8 Other specified problems related to primary support group; Z79.899 Other long term (current) drug therapy
CPT/HCPCS: 80053; 80061; 80178; 80306; 81001; 82075; 83036; 84443; 85025; 87636; 99285

== ENCOUNTER 2021-03-05 20:56 | Emergency (ER) | payer OTHER ==
[2021-03-05 21:07] VITALS: TEMP 98.1
[2021-03-05] MEDS ORDERED: NICOTINE 14MG/24HR PATCH TRANSDERM STA (22:13)
--- NOTE | 2021-03-05 22:28 | ED ---
General Adult HPI - General Chief complaint: Psychiatric Symptoms Stated complaint: ETOH/mental health Time Seen by Provider: 03/05/21 21:30 Source: patient, EMS Mode of arrival: EMS Limitations: altered mental status - History of Present Illness Initial comments: 55-year-old male presents to the emergency department for psychiatric evaluation. Patient does have history of alcohol abuse. Patient showed up to the ED today complaining of suicidal thoughts but no ideations. He was also intoxicated. Patient has no other complaints. - Related Data Home Medications Medication Instructions Recorded Confirmed Omeprazole 20 mg PO DAILY 01/09/21 02/13/21 Atorvastatin [Lipitor] 20 mg PO HS 01/19/21 02/13/21 amLODIPine [Norvasc] 5 mg PO DAILY 01/19/21 02/13/21 Cholecalciferol (Vitamin D3) 125 mcg PO DAILY 01/26/21 02/13/21 [Vitamin D3 (5000 Iu)] Previous Rx's Medication Instructions Recorded Nicotine 14Mg/24Hr Patch [Habitrol] 1 patch TRANSDERM DAILY patch 02/16/21 OLANZapine [ZyPREXA] 20 mg PO HS #30 tab 02/16/21 Allergies Allergy/AdvReac Type Severity Reaction Status Date / Time No Known Allergies Allergy Verified 02/13/21 14:37 Review of Systems ROS Statement: Those systems with pertinent positive or pertinent negative responses have been documented in the HPI. ROS Other: All systems not noted in ROS Statement are negative. Past Medical History Past Medical History: Chest Pain / Angina, Hypertension Additional Past Medical History / Comment(s): ETOH History of Any Multi-Drug Resistant Organisms: None Reported Past Surgical History: Orthopedic Surgery Additional Past Surgical History / Comment(s): Right knee surgery and salma placed in left femur, 3 surgeries on his eyes. Past Anesthesia/Blood Transfusion Reactions: No Reported Reaction Past Psychological History: Anxiety, Bipolar, Depression, Schizoaffective Disorder Smoking Status: Current every day smoker Past Alcohol Use History: Abuse, Daily, Heavy Past Drug Use History: None Reported - Past Family History Mother Additional Family Medical History / Comment(s): Mother at age 36 from motor vehicle accident. His father is also past but does not know the cause or his age. Patient has 3 brothers that are apparently without major medical problems. General Exam Limitations: altered mental status General appearance: alert, in no apparent distress Head exam: Present: atraumatic, normocephalic, normal inspection Eye exam: Present: normal appearance, PERRL, EOMI Pupils: Present: normal accommodation ENT exam: Present: normal exam, normal oropharynx, mucous membranes moist Neck exam: Present: normal inspection, full ROM. Absent: tenderness Respiratory exam: Present: normal lung sounds bilaterally. Absent: respiratory distress Cardiovascular Exam: Present: regular rate, normal rhythm, normal heart sounds Extremities exam: Present: normal inspection, full ROM Back exam: Present: normal inspection, full ROM Neurological exam: Present: alert, oriented X3 Psychiatric exam: Present: normal affect, normal mood Skin exam: Present: warm, dry, intact, normal color Course Vital Signs 03/05/21 21:04 Temperature 98.1 F Pulse Rate 86 Respiratory 18 Rate Blood Pressure 115/70 O2 Sat by Pulse 95 Oximetry Medical Decision Making - Medical Decision Making 55-year-old male with history of alcohol abuse presents to emergency for psychiatric evaluation. Patient is suicidal thoughts but ideations. EPS evaluated the patient and they spoke with the guardian and they have a ride for patient to arrive home to his facility. Supposedly the patient uses this outlet as a coping mechanism. Breath ETOH is 0.170. Patient will be discharged Disposition Clinical Impression: Alcohol intoxication Disposition: HOME SELF-CARE Condition: Stable Instructions (If sedation given, give patient instructions): Alcohol Dependence (ED) Additional Instructions: Please return to the Emergency Department if symptoms worsen or any other concerns. Is patient prescribed a controlled substance at d/c from ED?: No Referrals: Kermit Partida MD [Primary Care Provider] - 1-2 days Time of Disposition: 22:28
[2021-03-06 02:39] VITALS: BP 132/82; PULSE 101; RESP 16
== END 2021-03-06 02:39 | disposition home or self-care (01) ==
LOC: EC 20:56
DX: F10.129 Alcohol abuse with intoxication, unspecified (principal); R45.851 Suicidal ideations; I10 Essential (primary) hypertension; F41.9 Anxiety disorder, unspecified; F32.9 Major depressive disorder, single episode, unspecified; F25.9 Schizoaffective disorder, unspecified; F17.200 Nicotine dependence, unspecified, uncomplicated; Y90.9 Presence of alcohol in blood, level not specified
CPT/HCPCS: 82075; 99284

== ENCOUNTER 2021-04-21 19:45 | Emergency (ER) | payer OTHER ==
[2021-04-21 19:58] VITALS: TEMP 98.5
--- NOTE | 2021-04-21 20:31 | ED ---
General Adult HPI - General Source: patient, RN notes reviewed, old records reviewed Mode of arrival: ambulatory Limitations: no limitations <Florencio Porter - Last Filed: 04/21/21 20:29> <Anam Pinzon - Last Filed: 04/22/21 05:49> - General Chief complaint: Psychiatric Symptoms Stated complaint: Petition Time Seen by Provider: 04/21/21 19:59 - History of Present Illness Initial comments: 55-year-old male brought in for suicidal ideation, alcohol intoxication. Patient denies suicidal plan. He was brought in by local police, he has been petitioned for psychiatric evaluation. He has no physical complaints. No injuries. (Florencio Porter) - Related Data Home Medications Medication Instructions Recorded Confirmed Omeprazole 20 mg PO DAILY@0800 01/09/21 04/21/21 Atorvastatin [Lipitor] 20 mg PO HS@209901/19/21 04/21/21 amLODIPine [Norvasc] 5 mg PO DAILY@79901/19/21 04/21/21 Cholecalciferol (Vitamin D3) 125 mcg PO DAILY@00 01/26/21 04/21/21 [Vitamin D3 (5000 Iu)] FLUoxetine HCL [PROzac] 60 mg PO DAILY@79904/21/21 04/21/21 [place] Carbonate 600 mg PO HS@209904/21/21 04/21/21 Mirtazapine 30 mg PO HS@209904/21/21 04/21/21 Naltrexone HCl [Revia] 50 mg PO DAILY@0804/21/21 04/21/21 QUEtiapine [SEROquel] 400 mg PO HS@209904/21/21 04/21/21 Allergies Allergy/AdvReac Type Severity Reaction Status Date / Time No Known Allergies Allergy Verified 04/21/21 21:47 Review of Systems ROS Other: All systems not noted in ROS Statement are negative. <Florencio Porter - Last Filed: 04/21/21 20:29> ROS Other: All systems not noted in ROS Statement are negative. <Anam Pinzon - Last Filed: 04/22/21 05:49> ROS Statement: Those systems with pertinent positive or pertinent negative responses have been documented in the HPI. Past Medical History Past Medical History: Chest Pain / Angina, Hypertension Additional Past Medical History / Comment(s): ETOH History of Any Multi-Drug Resistant Organisms: None Reported Past Surgical History: Orthopedic Surgery Additional Past Surgical History / Comment(s): Right knee surgery and salma placed in left femur, 3 surgeries on his eyes. Past Anesthesia/Blood Transfusion Reactions: No Reported Reaction Past Psychological History: Anxiety, Bipolar, Depression, Schizoaffective Disorder Smoking Status: Current every day smoker Past Alcohol Use History: Abuse, Daily, Heavy Past Drug Use History: None Reported - Past Family History Mother Additional Family Medical History / Comment(s): Mother at age 36 from motor vehicle accident. His father is also past but does not know the cause or his age. Patient has 3 brothers that are apparently without major medical problems. <Florencio Porter - Last Filed: 04/21/21 20:29> General Exam Limitations: no limitations General appearance: alert, in no apparent distress Head exam: Present: atraumatic, normocephalic Eye exam: Present: normal appearance, PERRL ENT exam: Present: normal exam Neck exam: Present: normal inspection. Absent: tenderness, meningismus Respiratory exam: Present: normal lung sounds bilaterally. Absent: respiratory distress, wheezes Cardiovascular Exam: Present: regular rate, normal rhythm GI/Abdominal exam: Present: soft. Absent: distended, tenderness, guarding, rebound Extremities exam: Present: normal inspection, normal capillary refill. Absent: pedal edema Neurological exam: Present: alert, oriented X3, CN II-XII intact. Absent: motor sensory deficit Psychiatric exam: Present: depressed, suicidal ideation Skin exam: Present: warm, dry, intact <Florencio Porter - Last Filed: 04/21/21 20:29> Course <Florencio Porter - Last Filed: 04/21/21 20:29> <Anam Pinzon - Last Filed: 04/22/21 05:49> Vital Signs 04/21/21 04/21/21 04/21/21 19:54 20:58 22:08 Temperature 98.5 F Pulse Rate 77 18 L Respiratory 16 20 Rate Blood Pressure 125/82 O2 Sat by Pulse 97 95 98 Oximetry 04/22/21 03:04 Temperature Pulse Rate 88 Respiratory 16 Rate Blood Pressure 125/62 O2 Sat by Pulse 95 Oximetry - Reevaluation(s) Reevaluation #1: 04/21/21 2300 Patient care signed out to Dr. Pinzon At shift change awaiting sobriety and EPS evaluation. (Florencio Porter) Reevaluation #2: 04/22/21 05:49 Medical records reviewed 04/22/21 05:49 Medical clear for psychiatric evaluation (Anam Pinzon) Medical Decision Making <Anam Pinzon - Last Filed: 04/22/21 05:49> - Medical Decision Making 55 male well-known to this emergency department. Patient seen in however psychiatry as well as petition, patient not currently homicidal or suicidal and can be discharged home (Anam Pinzon) - Lab Data Lab Results 04/21/21 Range/Units 20:15 Urine Opiates Screen Not Detected (NotDetected) Ur Oxycodone Screen Detected H (NotDetected) Urine Methadone Screen Not Detected (NotDetected) Ur Propoxyphene Screen Not Detected (NotDetected) Ur Barbiturates Screen Not Detected (NotDetected) U Tricyclic Antidepress Detected H (NotDetected) Ur Phencyclidine Scrn Not Detected (NotDetected) Ur Amphetamines Screen Not Detected (NotDetected) U Methamphetamines Scrn Not Detected (NotDetected) U Benzodiazepines Scrn Not Detected (NotDetected) Urine Cocaine Screen Not Detected (NotDetected) U Marijuana (THC) Screen Not Detected (NotDetected) Disposition <Florencio Porter - Last Filed: 04/21/21 20:29> Is patient prescribed a controlled substance at d/c from ED?: No <Anam Pinzon - Last Filed: 04/22/21 05:49> Clinical Impression: Alcohol abuse, Alcohol dependence, continuous Disposition: HOME SELF-CARE Condition: Fair Instructions (If sedation given, give patient instructions): Alcohol Intoxication (ED) Referrals: Kermit Partida MD [Primary Care Provider] - 1-2 days
[2021-04-21 20:33] LABS: Amphetamine Screen,Urine Not Detected (NotDetected); Barbiturate Screen,Urine Not Detected (NotDetected); Benzodiazepines Screen,Urine Not Detected (NotDetected); Cocaine Screen,Urine Not Detected (NotDetected); Methadone Screen, Urine Not Detected (NotDetected); Opiate Screen,Urine Not Detected (NotDetected); Oxycodone Screen, Urine Detected (NotDetected); Phencyclidine Screen,Urine Not Detected (NotDetected); Tricyclic Antidepressant,Urine Detected (NotDetected); Urn Cannabinoid Scrn Not Detected (NotDetected)
[2021-04-22 03:05] VITALS: BP 125/62; PULSE 88; RESP 16
== END 2021-04-22 06:14 | disposition home or self-care (01) ==
LOC: EC 19:45
DX: F10.20 Alcohol dependence, uncomplicated (principal); I10 Essential (primary) hypertension; F31.9 Bipolar disorder, unspecified; F25.9 Schizoaffective disorder, unspecified; F41.9 Anxiety disorder, unspecified; F17.200 Nicotine dependence, unspecified, uncomplicated; Z79.899 Other long term (current) drug therapy; Y90.9 Presence of alcohol in blood, level not specified
CPT/HCPCS: 80306; 82075; 99284

== ENCOUNTER 2021-04-30 18:06 | Emergency (ER) | payer OTHER ==
[2021-04-30 18:09] VITALS: RESP 18; TEMP 98.6
--- NOTE | 2021-04-30 20:10 | CT ---
EXAMINATION TYPE: CT brain [place]on[place] wo con DATE OF EXAM: 04/30/2021 COMPARISON: 01/25/2021 HISTORY: ETOH/fall Pain CT DLP: 1347.6 mGycm Automated exposure control for dose reduction was used. There is enlargement of the ventricles. There is mild cerebral atrophy. There is no mass effect nor m idline shift. There is no sign of intracranial hemorrhage. The calvarium is intact. There is fusion of the cervical spine from C4 to C7. There is anterior bridging osteophyte at C7-T1. The posterior elements are intact. There is no compression fracture. IMPRESSION: Previous cervical spine fusion surgery. No acute bony abnormality. Hydrocephalus without change. Cerebral atrophy without change. No acute intracranial abnormality.
--- NOTE | 2021-04-30 20:39 | ED ---
Alcohol HPI - General Chief Complaint: Alcohol Stated Complaint: ETOH Time Seen by Provider: 04/30/21 18:20 Source: patient Mode of arrival: ambulatory Limitations: no limitations - History of Present Illness Initial Comments: 55-year-old male past medical history of daily heavy alcohol abuse presents emergency Department intoxicated. He was found in the hospital parking lot on the ground. The patient is intoxicated and fell and hit his head. Patient reports that he falls all the time. He denies syncope. He denies any headaches or visual changes. No neck pain. Patient does admit to drinking today and every day. He denies abusing any other substances. No other alleviating, precipitating or modifying factors - Related Data Home Medications Medication Instructions Recorded Confirmed Omeprazole 20 mg PO DAILY@79901/09/21 04/21/21 Atorvastatin [Lipitor] 20 mg PO HS@209901/19/21 04/21/21 amLODIPine [Norvasc] 5 mg PO DAILY@79901/19/21 04/21/21 Cholecalciferol (Vitamin D3) 125 mcg PO DAILY@79901/26/21 04/21/21 [Vitamin D3 (5000 Iu)] FLUoxetine HCL [PROzac] 60 mg PO DAILY@79904/21/21 04/21/21 [place] Carbonate 600 mg PO HS@209904/21/21 04/21/21 Mirtazapine 30 mg PO HS@209904/21/21 04/21/21 Naltrexone HCl [Revia] 50 mg PO DAILY@79904/21/21 04/21/21 QUEtiapine [SEROquel] 400 mg PO HS@209904/21/21 04/21/21 Allergies Allergy/AdvReac Type Severity Reaction Status Date / Time No Known Allergies Allergy Verified 04/21/21 21:47 Review of Systems ROS Statement: Those systems with pertinent positive or pertinent negative responses have been documented in the HPI. ROS Other: All systems not noted in ROS Statement are negative. Past Medical History Past Medical History: Chest Pain / Angina, Hypertension Additional Past Medical History / Comment(s): ETOH History of Any Multi-Drug Resistant Organisms: None Reported Past Surgical History: Orthopedic Surgery Additional Past Surgical History / Comment(s): Right knee surgery and salma placed in left femur, 3 surgeries on his eyes. Past Anesthesia/Blood Transfusion Reactions: No Reported Reaction Past Psychological History: Anxiety, Bipolar, Depression, Schizoaffective Disorder Smoking Status: Current every day smoker Past Alcohol Use History: Abuse, Daily, Heavy Past Drug Use History: None Reported - Past Family History Mother Additional Family Medical History / Comment(s): Mother at age 36 from motor vehicle accident. His father is also past but does not know the cause or his a ge. Patient has 3 brothers that are apparently without major medical problems. General Exam Limitations: altered mental status General appearance: alert, in no apparent distress, appears intoxicated Head exam: Present: other (abrasion right occiput - 4 x 4 cm. Mild oozing at this time. No lacerations. Small surronding hematoma. no step offs) Course Vital Signs 04/30/21 04/30/21 18:06 21:25 Temperature 98.6 F Pulse Rate 88 96 Respiratory 18 18 Rate Blood Pressure 113/74 122/78 O2 Sat by Pulse 99 96 Oximetry Medical Decision Making - Medical Decision Making Upon arrival patient was placed into room 23. History and physical exam was performed. Patient has an abrasion to the right side of his head. He does agree to CT which demonstrates previous cervical spine fusion surgery. No acute abnormality. Hydrocephalus without change. Patient does have a BAT of 155. Patient is monitored until he is sober. He is reevaluated and has no new complaints. He is eager to leave. Patient be discharged home at this time. Instructed to stop drinking. Return to the emergency room for any new or worsening symptoms. Patient discharged in stable condition Disposition Clinical Impression: Alcohol abuse, Alcohol intoxication, Concussion Disposition: HOME SELF-CARE Condition: Stable Instructions (If sedation given, give patient instructions): Head Injury (ED), Alcohol Intoxication (ED) Additional Instructions: Please follow with your PCP in 2-4 days. Stop drinking alcohol. Return to the ED for any new or worsening symptoms Is patient prescribed a controlled substance at d/c from ED?: No Referrals: Kermit Partida MD [Primary Care Provider] - 1-2 days Time of Disposition: 20:39
[2021-04-30 21:27] VITALS: BP 122/78; PULSE 96
== END 2021-04-30 21:25 | disposition home or self-care (01) ==
LOC: EC 18:06
DX: F10.129 Alcohol abuse with intoxication, unspecified (principal); I10 Essential (primary) hypertension; F31.9 Bipolar disorder, unspecified; F41.9 Anxiety disorder, unspecified; F25.9 Schizoaffective disorder, unspecified; F17.200 Nicotine dependence, unspecified, uncomplicated; Y90.9 Presence of alcohol in blood, level not specified
CPT/HCPCS: 70450; 72125; 82075; 99284

== ENCOUNTER 2021-05-02 16:17 | Emergency (ER) | payer OTHER ==
[2021-05-02 16:34] VITALS: RESP 18
--- NOTE | 2021-05-02 17:17 | ED ---
General Adult HPI - General Chief complaint: Alcohol Stated complaint: alcohol Source: patient, RN notes reviewed, old records reviewed Mode of arrival: ambulatory Limitations: no limitations - History of Present Illness Initial comments: This is a 55-year-old male presents emergency Department intoxicated. Patient told nursing staff that he might jump in front of the car. When I asked him that he said he isn't couldn't do it and it wouldn't work anyhow. Patient states he tells nursing staff that sometimes but doesn't really mean it. Patient states he is a daily drinker. Patient denies to me suicidal or homicidal ideations. Patient denies any drug use. Patient denies any physical complaints today. Patient denies any recent fall or injury. Patient denies headache patient denies neck pain patient denies chest pain patient denies any difficulty breathing shortest breath per patient denies any back pain patient denies any extremity pain. - Related Data Home Medications Medication Instructions Recorded Confirmed Omeprazole 20 mg PO DAILY@0800 01/09/21 05/02/21 Atorvastatin [Lipitor] 20 mg PO HS@209901/19/21 05/02/21 amLODIPine [Norvasc] 5 mg PO DAILY@0800 01/19/21 05/02/21 Cholecalciferol (Vitamin D3) 125 mcg PO DAILY@0800 01/26/21 05/02/21 [Vitamin D3 (5000 Iu)] FLUoxetine HCL [PROzac] 60 mg PO DAILY@0800 04/21/21 05/02/21 [place] Carbonate 600 mg PO HS@209904/21/21 05/02/21 Mirtazapine 30 mg PO HS@209904/21/21 05/02/21 Naltrexone HCl [Revia] 50 mg PO DAILY@0800 04/21/21 05/02/21 QUEtiapine [SEROquel] 400 mg PO HS@209904/21/21 05/02/21 Allergies Allergy/AdvReac Type Severity Reaction Status Date / Time No Known Allergies Allergy Verified 05/02/21 16:35 Review of Systems ROS Statement: Those systems with pertinent positive or pertinent negative responses have been documented in the HPI. ROS Other: All systems not noted in ROS Statement are negative. Past Medical History Past Medical History: Chest Pain / Angina, Hypertension Additional Past Medical History / Comment(s): ETOH History of Any Multi-Drug Resistant Organisms: None Reported Past Surgical History: Orthopedic Surgery Additional Past Surgical History / Comment(s): Right knee surgery and salma placed in left femur, 3 surgeries on his eyes. Past Anesthesia/Blood Transfusion Reactions: No Reported Reaction Past Psychological History: Anxiety, Bipolar, Depression, Schizoaffective Disorder Smoking Status: Current every day smoker Past Alcohol Use History: Abuse, Daily, Heavy Past Drug Use History: None Reported - Past Family History Mother Additional Family Medical History / Comment(s): Mother at age 36 from motor vehicle accident. His father is also past but does not know the cause or his age. Patient has 3 brothers that are apparently without major medical problems. General Exam - General Exam Comments Initial Comments: GENERAL: Patient is well-developed and well-nourished. Patient is nontoxic and well- hydrated and is in no acute distress. Patient does appear intoxicated ENT: Neck is soft and supple. No significant lymphadenopathy is noted. Oropharynx is clear. Moist mucous membranes. Neck has full range of motion without eliciting any pain. EYES: The sclera were anicteric and conjunctiva were pink and moist. Extraocular movements were intact and pupils were equal round and reactive to light. Eyelids were unremarkable. PULMONARY: Unlabored respirations. Good breath sounds bilaterally. No audible rales rhonchi or wheezing was noted. CARDIOVASCULAR: There is a regular rate and rhythm without any murmurs gallops or rubs. ABDOMEN: Soft and nontender with normal bowel sounds. SKIN: Skin is clear with no lesions or rashes and otherwise unremarkable. NEUROLOGIC: Patient is alert and oriented x3. Cranial nerves II through XII are grossly intact. Motor and sensory are also intact. Normal speech, volume and content. Symmetrical smile. MUSCULOSKELETAL: Normal extremities with adequate strength and full range of motion. LYMPHATICS: No significant lymphadenopathy is noted PSYCHIATRIC: Patient denies suicidal or homicidal ideations. Limitations: no limitations Course Vital Signs 05/02/21 16:30 Temperature 98.8 F Pulse Rate 90 Respiratory 18 Rate Blood Pressure 106/74 O2 Sat by Pulse 95 Oximetry Medical Decision Making - Medical Decision Making I will begin the room to reevaluate the patient he stated he was not suicidal and he wanted to be discharged. Patient denies ever having wanted to kill himself and he states he will be safe if he leaves the emergency department. Patient ambulates normally and is steady. Patient is able to carry on a conversation and appears sober at this time Disposition Clinical Impression: Alcohol intoxication Disposition: HOME SELF-CARE Instructions (If sedation given, give patient instructions): Alcohol Intoxication (ED) Is patient prescribed a controlled substance at d/c from ED?: No Referrals: Kermit Partida MD [Primary Care Provider] - 1-2 days Time of Disposition: 20:20
[2021-05-02 20:47] VITALS: BP 122/76; PULSE 93; TEMP 98.1
== END 2021-05-02 20:45 | disposition home or self-care (01) ==
LOC: EC 16:17
DX: F10.129 Alcohol abuse with intoxication, unspecified (principal); F32.9 Major depressive disorder, single episode, unspecified; I10 Essential (primary) hypertension; F25.9 Schizoaffective disorder, unspecified
CPT/HCPCS: 82075; 99283; 99284

== ENCOUNTER 2021-05-12 03:53 | Emergency (ER) | payer OTHER ==
[2021-05-12 04:00] VITALS: TEMP 98.2
--- NOTE | 2021-05-12 04:05 | ED ---
Alcohol HPI - General Chief Complaint: Alcohol Stated Complaint: ETOH Time Seen by Provider: 05/12/21 03:59 Source: patient, police, RN notes reviewed, old records reviewed Mode of arrival: ambulatory Limitations: no limitations - History of Present Illness Initial Comments: This is a 55-year-old male DF for evaluation. Patient found intoxicated with p ossible fall. Patient doesn't know suggestive some bleeding or dried blood on his face. Patient unsure where he came from denying fall. Patient denying headache or complaint of pain. No neck pain. No other complaints. 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) Previous Visits for Alcohol Intoxication?: Yes Recent Trauma: Yes Associated Symptoms: denies other symptoms Treatments Prior to Arrival: none Chronic Alcohol Use: Yes - Related Data Home Medications Medication Instructions Recorded Confirmed Omeprazole 20 mg PO DAILY@0800 01/09/21 05/02/21 Atorvastatin [Lipitor] 20 mg PO HS@2100 01/19/21 05/02/21 amLODIPine [Norvasc] 5 mg PO DAILY@0800 01/19/21 05/02/21 Cholecalciferol (Vitamin D3) 125 mcg PO DAILY@0800 01/26/21 05/02/21 [Vitamin D3 (5000 Iu)] FLUoxetine HCL [PROzac] 60 mg PO DAILY@0800 04/21/21 05/02/21 [place] Carbonate 600 mg PO HS@2100 04/21/21 05/02/21 Mirtazapine 30 mg PO HS@2100 04/21/21 05/02/21 Naltrexone HCl [Revia] 50 mg PO DAILY@0800 04/21/21 05/02/21 QUEtiapine [SEROquel] 400 mg PO HS@2100 04/21/21 05/02/21 Allergies Allergy/AdvReac Type Severity Reaction Status Date / Time No Known Allergies Allergy Verified 05/12/21 04:00 Review of Systems ROS Statement: Those systems with pertinent positive or pertinent negative responses have been documented in the HPI. ROS Other: All systems not noted in ROS Statement are negative. Past Medical History Past Medical History: Chest Pain / Angina, Hypertension Additional Past Medical History / Comment(s): ETOH History of Any Multi-Drug Resistant Organisms: None Reported Past Surgical History: Orthopedic Surgery Additional Past Surgical History / Comment(s): Right knee surgery and salma placed in left femur, 3 surgeries on his eyes. Past Anesthesia/Blood Transfusion Reactions: No Reported Reaction Past Psychological History: Anxiety, Bipolar, Depression, Schizoaffective Disorder Smoking Status: Current every day smoker Past Alcohol Use History: Abuse, Daily, Heavy Past Drug Use History: None Reported - Past Family History Mother Additional Family Medical History / Comment(s): Mother at age 36 from motor vehicle accident. His father is also past but does not know the cause or his age. Patient has 3 brothers that are apparently without major medical problems. General Exam Limitations: no limitations General appearance: alert, in no apparent distress Head exam: Present: atraumatic, normocephalic, normal inspection Eye exam: Present: normal appearance, PERRL, EOMI. Absent: scleral icterus, co njunctival injection, periorbital swelling ENT exam: Present: normal exam, mucous membranes moist Neck exam: Present: normal inspection. Absent: tenderness, meningismus, lymphadenopathy Respiratory exam: Present: normal lung sounds bilaterally. Absent: respiratory distress, wheezes, rales, rhonchi, stridor Cardiovascular Exam: Present: regular rate, normal rhythm, normal heart sounds. Absent: systolic murmur, diastolic murmur, rubs, gallop, clicks GI/Abdominal exam: Present: soft, normal bowel sounds. Absent: distended, tenderness, guarding, rebound, rigid Extremities exam: Present: normal inspection, full ROM, normal capillary refill. Absent: tenderness, pedal edema, joint swelling, calf tenderness Back exam: Present: normal inspection Neurological exam: Present: alert, oriented X3, CN II-XII intact Psychiatric exam: Present: normal affect, normal mood Skin exam: Present: warm, dry, intact, normal color. Absent: rash Course Vital Signs 05/12/21 03:54 Temperature 98.2 F Pulse Rate 75 Respiratory 22 Rate Blood Pressure 132/83 O2 Sat by Pulse 96 Oximetry - Reevaluation(s) Reevaluation #1: 05/12/21 05:48 Medical record is reviewed Reevaluation #2: 05/12/21 05:48 Patient remains awake and alert throughout ER stay Reevaluation #3: 05/12/21 05:48 patient continues to say that is not homicidal or suicidal, patient informed of results Medical Decision Making - Medical Decision Making 55 male DF for evaluation of fall for genetic injury, patient known alcoholic. No triadic injury noted and patient can be discharged home - Radiology Data Radiology results: report reviewed (CT brain C-spine and facial is negative for acute disease), image reviewed Disposition Clinical Impression: Alcohol abuse, Alcohol dependence, Head contusion, Fall Disposition: HOME SELF-CARE Condition: Good Instructions (If sedation given, give patient instructions): Alcohol Intoxication (ED) Is patient prescribed a controlled substance at d/c from ED?: No Referrals: Kermit Partida MD [Primary Care Provider] - 1-2 days
--- NOTE | 2021-05-12 05:00 | CT ---
EXAMINATION TYPE: CT brain cspine wo con DATE OF EXAM: 05/12/2021 COMPARISON: 04/30/2021 HISTORY: fall CT DLP: 1111.5 mGycm Automated exposure control for dose reduction was used. Images of the brain and cervical spine without contrast. There is enlargement of the ventricles. There is no evidence of periventricular edema. There is no ma ss effect nor midline shift. There is no sign of intracranial hemorrhage. There is thinning of the co rpus callosum. Calvarium is intact. There is old 2 level fusion surgery from C4 to C7. There is C7-T1 moderate spur formation at the endp lates. Facet joints are intact. IMPRESSION: Hydrocephalus. Cervical spine fusion surgery. No acute abnormality of the brain and cervical spine. N o change compared to recent exam.
--- NOTE | 2021-05-12 05:03 | CT ---
EXAMINATION TYPE: CT facial bones wo con DATE OF EXAM: 05/12/2021 COMPARISON: 05/18/2016 HISTORY: fall Pain CT DLP: 1111.5 mGycm Automated exposure control for dose reduction was used. Images obtained from the bottom of the mandible to the top of the frontal sinuses without contrast. Mandibular ring is intact. The temporomandibular joints appear intact. Zygomatic arches appear normal . Maxilla is intact. Nasal bone appears intact. There is no evidence of orbital blowout fracture. The re is no evidence of retro-orbital mass. The globes are symmetric. Orbital margins are intact. There is fairly normal aeration of the paranasal sinuses. Temporal bones are intact. IMPRESSION: Negative CT scan of the facial bones. No fracture. No significant change compared to old exam. There is clearing of the small mucus retention cysts in the maxillary sinuses compared to old exam.
[2021-05-12 06:53] VITALS: BP 115/72; PULSE 94; RESP 16
== END 2021-05-12 06:53 | disposition home or self-care (01) ==
LOC: EC 03:53
DX: F10.229 Alcohol dependence with intoxication, unspecified (principal); S00.93XA Contusion of unspecified part of head, initial encounter; I10 Essential (primary) hypertension; F31.9 Bipolar disorder, unspecified; F41.9 Anxiety disorder, unspecified; F25.9 Schizoaffective disorder, unspecified; F17.200 Nicotine dependence, unspecified, uncomplicated; Z98.1 Arthrodesis status; W18.30XA Fall on same level, unspecified, initial encounter; Y90.9 Presence of alcohol in blood, level not specified
CPT/HCPCS: 70450; 70486; 72125; 82075; 99284

== ENCOUNTER 2021-05-13 02:03 | Emergency (ER) | payer OTHER ==
[2021-05-13 02:16] VITALS: RESP 18
--- NOTE | 2021-05-13 02:26 | ED ---
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) Previous Visits for Alcohol Intoxication?: Yes Recent Trauma: Yes Associated Symptoms: denies other symptoms Treatments Prior to Arrival: other Chronic Alcohol Use: Yes - Related Data Home Medications Medication Instructions Recorded Confirmed Omeprazole 20 mg PO DAILY@00 01/09/21 05/02/21 Atorvastatin [Lipitor] 20 mg PO HS@209901/19/21 05/02/21 amLODIPine [Norvasc] 5 mg PO DAILY@0801/19/21 05/02/21 Cholecalciferol (Vitamin D3) 125 mcg PO DAILY@79901/26/21 05/02/21 [Vitamin D3 (5000 Iu)] FLUoxetine HCL [PROzac] 60 mg PO DAILY@0804/21/21 05/02/21 [place] Carbonate 600 mg PO HS@209904/21/21 05/02/21 Mirtazapine 30 mg PO HS@209904/21/21 05/02/21 Naltrexone HCl [Revia] 50 mg PO DAILY@0800 04/21/21 05/02/21 QUEtiapine [SEROquel] 400 mg PO HS@209904/21/21 05/02/21 Allergies Allergy/AdvReac Type Severity Reaction Status Date / Time No Known Allergies Allergy Verified 05/12/21 04:00 Review of Systems ROS Statement: Those systems with pertinent positive or pertinent negative responses have been documented in the HPI. ROS Other: All systems not noted in ROS Statement are negative. Past Medical History Past Medical History: Chest Pain / Angina, Hypertension Additional Past Medical History / Comment(s): ETOH History of Any Multi-Drug Resistant Organisms: None Reported Past Surgical History: Orthopedic Surgery Additional Past Surgical History / Comment(s): Right knee surgery and salma placed in left femur, 3 surgeries on his eyes. Past Anesthesia/Blood Transfusion Reactions: No Reported Reaction Past Psychological History: Anxiety, Bipolar, Depression, Schizoaffective Disorder Smoking Status: Current every day smoker Past Alcohol Use History: Abuse, Daily, Heavy Past Drug Use History: None Reported - Past Family History Mother Additional Family Medical History / Comment(s): Mother at age 36 from motor vehicle accident. His father is also past but does not know the cause or his age. Patient has 3 brothers that are apparently without major medical problems. General Exam General appearance: alert, in no apparent distress Head exam: Present: atraumatic, normocephalic, normal inspection Eye exam: Present: normal appearance, PERRL, EOMI. Absent: scleral icterus, conjunctival injection, periorbital swelling ENT exam: Present: normal exam, mucous membranes moist Neck exam: Present: normal inspection. Absent: tenderness, meningismus, lymphadenopathy Respiratory exam: Present: normal lung sounds bilaterally. Absent: respiratory distress, wheezes, rales, rhonchi, stridor Cardiovascular Exam: Present: regular rate, normal rhythm, normal heart sounds. Absent: systolic murmur, diastolic murmur, rubs, gallop, clicks GI/Abdominal exam: Present: soft, normal bowel sounds. Absent: distended, tenderness, guarding, rebound, rigid Extremities exam: Present: normal inspection, full ROM, normal capillary refill. Absent: tenderness, pedal edema, joint swelling, calf tenderness Back exam: Present: normal inspection Neurological exam: Present: alert, oriented X3, CN II-XII intact Psychiatric exam: Present: normal affect, normal mood Skin exam: Present: warm, dry, intact, normal color. Absent: rash Course Vital Signs 05/13/21 02:11 Temperature 98.3 F Pulse Rate 84 Respiratory 18 Rate Blood Pressure 158/76 O2 Sat by Pulse 96 Oximetry - Reevaluation(s) Reevaluation #1: 05/13/21 02:26 Medical record is reviewed Reevaluation #2: 05/13/21 04:28 Patient is clinically sober, able to ambulate without difficulty Reevaluation #3: 05/13/21 04:28 Patient denies homicidal or suicidal thoughts Medical Decision Making - Medical Decision Making 55 male to the ER for evaluation. Patient will be discharged home Disposition Clinical Impression: Alcohol dependence, continuous Disposition: HOME SELF-CARE Condition: Fair Instructions (If sedation given, give patient instructions): Alcohol Intoxication (ED) Is patient prescribed a controlled substance at d/c from ED?: No Referrals: Kermit Partida MD [Primary Care Provider] - 1-2 days
--- NOTE | 2021-05-13 08:01 | CT ---
EXAMINATION TYPE: CT brain carsonine wo con DATE OF EXAM: 05/13/2021 COMPARISON: 05/12/2021 HISTORY: Fall, ETOH CT DLP: 1314.[address] of the brain was performed. The ventricles, basal cisterns and sulci overlying the cerebral convexities demonstrate moderately se sunny enlargement. There is no evidence for intracranial hemorrhage or sulcal effacement. There is decreased attenuatio n patellar reschedule at its echogenicity reschedule I can't that half hour there are half hour back in [place] 1520 minutes Procedure attending also represents the abdomen several Little rheumatoid cranium in the corner the periventricular white matter and deep white matter of both cerebral hemispheres, compatible with chronic small vessel ischemia. No mass effects are seen. If symptoms persist consider MRI. Osseous calvarium is intact. Occipital scalp hematoma. IMPRESSION: 1. Age related atrophic and chronic small vessel ischemic change without acute intracranial process seen at this time. Moderately severe hydrocephalus. CT Cervical Spine: Unenhanced CT of the cervical spine was performed with bone and soft tissue window settings submitted . Coronal and sagittal reconstruction is obtained. There is normal alignment and prevertebral soft tissues. No evidence for acute cervical fracture . Fusion changes unchanged. Scattered degenerative disc disease and spondylosis. Biapical scarring. IMPRESSION: 1. No evidence for acute fracture or subluxation of the cervical spine.
[2021-05-13 11:40] VITALS: BP 122/70; PULSE 84; TEMP 98
== END 2021-05-13 11:40 | disposition home or self-care (01) ==
LOC: EC 02:03
DX: F10.229 Alcohol dependence with intoxication, unspecified (principal); I10 Essential (primary) hypertension; F17.200 Nicotine dependence, unspecified, uncomplicated; F31.9 Bipolar disorder, unspecified; F41.9 Anxiety disorder, unspecified; F25.9 Schizoaffective disorder, unspecified; Y90.9 Presence of alcohol in blood, level not specified
CPT/HCPCS: 70450; 72125; 99284

== ENCOUNTER 2021-05-13 21:21 | Observation (INO) | payer OTHER ==
[2021-05-13] MEDS ORDERED: LORazepam 2 MG/ML INJ IV PRN ×3 (21:24)
[2021-05-13] MEDS ORDERED: SODIUM CHLORIDE 0.9% 1,000 ML IV STA ×2 (21:24)
[2021-05-13] MEDS ORDERED: DEXTROSE 50% SYRINGE 50 ML IVP STA (21:24)
[2021-05-13] MEDS ORDERED: THIAMINE 500 MG in SODIUM CHLORIDE 0.9% 50 ML IVPB STA (21:29)
--- NOTE | 2021-05-13 21:32 | ED ---
Alcohol HPI - General Chief Complaint: Fall Stated Complaint: ETOH,Fall Time Seen by Provider: 05/13/21 21:23 Source: patient, EMS Mode of arrival: EMS Limitations: no limitations - History of Present Illness Initial Comments: This is a 55-year-old male to the ER for evaluation. Patient won't our facility for alcohol intoxication. This is multiple ER visits and repeat days for being found wandering around and not acting appropriate and pelvic sleeping in the streets following down in abnormal places. Patient is significantly intoxicated on arrival. 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) Previous Visits for Alcohol Intoxication?: Yes Recent Trauma: Yes Associated Symptoms: nausea, vomiting, diaphoresis, depression Treatments Prior to Arrival: none Chronic Alcohol Use: Yes - Related Data Home Medications Medication Instructions Recorded Confirmed RX: Omeprazole 20 mg PO DAILY@79901/09/21 05/13/21 RX: Atorvastatin [Lipitor] 20 mg PO HS@209901/19/21 05/13/21 RX: amLODIPine [Norvasc] 5 mg PO DAILY@79901/19/21 05/13/21 RX: Cholecalciferol (Vitamin D3) 125 mcg PO DAILY@79901/26/21 05/13/21 [Vitamin D3 (5000 Iu)] Naltrexone HCl [Revia] 50 mg PO DAILY@79904/21/21 05/13/21 QUEtiapine [SEROquel] 400 mg PO HS@199904/21/21 05/13/21 RX: FLUoxetine HCL [PROzac] 60 mg PO DAILY@79904/21/21 05/13/21 RX: [place] Carbonate 600 mg PO HS@209904/21/21 05/13/21 RX: Mirtazapine 30 mg PO HS@209904/21/21 05/13/21 Allergies Allergy/AdvReac Type Severity Reaction Status Date / Time No Known Allergies Allergy Verified 05/13/21 21:29 Review of Systems ROS Statement: Those systems with pertinent positive or pertinent negative responses have been documented in the HPI. ROS Other: All systems not noted in ROS Statement are negative. Past Medical History Past Medical History: Chest Pain / Angina, Hypertension Additional Past Medical History / Comment(s): ETOH History of Any Multi-Drug Resistant Organisms: None Reported Past Surgical History: Orthopedic Surgery Additional Past Surgical History / Comment(s): Right knee surgery and salma placed in left femur, 3 surgeries on his eyes. Past Anesthesia/Blood Transfusion Reactions: No Reported Reaction Past Psychological History: Anxiety, Bipolar, Depression, Schizoaffective Disorder Smoking Status: Current every day smoker Past Alcohol Use History: Abuse, Daily, Heavy Past Drug Use History: None Reported - Past Family History Mother Additional Family Medical History / Comment(s): Mother at age 36 from motor vehicle accident. His father is also past but does not know the cause or his age. Patient has 3 brothers that are apparently without major medical problems. General Exam Limitations: no limitations General appearance: alert, in no apparent distress, appears intoxicated, anxious Head exam: Present: atraumatic, normocephalic, normal inspection Eye exam: Present: normal appearance, PERRL, EOMI. Absent: scleral icterus, conjunctival injection, periorbital swelling ENT exam: Present: normal exam, mucous membranes moist Neck exam: Present: normal inspection. Absent: tenderness, meningismus, lymphadenopathy Respiratory exam: Present: normal lung sounds bilaterally. Absent: respiratory distress, wheezes, rales, rhonchi, stridor Cardiovascular Exam: Present: regular rate, normal rhythm, normal heart sounds. Absent: systolic murmur, diastolic murmur, rubs, gallop, clicks GI/Abdominal exam: Present: soft, normal bowel sounds. Absent: distended, tenderness, guarding, rebound, rigid Extremities exam: Present: normal inspection, full ROM, normal capillary refill. Absent: tenderness, pedal edema, joint swelling, calf tenderness Back exam: Present: normal inspection Neurological exam: Present: alert, oriented X3, CN II-XII intact Psychiatric exam: Present: normal affect, normal mood Skin exam: Present: warm, dry, intact, normal color. Absent: rash Course Vital Signs 05/13/21 05/13/21 21:24 22:37 Temperature 99.0 F Pulse Rate 72 90 Respiratory 18 18 Rate Blood Pressure 149/103 146/90 O2 Sat by Pulse 96 97 Oximetry - Reevaluation(s) Reevaluation #1: 05/13/21 23:06 Medical record is reviewed Reevaluation #2: 05/13/21 23:06 Prior ER visits of also been reviewed Reevaluation #3: 05/13/21 23:06 Patient remains altered throughout ER stay - Consultations Consultation #1: Spoke with Dr. Partida who agrees to admit this patient Medical Decision Making - Medical Decision Making 55 male to the ER for evaluation patient presents today for evaluation of persistent weakness alcohol intoxication. Patient will be admitted for supportive care, likely Wernicke encephalopathy and ataxia, underlying depression - Lab Data Result diagrams: 05/13/21 21:39 05/13/21 21:39 Lab Results 05/13/21 05/13/21 Range/Units 21:39 21:39 WBC 16.9 H (3.8-10.6) k/uL RBC 4.61 (4.30-5.90) m/uL Hgb 13.9 (13.0-17.5) gm/dL Hct 41.4 (39.0-53.0) % MCV 89.9 (80.0-100.0) fL MCH 30.2 (25.0-35.0) pg MCHC 33.5 (31.0-37.0) g/dL RDW 14.2 (11.5-15.5) % Plt Count 394 (150-450) k/uL MPV 8.1 Neutrophils % 78 % Lymphocytes % 11 % Monocytes % 9 % Eosinophils % 1 % Basophils % 0 % Neutrophils # 13.1 H (1.3-7.7) k/uL Lymphocytes # 1.8 (1.0-4.8) k/uL Monocytes # 1.5 H (0-1.0) k/uL Eosinophils # 0.1 (0-0.7) k/uL Basophils # 0.1 (0-0.2) k/uL Sodium 137 (137-145) mmol/L Potassium 3.6 (3.5-5.1) mmol/L Chloride 101 (98-107) mmol/L Carbon Dioxide 21 L (22-30) mmol/L Anion Gap 15 mmol/L BUN 7 L (9-20) mg/dL Creatinine 0.64 L (0.66-1.25) mg/dL Est GFR (CKD-EPI)AfAm >90 (>60 ml/min/1.73 sqM) Est GFR (CKD-EPI)NonAf >90 (>60 ml/min/1.73 sqM) Glucose 92 (74-99) mg/dL Calcium 9.1 (8.4-10.2) mg/dL Phosphorus 1.8 L (2.5-4.5) mg/dL Magnesium 2.3 (1.6-2.3) mg/dL Total Bilirubin 0.5 (0.2-1.3) mg/dL AST 42 (17-59) U/L ALT 14 (4-49) U/L Alkaline Phosphatase 165 H (38-126) U/L Total Protein 7.1 (6.3-8.2) g/dL Albumin 4.4 (3.5-5.0) g/dL Lipase 284 (23-300) U/L Serum Alcohol 143 mg/dL Disposition Clinical Impression: Alcohol abuse, Major depression, Gravely disabled, Wernickes encephalopathy, Ataxia Disposition: ADMITTED IP TO THIS HOSP Condition: Fair Is patient prescribed a controlled substance at d/c from ED?: No
[2021-05-13] MEDS: THIAMINE 100 MG TAB PO SCH (22:11)
[2021-05-13 22:25] LABS: Basophils # (A) 0.1 k/uL (0-0.2); Basophils % (A) 0 %; Eosinophils # (A) 0.1 k/uL (0-0.7); Eosinophils % (A) 1 %; HCT 41.4 % (39.0-53.0); HGB 13.9 gm/dL (13.0-17.5); Lymphocytes # (A) 1.8 k/uL (1.0-4.8); Lymphocytes % (A) 11 %; MCH 30.2 pg (25.0-35.0); MCHC 33.5 g/dL (31.0-37.0); MCV 89.9 fL (80.0-100.0); Mean Platelet Volume 8.1; Monocytes # (A) 1.5 k/uL (0-1.0); Monocytes % (A) 9 %; Neutrophils # (A) 13.1 k/uL (1.3-7.7); Neutrophils % (A) 78 %; Platelet Count 394 k/uL (150-450); RBC 4.61 m/uL (4.30-5.90); RDW 14.2 % (11.5-15.5); WBC 16.9 k/uL (3.8-10.6)
[2021-05-13 23:02] LABS: African American GFR (CKD) >90 (>60 ml/min/1.73 sqM); Anion Gap 15 mmol/L; Blood Urea Nitrogen 7 mg/dL (9-20); Carbon Dioxide 21 mmol/L (22-30); Chloride 101 mmol/L (98-107); Glucose 92 mg/dL (74-99); Potassium 3.6 mmol/L (3.5-5.1); Sodium 137 mmol/L (137-145)
[2021-05-13 23:03] LABS: ALT 14 U/L (4-49); AST 42 U/L (17-59); Albumin 4.4 g/dL (3.5-5.0); Alkaline Phosphatase 165 U/L (38-126); Calcium 9.1 mg/dL (8.4-10.2); Lipase 284 U/L (23-300); Magnesium 2.3 mg/dL (1.6-2.3); Non-African American GFR(CKD) >90 (>60 ml/min/1.73 sqM); Phosphorus 1.8 mg/dL (2.5-4.5); Total Bilirubin 0.5 mg/dL (0.2-1.3); Total Protein 7.1 g/dL (6.3-8.2)
[2021-05-13] MEDS ORDERED: NALOXONE 0.4 MG/ML 1 ML VIAL IV PRN (23:07)
[2021-05-13] MEDS ORDERED: ONDANSETRON 4 MG/2 ML VIAL IVP PRN (23:07)
[2021-05-13 23:18] LABS: Alcohol 143 mg/dL
[2021-05-14] MEDS: SODIUM CHLORIDE 0.9% 1,000 ML IV SCH ×3 (00:14→13:25)
[2021-05-14] MEDS: THIAMINE 500 MG in SODIUM CHLORIDE 0.9% 100 ML IVPB SCH ×3 (05:06→19:34)
[2021-05-14 07:00] LABS: Basophils # (A) 0.1 k/uL (0-0.2); Basophils % (A) 0 %; Eosinophils # (A) 0.1 k/uL (0-0.7); Eosinophils % (A) 1 %; HCT 41.2 % (39.0-53.0); HGB 13.5 gm/dL (13.0-17.5); Lymphocytes # (A) 1.9 k/uL (1.0-4.8); Lymphocytes % (A) 14 %; MCH 29.4 pg (25.0-35.0); MCHC 32.7 g/dL (31.0-37.0); MCV 89.8 fL (80.0-100.0); Mean Platelet Volume 7.5; Monocytes # (A) 1.3 k/uL (0-1.0); Monocytes % (A) 10 %; Neutrophils # (A) 9.9 k/uL (1.3-7.7); Neutrophils % (A) 73 %; Platelet Count 386 k/uL (150-450); RBC 4.59 m/uL (4.30-5.90); RDW 14.1 % (11.5-15.5); WBC 13.5 k/uL (3.8-10.6)
[2021-05-14 07:12] LABS: ALT 14 U/L (4-49); AST 51 U/L (17-59); African American GFR (CKD) >90 (>60 ml/min/1.73 sqM); Albumin 3.5 g/dL (3.5-5.0); Alkaline Phosphatase 141 U/L (38-126); Anion Gap 7 mmol/L; Blood Urea Nitrogen 5 mg/dL (9-20); Calcium 8.7 mg/dL (8.4-10.2); Carbon Dioxide 23 mmol/L (22-30); Chloride 106 mmol/L (98-107); Glucose 102 mg/dL (74-99); Lipase 179 U/L (23-300); Magnesium 2.2 mg/dL (1.6-2.3); Non-African American GFR(CKD) >90 (>60 ml/min/1.73 sqM); Phosphorus 2.3 mg/dL (2.5-4.5); Sodium 136 mmol/L (137-145); Total Bilirubin 0.7 mg/dL (0.2-1.3); Total Protein 6.1 g/dL (6.3-8.2)
[2021-05-14] MEDS: PANTOPRAZOLE 40 MG/10 ML VIAL IV SCH (07:44)
[2021-05-14] MEDS: MULTIVITAMINS, THERA 1 EACH TAB PO SCH (07:44)
[2021-05-14] MEDS: THIAMINE 100 MG TAB PO SCH ×2 (07:44→16:29)
[2021-05-14] MEDS: FLUoxetine HCL 20 MG CAP PO SCH (10:40)
[2021-05-14] MEDS: NALTREXONE HCL 50 MG TAB PO SCH (10:40)
[2021-05-14] MEDS: amLODIPine 5 MG TAB PO SCH (10:40)
--- NOTE | 2021-05-14 16:17 | P.CN ---
Psychiatric Consult - . Consult date: 05/14/21 Consult:: 05/14/21 15:47 IDENTIFYING DATA: This patient is a 55-year-old single male with no children. Patient says he is currently homeless REASON FOR REFERRAL: Psychiatry was consulted for alcohol use and suicidal ideation HISTORY OF PRESENT ILLNESS: The patient presented to the hospital with chief complaint of " fall " , subsequently was admitted on the medical floor for alcohol detox. Currently he is on detox protocol with Ativan. His current vitals shows his blood pressure 132/74 and heart rate 75. On meeting with the patient he reported that he has been drinking 8 beers of 16 ounces daily . Patient reported having episodes of being intoxicated and blackout episodes. He states that he had 6 DUIs. He states that he been in alf for his alcohol use disorder. Patient could not remember when was the last time he was sober. Patient states in the past when he stopped drinking alcohol abruptly he got sick, felt anxious , shaky could not sleep. Patient could not remember whether or not he had alcohol withdrawal seizure. Patient reported feeling increasingly depressed, hopeless, helpless and having thoughts of suicide with the plan to jump in front of a car. Patient states he tried to take his medications as prescribed. Patient states that he is on lithium and Seroquel. According to his records he is on lithium 600 mg nightly, Seroquel 400 mg nightly, Prozac 60 mg daily and mirtazapine 30 mg nightly. Patient states that he has had episodes of mood swings, mind racing with low tolerance for frustration and diminished sleep. Patient was unclear whether or not these episodes were under the influence of alcohol. At this time patient denies homical ideations, intent or plan. Patient denies any auditory, visual hallucinations and denies any paranoia or delusions. It should be noted this clinician contacted his public guardian named Delmar May [phone]. According to the guardian the patient has been struggling with his alcohol use. The patient was living at the [facility] but, recently he had left [facility] unannounced. PAST PSYCHIATRIC HISTORY: Patient has a a history of bipolar disorder and alcohol use disorder. Currently he is on lithium, Seroquel, Prozac and mirtaza pine. Management was under the care of [facility]. The patient has had 2 or 3 previous inpatient psychiatric admissions. According to his records he was in this facility in February 2021 . According to the patient in the past he attempted suicide by jumping into a moving traffic PAST MEDICAL HISTORY: Hypertension, Chest Pain / Angina ALLERGIES: as per EMR. CHEMICAL DEPENDENCY HISTORY: Oriented to the patient he smokes 1 pack of cigarettes daily, patient states that he has been drinking 8 beers of 16 ounce nightly. Patient reported having episodes of being intoxicated, blackout episodes and number of DUIs. He denies smoking marijuana or using any other illicit drugs FAMILY PSYCHIATRIC/SUBSTANCE USE HISTORY: Patient states his father had alcoholism SOCIAL HISTORY: Patient was born and raised in in [place]. Patient states his parents are . Patient states that he received GED. 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 He denied being a victim of abuse. States that he has 3 brothers. Patient could not identify anyone in his support system MENTAL STATUS EXAM: General Appearance: Patient appears to be stated age is alert, pleasant, and cooperative. Patient appears to have poor hygiene and grooming wearing hospital gown with poor eye contact. Behavior: Patient is calmly lying in bed without any agitated behavior. Speech: Patient's speech is fluent and nonpressured. Mood/Affect: Patient reports their mood is "depressed", affect is congruent Suicidality/Homicidality: Patient admits to having suicidal . Denies homicidal ideation intent or plan. Perceptions: Patient denies any visual hallucinations and denies any auditory hallucinations Though content/process: There is no evidence of any delusional thought content and thought process is linear and goal-directed. Memory and concentration: AOX3, grossly intact for the purposes of this session. Can spell "WORLD" backwards Judgment and insight: poor IMPRESSIONS: Bipolar type I disorder, current episodes depressed Alcohol use disorder, withdrawal Nicotine disorder PLAN: - recommended to have a sitter -At this time patient DOES meet criteria for inpatient psychiatric admission. -When medically stable, patient is eligible for transfer to a psych bed when available -CIWA protocol with PRN Ativan for alcohol withdrawal. Continue to monitor vital signs. - Contniue lithium, Seroquel , Prozac and mirtazapine check lithium level stat. repeat CMP and CBC tomorrow. -Cannot leave AMA at this time. Patient will need a petition and certification if attempting to leave AMA. -Manager Power spoke with patient about substance abuse and the harmful effects on medical and mental health, patient verbally understood and agreed. -Communicated plan to patient's nurse -Will continue to follow along -Please contact with any questions. 05/14/21 16:03 05/14/21 16:12 05/14/21 16:15
--- NOTE | 2021-05-14 16:55 | HP ---
HISTORY AND PHYSICAL CHIEF COMPLAINT: Acute alcohol intoxication, chronic alcoholism and alcoholic encephalopathy with alcoholic hepatitis. HISTORY OF PRESENT ILLNESS: This is another admission for this 55-year-old male. Apparently he has been coming into the emergency room intoxicated every night for the last 4 or 5 days. He also has been extremely confused and it is wondered if he is developing alcoholic encephalopathy. REVIEW OF SYSTEMS: Unobtainable. Past medical history, family history personal and social histories are all otherwise unobtainable. He is not allergic to any medication. He has been on numerous medications in the past and he has not been in the office since 2017. His MAR suggests that he is taking certain medications which are detailed there. PHYSICAL EXAMINATION: Blood pressure is 130/90 with a pulse of 92, respirations of 40 and he is afebrile. In general, appeared to be disheveled and lethargic. Skin color was normal. Head, ears, eyes, nose, mouth and throat were normal except for strabismus. Chest demonstrated occasional rhonchi. Cardiac exam demonstrated sinus tachycardia. The abdomen is flat and soft and seemed to be nontender and there was no definite visceromegaly or masses. Bowel sounds are present and extremities are normal. Neurologically he was intoxicated. He was admitted to the hospital with diagnoses: 1. Acute alcohol intoxication. 2. Chronic alcoholism. 3. Alcoholic hepatitis. 4. Encephalopathy. PLAN: 1. Bedrest. 2. IV fluids. 3. CIWA protocol. MMSHAJIL / SARAH: [id number] /
--- NOTE | 2021-05-14 16:59 | PN ---
PROGRESS NOTE DATE OF SERVICE: 05/14/2021. CHIEF COMPLAINT: Acute alcohol intoxication. HISTORY OF PRESENT ILLNESS: This gentleman remains intoxicated. He has had no other activity so far. There has been no seizure activity. PHYSICAL EXAMINATION: He is arousable. Chest is clear. Cardiac exam is normal. Abdomen is soft, nontender. Blood pressure is 149/103. IMPRESSION: 1. Acute alcohol intoxication. 2. Chronic alcoholism. 3. Alcoholic hepatitis. 4. Possible alcoholic encephalopathy. PLAN: Continue with IV fluids and CIWA protocol. MMODL / BHAVNAN: [id number] /
[2021-05-14] MEDS ORDERED: QUEtiapine 400 MG TAB PO SCH (20:00)
[2021-05-14] MEDS ORDERED: MIRTAZAPINE 15 MG TAB PO SCH (21:00)
[2021-05-14] MEDS ORDERED: LITHIUM CARBONATE 300 MG CAP PO SCH (21:00)
[2021-05-15] MEDS: THIAMINE 500 MG in SODIUM CHLORIDE 0.9% 100 ML IVPB SCH ×2 (03:53→12:04)
[2021-05-15] MEDS: SODIUM CHLORIDE 0.9% 1,000 ML IV SCH ×2 (04:45→07:13)
[2021-05-15] MEDS: amLODIPine 5 MG TAB PO SCH (07:12)
[2021-05-15] MEDS: THIAMINE 100 MG TAB PO SCH (07:12)
[2021-05-15] MEDS: PANTOPRAZOLE 40 MG/10 ML VIAL IV SCH (07:12)
[2021-05-15] MEDS: FLUoxetine HCL 20 MG CAP PO SCH (07:12)
[2021-05-15] MEDS: NALTREXONE HCL 50 MG TAB PO SCH (07:12)
[2021-05-15] MEDS: MULTIVITAMINS, THERA 1 EACH TAB PO SCH (07:12)
[2021-05-15] MEDS ORDERED: NON FORMULARY DRUG (Omeprazole [Omeprazole] 20 MG Capsule.Dr) PO SCH (08:00)
[2021-05-15 08:09] VITALS: RESP 18
[2021-05-15 10:56] LABS: Basophils % (A) 0 %; Eosinophils # (A) 0.2 k/uL (0-0.7); Eosinophils % (A) 2 %; HCT 38.4 % (39.0-53.0); HGB 12.4 gm/dL (13.0-17.5); Lymphocytes # (A) 1.5 k/uL (1.0-4.8); Lymphocytes % (A) 15 %; MCH 29.5 pg (25.0-35.0); MCHC 32.2 g/dL (31.0-37.0); MCV 91.7 fL (80.0-100.0); Monocytes # (A) 0.7 k/uL (0-1.0); Monocytes % (A) 8 %; Neutrophils # (A) 7.2 k/uL (1.3-7.7); Neutrophils % (A) 74 %; Platelet Count 306 k/uL (150-450); RBC 4.19 m/uL (4.30-5.90); RDW 14.3 % (11.5-15.5); WBC 9.7 k/uL (3.8-10.6)
[2021-05-15 11:09] LABS: ALT 44 U/L (4-49); AST 94 U/L (17-59); African American GFR (CKD) >90 (>60 ml/min/1.73 sqM); Albumin 2.9 g/dL (3.5-5.0); Albumin/Globulin Ratio 1.2; Alkaline Phosphatase 107 U/L (38-126); Anion Gap 6 mmol/L; Blood Urea Nitrogen 4 mg/dL (9-20); Calcium 8.4 mg/dL (8.4-10.2); Carbon Dioxide 22 mmol/L (22-30); Chloride 112 mmol/L (98-107); Globulin 2.5 g/dL; Glucose 105 mg/dL (74-99); Non-African American GFR(CKD) >90 (>60 ml/min/1.73 sqM); Potassium 3.3 mmol/L (3.5-5.1); Sodium 140 mmol/L (137-145); Total Bilirubin 0.6 mg/dL (0.2-1.3); Total Protein 5.4 g/dL (6.3-8.2)
[2021-05-15 11:12] LABS: INR 0.9 (<1.2); Prothrombin Time 10.2 sec (9.0-12.0)
[2021-05-15] MEDS ORDERED: POTASSIUM CHLORIDE ER 20 MEQ TAB.ER PO STA (11:30)
[2021-05-15 13:07] VITALS: BP 138/82; PULSE 71; TEMP 97.9
--- NOTE | 2021-05-15 13:18 | XR ---
EXAMINATION TYPE: XR chest 2V DATE OF EXAM: 05/15/2021 COMPARISON: NONE TECHNIQUE: PA and lateral views submitted. HISTORY: Shortness of breath FINDINGS: The lungs are clear and there is no pneumothorax, pleural effusion, or focal pneumonia. No overt fa ilure. Degenerative change of the spine. Mild hyperexpansion. Chronic AC joint injury involving the r ight clavicle. IMPRESSION: 1. No acute process. Correlate for mild COPD.
--- NOTE | 2021-05-15 13:21 | PN ---
PROGRESS NOTE CHIEF COMPLAINT: Acute alcohol intact intoxication, chronic alcoholism, alcoholic hepatitis, cirrhosis, and encephalopathy. HISTORY OF PRESENT ILLNESS: This gentleman is still feeling slightly shaky. White blood cell count has come down somewhat. He has been seen by psychiatry and is approved to go psych floor, but I will repeat his laboratory studies today and keep him on the medical service given that he is slightly tremulous and may go into DTs. PHYSICAL EXAM: Strabismus is the same. Chest is clear. Cardiac exam is normal. Abdomen is soft, nontender. He does not seem to be tremulous. IMPRESSION: 1. Impending DTs. 2. Acute alcohol intoxication. 3. Alcoholic encephalopathy. 4. Alcoholic hepatitis. 5. Cirrhosis. PLAN: Repeat laboratory studies and monitor today before clearing to go to the psych service. MMODL / IJN: [id number] /
[2021-05-15] MEDS ORDERED: THIAMINE 100 MG TAB PO SCH (17:30)
[2021-05-15] MEDS ORDERED: POTASSIUM CHLORIDE ER 20 MEQ TAB.ER PO SCH (22:00)
--- NOTE | 2021-05-17 21:20 | DS ---
DISCHARGE SUMMARY DATE OF SERVICE: 05/15/2021 CHIEF COMPLAINT: Acute alcohol intoxication and DTs. HISTORY OF PRESENT ILLNESS AND PHYSICAL EXAMINATION: Details of this man's history and physical can be found in the initial workup. LABORATORY STUDIES: While he was in the hospital, he had laboratory studies, details of which can be found in the laboratory section of chart. COURSE IN THE HOSPITAL: After admission, he was placed on bedrest and started on intravenous fluids and CIWA protocol. He went into early DTs. He seemed to be fairly stable and then he signed out AGAINST MEDICAL ADVICE on May 15. FINAL DIAGNOSES: 1. Acute alcohol intoxication. 2. Alcoholic hepatitis. 3. DTs. 4. Alcoholic encephalopathy. 5. Strabismus. OPERATIONS: None. CONSULTATION: None. TAHIR / SARAH: [id number] /
== END 2021-05-15 14:32 | disposition left against medical advice (07) ==
LOC: EC 21:21 → 5NMEDONC 23:07
PROVIDERS: ADMIT Family Medicine; ATTEND Family Medicine
DX: F10.229 Alcohol dependence with intoxication, unspecified (principal); F10.239 Alcohol dependence with withdrawal, unspecified; F17.200 Nicotine dependence, unspecified, uncomplicated; F25.9 Schizoaffective disorder, unspecified; F31.9 Bipolar disorder, unspecified; G31.2 Degeneration of nervous system due to alcohol; H50.9 Unspecified strabismus; I10 Essential (primary) hypertension; K70.10 Alcoholic hepatitis without ascites; K74.60 Unspecified cirrhosis of liver
CPT/HCPCS: 96376 ×2; 96361 ×3; 96366; 96375 ×2; 96365; 99285; 36415; 80053 ×3; 82140; 83690 ×2; 80178; 83735 ×2; 84100 ×2; 85025 ×3; 85610; 71046; G0378 ×3; G0480; J3411 ×3; C9113 ×2; 80320

== ENCOUNTER 2021-05-15 21:02 | Emergency (ER) | payer OTHER ==
[2021-05-15 21:18] VITALS: BP 139/88; PULSE 88; RESP 20; TEMP 98.8
[2021-05-15] MEDS ORDERED: DIPH,PERTUS(ACELL)TETVAC-LF 0.5 ML VIAL IM ONE (21:22)
--- NOTE | 2021-05-15 21:23 | ED ---
General Adult HPI - General Chief complaint: Alcohol Stated complaint: ETOH Time Seen by Provider: 05/15/21 21:03 Source: patient, EMS, RN notes reviewed Mode of arrival: EMS Limitations: no limitations - History of Present Illness Initial comments: Patient is a 55-year-old male presenting to the emergency department for a fall. Patient states he tripped and fell on the cement. Patient does have some facial abrasions. Patient denies any loss of consciousness. Patient admits to drinking alcohol and states he drinks daily. No neck or back pain. No chest pain or dyspnea. No abdominal pain. - Related Data Home Medications Medication Instructions Recorded Confirmed Omeprazole 20 mg PO DAILY@79901/09/21 05/15/21 Atorvastatin [Lipitor] 20 mg PO HS@209901/19/21 05/15/21 amLODIPine [Norvasc] 5 mg PO DAILY@79901/19/21 05/15/21 Cholecalciferol (Vitamin D3) 125 mcg PO DAILY@79901/26/21 05/15/21 [Vitamin D3 (5000 Iu)] FLUoxetine HCL [PROzac] 60 mg PO DAILY@79904/21/21 05/15/21 [place] Carbonate 600 mg PO HS@209904/21/21 05/15/21 Mirtazapine 30 mg PO HS@209904/21/21 05/15/21 Naltrexone HCl [Revia] 50 mg PO DAILY@79904/21/21 05/15/21 QUEtiapine [SEROquel] 400 mg PO HS@199904/21/21 05/15/21 Allergies Allergy/AdvReac Type Severity Reaction Status Date / Time No Known Allergies Allergy Verified 05/15/21 21:16 Review of Systems ROS Statement: Those systems with pertinent positive or pertinent negative responses have been documented in the HPI. ROS Other: All systems not noted in ROS Statement are negative. Constitutional: Denies: fever Eyes: Denies: eye pain ENT: Denies: ear pain Respiratory: Denies: cough Cardiovascular: Denies: chest pain Endocrine: Denies: fatigue Gastrointestinal: Denies: abdominal pain Genitourinary: Denies: urgency Musculoskeletal: Denies: back pain Skin: Reports: as per HPI Neurological: Denies: weakness Past Medical History Past Medical History: Chest Pain / Angina, Hypertension Additional Past Medical History / Comment(s): ETOH History of Any Multi-Drug Resistant Organisms: None Reported Past Surgical History: Orthopedic Surgery Additional Past Surgical History / Comment(s): Right knee surgery and salma placed in left femur, 3 surgeries on his eyes. Past Anesthesia/Blood Transfusion Reactions: No Reported Reaction Past Psychological History: Anxiety, Bipolar, Depression, Schizoaffective Disorder Smoking Status: Current every day smoker Past Alcohol Use History: Abuse, Daily, Heavy Past Drug Use History: None Reported - Past Family History Mother Additional Family Medical History / Comment(s): Mother at age 36 from motor vehicle accident. His father is also past but does not know the cause or his age. Patient has 3 brothers that are apparently without major medical problems. General Exam Limitations: no limitations General appearance: alert, in no apparent distress Head exam: Present: other (Facial abrasions) Eye exam: Present: normal appearance, PERRL, EOMI Neck exam: Present: normal inspection. Absent: tenderness Respiratory exam: Present: normal lung sounds bilaterally Cardiovascular Exam: Present: regular rate, normal rhythm GI/Abdominal exam: Present: soft. Absent: tenderness Extremities exam: Present: normal inspection Neurological exam: Present: alert, CN II-XII intact. Absent: motor sensory deficit Expanded Motor strength exam: RUE: 5, LUE: 5, RLE: 5, LLE: 5 Eye Response: (4) open spontaneously Motor Response: (6) obeys commands Verbal Response: (5) oriented Psychiatric exam: Present: normal affect, normal mood Skin exam: Present: normal color Course Vital Signs 05/15/21 21:12 Temperature 98.8 F Pulse Rate 88 Respiratory 20 Rate Blood Pressure 139/88 O2 Sat by Pulse 97 Oximetry Medical Decision Making - Medical Decision Making Patient reevaluated and updated. Patient alert and oriented and has gait consistent with his normal gait. Patient was advised to be observed for 20 more minutes prior to discharge however refused and left. - Radiology Data Radiology results: image reviewed (Computed tomography scan of brain and cervical spine reveal no acute process) Disposition Clinical Impression: Fall, Head contusion Disposition: Left Against Medical Advice Condition: Stable Instructions (If sedation given, give patient instructions): Alcohol Intoxication (ED), Head Injury (ED) Is patient prescribed a controlled substance at d/c from ED?: No Referrals: Kermit Partiad MD [Primary Care Provider] - 1-2 days Time of Disposition: 22:46
[2021-05-15] MEDS ORDERED: THIAMINE 200 MG in SODIUM CHLORIDE 0.9% 100 ML IVPB ONE (21:45)
--- NOTE | 2021-05-15 21:55 | CT ---
EXAMINATION TYPE: CT brain cspine wo con DATE OF EXAM: 05/15/2021 COMPARISON: Multiple CT brains and C-spine most recently dated 05/13/2021 HISTORY: fall CT DLP: 1321.5 mGycm Automated exposure control for dose reduction was used. TECHNIQUE: CT scan of the head and cervical spine are performed without contrast. FINDINGS: There is no acute intracranial hemorrhage, mass effect, or midline shift identified. Similar-appearin g cerebral atrophy with prominence of the ventricular system. The globes are intact and the visualiz ed sinuses are clear. Unchanged nondisplaced fracture of the right zygomatic arch. Cervical spine is visualized in its entirety from C1 through upper thoracic levels without acute frac ture or traumatic subluxation. Straightening of the cervical lordosis likely due to patient positioni ng or muscle spasm. Similar-appearing osseous fusion of the C4-C7 vertebral bodies. Advanced degenera tive changes at the level of C7-T1. Prevertebral soft tissue appears within normal limits. The C1-C2 articulation is unremarkable. IMPRESSION: 1. No acute intracranial process. 2. No acute fracture or subluxation of the cervical spine. 3. Similar appearing chronic prominent ventricular system.
[2021-05-16] MEDS ORDERED: THIAMINE 200 MG in SODIUM CHLORIDE 0.9% 100 ML IVPB SCH (09:00)
== END 2021-05-15 22:54 | disposition left against medical advice (07) ==
LOC: EC 21:02
DX: S00.93XA Contusion of unspecified part of head, initial encounter (principal); I10 Essential (primary) hypertension; F31.9 Bipolar disorder, unspecified; F41.9 Anxiety disorder, unspecified; F17.200 Nicotine dependence, unspecified, uncomplicated; F25.9 Schizoaffective disorder, unspecified; Z79.899 Other long term (current) drug therapy; Z23 Encounter for immunization; W01.0XXA Fall on same level from slipping, tripping and stumbling without subsequent striking against object, initial encounter
CPT/HCPCS: 82075; 72125; 70450; 90715; 90471; 96365; 99284; J3411

== ENCOUNTER 2021-05-18 12:51 | Emergency (ER) | payer OTHER ==
[2021-05-18 13:03] VITALS: RESP 18
--- NOTE | 2021-05-18 13:03 | ED ---
General Adult HPI - General Stated complaint: ETOH Time Seen by Provider: 05/18/21 12:55 Source: patient, EMS, RN notes reviewed Mode of arrival: EMS Limitations: no limitations - History of Present Illness Initial comments: Patient is a 55-year-old male presenting to the emergency department with concerns for alcohol intoxication. Patient drinks daily. Patient was found outside urinating on a building. Police wrote the patient a citation and called to have patient transferred to the hospital. Patient has no complaints at this time. Patient does admit to drinking alcohol today. Patient denies any recent injury. - Related Data Home Medications Medication Instructions Recorded Confirmed Omeprazole 20 mg PO DAILY@79901/09/21 05/15/21 Atorvastatin [Lipitor] 20 mg PO HS@209901/19/21 05/15/21 amLODIPine [Norvasc] 5 mg PO DAILY@79901/19/21 05/15/21 Cholecalciferol (Vitamin D3) 125 mcg PO DAILY@79901/26/21 05/15/21 [Vitamin D3 (5000 Iu)] FLUoxetine HCL [PROzac] 60 mg PO DAILY@79904/21/21 05/15/21 [place] Carbonate 600 mg PO HS@209904/21/21 05/15/21 Mirtazapine 30 mg PO HS@209904/21/21 05/15/21 Naltrexone HCl [Revia] 50 mg PO DAILY@79904/21/21 05/15/21 QUEtiapine [SEROquel] 400 mg PO HS@199904/21/21 05/15/21 Allergies Allergy/AdvReac Type Severity Reaction Status Date / Time No Known Allergies Allergy Verified 05/15/21 21:16 Review of Systems ROS Statement: Those systems with pertinent positive or pertinent negative responses have been documented in the HPI. ROS Other: All systems not noted in ROS Statement are negative. Constitutional: Denies: fever Eyes: Denies: eye pain ENT: Denies: ear pain Respiratory: Denies: cough Cardiovascular: Denies: chest pain Endocrine: Denies: fatigue Gastrointestinal: Denies: abdominal pain Genitourinary: Denies: dysuria Musculoskeletal: Denies: back pain Skin: Denies: rash Neurological: Denies: headache, weakness Past Medical History Past Medical History: Chest Pain / Angina, Hypertension Additional Past Medical History / Comment(s): ETOH History of Any Multi-Drug Resistant Organisms: None Reported Past Surgical History: Orthopedic Surgery Additional Past Surgical History / Comment(s): Right knee surgery and salma placed in left femur, 3 surgeries on his eyes. Past Anesthesia/Blood Transfusion Reactions: No Reported Reaction Past Psychological History: Anxiety, Bipolar, Depression, Schizoaffective Disorder Smoking Status: Current every day smoker Past Alcohol Use History: Abuse, Daily, Heavy Past Drug Use History: None Reported - Past Family History Mother Additional Family Medical History / Comment(s): Mother at age 36 from motor vehicle accident. His father is also past but does not know the cause or his age. Patient has 3 brothers that are apparently without major medical problems. General Exam Limitations: no limitations General appearance: alert, in no apparent distress Head exam: Present: atraumatic Eye exam: Present: normal appearance, PERRL ENT exam: Present: other (Poor dentition) Neck exam: Present: normal inspection Respiratory exam: Present: normal lung sounds bilaterally Cardiovascular Exam: Present: regular rate, normal rhythm GI/Abdominal exam: Present: soft. Absent: tenderness Neurological exam: Present: alert. Absent: motor sensory deficit Expanded Motor strength exam: RUE: 5, LUE: 5, RLE: 5, LLE: 5 Psychiatric exam: Present: normal affect, normal mood Skin exam: Present: normal color Course Vital Signs 05/18/21 12:57 Temperature 98 F Pulse Rate 80 Respiratory 18 Rate Blood Pressure 95/63 O2 Sat by Pulse 95 Oximetry Medical Decision Making - Medical Decision Making Patient reevaluated and alert and oriented 3. Patient's gait is baseline for him. Patient again requesting discharge. Disposition Clinical Impression: Alcohol abuse, Alcohol intoxication Disposition: HOME SELF-CARE Condition: Stable Instructions (If sedation given, give patient instructions): Alcohol Intoxication (ED) Additional Instructions: Discontinue alcohol use. Please follow-up with primary care physician in the next day or 2 for recheck. Return for worsening symptoms or other concerns. Is patient prescribed a controlled substance at d/c from ED?: No Referrals: Kermit Partida MD [Primary Care Provider] - 1-2 days Time of Disposition: 14:46
[2021-05-18] MEDS ORDERED: THIAMINE 100 MG TAB PO SCH (13:15)
[2021-05-18 14:45] VITALS: BP 103/72; PULSE 104; TEMP 97.8
== END 2021-05-18 14:44 | disposition home or self-care (01) ==
LOC: EC 12:51
DX: F10.129 Alcohol abuse with intoxication, unspecified (principal); I10 Essential (primary) hypertension; F31.9 Bipolar disorder, unspecified; F41.9 Anxiety disorder, unspecified; F25.9 Schizoaffective disorder, unspecified; F17.200 Nicotine dependence, unspecified, uncomplicated; Y90.9 Presence of alcohol in blood, level not specified
CPT/HCPCS: 82075; 99284

== ENCOUNTER 2021-05-18 22:58 | Emergency (ER) | payer OTHER ==
[2021-05-19 01:00] LABS: Appearance,Urine Clear (Clear); Bilirubin,Urine Negative (Negative); Blood,Urine Small (Negative); Color,Urine Light Yellow; Glucose,Urine (UA) Negative (Negative); Ketones,Urine Negative (Negative); Leukocyte Esterase,Urine Negative (Negative); Nitrite,Urine Negative (Negative); PH, Urine 5.5 (5.0-8.0); Protein,Urine Negative (Negative); RBC,Urine 1 /hpf (0-5); Specific Gravity,Urine 1.005 (1.001-1.035); Urobilinogen,Urine <2.0 mg/dL (<2.0); WBC,Urine 1 /hpf (0-5)
[2021-05-19 01:12] LABS: Amphetamine Screen,Urine Not Detected (NotDetected); Barbiturate Screen,Urine Not Detected (NotDetected); Benzodiazepines Screen,Urine Not Detected (NotDetected); Cocaine Screen,Urine Not Detected (NotDetected); Methadone Screen, Urine Not Detected (NotDetected); Opiate Screen,Urine Not Detected (NotDetected); Oxycodone Screen, Urine Not Detected (NotDetected); Phencyclidine Screen,Urine Not Detected (NotDetected); Tricyclic Antidepressant,Urine Detected (NotDetected); Urn Cannabinoid Scrn Detected (NotDetected)
--- NOTE | 2021-05-19 06:00 | ED ---
Psych HPI - General Chief Complaint: Psychiatric Symptoms Stated Complaint: Petition Time Seen by Provider: 05/19/21 00:33 Source: patient, police Mode of arrival: ambulatory - History of Present Illness MD Complaint: suicidal ideation, feels depressed -: month(s) Associated Psychiatric Symptoms: depression, suicidal ideation History of same: Yes Quality: intermittent Improves With: none Worsens With: none Context: recent alcohol abuse Associated Symptoms: denies other symptoms - Related Data Home Medications Medication Instructions Recorded Confirmed Omeprazole 20 mg PO DAILY@79901/09/21 05/15/21 Atorvastatin [Lipitor] 20 mg PO HS@209901/19/21 05/15/21 amLODIPine [Norvasc] 5 mg PO DAILY@79901/19/21 05/15/21 Cholecalciferol (Vitamin D3) 125 mcg PO DAILY@79901/26/21 05/15/21 [Vitamin D3 (5000 Iu)] FLUoxetine HCL [PROzac] 60 mg PO DAILY@79904/21/21 05/15/21 [place] Carbonate 600 mg PO HS@209904/21/21 05/15/21 Mirtazapine 30 mg PO HS@209904/21/21 05/15/21 Naltrexone HCl [Revia] 50 mg PO DAILY@79904/21/21 05/15/21 QUEtiapine [SEROquel] 400 mg PO HS@199904/21/21 05/15/21 Allergies Allergy/AdvReac Type Severity Reaction Status Date / Time No Known Allergies Allergy Verified 05/22/21 03:37 Review of Systems ROS Statement: Those systems with pertinent positive or pertinent negative responses have been documented in the HPI. ROS Other: All systems not noted in ROS Statement are negative. Constitutional: Denies: fever, chills Respiratory: Denies: cough, dyspnea Cardiovascular: Denies: chest pain, palpitations, edema Gastrointestinal: Denies: abdominal pain, nausea, vomiting Genitourinary: Denies: hematuria Musculoskeletal: Denies: back pain Skin: Denies: rash Past Medical History Past Medical History: Chest Pain / Angina, Hypertension Additional Past Medical History / Comment(s): ETOH History of Any Multi-Drug Resistant Organisms: None Reported Past Surgical History: Orthopedic Surgery Additional Past Surgical History / Comment(s): Right knee surgery and salma placed in left femur, 3 surgeries on his eyes. Past Anesthesia/Blood Transfusion Reactions: No Reported Reaction Past Psychological History: Anxiety, Bipolar, Depression, Schizoaffective Disorder Smoking Status: Current every day smoker Past Alcohol Use History: Abuse, Daily, Heavy Past Drug Use History: None Reported - Past Family History Mother Additional Family Medical History / Comment(s): Mother at age 36 from motor vehicle accident. His father is also past but does not know the cause or his age. Patient has 3 brothers that are apparently without major medical problems. General Exam Limitations: no limitations General appearance: alert, in no apparent distress Head exam: Present: atraumatic, normocephalic Eye exam: Present: normal appearance. Absent: scleral icterus, conjunctival injection Respiratory exam: Present: normal lung sounds bilaterally. Absent: respiratory distress, wheezes, rales, rhonchi, stridor Cardiovascular Exam: Present: regular rate, normal rhythm, normal heart sounds. Absent: systolic murmur, diastolic murmur, rubs, gallop GI/Abdominal exam: Present: soft. Absent: distended, tenderness, guarding, rebound, rigid, mass Neurological exam: Present: alert Psychiatric exam: Present: depressed, suicidal ideation. Absent: agitated, anxious, flat affect, manic, homicidal ideation Skin exam: Present: warm, dry, intact, normal color. Absent: rash Course Vital Signs 05/18/21 05/19/21 23:04 06:10 Temperature 98.0 F 98.7 F Pulse Rate 86 91 Respiratory 20 18 Rate Blood Pressure 147/81 128/82 O2 Sat by Pulse 96 98 Oximetry Medical Decision Making - Lab Data Lab Results 05/19/21 Range/Units 00:41 Urine Color Light Yellow Urine Appearance Clear (Clear) Urine pH 5.5 (5.0-8.0) Ur Specific [place] 1.005 (1.001-1.035) Urine Protein Negative (Negative) Urine Glucose (UA) Negative (Negative) Urine Ketones Negative (Negative) Urine Blood Small H (Negative) Urine Nitrite Negative (Negative) Urine Bilirubin Negative (Negative) Urine Urobilinogen <2.0 (<2.0) mg/dL Ur Leukocyte Esterase Negative (Negative) Urine RBC 1 (0-5) /hpf Urine WBC 1 (0-5) /hpf Urine Opiates Screen Not Detected (NotDetected) Ur Oxycodone Screen Not Detected (NotDetected) Urine Methadone Screen Not Detected (NotDetected) Ur Propoxyphene Screen Not Detected (NotDetected) Ur Barbiturates Screen Not Detected (NotDetected) U Tricyclic Antidepress Detected H (NotDetected) Ur Phencyclidine Scrn Not Detected (NotDetected) Ur Amphetamines Screen Not Detected (NotDetected) U Methamphetamines Scrn Not Detected (NotDetected) U Benzodiazepines Scrn Not Detected (NotDetected) Urine Cocaine Screen Not Detected (NotDetected) U Marijuana (THC) Screen Detected H (NotDetected) Disposition Clinical Impression: Mood disorder Disposition: HOME SELF-CARE Condition: Fair Instructions (If sedation given, give patient instructions): Mood Disorders (ED) Is patient prescribed a controlled substance at d/c from ED?: No Referrals: Kermit Partida MD [Primary Care Provider] - 1-2 days
[2021-05-19 06:22] VITALS: BP 128/82; PULSE 91; RESP 18; TEMP 98.7
== END 2021-05-19 06:10 | disposition home or self-care (01) ==
LOC: EC 22:58
DX: F39 Unspecified mood [affective] disorder (principal); I10 Essential (primary) hypertension; F17.200 Nicotine dependence, unspecified, uncomplicated; F31.9 Bipolar disorder, unspecified; F41.9 Anxiety disorder, unspecified; F25.9 Schizoaffective disorder, unspecified
CPT/HCPCS: 80306; 81001; 82075; 99285

== ENCOUNTER 2021-05-22 03:28 | Emergency (ER) | payer OTHER ==
[2021-05-22 03:36] VITALS: BP 134/87; PULSE 86; RESP 16; TEMP 98.3
--- NOTE | 2021-05-22 03:52 | ED ---
Psych HPI - General Chief Complaint: Psychiatric Symptoms Stated Complaint: Mental Health Time Seen by Provider: 05/22/21 03:34 Source: patient, EMS Mode of arrival: EMS - History of Present Illness MD Complaint: feels depressed -: year(s) Associated Psychiatric Symptoms: depression History of same: Yes Quality: constant Improves With: none Worsens With: none Context: recent alcohol abuse Associated Symptoms: denies other symptoms - Related Data Home Medications Medication Instructions Recorded Confirmed Omeprazole 20 mg PO DAILY@79901/09/21 05/15/21 Atorvastatin [Lipitor] 20 mg PO HS@209901/19/21 05/15/21 amLODIPine [Norvasc] 5 mg PO DAILY@79901/19/21 05/15/21 Cholecalciferol (Vitamin D3) 125 mcg PO DAILY@79901/26/21 05/15/21 [Vitamin D3 (5000 Iu)] FLUoxetine HCL [PROzac] 60 mg PO DAILY@79904/21/21 05/15/21 [place] Carbonate 600 mg PO HS@209904/21/21 05/15/21 Mirtazapine 30 mg PO HS@209904/21/21 05/15/21 Naltrexone HCl [Revia] 50 mg PO DAILY@79904/21/21 05/15/21 QUEtiapine [SEROquel] 400 mg PO HS@199904/21/21 05/15/21 Allergies Allergy/AdvReac Type Severity Reaction Status Date / Time No Known Allergies Allergy Verified 05/22/21 03:37 Review of Systems ROS Statement: Those systems with pertinent positive or pertinent negative responses have been documented in the HPI. ROS Other: All systems not noted in ROS Statement are negative. Constitutional: Denies: fever, chills Respiratory: Denies: cough, dyspnea Cardiovascular: Denies: chest pain, palpitations Gastrointestinal: Denies: abdominal pain, vomiting, diarrhea Musculoskeletal: Denies: back pain Neurological: Denies: headache, weakness Psychiatric: Reports: depression. Denies: auditory hallucinations, visual hallucinations, homicidal thoughts, suicidal thoughts Past Medical History Past Medical History: Chest Pain / Angina, Hypertension Additional Past Medical History / Comment(s): ETOH History of Any Multi-Drug Resistant Organisms: None Reported Past Surgical History: Orthopedic Surgery Additional Past Surgical History / Comment(s): Right knee surgery and salma placed in left femur, 3 surgeries on his eyes. Past Anesthesia/Blood Transfusion Reactions: No Reported Reaction Past Psychological History: Anxiety, Bipolar, Depression, Schizoaffective Disord er Smoking Status: Current every day smoker Past Alcohol Use History: Abuse, Daily, Heavy Past Drug Use History: None Reported - Past Family History Mother Additional Family Medical History / Comment(s): Mother at age 36 from motor vehicle accident. His father is also past but does not know the cause or his age. Patient has 3 brothers that are apparently without major medical problems. General Exam Limitations: no limitations General appearance: alert, in no apparent distress Head exam: Present: atraumatic, normocephalic Eye exam: Present: normal appearance. Absent: scleral icterus, conjunctival injection Neck exam: Present: normal inspection Respiratory exam: Present: normal lung sounds bilaterally. Absent: respiratory distress, wheezes, rales, rhonchi, stridor Cardiovascular Exam: Present: regular rate, normal rhythm, normal heart sounds. Absent: systolic murmur, diastolic murmur, rubs, gallop GI/Abdominal exam: Present: soft. Absent: distended, tenderness, guarding, rebound, rigid, mass Extremities exam: Present: normal inspection, normal capillary refill. Absent: pedal edema, calf tenderness Back exam: Present: normal inspection. Absent: CVA tenderness (R), CVA tendern ess (L) Neurological exam: Present: alert Psychiatric exam: Present: depressed. Absent: agitated, anxious, manic, homicidal ideation, suicidal ideation Skin exam: Present: warm, dry, intact, normal color. Absent: rash Course Vital Signs 05/22/21 03:32 Temperature 98.3 F Pulse Rate 86 Respiratory 16 Rate Blood Pressure 134/87 O2 Sat by Pulse 98 Oximetry Disposition Clinical Impression: Mood disorder Disposition: OTHER INSTITUTION NOT DEFINED Condition: Good Instructions (If sedation given, give patient instructions): Mood Disorders ( ED) Is patient prescribed a controlled substance at d/c from ED?: No Referrals: Kermit Partida MD [Primary Care Provider] - 1-2 days
== END 2021-05-22 03:54 | disposition other institution (70) ==
LOC: EC 03:28
DX: F39 Unspecified mood [affective] disorder (principal); I10 Essential (primary) hypertension; F31.9 Bipolar disorder, unspecified; F41.9 Anxiety disorder, unspecified; F25.9 Schizoaffective disorder, unspecified; F17.200 Nicotine dependence, unspecified, uncomplicated; Z79.899 Other long term (current) drug therapy
CPT/HCPCS: 82075; 99285

== ENCOUNTER → 2021-05-26 | Outpatient (CLI) | payer OTHER ==
--- NOTE | 2021-05-27 08:48 | NM ---
EXAMINATION TYPE: NM DatScan Brain SPECT DATE OF EXAM: 05/26/2021 COMPARISON: NONE HISTORY: Bradydyskinesia TECHNIQUE: 10 drops of Lugol's solution was administered 1 hour prior to injection as a thyroid bloc maude agent. After the administration of 4.38 mCi I-123 Ioflupane DaTscan. Images obtained 3 hours p ost injection. SPECT images of the brain were acquired with axial and coronal reconstructions. FINDINGS: The axial SPECT images demonstrate normal background activity. Accounting for head tilt, t here appears to be slight asymmetrically blunted comma-shaped appearance of the right corpus striatum . IMPRESSION: Slightly blunted striatal activity on the left may indicate early changes of idiopathic P arkinson's disease or Parkinsonian syndrome.
== END | disposition home or self-care (01) ==
LOC: RADNMMAIN 10:59
PROVIDERS: ATTEND Psychiatry & Neurology Neurology
DX: R93.0 Abnormal findings on diagnostic imaging of skull and head, not elsewhere classified (principal)
CPT/HCPCS: 78803; A9584

== ENCOUNTER 2021-05-29 00:05 | Emergency (ER) | payer OTHER ==
--- NOTE | 2021-05-29 00:08 | ED ---
Alcohol HPI - General Stated Complaint: ETOH Time Seen by Provider: 05/29/21 00:08 Source: RN notes reviewed, old records reviewed Limitations: no limitations - History of Present Illness Initial Comments: This is a 55-year-old male who presents today for evaluation regards to alcohol intoxication found sleeping above. Patient is well-known to our facility, patient presents by EMS in regards to alcohol intoxication significant pallor. Patient without complaint, not homicidal or suicidal MD Complaint: alcohol intoxication Last Drink: just [employer] -: minute(s) Previous Visits for Alcohol Intoxication?: Yes Recent Trauma: Yes Associated Symptoms: denies other symptoms Treatments Prior to Arrival: none Chronic Alcohol Use: Yes - Related Data Home Medications Medication Instructions Recorded Confirmed Omeprazole 20 mg PO DAILY@79901/09/21 05/15/21 Atorvastatin [Lipitor] 20 mg PO HS@209901/19/21 05/15/21 amLODIPine [Norvasc] 5 mg PO DAILY@79901/19/21 05/15/21 Cholecalciferol (Vitamin D3) 125 mcg PO DAILY@79901/26/21 05/15/21 [Vitamin D3 (5000 Iu)] FLUoxetine HCL [PROzac] 60 mg PO DAILY@79904/21/21 05/15/21 [place] Carbonate 600 mg PO HS@209904/21/21 05/15/21 Mirtazapine 30 mg PO HS@209904/21/21 05/15/21 Naltrexone HCl [Revia] 50 mg PO DAILY@79904/21/21 05/15/21 QUEtiapine [SEROquel] 400 mg PO HS@199904/21/21 05/15/21 Allergies Allergy/AdvReac Type Severity Reaction Status Date / Time No Known Allergies Allergy Verified 05/29/21 00:12 Review of Systems ROS Statement: Those systems with pertinent positive or pertinent negative responses have been documented in the HPI. ROS Other: All systems not noted in ROS Statement are negative. Past Medical History Past Medical History: Chest Pain / Angina, Hypertension Additional Past Medical History / Comment(s): ETOH History of Any Multi-Drug Resistant Organisms: None Reported Past Surgical History: Orthopedic Surgery Additional Past Surgical History / Comment(s): Right knee surgery and salma placed in left femur, 3 surgeries on his eyes. Past Anesthesia/Blood Transfusion Reactions: No Reported Reaction Past Psychological History: Anxiety, Bipolar, Depression, Schizoaffective Disorder Smoking Status: Current every day smoker Past Alcohol Use History: Abuse, Daily, Heavy Past Drug Use History: None Reported - Past Family History Mother Additional Family Medical History / Comment(s): Mother at age 36 from motor vehicle accident. His father is also past but does not know the cause or his age. Patient has 3 brothers that are apparently without major medical problems. General Exam General appearance: anxious Head exam: Present: atraumatic, normocephalic, normal inspection Eye exam: Present: normal appearance, PERRL, EOMI. Absent: scleral icterus, conjunctival injection, periorbital swelling ENT exam: Present: normal exam, mucous membranes moist Neck exam: Present: normal inspection. Absent: tenderness, meningismus, lymphadenopathy Respiratory exam: Present: normal lung sounds bilaterally. Absent: respiratory distress, wheezes, rales, rhonchi, stridor Cardiovascular Exam: Present: regular rate, normal rhythm, normal heart sounds. Absent: systolic murmur, diastolic murmur, rubs, gallop, clicks GI/Abdominal exam: Present: soft, normal bowel sounds. Absent: distended, tenderness, guarding, rebound, rigid Extremities exam: Present: normal inspection, full ROM, normal capillary refill. Absent: tenderness, pedal edema, joint swelling, calf tenderness Back exam: Present: normal inspection Neurological exam: Present: alert, oriented X3, CN II-XII intact Psychiatric exam: Present: normal affect, normal mood Skin exam: Present: warm, dry, intact, normal color. Absent: rash Course Vital Signs 05/29/21 00:07 Temperature 97.8 F Pulse Rate 57 L Respiratory 20 Rate Blood Pressure 145/81 O2 Sat by Pulse 98 Oximetry - Reevaluation(s) Reevaluation #1: 05/29/21 01:09 Medical record is reviewed Reevaluation #2: 05/29/21 01:09 Patient is not homicidal or suicidal Reevaluation #3: 05/29/21 01:09 Patient currently awake and alert asking for discharge Medical Decision Making - Medical Decision Making 55 male to the ER today for alcohol intoxication, patient was found sleeping in a public place. Brought to ER for evaluation, patient is awake and alert currently like to go cigarette, patient is discharged Disposition Clinical Impression: Alcohol intoxication Disposition: HOME SELF-CARE Condition: Fair Instructions (If sedation given, give patient instructions): Alcohol Intoxication (ED) Is patient prescribed a controlled substance at d/c from ED?: No Referrals: Kermit Partida MD [Primary Care Provider] - 1-2 days
[2021-05-29 00:12] VITALS: BP 145/81; PULSE 57; RESP 20; TEMP 97.8
== END 2021-05-29 01:31 | disposition home or self-care (01) ==
LOC: EC 00:05
DX: F10.129 Alcohol abuse with intoxication, unspecified (principal); I10 Essential (primary) hypertension; F41.9 Anxiety disorder, unspecified; F31.9 Bipolar disorder, unspecified; F20.9 Schizophrenia, unspecified; F17.200 Nicotine dependence, unspecified, uncomplicated; Y90.9 Presence of alcohol in blood, level not specified
CPT/HCPCS: 99284

== ENCOUNTER 2021-05-31 19:22 | Emergency (ER) | payer OTHER ==
[2021-05-31 19:46] VITALS: BP 140/83; PULSE 98; RESP 18; TEMP 98
--- NOTE | 2021-05-31 20:08 | ED ---
General Adult HPI - General Source: patient, RN notes reviewed, old records reviewed Mode of arrival: ambulatory Limitations: no limitations <Florencio Porter - Last Filed: 05/31/21 20:43> <Max Head - Last Filed: 05/31/21 21:48> - General Stated complaint: Fall, ETOH Time Seen by Provider: 05/31/21 19:23 - History of Present Illness Initial comments: 55-year-old male presents with alcohol intoxication, fall, head injury. The exact details surrounding the fall are unclear. Patient not certain if he lost consciousness. He was placed in a c-collar and transported by EMS to the emergency department. He does have history of daily alcohol use. He denies suicidal or homicidal ideation. Denies pain complaints. States he is up-to-date on his tetanus. (Florencio Porter) - Related Data Home Medications Medication Instructions Recorded Confirmed Omeprazole 20 mg PO DAILY@0800 01/09/21 05/31/21 Atorvastatin [Lipitor] 20 mg PO HS@209901/19/21 05/31/21 amLODIPine [Norvasc] 5 mg PO DAILY@0801/19/21 05/31/21 Cholecalciferol (Vitamin D3) 125 mcg PO DAILY@79901/26/21 05/31/21 [Vitamin D3 (5000 Iu)] FLUoxetine HCL [PROzac] 60 mg PO DAILY@79904/21/21 05/31/21 [place] Carbonate 600 mg PO HS@209904/21/21 05/31/21 Mirtazapine 30 mg PO HS@209904/21/21 05/31/21 Naltrexone HCl [Revia] 50 mg PO DAILY@0804/21/21 05/31/21 QUEtiapine [SEROquel] 400 mg PO HS@209904/21/21 05/31/21 Allergies Allergy/AdvReac Type Severity Reaction Status Date / Time No Known Allergies Allergy Verified 05/31/21 21:17 Review of Systems ROS Other: All systems not noted in ROS Statement are negative. <Florencio Porter - Last Filed: 05/31/21 20:43> ROS Other: All systems not noted in ROS Statement are negative. <Max Head - Last Filed: 05/31/21 21:48> ROS Statement: Those systems with pertinent positive or pertinent negative responses have been documented in the HPI. Past Medical History Past Medical History: Chest Pain / Angina, Hypertension Additional Past Medical History / Comment(s): ETOH History of Any Multi-Drug Resistant Organisms: None Reported Past Surgical History: Orthopedic Surgery Additional Past Surgical History / Comment(s): Right knee surgery and salma placed in left femur, 3 surgeries on his eyes. Past Anesthesia/Blood Transfusion Reactions: No Reported Reaction Past Psychological History: Anxiety, Bipolar, Depression, Schizoaffective Disorder Smoking Status: Current every day smoker Past Alcohol Use History: Abuse, Daily, Heavy Past Drug Use History: None Reported - Past Family History Mother Additional Family Medical History / Comment(s): Mother at age 36 from motor vehicle accident. His father is also past but does not know the cause or his age. Patient has 3 brothers that are apparently without major medical problems. <Florencio Porter - Last Filed: 05/31/21 20:43> General Exam Limitations: no limitations General appearance: alert, appears intoxicated Head exam: Present: normocephalic, other (Current hematoma and abrasion) Eye exam: Present: normal appearance, PERRL ENT exam: Present: normal exam Neck exam: Present: normal inspection. Absent: tenderness, meningismus Respiratory exam: Present: normal lung sounds bilaterally, respiratory distress Cardiovascular Exam: Present: regular rate, normal rhythm GI/Abdominal exam: Present: soft. Absent: distended, tenderness Extremities exam: Present: normal inspection, normal capillary refill. Absent: pedal edema Neurological exam: Present: alert, oriented X3 Psychiatric exam: Present: normal affect, normal mood. Absent: suicidal ideation Skin exam: Present: warm, dry, intact. Absent: cyanosis, diaphoretic <Florencio Porter - Last Filed: 05/31/21 20:43> Course <Florencio Porter - Last Filed: 05/31/21 20:43> Vital Signs 05/31/21 19:41 Temperature 98 F Pulse Rate 98 Respiratory 18 Rate Blood Pressure 140/83 O2 Sat by Pulse 98 Oximetry - Reevaluation(s) Reevaluation #1: 05/31/21 2100 Patient care signed out to Dr. Head at shift change awaiting CT imaging and reevaluation. (Florencio Porter) Disposition <Florencio Porter - Last Filed: 05/31/21 20:43> Is patient prescribed a controlled substance at d/c from ED?: No <Max Head - Last Filed: 05/31/21 21:48> Clinical Impression: Fall, Head injury Disposition: HOME SELF-CARE Condition: Good Instructions (If sedation given, give patient instructions): Fall Prevention for Older Adults (ED), Head Injury (ED) Referrals: Kermit Partida MD [Primary Care Provider] - 1-2 days
--- NOTE | 2021-05-31 20:46 | CT ---
EXAMINATION TYPE: CT brain nikolai powell con DATE OF EXAM: 05/31/2021 COMPARISON: 05/15/2021 HISTORY: fall CT DLP: 1347.6 mGycm Automated exposure control for dose reduction was used. Images of the brain and cervical spine without contrast. There is cerebral atrophy. There is enlargement of the ventricles. There is no mass effect nor midlin e shift. There is no sign of intracranial hemorrhage. There is significant thinning of the corpus rocky losum. There is previous fusion surgery from C4 to C7. There is moderate anterior spurring at C7-T1. The pos terior elements are intact. Facet joints are intact. There is no evidence of cervical spine fracture. Calvarium is intact. IMPRESSION: Cerebral atrophy and hydrocephalus. No acute intracranial abnormality. No change. Cervical the level fusion surgery. Spondylotic changes. No fracture seen. No change compared to recen t exam.
== END 2021-05-31 22:00 | disposition home or self-care (01) ==
LOC: EC 19:22
DX: S00.93XA Contusion of unspecified part of head, initial encounter (principal); I10 Essential (primary) hypertension; F31.9 Bipolar disorder, unspecified; F41.9 Anxiety disorder, unspecified; F25.9 Schizoaffective disorder, unspecified; F17.200 Nicotine dependence, unspecified, uncomplicated; Z79.899 Other long term (current) drug therapy; W19.XXXA Unspecified fall, initial encounter
CPT/HCPCS: 70450; 72125; 99284

== ENCOUNTER 2021-06-29 13:46 | Inpatient (IN) | payer MEDICAID, OTHER ==
[2021-06-29] MEDS ORDERED: SODIUM CHLORIDE 0.9% 1,000 ML with MVI, ADULT NO.4 WITH VIT K 10 ML, THIAMINE 100 MG, F... IV ONE ×4 (14:09)
[2021-06-29] MEDS ORDERED: SODIUM CHLORIDE 0.9% 500 ML 500 ML IV ONE (14:09)
[2021-06-29] MEDS ORDERED: SODIUM CHLORIDE 0.9% 1,000 ML IV ONE (14:09)
--- NOTE | 2021-06-29 14:11 | ED ---
General Adult HPI - General Chief complaint: Alcohol Stated complaint: Mental Health Time Seen by Provider: 06/29/21 13:55 Source: patient, RN notes reviewed, old records reviewed Mode of arrival: wheelchair Limitations: no limitations - History of Present Illness Initial comments: This is a 55-year-old male who presents emergency Department intoxicated and having made statements that he was suicidal. Patient states if he could kill himself he would. Patient states she's tried twice before when somebody from the car once jumping into the river. Patient states she's very depressed and just sick of life. Patient states he drinks daily he denies any drug use. Patient denies any physical complaints today. Patient denies any recent injuries or trauma. Patient denies headache patient denies numbness weakness. Patient denies any chest pain or back pain. Patient denies any difficulty breathing shortest breath per patient denies any recent fever chills or cough per patient denies any vomiting or diarrhea. Patient denies any abdominal pain. - Related Data Home Medications Medication Instructions Recorded Confirmed Omeprazole 20 mg PO DAILY@79901/09/21 06/29/21 Atorvastatin [Lipitor] 20 mg PO HS@209901/19/21 06/29/21 amLODIPine [Norvasc] 5 mg PO DAILY@79901/19/21 06/29/21 Cholecalciferol (Vitamin D3) 125 mcg PO DAILY@79901/26/21 06/29/21 [Vitamin D3 (5000 Iu)] [place] Carbonate 600 mg PO HS@209904/21/21 06/29/21 Mirtazapine 30 mg PO HS@209904/21/21 06/29/21 Naltrexone HCl [Revia] 50 mg PO DAILY@79904/21/21 06/29/21 QUEtiapine [SEROquel] 400 mg PO HS@199904/21/21 06/29/21 FLUoxetine HCL 80 mg PO DAILY@79906/29/21 06/29/21 Allergies Allergy/AdvReac Type Severity Reaction Status Date / Time No Known Allergies Allergy Verified 06/29/21 17:03 Review of Systems ROS Statement: Those systems with pertinent positive or pertinent negative responses have been documented in the HPI. ROS Other: All systems not noted in ROS Statement are negative. Past Medical History Past Medical History: Chest Pain / Angina, Hypertension Additional Past Medical History / Comment(s): ETOH History of Any Multi-Drug Resistant Organisms: None Reported Past Surgical History: Orthopedic Surgery Additional Past Surgical History / Comment(s): Right knee surgery and salma placed in left femur, 3 surgeries on his eyes. Past Anesthesia/Blood Transfusion Reactions: No Reported Reaction Past Psychological History: Anxiety, Bipolar, Depression, Schizoaffective Disorder Smoking Status: Current every day smoker Past Alcohol Use History: Abuse, Daily, Heavy Past Drug Use History: None Reported - Past Family History Mother Additional Family Medical History / Comment(s): Mother at age 36 from motor vehicle accident. His father is also past but does not know the cause or his age. Patient has 3 brothers that are apparently without major medical problems. General Exam - General Exam Comments Initial Comments: GENERAL: Patient is well-developed and well-nourished. Patient is nontoxic and well- hydrated and is in no acute distress. Patient appears intoxicated ENT: Neck is soft and supple. No significant lymphadenopathy is noted. Oropharynx is clear. Moist mucous membranes. Neck has full range of motion without eliciting any pain. EYES: The sclera were anicteric and conjunctiva were pink and moist. Extraocular movements were intact and pupils were equal round and reactive to light. Eyelids were unremarkable. PULMONARY: Unlabored respirations. Good breath sounds bilaterally. No audible rales rhonchi or wheezing was noted. CARDIOVASCULAR: There is a regular rate and rhythm without any murmurs gallops or rubs. ABDOMEN: Soft and nontender with normal bowel sounds. SKIN: Skin is clear with no lesions or rashes and otherwise unremarkable. NEUROLOGIC: Patient is alert and oriented x3. Cranial nerves II through XII are grossly intact. Motor and sensory are also intact. Normal speech, volume and content. Symmetrical smile. MUSCULOSKELETAL: Normal extremities with adequate strength and full range of motion. LYMPHATICS: No significant lymphadenopathy is noted PSYCHIATRIC: Normal psychiatric evaluation. Limitations: no limitations Course Vital Signs 06/29/21 06/29/21 13:47 19:40 Temperature 98.5 F 98.7 F Pulse Rate 99 103 H Respiratory 20 20 Rate Blood Pressure 134/83 129/69 O2 Sat by Pulse 96 95 Oximetry Medical Decision Making - Medical Decision Making Chest x-ray showed no acute normalities. Patient awake of 20,000 I will back into reevaluate the patient he denied any symptoms of cough fever abdominal pain nausea vomiting or any rashes lesions or areas of erythema. EPS evaluated the patient and they determined the patient needed to be admitted I admitted the patient. - Lab Data Result diagrams: 06/29/21 14:13 06/29/21 14:13 Lab Results 06/29/21 06/29/21 06/29/21 Range/Units 14:13 14:13 14:28 WBC 20.2 H (3.8-10.6) k/uL RBC 3.44 L (4.30-5.90) m/uL Hgb 10.4 L (13.0-17.5) gm/dL Hct 31.6 L (39.0-53.0) % MCV 91.9 (80.0-100.0) fL MCH 30.1 (25.0-35.0) pg MCHC 32.8 (31.0-37.0) g/dL RDW 14.0 (11.5-15.5) % Plt Count 321 (150-450) k/uL MPV 8.0 Neutrophils % 86 % Lymphocytes % 7 % Monocytes % 5 % Eosinophils % 0 % Basophils % 0 % Neutrophils # 17.4 H (1.3-7.7) k/uL Lymphocytes # 1.5 (1.0-4.8) k/uL Monocytes # 1.0 (0-1.0) k/uL Eosinophils # 0.1 (0-0.7) k/uL Basophils # 0.0 (0-0.2) k/uL Sodium 130 L (137-145) mmol/L Potassium 4.2 (3.5-5.1) mmol/L Chloride 98 (98-107) mmol/L Carbon Dioxide 21 L (22-30) mmol/L Anion Gap 11 mmol/L BUN 10 (9-20) mg/dL Creatinine 0.94 (0.66-1.25) mg/dL Est GFR (CKD-EPI)AfAm >90 (>60 ml/min/1.73 sqM) Est GFR (CKD-EPI)NonAf >90 (>60 ml/min/1.73 sqM) Glucose 77 (74-99) mg/dL Calcium 9.2 (8.4-10.2) mg/dL Magnesium 2.3 (1.6-2.3) mg/dL Total Bilirubin 0.7 (0.2-1.3) mg/dL AST 22 (17-59) U/L ALT 10 (4-49) U/L Alkaline Phosphatase 97 (38-126) U/L Total Protein 5.8 L (6.3-8.2) g/dL Albumin 3.4 L (3.5-5.0) g/dL Urine Opiates Screen Not Detected (NotDetected) Ur Oxycodone Screen Not Detected (NotDetected) Urine Methadone Screen Not Detected (NotDetected) Ur Propoxyphene Screen Not Detected (NotDetected) Ur Barbiturates Screen Not Detected (NotDetected) U Tricyclic Antidepress Detected H (NotDetected) Ur Phencyclidine Scrn Not Detected (NotDetected) Ur Amphetamines Screen Not Detected (NotDetected) U Methamphetamines Scrn Not Detected (NotDetected) U Benzodiazepines Scrn Not Detected (NotDetected) Urine Cocaine Screen Not Detected (NotDetected) U Marijuana (THC) Screen Not Detected (NotDetected) Serum Alcohol 165 mg/dL Disposition Clinical Impression: Alcohol intoxication, Suicidal ideation, Depression Disposition: ADMITTED IP TO THIS HOSP Referrals: Kermit Partida MD [Primary Care Provider] - 1-2 days Time of Disposition: 21:08
[2021-06-29 14:37] LABS: Basophils % (A) 0 %; Eosinophils # (A) 0.1 k/uL (0-0.7); Eosinophils % (A) 0 %; HCT 31.6 % (39.0-53.0); HGB 10.4 gm/dL (13.0-17.5); Lymphocytes # (A) 1.5 k/uL (1.0-4.8); Lymphocytes % (A) 7 %; MCH 30.1 pg (25.0-35.0); MCHC 32.8 g/dL (31.0-37.0); MCV 91.9 fL (80.0-100.0); Monocytes % (A) 5 %; Neutrophils # (A) 17.4 k/uL (1.3-7.7); Neutrophils % (A) 86 %; Platelet Count 321 k/uL (150-450); RBC 3.44 m/uL (4.30-5.90); WBC 20.2 k/uL (3.8-10.6)
[2021-06-29] MEDS ORDERED: NICOTINE 21MG/24HR PATCH TRANSDERM STA (14:47)
[2021-06-29 14:48] LABS: ALT 10 U/L (4-49); AST 22 U/L (17-59); African American GFR (CKD) >90 (>60 ml/min/1.73 sqM); Albumin 3.4 g/dL (3.5-5.0); Alkaline Phosphatase 97 U/L (38-126); Anion Gap 11 mmol/L; Blood Urea Nitrogen 10 mg/dL (9-20); Calcium 9.2 mg/dL (8.4-10.2); Carbon Dioxide 21 mmol/L (22-30); Chloride 98 mmol/L (98-107); Glucose 77 mg/dL (74-99); Magnesium 2.3 mg/dL (1.6-2.3); Non-African American GFR(CKD) >90 (>60 ml/min/1.73 sqM); Potassium 4.2 mmol/L (3.5-5.1); Sodium 130 mmol/L (137-145); Total Bilirubin 0.7 mg/dL (0.2-1.3); Total Protein 5.8 g/dL (6.3-8.2)
[2021-06-29 14:50] LABS: Alcohol 165 mg/dL
[2021-06-29 15:29] LABS: Amphetamine Screen,Urine Not Detected (NotDetected); Barbiturate Screen,Urine Not Detected (NotDetected); Benzodiazepines Screen,Urine Not Detected (NotDetected); Cocaine Screen,Urine Not Detected (NotDetected); Methadone Screen, Urine Not Detected (NotDetected); Opiate Screen,Urine Not Detected (NotDetected); Oxycodone Screen, Urine Not Detected (NotDetected); Phencyclidine Screen,Urine Not Detected (NotDetected); Tricyclic Antidepressant,Urine Detected (NotDetected); Urn Cannabinoid Scrn Not Detected (NotDetected)
--- NOTE | 2021-06-29 16:40 | XR ---
EXAMINATION TYPE: XR chest 2V DATE OF EXAM: 06/29/2021 COMPARISON: 05/15/2021 HISTORY: COPD TECHNIQUE: 2 views FINDINGS: Heart and mediastinum are normal. Lungs are clear. Diaphragm is normal. Bony thorax is inta ct. Pulmonary vascularity is normal. IMPRESSION: Normal chest. No change.
[2021-06-29] MEDS ORDERED: LORazepam 1 MG TAB PO PRN (23:56)
[2021-06-29] MEDS ORDERED: MAG HYDROX/AL HYDROX/SIMETH 30 ML CUP PO PRN (23:56)
[2021-06-29] MEDS ORDERED: MAGNESIUM HYDROXIDE 2,400 MG/10 ML CUP PO PRN (23:56)
[2021-06-30] MEDS ORDERED: HALOPERIDOL LACTATE 5 MG/ML 1 ML VIAL IM PRN (00:01)
[2021-06-30] MEDS ORDERED: LORazepam 2 MG/ML INJ IM PRN (00:03)
[2021-06-30] MEDS: ATORVASTATIN 20 MG TAB PO SCH ×2 (04:11→20:15)
[2021-06-30] MEDS: NICOTINE 14MG/24HR PATCH TRANSDERM SCH ×2 (04:11→07:53)
[2021-06-30] MEDS: LITHIUM CARBONATE 300 MG CAP PO SCH ×2 (04:11→20:15)
[2021-06-30] MEDS: QUEtiapine 400 MG TAB PO SCH ×2 (04:11→20:15)
[2021-06-30] MEDS: FLUoxetine HCL 20 MG CAP PO SCH (07:54)
[2021-06-30] MEDS: amLODIPine 5 MG TAB PO SCH (07:54)
[2021-06-30] MEDS: PANTOPRAZOLE 40 MG TABLET PO SCH (07:55)
[2021-06-30] MEDS: CHOLECALCIFEROL 25 MCG (1000 IU) TABLET PO SCH (07:55)
[2021-06-30] MEDS ORDERED: NALTREXONE HCL 50 MG TAB PO SCH (08:00)
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
[2021-06-30] MEDS: MIRTAZAPINE 15 MG TAB PO SCH (20:15)
--- NOTE | 2021-07-01 05:49 | CONS ---
CONSULTATION CHIEF COMPLAINT: Major depression with suicidal thoughts and alcohol intoxication. HISTORY OF PRESENT ILLNESS: This is another admission for this 55-year-old white male, chronic alcoholic with depression. He was just in the hospital a month or so. He was brought in the emergency room extremely intoxicated, stating that he wanted to kill himself. He was admitted. REVIEW OF SYSTEMS: He denies any headaches, change in his vision or the hearing, chest pain, shortness of breath, abdominal pain, vomiting, etc. Past medical history, family history, personal and social histories are all otherwise unremarkable. He is not taking any medications. It is not known how much alcohol he drinks. PHYSICAL EXAMINATION: Blood pressure is 115/85 with a pulse of 94, respirations of 35, and he is afebrile. In general he appeared to be slender and still somewhat lethargic and intoxicated. Head, ears, eyes, nose, mouth and throat demonstrate his usual strabismus and poor dentition. Neck was supple. Chest is clear to auscultation. Cardiac exam demonstrated sinus tachycardia. Abdomen is soft and flat. There are no masses or visceromegaly. Extremities are normal. Neurologically he is intact. IMPRESSION: 1. Major depression with suicidal intent. 2. Acute alcohol intoxication. 3. Chronic alcoholism. 4. Strabismus. RECOMMENDATIONS: None at this time. MMODL / IJN: [id number] /
[2021-07-01] MEDS: NICOTINE 14MG/24HR PATCH TRANSDERM SCH (08:31)
[2021-07-01] MEDS: CHOLECALCIFEROL 25 MCG (1000 IU) TABLET PO SCH (08:32)
[2021-07-01] MEDS: NALTREXONE HCL 50 MG TAB PO SCH (08:32)
[2021-07-01] MEDS: FLUoxetine HCL 20 MG CAP PO SCH (08:32)
[2021-07-01] MEDS: PANTOPRAZOLE 40 MG TABLET PO SCH (08:32)
[2021-07-01] MEDS: ACETAMINOPHEN TAB 325 MG TAB PO PRN (08:34)
[2021-07-01] MEDS: amLODIPine 5 MG TAB PO SCH (09:46)
[2021-07-01] MEDS: MIRTAZAPINE 15 MG TAB PO SCH (20:29)
[2021-07-01] MEDS: LITHIUM CARBONATE 300 MG CAP PO SCH (20:29)
[2021-07-01] MEDS: ATORVASTATIN 20 MG TAB PO SCH (20:29)
[2021-07-01] MEDS: QUEtiapine 400 MG TAB PO SCH (20:29)
[2021-07-02] MEDS: ACETAMINOPHEN TAB 325 MG TAB PO PRN (06:47)
--- NOTE | 2021-07-02 07:24 | P.PN ---
Progress Note - Text Progress Note Date: 07/01/21 Subjective: Patient was seen today as a cross coverage for . The patient was evaluated, chart reviewed, case discussed with the treatment team. Patient reports better sleep last night, and appetite was reported as " fine ". Patient has been going to groups and other unit activities. The patient is compliant with his medications and denies any adverse reactions. Patient reports feeling relatively better today with less depressed mood, denies feeling hopeless and he denies any suicidal ideation. Patient denies any hallucinations, paranoid ideation, and no delusions elicited. He denies any mood swings, anger, agitation, or irritability. No reports of alcohol withdrawal symptoms, and patient denies severe anxiety or panic attacks. Objective: Vitals has been reviewed. Mental status examination; Appearance: The patient appears stated age, appropriately groomed, below average body built, no specific features. Gait/posture: Normal gait, Normal arm swinging: No abnormal movements. Attitude and behavior: Patient was engaged cooperative, intermittent eye contact. Motor activity: Decreased psychomotor activity Speech: Slow, soft low volume, delayed Mood: Denies depression Affect: Flat Thought form: Poverty of thoughts but goal-directed, linear, and coherent. Thought content: Non-delusional, denies suicidal thoughts, denies homicidal thoughts, denies intentions or plans. Perception: Denies any auditory or visual hallucinations Attention: No impairment. Patient was able to repeat serial 5. Orientation: Patient is oriented to time place person and situation. Insight: Patient has fair insight about his psychiatric disorder. Judgment: Patient has fair judgment about his psychiatric treatment. Assessment: Major depressive disorder, recurrent, severe Alcohol use disorder, severe Plan: Continue inpatient level of care due to need for further monitoring and stabilization, and is still needs criteria for inpatient level of care Precautions: Continue 15 minutes check for safety. Consider medical consultation if any acute medical issues arise. Provide the patient individual, group therapy, substance use disorder counseling to give better insight and learn coping skills. Medications: Continue lithium for mood stabilization 600 mg at bedtime, Remeron for depression 30 mg at bedtime, Seroquel 400 mg at bedtime for mood stabilization, and naltrexone 50 mg daily for alcohol craving. Continue nicotine replacement therapy Continue monitoring alcohol withdrawal symptoms. Continue as needed medications for psychiatric emergencies including psychosis, agitation and anxiety including Ativan and Haldol. Continue non-psychiatric medications for medical conditions as recommended by the medical team. Discharge patient to OUTPATIENT services upon a stabilization
[2021-07-02] MEDS: NALTREXONE HCL 50 MG TAB PO SCH (08:06)
[2021-07-02] MEDS: PANTOPRAZOLE 40 MG TABLET PO SCH (08:06)
[2021-07-02] MEDS: amLODIPine 5 MG TAB PO SCH (08:06)
[2021-07-02] MEDS: FLUoxetine HCL 20 MG CAP PO SCH (08:06)
[2021-07-02] MEDS: NICOTINE 14MG/24HR PATCH TRANSDERM SCH (08:06)
[2021-07-02] MEDS: CHOLECALCIFEROL 25 MCG (1000 IU) TABLET PO SCH (08:07)
[2021-07-02] MEDS: MIRTAZAPINE 15 MG TAB PO SCH (20:49)
[2021-07-02] MEDS: LITHIUM CARBONATE 300 MG CAP PO SCH (20:49)
[2021-07-02] MEDS: ATORVASTATIN 20 MG TAB PO SCH (20:50)
[2021-07-02] MEDS: QUEtiapine 400 MG TAB PO SCH (20:50)
--- NOTE | 2021-07-03 00:25 | P.PN ---
Progress Note - Text Progress Note Date: 07/02/21 Subjective: Patient was seen today as a cross coverage for . The patient was evaluated, chart reviewed, case discussed with the treatment team. Patient continues to report feeling stable emotionally and today he denies any symptoms of depression, anxiety or mood swings. He denies any hallucinations, paranoid ideation, delusions or manic symptoms. No reports of agitation, irritable mood or behavioral problems. Patient attends groups and other unit activities and continues to take his medications and denies any side effects. Reports fair sleep and appetite. Vitals has been reviewed. Mental status examination; Appearance: The patient appears stated age, appropriately groomed, below average body built, no specific features. Gait/posture: Normal gait, Normal arm swinging: No abnormal movements. Attitude and behavior: Patient was engaged cooperative, intermittent eye contact. Motor activity: Decreased psychomotor activity Speech: Slow, soft low volume, delayed Mood: Denies depression Affect: Restricted Thought form: Poverty of thoughts but goal-directed, linear, and coherent. Thought content: Non-delusional, denies suicidal thoughts, denies homicidal thoughts, denies intentions or plans. Perception: Denies any auditory or visual hallucinations Attention: No impairment. Patient was able to repeat serial 5. Orientation: Patient is oriented to time place person and situation. Insight: Patient has fair insight about his psychiatric disorder. Judgment: Patient has fair judgment about his psychiatric treatment. Assessment: Major depressive disorder, recurrent, severe Alcohol use disorder, severe Plan: Continue inpatient level of care due to need for further monitoring and stabilization, and is still needs criteria for inpatient level of care Precautions: Continue 15 minutes check for safety. Consider medical consultation if any acute medical issues arise. Provide the patient individual, group therapy, substance use disorder counseling to give better insight and learn coping skills. Medications: Continue lithium for mood stabilization 600 mg at bedtime, Remeron for depression 30 mg at bedtime, Seroquel 400 mg at bedtime for mood stabilization, and naltrexone 50 mg daily for alcohol craving. Continue nicotine replacement therapy Continue monitoring alcohol withdrawal symptoms. Continue as needed medications for psychiatric emergencies including psychosis, agitation and anxiety including Ativan and Haldol. Continue non-psychiatric medications for medical conditions as recommended by the medical team. Discharge patient to OUTPATIENT services upon a stabilization
[2021-07-03 07:12] VITALS: TEMP 98.5
[2021-07-03] MEDS: NICOTINE 14MG/24HR PATCH TRANSDERM SCH (08:18)
[2021-07-03] MEDS: PANTOPRAZOLE 40 MG TABLET PO SCH (08:18)
[2021-07-03] MEDS: NALTREXONE HCL 50 MG TAB PO SCH (08:18)
[2021-07-03] MEDS: FLUoxetine HCL 20 MG CAP PO SCH (08:18)
[2021-07-03] MEDS: ACETAMINOPHEN TAB 325 MG TAB PO PRN (08:19)
[2021-07-03] MEDS: CHOLECALCIFEROL 25 MCG (1000 IU) TABLET PO SCH (08:19)
[2021-07-03] MEDS: amLODIPine 5 MG TAB PO SCH (09:04)
[2021-07-03] MEDS: ATORVASTATIN 20 MG TAB PO SCH (20:03)
[2021-07-03] MEDS: MIRTAZAPINE 15 MG TAB PO SCH (20:03)
[2021-07-03] MEDS: LITHIUM CARBONATE 300 MG CAP PO SCH (20:03)
[2021-07-03] MEDS: QUEtiapine 400 MG TAB PO SCH (20:03)
--- NOTE | 2021-07-03 23:47 | P.PN ---
Progress Note - Text Progress Note Date: 07/03/21 Subjective: Patient was seen today as a cross coverage for Dr. Santoyo. The patient was evaluated, chart reviewed, case discussed with the treatment team. Patient reports fair sleep and appetite. He continues to take his psych medications and denies any side effects. Patient continues to go to groups and other unit activities. Patient denies any depression, anxiety, or mood instability symptoms. He denies any suicidal or homicidal ideation. No reports of hallucinations, paranoid ideation, delusions, or manic symptoms. Vitals has been reviewed. Mental status examination; Appearance: The patient appears stated age, appropriately groomed, below average body built, no specific features. Gait/posture: Normal gait, Normal arm swinging: No abnormal movements. Attitude and behavior: Patient was engaged cooperative, intermittent eye contact. Motor activity: Decreased psychomotor activity Speech: Slow, soft low volume, delayed Mood: Denies depression Affect: Restricted Thought form: Poverty of thoughts but goal-directed, linear, and coherent. Thought content: Non-delusional, denies suicidal thoughts, denies homicidal thoughts, denies intentions or plans. Perception: Denies any auditory or visual hallucinations Attention: No impairment. Patient was able to repeat serial 5. Orientation: Patient is oriented to time place person and situation. Insight: Patient has fair insight about his psychiatric disorder. Judgment: Patient has fair judgment about his psychiatric treatment. Assessment: Major depressive disorder, recurrent, severe Alcohol use disorder, severe Plan: Continue inpatient level of care due to need for further monitoring and stabilization, and is still needs criteria for inpatient level of care Precautions: Continue 15 minutes check for safety. Consider medical consultation if any acute medical issues arise. Provide the patient individual, group therapy, substance use disorder counseling to give better insight and learn coping skills. Medications: Continue lithium for mood stabilization 600 mg at bedtime, Remeron for depression 30 mg at bedtime, Seroquel 400 mg at bedtime for mood stabilization, and naltrexone 50 mg daily for alcohol craving. Continue nicotine replacement therapy Continue monitoring alcohol withdrawal symptoms. Continue as needed medications for psychiatric emergencies including psychosis, agitation and anxiety including Ativan and Haldol. Continue non-psychiatric medications for medical conditions as recommended by the medical team. Discharge patient to OUTPATIENT services upon a stabilization
[2021-07-04 02:12] VITALS: RESP 20
[2021-07-04 02:35] VITALS: BP 117/65; PULSE 56
[2021-07-04] MEDS ORDERED: SODIUM CHLORIDE 0.9% 1,000 ML IV ONE (03:11)
[2021-07-04] MEDS ORDERED: SODIUM CHLORIDE 0.9% 1,000 ML IV SCH (03:15)
== END 2021-07-04 03:59 | disposition short-term general hospital (02) | DRG 885 ==
LOC: EC 13:46 → 3MHU 23:13
PROVIDERS: ADMIT Psychiatry & Neurology Psychiatry; ATTEND Psychiatry & Neurology Psychiatry
DX: F33.2 Major depressive disorder, recurrent severe without psychotic features (principal); R45.851 Suicidal ideations; F10.229 Alcohol dependence with intoxication, unspecified; F31.9 Bipolar disorder, unspecified; F25.9 Schizoaffective disorder, unspecified; F17.200 Nicotine dependence, unspecified, uncomplicated; F41.9 Anxiety disorder, unspecified; H50.9 Unspecified strabismus; I10 Essential (primary) hypertension; Z56.0 Unemployment, unspecified; Z78.9 Other specified health status; Z20.822 Contact with and (suspected) exposure to COVID-19
CPT/HCPCS: 36415; 71046; 80053; 80306; 80320; 82075; 83735; 85025; 87635; 96361; 96365; 96366; 99285

== ENCOUNTER 2021-07-04 03:27 | Observation (INO) | payer OTHER ==
[2021-07-04 05:08] VITALS: PULSE 80; RESP 17
[2021-07-04 07:43] LABS: Basophils % (A) 0 %; Eosinophils # (A) 0.7 k/uL (0-0.7); Eosinophils % (A) 5 %; HCT 29.3 % (39.0-53.0); HGB 9.3 gm/dL (13.0-17.5); Lymphocytes # (A) 1.7 k/uL (1.0-4.8); Lymphocytes % (A) 14 %; MCH 29.3 pg (25.0-35.0); MCHC 31.6 g/dL (31.0-37.0); MCV 92.7 fL (80.0-100.0); Mean Platelet Volume 7.3; Monocytes # (A) 0.7 k/uL (0-1.0); Monocytes % (A) 6 %; Neutrophils # (A) 8.8 k/uL (1.3-7.7); Neutrophils % (A) 73 %; Platelet Count 460 k/uL (150-450); RBC 3.17 m/uL (4.30-5.90); RDW 14.3 % (11.5-15.5); WBC 12.1 k/uL (3.8-10.6)
[2021-07-04 07:59] LABS: African American GFR (CKD) >90 (>60 ml/min/1.73 sqM); Anion Gap 5 mmol/L; Blood Urea Nitrogen 13 mg/dL (9-20); Calcium 8.4 mg/dL (8.4-10.2); Carbon Dioxide 25 mmol/L (22-30); Chloride 106 mmol/L (98-107); Glucose 96 mg/dL (74-99); Non-African American GFR(CKD) >90 (>60 ml/min/1.73 sqM); Potassium 4.3 mmol/L (3.5-5.1); Sodium 136 mmol/L (137-145)
[2021-07-04 08:01] VITALS: BP 124/76; TEMP 98.3
[2021-07-04 09:48] LABS: Basophils # (A) 0.1 k/uL (0-0.2); Basophils % (A) 1 %; Eosinophils # (A) 0.6 k/uL (0-0.7); Eosinophils % (A) 6 %; HCT 30.9 % (39.0-53.0); HGB 9.6 gm/dL (13.0-17.5); Hypochromasia Slight; Lymphocytes # (A) 1.4 k/uL (1.0-4.8); Lymphocytes % (A) 12 %; MCH 29.5 pg (25.0-35.0); MCHC 31.1 g/dL (31.0-37.0); Mean Platelet Volume 7.4; Monocytes # (A) 0.7 k/uL (0-1.0); Monocytes % (A) 6 %; Neutrophils # (A) 8.7 k/uL (1.3-7.7); Neutrophils % (A) 75 %; Platelet Count 445 k/uL (150-450); RBC 3.25 m/uL (4.30-5.90); RDW 14.2 % (11.5-15.5); WBC 11.6 k/uL (3.8-10.6)
[2021-07-04 09:52] LABS: ALT 7 U/L (4-49); AST 20 U/L (17-59); African American GFR (CKD) >90 (>60 ml/min/1.73 sqM); Albumin 2.8 g/dL (3.5-5.0); Albumin/Globulin Ratio 1.2; Alkaline Phosphatase 73 U/L (38-126); Anion Gap 5 mmol/L; Blood Urea Nitrogen 12 mg/dL (9-20); Calcium 8.6 mg/dL (8.4-10.2); Carbon Dioxide 25 mmol/L (22-30); Chloride 107 mmol/L (98-107); Globulin 2.4 g/dL; Glucose 103 mg/dL (74-99); Magnesium 2.1 mg/dL (1.6-2.3); Non-African American GFR(CKD) >90 (>60 ml/min/1.73 sqM); Potassium 4.6 mmol/L (3.5-5.1); Sodium 137 mmol/L (137-145); Total Bilirubin 0.4 mg/dL (0.2-1.3); Total Protein 5.2 g/dL (6.3-8.2)
--- NOTE | 2021-07-04 12:54 | P.DS ---
Providers Date of admission: 07/04/21 04:01 Expected date of discharge: 07/04/21 Attending physician: Kermit Partida Consults: 07/04/21 10:41 Consult Physician Routine Consulting Provider: Psychiatry - [facility] Psychiatry Consult Reason/Comments: [facility] Do you want consulting provider notified?: Yes Primary care physician: Kermit Partida - Discharge Diagnosis(es) (1) Bipolar I disorder, most recent episode depressed Current Visit: Yes Status: Chronic Priority: High (2) Alcohol dependence Current Visit: Yes Status: Chronic Priority: Medium (3) Nicotine dependence Current Visit: Yes Status: Chronic Priority: Medium Hospital Course: Admission HPI: Patient is a single, on Social Security disability, 55-year-old male with significant history of depression and alcohol abuse was admitted for suicidal ideation Patient presented to the hospital on 06/29/21, who presented to the emergency department by police for intoxication and suicidal ideation. Patient endorsed suicidal thoughts stating that "I don't care anymore, life is not worth living and living a three-quarter house and want to live there." The patient expresses that he is always suicidal to the EPS nurse. The patient has had previous attempts at suicide by jumping [place] the river in front of traffic but was unsuccessful. He reported to the EPS nurse that he needs to come up with a better plan to be successful. Upon evaluation on the unit, the patient continues to endorse significant depression and suicidal ideation. The patient reports that he has not been feeling well and has been feeling particularly worse over the past few months. He sees that his depression has worsened. He reports that he has no motivation for life, has had anhedonia, has not been taking care of his hygiene, has had decreased appetite, and has been constantly thinking about ending his life. Despite this, the patient is not endorsing any plan or intention at this time. He is not reporting any homicidal ideation, intention, and/or plan. The patient is currently not reporting any auditory or visual hallucinations. He is denying any paranoia or delusions. The patient reports that he has been following with [facility] and been taking his medications as directed. The patient identifies that the biggest stressor for him is his housing situation. He reports that he wants to live in his own place where he can drink in isolation and peace. In regards to his alcohol abuse, the patient reports that he was drinking daily. He reports drinking up to a fifth of liquor or multiple beers per day. He is denying any other substance abuse at this time. The patient does not feel like he is ready to quit alcohol. He states he does not want to go to rehabilitation or AA. He states "my life is not that bad yet that I need AA." Patient has previous diagnoses of major depressive disorder, and alcohol use disorder. The patient has had multiple trials of medications including Neurontin, Ativan, Effexor, Cogentin, Lexapro, Haldol, Topamax, Zoloft. He is currently on a regimen of lithium, Prozac, Remeron, and ReVia. The patient has had multiple inpatient psychiatric admissions with the last one being in February 2021. The patient has had 10 previous inpatient psychiatric admissions since 2014. The patient is currently open with Dr. Bernard at [facility]. The patient does report previous attempts at suicide. Hospital course: Upon admission to the unit patient was initially endorsing significant depression and suicidal ideation in the context of heavy alcohol abuse. The patient was restarted on his home medications of lithium, Seroquel, Remeron, and ReVia. Initial plan was to increase ReVia to 100 mg 2 to his severe alcohol use disorder. Upon evaluation on the unit, the patient revealed that he was not contemplating quitting alcohol at the time. He was in the pre-contemplative stage. He did not feel like his alcohol was "severe enough" to warrant treatment. The patient was then seen by the covering provider who noted that the patient was suspecting significant improvement in regards to his mood. In the director of early childhood of 07/04/2021, the patient was found staggering down the [place], confused, and unable stand by himself. He reported feeling dizzy and wea k. Upon review the patient's chart, the patient's blood pressure medication was held during the last morning. The patient was transferred to telemetry unit on the medical floor for management of his hypotension and altered mental status. Mental status exam: Mental status examination could not be performed as the patient was transferred in the director of early childhood. Impression: Patient depressive disorder, recurrent, severe Alcohol use disorder, severe Plan: -The patient was transferred to the medical floor for continued adequate evaluation and management altered mental status and hypotension. Vital Signs Temp 98.3 F 07/04/21 07:57 Pulse 80 07/04/21 07:57 Resp 17 07/04/21 07:57 BP 124/76 07/04/21 07:57 Pulse Ox 97 07/04/21 07:57 Intake & Output 07/03/21 07/04/21 07/04/21 18:59 06:59 18:59 Intake Total 400 200 Balance 400 200 Weight 51 kg Intake: Oral 400 200 Other: # Voids 1 Laboratory Results WBC 11.6 k/uL (3.8-10.6) H 07/04/21 09:03 RBC 3.25 m/uL (4.30-5.90) L 07/04/21 09:03 Hgb 9.6 gm/dL (13.0-17.5) L 07/04/21 09:03 Hct 30.9 % (39.0-53.0) L 07/04/21 09:03 MCV 95.0 fL (80.0-100.0) 07/04/21 09:03 MCH 29.5 pg (25.0-35.0) 07/04/21 09:03 MCHC 31.1 g/dL (31.0-37.0) 07/04/21 09:03 RDW 14.2 % (11.5-15.5) 07/04/21 09:03 Plt Count 445 k/uL (150-450) 07/04/21 09:03 MPV 7.4 07/04/21 09:03 Neutrophils % 75 % 07/04/21 09:03 Lymphocytes % 12 % 07/04/21 09:03 Monocytes % 6 % 07/04/21 09:03 Eosinophils % 6 % 07/04/21 09:03 Basophils % 1 % 07/04/21 09:03 Neutrophils # 8.7 k/uL (1.3-7.7) H 07/04/21 09:03 Lymphocytes # 1.4 k/uL (1.0-4.8) 07/04/21 09:03 Monocytes # 0.7 k/uL (0-1.0) 07/04/21 09:03 Eosinophils # 0.6 k/uL (0-0.7) 07/04/21 09:03 Basophils # 0.1 k/uL (0-0.2) 07/04/21 09:03 Hypochromasia Slight 07/04/21 09:03 Sodium 137 mmol/L (137-145) 07/04/21 09:03 Potassium 4.6 mmol/L (3.5-5.1) 07/04/21 09:03 Chloride 107 mmol/L (98-107) 07/04/21 09:03 Carbon Dioxide 25 mmol/L (22-30) 07/04/21 09:03 Anion Gap 5 mmol/L 07/04/21 09:03 BUN 12 mg/dL (9-20) 07/04/21 09:03 Creatinine 0.86 mg/dL (0.66-1.25) 07/04/21 09:03 Est GFR (CKD-EPI)AfAm >90 (>60 ml/min/1.73 sqM) 07/04/21 09:03 Est GFR (CKD-EPI)NonAf >90 (>60 ml/min/1.73 sqM) 07/04/21 09:03 Glucose 103 mg/dL (74-99) H 07/04/21 09:03 Calcium 8.6 mg/dL (8.4-10.2) 07/04/21 09:03 Magnesium 2.1 mg/dL (1.6-2.3) 07/04/21 09:03 Total Bilirubin 0.4 mg/dL (0.2-1.3) 07/04/21 09:03 AST 20 U/L (17-59) 07/04/21 09:03 ALT 7 U/L (4-49) 07/04/21 09:03 Alkaline Phosphatase 73 U/L (38-126) 07/04/21 09:03 Total Protein 5.2 g/dL (6.3-8.2) L 07/04/21 09:03 Albumin 2.8 g/dL (3.5-5.0) L 07/04/21 09:03 Globulin 2.4 g/dL 07/04/21 09:03 Albumin/Globulin Ratio 1.2 07/04/21 09:03 Patient Condition at Discharge: Undetermined Plan - Discharge Summary Discharge Rx Participant: No New Discharge Prescriptions: No Action amLODIPine [Norvasc] 5 mg PO DAILY@0800 QUEtiapine [SEROquel] 400 mg PO HS@2000 Mirtazapine 30 mg PO HS@2100 FLUoxetine HCL 80 mg PO DAILY@0800 Omeprazole 20 mg PO DAILY@0800 Atorvastatin [Lipitor] 20 mg PO HS@2099 Cholecalciferol (Vitamin D3) [Vitamin D3 (5000 Iu)] 125 mcg PO DAILY@0800 Naltrexone HCl [Revia] 50 mg PO DAILY@0800 [place] Carbonate 600 mg PO HS@2099 Discharge Medication List Omeprazole 20 mg PO DAILY@0801/09/21 [History] Atorvastatin [Lipitor] 20 mg PO HS@209901/19/21 [History] amLODIPine [Norvasc] 5 mg PO DAILY@79901/19/21 [History] Cholecalciferol (Vitamin D3) [Vitamin D3 (5000 Iu)] 125 mcg PO DAILY@0801/26/21 [History] [place] Carbonate 600 mg PO HS@209904/21/21 [History] Mirtazapine 30 mg PO HS@209904/21/21 [History] Naltrexone HCl [Revia] 50 mg PO DAILY@79904/21/21 [History] QUEtiapine [SEROquel] 400 mg PO HS@199904/21/21 [History] FLUoxetine HCL 80 mg PO DAILY@0806/29/21 [History]
--- NOTE | 2021-07-04 14:11 | P.CN ---
Psychiatric Consult - . Consult date: 07/04/21 Consult:: 07/04/21 14:11 IDENTIFYING DATA: This patient is a single, on Social Security disability, 55-year-old male with significant history of depression and alcohol abuse was admitted for suicidal ideation. The patient was admitted on the mental health unit and was transferred to the medical floor due to hypertension, altered mental status, and unsteadiness of gait. HISTORY OF PRESENT ILLNESS: The patient presented to the hospital on 06/29/21, presenting to the emergency department by police for intoxication and suicidal ideation. The patient was subsequently admitted to the psychiatric unit where he was restarted on his home medications of lithium, Remeron, Seroquel, and ReVia. The patient did well on this regimen and no longer endorsing any suicidal ideation but continued to endorse precontemplation regarding his a lcohol abuse. At 2:27 on 07/04/21, the patient was noted to have an unsteady gait and was staggering and the hallways. He was subsequently admitted on the medical floor for altered mental status and his unsteadiness of gait. The patient's blood pressure was noted to be hypotensive and the patient had noted lab abnormalities. Upon evaluation on the medical floor, the patient reports that he is feeling significantly better. He is currently not endorsing any suicidal or homicidal ideation, intention, or plan. He is not reporting any auditory or visual hallucinations. He is reporting no paranoia or other delusions. The patient states that he would like to go home. He acknowledges that if he was to go home AGAINST MEDICAL ADVICE that he risks further deterioration of health and possible . The patient reports that his primary reason for wanting to leave this so that he can smoke a cigarette again. The patient was counseled at length on substance abuse and how it contributes to his mental health. Currently, the patient not reporting any significant symptoms of depression. He reports no issues regarding his sleep or his appetite. He denies any access to firearms or other weapons. He appears to have capacity to make medical decisions and is wishing to leave AGAINST MEDICAL ADVICE. PAST PSYCHIATRIC HISTORY: Patient has previous diagnoses of major depressive disorder, and alcohol use disorder. The patient has had multiple trials of medications including Neurontin, Ativan, Effexor, Cogentin, Lexapro, Haldol, Topamax, Zoloft. He is currently on a regimen of lithium, Prozac, Remeron, and ReVia. The patient has had multiple inpatient psychiatric admissions with the last one being in February 2021. The patient has had 10 previous inpatient psychiatric admissions since 2014. The patient is currently open with Dr. Bernard at [facility]. The patient does report previous attempts at suicide. PAST MEDICAL HISTORY: Past Medical History: Chest Pain / Angina, Hypertension Additional Past Medical History / Comment(s): ETOH History of Any Multi-Drug Resistant Organisms: None Reported Past Surgical History: Orthopedic Surgery Additional Past Surgical History / Comment(s): Right knee surgery and salma placed in left femur, 3 surgeries on his eyes. Past Anesthesia/Blood Transfusion Reactions: No Reported Reaction Past Psychological History: Anxiety, Bipolar, Depression, Schizoaffective Disorder Smoking Status: Current every day smoker Past Alcohol Use History: Abuse, Daily, Heavy Past Drug Use History: None Reported ALLERGIES: NO KNOWN DRUG ALLERGIES CHEMICAL DEPENDENCY HISTORY: The patient has significant history of alcohol use disorder and has been to rehabilitation at [place] multiple times. He also has a previous history of marijuana use, cocaine, and LSD use. He smokes daily. FAMILY PSYCHIATRIC/SUBSTANCE USE HISTORY: The patient's father was an alcoholic. SOCIAL HISTORY: Patient is currently a resident at [facility]. He is currently open with ACT services. He is single, never . He has no children. He is currently unemployed and receives Social Security disability.. MENTAL STATUS EXAM: General Appearance: Patient appears to be stated age is alert, pleasant, and cooperative. Patient appears to have fair hygiene and grooming wearing hospital gown with fair eye contact. Behavior: Patient is calmly lying in bed without any agitated behavior. Speech: Patient's speech is fluent and nonpressured. Mood/Affect: Patient reports their mood is "feeling okay", affect is congruent and at times irritable Suicidality/Homicidality: Patient denies having any suicidal or homicidal ideation intent or plan. Perceptions: Patient denies any visual hallucinations and denies any auditory hallucinations Though content/process: There is no evidence of any delusional thought content and thought process is linear and goal-directed. Memory and concentration: AOX3, grossly intact for the purposes of this session. Can spell "WORLD" backwards Judgment and insight: Fair Vital Signs Temp 98.3 F 07/04/21 07:57 Pulse 80 07/04/21 07:57 Resp 17 07/04/21 07:57 BP 124/76 07/04/21 07:57 Pulse Ox 97 07/04/21 07:57 Intake & Output 07/03/21 07/04/21 07/04/21 18:59 06:59 18:59 Intake Total 400 200 Balance 400 200 Weight 51 kg Intake: Oral 400 200 Other: # Voids 1 Laboratory Results - Last 24 Hours 07/04/21 07/04/21 07/04/21 07:21 07:21 09:03 WBC 12.1 H 11.6 H RBC 3.17 L 3.25 L Hgb 9.3 L 9.6 L Hct 29.3 L 30.9 L MCV 92.7 95.0 MCH 29.3 29.5 MCHC 31.6 31.1 RDW 14.3 14.2 Plt Count 460 H 445 MPV 7.3 7.4 Neutrophils % 73 75 Lymphocytes % 14 12 Monocytes % 6 6 Eosinophils % 5 6 Basophils % 0 1 Neutrophils # 8.8 H 8.7 H Lymphocytes # 1.7 1.4 Monocytes # 0.7 0.7 Eosinophils # 0.7 0.6 Basophils # 0.0 0.1 Hypochromasia Slight Sodium 136 L Potassium 4.3 Chloride 106 Carbon Dioxide 25 Anion Gap 5 BUN 13 Creatinine 0.77 Est GFR (CKD-EPI)AfAm >90 Est GFR (CKD-EPI)NonAf >90 Glucose 96 Calcium 8.4 Magnesium Total Bilirubin AST ALT Alkaline Phosphatase Total Protein Albumin Globulin Albumin/Globulin Ratio 07/04/21 09:03 WBC RBC Hgb Hct MCV MCH MCHC RDW Plt Count MPV Neutrophils % Lymphocytes % Monocytes % Eosinophils % Basophils % Neutrophils # Lymphocytes # Monocytes # Eosinophils # Basophils # Hypochromasia Sodium 137 Potassium 4.6 Chloride 107 Carbon Dioxide 25 Anion Gap 5 BUN 12 Creatinine 0.86 Est GFR (CKD-EPI)AfAm >90 Est GFR (CKD-EPI)NonAf >90 Glucose 103 H Calcium 8.6 Magnesium 2.1 Total Bilirubin 0.4 AST 20 ALT 7 Alkaline Phosphatase 73 Total Protein 5.2 L Albumin 2.8 L Globulin 2.4 Albumin/Globulin Ratio 1.2 IMPRESSIONS: Near-syncopal episode Major depressive disorder, recurrent, severe Alcohol use disorder PLAN: -At this time patient DOES NOT meet criteria for inpatient psychiatric admission. The patient has been displaying significant improvement in mood over the last few days prior to his transfer to the medical floor. He is currently not presenting with any imminent risk of harm to himself or others. He is not psychotic and is alert and oriented in all spheres. -Patient DOES have decision making capacity at this time and is able to reason through and communicate/appreciate the risks, benefits and alternatives to treatment.] The patient does have the capacity to sign out AMA if so desired. This provider spent a significant amount of time discussing the risks of signing out AGAINST MEDICAL ADVICE and encouraged the patient to stay for further medical evaluation. -Would recommend the following medication changes/additions: As per discussion with the patient, we will education is that he was taken on the unit with slight decrease in his Seroquel and Remeron due to concerns for hypotension and altered gait. -Patient should be discharged on ReVia 50 mg daily for alcohol cessation, Remeron 15 mg at bedtime for depression/insomnia, Seroquel 300 mg by mouth at bedtime for mood stabilization, and lithium 600 mg by mouth at bedtime for mood stabilization/suicidality -Patient is psychiatrically cleared for discharge. -Psychiatry will sign off at this point, please contact with any questions. 07/04/21 14:11 Assessment and Plan (1) Bipolar I disorder, most recent episode depressed Status: Chronic Priority: High Code(s): F31.30 - BIPOLAR DISORD, CRNT EPSD DEPRESS, MILD OR MOD SEVERT, UNSP SNOMED Code(s): 960533996 (2) Alcohol dependence Status: Chronic Priority: Medium Code(s): F10.20 - ALCOHOL DEPENDENCE, UNCOMPLICATED SNOMED Code(s): 70693370 (3) Nicotine dependence Status: Chronic Priority: Medium Code(s): F17.200 - NICOTINE DEPENDENCE, UNSPECIFIED, UNCOMPLICATED SNOMED Code(s): 67384111
--- NOTE | 2021-07-04 19:51 | HP ---
HISTORY AND PHYSICAL CHIEF COMPLAINT: Hypotension and acute alcohol intoxication. HISTORY OF PRESENT ILLNESS: This is another recent admission for this is chronic alcoholic. He apparently came back to the emergency room intoxicated and stated that he was suicidal. He inadvisably was placed on [address]. In the middle of the night he said he dropped his blood pressure is 70 and became very agitated. A-team was called. He was admitted to the medical floor. REVIEW OF SYSTEMS: Was not obtained. HISTORY: Past medical history, family history and personal and social histories were not obtained and presumed unchanged from his discharge several days ago. PHYSICAL EXAMINATION: Blood pressure 70/35 with a pulse of 81, respirations of 15. In general he appeared to be slender and intoxicated. Head, ears, eyes, nose, mouth and throat were normal except for his strabismus. Neck veins not distended and neck was supple. Chest clear. Cardiac exam demonstrated sinus rhythm and abdomen was soft and nontender. Extremities normal. IMPRESSION: 1. Acute alcohol intoxication. 2. Hypotension. 3. Dehydration. 4. Chronic alcoholism. 5. Strabismus. PLAN: Bedrest. IV bolus of normal saline followed by continuous IV fluid infiltration along with CIWA protocol. MMODL / IJN: [id number] /
[2021-07-04] MEDS ORDERED: QUEtiapine 100 MG TAB PO SCH (21:00)
[2021-07-04] MEDS ORDERED: MIRTAZAPINE 15 MG TAB PO SCH (21:00)
[2021-07-04] MEDS ORDERED: LITHIUM CARBONATE 300 MG CAP PO SCH (21:00)
--- NOTE | 2021-07-04 21:38 | DS ---
DISCHARGE SUMMARY CHIEF COMPLAINT: Acute alcohol intoxication, DTs, depression, dehydration and hypotension. HISTORY OF PRESENT ILLNESS AND PHYSICAL EXAMINATION: Details of this man's history and physical can be found in the initial workup. LABORATORY STUDIES: While he was in the hospital, he had laboratory studies, details of which can be found in the laboratory section of his chart. COURSE IN THE HOSPITAL: After admission, he was placed on bedrest and started on intravenous fluids and CIWA protocol with suicide precautions. Later in the day, he decided to sign himself out and psychiatry did not feel that he needed to be certified and placed on a 72 hour hold. FINAL DIAGNOSES: 1. Acute alcohol intoxication. 2. DTs. 3. Dehydration. 4. Hypotension. 5. Strabismus. OPERATIONS: None. CONSULTATION: Psychiatry. He is not improved. MMISHMAEL / BHAVNAN: [id number] /
[2021-07-05] MEDS ORDERED: NALTREXONE HCL 50 MG TAB PO SCH (09:00)
== END 2021-07-04 13:56 | disposition left against medical advice (07) ==
LOC: 4SSUR 04:01
PROVIDERS: ADMIT Family Medicine; ATTEND Family Medicine
DX: F31.30 Bipolar disorder, current episode depressed, mild or moderate severity, unspecified (principal); F10.229 Alcohol dependence with intoxication, unspecified; F17.210 Nicotine dependence, cigarettes, uncomplicated; R45.851 Suicidal ideations; I95.9 Hypotension, unspecified; E86.0 Dehydration; H50.9 Unspecified strabismus; F10.231 Alcohol dependence with withdrawal delirium; I10 Essential (primary) hypertension; F41.9 Anxiety disorder, unspecified; F25.9 Schizoaffective disorder, unspecified; R55 Syncope and collapse; R45.84 Anhedonia; Z56.0 Unemployment, unspecified; Z71.89 Other specified counseling; Z53.29 Procedure and treatment not carried out because of patient's decision for other reasons; Z79.899 Other long term (current) drug therapy; Z91.5 Personal history of self-harm; Z59.9 Problem related to housing and economic circumstances, unspecified; Z81.1 Family history of alcohol abuse and dependence
CPT/HCPCS: 80053; 80048; 83735; 85025; G0378; G0379

== ENCOUNTER 2021-07-07 07:48 | Emergency (ER) | payer OTHER ==
--- NOTE | 2021-07-07 08:43 | ED ---
General Adult HPI - General Chief complaint: Psychiatric Symptoms Stated complaint: mental health, chest pain Time Seen by Provider: 07/07/21 07:54 Source: patient, EMS, RN notes reviewed, old records reviewed Mode of arrival: EMS Limitations: no limitations - History of Present Illness Initial comments: 55-year-old male presenting for evaluation of suicidal ideation. Patient states he plans to step in front of a bus. He is currently living in alf and has been abstaining from alcohol. He is also reporting a substernal chest pain which is nonradiating. No associated vomiting or diaphoresis. He states he does have chest pain quite frequently and this is similar in character. - Related Data Home Medications Medication Instructions Recorded Confirmed Omeprazole 20 mg PO DAILY@79901/09/21 07/07/21 Atorvastatin [Lipitor] 20 mg PO HS@209901/19/21 07/07/21 amLODIPine [Norvasc] 5 mg PO DAILY@79901/19/21 07/07/21 Cholecalciferol (Vitamin D3) 125 mcg PO DAILY@79901/26/21 07/07/21 [Vitamin D3 (5000 Iu)] [place] Carbonate 600 mg PO HS@209904/21/21 07/07/21 Mirtazapine 30 mg PO HS@209904/21/21 07/07/21 Naltrexone HCl [Revia] 50 mg PO DAILY@79904/21/21 07/07/21 QUEtiapine [SEROquel] 400 mg PO HS@199904/21/21 07/07/21 FLUoxetine HCL 80 mg PO DAILY@79906/29/21 07/07/21 Allergies Allergy/AdvReac Type Severity Reaction Status Date / Time No Known Allergies Allergy Verified 07/07/21 09:47 Review of Systems ROS Statement: Those systems with pertinent positive or pertinent negative responses have been documented in the HPI. ROS Other: All systems not noted in ROS Statement are negative. Past Medical History Past Medical History: Chest Pain / Angina, Hypertension Additional Past Medical History / Comment(s): ETOH History of Any Multi-Drug Resistant Organisms: None Reported Past Surgical History: Orthopedic Surgery Additional Past Surgical History / Comment(s): Right knee surgery and salma placed in left femur, 3 surgeries on his eyes. Past Anesthesia/Blood Transfusion Reactions: No Reported Reaction Past Psychological History: Anxiety, Bipolar, Depression, Schizoaffective Disorder Smoking Status: Current every day smoker Past Alcohol Use History: Abuse, Daily, Heavy Past Drug Use History: None Reported - Past Family History Mother Additional Family Medical History / Comment(s): Mother at age 36 from motor vehicle accident. His father is also past but does not know the cause or his age. Patient has 3 brothers that are apparently without major medical problems. General Exam Limitations: no limitations General appearance: alert, in no apparent distress Head exam: Present: atraumatic, normocephalic Eye exam: Present: normal appearance, PERRL ENT exam: Present: normal exam Neck exam: Present: normal inspection. Absent: tenderness, meningismus Respiratory exam: Present: normal lung sounds bilaterally. Absent: respiratory distress, wheezes Cardiovascular Exam: Present: regular rate, normal rhythm GI/Abdominal exam: Present: soft. Absent: distended, tenderness, guarding Extremities exam: Present: normal inspection, normal capillary refill. Absent: pedal edema Neurological exam: Present: alert, oriented X3 Psychiatric exam: Present: depressed, flat affect, suicidal ideation Skin exam: Present: warm, dry, intact. Absent: cyanosis, diaphoretic Course Vital Signs 07/07/21 07/07/21 07/07/21 08:02 09:08 10:00 Temperature 98.2 F Pulse Rate 93 Respiratory 18 18 18 Rate Blood Pressure 114/81 O2 Sat by Pulse 96 Oximetry 07/07/21 11:05 Temperature Pulse Rate Respiratory 18 Rate Blood Pressure O2 Sat by Pulse Oximetry - Reevaluation(s) Reevaluation #1: 07/07/21 09:46 Pt medically clear for EPS EKG Findings - EKG Comments: EKG Findings:: EKG: Normal sinus rhythm, rate of 83, CA interval 158, QRS duration 88, QTC 484, no ST segment elevation. Medical Decision Making - Medical Decision Making Patient had been evaluated by EPS and felt to be safe for discharge. He's been given outpatient referral. Return parameters discussed. - Lab Data Result diagrams: 07/07/21 08:51 07/07/21 08:51 Lab Results 07/07/21 07/07/21 07/07/21 Range/Units 08:51 08:51 08:51 WBC 14.0 H (3.8-10.6) k/uL RBC 3.52 L (4.30-5.90) m/uL Hgb 10.3 L (13.0-17.5) gm/dL Hct 32.8 L (39.0-53.0) % MCV 93.3 (80.0-100.0) fL MCH 29.2 (25.0-35.0) pg MCHC 31.3 (31.0-37.0) g/dL RDW 14.3 (11.5-15.5) % Plt Count 699 H (150-450) k/uL MPV 7.4 Neutrophils % 85 % Lymphocytes % 7 % Monocytes % 5 % Eosinophils % 3 % Basophils % 0 % Neutrophils # 11.9 H (1.3-7.7) k/uL Lymphocytes # 1.0 (1.0-4.8) k/uL Monocytes # 0.7 (0-1.0) k/uL Eosinophils # 0.4 (0-0.7) k/uL Basophils # 0.1 (0-0.2) k/uL Hypochromasia Slight PT 9.7 (9.0-12.0) sec INR 0.9 (<1.2) APTT 24.2 (22.0-30.0) sec Sodium 137 (137-145) mmol/L Potassium 4.3 (3.5-5.1) mmol/L Chloride 106 (98-107) mmol/L Carbon Dioxide 26 (22-30) mmol/L Anion Gap 5 mmol/L BUN 10 (9-20) mg/dL Creatinine 0.90 (0.66-1.25) mg/dL Est GFR (CKD-EPI)AfAm >90 (>60 ml/min/1.73 sqM) Est GFR (CKD-EPI)NonAf >90 (>60 ml/min/1.73 sqM) Glucose 93 (74-99) mg/dL Calcium 9.2 (8.4-10.2) mg/dL Magnesium 2.2 (1.6-2.3) mg/dL Total Bilirubin 0.6 (0.2-1.3) mg/dL AST 24 (17-59) U/L ALT 8 (4-49) U/L Alkaline Phosphatase 104 (38-126) U/L Troponin I (0.000-0.034) ng/mL Total Protein 6.3 (6.3-8.2) g/dL Albumin 3.4 L (3.5-5.0) g/dL Urine Opiates Screen (NotDetected) Ur Oxycodone Screen (NotDetected) Urine Methadone Screen (NotDetected) Ur Propoxyphene Screen (NotDetected) Ur Barbiturates Screen (NotDetected) U Tricyclic Antidepress (NotDetected) Ur Phencyclidine Scrn (NotDetected) Ur Amphetamines Screen (NotDetected) U Methamphetamines Scrn (NotDetected) U Benzodiazepines Scrn (NotDetected) Urine Cocaine Screen (NotDetected) U Marijuana (THC) Screen (NotDetected) 07/07/21 07/07/21 Range/Units 08:51 10:56 WBC (3.8-10.6) k/uL RBC (4.30-5.90) m/uL Hgb (13.0-17.5) gm/dL Hct (39.0-53.0) % MCV (80.0-100.0) fL MCH (25.0-35.0) pg MCHC (31.0-37.0) g/dL RDW (11.5-15.5) % Plt Count (150-450) k/uL MPV Neutrophils % % Lymphocytes % % Monocytes % % Eosinophils % % Basophils % % Neutrophils # (1.3-7.7) k/uL Lymphocytes # (1.0-4.8) k/uL Monocytes # (0-1.0) k/uL Eosinophils # (0-0.7) k/uL Basophils # (0-0.2) k/uL Hypochromasia PT (9.0-12.0) sec INR (<1.2) APTT (22.0-30.0) sec Sodium (137-145) mmol/L Potassium (3.5-5.1) mmol/L Chloride (98-107) mmol/L Carbon Dioxide (22-30) mmol/L Anion Gap mmol/L BUN (9-20) mg/dL Creatinine (0.66-1.25) mg/dL Est GFR (CKD-EPI)AfAm (>60 ml/min/1.73 sqM) Est GFR (CKD-EPI)NonAf (>60 ml/min/1.73 sqM) Glucose (74-99) mg/dL Calcium (8.4-10.2) mg/dL Magnesium (1.6-2.3) mg/dL Total Bilirubin (0.2-1.3) mg/dL AST (17-59) U/L ALT (4-49) U/L Alkaline Phosphatase (38-126) U/L Troponin I <0.012 (0.000-0.034) ng/mL Total Protein (6.3-8.2) g/dL Albumin (3.5-5.0) g/dL Urine Opiates Screen Not Detected (NotDetected) Ur Oxycodone Screen Detected H (NotDetected) Urine Methadone Screen Not Detected (NotDetected) Ur Propoxyphene Screen Not Detected (NotDetected) Ur Barbiturates Screen Not Detected (NotDetected) U Tricyclic Antidepress Detected H (NotDetected) Ur Phencyclidine Scrn Not Detected (NotDetected) Ur Amphetamines Screen Not Detected (NotDetected) U Methamphetamines Scrn Not Detected (NotDetected) U Benzodiazepines Scrn Detected H (NotDetected) Urine Cocaine Screen Not Detected (NotDetected) U Marijuana (THC) Screen Detected H (NotDetected) Disposition Clinical Impression: Major depression, Suicidal ideation Disposition: HOME SELF-CARE Condition: Fair Instructions (If sedation given, give patient instructions): Depression (ED) Is patient prescribed a controlled substance at d/c from ED?: No Referrals: Kermit Partida MD [Primary Care Provider] - 1-2 days Time of Disposition: 12:28
[2021-07-07 09:00] LABS: Basophils # (A) 0.1 k/uL (0-0.2); Basophils % (A) 0 %; Eosinophils # (A) 0.4 k/uL (0-0.7); Eosinophils % (A) 3 %; HCT 32.8 % (39.0-53.0); HGB 10.3 gm/dL (13.0-17.5); Hypochromasia Slight; Lymphocytes % (A) 7 %; MCH 29.2 pg (25.0-35.0); MCHC 31.3 g/dL (31.0-37.0); MCV 93.3 fL (80.0-100.0); Mean Platelet Volume 7.4; Monocytes # (A) 0.7 k/uL (0-1.0); Monocytes % (A) 5 %; Neutrophils # (A) 11.9 k/uL (1.3-7.7); Neutrophils % (A) 85 %; Platelet Count 699 k/uL (150-450); RBC 3.52 m/uL (4.30-5.90); RDW 14.3 % (11.5-15.5)
--- NOTE | 2021-07-07 09:03 | XR ---
EXAMINATION TYPE: XR chest 2V DATE OF EXAM: 07/07/2021 COMPARISON: Chest x-ray 06/29/2021 HISTORY: Chest pain TECHNIQUE: Frontal and lateral views of the chest are obtained. FINDINGS: There is no focal air space opacity, pleural effusion, or pneumothorax seen. The cardiac silhouette size is within normal limits. The osseous structures are stable, suspect acromial clavic ular separation on the right, there are associated ossific fragments as on prior exam, chronic findin g. Patient is rotated. IMPRESSION: No acute cardiopulmonary process.
[2021-07-07 09:11] LABS: INR 0.9 (<1.2)
[2021-07-07 09:12] LABS: Partial Thromboplastin Time 24.2 sec (22.0-30.0); Prothrombin Time 9.7 sec (9.0-12.0)
[2021-07-07 09:15] LABS: ALT 8 U/L (4-49); AST 24 U/L (17-59); African American GFR (CKD) >90 (>60 ml/min/1.73 sqM); Albumin 3.4 g/dL (3.5-5.0); Alkaline Phosphatase 104 U/L (38-126); Anion Gap 5 mmol/L; Blood Urea Nitrogen 10 mg/dL (9-20); Calcium 9.2 mg/dL (8.4-10.2); Carbon Dioxide 26 mmol/L (22-30); Chloride 106 mmol/L (98-107); Glucose 93 mg/dL (74-99); Magnesium 2.2 mg/dL (1.6-2.3); Non-African American GFR(CKD) >90 (>60 ml/min/1.73 sqM); Potassium 4.3 mmol/L (3.5-5.1); Sodium 137 mmol/L (137-145); Total Bilirubin 0.6 mg/dL (0.2-1.3); Total Protein 6.3 g/dL (6.3-8.2)
[2021-07-07 12:02] LABS: Amphetamine Screen,Urine Not Detected (NotDetected); Benzodiazepines Screen,Urine Detected (NotDetected); Cocaine Screen,Urine Not Detected (NotDetected); Opiate Screen,Urine Not Detected (NotDetected); Phencyclidine Screen,Urine Not Detected (NotDetected); Tricyclic Antidepressant,Urine Detected (NotDetected); Urn Cannabinoid Scrn Detected (NotDetected)
[2021-07-07 12:03] LABS: Barbiturate Screen,Urine Not Detected (NotDetected); Methadone Screen, Urine Not Detected (NotDetected); Oxycodone Screen, Urine Detected (NotDetected)
[2021-07-07 13:07] VITALS: BP 120/78; PULSE 86; RESP 20; TEMP 98.4
== END 2021-07-07 13:06 | disposition home or self-care (01) ==
LOC: EC 07:48
DX: F32.9 Major depressive disorder, single episode, unspecified (principal); R45.851 Suicidal ideations; R07.2 Precordial pain; F25.9 Schizoaffective disorder, unspecified; F41.9 Anxiety disorder, unspecified; I10 Essential (primary) hypertension; F17.200 Nicotine dependence, unspecified, uncomplicated; Z59.0 Homelessness
CPT/HCPCS: 36415; 71046; 80053; 80306; 82075; 83735; 84484; 85025; 85610; 85730; 93005; 99285

== ENCOUNTER 2021-07-10 02:11 | Emergency (ER) | payer OTHER ==
[2021-07-10 02:29] VITALS: BP 132/85; PULSE 94; RESP 20; TEMP 98.5
--- NOTE | 2021-07-10 05:55 | ED ---
Psych HPI - General Chief Complaint: Psychiatric Symptoms Stated Complaint: Mental Health Time Seen by Provider: 07/10/21 02:34 Source: patient, police Mode of arrival: ambulatory - History of Present Illness Initial Comments: This patient is a 55-year-old man brought by law enforcement to have psychiatric evaluation. He had reportedly been seen at outside and then told law en forcement he was going to walk in front of traffic. When I interview the patient, he admits to drinking earlier. When I have seen him he states that he doesn't feel like walking in traffic any longer. MD Complaint: suicidal ideation -: minutes(s) Associated Psychiatric Symptoms: depression, suicidal ideation History of same: Yes Quality: resolved prior to arrival Improves With: none Worsens With: none Context: recent alcohol abuse Associated Symptoms: denies other symptoms - Related Data Home Medications Medication Instructions Recorded Confirmed Omeprazole 20 mg PO DAILY@79901/09/21 07/07/21 Atorvastatin [Lipitor] 20 mg PO HS@209901/19/21 07/07/21 amLODIPine [Norvasc] 5 mg PO DAILY@79901/19/21 07/07/21 Cholecalciferol (Vitamin D3) 125 mcg PO DAILY@79901/26/21 07/07/21 [Vitamin D3 (5000 Iu)] [place] Carbonate 600 mg PO HS@209904/21/21 07/07/21 Mirtazapine 30 mg PO HS@209904/21/21 07/07/21 Naltrexone HCl [Revia] 50 mg PO DAILY@79904/21/21 07/07/21 QUEtiapine [SEROquel] 400 mg PO HS@199904/21/21 07/07/21 FLUoxetine HCL 80 mg PO DAILY@79906/29/21 07/07/21 Allergies Allergy/AdvReac Type Severity Reaction Status Date / Time No Known Allergies Allergy Verified 07/10/21 02:29 Review of Systems ROS Statement: Those systems with pertinent positive or pertinent negative responses have been documented in the HPI. ROS Other: All systems not noted in ROS Statement are negative. Constitutional: Denies: fever, chills Respiratory: Denies: cough, dyspnea Cardiovascular: Denies: chest pain, palpitations Gastrointestinal: Denies: abdominal pain, vomiting Musculoskeletal: Denies: back pain Skin: Denies: rash Neurological: Denies: headache, weakness Psychiatric: Reports: depression. Denies: auditory hallucinations, visual hallucinations, homicidal thoughts, suicidal thoughts Past Medical History Past Medical History: Chest Pain / Angina, Hypertension Additional Past Medical History / Comment(s): ETOH History of Any Multi-Drug Resistant Organisms: None Reported Past Surgical History: Orthopedic Surgery Additional Past Surgical History / Comment(s): Right knee surgery and salma placed in left femur, 3 surgeries on his eyes. Past Anesthesia/Blood Transfusion Reactions: No Reported Reaction Past Psychological History: Anxiety, Bipolar, Depression, Schizoaffective Disorder Smoking Status: Current every day smoker Past Alcohol Use History: Abuse, Daily, Heavy Past Drug Use History: None Reported - Past Family History Mother Additional Family Medical History / Comment(s): Mother at age 36 from motor vehicle accident. His father is also past but does not know the cause or his age. Patient has 3 brothers that are apparently without major medical problems. General Exam Limitations: no limitations General appearance: alert, in no apparent distress, appears intoxicated Head exam: Present: atraumatic, normocephalic Eye exam: Present: normal appearance. Absent: scleral icterus, conjunctival injection Respiratory exam: Present: normal lung sounds bilaterally. Absent: respiratory distress, wheezes, rales, rhonchi, stridor Cardiovascular Exam: Present: regular rate, normal rhythm, normal heart sounds. Absent: systolic murmur, diastolic murmur, rubs, gallop GI/Abdominal exam: Present: soft. Absent: distended, tenderness, guarding, rebound, rigid, mass Neurological exam: Present: alert Psychiatric exam: Present: depressed. Absent: agitated, anxious, flat affect, manic, homicidal ideation, suicidal ideation Skin exam: Present: warm, dry, intact, normal color. Absent: rash Course Vital Signs 07/10/21 02:25 Temperature 98.5 F Pulse Rate 94 Respiratory 20 Rate Blood Pressure 132/85 O2 Sat by Pulse 97 Oximetry Disposition Clinical Impression: Alcohol intoxication Disposition: HOME SELF-CARE Condition: Good Instructions (If sedation given, give patient instructions): Alcohol Intoxication (ED) Is patient prescribed a controlled substance at d/c from ED?: No Referrals: Kermit Partida MD [Primary Care Provider] - 1-2 days
== END 2021-07-10 06:27 | disposition home or self-care (01) ==
LOC: EC 02:11
DX: F10.129 Alcohol abuse with intoxication, unspecified (principal); I10 Essential (primary) hypertension; F41.9 Anxiety disorder, unspecified; F31.9 Bipolar disorder, unspecified; F17.200 Nicotine dependence, unspecified, uncomplicated; Y90.9 Presence of alcohol in blood, level not specified
CPT/HCPCS: 82075; 99284

== ENCOUNTER 2021-07-11 15:45 | Inpatient (IN) | payer MEDICAID, OTHER ==
--- NOTE | 2021-07-11 16:58 | ED ---
General Adult HPI - General Chief complaint: Psychiatric Symptoms Stated complaint: sucide Time Seen by Provider: 07/11/21 16:25 Source: patient, police, RN notes reviewed, old records reviewed Mode of arrival: ambulatory - History of Present Illness Initial comments: 55-year-old male presents for reevaluation of suicidal ideation. Patient does admit to alcohol consumption today, states he had several beers. He states that he was picked up by police and had indicated that he had suicidal thoughts. He denies a suicide attempt. He states his plan is to step out in front of traffic. [facility] No physical complaints. - Related Data Home Medications Medication Instructions Recorded Confirmed Omeprazole 20 mg PO DAILY@79901/09/21 07/11/21 Atorvastatin [Lipitor] 20 mg PO HS@209901/19/21 07/11/21 amLODIPine [Norvasc] 5 mg PO DAILY@79901/19/21 07/11/21 Cholecalciferol (Vitamin D3) 125 mcg PO DAILY@79901/26/21 07/11/21 [Vitamin D3 (5000 Iu)] [place] Carbonate 600 mg PO HS@209904/21/21 07/11/21 Mirtazapine 30 mg PO HS@209904/21/21 07/11/21 Naltrexone HCl [Revia] 50 mg PO DAILY@79904/21/21 07/11/21 QUEtiapine [SEROquel] 400 mg PO HS@199904/21/21 07/11/21 FLUoxetine HCL 80 mg PO DAILY@79906/29/21 07/11/21 Allergies Allergy/AdvReac Type Severity Reaction Status Date / Time No Known Allergies Allergy Verified 07/11/21 17:47 Review of Systems ROS Statement: Those systems with pertinent positive or pertinent negative responses have been documented in the HPI. ROS Other: All systems not noted in ROS Statement are negative. Past Medical History Past Medical History: Chest Pain / Angina, Hypertension Additional Past Medical History / Comment(s): ETOH History of Any Multi-Drug Resistant Organisms: None Reported Past Surgical History: Orthopedic Surgery Additional Past Surgical History / Comment(s): Right knee surgery and salma placed in left femur, 3 surgeries on his eyes. Past Anesthesia/Blood Transfusion Reactions: No Reported Reaction Past Psychological History: Anxiety, Bipolar, Depression, Schizoaffective Disorder Smoking Status: Current every day smoker Past Alcohol Use History: Abuse, Daily, Heavy Past Drug Use History: None Reported - Past Family History Mother Additional Family Medical History / Comment(s): Mother at age 36 from motor vehicle accident. His father is also past but does not know the cause or his age. Patient has 3 brothers that are apparently without major medical problems. General Exam General appearance: alert, in no apparent distress Head exam: Present: atraumatic, normocephalic Eye exam: Present: normal appearance, PERRL ENT exam: Present: normal exam Neck exam: Present: normal inspection. Absent: tenderness, meningismus Respiratory exam: Present: normal lung sounds bilaterally. Absent: respiratory distress Cardiovascular Exam: Present: regular rate, normal rhythm GI/Abdominal exam: Present: soft. Absent: distended, tenderness, guarding Extremities exam: Present: normal inspection, normal capillary refill. Absent: pedal edema Neurological exam: Present: alert, oriented X3, CN II-XII intact. Absent: motor sensory deficit Psychiatric exam: Present: depressed, suicidal ideation Skin exam: Present: warm, dry, intact. Absent: cyanosis, diaphoretic Course Vital Signs 07/11/21 16:15 Temperature 98.1 F Pulse Rate 87 Respiratory 16 Rate Blood Pressure 116/77 O2 Sat by Pulse 98 Oximetry Medical Decision Making - Medical Decision Making 55-year-old male presenting with depression, suicidal ideation. Patient had been medically cleared and evaluated by EPS. [place] to require inpatient psychiatric evaluation and treatment. He will be admitted to this institution. Disposition Clinical Impression: Suicidal ideation, Alcohol abuse, Depression Disposition: ADMITTED IP TO THIS HOSP Condition: Stable Is patient prescribed a controlled substance at d/c from ED?: No Referrals: Kermit Partida MD [Primary Care Provider] - 1-2 days Decision to Admit Reason: Admit from EC Decision Date: 07/11/21 Decision Time: 17:53
[2021-07-11] MEDS ORDERED: MAG HYDROX/AL HYDROX/SIMETH 30 ML CUP PO PRN (23:33)
[2021-07-11] MEDS ORDERED: LORazepam 2 MG/ML INJ IM PRN (23:36)
[2021-07-12] MEDS ORDERED: haloperidoL 5 MG TAB PO PRN (00:30)
[2021-07-12] MEDS ORDERED: HALOPERIDOL LACTATE 5 MG/ML 1 ML VIAL IM PRN (00:30)
[2021-07-12] MEDS ORDERED: LORazepam 1 MG TAB PO PRN (00:30)
[2021-07-12] MEDS ORDERED: ACETAMINOPHEN TAB 325 MG TAB PO PRN (00:30)
[2021-07-12 07:37] LABS: Basophils # (A) 0.1 k/uL (0-0.2); Basophils % (A) 1 %; Eosinophils # (A) 0.4 k/uL (0-0.7); Eosinophils % (A) 3 %; HCT 39.4 % (39.0-53.0); HGB 11.9 gm/dL (13.0-17.5); Hypochromasia Slight; Lymphocytes # (A) 2.2 k/uL (1.0-4.8); Lymphocytes % (A) 20 %; MCH 28.7 pg (25.0-35.0); MCHC 30.3 g/dL (31.0-37.0); MCV 94.8 fL (80.0-100.0); Mean Platelet Volume 6.9; Monocytes # (A) 0.7 k/uL (0-1.0); Monocytes % (A) 7 %; Neutrophils # (A) 7.6 k/uL (1.3-7.7); Neutrophils % (A) 69 %; Platelet Count 896 k/uL (150-450); RBC 4.15 m/uL (4.30-5.90); RDW 14.6 % (11.5-15.5); WBC 11.1 k/uL (3.8-10.6)
[2021-07-12 07:58] LABS: ALT 9 U/L (4-49); AST 22 U/L (17-59); African American GFR (CKD) >90 (>60 ml/min/1.73 sqM); Albumin 3.4 g/dL (3.5-5.0); Alkaline Phosphatase 132 U/L (38-126); Anion Gap 5 mmol/L; Blood Urea Nitrogen 7 mg/dL (9-20); Calcium 9.9 mg/dL (8.4-10.2); Carbon Dioxide 29 mmol/L (22-30); Chloride 111 mmol/L (98-107); Glucose 90 mg/dL (74-99); Non-African American GFR(CKD) 84 (>60 ml/min/1.73 sqM); Potassium 5.6 mmol/L (3.5-5.1); Sodium 145 mmol/L (137-145); Total Bilirubin 0.5 mg/dL (0.2-1.3); Total Protein 6.4 g/dL (6.3-8.2)
[2021-07-12 08:12] LABS: Lithium 0.2 mmol/L
[2021-07-12] MEDS: CHOLECALCIFEROL 25 MCG (1000 IU) TABLET PO SCH (08:24)
[2021-07-12] MEDS: FLUoxetine HCL 20 MG CAP PO SCH (08:24)
[2021-07-12] MEDS: NICOTINE 14MG/24HR PATCH TRANSDERM SCH (08:24)
[2021-07-12] MEDS: NALTREXONE HCL 50 MG TAB PO SCH (08:24)
[2021-07-12] MEDS: amLODIPine 5 MG TAB PO SCH (08:25)
[2021-07-12] MEDS: PANTOPRAZOLE 40 MG TABLET PO SCH (08:45)
[2021-07-12] MEDS ORDERED: MAGNESIUM HYDROXIDE 2,400 MG/10 ML CUP PO PRN (09:00)
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
--- NOTE | 2021-07-12 15:57 | CONS ---
CONSULTATION CHIEF COMPLAINT: Major depression with suicidal thoughts and chronic alcoholism. HISTORY OF PRESENT ILLNESS: This is another readmission for this 55-year-old white male who has been in and out of the hospital repeatedly over the last several months. He comes in acutely intoxicated with DTs and alcoholic hepatitis. He states that he is suicidal, but then when he becomes sober he signs out. REVIEW OF SYSTEMS: He denies any headaches, chest pain, abdominal pain, DTs, etc. Past medical history, family history, and personal and social histories are all otherwise unchanged. PHYSICAL EXAMINATION: Blood pressure is 132/85 with a pulse of 70, respirations of 32, and he is afebrile. In general he appeared to be slender and in no acute distress. He was sleeping at the time. Head, ears, eyes, nose and throat demonstrate esotropia OD. Chest is clear. Cardiac exam is normal. Abdomen is soft, nontender without any ascites or masses. Extremities are normal. IMPRESSION: 1. Major depression with suicidal thoughts. 2. Chronic alcoholism. 3. Acute alcohol intoxication. 4. Alcoholic hepatitis. 5. Chronic obstructive pulmonary disease. 6. Cirrhosis. RECOMMENDATIONS: None. I am not sure that this gentleman should be on the psychiatric floor until he is medically stable. MMODL / IJN: [id number] /
[2021-07-12] MEDS: LITHIUM CARBONATE 300 MG CAP PO SCH (20:38)
[2021-07-12] MEDS: QUEtiapine 400 MG TAB PO SCH (20:38)
[2021-07-12] MEDS: ATORVASTATIN 20 MG TAB PO SCH (20:38)
[2021-07-12] MEDS ORDERED: MIRTAZAPINE 15 MG TAB PO SCH (21:00)
[2021-07-12] MEDS ORDERED: LITHIUM CARBONATE 300 MG CAP PO SCH (21:00)
[2021-07-13] MEDS: CHOLECALCIFEROL 25 MCG (1000 IU) TABLET PO SCH (08:28)
[2021-07-13] MEDS: LITHIUM CARBONATE 300 MG CAP PO SCH ×2 (08:29→20:10)
[2021-07-13] MEDS: NALTREXONE HCL 50 MG TAB PO SCH (08:29)
[2021-07-13] MEDS: NICOTINE 14MG/24HR PATCH TRANSDERM SCH (08:29)
[2021-07-13] MEDS: PANTOPRAZOLE 40 MG TABLET PO SCH (08:29)
[2021-07-13] MEDS: amLODIPine 5 MG TAB PO SCH (08:29)
[2021-07-13] MEDS: FLUoxetine HCL 20 MG CAP PO SCH (08:29)
--- NOTE | 2021-07-13 10:33 | P.PN ---
Progress Note - Text Progress Note Date: 07/13/21 Interval History: Patient was seen lying in his bed today and was directable and agreeable to jameson montero with scenario writer in the office. Patient continues to appear to be disheveled in appearance. He has improvement in his irritability today. He states that he is still "not feeling the best" however relates it to struggling with his alcohol use and his depression. He states that he feels the medications have been helping him. He claims that he is having minor withdrawal symptoms at this time and took Ativan yesterday. He states that he wants to have a place to go once he is discharged and claims that he does not know if he'll be allowed back to the residential. He claims that he slept approximately 2-3 hours last pain. At this time patient denies any current suicidal or homical ideations, intent or plan. Patient denies any auditory, visual hallucinations and denies any paranoia or delusions. Patient denies any side effects from the medications and has been compliant with meds. Mental Status Exam: General Appearance: Patient appears to be stated age is alert, directable, and vague and guarded. Patient appears to have poor hygiene and grooming. Disheveled appearance Behavior: Patient is seated without any agitated behavior. Eye contact is poor, improving mildly Speech: Patient's speech is fluent and nonpressured. [place] Mood/Affect: Patient reports their mood is depressed, improving mildly, affect is congruent and constricted. Suicidality/Homicidality: Patient denies any suicidal ideation, homicidal ideation, intention, and/or plan Thought content/Thought Process: No delusional thought content. Thought process appears to be linear and logical in short conversation. Memory and concentration: AOX3, grossly intact for the purposes of this session Judgment and insight: Chronically poor, improving mildly Assessment Major depressive disorder, recurrent, severe Alcohol use disorder, severe Plan: -Patient continues to meet criteria for inpatient psychiatric admission for symptom stabilization and safety. Patient has signed adult voluntary form and medication consent and was placed in patient's chart. -Medications: Continue lithium 300 mg twice a day for mood stabilization/suicidality, Remeron increased to 45 mg daily at bedtime for insomnia/mood/anxiety, Seroquel 400 mg daily at bedtime for mood stabilization/augmentation, naltrexone by mouth 50 mg daily for alcohol use disorder/cravings, continue Prozac 80 mg daily for mood/anxiety. -CIWA protocol with Ativan PRN for ETOH withdrawal -When necessary Ativan and Haldol for agitation/aggression. -NRT - nicotine patch -SW on board for discharge planning. Encouraged the patient to participate in milieu. Patient is a nursing home hold at this time. SW to contact PD and likely arrange for transfer to police custody tomorrow upon discharge,
--- NOTE | 2021-07-13 12:59 | PN ---
PROGRESS NOTE CHIEF COMPLAINT: Major depression and alcoholism. HISTORY OF PRESENT ILLNESS: This gentleman has been stable, not gone into DTs. Yesterday his electrolytes were abnormal. These will be repeated. PHYSICAL EXAM: Unchanged. IMPRESSION: 1. Major depression. 2. Suicidal personality. 3. Chronic alcoholism. 4. Acute alcohol intoxication. 5. Hyperkalemia. 6. Right . PLAN: Repeat electrolytes. MMODL / IJN: [id number] /
[2021-07-13 13:13] LABS: Basophils # (A) 0.1 k/uL (0-0.2); Basophils % (A) 1 %; Eosinophils # (A) 0.4 k/uL (0-0.7); Eosinophils % (A) 4 %; HCT 34.6 % (39.0-53.0); HGB 11.1 gm/dL (13.0-17.5); Lymphocytes # (A) 1.7 k/uL (1.0-4.8); Lymphocytes % (A) 17 %; MCH 29.5 pg (25.0-35.0); MCHC 32.2 g/dL (31.0-37.0); MCV 91.6 fL (80.0-100.0); Mean Platelet Volume 7.6; Monocytes # (A) 0.6 k/uL (0-1.0); Monocytes % (A) 6 %; Neutrophils % (A) 70 %; Platelet Count 725 k/uL (150-450); RBC 3.78 m/uL (4.30-5.90); RDW 15.1 % (11.5-15.5)
[2021-07-13 13:59] LABS: ALT 6 U/L (4-49); AST 20 U/L (17-59); African American GFR (CKD) >90 (>60 ml/min/1.73 sqM); Albumin 3.1 g/dL (3.5-5.0); Alkaline Phosphatase 106 U/L (38-126); Anion Gap 6 mmol/L; Blood Urea Nitrogen 13 mg/dL (9-20); Calcium 9.1 mg/dL (8.4-10.2); Carbon Dioxide 26 mmol/L (22-30); Chloride 108 mmol/L (98-107); Glucose 70 mg/dL (74-99); Non-African American GFR(CKD) >90 (>60 ml/min/1.73 sqM); Potassium 4.5 mmol/L (3.5-5.1); Sodium 140 mmol/L (137-145); Total Bilirubin 0.4 mg/dL (0.2-1.3); Total Protein 5.8 g/dL (6.3-8.2)
[2021-07-13] MEDS: ATORVASTATIN 20 MG TAB PO SCH (20:10)
[2021-07-13] MEDS: QUEtiapine 400 MG TAB PO SCH (20:10)
[2021-07-13 20:20] LABS: Chol/HDL Ratio 4.16 Ratio; LDL Cholesterol,Calculated 115.6 mg/dL (0.0-131.0)
[2021-07-13] MEDS ORDERED: MIRTAZAPINE 45 MG TABLET PO SCH (21:00)
[2021-07-14 05:15] VITALS: BP 136/80; PULSE 77; RESP 15; TEMP 97.9
[2021-07-14] MEDS: NICOTINE 14MG/24HR PATCH TRANSDERM SCH (08:14)
[2021-07-14] MEDS: FLUoxetine HCL 20 MG CAP PO SCH (08:15)
[2021-07-14] MEDS: LITHIUM CARBONATE 300 MG CAP PO SCH (08:15)
[2021-07-14] MEDS: PANTOPRAZOLE 40 MG TABLET PO SCH (08:15)
[2021-07-14] MEDS: CHOLECALCIFEROL 25 MCG (1000 IU) TABLET PO SCH (08:15)
[2021-07-14] MEDS: amLODIPine 5 MG TAB PO SCH (08:16)
[2021-07-14] MEDS: NALTREXONE HCL 50 MG TAB PO SCH (08:16)
--- NOTE | 2021-07-14 10:13 | P.DS ---
Providers Date of admission: 07/11/21 23:30 Expected date of discharge: 07/14/21 Attending physician: Del Kang MD Consults: 07/11/21 23:33 Consult Physician Routine Consulting Provider: Kermit Partida Consult Reason/Comments: H&P and medical Do you want consulting provider notified?: Yes Primary care physician: Kermit Partida - Discharge Diagnosis(es) (1) Major depressive disorder, recurrent episode Current Visit: Yes Status: Acute Priority: High (2) Alcohol dependence Current Visit: Yes Status: Acute Priority: High (3) Nicotine dependence Current Visit: Yes Status: Acute Priority: Low Hospital Course: Admission HPI: Admission note was completed by investment underwriter "Patient is a 55-year-old male with significant history of depression and alcohol abuse was admitted for suicidal ideation. single, currently on disability. Patient has presented to the hospital multiple times for similar mental health complaints including depression and suicidal thoughts and alcohol abuse. Patient is currently homeless. He presented on 07/10 for alcohol use, suicidal thoughts and was discharged from the ER. Patient returned on the for alcohol use suicidal thoughts and was brought in by police. Patient apparently was speaking about walking into traffic as a soft or suicide. His lithium level was 0.2 on admission. Patient was admitted to the mental health unit voluntarily. He claims that he is "tired of life" and states that he's been feeling this way for about a month now. He has very poor hygiene and grooming and has a disheveled appearance with long hair. He states that he is not doing well and that he feels "worse now". He states that he has been drinking on and off approximately 4 to call boy cans of beer every day or so. He states that he also has been having poor sleep. He claims that he has been taking his medications however was fairly vague about which ones they are and did not have a good history understanding of his medications. He had poor eye contact looking at the ground during the interview. He is denying any current withdrawal symptoms or history of delirium tremens. He states that his sleep is poor. Patient claims that he uses cigarettes and alcohol only. He is denying any current suicidal thoughts intent or plan or homicidal ideations. He is denying any auditory visual hallucinations." Hospital course: Upon admission to the unit patient was directable and agreeable to commence treatment and signed adult voluntary form. Patient got along well with other patients on the unit and followed unit protocol. Patient was compliant with the medications and denied any side effects throughout hospital course. Due to patient's heavy alcohol use, patient was placed on CIWA protocol with when necessary Ativan to prevent alcohol withdrawal. Patient was started on lithium 300 mg twice a day for mood stabilization/suicidality, Remeron was increased to 45 mg daily at bedtime for insomnia/mood/anxiety, Seroquel was resumed at 400 mg daily at bedtime for mood stabilization/augmentation, naltrexone by mouth was resumed at 50 mg daily for alcohol use disorder/cravings. Patient was restarted back on his home dose of Prozac 80 mg daily for mood/anxiety.. Patient spoke of his stressors and engaged in some therapy while on the unit. Patient was also seen by medical team for history and physical exam. Patient had significant changes in his electrolytes which were corrected over time. Throughout the c ourse of the hospitalization patient gradually improved with regards to mood, anxiety, sleep and returned back to their baseline level of functioning. Patient continues to have chronically poor insight and judgment into his condition and also his alcohol use. On the day of discharge patient denied any suicidal or homicidal ideations intent or plan denied any auditory or visual hallucinations. Patient endorsed wanting to live for his future and to get a house. The patient denied any access to guns or weapons. Patient denied any paranoia and did not endorse any delusions. Patient does have a significant history of substance abuse and was counseled on abstaining from all substances including alcohol and marijuana. Patient was offered however declined inpatient substance-abuse rehab. Patient was also counseled on the medications and need for regular compliance and was encouraged to follow-up with their outpatient appointment for mental health and also for primary care. Patient had pending charges and a warrant for his arrest from the local police department and that they will be informed on patient's discharge for transfer to intermediate. Mental status exam: General Appearance: Patient appears to be thin, disheveled, stated age is alert, pleasant, and tends to be cooperative. Patient is in no acute distress and has improved hygiene and grooming Behavior: Patient is calmly seated without any agitated behavior. Speech: Patient's speech is fluent and nonpressured. Mood/Affect: Patient reports their mood is "ok", affect is congruent Suicidality/Homicidality: Patient denies having any suicidal or homicidal ideation intent or plan. Perceptions: Patient denies any auditory or visual hallucinations. Though content/process: There is no evidence of any delusional thought content and thought process is linear and goal-directed. Memory and concentration: AOX3, grossly intact for the purposes of this session. Can spell "WORLD" backwards correctly. Judgment and insight: chronically poor, however has improved with guarded prognosis Impression: Major depressive disorder, recurrent, severe episode Alcohol dependence severe Nicotine dependence Plan: -Continue with discharge today as patient has improved and stabilized psychiatrically and is not currently an imminent threat to himself and/or others. Patient will remain at chronically elevated risk for harm to self and/or others due to his impulsivity and substance abuse. -Continue medications: [place] 300 mg twice a day for mood stabilization/suicidality, Remeron 45 mg daily at bedtime for insomnia/mood/anxiety, Seroquel 400 mg daily at bedtime for mood stabilization/augmentation, naltrexone by mouth 50 mg daily for alcohol use disorder/cravings, Prozac 80 mg daily for mood/anxiety. [facility] to consider placing patient on Vivitrol injection for etoh cravings/abuse -Patient was counseled on the need for medication compliance and appropriate follow-up at mental health and also primary care for medical issues. Patient verbalized understanding and agreed. -Social work to arrange with [facility] and local police department upon discharge to transfer to law enforcement as patient has current warrants out for his arrest. Social work also to arrange for patients follow up appointments with [facility] for psychiatric care along with follow up with primary care provider. -Patient counseled on abstaining from recreational drugs and marijuana and alcohol. Was informed/educated on the adverse effects on their physical and mental health. Patient verbally agreed and understood. Patient was offered substance abuse treatment however declined at this time. -Patient was instructed to return to the hospital or seek immediate medical care if their psychiatric or medical symptoms do worsen or reoccur. Allergies Allergy/AdvReac Type Severity Reaction Status Date / Time No Known Allergies Allergy Verified 07/12/21 03:22 Laboratory Results WBC 10.0 k/uL (3.8-10.6) 07/13/21 12:20 RBC 3.78 m/uL (4.30-5.90) L 07/13/21 12:20 Hgb 11.1 gm/dL (13.0-17.5) L 07/13/21 12:20 Hct 34.6 % (39.0-53.0) L 07/13/21 12:20 MCV 91.6 fL (80.0-100.0) 07/13/21 12:20 MCH 29.5 pg (25.0-35.0) 07/13/21 12:20 MCHC 32.2 g/dL (31.0-37.0) 07/13/21 12:20 RDW 15.1 % (11.5-15.5) 07/13/21 12:20 Plt Count 725 k/uL (150-450) H 07/13/21 12:20 MPV 7.6 07/13/21 12:20 Neutrophils % 70 % 07/13/21 12:20 Lymphocytes % 17 % 07/13/21 12:20 Monocytes % 6 % 07/13/21 12:20 Eosinophils % 4 % 07/13/21 12:20 Basophils % 1 % 07/13/21 12:20 Neutrophils # 7.0 k/uL (1.3-7.7) 07/13/21 12:20 Lymphocytes # 1.7 k/uL (1.0-4.8) 07/13/21 12:20 Monocytes # 0.6 k/uL (0-1.0) 07/13/21 12:20 Eosinophils # 0.4 k/uL (0-0.7) 07/13/21 12:20 Basophils # 0.1 k/uL (0-0.2) 07/13/21 12:20 Hypochromasia Slight 07/12/21 07:18 Sodium 140 mmol/L (137-145) 07/13/21 12:20 Potassium 4.5 mmol/L (3.5-5.1) 07/13/21 12:20 Chloride 108 mmol/L (98-107) H 07/13/21 12:20 Carbon Dioxide 26 mmol/L (22-30) 07/13/21 12:20 Anion Gap 6 mmol/L 07/13/21 12:20 BUN 13 mg/dL (9-20) 07/13/21 12:20 Creatinine 0.93 mg/dL (0.66-1.25) 07/13/21 12:20 Est GFR (CKD-EPI)AfAm >90 (>60 ml/min/1.73 sqM) 07/13/21 12:20 Est GFR (CKD-EPI)NonAf >90 (>60 ml/min/1.73 sqM) 07/13/21 12:20 Glucose 70 mg/dL (74-99) L 07/13/21 12:[address] Glu mg/dL 91 07/12/21 07:18 Hemoglobin A1c 4.8 % (4.0-6.0) 07/12/21 07:18 Calcium 9.1 mg/dL (8.4-10.2) 07/13/21 12:20 Total Bilirubin 0.4 mg/dL (0.2-1.3) 07/13/21 12:20 AST 20 U/L (17-59) 07/13/21 12:20 ALT 6 U/L (4-49) 07/13/21 12:20 Alkaline Phosphatase 106 U/L (38-126) 07/13/21 12:20 Total Protein 5.8 g/dL (6.3-8.2) L 07/13/21 12:20 Albumin 3.1 g/dL (3.5-5.0) L 07/13/21 12:20 Triglycerides 136.00 mg/dL (0.00-149.00) 07/12/21 07:18 Cholesterol 188.00 mg/dL (0.00-200.00) 07/12/21 07:18 LDL Cholesterol, Calc 115.6 mg/dL (0.0-131.0) 07/12/21 07:18 VLDL Cholesterol, Calc 27.20 mg/dL (5.00-40.00) 07/12/21 07:18 HDL Cholesterol 45.20 mg/dL (40.00-60.00) 07/12/21 07:18 Cholesterol/HDL Ratio 4.16 Ratio 07/12/21 07:18 TSH 3.170 mIU/L (0.465-4.680) 07/12/21 07:18 [place] 0.2 mmol/L 07/12/21 07:18 Coronavirus (PCR) Not Detected (Not Detectd) 07/11/21 18:54 Vital Signs Temp 97.9 F 07/14/21 05:14 Pulse 77 09/30/21 05:14 Resp 15 07/14/21 05:14 BP 136/80 07/14/21 05:14 Pulse Ox 97 07/12/21 00:25 Patient Condition at Discharge: Stable Plan - Discharge Summary Discharge Rx Participant: No New Discharge Prescriptions: New [place] Carbonate 300 mg PO BID 30 Days cap Mirtazapine [Remeron] 45 mg PO HS 30 Days tablet Cholecalciferol [Vitamin D3 (25 Mcg = 1000 Iu)] 125 mcg PO DAILY@0800 30 Days tablet Nicotine 14Mg/24Hr Patch [Habitrol] 1 patch TRANSDERM DAILY 14 Days patch Pantoprazole [Protonix] 40 mg PO DAILY@0800 30 Days tab Continue amLODIPine [Norvasc] 5 mg PO DAILY@0800 30 Days #0 FLUoxetine HCL 80 mg PO DAILY@0800 30 Days cap Atorvastatin [Lipitor] 20 mg PO HS@2099 30 Days #0 Naltrexone HCl [Revia] 50 mg PO DAILY@0800 30 Days tab QUEtiapine [SEROquel] 400 mg PO HS@1999 30 Days tab Discontinued Mirtazapine 30 mg PO HS@2100 Omeprazole 20 mg PO DAILY@0800 Cholecalciferol (Vitamin D3) [Vitamin D3 (5000 Iu)] 125 mcg PO DAILY@0800 [place] Carbonate 600 mg PO HS@2100 Discharge Medication List Atorvastatin [Lipitor] 20 mg PO HS@2100 30 Days #0 07/14/21 [Rx] Cholecalciferol [Vitamin D3 (25 Mcg = 1000 Iu)] 125 mcg PO DAILY@0800 30 Days tablet 07/14/21 [Rx] FLUoxetine HCL 80 mg PO DAILY@0800 30 Days cap 07/14/21 [Rx] [place] Carbonate 300 mg PO BID 30 Days cap 07/14/21 [Rx] Mirtazapine [Remeron] 45 mg PO HS 30 Days tablet 07/14/21 [Rx] Naltrexone HCl [Revia] 50 mg PO DAILY@0800 30 Days tab 07/14/21 [Rx] Nicotine 14Mg/24Hr Patch [Habitrol] 1 patch TRANSDERM DAILY 14 Days patch [Rx] Pantoprazole [Protonix] 40 mg PO DAILY@0800 30 Days tab 07/14/21 [Rx] QUEtiapine [SEROquel] 400 mg PO HS@1999 30 Days tab 07/14/21 [Rx] amLODIPine [Norvasc] 5 mg PO DAILY@0800 30 Days #0 07/14/21 [Rx] Follow up Appointment(s)/Referral(s): [facility] [Outside] - 1 Week ([facility] today upon arrival. [facility] to transfer services if pt is incarcerated out of [facility]. ) Kermit Partida MD [Primary Care Provider] - 1-2 days Activity/Diet/Wound Care/Special Instructions: Activity and diet as tolerated. Avoid the use of street drugs and alcohol. Take all medications as prescribed. When you are in need of refills on your medications please contact your medical provider and/or outpatient psychiatrist to have this done. Please go to scheduled outpatient appointment for aftercare treatment. If symptoms return or become worse, call the crisis line at and/or go to the nearest emergency room for evaluation. Discharge Disposition: OTHER INSTITUTION NOT DEFINED
== END 2021-07-14 12:32 | disposition home or self-care (01) | DRG 885 ==
LOC: EC 15:45 → 3MHU 23:30
PROVIDERS: ADMIT Psychiatry & Neurology Psychiatry; ATTEND Psychiatry & Neurology Psychiatry
DX: F33.2 Major depressive disorder, recurrent severe without psychotic features (principal); R45.851 Suicidal ideations; K70.10 Alcoholic hepatitis without ascites; K74.60 Unspecified cirrhosis of liver; J44.9 Chronic obstructive pulmonary disease, unspecified; F14.11 Cocaine abuse, in remission; F16.11 Hallucinogen abuse, in remission; F10.229 Alcohol dependence with intoxication, unspecified; Z20.822 Contact with and (suspected) exposure to COVID-19; I10 Essential (primary) hypertension; E87.5 Hyperkalemia; G47.00 Insomnia, unspecified; F12.11 Cannabis abuse, in remission; F41.9 Anxiety disorder, unspecified; H50.00 Unspecified esotropia; R45.87 Impulsiveness; F17.210 Nicotine dependence, cigarettes, uncomplicated; Z71.6 Tobacco abuse counseling; Z79.899 Other long term (current) drug therapy; Z71.41 Alcohol abuse counseling and surveillance of alcoholic; Z87.39 Personal history of other diseases of the musculoskeletal system and connective tissue; Z86.69 Personal history of other diseases of the nervous system and sense organs; Z59.0 Homelessness; Z56.0 Unemployment, unspecified; Z98.890 Other specified postprocedural states; Z81.1 Family history of alcohol abuse and dependence
CPT/HCPCS: 80053; 80061; 80178; 82075; 83036; 84443; 85025; 87635; 99285

== ENCOUNTER 2021-07-17 19:28 | Emergency (ER) | payer OTHER | END 2021-07-17 20:00 | disposition left against medical advice (07) | LOC: EC 19:28 | DX: Z53.21 Procedure and treatment not carried out due to patient leaving prior to being seen by health care provider (principal) | CPT/HCPCS: 99499 ==

== ENCOUNTER 2021-07-17 21:24 | Emergency (ER) | payer OTHER ==
[2021-07-17 21:33] VITALS: BP 151/88; PULSE 90; RESP 17; TEMP 98.3
[2021-07-18] MEDS ORDERED: MAG HYDROX/AL HYDROX/SIMETH 30 ML, HYOSCYAMINE ELIXIR 10 ML, LIDOCAINE VISCOUS 2% 10 ML PO STA ×3 (01:07)
[2021-07-18] MEDS ORDERED: ONDANSETRON 4 MG/2 ML VIAL IVP STA (01:07)
[2021-07-18 01:53] LABS: Basophils # (A) 0.1 k/uL (0-0.2); Basophils % (A) 0 %; Eosinophils # (A) 0.1 k/uL (0-0.7); Eosinophils % (A) 1 %; HCT 39.3 % (39.0-53.0); HGB 12.1 gm/dL (13.0-17.5); Lymphocytes # (A) 1.3 k/uL (1.0-4.8); Lymphocytes % (A) 6 %; MCH 28.2 pg (25.0-35.0); MCHC 30.8 g/dL (31.0-37.0); MCV 91.6 fL (80.0-100.0); Mean Platelet Volume 7.2; Monocytes % (A) 5 %; Neutrophils # (A) 18.1 k/uL (1.3-7.7); Neutrophils % (A) 87 %; Platelet Count 498 k/uL (150-450); RBC 4.29 m/uL (4.30-5.90); RDW 14.3 % (11.5-15.5); WBC 20.7 k/uL (3.8-10.6)
--- NOTE | 2021-07-18 02:16 | XR ---
EXAMINATION TYPE: XR chest 1V portable DATE OF EXAM: 07/18/2021 COMPARISON: 07/07/2021 HISTORY: Chest pain TECHNIQUE: FINDINGS: Heart and mediastinum are normal. Lungs are clear of infiltrate. There is no heart failure. There is no pleural effusion. Bony thorax is intact. IMPRESSION: Normal chest. No change.
[2021-07-18 02:22] LABS: INR 0.9 (<1.2); Prothrombin Time 9.7 sec (9.0-12.0)
[2021-07-18] MEDS ORDERED: NICOTINE 14MG/24HR PATCH TRANSDERM STA (02:26)
[2021-07-18 02:38] LABS: ALT 9 U/L (4-49); AST 33 U/L (17-59); African American GFR (CKD) >90 (>60 ml/min/1.73 sqM); Alcohol 79 mg/dL; Alkaline Phosphatase 118 U/L (38-126); Amylase 256 U/L (30-110); Anion Gap 12 mmol/L; Blood Urea Nitrogen 16 mg/dL (9-20); Calcium 9.3 mg/dL (8.4-10.2); Carbon Dioxide 20 mmol/L (22-30); Chloride 104 mmol/L (98-107); Glucose 108 mg/dL (74-99); Lipase 380 U/L (23-300); Non-African American GFR(CKD) 88 (>60 ml/min/1.73 sqM); Sodium 136 mmol/L (137-145); Total Bilirubin 0.5 mg/dL (0.2-1.3); Total Protein 6.8 g/dL (6.3-8.2)
[2021-07-18] MEDS ORDERED: ACETAMINOPHEN TAB 325 MG TAB PO STA (03:54)
--- NOTE | 2021-07-18 06:14 | ED ---
General Adult HPI - General Chief complaint: Alcohol Stated complaint: ETOH, Psych Time Seen by Provider: 07/17/21 21:35 Source: patient, EMS Mode of arrival: EMS Limitations: no limitations - History of Present Illness Initial comments: This patient is a 55-year-old man who presents to be evaluated for substernal burning that radiates to the epigastric area. He states he has had some vomiting that seemed to set off. Patient also initially was complaining of depression and feeling suicidal but he has subsequently stopped feeling away. -: hour(s) Location: chest Radiation: abdomen Quality: burning Consistency: intermittent Improves with: none Worsens with: other (Vomiting) Associated Symptoms: nausea/vomiting Treatments Prior to Arrival: none - Related Data Previous Rx's Medication Instructions Recorded Atorvastatin [Lipitor] 20 mg PO HS@2100 30 Days #0 07/14/21 Cholecalciferol [Vitamin D3 (25 125 mcg PO DAILY@0800 30 Days 07/14/21 Mcg = 1000 Iu)] tablet FLUoxetine HCL 80 mg PO DAILY@0800 30 Days cap 07/14/21 [place] Carbonate 300 mg PO BID 30 Days cap 07/14/21 Mirtazapine [Remeron] 45 mg PO HS 30 Days tablet 07/14/21 Naltrexone HCl [Revia] 50 mg PO DAILY@0800 30 Days tab 07/14/21 Nicotine 14Mg/24Hr Patch [Habitrol] 1 patch TRANSDERM DAILY 14 Days 07/14/21 patch Pantoprazole [Protonix] 40 mg PO DAILY@0800 30 Days tab 07/14/21 QUEtiapine [SEROquel] 400 mg PO HS@2000 30 Days tab 07/14/21 amLODIPine [Norvasc] 5 mg PO DAILY@0800 30 Days #0 07/14/21 Allergies Allergy/AdvReac Type Severity Reaction Status Date / Time No Known Allergies Allergy Verified 07/12/21 03:22 Review of Systems ROS Statement: Those systems with pertinent positive or pertinent negative responses have been documented in the HPI. ROS Other: All systems not noted in ROS Statement are negative. Constitutional: Denies: fever, chills Respiratory: Denies: cough, dyspnea Cardiovascular: Reports: as per HPI, chest pain. Denies: palpitations, edema, syncope Gastrointestinal: Reports: nausea, vomiting. Denies: abdominal pain, diarrhea Genitourinary: Denies: dysuria, hematuria Musculoskeletal: Denies: back pain Skin: Denies: rash Neurological: Denies: headache, weakness, numbness Past Medical History Past Medical History: Chest Pain / Angina, Hypertension Additional Past Medical History / Comment(s): ETOH History of Any Multi-Drug Resistant Organisms: None Reported Past Surgical History: Orthopedic Surgery Additional Past Surgical History / Comment(s): Right knee surgery and salma placed in left femur, 3 surgeries on his eyes. Past Anesthesia/Blood Transfusion Reactions: No Reported Reaction Past Psychological History: Anxiety, Bipolar, Depression, Schizoaffective Disorder Smoking Status: Current every day smoker Past Alcohol Use History: Abuse, Daily Past Drug Use History: None Reported - Past Family History Mother Additional Family Medical History / Comment(s): Mother at age 36 from motor vehicle accident. His father is also past but does not know the cause or his age. Patient has 3 brothers that are apparently without major medical problems. General Exam Limitations: no limitations General appearance: alert, in no apparent distress Head exam: Present: atraumatic, normocephalic Eye exam: Present: normal appearance. Absent: scleral icterus, conjunctival injection Neck exam: Present: normal inspection Respiratory exam: Present: normal lung sounds bilaterally. Absent: respiratory distress, wheezes, rales, rhonchi, stridor, chest wall tenderness Cardiovascular Exam: Present: regular rate, normal rhythm, normal heart sounds. Absent: systolic murmur, diastolic murmur, rubs, gallop GI/Abdominal exam: Present: soft. Absent: distended, tenderness, guarding, rebound, mass Extremities exam: Present: normal inspection, normal capillary refill Back exam: Present: normal inspection Neurological exam: Present: alert Skin exam: Present: warm, dry, intact, normal color. Absent: rash Course Vital Signs 07/17/21 21:28 Temperature 98.3 F Pulse Rate 90 Respiratory 17 Rate Blood Pressure 151/88 O2 Sat by Pulse 98 Oximetry Medical Decision Making - Lab Data Result diagrams: 07/18/21 01:35 07/18/21 01:35 Lab Results 07/18/21 07/18/21 07/18/21 Range/Units 01:35 01:35 01:35 WBC 20.7 H (3.8-10.6) k/uL RBC 4.29 L (4.30-5.90) m/uL Hgb 12.1 L (13.0-17.5) gm/dL Hct 39.3 (39.0-53.0) % MCV 91.6 (80.0-100.0) fL MCH 28.2 (25.0-35.0) pg MCHC 30.8 L (31.0-37.0) g/dL RDW 14.3 (11.5-15.5) % Plt Count 498 H (150-450) k/uL MPV 7.2 Neutrophils % 87 % Lymphocytes % 6 % Monocytes % 5 % Eosinophils % 1 % Basophils % 0 % Neutrophils # 18.1 H (1.3-7.7) k/uL Lymphocytes # 1.3 (1.0-4.8) k/uL Monocytes # 1.0 (0-1.0) k/uL Eosinophils # 0.1 (0-0.7) k/uL Basophils # 0.1 (0-0.2) k/uL PT 9.7 (9.0-12.0) sec INR 0.9 (<1.2) APTT 23.0 (22.0-30.0) sec Sodium 136 L (137-145) mmol/L Potassium 4.0 (3.5-5.1) mmol/L Chloride 104 (98-107) mmol/L Carbon Dioxide 20 L (22-30) mmol/L Anion Gap 12 mmol/L BUN 16 (9-20) mg/dL Creatinine 0.97 (0.66-1.25) mg/dL Est GFR (CKD-EPI)AfAm >90 (>60 ml/min/1.73 sqM) Est GFR (CKD-EPI)NonAf 88 (>60 ml/min/1.73 sqM) Glucose 108 H (74-99) mg/dL Calcium 9.3 (8.4-10.2) mg/dL Magnesium 2.0 (1.6-2.3) mg/dL Total Bilirubin 0.5 (0.2-1.3) mg/dL AST 33 (17-59) U/L ALT 9 (4-49) U/L Alkaline Phosphatase 118 (38-126) U/L Troponin I (0.000-0.034) ng/mL Total Protein 6.8 (6.3-8.2) g/dL Albumin 4.0 (3.5-5.0) g/dL Amylase 256 H (30-110) U/L Lipase 380 H (23-300) U/L Serum Alcohol 79 mg/dL 07/18/21 07/18/21 Range/Units 01:35 04:19 WBC (3.8-10.6) k/uL RBC (4.30-5.90) m/uL Hgb (13.0-17.5) gm/dL Hct (39.0-53.0) % MCV (80.0-100.0) fL MCH (25.0-35.0) pg MCHC (31.0-37.0) g/dL RDW (11.5-15.5) % Plt Count (150-450) k/uL MPV Neutrophils % % Lymphocytes % % Monocytes % % Eosinophils % % Basophils % % Neutrophils # (1.3-7.7) k/uL Lymphocytes # (1.0-4.8) k/uL Monocytes # (0-1.0) k/uL Eosinophils # (0-0.7) k/uL Basophils # (0-0.2) k/uL PT (9.0-12.0) sec INR (<1.2) APTT (22.0-30.0) sec Sodium (137-145) mmol/L Potassium (3.5-5.1) mmol/L Chloride (98-107) mmol/L Carbon Dioxide (22-30) mmol/L Anion Gap mmol/L BUN (9-20) mg/dL Creatinine (0.66-1.25) mg/dL Est GFR (CKD-EPI)AfAm (>60 ml/min/1.73 sqM) Est GFR (CKD-EPI)NonAf (>60 ml/min/1.73 sqM) Glucose (74-99) mg/dL Calcium (8.4-10.2) mg/dL Magnesium (1.6-2.3) mg/dL Total Bilirubin (0.2-1.3) mg/dL AST (17-59) U/L ALT (4-49) U/L Alkaline Phosphatase (38-126) U/L Troponin I <0.012 <0.012 (0.000-0.034) ng/mL Total Protein (6.3-8.2) g/dL Albumin (3.5-5.0) g/dL Amylase (30-110) U/L Lipase (23-300) U/L Serum Alcohol mg/dL Disposition Clinical Impression: Alcoholic gastritis, Chest pain Disposition: HOME SELF-CARE Condition: Fair Instructions (If sedation given, give patient instructions): Gastritis (ED), Alcohol Intoxication (ED) Is patient prescribed a controlled substance at d/c from ED?: No Referrals: None,Stated [Primary Care Provider] - 1-2 days
== END 2021-07-18 06:27 | disposition home or self-care (01) ==
LOC: EC 21:24
DX: K29.20 Alcoholic gastritis without bleeding (principal); I10 Essential (primary) hypertension; F31.9 Bipolar disorder, unspecified; F41.9 Anxiety disorder, unspecified; F25.9 Schizoaffective disorder, unspecified; F17.200 Nicotine dependence, unspecified, uncomplicated; Z79.899 Other long term (current) drug therapy
CPT/HCPCS: 82075; 36415; 93005; 80053; 82150; 83690; 83735; 84484; 85025; 85610; 85730; 71045; 96374; 99285; G0480; S4990; J2405; 80320

== ENCOUNTER 2021-07-18 23:24 | Emergency (ER) | payer OTHER ==
[2021-07-18 23:38] VITALS: BP 148/78; PULSE 84; RESP 18
--- NOTE | 2021-07-19 01:35 | ED ---
Psych HPI <Max Head - Last Filed: 07/19/21 02:38> - General Source: patient, EMS, RN notes reviewed Mode of arrival: EMS Limitations: no limitations <Ángel Klein - Last Filed: 07/19/21 03:21> - General Chief Complaint: Psychiatric Symptoms Stated Complaint: Mental Health Time Seen by Provider: 07/18/21 23:29 - History of Present Illness Initial Comments: This a 55-year-old male presents emergency Department with chief complaint of depression, suicidal ideation. Patient states that he's been drinking throughout the day. Patient denies any self-harm at this time denies any recent drug use. Patient denies any nausea vomiting denies any fevers or chills [facility] patient is a daily drinker. (Ángel Klein) - Related Data Previous Rx's Medication Instructions Recorded Atorvastatin [Lipitor] 20 mg PO HS@2100 30 Days #0 07/14/21 Cholecalciferol [Vitamin D3 (25 125 mcg PO DAILY@0800 30 Days 07/14/21 Mcg = 1000 Iu)] tablet FLUoxetine HCL 80 mg PO DAILY@0800 30 Days cap 07/14/21 [place] Carbonate 300 mg PO BID 30 Days cap 07/14/21 Mirtazapine [Remeron] 45 mg PO HS 30 Days tablet 07/14/21 Naltrexone HCl [Revia] 50 mg PO DAILY@0800 30 Days tab 07/14/21 Nicotine 14Mg/24Hr Patch [Habitrol] 1 patch TRANSDERM DAILY 14 Days 07/14/21 patch Pantoprazole [Protonix] 40 mg PO DAILY@0800 30 Days tab 07/14/21 QUEtiapine [SEROquel] 400 mg PO HS@2000 30 Days tab 07/14/21 amLODIPine [Norvasc] 5 mg PO DAILY@0800 30 Days #0 07/14/21 Allergies Allergy/AdvReac Type Severity Reaction Status Date / Time No Known Allergies Allergy Verified 07/12/21 03:22 Review of Systems ROS Other: All systems not noted in ROS Statement are negative. <Max Head - Last Filed: 07/19/21 02:38> ROS Other: All systems not noted in ROS Statement are negative. <Ángel Klein - Last Filed: 07/19/21 03:21> ROS Statement: Those systems with pertinent positive or pertinent negative responses have been documented in the HPI. Past Medical History Past Medical History: Chest Pain / Angina, Hypertension Additional Past Medical History / Comment(s): ETOH History of Any Multi-Drug Resistant Organisms: None Reported Past Surgical History: Orthopedic Surgery Additional Past Surgical History / Comment(s): Right knee surgery and salma placed in left femur, 3 surgeries on his eyes. Past Anesthesia/Blood Transfusion Reactions: No Reported Reaction Past Psychological History: Anxiety, Bipolar, Depression, Schizoaffective Disord er Past Alcohol Use History: Abuse, Daily - Past Family History Mother Additional Family Medical History / Comment(s): Mother at age 36 from motor vehicle accident. His father is also past but does not know the cause or his age. Patient has 3 brothers that are apparently without major medical problems. <Ángel Klein - Last Filed: 07/19/21 03:21> General Exam Limitations: no limitations General appearance: alert, in no apparent distress Head exam: Present: atraumatic, normocephalic, normal inspection Eye exam: Present: normal appearance, PERRL, EOMI. Absent: scleral icterus, conjunctival injection, periorbital swelling Neck exam: Present: normal inspection. Absent: tenderness, meningismus, lymphadenopathy Respiratory exam: Present: normal lung sounds bilaterally. Absent: respiratory distress, wheezes, rales, rhonchi, stridor Cardiovascular Exam: Present: regular rate, normal rhythm, normal heart sounds. Absent: systolic murmur, diastolic murmur, rubs, gallop, clicks Back exam: Absent: CVA tenderness (R), CVA tenderness (L) Neurological exam: Present: alert, oriented X3 <Ángel Klein - Last Filed: 07/19/21 03:21> Course Vital Signs 07/18/21 23:34 Pulse Rate 84 Respiratory 18 Rate Blood Pressure 148/78 O2 Sat by Pulse 97 Oximetry Medical Decision Making <Ángel Klein - Last Filed: 07/19/21 03:21> - Medical Decision Making Patient evaluated by EPS discharged in stable condition. (Ángel Klein) Disposition Is patient prescribed a controlled substance at d/c from ED?: No <Max Head - Last Filed: 07/19/21 02:38> Time of Disposition: 03:21 <Ángel Klein - Last Filed: 07/19/21 03:21> Clinical Impression: Alcohol intoxication, Mood disorder Disposition: HOME SELF-CARE Condition: Good Instructions (If sedation given, give patient instructions): Mood Disorders (ED), Alcohol Intoxication (ED) Additional Instructions: Please return to the Emergency Department if symptoms worsen or any other concerns. Referrals: Kermit Partida MD [Primary Care Provider] - 1-2 days
== END 2021-07-19 03:18 | disposition home or self-care (01) ==
LOC: EC 23:24
DX: F10.129 Alcohol abuse with intoxication, unspecified (principal); F32.9 Major depressive disorder, single episode, unspecified; R45.851 Suicidal ideations; I10 Essential (primary) hypertension; F41.9 Anxiety disorder, unspecified; Y90.9 Presence of alcohol in blood, level not specified
CPT/HCPCS: 99284